=== PATIENT | male | born 1950 | race African-American/Black ===

== ENCOUNTER 2017-06-08 13:41 | Inpatient (IN) | payer OTHER ==
[~2017-06-08] VITALS: Ht 185.4 cm; Wt 80.9 kg
--- NOTE | 2017-06-08 14:35 | RAD ---
Portable chest, 06/08/2017: History: Chest pain Comparison is made to a study from 10/19/2013. The heart size and pulmonary vascularity are normal. No pulmonary infiltrates are seen. There is no evidence of pleural fluid. IMPRESSION: No acute cardiopulmonary abnormality is detected.
[2017-06-08 14:49] LABS: BASO % 1 % (0-3); EOS % 4 % (0-3); HEMOGLOBIN 15.6 g/dL (13.0-17.5); LYMPH # 0.9 x10^3/uL (1.0-4.8); LYMPH % 22 % (24-48); MEAN CORPUSCULAR HEMOGLOBIN 33 pg (25-35); MEAN CORPUSCULAR HGB CONC 34 g/dL (31-37); MEAN CORPUSCULAR VOLUME 97 fL (79-100); MONO % 12 % (0-9); NEUT % 61 % (31-73); PLATELET COUNT 254 x10^3/uL (140-400); RED BLOOD COUNT 4.77 x10^6/uL (4.30-5.70); RED CELL DISTRIBUTION WIDTH 12.9 % (11.5-14.5); WHITE BLOOD COUNT 4.3 x10^3/uL (4.0-11.0)
--- NOTE | 2017-06-08 14:49 | PHYS DOC ---
Past Medical History Past Medical History: MS Past Surgical History: Angioplasty, Other Additional Past Surgical Histo: Cardiac stent 2011 Alcohol Use: Heavy Additional Information: 40 OUNCE BEER EVERY DAY Drug Use: None Adult General Chief Complaint Chief Complaint: MULTIPLE COMPLAINTS [facility] HPI Patient is a 67 year old male with a history of hypertension and coronary artery disease, stent placed 5 years ago presents to the ED complaining of shortness of breath increasing over the last 2 months and worsening over the last 2 days. Patient states he gets shortness of breath and mild chest discomfort with exertion. Patient states he has not seen a doctor since he had a stent placed 5 years ago. States he has quit smoking after the stent placement. Denies any symptoms at this time, dizziness, weakness, syncope, bowel pain, nausea/vomiting, abdominal pain or fever. Review of Systems Review of Systems Constitutional: Denies fever or chills [] Eyes: Denies change in visual acuity, redness, or eye pain [] HENT: Denies nasal congestion or sore throat [] Respiratory: Denies cough or shortness of breath [] Cardiovascular: No additional information not addressed in HPI [] GI: Denies abdominal pain, nausea, vomiting, bloody stools or diarrhea [] : Denies dysuria or hematuria [] Musculoskeletal: Denies back pain or joint pain [] Integument: Denies rash or skin lesions [] Neurologic: Denies headache, focal weakness or sensory changes [] Endocrine: Denies polyuria or polydipsia [] Allergies Allergies Allergies Coded Allergies Type Severity Reaction Last Updated Verified No Known Drug Allergies 10/19/13 No Physical Exam Physical Exam Constitutional: Well developed, well nourished, no acute distress, non-toxic appearance. [] HENT: Normocephalic, atraumatic, bilateral external ears normal, oropharynx moist, no oral exudates, nose normal. [] Eyes: PERRLA, EOMI, conjunctiva normal, no discharge. [] Neck: Normal range of motion, no tenderness, supple, no stridor. [] Cardiovascular:Heart rate regular rhythm, no murmur [] Lungs & Thorax: Bilateral breath sounds clear to auscultation [] Abdomen: Bowel sounds normal, soft, no tenderness, no masses, no pulsatile masses. [] Skin: Warm, dry, no erythema, no rash. [] Back: No tenderness, no CVA tenderness. [] Extremities: No tenderness, no cyanosis, no clubbing, ROM intact, no edema. [] Neurologic: Alert and oriented X 3, normal motor function, normal sensory function, no focal deficits noted. [] Psychologic: Affect normal, judgement normal, mood normal. [] Current Patient Data Vital Signs Vital Signs Date Time Temp Pulse Resp B/P (MAP) Pulse Ox O2 Delivery O2 Flow Rate FiO2 06/08/17 13:46 98.5 64 18 179/85 (116) 99 Room Air 98.5 Lab Values Laboratory Tests Test 06/08/17 14:35 White Blood Count 4.3 x10^3/uL (4.0-11.0) Red Blood Count 4.77 x10^6/uL (4.30-5.70) Hemoglobin 15.6 g/dL (13.0-17.5) Hematocrit 46.0 % (39.0-53.0) Mean Corpuscular Volume 97 fL (79-100) Mean Corpuscular Hemoglobin 33 pg (25-35) Mean Corpuscular Hemoglobin Concent 34 g/dL (31-37) Red Cell Distribution Width 12.9 % (11.5-14.5) Platelet Count 254 x10^3/uL (140-400) Neutrophils (%) (Auto) 61 % (31-73) Lymphocytes (%) (Auto) 22 % (24-48) L Monocytes (%) (Auto) 12 % (0-9) H Eosinophils (%) (Auto) 4 % (0-3) H Basophils (%) (Auto) 1 % (0-3) Neutrophils # (Auto) 2.6 x10^3uL (1.8-7.7) Lymphocytes # (Auto) 0.9 x10^3/uL (1.0-4.8) L Monocytes # (Auto) 0.5 x10^3/uL (0.0-1.1) Eosinophils # (Auto) 0.2 x10^3/uL (0.0-0.7) Basophils # (Auto) 0.0 x10^3/uL (0.0-0.2) Prothrombin Time 12.7 SEC (11.7-14.0) Prothrombin Time INR 1.0 (0.8-1.1) Sodium Level 141 mmol/L (136-145) Potassium Level 3.5 mmol/L (3.5-5.1) Chloride Level 104 mmol/L (98-107) Carbon Dioxide Level 27 mmol/L (21-32) Anion Gap 10 (6-14) Blood Urea Nitrogen 9 mg/dL (8-26) Creatinine 1.0 mg/dL (0.7-1.3) Estimated GFR (Cockcroft-Gault) 90.7 Glucose Level 129 mg/dL (70-99) H Calcium Level 8.8 mg/dL (8.5-10.1) Total Bilirubin 0.8 mg/dL (0.2-1.0) Direct Bilirubin 0.2 mg/dL (0.0-0.2) Aspartate Amino Transferase (AST) 23 U/L (15-37) Alanine Aminotransferase (ALT) 35 U/L (16-63) Alkaline Phosphatase 82 U/L (46-116) Creatine Kinase 105 U/L (39-308) Creatine Kinase MB (Mass) 1.8 ng/mL (0.0-3.6) Creatine Kinase MB Relative Index 1.7 % (0-4) Troponin I Quantitative 0.040 ng/mL (0.000-0.055) VQ-Glv-C-Type Natriuretic Peptide 393 pg/mL (0-124) H Total Protein 8.4 g/dL (6.4-8.2) H Albumin 4.2 g/dL (3.4-5.0) Laboratory Tests 06/08/17 14:35 Laboratory Tests 06/08/17 14:35 EKG EKG EKG shows normal sinus rhythm at 62 bpm, left atrial abnormality, right bundle- branch block, no STEMI, no acute ischemic changes.[] Radiology/Procedures Radiology/Procedures PROCEDURE: PORTABLE CHEST 1V Portable chest, 06/08/2017: History: Chest pain Comparison is made to a study from 10/19/2013. The heart size and pulmonary vascularity are normal. No pulmonary infiltrates are seen. There is no evidence of pleural fluid. IMPRESSION: No acute cardiopulmonary abnormality is detected.[] Course & Med Decision Making Course & Med Decision Making Pertinent Labs and Imaging studies reviewed. (See chart for details) []Discussed case with hospitalist, Dr. Hahn. Agrees to admission and further management patient. Patient stable for admission. Dragon Disclaimer Dragon Disclaimer This electronic medical record was generated, in whole or in part, using a voice recognition dictation system. Departure Departure Impression: Primary Impression: Shortness of breath Additional Impression: Chest pain Disposition: 09 ADMITTED INPATIENT Admitting Physician: Chadd Hahn Condition: STABLE Referrals: NO PCP (PCP) Problem Qualifiers OG SHAH Jun 08, 2017 14:49
--- NOTE | 2017-06-08 14:58 | EKG ---
[facility] [address] [place] [address] Test Date: 2017-06-08 Test Time: 14:20:23 Pat Name: MAXIMO HINOJOSA Department: Room: Gender: M [employer] Maker: : [id number] Requested By: OG SHAH Order Number: [id number] Reading MD: Silvia Reeder Measurements Intervals [place] Rate: 62 P: 63 NH: 88 QRS: 64 QRSD: 128 T: -159 QT: 442 QTc: 451 Interpretive Statements SINUS RHYTHM LEFT ATRIAL ABNORMALITY RIGHT BUNDLE BRANCH BLOCK QRS(T) CONTOUR ABNORMALITY CONSISTENT WITH LATERAL INFARCT AGE UNDETERMINED ABNORMAL ECG Electronically Signed On 06-13-2017 21:51:41 CDT by Silvia Reeder
[2017-06-08 15:01] LABS: PROTHROMBIN TIME PATIENT 12.7 SEC (11.7-14.0)
[2017-06-08 15:05] LABS: CALCIUM 8.8 mg/dL (8.5-10.1); GFR 90.7; POTASSIUM 3.5 mmol/L (3.5-5.1)
[2017-06-08 15:11] LABS: ALBUMIN 4.2 g/dL (3.4-5.0); DIRECT BILIRUBIN 0.2 mg/dL (0.0-0.2); TOTAL BILIRUBIN 0.8 mg/dL (0.2-1.0); TOTAL PROTEIN 8.4 g/dL (6.4-8.2)
[2017-06-08 15:18] LABS: CKMB MASS 1.8 ng/mL (0.0-3.6)
[2017-06-08 15:57] LABS: BILIRUBIN,URINE SMALL (NEG); GLUCOSE,URINE NEGATIVE (NEG); NITRITE,URINE NEGATIVE (NEG); PROTEIN,URINE NEGATIVE (NEG-TRACE)
[2017-06-08 16:07] LABS: BACTERIA,URINE 0 /HPF (0-FEW); RBC,URINE 0 /HPF (0-2); WBC,URINE 0 /HPF (0-4)
[2017-06-08] MEDS ORDERED: MORPHINE SULFATE 4 MG/ML DISP.SYRIN. IV PRN ×2 (16:45→17:45)
[2017-06-08] MEDS ORDERED: ONDANSETRON PF 4 MG/2 ML VIAL. IV PRN ×2 (16:45→17:45)
[2017-06-08 17:45] VITALS: BP 136/88
[2017-06-08] MEDS ORDERED: DOCUSATE SODIUM 100 MG CAPSULE. PO PRN (17:45)
[2017-06-08] MEDS ORDERED: ALBUTEROL SULFATE 2.5 MG/3 ML NEBU. NEB PRN (17:45)
[2017-06-08] MEDS ORDERED: traMADol 50 MG TABLET PO PRN (17:45)
[2017-06-08] MEDS ORDERED: ACETAMINOPHEN 325 MG TABLET. PO PRN (17:45)
[2017-06-08] MEDS ORDERED: hydrALAZINE 20 MG/ML VIAL. IVP PRN (17:45)
--- NOTE | 2017-06-08 17:45 | PDOC1 ---
History and Physical Date of Admission Date of Admission 06/08/17 Identification/Chief Complaint Chief Complaint sob Problems: Source Source: Chart review, Patient History of Present Illness History of Present Illness HPI Patient is a 67 year old male with a history of hypertension and coronary artery disease, stent placed at obtuse marginal branch 2013 here, came to ER for sob for a few months. Pt said since the PCI 2013, he stop smoking, but also stop seeing any PCP or card for a long time and not taking meds. He said he had insurance , but not getting along well with the docs. drinks 1 beer daily. denies drugs. He said in the past few months, he started to feel exertional sob easily, for example, cannot mow yard anymore. When he felt sob, he would feel some chest discomfort too, not real chest pain. Denies cough, fever, chills. He said he can lie flat to sleep, however, he woke up easily recently after sleeping for 10-15min, but not 2/2 sob. He cannot tell if he snores a lot since lives alone. also c/o unsteady gait, feels bl ext tired if walking or standing for a long time, not weakness, sometimes numbness. was found BP 180 in ER. Denies any symptoms at this time, dizziness, weakness, syncope, bowel pain, nausea/vomiting, abdominal pain. Past Medical History Cardiovascular: CAD, HTN Past Surgical History Past Surgical History: No pertinent history Family History Family History: Hypertension Social History Smoke: Quit ALCOHOL: heavy Drugs: None Current Problem List Problem List Problems Medical Problems: (1) Chest pain Status: Acute (2) Shortness of breath Status: Acute Current Medications Current Medications Current Medications Medications (Trade) Dose Ordered Sig/Comfort Start Time Stop Time Status Last Admin Dose Admin Morphine Sulfate 2 mg PRN Q2HR PRN 06/08/17 16:45 06/09/17 16:44 Ondansetron HCl (Zofran) 4 mg PRN Q8HRS PRN 06/08/17 16:45 06/09/17 16:44 Allergies Allergies Allergies Coded Allergies Type Severity Reaction Last Updated Verified No Known Drug Allergies 10/19/13 No ROS Review of System CONSTITUTIONAL: No fever or chills EYES: No recent changes SKIN: No rash or itching CARDIOVASCULAR: No chest pain, syncope, palpitations, or edema RESPIRATORY: + SOB , no cough GASTROINTESTINAL: No nausea, vomiting or abdominal pain NEUROLOGICAL: No headaches or weakness ENDOCRINE: No cold or heat intolerance GENITOURINARY: No urgency or frequency of urination MUSCULOSKELETAL: No back pain or joint pain LYMPHATICS: No enlarged lymph nodes PSYCHIATRIC: No anxiety or depression Physical Exam Physical Exam GEN.: No apparent distress. Alert and oriented. HEENT: Head is normocephalic, atraumatic NECK: Supple. LUNGS: Clear to auscultation. HEART: RRR, S1, S2 present. Peripheral pulses intact ABDOMEN: Soft, nontender. Positive bowel sounds. EXTREMITIES: Without any cyanosis. NEUROLOGIC: Normal speech, normal tone PSYCHIATRIC: Normal affect, normal mood. SKIN: No ulcerations Vitals Vitals Vital Signs Date Time Temp Pulse Resp B/P (MAP) Pulse Ox O2 Delivery O2 Flow Rate FiO2 06/08/17 13:46 98.5 64 18 179/85 (116) 99 Room Air 98.5 Labs Labs Laboratory Tests Test 06/08/17 14:35 06/08/17 15:35 06/08/17 16:45 White Blood Count 4.3 x10^3/uL (4.0-11.0) Red Blood Count 4.77 x10^6/uL (4.30-5.70) Hemoglobin 15.6 g/dL (13.0-17.5) Hematocrit 46.0 % (39.0-53.0) Mean Corpuscular Volume 97 fL (79-100) Mean Corpuscular Hemoglobin 33 pg (25-35) Mean Corpuscular Hemoglobin Concent 34 g/dL (31-37) Red Cell Distribution Width 12.9 % (11.5-14.5) Platelet Count 254 x10^3/uL (140-400) Neutrophils (%) (Auto) 61 % (31-73) Lymphocytes (%) (Auto) 22 % (24-48) Monocytes (%) (Auto) 12 % (0-9) Eosinophils (%) (Auto) 4 % (0-3) Basophils (%) (Auto) 1 % (0-3) Neutrophils # (Auto) 2.6 x10^3uL (1.8-7.7) Lymphocytes # (Auto) 0.9 x10^3/uL (1.0-4.8) Monocytes # (Auto) 0.5 x10^3/uL (0.0-1.1) Eosinophils # (Auto) 0.2 x10^3/uL (0.0-0.7) Basophils # (Auto) 0.0 x10^3/uL (0.0-0.2) Prothrombin Time 12.7 SEC (11.7-14.0) Prothromb Time International Ratio 1.0 (0.8-1.1) Sodium Level 141 mmol/L (136-145) Potassium Level 3.5 mmol/L (3.5-5.1) Chloride Level 104 mmol/L (98-107) Carbon Dioxide Level 27 mmol/L (21-32) Anion Gap 10 (6-14) Blood Urea Nitrogen 9 mg/dL (8-26) Creatinine 1.0 mg/dL (0.7-1.3) Estimated GFR (Cockcroft-Gault) 90.7 Glucose Level 129 mg/dL (70-99) Calcium Level 8.8 mg/dL (8.5-10.1) Total Bilirubin 0.8 mg/dL (0.2-1.0) Direct Bilirubin 0.2 mg/dL (0.0-0.2) Aspartate Amino Transf (AST/SGOT) 23 U/L (15-37) Alanine Aminotransferase (ALT/SGPT) 35 U/L (16-63) Alkaline Phosphatase 82 U/L (46-116) Creatine Kinase 105 U/L (39-308) Creatine Kinase MB (Mass) 1.8 ng/mL (0.0-3.6) Creatine Kinase MB Relative Index 1.7 % (0-4) Troponin I Quantitative 0.040 ng/mL (0.000-0.055) 0.033 ng/mL (0.000-0.055) LM-Vey-Y-Type Natriuretic Peptide 393 pg/mL (0-124) Total Protein 8.4 g/dL (6.4-8.2) Albumin 4.2 g/dL (3.4-5.0) Urine Collection Type Void Urine Color Donna Urine Clarity Clear Urine pH 7.0 Urine Specific [place] 1.025 Urine Protein Negative mg/dL (NEG-TRACE) Urine Glucose (UA) Negative mg/dL (NEG) Urine Ketones (Stick) Negative mg/dL (NEG) Urine Blood Negative (NEG) Urine Nitrite Negative (NEG) Urine Bilirubin Small (NEG) Urine Urobilinogen Dipstick 1.0 mg/dL (0.2 mg/dL) Urine Leukocyte Esterase Negative (NEG) Urine RBC 0 /HPF (0-2) Urine WBC 0 /HPF (0-4) Urine Bacteria 0 /HPF (0-FEW) Urine Mucus Marked /LPF Laboratory Tests Test 06/08/17 14:35 06/08/17 15:35 06/08/17 16:45 White Blood Count 4.3 x10^3/uL (4.0-11.0) Red Blood Count 4.77 x10^6/uL (4.30-5.70) Hemoglobin 15.6 g/dL (13.0-17.5) Hematocrit 46.0 % (39.0-53.0) Mean Corpuscular Volume 97 fL (79-100) Mean Corpuscular Hemoglobin 33 pg (25-35) Mean Corpuscular Hemoglobin Concent 34 g/dL (31-37) Red Cell Distribution Width 12.9 % (11.5-14.5) Platelet Count 254 x10^3/uL (140-400) Neutrophils (%) (Auto) 61 % (31-73) Lymphocytes (%) (Auto) 22 % (24-48) Monocytes (%) (Auto) 12 % (0-9) Eosinophils (%) (Auto) 4 % (0-3) Basophils (%) (Auto) 1 % (0-3) Neutrophils # (Auto) 2.6 x10^3uL (1.8-7.7) Lymphocytes # (Auto) 0.9 x10^3/uL (1.0-4.8) Monocytes # (Auto) 0.5 x10^3/uL (0.0-1.1) Eosinophils # (Auto) 0.2 x10^3/uL (0.0-0.7) Basophils # (Auto) 0.0 x10^3/uL (0.0-0.2) Prothrombin Time 12.7 SEC (11.7-14.0) Prothromb Time International Ratio 1.0 (0.8-1.1) Sodium Level 141 mmol/L (136-145) Potassium Level 3.5 mmol/L (3.5-5.1) Chloride Level 104 mmol/L (98-107) Carbon Dioxide Level 27 mmol/L (21-32) Anion Gap 10 (6-14) Blood Urea Nitrogen 9 mg/dL (8-26) Creatinine 1.0 mg/dL (0.7-1.3) Estimated GFR (Cockcroft-Gault) 90.7 Glucose Level 129 mg/dL (70-99) Calcium Level 8.8 mg/dL (8.5-10.1) Total Bilirubin 0.8 mg/dL (0.2-1.0) Direct Bilirubin 0.2 mg/dL (0.0-0.2) Aspartate Amino Transf (AST/SGOT) 23 U/L (15-37) Alanine Aminotransferase (ALT/SGPT) 35 U/L (16-63) Alkaline Phosphatase 82 U/L (46-116) Creatine Kinase 105 U/L (39-308) Creatine Kinase MB (Mass) 1.8 ng/mL (0.0-3.6) Creatine Kinase MB Relative Index 1.7 % (0-4) Troponin I Quantitative 0.040 ng/mL (0.000-0.055) 0.033 ng/mL (0.000-0.055) MU-Eld-V-Type Natriuretic Peptide 393 pg/mL (0-124) Total Protein 8.4 g/dL (6.4-8.2) Albumin 4.2 g/dL (3.4-5.0) Urine Collection Type Void Urine Color Donna Urine Clarity Clear Urine pH 7.0 Urine Specific [place] 1.025 Urine Protein Negative mg/dL (NEG-TRACE) Urine Glucose (UA) Negative mg/dL (NEG) Urine Ketones (Stick) Negative mg/dL (NEG) Urine Blood Negative (NEG) Urine Nitrite Negative (NEG) Urine Bilirubin Small (NEG) Urine Urobilinogen Dipstick 1.0 mg/dL (0.2 mg/dL) Urine Leukocyte Esterase Negative (NEG) Urine RBC 0 /HPF (0-2) Urine WBC 0 /HPF (0-4) Urine Bacteria 0 /HPF (0-FEW) Urine Mucus Marked /LPF VTE Prophylaxis Ordered VTE Prophylaxis Devices: Yes VTE Pharmacological Prophylaxi: Yes Assessment/Plan Assessment/Plan sob, need to rule out CHF H/O CAD 2013 with 1 stent at obtuse marginal branch HTN urgency uncompliance alcoholism quit smoking unsteady gait plan: card consult cycle CE check tsh, vitb12, orthostatic bp, lipid panel Echo hydralazine prn, add lisinopril for now dvt ppx folic acid, vitb1 MADDI WIGGINS MD Jun 08, 2017 17:45
[2017-06-08] MEDS ORDERED: LISINOPRIL 40 MG TABLET. PO SCH (18:00)
[2017-06-08 19:11] VITALS: BP 150/75
[2017-06-08] MEDS: FOLIC ACID 1 MG TABLET. PO SCH (19:40)
[2017-06-08] MEDS: THIAMINE 100 MG TABLET. PO SCH (19:40)
[2017-06-08] MEDS: ENOXAPARIN 40 MG/0.4 ML SYRINGE. SQ SCH (19:41)
[2017-06-08 21:04] LABS: BARBITURATES NEG (NEG); BENZODIAZEPINES NEG (NEG); CANNABINOIDS NEG (NEG); COCAINE NEG (NEG); METHADONE NEG (NEG); OPIATES NEG (NEG); PHENCYCLIDINE NEG (NEG)
[2017-06-08] MEDS: ZOLPIDEM 5 MG TABLET. PO PRN (22:43)
[2017-06-08 23:00] VITALS: BP 167/93
[2017-06-09 03:00] VITALS: BP 148/95
[2017-06-09 06:04] LABS: ALBUMIN 3.6 g/dL (3.4-5.0); ALBUMIN/GLOBULIN RATIO 1.1 (1.0-1.7); BASO # 0.1 x10^3/uL (0.0-0.2); BASO % 1 % (0-3); CALCIUM 8.9 mg/dL (8.5-10.1); CREATININE 0.8 mg/dL (0.7-1.3); EOS % 5 % (0-3); GFR 117.4; HEMATOCRIT 41.7 % (39.0-53.0); HEMOGLOBIN 14.3 g/dL (13.0-17.5); LYMPH # 1.6 x10^3/uL (1.0-4.8); LYMPH % 33 % (24-48); MEAN CORPUSCULAR HEMOGLOBIN 33 pg (25-35); MEAN CORPUSCULAR HGB CONC 34 g/dL (31-37); MEAN CORPUSCULAR VOLUME 96 fL (79-100); MONO % 15 % (0-9); NEUT % 47 % (31-73); PLATELET COUNT 225 x10^3/uL (140-400); POTASSIUM 3.6 mmol/L (3.5-5.1); RED BLOOD COUNT 4.34 x10^6/uL (4.30-5.70); TOTAL BILIRUBIN 1.5 mg/dL (0.2-1.0); TOTAL PROTEIN 6.9 g/dL (6.4-8.2); WHITE BLOOD COUNT 4.7 x10^3/uL (4.0-11.0)
[2017-06-09 06:07] LABS: CHOLESTEROL/HDL RATIO 2.3
[2017-06-09 07:00] VITALS: BP 145/83
[2017-06-09] MEDS: LISINOPRIL 20 MG TABLET PO SCH (09:00)
--- NOTE | 2017-06-09 10:41 | PDOC ---
PROGRESS NOTES Chief Complaint Chief Complaint chronic diastolic CHF H/O CAD 2013 with 1 stent at obtuse marginal branch HTN poor control, noncompliant with emds alcohol abuse d/o, prior tobaccoism leg weakness, unsteady gait and peripheral neuropathy History of Present Illness History of Present Illness B12 shot, thiamine and folate Dr. Hardwick consult for leg weakness, may be peripheral, htn better control, Dr. Lowry to follow, no ACS Vitals Vitals Vital Signs Date Time Temp Pulse Resp B/P (MAP) Pulse Ox O2 Delivery O2 Flow Rate FiO2 06/09/17 07:00 98.1 63 18 145/83 (103) 98 Room Air 98.1 Physical Exam General: Oriented X3, Cooperative, No acute distress Heart: Regular rate, No murmurs Lungs: Clear Abdomen: Normal bowel sounds, Soft Extremities: No clubbing Skin: No rashes, No breakdown Labs LABS Laboratory Tests Test 06/08/17 14:35 06/08/17 15:35 06/08/17 16:45 06/08/17 19:40 White Blood Count 4.3 x10^3/uL (4.0-11.0) Red Blood Count 4.77 x10^6/uL (4.30-5.70) Hemoglobin 15.6 g/dL (13.0-17.5) Hematocrit 46.0 % (39.0-53.0) Mean Corpuscular Volume 97 fL (79-100) Mean Corpuscular Hemoglobin 33 pg (25-35) Mean Corpuscular Hemoglobin Concent 34 g/dL (31-37) Red Cell Distribution Width 12.9 % (11.5-14.5) Platelet Count 254 x10^3/uL (140-400) Neutrophils (%) (Auto) 61 % (31-73) Lymphocytes (%) (Auto) 22 % (24-48) Monocytes (%) (Auto) 12 % (0-9) Eosinophils (%) (Auto) 4 % (0-3) Basophils (%) (Auto) 1 % (0-3) Neutrophils # (Auto) 2.6 x10^3uL (1.8-7.7) Lymphocytes # (Auto) 0.9 x10^3/uL (1.0-4.8) Monocytes # (Auto) 0.5 x10^3/uL (0.0-1.1) Eosinophils # (Auto) 0.2 x10^3/uL (0.0-0.7) Basophils # (Auto) 0.0 x10^3/uL (0.0-0.2) Prothrombin Time 12.7 SEC (11.7-14.0) Prothromb Time International Ratio 1.0 (0.8-1.1) Sodium Level 141 mmol/L (136-145) Potassium Level 3.5 mmol/L (3.5-5.1) Chloride Level 104 mmol/L (98-107) Carbon Dioxide Level 27 mmol/L (21-32) Anion Gap 10 (6-14) Blood Urea Nitrogen 9 mg/dL (8-26) Creatinine 1.0 mg/dL (0.7-1.3) Estimated GFR (Cockcroft-Gault) 90.7 Glucose Level 129 mg/dL (70-99) Calcium Level 8.8 mg/dL (8.5-10.1) Total Bilirubin 0.8 mg/dL (0.2-1.0) Direct Bilirubin 0.2 mg/dL (0.0-0.2) Aspartate Amino Transf (AST/SGOT) 23 U/L (15-37) Alanine Aminotransferase (ALT/SGPT) 35 U/L (16-63) Alkaline Phosphatase 82 U/L (46-116) Creatine Kinase 105 U/L (39-308) Creatine Kinase MB (Mass) 1.8 ng/mL (0.0-3.6) Creatine Kinase MB Relative Index 1.7 % (0-4) Troponin I Quantitative 0.040 ng/mL (0.000-0.055) 0.033 ng/mL (0.000-0.055) 0.028 ng/mL (0.000-0.055) KE-Gtl-Q-Type Natriuretic Peptide 393 pg/mL (0-124) Total Protein 8.4 g/dL (6.4-8.2) Albumin 4.2 g/dL (3.4-5.0) Urine Collection Type Void Urine Color Donna Urine Clarity Clear Urine pH 7.0 Urine Specific [place] 1.025 Urine Protein Negative mg/dL (NEG-TRACE) Urine Glucose (UA) Negative mg/dL (NEG) Urine Ketones (Stick) Negative mg/dL (NEG) Urine Blood Negative (NEG) Urine Nitrite Negative (NEG) Urine Bilirubin Small (NEG) Urine Urobilinogen Dipstick 1.0 mg/dL (0.2 mg/dL) Urine Leukocyte Esterase Negative (NEG) Urine RBC 0 /HPF (0-2) Urine WBC 0 /HPF (0-4) Urine Bacteria 0 /HPF (0-FEW) Urine Mucus Marked /LPF Urine Opiates Screen Neg (NEG) Urine Methadone Screen Neg (NEG) Urine Barbiturates Neg (NEG) Urine Phencyclidine Screen Neg (NEG) Urine Amphetamine/Methamphetamine Neg (NEG) Urine Benzodiazepines Screen Neg (NEG) Urine Cocaine Screen Neg (NEG) Urine Cannabinoids Screen Neg (NEG) Urine Ethyl Alcohol Neg (NEG) Test 06/09/17 04:40 White Blood Count 4.7 x10^3/uL (4.0-11.0) Red Blood Count 4.34 x10^6/uL (4.30-5.70) Hemoglobin 14.3 g/dL (13.0-17.5) Hematocrit 41.7 % (39.0-53.0) Mean Corpuscular Volume 96 fL (79-100) Mean Corpuscular Hemoglobin 33 pg (25-35) Mean Corpuscular Hemoglobin Concent 34 g/dL (31-37) Red Cell Distribution Width 13.0 % (11.5-14.5) Platelet Count 225 x10^3/uL (140-400) Neutrophils (%) (Auto) 47 % (31-73) Lymphocytes (%) (Auto) 33 % (24-48) Monocytes (%) (Auto) 15 % (0-9) Eosinophils (%) (Auto) 5 % (0-3) Basophils (%) (Auto) 1 % (0-3) Neutrophils # (Auto) 2.2 x10^3uL (1.8-7.7) Lymphocytes # (Auto) 1.6 x10^3/uL (1.0-4.8) Monocytes # (Auto) 0.7 x10^3/uL (0.0-1.1) Eosinophils # (Auto) 0.2 x10^3/uL (0.0-0.7) Basophils # (Auto) 0.1 x10^3/uL (0.0-0.2) Sodium Level 138 mmol/L (136-145) Potassium Level 3.6 mmol/L (3.5-5.1) Chloride Level 103 mmol/L (98-107) Carbon Dioxide Level 25 mmol/L (21-32) Anion Gap 10 (6-14) Blood Urea Nitrogen 10 mg/dL (8-26) Creatinine 0.8 mg/dL (0.7-1.3) Estimated GFR (Cockcroft-Gault) 117.4 BUN/Creatinine Ratio 13 (6-20) Glucose Level 98 mg/dL (70-99) Calcium Level 8.9 mg/dL (8.5-10.1) Total Bilirubin 1.5 mg/dL (0.2-1.0) Aspartate Amino Transf (AST/SGOT) 18 U/L (15-37) Alanine Aminotransferase (ALT/SGPT) 28 U/L (16-63) Alkaline Phosphatase 67 U/L (46-116) Troponin I Quantitative 0.024 ng/mL (0.000-0.055) Total Protein 6.9 g/dL (6.4-8.2) Albumin 3.6 g/dL (3.4-5.0) Albumin/Globulin Ratio 1.1 (1.0-1.7) Triglycerides Level 66 mg/dL (0-150) Cholesterol Level 148 mg/dL (0-200) LDL Cholesterol, Calculated 70 mg/dL (0-100) VLDL Cholesterol, Calculated 13 mg/dL (0-40) Non-HDL Cholesterol Calculated 83 mg/dL (0-129) HDL Cholesterol 65 mg/dL (40-60) Cholesterol/HDL Ratio 2.3 Vitamin B12 Level 284 pg/mL (247-911) Thyroid Stimulating Hormone (TSH) 1.792 uIU/mL (0.358-3.74) Review of Systems Review of Systems leg weakness, dyspnea with exertion Assessment and Plan Assessmemt and Plan Problems Medical Problems: (1) Chest pain Status: Acute (2) Shortness of breath Status: Acute Problems: Comment Review of Relevant I have reviewed the following items chetan (where applicable) has been applied. Labs Laboratory Tests Test 06/08/17 14:35 06/08/17 15:35 06/08/17 16:45 06/08/17 19:40 White Blood Count 4.3 x10^3/uL (4.0-11.0) Red Blood Count 4.77 x10^6/uL (4.30-5.70) Hemoglobin 15.6 g/dL (13.0-17.5) Hematocrit 46.0 % (39.0-53.0) Mean Corpuscular Volume 97 fL (79-100) Mean Corpuscular Hemoglobin 33 pg (25-35) Mean Corpuscular Hemoglobin Concent 34 g/dL (31-37) Red Cell Distribution Width 12.9 % (11.5-14.5) Platelet Count 254 x10^3/uL (140-400) Neutrophils (%) (Auto) 61 % (31-73) Lymphocytes (%) (Auto) 22 % (24-48) Monocytes (%) (Auto) 12 % (0-9) Eosinophils (%) (Auto) 4 % (0-3) Basophils (%) (Auto) 1 % (0-3) Neutrophils # (Auto) 2.6 x10^3uL (1.8-7.7) Lymphocytes # (Auto) 0.9 x10^3/uL (1.0-4.8) Monocytes # (Auto) 0.5 x10^3/uL (0.0-1.1) Eosinophils # (Auto) 0.2 x10^3/uL (0.0-0.7) Basophils # (Auto) 0.0 x10^3/uL (0.0-0.2) Prothrombin Time 12.7 SEC (11.7-14.0) Prothromb Time International Ratio 1.0 (0.8-1.1) Sodium Level 141 mmol/L (136-145) Potassium Level 3.5 mmol/L (3.5-5.1) Chloride Level 104 mmol/L (98-107) Carbon Dioxide Level 27 mmol/L (21-32) Anion Gap 10 (6-14) Blood Urea Nitrogen 9 mg/dL (8-26) Creatinine 1.0 mg/dL (0.7-1.3) Estimated GFR (Cockcroft-Gault) 90.7 Glucose Level 129 mg/dL (70-99) Calcium Level 8.8 mg/dL (8.5-10.1) Total Bilirubin 0.8 mg/dL (0.2-1.0) Direct Bilirubin 0.2 mg/dL (0.0-0.2) Aspartate Amino Transf (AST/SGOT) 23 U/L (15-37) Alanine Aminotransferase (ALT/SGPT) 35 U/L (16-63) Alkaline Phosphatase 82 U/L (46-116) Creatine Kinase 105 U/L (39-308) Creatine Kinase MB (Mass) 1.8 ng/mL (0.0-3.6) Creatine Kinase MB Relative Index 1.7 % (0-4) Troponin I Quantitative 0.040 ng/mL (0.000-0.055) 0.033 ng/mL (0.000-0.055) 0.028 ng/mL (0.000-0.055) BA-Trz-M-Type Natriuretic Peptide 393 pg/mL (0-124) Total Protein 8.4 g/dL (6.4-8.2) Albumin 4.2 g/dL (3.4-5.0) Urine Collection Type Void Urine Color Donna Urine Clarity Clear Urine pH 7.0 Urine Specific [place] 1.025 Urine Protein Negative mg/dL (NEG-TRACE) Urine Glucose (UA) Negative mg/dL (NEG) Urine Ketones (Stick) Negative mg/dL (NEG) Urine Blood Negative (NEG) Urine Nitrite Negative (NEG) Urine Bilirubin Small (NEG) Urine Urobilinogen Dipstick 1.0 mg/dL (0.2 mg/dL) Urine Leukocyte Esterase Negative (NEG) Urine RBC 0 /HPF (0-2) Urine WBC 0 /HPF (0-4) Urine Bacteria 0 /HPF (0-FEW) Urine Mucus Marked /LPF Urine Opiates Screen Neg (NEG) Urine Methadone Screen Neg (NEG) Urine Barbiturates Neg (NEG) Urine Phencyclidine Screen Neg (NEG) Urine Amphetamine/Methamphetamine Neg (NEG) Urine Benzodiazepines Screen Neg (NEG) Urine Cocaine Screen Neg (NEG) Urine Cannabinoids Screen Neg (NEG) Urine Ethyl Alcohol Neg (NEG) Test 06/09/17 04:40 White Blood Count 4.7 x10^3/uL (4.0-11.0) Red Blood Count 4.34 x10^6/uL (4.30-5.70) Hemoglobin 14.3 g/dL (13.0-17.5) Hematocrit 41.7 % (39.0-53.0) Mean Corpuscular Volume 96 fL (79-100) Mean Corpuscular Hemoglobin 33 pg (25-35) Mean Corpuscular Hemoglobin Concent 34 g/dL (31-37) Red Cell Distribution Width 13.0 % (11.5-14.5) Platelet Count 225 x10^3/uL (140-400) Neutrophils (%) (Auto) 47 % (31-73) Lymphocytes (%) (Auto) 33 % (24-48) Monocytes (%) (Auto) 15 % (0-9) Eosinophils (%) (Auto) 5 % (0-3) Basophils (%) (Auto) 1 % (0-3) Neutrophils # (Auto) 2.2 x10^3uL (1.8-7.7) Lymphocytes # (Auto) 1.6 x10^3/uL (1.0-4.8) Monocytes # (Auto) 0.7 x10^3/uL (0.0-1.1) Eosinophils # (Auto) 0.2 x10^3/uL (0.0-0.7) Basophils # (Auto) 0.1 x10^3/uL (0.0-0.2) Sodium Level 138 mmol/L (136-145) Potassium Level 3.6 mmol/L (3.5-5.1) Chloride Level 103 mmol/L (98-107) Carbon Dioxide Level 25 mmol/L (21-32) Anion Gap 10 (6-14) Blood Urea Nitrogen 10 mg/dL (8-26) Creatinine 0.8 mg/dL (0.7-1.3) Estimated GFR (Cockcroft-Gault) 117.4 BUN/Creatinine Ratio 13 (6-20) Glucose Level 98 mg/dL (70-99) Calcium Level 8.9 mg/dL (8.5-10.1) Total Bilirubin 1.5 mg/dL (0.2-1.0) Aspartate Amino Transf (AST/SGOT) 18 U/L (15-37) Alanine Aminotransferase (ALT/SGPT) 28 U/L (16-63) Alkaline Phosphatase 67 U/L (46-116) Troponin I Quantitative 0.024 ng/mL (0.000-0.055) Total Protein 6.9 g/dL (6.4-8.2) Albumin 3.6 g/dL (3.4-5.0) Albumin/Globulin Ratio 1.1 (1.0-1.7) Triglycerides Level 66 mg/dL (0-150) Cholesterol Level 148 mg/dL (0-200) LDL Cholesterol, Calculated 70 mg/dL (0-100) VLDL Cholesterol, Calculated 13 mg/dL (0-40) Non-HDL Cholesterol Calculated 83 mg/dL (0-129) HDL Cholesterol 65 mg/dL (40-60) Cholesterol/HDL Ratio 2.3 Vitamin B12 Level 284 pg/mL (247-911) Thyroid Stimulating Hormone (TSH) 1.792 uIU/mL (0.358-3.74) Laboratory Tests Test 06/08/17 14:35 06/08/17 15:35 06/08/17 16:45 06/08/17 19:40 White Blood Count 4.3 x10^3/uL (4.0-11.0) Red Blood Count 4.77 x10^6/uL (4.30-5.70) Hemoglobin 15.6 g/dL (13.0-17.5) Hematocrit 46.0 % (39.0-53.0) Mean Corpuscular Volume 97 fL (79-100) Mean Corpuscular Hemoglobin 33 pg (25-35) Mean Corpuscular Hemoglobin Concent 34 g/dL (31-37) Red Cell Distribution Width 12.9 % (11.5-14.5) Platelet Count 254 x10^3/uL (140-400) Neutrophils (%) (Auto) 61 % (31-73) Lymphocytes (%) (Auto) 22 % (24-48) Monocytes (%) (Auto) 12 % (0-9) Eosinophils (%) (Auto) 4 % (0-3) Basophils (%) (Auto) 1 % (0-3) Neutrophils # (Auto) 2.6 x10^3uL (1.8-7.7) Lymphocytes # (Auto) 0.9 x10^3/uL (1.0-4.8) Monocytes # (Auto) 0.5 x10^3/uL (0.0-1.1) Eosinophils # (Auto) 0.2 x10^3/uL (0.0-0.7) Basophils # (Auto) 0.0 x10^3/uL (0.0-0.2) Prothrombin Time 12.7 SEC (11.7-14.0) Prothromb Time International Ratio 1.0 (0.8-1.1) Sodium Level 141 mmol/L (136-145) Potassium Level 3.5 mmol/L (3.5-5.1) Chloride Level 104 mmol/L (98-107) Carbon Dioxide Level 27 mmol/L (21-32) Anion Gap 10 (6-14) Blood Urea Nitrogen 9 mg/dL (8-26) Creatinine 1.0 mg/dL (0.7-1.3) Estimated GFR (Cockcroft-Gault) 90.7 Glucose Level 129 mg/dL (70-99) Calcium Level 8.8 mg/dL (8.5-10.1) Total Bilirubin 0.8 mg/dL (0.2-1.0) Direct Bilirubin 0.2 mg/dL (0.0-0.2) Aspartate Amino Transf (AST/SGOT) 23 U/L (15-37) Alanine Aminotransferase (ALT/SGPT) 35 U/L (16-63) Alkaline Phosphatase 82 U/L (46-116) Creatine Kinase 105 U/L (39-308) Creatine Kinase MB (Mass) 1.8 ng/mL (0.0-3.6) Creatine Kinase MB Relative Index 1.7 % (0-4) Troponin I Quantitative 0.040 ng/mL (0.000-0.055) 0.033 ng/mL (0.000-0.055) 0.028 ng/mL (0.000-0.055) GX-Ffx-D-Type Natriuretic Peptide 393 pg/mL (0-124) Total Protein 8.4 g/dL (6.4-8.2) Albumin 4.2 g/dL (3.4-5.0) Urine Collection Type Void Urine Color Donna Urine Clarity Clear Urine pH 7.0 Urine Specific [place] 1.025 Urine Protein Negative mg/dL (NEG-TRACE) Urine Glucose (UA) Negative mg/dL (NEG) Urine Ketones (Stick) Negative mg/dL (NEG) Urine Blood Negative (NEG) Urine Nitrite Negative (NEG) Urine Bilirubin Small (NEG) Urine Urobilinogen Dipstick 1.0 mg/dL (0.2 mg/dL) Urine Leukocyte Esterase Negative (NEG) Urine RBC 0 /HPF (0-2) Urine WBC 0 /HPF (0-4) Urine Bacteria 0 /HPF (0-FEW) Urine Mucus Marked /LPF Urine Opiates Screen Neg (NEG) Urine Methadone Screen Neg (NEG) Urine Barbiturates Neg (NEG) Urine Phencyclidine Screen Neg (NEG) Urine Amphetamine/Methamphetamine Neg (NEG) Urine Benzodiazepines Screen Neg (NEG) Urine Cocaine Screen Neg (NEG) Urine Cannabinoids Screen Neg (NEG) Urine Ethyl Alcohol Neg (NEG) Test 06/09/17 04:40 White Blood Count 4.7 x10^3/uL (4.0-11.0) Red Blood Count 4.34 x10^6/uL (4.30-5.70) Hemoglobin 14.3 g/dL (13.0-17.5) Hematocrit 41.7 % (39.0-53.0) Mean Corpuscular Volume 96 fL (79-100) Mean Corpuscular Hemoglobin 33 pg (25-35) Mean Corpuscular Hemoglobin Concent 34 g/dL (31-37) Red Cell Distribution Width 13.0 % (11.5-14.5) Platelet Count 225 x10^3/uL (140-400) Neutrophils (%) (Auto) 47 % (31-73) Lymphocytes (%) (Auto) 33 % (24-48) Monocytes (%) (Auto) 15 % (0-9) Eosinophils (%) (Auto) 5 % (0-3) Basophils (%) (Auto) 1 % (0-3) Neutrophils # (Auto) 2.2 x10^3uL (1.8-7.7) Lymphocytes # (Auto) 1.6 x10^3/uL (1.0-4.8) Monocytes # (Auto) 0.7 x10^3/uL (0.0-1.1) Eosinophils # (Auto) 0.2 x10^3/uL (0.0-0.7) Basophils # (Auto) 0.1 x10^3/uL (0.0-0.2) Sodium Level 138 mmol/L (136-145) Potassium Level 3.6 mmol/L (3.5-5.1) Chloride Level 103 mmol/L (98-107) Carbon Dioxide Level 25 mmol/L (21-32) Anion Gap 10 (6-14) Blood Urea Nitrogen 10 mg/dL (8-26) Creatinine 0.8 mg/dL (0.7-1.3) Estimated GFR (Cockcroft-Gault) 117.4 BUN/Creatinine Ratio 13 (6-20) Glucose Level 98 mg/dL (70-99) Calcium Level 8.9 mg/dL (8.5-10.1) Total Bilirubin 1.5 mg/dL (0.2-1.0) Aspartate Amino Transf (AST/SGOT) 18 U/L (15-37) Alanine Aminotransferase (ALT/SGPT) 28 U/L (16-63) Alkaline Phosphatase 67 U/L (46-116) Troponin I Quantitative 0.024 ng/mL (0.000-0.055) Total Protein 6.9 g/dL (6.4-8.2) Albumin 3.6 g/dL (3.4-5.0) Albumin/Globulin Ratio 1.1 (1.0-1.7) Triglycerides Level 66 mg/dL (0-150) Cholesterol Level 148 mg/dL (0-200) LDL Cholesterol, Calculated 70 mg/dL (0-100) VLDL Cholesterol, Calculated 13 mg/dL (0-40) Non-HDL Cholesterol Calculated 83 mg/dL (0-129) HDL Cholesterol 65 mg/dL (40-60) Cholesterol/HDL Ratio 2.3 Vitamin B12 Level 284 pg/mL (247-911) Thyroid Stimulating Hormone (TSH) 1.792 uIU/mL (0.358-3.74) Medications Current Medications Ondansetron HCl (Zofran) 4 mg PRN Q8HRS PRN IV NAUSEA/VOMITING; Start 06/08/17 at 16:45; Stop 06/09/17 at 16:44 Morphine Sulfate 2 mg PRN Q2HR PRN IV PAIN; Start 06/08/17 at 16:45; Stop 06/09 at 16:44 Acetaminophen (Tylenol) 650 mg PRN Q6HRS PRN PO FEVER; Start 06/08/17 at 17:45 Ondansetron HCl (Zofran) 4 mg PRN Q6HRS PRN IV NAUSEA/VOMITING; Start 06/08/17 at 17:45 Morphine Sulfate 2 mg PRN Q2HR PRN IV PAIN; Start 06/08/17 at 17:45 Tramadol HCl (Ultram) 50 mg PRN Q6HRS PRN PO PAIN MILD TO MOD; Start 06/08/17 at 17:45 Hydralazine HCl (Apresoline) 10 mg PRN Q4HRS PRN IVP ELEVATED BP, SEE COMMENTS ; Start 06/08/17 at 17:45 Docusate Sodium (Colace) 100 mg PRN DAILY PRN PO CONSTIPATION; Start 06/08/17 at 17:45 Albuterol Sulfate (Ventolin Neb Soln) 2.5 mg PRN Q4HRS PRN NEB SHORTNESS OF BREATH; Start 06/08/17 at 17:45 Enoxaparin Sodium (Lovenox 40mg Syringe) 40 mg Q24H SQ Last administered on 19:41; Start 06/08/17 at 18:00 Folic Acid (Folic Acid) 1 mg DAILY PO Last administered on 06/08/17 19:40; Start 06/08/17 at 18:00 Thiamine Mononitrate (Vitamin B-1) 100 mg DAILY PO Last administered on 19:40; Start 06/08/17 at 18:00 Lorazepam (Ativan) 2 mg PRN Q4HRS PRN IV ANXIETY / AGITATION Last administered on 06/09/17 00:49; Start 06/08/17 at 17:45 Lisinopril (Prinivil) 40 mg DAILY PO ; Start 06/08/17 at 18:00; Stop 06/08/17 at 18:45; Status DC Lisinopril (Prinivil) 20 mg DAILY PO ; Start 06/09/17 at 09:00 Zolpidem Tartrate (Ambien) 5 mg PRN QHS PRN PO INSOMNIA Last administered on 22:43; Start 06/08/17 at 20:45 Vitamin B Complex (Folbic Tablet) 1 tab DAILY PO ; Start 06/09/17 at 10:30 Active Scripts Active Reported [none] Vitals/I & O Vital Sign - Last 24 Hours 06/08/17 06/08/17 06/08/17 06/08/17 13:46 15:11 15:41 16:11 Temp 98.5 98.5 Pulse 64 68 64 64 Resp 18 15 17 18 B/P (MAP) 179/85 (116) 167/94 (118) 178/99 (125) 148/94 (112) Pulse Ox 99 97 97 98 O2 Delivery Room Air Room Air Room Air Room Air 06/08/17 06/08/17 06/08/17 06/08/17 16:41 17:45 18:06 19:11 Temp 98.2 98.2 98.2 98.2 Pulse 62 86 70 Resp 18 20 18 B/P (MAP) 153/92 (112) 136/88 (104) 150/75 (100) Pulse Ox 98 98 99 O2 Delivery Room Air Room Air Room Air Room Air 06/08/17 06/08/17 06/09/17 06/09/17 20:00 23:00 03:00 07:00 Temp 98.1 98.0 98.1 98.1 98.0 98.1 Pulse 65 74 63 Resp 18 18 18 B/P (MAP) 167/93 (117) 148/95 (112) 145/83 (103) Pulse Ox 96 99 98 O2 Delivery Room Air Room Air Room Air Room Air RAISSA VENEGAS MD Jun 09, 2017 10:41
[2017-06-09] MEDS ORDERED: CYANOCOBALAMIN (VITAMIN B-12) 1,000 MCG/ML VIAL IM ONE (10:45)
[2017-06-09 11:27] VITALS: BP 156/92
--- NOTE | 2017-06-09 11:37 | CARD ---
APPROVED REPORT EXAM: Two-dimensional and M-mode echocardiogram with Doppler and color Doppler. Other Information Quality : Average Rhythm : NSR INDICATION Congestive Heart Failure 2D DIMENSIONS RVDd3.0 (2.9-3.5cm)Left Atrium(2D)3.5 (1.6-4.0cm) IVSd1.2 (0.7-1.1cm)Aortic Root(2D)2.9 (2.0-3.7cm) LVDd4.8 (3.9-5.9cm)LVOT Diameter2.0 (1.8-2.4cm) PWd1.2 (0.7-1.1cm)LVDs3.1 (2.5-4.0cm) FS (%) 36.0 %SV71.9 ml LVEF(%)65.5 (>50%) Aortic Valve AoV Peak Andreas.103.6cm/sAoV VTI19.8cm AO Peak GR.4.3mmHgLVOT Peak Andreas.91.7cm/s LVOT VTI 21.35cmAO Mean GR.2mmHg MICHAEL (VMAX)2.69pp8SJV (VTI)3.32cm2 Mitral Valve MV E Ccwvrgup28.2cm/sMV DECEL [id number] MV A Kemcbkvr59.0cm/sMV SWO028mr E/A Ratio0.8MV A Aapynasd438kx MVA (PHT)1.98cm2 TDI E/Lateral E'11.6E/Medial E'10.1 Pulmonary Valve PV Peak Gbdncimp15.9cm/sPV Peak Grad.3mmHg RVOT VTI15.0cm Tricuspid Valve TR P. [id number]/sRAP ODIRREXK0sfTm TR Peak Gr.44tjZbESGV21thGd Pulmonary Vein S1 Wzolttwy67.9cm/sD2 Conuifwn09.5cm/s LEFT VENTRICLE The left ventricle is normal size. There is normal left ventricular wall thickness. Left ventricle sy stolic function is normal. The Ejection Fraction is 60-65%. There is normal LV segmental wall motion. Tissue Doppler imaging reveals mild left ventricular diastolic dysfunction. Transmitral Doppler flow pattern is Grade I-abnormal relaxation pattern. There is no ventricular septal defect visualized. RIGHT VENTRICLE The right ventricle is normal size. The right ventricular systolic function is normal. ATRIA The left atrium size is normal. The right atrium size is normal. The interatrial septum is intact wit h no evidence for an atrial septal defect or patent foramen ovale as noted on 2-D or Doppler imaging. AORTIC VALVE The aortic valve is normal in structure and function. The aortic valve is trileaflet. Doppler and Col or Flow revealed no significant aortic regurgitation. There is no significant aortic valvular stenosi s. MITRAL VALVE The mitral valve is normal in structure and function. There is no mitral valve stenosis. Doppler and Color Flow revealed trace to mild mitral regurgitation. TRICUSPID VALVE The tricuspid valve is normal in structure and function. Doppler and Color Flow revealed mild tricusp id regurgitation. The PA pressure was estimated at 27 mmHg. There is no tricuspid valve stenosis. PULMONIC VALVE The pulmonic valve is not well visualized. Doppler and Color Flow revealed no pulmonic valvular regur gitation. There is no pulmonic valvular stenosis. GREAT VESSELS The aortic root is normal in size. The ascending aorta is normal in size. Normal pulmonary venous wayne w (Doppler). The IVC is normal in size and collapses >50% with inspiration. PERICARDIAL EFFUSION There is no evidence of significant pericardial effusion. Critical Notification Critical Value: No <Conclusion> Left ventricle systolic function is normal. The Ejection Fraction is 60-65%. There is normal LV segmental wall motion. Transmitral Doppler flow pattern is Grade I-abnormal relaxation pattern. Trace to mild mitral regurgitation. Mild tricuspid regurgitation. The PA pressure was estimated at 27 mmHg. There is no evidence of significant pericardial effusion.
[2017-06-09] MEDS: THIAMINE 100 MG TABLET. PO SCH (13:46)
[2017-06-09] MEDS: FOLIC ACID 1 MG TABLET. PO SCH (13:46)
[2017-06-09] MEDS: VITAMIN B12,B9,B6 COMPLEX 1 TABLET. PO SCH (13:46)
[2017-06-09 15:18] VITALS: BP 128/69
[2017-06-09] MEDS: ENOXAPARIN 40 MG/0.4 ML SYRINGE. SQ SCH (18:00)
[2017-06-09 19:00] VITALS: BP 135/81
--- NOTE | 2017-06-09 20:13 | PDOC2 ---
CONSULT Date of Consult Date of Consult DATE: 06/09/17 TIME: 19:47 Reason for Consult Reason for Consult: Chest pain History of Present Illness Reason for Visit: This patient is a 67-year-old gentleman that is a smoker and has a known history of coronary artery disease. He had a stent done about 5 years ago. He has not followed up with cardiology since then. The patient started developing some problems where he felt like his feet where tingling and they were aching. This gradually worked its way up until he developed a severe headache. The patient had some chest discomfort and tightness around the neck. Discs symptoms continued to get worse and the patient started to feel lightheaded and he decided to come into the emergency room to be evaluated. He was seen in the ER and was then admitted for further care. At the time that I saw him the patient denies having any chest discomforts. He denied any loss of consciousness. After arrival an echocardiogram was done that showed: Left ventricle systolic function is normal. The Ejection Fraction is 60-65%. There is normal LV segmental wall motion. Transmitral Doppler flow pattern is Grade I-abnormal relaxation pattern. Trace to mild mitral regurgitation. Mild tricuspid regurgitation. The PA pressure was estimated at 27 mmHg. There is no evidence of significant pericardial effusion. Past Medical History Cardiovascular: CAD, HTN Past Surgical History Past Surgical History: No pertinent history Family History Family History: Hypertension Social History Quit ALCOHOL: heavy Drugs: None Current Problem List Problem List Problems Medical Problems: (1) Chest pain Status: Acute (2) Shortness of breath Status: Acute Current Medications Current Medications Current Medications Ondansetron HCl (Zofran) 4 mg PRN Q8HRS PRN IV NAUSEA/VOMITING; Start 06/08/17 at 16:45; Stop 06/09/17 at 14:42; Status DC Morphine Sulfate 2 mg PRN Q2HR PRN IV PAIN; Start 06/08/17 at 16:45; Stop 06/09 at 14:42; Status DC Acetaminophen (Tylenol) 650 mg PRN Q6HRS PRN PO FEVER; Start 06/08/17 at 17:45 Ondansetron HCl (Zofran) 4 mg PRN Q6HRS PRN IV NAUSEA/VOMITING; Start 06/08/17 at 17:45 Morphine Sulfate 2 mg PRN Q2HR PRN IV PAIN; Start 06/08/17 at 17:45 Tramadol HCl (Ultram) 50 mg PRN Q6HRS PRN PO PAIN MILD TO MOD; Start 06/08/17 at 17:45 Hydralazine HCl (Apresoline) 10 mg PRN Q4HRS PRN IVP ELEVATED BP, SEE COMMENTS ; Start 06/08/17 at 17:45 Docusate Sodium (Colace) 100 mg PRN DAILY PRN PO CONSTIPATION; Start 06/08/17 at 17:45 Albuterol Sulfate (Ventolin Neb Soln) 2.5 mg PRN Q4HRS PRN NEB SHORTNESS OF BREATH; Start 06/08/17 at 17:45 Enoxaparin Sodium (Lovenox 40mg Syringe) 40 mg Q24H SQ Last administered on 19:41; Start 06/08/17 at 18:00 Folic Acid (Folic Acid) 1 mg DAILY PO Last administered on 06/09/17 13:46; Start 06/08/17 at 18:00 Thiamine Mononitrate (Vitamin B-1) 100 mg DAILY PO Last administered on 13:46; Start 06/08/17 at 18:00 Lorazepam (Ativan) 2 mg PRN Q4HRS PRN IV ANXIETY / AGITATION Last administered on 06/09/17 00:49; Start 06/08/17 at 17:45 Lisinopril (Prinivil) 40 mg DAILY PO ; Start 06/08/17 at 18:00; Stop 06/08/17 at 18:45; Status DC Lisinopril (Prinivil) 20 mg DAILY PO ; Start 06/09/17 at 09:00 Zolpidem Tartrate (Ambien) 5 mg PRN QHS PRN PO INSOMNIA Last administered on 22:43; Start 06/08/17 at 20:45 Vitamin B Complex (Folbic Tablet) 1 tab DAILY PO Last administered on 13:46; Start 06/09/17 at 10:30 Cyanocobalamin (Vitamin B-12) 1,000 mcg 1X ONCE IM Last administered on 13:46; Start 06/09/17 at 10:45; Stop 06/09/17 at 10:46; Status DC Active Scripts Active Reported [none] Allergies Allergies: Coded Allergies: No Known Drug Allergies (Unverified , 10/19/13) Physical Exam General: Alert, Oriented X3, Cooperative HEENT: Atraumatic, PERRLA Lungs: Clear to auscultation Heart: Regular rate, Normal S1, Normal S2 Abdomen: Normal bowel sounds, Soft Extremities: No edema, Normal pulses Vitals VITALS Vital Signs Date Time Temp Pulse Resp B/P (MAP) Pulse Ox O2 Delivery O2 Flow Rate FiO2 06/09/17 15:18 97.9 71 18 128/69 (88) 97 Room Air 97.9 Labs Labs Laboratory Tests Test 06/08/17 14:35 06/08/17 15:35 06/08/17 16:45 06/08/17 19:40 White Blood Count 4.3 x10^3/uL (4.0-11.0) Red Blood Count 4.77 x10^6/uL (4.30-5.70) Hemoglobin 15.6 g/dL (13.0-17.5) Hematocrit 46.0 % (39.0-53.0) Mean Corpuscular Volume 97 fL (79-100) Mean Corpuscular Hemoglobin 33 pg (25-35) Mean Corpuscular Hemoglobin Concent 34 g/dL (31-37) Red Cell Distribution Width 12.9 % (11.5-14.5) Platelet Count 254 x10^3/uL (140-400) Neutrophils (%) (Auto) 61 % (31-73) Lymphocytes (%) (Auto) 22 % (24-48) Monocytes (%) (Auto) 12 % (0-9) Eosinophils (%) (Auto) 4 % (0-3) Basophils (%) (Auto) 1 % (0-3) Neutrophils # (Auto) 2.6 x10^3uL (1.8-7.7) Lymphocytes # (Auto) 0.9 x10^3/uL (1.0-4.8) Monocytes # (Auto) 0.5 x10^3/uL (0.0-1.1) Eosinophils # (Auto) 0.2 x10^3/uL (0.0-0.7) Basophils # (Auto) 0.0 x10^3/uL (0.0-0.2) Prothrombin Time 12.7 SEC (11.7-14.0) Prothromb Time International Ratio 1.0 (0.8-1.1) Sodium Level 141 mmol/L (136-145) Potassium Level 3.5 mmol/L (3.5-5.1) Chloride Level 104 mmol/L (98-107) Carbon Dioxide Level 27 mmol/L (21-32) Anion Gap 10 (6-14) Blood Urea Nitrogen 9 mg/dL (8-26) Creatinine 1.0 mg/dL (0.7-1.3) Estimated GFR (Cockcroft-Gault) 90.7 Glucose Level 129 mg/dL (70-99) Calcium Level 8.8 mg/dL (8.5-10.1) Total Bilirubin 0.8 mg/dL (0.2-1.0) Direct Bilirubin 0.2 mg/dL (0.0-0.2) Aspartate Amino Transf (AST/SGOT) 23 U/L (15-37) Alanine Aminotransferase (ALT/SGPT) 35 U/L (16-63) Alkaline Phosphatase 82 U/L (46-116) Creatine Kinase 105 U/L (39-308) Creatine Kinase MB (Mass) 1.8 ng/mL (0.0-3.6) Creatine Kinase MB Relative Index 1.7 % (0-4) Troponin I Quantitative 0.040 ng/mL (0.000-0.055) 0.033 ng/mL (0.000-0.055) 0.028 ng/mL (0.000-0.055) LB-Xcz-Z-Type Natriuretic Peptide 393 pg/mL (0-124) Total Protein 8.4 g/dL (6.4-8.2) Albumin 4.2 g/dL (3.4-5.0) Urine Collection Type Void Urine Color Donna Urine Clarity Clear Urine pH 7.0 Urine Specific [place] 1.025 Urine Protein Negative mg/dL (NEG-TRACE) Urine Glucose (UA) Negative mg/dL (NEG) Urine Ketones (Stick) Negative mg/dL (NEG) Urine Blood Negative (NEG) Urine Nitrite Negative (NEG) Urine Bilirubin Small (NEG) Urine Urobilinogen Dipstick 1.0 mg/dL (0.2 mg/dL) Urine Leukocyte Esterase Negative (NEG) Urine RBC 0 /HPF (0-2) Urine WBC 0 /HPF (0-4) Urine Bacteria 0 /HPF (0-FEW) Urine Mucus Marked /LPF Urine Opiates Screen Neg (NEG) Urine Methadone Screen Neg (NEG) Urine Barbiturates Neg (NEG) Urine Phencyclidine Screen Neg (NEG) Urine Amphetamine/Methamphetamine Neg (NEG) Urine Benzodiazepines Screen Neg (NEG) Urine Cocaine Screen Neg (NEG) Urine Cannabinoids Screen Neg (NEG) Urine Ethyl Alcohol Neg (NEG) Test 06/09/17 04:40 White Blood Count 4.7 x10^3/uL (4.0-11.0) Red Blood Count 4.34 x10^6/uL (4.30-5.70) Hemoglobin 14.3 g/dL (13.0-17.5) Hematocrit 41.7 % (39.0-53.0) Mean Corpuscular Volume 96 fL (79-100) Mean Corpuscular Hemoglobin 33 pg (25-35) Mean Corpuscular Hemoglobin Concent 34 g/dL (31-37) Red Cell Distribution Width 13.0 % (11.5-14.5) Platelet Count 225 x10^3/uL (140-400) Neutrophils (%) (Auto) 47 % (31-73) Lymphocytes (%) (Auto) 33 % (24-48) Monocytes (%) (Auto) 15 % (0-9) Eosinophils (%) (Auto) 5 % (0-3) Basophils (%) (Auto) 1 % (0-3) Neutrophils # (Auto) 2.2 x10^3uL (1.8-7.7) Lymphocytes # (Auto) 1.6 x10^3/uL (1.0-4.8) Monocytes # (Auto) 0.7 x10^3/uL (0.0-1.1) Eosinophils # (Auto) 0.2 x10^3/uL (0.0-0.7) Basophils # (Auto) 0.1 x10^3/uL (0.0-0.2) Sodium Level 138 mmol/L (136-145) Potassium Level 3.6 mmol/L (3.5-5.1) Chloride Level 103 mmol/L (98-107) Carbon Dioxide Level 25 mmol/L (21-32) Anion Gap 10 (6-14) Blood Urea Nitrogen 10 mg/dL (8-26) Creatinine 0.8 mg/dL (0.7-1.3) Estimated GFR (Cockcroft-Gault) 117.4 BUN/Creatinine Ratio 13 (6-20) Glucose Level 98 mg/dL (70-99) Calcium Level 8.9 mg/dL (8.5-10.1) Total Bilirubin 1.5 mg/dL (0.2-1.0) Aspartate Amino Transf (AST/SGOT) 18 U/L (15-37) Alanine Aminotransferase (ALT/SGPT) 28 U/L (16-63) Alkaline Phosphatase 67 U/L (46-116) Troponin I Quantitative 0.024 ng/mL (0.000-0.055) Total Protein 6.9 g/dL (6.4-8.2) Albumin 3.6 g/dL (3.4-5.0) Albumin/Globulin Ratio 1.1 (1.0-1.7) Triglycerides Level 66 mg/dL (0-150) Cholesterol Level 148 mg/dL (0-200) LDL Cholesterol, Calculated 70 mg/dL (0-100) VLDL Cholesterol, Calculated 13 mg/dL (0-40) Non-HDL Cholesterol Calculated 83 mg/dL (0-129) HDL Cholesterol 65 mg/dL (40-60) Cholesterol/HDL Ratio 2.3 Vitamin B12 Level 284 pg/mL (247-911) Thyroid Stimulating Hormone (TSH) 1.792 uIU/mL (0.358-3.74) Laboratory Tests Test 06/09/17 04:40 White Blood Count 4.7 x10^3/uL (4.0-11.0) Red Blood Count 4.34 x10^6/uL (4.30-5.70) Hemoglobin 14.3 g/dL (13.0-17.5) Hematocrit 41.7 % (39.0-53.0) Mean Corpuscular Volume 96 fL (79-100) Mean Corpuscular Hemoglobin 33 pg (25-35) Mean Corpuscular Hemoglobin Concent 34 g/dL (31-37) Red Cell Distribution Width 13.0 % (11.5-14.5) Platelet Count 225 x10^3/uL (140-400) Neutrophils (%) (Auto) 47 % (31-73) Lymphocytes (%) (Auto) 33 % (24-48) Monocytes (%) (Auto) 15 % (0-9) Eosinophils (%) (Auto) 5 % (0-3) Basophils (%) (Auto) 1 % (0-3) Neutrophils # (Auto) 2.2 x10^3uL (1.8-7.7) Lymphocytes # (Auto) 1.6 x10^3/uL (1.0-4.8) Monocytes # (Auto) 0.7 x10^3/uL (0.0-1.1) Eosinophils # (Auto) 0.2 x10^3/uL (0.0-0.7) Basophils # (Auto) 0.1 x10^3/uL (0.0-0.2) Sodium Level 138 mmol/L (136-145) Potassium Level 3.6 mmol/L (3.5-5.1) Chloride Level 103 mmol/L (98-107) Carbon Dioxide Level 25 mmol/L (21-32) Anion Gap 10 (6-14) Blood Urea Nitrogen 10 mg/dL (8-26) Creatinine 0.8 mg/dL (0.7-1.3) Estimated GFR (Cockcroft-Gault) 117.4 BUN/Creatinine Ratio 13 (6-20) Glucose Level 98 mg/dL (70-99) Calcium Level 8.9 mg/dL (8.5-10.1) Total Bilirubin 1.5 mg/dL (0.2-1.0) Aspartate Amino Transf (AST/SGOT) 18 U/L (15-37) Alanine Aminotransferase (ALT/SGPT) 28 U/L (16-63) Alkaline Phosphatase 67 U/L (46-116) Troponin I Quantitative 0.024 ng/mL (0.000-0.055) Total Protein 6.9 g/dL (6.4-8.2) Albumin 3.6 g/dL (3.4-5.0) Albumin/Globulin Ratio 1.1 (1.0-1.7) Triglycerides Level 66 mg/dL (0-150) Cholesterol Level 148 mg/dL (0-200) LDL Cholesterol, Calculated 70 mg/dL (0-100) VLDL Cholesterol, Calculated 13 mg/dL (0-40) Non-HDL Cholesterol Calculated 83 mg/dL (0-129) HDL Cholesterol 65 mg/dL (40-60) Cholesterol/HDL Ratio 2.3 Vitamin B12 Level 284 pg/mL (247-911) Thyroid Stimulating Hormone (TSH) 1.792 uIU/mL (0.358-3.74) Assessment/Plan Assessment/Plan This patient is a gentleman with risk factors for coronary artery disease as well as a known history of coronary artery disease and previous stenting. He is having a typical symptoms that may not be angina. In view of his known history as well as the exertional dyspnea that he has been experiencing for some time I would recommend to do a Lexiscan MPI for this patient and then depending on the results will then make further recommendations. Thank you very much for asking me to participate in the care of this patient. RICH JEREZ MD Jun 09, 2017 20:10
[2017-06-09 23:00] VITALS: BP 137/77
--- NOTE | 2017-06-10 01:01 | CONS ---
DATE OF CONSULTATION: 06/09/2017 ATTENDING PHYSICIAN: Dr. Hahn. The patient was seen at the request of Dr. Grullon for rehab evaluation. HISTORY OF PRESENT ILLNESS: This is a 67-year-old male with known hypertension, coronary artery disease status post stent in 2013, admitted through the Emergency Room on 06/08/2017 with shortness of breath. The patient since his myocardial infarction in 2013 stopped smoking. He does not have any primary care physician. He drinks a couple of beers per day. He used to be a heavy drinker in the past. The patient is having difficulty with taking care of his house like mowing the yard secondary to shortness of breath. He also had some chest discomfort. The patient also noted some weakness in his lower extremities, right side more than left side and some time his right foot after walking for a while flaps and he also admits occasional giving up sensation in his lower extremities. He denies any back pain. He denies any significant numbness, tingling sensation in the extremities. He also admits some dizziness when he moves suddenly. The patient denies any trouble with his bowel or bladder control. He is not known allergic to any medication. He lives alone, had few steps to manage. The patient since admission had a chest x-ray which failed to reveal any acute abnormalities. PHYSICAL EXAMINATION: The patient on physical examination today revealed a middle-aged male. He is alert, oriented to time, place, person and circumstance and follows commands appropriately, moves all 4 extremities voluntarily where he had 4+/5 grade muscle strength. Deep tendon reflexes are decreased overall with absent right knee and both ankle jerks. He had equal perception of touch and pinprick sensation bilaterally. No significant tenderness to palpation on cervical or thoracic or lumbar spine area and he had pain free range of motion of his neck and back. Straight leg raising test is negative bilaterally. He had mild crepitus on range of motion of both knee joints without any obvious knee joint effusion. He is independent with bed mobility and transfer and up walking, he can even walk on his tip toes. He is somewhat hesitant about trying to walk on his heels. He had some difficulty walking on a straight line, one foot in front of the other. He had dry scaly skin of his extremities. ASSESSMENT: A middle-aged male with known hypertension and coronary artery disease, admitted with shortness of breath and he presents with peripheral neuropathy, most probably from his alcohol use in the past. No clinical evidence of ongoing cervical, thoracic or lumbar radiculopathy. 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 RECOMMENDATIONS: I have advised him to use a cane if he feels like his balance is not great but he is not interested in using a cane or walker at present time. Dr. Grullon, I appreciate asking me to participate in the care of this interesting patient. I will be glad to follow him with you as needed for his rehabilitation. MAGDALENE CRUZ MD DR: SALOME/marques JOB#: [id number] / [id number]
[2017-06-10 03:00] VITALS: BP 147/87
[2017-06-10 07:00] VITALS: BP 122/73
[2017-06-10] MEDS ORDERED: REGADENOSON 0.4 MG/5 ML DISP.SYRIN. IV ONE ×3 (08:45→09:24)
[2017-06-10] MEDS: LISINOPRIL 20 MG TABLET PO SCH (09:00)
--- NOTE | 2017-06-10 09:26 | PDOC ---
PROGRESS NOTES Subjective Subjective He did not sleep well. Objective Objective Vital Signs Date Time Temp Pulse Resp B/P (MAP) Pulse Ox O2 Delivery O2 Flow Rate FiO2 06/10/17 07:00 98.0 63 20 122/73 (89) 94 Room Air 98.0 Physical Exam Physical Exam He is alert,sitting at edge of bed and comfortable and he remains independent with his mobility and self care. Assessment Assessment Problems Medical Problems: (1) Chest pain Status: Acute (2) Shortness of breath Status: Acute Plan Plan of M[facility] when medically stable. Comment Review of Relevant I have reviewed the following items chetan (where applicable) has been applied. Labs Laboratory Tests Test 06/08/17 14:35 06/08/17 15:35 06/08/17 16:45 06/08/17 19:40 White Blood Count 4.3 x10^3/uL (4.0-11.0) Red Blood Count 4.77 x10^6/uL (4.30-5.70) Hemoglobin 15.6 g/dL (13.0-17.5) Hematocrit 46.0 % (39.0-53.0) Mean Corpuscular Volume 97 fL (79-100) Mean Corpuscular Hemoglobin 33 pg (25-35) Mean Corpuscular Hemoglobin Concent 34 g/dL (31-37) Red Cell Distribution Width 12.9 % (11.5-14.5) Platelet Count 254 x10^3/uL (140-400) Neutrophils (%) (Auto) 61 % (31-73) Lymphocytes (%) (Auto) 22 % (24-48) Monocytes (%) (Auto) 12 % (0-9) Eosinophils (%) (Auto) 4 % (0-3) Basophils (%) (Auto) 1 % (0-3) Neutrophils # (Auto) 2.6 x10^3uL (1.8-7.7) Lymphocytes # (Auto) 0.9 x10^3/uL (1.0-4.8) Monocytes # (Auto) 0.5 x10^3/uL (0.0-1.1) Eosinophils # (Auto) 0.2 x10^3/uL (0.0-0.7) Basophils # (Auto) 0.0 x10^3/uL (0.0-0.2) Prothrombin Time 12.7 SEC (11.7-14.0) Prothromb Time International Ratio 1.0 (0.8-1.1) Sodium Level 141 mmol/L (136-145) Potassium Level 3.5 mmol/L (3.5-5.1) Chloride Level 104 mmol/L (98-107) Carbon Dioxide Level 27 mmol/L (21-32) Anion Gap 10 (6-14) Blood Urea Nitrogen 9 mg/dL (8-26) Creatinine 1.0 mg/dL (0.7-1.3) Estimated GFR (Cockcroft-Gault) 90.7 Glucose Level 129 mg/dL (70-99) Calcium Level 8.8 mg/dL (8.5-10.1) Total Bilirubin 0.8 mg/dL (0.2-1.0) Direct Bilirubin 0.2 mg/dL (0.0-0.2) Aspartate Amino Transf (AST/SGOT) 23 U/L (15-37) Alanine Aminotransferase (ALT/SGPT) 35 U/L (16-63) Alkaline Phosphatase 82 U/L (46-116) Creatine Kinase 105 U/L (39-308) Creatine Kinase MB (Mass) 1.8 ng/mL (0.0-3.6) Creatine Kinase MB Relative Index 1.7 % (0-4) Troponin I Quantitative 0.040 ng/mL (0.000-0.055) 0.033 ng/mL (0.000-0.055) 0.028 ng/mL (0.000-0.055) YF-Min-W-Type Natriuretic Peptide 393 pg/mL (0-124) Total Protein 8.4 g/dL (6.4-8.2) Albumin 4.2 g/dL (3.4-5.0) Urine Collection Type Void Urine Color Donna Urine Clarity Clear Urine pH 7.0 Urine Specific [place] 1.025 Urine Protein Negative mg/dL (NEG-TRACE) Urine Glucose (UA) Negative mg/dL (NEG) Urine Ketones (Stick) Negative mg/dL (NEG) Urine Blood Negative (NEG) Urine Nitrite Negative (NEG) Urine Bilirubin Small (NEG) Urine Urobilinogen Dipstick 1.0 mg/dL (0.2 mg/dL) Urine Leukocyte Esterase Negative (NEG) Urine RBC 0 /HPF (0-2) Urine WBC 0 /HPF (0-4) Urine Bacteria 0 /HPF (0-FEW) Urine Mucus Marked /LPF Urine Opiates Screen Neg (NEG) Urine Methadone Screen Neg (NEG) Urine Barbiturates Neg (NEG) Urine Phencyclidine Screen Neg (NEG) Urine Amphetamine/Methamphetamine Neg (NEG) Urine Benzodiazepines Screen Neg (NEG) Urine Cocaine Screen Neg (NEG) Urine Cannabinoids Screen Neg (NEG) Urine Ethyl Alcohol Neg (NEG) Test 06/09/17 04:40 White Blood Count 4.7 x10^3/uL (4.0-11.0) Red Blood Count 4.34 x10^6/uL (4.30-5.70) Hemoglobin 14.3 g/dL (13.0-17.5) Hematocrit 41.7 % (39.0-53.0) Mean Corpuscular Volume 96 fL (79-100) Mean Corpuscular Hemoglobin 33 pg (25-35) Mean Corpuscular Hemoglobin Concent 34 g/dL (31-37) Red Cell Distribution Width 13.0 % (11.5-14.5) Platelet Count 225 x10^3/uL (140-400) Neutrophils (%) (Auto) 47 % (31-73) Lymphocytes (%) (Auto) 33 % (24-48) Monocytes (%) (Auto) 15 % (0-9) Eosinophils (%) (Auto) 5 % (0-3) Basophils (%) (Auto) 1 % (0-3) Neutrophils # (Auto) 2.2 x10^3uL (1.8-7.7) Lymphocytes # (Auto) 1.6 x10^3/uL (1.0-4.8) Monocytes # (Auto) 0.7 x10^3/uL (0.0-1.1) Eosinophils # (Auto) 0.2 x10^3/uL (0.0-0.7) Basophils # (Auto) 0.1 x10^3/uL (0.0-0.2) Sodium Level 138 mmol/L (136-145) Potassium Level 3.6 mmol/L (3.5-5.1) Chloride Level 103 mmol/L (98-107) Carbon Dioxide Level 25 mmol/L (21-32) Anion Gap 10 (6-14) Blood Urea Nitrogen 10 mg/dL (8-26) Creatinine 0.8 mg/dL (0.7-1.3) Estimated GFR (Cockcroft-Gault) 117.4 BUN/Creatinine Ratio 13 (6-20) Glucose Level 98 mg/dL (70-99) Calcium Level 8.9 mg/dL (8.5-10.1) Total Bilirubin 1.5 mg/dL (0.2-1.0) Aspartate Amino Transf (AST/SGOT) 18 U/L (15-37) Alanine Aminotransferase (ALT/SGPT) 28 U/L (16-63) Alkaline Phosphatase 67 U/L (46-116) Troponin I Quantitative 0.024 ng/mL (0.000-0.055) Total Protein 6.9 g/dL (6.4-8.2) Albumin 3.6 g/dL (3.4-5.0) Albumin/Globulin Ratio 1.1 (1.0-1.7) Triglycerides Level 66 mg/dL (0-150) Cholesterol Level 148 mg/dL (0-200) LDL Cholesterol, Calculated 70 mg/dL (0-100) VLDL Cholesterol, Calculated 13 mg/dL (0-40) Non-HDL Cholesterol Calculated 83 mg/dL (0-129) HDL Cholesterol 65 mg/dL (40-60) Cholesterol/HDL Ratio 2.3 Vitamin B12 Level 284 pg/mL (247-911) Thyroid Stimulating Hormone (TSH) 1.792 uIU/mL (0.358-3.74) Medications Current Medications Ondansetron HCl (Zofran) 4 mg PRN Q8HRS PRN IV NAUSEA/VOMITING; Start 06/08/17 at 16:45; Stop 06/09/17 at 14:42; Status DC Morphine Sulfate 2 mg PRN Q2HR PRN IV PAIN; Start 06/08/17 at 16:45; Stop 06/09 at 14:42; Status DC Acetaminophen (Tylenol) 650 mg PRN Q6HRS PRN PO FEVER; Start 06/08/17 at 17:45 Ondansetron HCl (Zofran) 4 mg PRN Q6HRS PRN IV NAUSEA/VOMITING; Start 06/08/17 at 17:45 Morphine Sulfate 2 mg PRN Q2HR PRN IV PAIN; Start 06/08/17 at 17:45 Tramadol HCl (Ultram) 50 mg PRN Q6HRS PRN PO PAIN MILD TO MOD; Start 06/08/17 at 17:45 Hydralazine HCl (Apresoline) 10 mg PRN Q4HRS PRN IVP ELEVATED BP, SEE COMMENTS ; Start 06/08/17 at 17:45 Docusate Sodium (Colace) 100 mg PRN DAILY PRN PO CONSTIPATION; Start 06/08/17 at 17:45 Albuterol Sulfate (Ventolin Neb Soln) 2.5 mg PRN Q4HRS PRN NEB SHORTNESS OF BREATH; Start 06/08/17 at 17:45 Enoxaparin Sodium (Lovenox 40mg Syringe) 40 mg Q24H SQ Last administered on 19:41; Start 06/08/17 at 18:00 Folic Acid (Folic Acid) 1 mg DAILY PO Last administered on 06/09/17 13:46; Start 06/08/17 at 18:00 Thiamine Mononitrate (Vitamin B-1) 100 mg DAILY PO Last administered on 13:46; Start 06/08/17 at 18:00 Lorazepam (Ativan) 2 mg PRN Q4HRS PRN IV ANXIETY / AGITATION Last administered on 06/09/17 00:49; Start 06/08/17 at 17:45 Lisinopril (Prinivil) 40 mg DAILY PO ; Start 06/08/17 at 18:00; Stop 06/08/17 at 18:45; Status DC Lisinopril (Prinivil) 20 mg DAILY PO ; Start 06/09/17 at 09:00 Zolpidem Tartrate (Ambien) 5 mg PRN QHS PRN PO INSOMNIA Last administered on 22:43; Start 06/08/17 at 20:45 Vitamin B Complex (Folbic Tablet) 1 tab DAILY PO Last administered on 13:46; Start 06/09/17 at 10:30 Cyanocobalamin (Vitamin B-12) 1,000 mcg 1X ONCE IM Last administered on 13:46; Start 06/09/17 at 10:45; Stop 06/09/17 at 10:46; Status DC Regadenoson (Lexiscan) 0.4 mg 1X ONCE IV ; Start 06/10/17 at 08:45; Stop at 08:46; Status DC Active Scripts Active Reported [none] Vitals/I & O Vital Sign - Last 24 Hours 06/09/17 06/09/17 06/09/17 06/09/17 11:27 15:18 19:00 19:49 Temp 98.1 97.9 98.1 98.1 97.9 98.1 Pulse 66 71 73 Resp 18 18 20 B/P (MAP) 156/92 (113) 128/69 (88) 135/81 (99) Pulse Ox 97 97 96 O2 Delivery Room Air Room Air Room Air Room Air 06/09/17 06/10/17 06/10/17 23:00 03:00 07:00 Temp 97.8 98.4 98.0 97.8 98.4 98.0 Pulse 65 71 63 Resp 20 20 20 B/P (MAP) 137/77 (97) 147/87 (107) 122/73 (89) Pulse Ox 96 97 94 O2 Delivery Room Air Room Air Room Air MAGDALENE CRUZ MD Jun 10, 2017 09:26
[2017-06-10 11:00] VITALS: BP 129/95
[2017-06-10] MEDS: THIAMINE 100 MG TABLET. PO SCH (11:46)
[2017-06-10] MEDS: FOLIC ACID 1 MG TABLET. PO SCH (11:46)
[2017-06-10] MEDS: VITAMIN B12,B9,B6 COMPLEX 1 TABLET. PO SCH (11:46)
[2017-06-10] MEDS ORDERED: CYAN1TAB19 PO (11:54)
[2017-06-10] MEDS ORDERED: TRAZ50TA15 PO (11:54)
[2017-06-10 15:20] VITALS: BP 150/78
--- NOTE | 2017-06-10 15:36 | PDOC ---
PROGRESS NOTES Subjective Subjective This patient's MPI shows a large defect over the anterior wall and the global left ventricular ejection fraction was estimated to be at 40%. He is not having any chest pains at this time. Objective Objective Vital Signs Date Time Temp Pulse Resp B/P (MAP) Pulse Ox O2 Delivery O2 Flow Rate FiO2 06/10/17 11:00 98.7 71 18 129/95 (106) 95 Room Air 98.7 Physical Exam Physical Exam Significant changes in cardiac exam Assessment Assessment This patient appears to have an ischemic cardiomyopathy. In view of the results of the MPI with the anterior wall defect I would recommend to do a heart catheterization on the patient. This was discussed with the patient and he agrees with this approach therefore we have scheduled a heart catheterization to be done tomorrow. Problems Medical Problems: (1) Chest pain Status: Acute (2) Shortness of breath Status: Acute Comment Review of Relevant I have reviewed the following items chetan (where applicable) has been applied. Labs Laboratory Tests Test 06/08/17 15:35 06/08/17 16:45 06/08/17 19:40 06/09/17 04:40 Urine Collection Type Void Urine Color Donna Urine Clarity Clear Urine pH 7.0 Urine Specific Mott 1.025 Urine Protein Negative mg/dL (NEG-TRACE) Urine Glucose (UA) Negative mg/dL (NEG) Urine Ketones (Stick) Negative mg/dL (NEG) Urine Blood Negative (NEG) Urine Nitrite Negative (NEG) Urine Bilirubin Small (NEG) Urine Urobilinogen Dipstick 1.0 mg/dL (0.2 mg/dL) Urine Leukocyte Esterase Negative (NEG) Urine RBC 0 /HPF (0-2) Urine WBC 0 /HPF (0-4) Urine Bacteria 0 /HPF (0-FEW) Urine Mucus Marked /LPF Urine Opiates Screen Neg (NEG) Urine Methadone Screen Neg (NEG) Urine Barbiturates Neg (NEG) Urine Phencyclidine Screen Neg (NEG) Urine Amphetamine/Methamphetamine Neg (NEG) Urine Benzodiazepines Screen Neg (NEG) Urine Cocaine Screen Neg (NEG) Urine Cannabinoids Screen Neg (NEG) Urine Ethyl Alcohol Neg (NEG) Troponin I Quantitative 0.033 ng/mL (0.000-0.055) 0.028 ng/mL (0.000-0.055) 0.024 ng/mL (0.000-0.055) White Blood Count 4.7 x10^3/uL (4.0-11.0) Red Blood Count 4.34 x10^6/uL (4.30-5.70) Hemoglobin 14.3 g/dL (13.0-17.5) Hematocrit 41.7 % (39.0-53.0) Mean Corpuscular Volume 96 fL (79-100) Mean Corpuscular Hemoglobin 33 pg (25-35) Mean Corpuscular Hemoglobin Concent 34 g/dL (31-37) Red Cell Distribution Width 13.0 % (11.5-14.5) Platelet Count 225 x10^3/uL (140-400) Neutrophils (%) (Auto) 47 % (31-73) Lymphocytes (%) (Auto) 33 % (24-48) Monocytes (%) (Auto) 15 % (0-9) Eosinophils (%) (Auto) 5 % (0-3) Basophils (%) (Auto) 1 % (0-3) Neutrophils # (Auto) 2.2 x10^3uL (1.8-7.7) Lymphocytes # (Auto) 1.6 x10^3/uL (1.0-4.8) Monocytes # (Auto) 0.7 x10^3/uL (0.0-1.1) Eosinophils # (Auto) 0.2 x10^3/uL (0.0-0.7) Basophils # (Auto) 0.1 x10^3/uL (0.0-0.2) Sodium Level 138 mmol/L (136-145) Potassium Level 3.6 mmol/L (3.5-5.1) Chloride Level 103 mmol/L (98-107) Carbon Dioxide Level 25 mmol/L (21-32) Anion Gap 10 (6-14) Blood Urea Nitrogen 10 mg/dL (8-26) Creatinine 0.8 mg/dL (0.7-1.3) Estimated GFR (Cockcroft-Gault) 117.4 BUN/Creatinine Ratio 13 (6-20) Glucose Level 98 mg/dL (70-99) Calcium Level 8.9 mg/dL (8.5-10.1) Total Bilirubin 1.5 mg/dL (0.2-1.0) Aspartate Amino Transf (AST/SGOT) 18 U/L (15-37) Alanine Aminotransferase (ALT/SGPT) 28 U/L (16-63) Alkaline Phosphatase 67 U/L (46-116) Total Protein 6.9 g/dL (6.4-8.2) Albumin 3.6 g/dL (3.4-5.0) Albumin/Globulin Ratio 1.1 (1.0-1.7) Triglycerides Level 66 mg/dL (0-150) Cholesterol Level 148 mg/dL (0-200) LDL Cholesterol, Calculated 70 mg/dL (0-100) VLDL Cholesterol, Calculated 13 mg/dL (0-40) Non-HDL Cholesterol Calculated 83 mg/dL (0-129) HDL Cholesterol 65 mg/dL (40-60) Cholesterol/HDL Ratio 2.3 Vitamin B12 Level 284 pg/mL (247-911) Thyroid Stimulating Hormone (TSH) 1.792 uIU/mL (0.358-3.74) Medications Current Medications Ondansetron HCl (Zofran) 4 mg PRN Q8HRS PRN IV NAUSEA/VOMITING; Start 06/08/17 at 16:45; Stop 06/09/17 at 14:42; Status DC Morphine Sulfate 2 mg PRN Q2HR PRN IV PAIN; Start 06/08/17 at 16:45; Stop 06/09 at 14:42; Status DC Acetaminophen (Tylenol) 650 mg PRN Q6HRS PRN PO FEVER; Start 06/08/17 at 17:45 Ondansetron HCl (Zofran) 4 mg PRN Q6HRS PRN IV NAUSEA/VOMITING; Start 06/08/17 at 17:45 Morphine Sulfate 2 mg PRN Q2HR PRN IV PAIN; Start 06/08/17 at 17:45 Tramadol HCl (Ultram) 50 mg PRN Q6HRS PRN PO PAIN MILD TO MOD; Start 06/08/17 at 17:45 Hydralazine HCl (Apresoline) 10 mg PRN Q4HRS PRN IVP ELEVATED BP, SEE COMMENTS ; Start 06/08/17 at 17:45 Docusate Sodium (Colace) 100 mg PRN DAILY PRN PO CONSTIPATION; Start 06/08/17 at 17:45 Albuterol Sulfate (Ventolin Neb Soln) 2.5 mg PRN Q4HRS PRN NEB SHORTNESS OF BREATH; Start 06/08/17 at 17:45 Enoxaparin Sodium (Lovenox 40mg Syringe) 40 mg Q24H SQ Last administered on 19:41; Start 06/08/17 at 18:00 Folic Acid (Folic Acid) 1 mg DAILY PO Last administered on 06/10/17 11:46; Start 06/08/17 at 18:00 Thiamine Mononitrate (Vitamin B-1) 100 mg DAILY PO Last administered on 11:46; Start 06/08/17 at 18:00 Lorazepam (Ativan) 2 mg PRN Q4HRS PRN IV ANXIETY / AGITATION Last administered on 06/09/17 00:49; Start 06/08/17 at 17:45 Lisinopril (Prinivil) 40 mg DAILY PO ; Start 06/08/17 at 18:00; Stop 06/08/17 at 18:45; Status DC Lisinopril (Prinivil) 20 mg DAILY PO ; Start 06/09/17 at 09:00 Zolpidem Tartrate (Ambien) 5 mg PRN QHS PRN PO INSOMNIA Last administered on 22:43; Start 06/08/17 at 20:45 Vitamin B Complex (Folbic Tablet) 1 tab DAILY PO Last administered on 11:46; Start 06/09/17 at 10:30 Cyanocobalamin (Vitamin B-12) 1,000 mcg 1X ONCE IM Last administered on 13:46; Start 06/09/17 at 10:45; Stop 06/09/17 at 10:46; Status DC Regadenoson (Lexiscan) 0.4 mg 1X ONCE IV ; Start 06/10/17 at 08:45; Stop at 08:46; Status DC Regadenoson (Lexiscan) 0.4 mg STK-MED ONCE IV ; Start 06/10/17 at 09:24; Stop at 09:25; Status DC Active Scripts Active Reported [none] Vitals/I & O Vital Sign - Last 24 Hours 06/09/17 06/09/17 06/09/17 06/10/17 19:00 19:49 23:00 03:00 Temp 98.1 97.8 98.4 98.1 97.8 98.4 Pulse 73 65 71 Resp 20 20 20 B/P (MAP) 135/81 (99) 137/77 (97) 147/87 (107) Pulse Ox 96 96 97 O2 Delivery Room Air Room Air Room Air Room Air 06/10/17 06/10/17 06/10/17 06/10/17 07:00 08:05 09:00 11:00 Temp 98.0 98.7 98.0 98.7 Pulse 63 71 71 Resp 20 18 B/P (MAP) 122/73 (89) 129/95 129/95 (106) Pulse Ox 94 95 O2 Delivery Room Air Room Air Room Air RICH JEREZ MD Jun 10, 2017 15:36
--- NOTE | 2017-06-10 15:37 | PDOC ---
MODERATE SEDATION ASSESSMENT RISKS/ALTERNATIVES Risks/Alternatives Risks and alternatives of this type of sedation and procedure discussed with: RISK/ALTERNATIVES: Patient H & P ON CHART H & P H & P on chart and reviewed for co-morbid conditions and appropriate labs. H&P ON CHART: Yes STATUS PREG STATUS ASSESSED: Yes MEDS/ALLERGIES REVIEWED Meds/Allergies Reviewed Medications and Allergies including time and route of recently administered narcotics and sedatives. MEDS/ALLERGIES REVIEWED: Yes ASA RATING ASA RATING: II AIRWAY ASSESSMENT Airway Assessment Airway patency, oral function limitations, presence of caps, crowns, dentures, partials, and ability to extend neck assessed. AIRWAY ASSESSMENT: Yes MALLAMPATI SCORE MALLAMPATI SCORE: II PRE-SEDATION ASSESSMENT PRE-SEDATION ASSESSMENT: Yes RICH JEREZ MD Jun 10, 2017 15:37
[2017-06-10] MEDS: ENOXAPARIN 40 MG/0.4 ML SYRINGE. SQ SCH (17:45)
[2017-06-10 19:12] VITALS: BP 142/86
[2017-06-10 22:16] VITALS: BP 156/82
[2017-06-11] VITALS (14 sets, daily range): BP systolic 131–165; BP diastolic 68–93
[2017-06-11] MEDS: FOLIC ACID 1 MG TABLET. PO SCH (08:39)
[2017-06-11] MEDS: THIAMINE 100 MG TABLET. PO SCH (08:39)
[2017-06-11] MEDS: VITAMIN B12,B9,B6 COMPLEX 1 TABLET. PO SCH (08:39)
[2017-06-11] MEDS: LISINOPRIL 20 MG TABLET PO SCH (08:45)
--- NOTE | 2017-06-11 09:51 | PDOC ---
PROGRESS NOTES Chief Complaint Chief Complaint LATE ENTRY, pt seen 06/10, had planned to DC, but stress test pos, stay for cath angina, new chronic combined systolic and diastolic CHF,, est EF 40% on MPI H/O CAD 2013 with 1 stent at obtuse marginal branch HTN poor control, noncompliant with emds alcohol abuse d/o, prior tobaccoism leg weakness, unsteady gait and peripheral neuropathy History of Present Illness History of Present Illness Dr. Lowry to cath, MPI showed a large anterior wall defect, per Dr. Lowry note Dr. Hardwick followign for leg weakness, may be peripheral, htn better control, Vitals Vitals Vital Signs Date Time Temp Pulse Resp B/P (MAP) Pulse Ox O2 Delivery O2 Flow Rate FiO2 06/11/17 07:00 97.5 63 18 145/68 (93) 99 Room Air 97.5 Physical Exam General: Alert, Oriented X3, Cooperative Heart: Regular rate, Normal S1, Normal S2 Lungs: Clear Abdomen: Normal bowel sounds, Soft Extremities: No edema, Normal pulses Skin: No rashes, No breakdown Assessment and Plan Assessmemt and Plan Problems Medical Problems: (1) Chest pain Status: Acute (2) Shortness of breath Status: Acute Problems: Comment Review of Relevant I have reviewed the following items chetan (where applicable) has been applied. Medications Current Medications Ondansetron HCl (Zofran) 4 mg PRN Q8HRS PRN IV NAUSEA/VOMITING; Start 06/08/17 at 16:45; Stop 06/09/17 at 14:42; Status DC Morphine Sulfate 2 mg PRN Q2HR PRN IV PAIN; Start 06/08/17 at 16:45; Stop 06/09 at 14:42; Status DC Acetaminophen (Tylenol) 650 mg PRN Q6HRS PRN PO FEVER; Start 06/08/17 at 17:45 Ondansetron HCl (Zofran) 4 mg PRN Q6HRS PRN IV NAUSEA/VOMITING; Start 06/08/17 at 17:45 Morphine Sulfate 2 mg PRN Q2HR PRN IV PAIN; Start 06/08/17 at 17:45 Tramadol HCl (Ultram) 50 mg PRN Q6HRS PRN PO PAIN MILD TO MOD; Start 06/08/17 at 17:45 Hydralazine HCl (Apresoline) 10 mg PRN Q4HRS PRN IVP ELEVATED BP, SEE COMMENTS ; Start 06/08/17 at 17:45 Docusate Sodium (Colace) 100 mg PRN DAILY PRN PO CONSTIPATION; Start 06/08/17 at 17:45 Albuterol Sulfate (Ventolin Neb Soln) 2.5 mg PRN Q4HRS PRN NEB SHORTNESS OF BREATH; Start 06/08/17 at 17:45 Enoxaparin Sodium (Lovenox 40mg Syringe) 40 mg Q24H SQ Last administered on 19:41; Start 06/08/17 at 18:00 Folic Acid (Folic Acid) 1 mg DAILY PO Last administered on 06/11/17 08:39; Start 06/08/17 at 18:00 Thiamine Mononitrate (Vitamin B-1) 100 mg DAILY PO Last administered on 08:39; Start 06/08/17 at 18:00 Lorazepam (Ativan) 2 mg PRN Q4HRS PRN IV ANXIETY / AGITATION Last administered on 06/09/17 00:49; Start 06/08/17 at 17:45 Lisinopril (Prinivil) 40 mg DAILY PO ; Start 06/08/17 at 18:00; Stop 06/08/17 at 18:45; Status DC Lisinopril (Prinivil) 20 mg DAILY PO ; Start 06/09/17 at 09:00 Zolpidem Tartrate (Ambien) 5 mg PRN QHS PRN PO INSOMNIA Last administered on 22:43; Start 06/08/17 at 20:45 Vitamin B Complex (Folbic Tablet) 1 tab DAILY PO Last administered on 08:39; Start 06/09/17 at 10:30 Cyanocobalamin (Vitamin B-12) 1,000 mcg 1X ONCE IM Last administered on 13:46; Start 06/09/17 at 10:45; Stop 06/09/17 at 10:46; Status DC Regadenoson (Lexiscan) 0.4 mg 1X ONCE IV ; Start 06/10/17 at 08:45; Stop at 08:46; Status DC Regadenoson (Lexiscan) 0.4 mg STK-MED ONCE IV ; Start 06/10/17 at 09:24; Stop at 09:25; Status DC Active Scripts Active Reported [none] Vitals/I & O Vital Sign - Last 24 Hours 06/10/17 06/10/17 06/10/17 06/10/17 11:00 15:20 15:53 19:12 Temp 98.7 98.0 97.5 98.7 98.0 97.5 Pulse 71 65 69 Resp 18 16 16 B/P (MAP) 129/95 (106) 150/78 (102) 142/86 (104) Pulse Ox 95 99 98 O2 Delivery Room Air Room Air Room Air Room Air 06/10/17 06/10/17 06/11/17 06/11/17 20:00 22:16 02:54 07:00 Temp 97.9 98.3 97.5 97.9 98.3 97.5 Pulse 68 65 63 Resp 16 16 18 B/P (MAP) 156/82 (106) 131/70 (90) 145/68 (93) Pulse Ox 97 100 99 O2 Delivery Room Air Room Air Room Air Room Air RAISSA VENEGAS MD Jun 11, 2017 09:51
--- NOTE | 2017-06-11 10:51 | PDOC ---
PROGRESS NOTES Chief Complaint Chief Complaint SOB Chest pain w/ exertion PMH: HTN noncompliant CAD Cardiac stent placed 5 years ago Tobacco use History of Present Illness History of Present Illness Pt was laying in bed and conversant. His daughter was also on the phone at the time of the visit. Daughter was concerned about pt and plan of care including cath today was discussed with her along with reassurance about the procedure. Pt refused Lisinopril per RN. Discussed plan of care with RN. PT will go to cath today for stenting. Pt expressed concern over being believed that he no longer smokes since his stent was placed 5 years ago. 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 Labs: Troponins .024 CXR: negative EKG - left atrial abnormality Vitals Vitals Vital Signs Date Time Temp Pulse Resp B/P (MAP) Pulse Ox O2 Delivery O2 Flow Rate FiO2 06/11/17 07:00 97.5 63 18 145/68 (93) 99 Room Air 97.5 Physical Exam General: Alert, Oriented X3, Cooperative, No acute distress Heart: Regular rate, Normal S1, Normal S2 Lungs: Clear Abdomen: Normal bowel sounds, Soft, No masses Extremities: No cyanosis, No edema Skin: No rashes, No breakdown, No significant lesion Review of Systems Review of Systems Pt complains of fatigue Pt complains of hunger Assessment and Plan Assessmemt and Plan Problems Medical Problems: (1) Chest pain Status: Acute (2) Shortness of breath Status: Acute SOB Chest pain w/ exertion PMH: HTN noncompliant CAD Cardiac stent placed 5 years ago Tobacco use Plan: Cont. cardiac monitoring Cont. 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 Medications Current Medications Ondansetron HCl (Zofran) 4 mg PRN Q8HRS PRN IV NAUSEA/VOMITING; Start 06/08/17 at 16:45; Stop 06/09/17 at 14:42; Status DC Morphine Sulfate 2 mg PRN Q2HR PRN IV PAIN; Start 06/08/17 at 16:45; Stop 06/09 at 14:42; Status DC Acetaminophen (Tylenol) 650 mg PRN Q6HRS PRN PO FEVER; Start 06/08/17 at 17:45 Ondansetron HCl (Zofran) 4 mg PRN Q6HRS PRN IV NAUSEA/VOMITING; Start 06/08/17 at 17:45 Morphine Sulfate 2 mg PRN Q2HR PRN IV PAIN; Start 06/08/17 at 17:45 Tramadol HCl (Ultram) 50 mg PRN Q6HRS PRN PO PAIN MILD TO MOD; Start 06/08/17 at 17:45 Hydralazine HCl (Apresoline) 10 mg PRN Q4HRS PRN IVP ELEVATED BP, SEE COMMENTS ; Start 06/08/17 at 17:45 Docusate Sodium (Colace) 100 mg PRN DAILY PRN PO CONSTIPATION; Start 06/08/17 at 17:45 Albuterol Sulfate (Ventolin Neb Soln) 2.5 mg PRN Q4HRS PRN NEB SHORTNESS OF BREATH; Start 06/08/17 at 17:45 Enoxaparin Sodium (Lovenox 40mg Syringe) 40 mg Q24H SQ Last administered on 19:41; Start 06/08/17 at 18:00 Folic Acid (Folic Acid) 1 mg DAILY PO Last administered on 06/11/17 08:39; Start 06/08/17 at 18:00 Thiamine Mononitrate (Vitamin B-1) 100 mg DAILY PO Last administered on 08:39; Start 06/08/17 at 18:00 Lorazepam (Ativan) 2 mg PRN Q4HRS PRN IV ANXIETY / AGITATION Last administered on 06/09/17 00:49; Start 06/08/17 at 17:45 Lisinopril (Prinivil) 40 mg DAILY PO ; Start 06/08/17 at 18:00; Stop 06/08/17 at 18:45; Status DC Lisinopril (Prinivil) 20 mg DAILY PO ; Start 06/09/17 at 09:00 Zolpidem Tartrate (Ambien) 5 mg PRN QHS PRN PO INSOMNIA Last administered on 22:43; Start 06/08/17 at 20:45 Vitamin B Complex (Folbic Tablet) 1 tab DAILY PO Last administered on 08:39; Start 06/09/17 at 10:30 Cyanocobalamin (Vitamin B-12) 1,000 mcg 1X ONCE IM Last administered on t 13:46; Start 06/09/17 at 10:45; Stop 06/09/17 at 10:46; Status DC Regadenoson (Lexiscan) 0.4 mg 1X ONCE IV ; Start 06/10/17 at 08:45; Stop at 08:46; Status DC Regadenoson (Lexiscan) 0.4 mg STK-MED ONCE IV ; Start 06/10/17 at 09:24; Stop at 09:25; Status DC Regadenoson (Lexiscan) 0.4 mg STK-MED ONCE IV ; Start 06/10/17 at 09:24; Stop at 10:04; Status DC Active Scripts Active Reported [none] Vitals/I & O Vital Sign - Last 24 Hours 06/10/17 06/10/17 06/10/17 06/10/17 11:00 15:20 15:53 19:12 Temp 98.7 98.0 97.5 98.7 98.0 97.5 Pulse 71 65 69 Resp 18 16 16 B/P (MAP) 129/95 (106) 150/78 (102) 142/86 (104) Pulse Ox 95 99 98 O2 Delivery Room Air Room Air Room Air Room Air 06/10/17 06/10/17 06/11/17 06/11/17 20:00 22:16 02:54 07:00 Temp 97.9 98.3 97.5 97.9 98.3 97.5 Pulse 68 65 63 Resp 16 16 18 B/P (MAP) 156/82 (106) 131/70 (90) 145/68 (93) Pulse Ox 97 100 99 O2 Delivery Room Air Room Air Room Air Room Air JACQUELINE LERNER III DO Jun 11, 2017 10:51
[2017-06-11] MEDS ORDERED: IOHEXOL 300 MG/ML 100ML VIAL. ONE (12:54)
[2017-06-11] MEDS ORDERED: LIDOCAINE 2% 20 ML VIAL. ONE (12:55)
[2017-06-11] MEDS ORDERED: fentaNYL PF VIAL 100 MCG/2 ML VIAL ONE (13:23)
[2017-06-11] MEDS ORDERED: MIDAZOLAM HCL/PF 2 MG/2 ML VIAL. ONE (13:23)
[2017-06-11] MEDS ORDERED: MIDAZOLAM HCL/PF 2 MG/2 ML VIAL. IV ONE (13:45)
[2017-06-11] MEDS ORDERED: LIDOCAINE 2% 20 ML VIAL. IJ ONE (13:45)
[2017-06-11] MEDS ORDERED: IOHEXOL 300 MG/ML 100ML VIAL. IART ONE (13:45)
[2017-06-11] MEDS ORDERED: fentaNYL PF VIAL 100 MCG/2 ML VIAL IV ONE (13:45)
--- NOTE | 2017-06-11 14:46 | CARD ---
APPROVED REPORT Procedure(s) performed: Moderate Sedation : 28 min HISTORY previous [place]: coronary artery disease, tobacco history() : The patient is a former smoker, previous PC I (The PCI date was ), hypertension. INDICATION The indication(s) include : positive stress test, chest pain. CASE TECHNIQUE The patient was brought electively into the cardiac catheterization lab. A timeout was performed conf irming the patient's name, date of , procedure, and site of procedure. All necessary parties wer e wearing the appropriate personal protective equipment and radiation monitoring devices. After expla ining the risks and benefits of the procedure, informed consent was obtained.(See nursing notes for m edications administered). The right groin was sterilely prepped and draped. The right femoral groin w as infiltrated with 2% Lidocaine subcutaneous anesthesia. During this case, Fluoroscopy and low osmol ar contrast were used for imaging. A sheath was inserted into the right femoral artery without diffic ulty. Coronary angiography was performed using coronary diagnostic catheters. The left coronary syste m was accessed and visualized with a Diagnostic catheter. The right coronary system was accessed and visualized with a Diagnostic catheter. The left ventricle was accessed and visualized with a Diagnost ic catheter. Left ventricular/Aortic Valve gradient assessed on pullback. Left ventriculogram was per formed in ZHOU and BAHAMIAN projection. Pre-demployment femoral angiogram was performed . Closure device wa s deployed with a Angioseal without any complications. The patient tolerated the procedure well and t here were no complications associated with the procedure. Coronary Angiography The patient's coronary anatomy is left dominant. The left main coronary artery is a large size vessel free of disease. The left main bifurcates to the left anterior descending and circumflex. The left anterior descending artery is a large size vessel with stenosis. There is a 70% stenosis in the proximal segment. at the take off of D1 The first diagonal branch is a medium size vessel with st enosis. There is a 100% stenosis in the ostial segment. The second diagonal branch is a small size ve ssel free of disease. The third diagonal branch is a small size vessel free of disease. The circumflex artery is a large size vessel with intimal irregularities and without significant sten osis. There is a 50% stenosis in the distal segment. before the PDA The first obtuse marginal branch is a large size vessel with stenosis. There is a 95% stenosis in the proximal segment. and 99% distal to the stent The second obtuse marginal branch is a medium size vessel free of disease. The third ob tuse marginal branch is a medium size vessel free of disease. The left posterior descending artery is a medium size vessel free of disease. The right coronary artery is a small size vessel with stenosis. There is a 100% stenosis in the proxi mal segment. distal to the Conus branch Left Ventriculography The left ventricle is normal in size with decreased contractility. The left ventricular ejection frac tion is estimated to be 40%. The left ventricular end diastolic pressure is 18 mmHg. There was no gra dient across the aortic valve upon pullback. 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 Conclusion This pt has CAD with stenosis above and below the stent in the OM and also disease of the LAD and an occludded small RCA with bridging collaterals. In addition to this the pt has a wide mouth LV aneurism. The overall LV EF is decreased in part due to the aneurism. This pt may benefit from an aneurismectomy and CABGS. Will consult CV surgery.
--- NOTE | 2017-06-11 16:23 | PDOC2 ---
CONSULT Date of Consult Date of Consult DATE: 06/11/17 TIME: 16:17 Referring Physician Referring Physician: Coronary artery disease, possible LV aneurysm Identification/Chief Complaint Chief Complaint Shortness of breath Problems: Source Source: Chart review, Patient History of Present Illness Reason for Visit: The patient is a 67-year-old male with a history of ischemic heart disease status post PCI to OM1 in 2012, who presents with increasing shortness of breath. The patient does not be taking any medications since his stent placement. He denies chest pain, palpitations, orthopnea, ankle swelling. He had nonspecific EKG changes and troponin was negative. He went on to have a coronary angiogram today which demonstrated a proximal tight LAD stenosis, in- stent stenosis of the OM1, with a very small vessel distal to the stent, and a puny nondominant RCA system. The LV gram showed a possible outpouching of the LV cavity although it does appear that there is normal muscle around this outpouching. The outpouching was present on his last LV gram in 2012. No definitive LV aneurysm was identified on echo. I was consulted to consider the patient for surgical coronary revascularization and treatment of this possible LV aneurysm. Past Medical History Cardiovascular: CAD, HTN Past Surgical History Past Surgical History: No pertinent history Family History Family History: Hypertension Social History Quit ALCOHOL: heavy Drugs: None Current Problem List Problem List Problems Medical Problems: (1) Chest pain Status: Acute (2) Shortness of breath Status: Acute Current Medications Current Medications Current Medications Ondansetron HCl (Zofran) 4 mg PRN Q8HRS PRN IV NAUSEA/VOMITING; Start 06/08/17 at 16:45; Stop 06/09/17 at 14:42; Status DC Morphine Sulfate 2 mg PRN Q2HR PRN IV PAIN; Start 06/08/17 at 16:45; Stop 06/09 at 14:42; Status DC Acetaminophen (Tylenol) 650 mg PRN Q6HRS PRN PO FEVER; Start 06/08/17 at 17:45 Ondansetron HCl (Zofran) 4 mg PRN Q6HRS PRN IV NAUSEA/VOMITING; Start 06/08/17 at 17:45 Morphine Sulfate 2 mg PRN Q2HR PRN IV PAIN; Start 06/08/17 at 17:45 Tramadol HCl (Ultram) 50 mg PRN Q6HRS PRN PO PAIN MILD TO MOD; Start 06/08/17 at 17:45 Hydralazine HCl (Apresoline) 10 mg PRN Q4HRS PRN IVP ELEVATED BP, SEE COMMENTS ; Start 06/08/17 at 17:45 Docusate Sodium (Colace) 100 mg PRN DAILY PRN PO CONSTIPATION; Start 06/08/17 at 17:45 Albuterol Sulfate (Ventolin Neb Soln) 2.5 mg PRN Q4HRS PRN NEB SHORTNESS OF BREATH; Start 06/08/17 at 17:45 Enoxaparin Sodium (Lovenox 40mg Syringe) 40 mg Q24H SQ Last administered on 19:41; Start 06/08/17 at 18:00 Folic Acid (Folic Acid) 1 mg DAILY PO Last administered on 06/11/17 08:39; Start 06/08/17 at 18:00 Thiamine Mononitrate (Vitamin B-1) 100 mg DAILY PO Last administered on 08:39; Start 06/08/17 at 18:00 Lorazepam (Ativan) 2 mg PRN Q4HRS PRN IV ANXIETY / AGITATION Last administered on 06/09/17 00:49; Start 06/08/17 at 17:45 Lisinopril (Prinivil) 40 mg DAILY PO ; Start 06/08/17 at 18:00; Stop 06/08/17 at 18:45; Status DC Lisinopril (Prinivil) 20 mg DAILY PO ; Start 06/09/17 at 09:00 Zolpidem Tartrate (Ambien) 5 mg PRN QHS PRN PO INSOMNIA Last administered on 22:43; Start 06/08/17 at 20:45 Vitamin B Complex (Folbic Tablet) 1 tab DAILY PO Last administered on 08:39; Start 06/09/17 at 10:30 Cyanocobalamin (Vitamin B-12) 1,000 mcg 1X ONCE IM Last administered on 13:46; Start 06/09/17 at 10:45; Stop 06/09/17 at 10:46; Status DC Regadenoson (Lexiscan) 0.4 mg 1X ONCE IV ; Start 06/10/17 at 08:45; Stop at 08:46; Status DC Regadenoson (Lexiscan) 0.4 mg STK-MED ONCE IV ; Start 06/10/17 at 09:24; Stop at 09:25; Status DC Regadenoson (Lexiscan) 0.4 mg STK-MED ONCE IV ; Start 06/10/17 at 09:24; Stop at 10:04; Status DC Iohexol (Omnipaque 300 Mg/ml) 100 ml STK-MED ONCE .ROUTE ; Start 06/11/17 at 12: 54; Stop 06/11/17 at 12:55; Status DC Lidocaine HCl 20 ml STK-MED ONCE .ROUTE ; Start 06/11/17 at 12:55; Stop at 12:56; Status DC Heparin Sodium/ Sodium Chloride 500 ml @ As Directed STK-MED ONCE .ROUTE ; Start 06/11/17 at 12:55; Stop 06/11/17 at 12:56; Status DC Midazolam HCl (Versed) 2 mg STK-MED ONCE .ROUTE ; Start 06/11/17 at 13:23; Stop 06/11/17 at 13:24; Status DC Fentanyl Citrate (Fentanyl 2ml Vial) 100 mcg STK-MED ONCE .ROUTE ; Start at 13:23; Stop 06/11/17 at 13:24; Status DC Heparin Sodium/ Sodium Chloride 1,000 unit 1X ONCE IART Last administered on 13:52; Start 06/11/17 at 13:45; Stop 06/11/17 at 13:46; Status DC Midazolam HCl (Versed) 2 mg 1X ONCE IV Last administered on 06/11/17 13:52; Start 06/11/17 at 13:45; Stop 06/11/17 at 13:46; Status DC Fentanyl Citrate (Fentanyl 2ml Vial) 100 mcg 1X ONCE IV Last administered on 13:52; Start 06/11/17 at 13:45; Stop 06/11/17 at 13:46; Status DC Iohexol (Omnipaque 300 Mg/ml) 100 ml 1X ONCE IART Last administered on 13:51; Start 06/11/17 at 13:45; Stop 06/11/17 at 13:46; Status DC Lidocaine HCl 20 ml 1X ONCE IJ Last administered on 06/11/17t 13:51; Start at 13:45; Stop 06/11/17 at 13:46; Status DC Active Scripts Active Reported [none] Allergies Allergies: Coded Allergies: No Known Drug Allergies (Unverified , 10/19/13) ROS General: No: Chills, Night Sweats, Fatigue, Malaise, Appetite PSYCHOLOGICAL ROS: No: Anxiety, Behavioral Disorder, Concentration difficultie , Decreased libido, Depression, Disorientation, Hallucinations, Hostility, Irritablity, Memory difficulties, Mood Swings, Obsessive thoughts, Physical abuse, Sexual abuse, Sleep disturbances, Suicidal ideation Eyes: No Blurry vision, No Decreased vision, No Double vision, No Dry eyes, No Excessive tearing, No Eye Pain, No Itchy Eyes, No Loss of vision, No Photophobia , No Scotomata, No Uses contacts, No Uses glasses HEENT: No: Heacaches, Visual Changes, Hearing change, Nasal congestion, Nasal discharge, Oral lesions, Sinus pain, Sore Throat, Epistaxis, Sneezing, Snoring, Tinnitus, Vertigo, Vocal changes ALLERGY AND IMMUNOLOGY: No: Hives, Insect Bite Sensitivity, Itchy/Watery Eyes, Nasal Congestion, Post Nasal Drip, Seasonal Allergies Hematological and Lymphatic: No: Bleeding Problems, Blood Clots, Blood Transfusions, Brusing, Night Sweats, Pallor, Swollen Lymph Nodes ENDOCRINE: No: Breast Changes, Galactorrhea, Hair Pattern Changes, Hot Flashes , Malaise/lethargy, Mood Swings, Palpitations, Polydipsia/polyuria, Skin Changes , Temperature Intolerance, Unexpected Weight Changes Breast: No New/Changing Breast Lumps, No Nipple changes, No Nipple discharge Respiratory: YES: Shortness of breath, No: Cough, Hemoptysis, Orthopnea, Pleuritic Pain, SOB with excertion, Sputum Changes, Stridor, Tachypnea, Wheezing Cardiovascular: No Chest Pain, No Palpitations, No Orthopnea, No Paroxysmal Noc. Dyspnea, No Edema, No Lt Headedness Gastrointestinal: No Nausea, No Vomiting, No Abdominal Pain, No Diarrhea, No Constipation, No Melena, No Hematochezia Genitourinary: YES , No Dysuria, No Frequency, No Incontinence, No Hematuria, No Retention, No Discharge, No Urgency, No Pain, No Flank Pain Musculoskeletal: No Gait Disturbance, No Joint Pain, No Joint Stiffness, No Joint Swelling, No Muscle Pain, No Muscular Weakness, No Pain In:, No Swelling In: Neurological: No Behavorial Changes, No Bowel/Bladder ControlChng, No Confusion , No Dizziness, No Gait Disturbance, No Headaches, No Impaired Coord/balance, No Memory Loss, No Numbness/Tingling, No Seizures, No Speech Problems, No Tremors, No Visual Changes, No Weakness Skin: No Dry Skin, No Eczema, No Hair Changes, No Lumps, No Mole Changes, No Mottling, No Nail Changes, No Pruritus, No Rash, No Skin Lesion Changes, No Acne Physical Exam General: Alert, Oriented X3, No acute distress HEENT: Atraumatic, PERRLA Lungs: Clear to auscultation Heart: Regular rate, Normal S1, Normal S2 Abdomen: Soft, No tenderness Extremities: No edema Skin: No significant lesion Neuro: Normal gait, Normal speech, Strength at 5/5 X4 ext, Normal tone, Sensation intact, Cranial nerves 3-12 NL Psych/Mental Status: Mental status NL MUSCULOSKELETAL: No deformity Vitals VITALS Vital Signs Date Time Temp Pulse Resp B/P (MAP) Pulse Ox O2 Delivery O2 Flow Rate FiO2 06/11/17 14:45 56 146/81 (102) 06/11/17 13:53 14 100 Nasal Cannula 2.0 06/11/17 11:00 97.9 97.9 Images Images Coronary Angiography The patient's coronary anatomy is left dominant. The left main coronary artery is a large size vessel free of disease. The left main bifurcates to the left anterior descending and circumflex. The left anterior descending artery is a large size vessel with stenosis. There is a 70% stenosis in the proximal segment. at the take off of D1 The first diagonal branch is a medium size vessel with stenosis. There is a 100% stenosis in the ostial segment. The second diagonal branch is a small size vessel free of disease. The third diagonal branch is a small size vessel free of disease. The circumflex artery is a large size vessel with intimal irregularities and without significant stenosis. There is a 50% stenosis in the distal segment. before the PDA The first obtuse marginal branch is a large size vessel with stenosis. There is a 95% stenosis in the proximal segment. and 99% distal to the stent The second obtuse marginal branch is a medium size vessel free of disease. The third obtuse marginal branch is a medium size vessel free of disease. The left posterior descending artery is a medium size vessel free of disease. The right coronary artery is a small size vessel with stenosis. There is a 100% stenosis in the proximal segment. distal to the Conus branch Left Ventriculography The left ventricle is normal in size with decreased contractility. The left ventricular ejection fraction is estimated to be 40%. The left ventricular end diastolic pressure is 18 mmHg. There was no gradient across the aortic valve upon pullback. 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 Assessment/Plan Assessment/Plan 67-year-old male with a history of ischemic heart disease status post PCI to OM1 in 2013, who presents with increasing shortness of breath. The patient does not be taking any medications since his stent placement. He had nonspecific EKG changes and troponin was negative. He went on to have a coronary angiogram today which demonstrated a proximal tight LAD stenosis, in-stent stenosis of the OM1, with a very small vessel distal to the stent, and a puny nondominant RCA system. The LV gram showed a possible outpouching of the LV cavity although it does appear that there is normal muscle around this outpouching. The outpouching was present on his last LV gram in 2012. No definitive LV aneurysm was identified on echo. The patient is a candidate for CABG, a DOSS to the LAD. The OM1 and diagonals are not surgical targets. I don't think the patient has an LV aneurysm. It's simply severely dyskinetic or akinetic LV wall and it was present on his last LV gram in 2013. In addition , this region is not viable on MPI We can obtain a CT scan with IV contrast to delineate the LV. If not helpful we will proceed with a transesophageal echo on Wednesday to better delineate the LV anatomy, but again, there does not appear to be evidence of LV aneursym Will also obtain a carotid duplex, PFTs, lower extremity vein mapping. Plan for CABG (DOSS to LAD) on Friday June 16, 2017. Hold OLGA inhibitor. Would do beta suleiman instead CORY CALLAWAY MD Jun 11, 2017 16:23
[2017-06-11] MEDS: ENOXAPARIN 40 MG/0.4 ML SYRINGE. SQ SCH (17:20)
--- NOTE | 2017-06-11 19:24 | PDOC ---
PROGRESS NOTES Subjective Subjective He is comfortable. Objective Objective Vital Signs Date Time Temp Pulse Resp B/P (MAP) Pulse Ox O2 Delivery O2 Flow Rate FiO2 06/11/17 17:45 56 145/68 (93) 06/11/17 13:53 14 100 Nasal Cannula 2.0 06/11/17 11:00 97.9 97.9 Intake and Output 06/12/17 07:00 Intake Total 400 ml Output Total 900 ml Balance -500 ml Intake Oral 400 ml Output Urine Total 900 ml # Voids 2 Physical Exam Physical Exam He is alert and walking in his room without any assistance. Assessment Assessment Problems Medical Problems: (1) Chest pain Status: Acute (2) Shortness of breath Status: Acute Plan Plan of Fpc when medically stable. Comment Review of Relevant I have reviewed the following items chetan (where applicable) has been applied. Labs Laboratory Tests Test 06/11/17 17:20 Activated Partial Thromboplast Time 31 SEC (24-38) Laboratory Tests Test 06/11/17 17:20 Activated Partial Thromboplast Time 31 SEC (24-38) Medications Current Medications Ondansetron HCl (Zofran) 4 mg PRN Q8HRS PRN IV NAUSEA/VOMITING; Start 06/08/17 at 16:45; Stop 06/09/17 at 14:42; Status DC Morphine Sulfate 2 mg PRN Q2HR PRN IV PAIN; Start 06/08/17 at 16:45; Stop 06/09 at 14:42; Status DC Acetaminophen (Tylenol) 650 mg PRN Q6HRS PRN PO FEVER; Start 06/08/17 at 17:45 Ondansetron HCl (Zofran) 4 mg PRN Q6HRS PRN IV NAUSEA/VOMITING; Start 06/08/17 at 17:45 Morphine Sulfate 2 mg PRN Q2HR PRN IV PAIN; Start 06/08/17 at 17:45 Tramadol HCl (Ultram) 50 mg PRN Q6HRS PRN PO PAIN MILD TO MOD; Start 06/08/17 at 17:45 Hydralazine HCl (Apresoline) 10 mg PRN Q4HRS PRN IVP ELEVATED BP, SEE COMMENTS ; Start 06/08/17 at 17:45 Docusate Sodium (Colace) 100 mg PRN DAILY PRN PO CONSTIPATION; Start 06/08/17 at 17:45 Albuterol Sulfate (Ventolin Neb Soln) 2.5 mg PRN Q4HRS PRN NEB SHORTNESS OF BREATH; Start 06/08/17 at 17:45 Enoxaparin Sodium (Lovenox 40mg Syringe) 40 mg Q24H SQ Last administered on 19:41; Start 06/08/17 at 18:00 Folic Acid (Folic Acid) 1 mg DAILY PO Last administered on 06/11/17 08:39; Start 06/08/17 at 18:00 Thiamine Mononitrate (Vitamin B-1) 100 mg DAILY PO Last administered on 08:39; Start 06/08/17 at 18:00 Lorazepam (Ativan) 2 mg PRN Q4HRS PRN IV ANXIETY / AGITATION Last administered on 06/09/17 00:49; Start 06/08/17 at 17:45 Lisinopril (Prinivil) 40 mg DAILY PO ; Start 06/08/17 at 18:00; Stop 06/08/17 at 18:45; Status DC Lisinopril (Prinivil) 20 mg DAILY PO ; Start 06/09/17 at 09:00; Stop 06/11/17 at 17:13; Status DC Zolpidem Tartrate (Ambien) 5 mg PRN QHS PRN PO INSOMNIA Last administered on 22:43; Start 06/08/17 at 20:45 Vitamin B Complex (Folbic Tablet) 1 tab DAILY PO Last administered on 08:39; Start 06/09/17 at 10:30 Cyanocobalamin (Vitamin B-12) 1,000 mcg 1X ONCE IM Last administered on 13:46; Start 06/09/17 at 10:45; Stop 06/09/17 at 10:46; Status DC Regadenoson (Lexiscan) 0.4 mg 1X ONCE IV ; Start 06/10/17 at 08:45; Stop at 08:46; Status DC Regadenoson (Lexiscan) 0.4 mg STK-MED ONCE IV ; Start 06/10/17 at 09:24; Stop at 09:25; Status DC Regadenoson (Lexiscan) 0.4 mg STK-MED ONCE IV ; Start 06/10/17 at 09:24; Stop at 10:04; Status DC Iohexol (Omnipaque 300 Mg/ml) 100 ml STK-MED ONCE .ROUTE ; Start 06/11/17 at 12: 54; Stop 06/11/17 at 12:55; Status DC Lidocaine HCl 20 ml STK-MED ONCE .ROUTE ; Start 06/11/17 at 12:55; Stop at 12:56; Status DC Heparin Sodium/ Sodium Chloride 500 ml @ As Directed STK-MED ONCE .ROUTE ; Start 06/11/17 at 12:55; Stop 06/11/17 at 12:56; Status DC Midazolam HCl (Versed) 2 mg STK-MED ONCE .ROUTE ; Start 06/11/17 at 13:23; Stop 06/11/17 at 13:24; Status DC Fentanyl Citrate (Fentanyl 2ml Vial) 100 mcg STK-MED ONCE .ROUTE ; Start at 13:23; Stop 06/11/17 at 13:24; Status DC Heparin Sodium/ Sodium Chloride 1,000 unit 1X ONCE IART Last administered on 13:52; Start 06/11/17 at 13:45; Stop 06/11/17 at 13:46; Status DC Midazolam HCl (Versed) 2 mg 1X ONCE IV Last administered on 06/11/17 13:52; Start 06/11/17 at 13:45; Stop 06/11/17 at 13:46; Status DC Fentanyl Citrate (Fentanyl 2ml Vial) 100 mcg 1X ONCE IV Last administered on 13:52; Start 06/11/17 at 13:45; Stop 06/11/17 at 13:46; Status DC Iohexol (Omnipaque 300 Mg/ml) 100 ml 1X ONCE IART Last administered on 13:51; Start 06/11/17 at 13:45; Stop 06/11/17 at 13:46; Status DC Lidocaine HCl 20 ml 1X ONCE IJ Last administered on 06/11/17 13:51; Start at 13:45; Stop 06/11/17 at 13:46; Status DC Metoprolol Tartrate (Lopressor) 25 mg BID PO ; Start 06/11/17 at 21:00 Active Scripts Active Reported [none] Vitals/I & O Vital Sign - Last 24 Hours 06/10/17 06/10/17 06/11/17 06/11/17 20:00 22:16 02:54 07:00 Temp 97.9 98.3 97.5 97.9 98.3 97.5 Pulse 68 65 63 Resp 16 16 18 B/P (MAP) 156/82 (106) 131/70 (90) 145/68 (93) Pulse Ox 97 100 99 O2 Delivery Room Air Room Air Room Air Room Air 06/11/17 06/11/17 06/11/17 06/11/17 08:00 11:00 13:52 13:53 Temp 97.9 97.9 Pulse 67 71 Resp 18 14 14 B/P (MAP) 144/75 (98) Pulse Ox 100 100 100 O2 Delivery Room Air Nasal Cannula Nasal Cannula O2 Flow Rate 2.0 2.0 06/11/17 06/11/17 06/11/17 06/11/17 14:00 14:15 14:30 14:45 Pulse 57 59 56 56 B/P (MAP) 161/91 (114) 162/90 (114) 145/87 (106) 146/81 (102) 06/11/17 06/11/17 06/11/17 06/11/17 15:15 15:45 16:45 17:45 Pulse 58 58 56 56 B/P (MAP) 151/77 (101) 153/93 (113) 155/84 (107) 145/68 (93) Intake and Output 06/11/17 06/11/17 06/12/17 15:00 23:00 07:00 Intake Total 400 ml Output Total 500 ml 400 ml Balance -100 ml -400 ml MAGDALENE CRUZ MD Jun 11, 2017 19:24
--- NOTE | 2017-06-11 19:47 | RAD ---
APPROVED REPORT Test Type: Pharmacological Stress Nurse/Tech: Althea Callahan R.N. Test Indications: CAD, SOA Cardiac History: stent 5 yrs ago, smoker Medications: See Electronic Medical Record Medical History: See Electronic Medical Record Resting ECG: SB w/ inverted T waves in leads II,III,AVF,V5,V6 Resting Heart Rate: 58 bpm Resting Blood Pressure: 146/85mmHg Pretest Chest Pain: No chest pain Nurse/Tech Notes S1S2, LUNGS CTA Consent: The procedure was explained to the patient in lay terms. Informed consent was witnessed. Yoni eout was entered into [employer]. History and Stress Test performed by RT Phill (Shyam) (N) Pharm. Details Pharmacologic stress testing was performed using 0.4mg per 5ml of regadenoson given intravenously ove r 7-10 seconds. Stress Symptoms SOB, slight H/A , some of the inverted T waves became upright during the middle of recovery period POST EXERCISE Reason for Termination: Infusion complete Max HR: 94 bpm Max Blood Pressure: 151/70mmHg Blood Pressure response to exercise: Normal blood pressure response during stress. Heart Rate response to exercise: wnl Chest Pain: No. Arrhythmia: No. ST Change: No. Imaging Protocol IMAGE PROTOCOL: Rest Tc-99m/stress Tc-99m 1 day Rest: Stress: Viability: Radiopharm.Tc99m AfycrtuqsXe32v Sestamibi Fmtr87cYe 33mCi Duration 15min. 12min. Img Date 06/10/2017 06/10/2017 Rest Admin Site:IV - Left ForearmAdministrator:RT Aneudy Willoughby)(N) Stress Admin Site: IV - Left ForearmAdministrator: RT Phill (Shyam)(N) STRESS DATA End Diast. Vol.117.0mlAv. Heart Rate84.0bpm End Syst. Vol.69.0mlCO Index BSA0.0L/min Myocardial Govs808.0gEject. Oyanfzvc29.0% Stress Rates Pk. Fill Rate2.29EDV/secLVtime Pk. Fill 97.19msec Pk. Empty Rate3.25ESV/secLVtime Pk. Gumjf973.17msec 09/22 Pk. Fill1.41EDV/sec Stress Scores Regional WT2.00Summed WT30.00 Regional WM0.00Summed WM26.00 LV Perf. Quant 17 Seg. SSS27.00 17 Seg. SRS15.00 17 Seg. SDS12.00 Stress Defect Extent (% LAD)61.30Rest Defect Extent (% LAD)50.00Rev. Defect Extent (% LAD)22.50 Stress Defect Extent (% LCX) 67.50Rest Defect Extent (% LCX)27.50Rev. Defect Extent (% LCX)67.50 Stress Defect Extent (% RCA)10.00Rest Defect Extent (% RCA)0.00Rev. Defect Extent (% RCA)10.00 Stress Defect Extent (% JORDYN)48.70Rest Defect Extent (% JORDYN)29.60Rev. Defect Extent (% JORDYN)32.20 Conclusion 1. The baseline EKG showed inverted T waves over the inferolateral leads. 2. There was no ST depression with pharmacological stress. 3. There is a large perfusion defect over the anterior wall, apex, lateral wall, and a portion of the inferior wall predominantly with stress 4. This is a large area of myocardial ischemia suggesting mulivessel CAD. 5. Diffuse decrease in wall motion with an ejection fraction of 41%. 6. [facility] indiates a very high risk for future cardiac events
[2017-06-11] MEDS: METOPROLOL TART IMMED RELEASE 25 MG TABLET. PO SCH (20:27)
[2017-06-12 03:00] VITALS: BP 135/83
[2017-06-12 05:45] LABS: BASO # 0.1 x10^3/uL (0.0-0.2); BASO % 1 % (0-3); EOS % 5 % (0-3); HEMATOCRIT 42.8 % (39.0-53.0); LYMPH # 1.4 x10^3/uL (1.0-4.8); LYMPH % 25 % (24-48); MEAN CORPUSCULAR HEMOGLOBIN 34 pg (25-35); MEAN CORPUSCULAR HGB CONC 35 g/dL (31-37); MEAN CORPUSCULAR VOLUME 96 fL (79-100); MONO % 16 % (0-9); NEUT % 53 % (31-73); PLATELET COUNT 235 x10^3/uL (140-400); RED BLOOD COUNT 4.46 x10^6/uL (4.30-5.70); RED CELL DISTRIBUTION WIDTH 12.9 % (11.5-14.5); WHITE BLOOD COUNT 5.4 x10^3/uL (4.0-11.0)
[2017-06-12 06:08] LABS: CALCIUM 8.9 mg/dL (8.5-10.1); GFR 90.7; POTASSIUM 3.9 mmol/L (3.5-5.1)
[2017-06-12 07:00] VITALS: BP 121/65
[2017-06-12] MEDS ORDERED: CONTRAST GIVEN MC PRN (08:15)
[2017-06-12] MEDS: FOLIC ACID 1 MG TABLET. PO SCH (08:29)
[2017-06-12] MEDS: THIAMINE 100 MG TABLET. PO SCH (08:29)
[2017-06-12] MEDS: VITAMIN B12,B9,B6 COMPLEX 1 TABLET. PO SCH (08:29)
[2017-06-12] MEDS ORDERED: IOHEXOL 300 MG/ML 75 ML VIAL IV ONE (08:30)
[2017-06-12] MEDS: METOPROLOL TART IMMED RELEASE 25 MG TABLET. PO SCH ×2 (09:00→22:17)
--- NOTE | 2017-06-12 10:41 | RAD ---
Bilateral carotid arterial duplex study 06/11/2017 Clinical History: Preop CABG procedure. Technique: Using a combination of real-time ultrasound imaging and color-flow and pulse Doppler imaging techniques, duplex evaluation of the carotid and vertebral arterial structures within the neck was performed. Multiple images were obtained. Findings: Mild atheromatous/atherosclerotic plaque formation is seen involving both carotid bifurcations. The peak systolic velocities are not significantly elevated. No hemodynamically significant stenosis is seen. The vertebral arteries demonstrate normal antegrade flow. Impression: Mild atheromatous/atherosclerotic plaque formation is seen involving both carotid bifurcations. No hemodynamically significant stenosis is seen. Please note that stenosis calculations for carotid ultrasound studies are derived from validated velocity criteria which are known to correlate with the NASCET methodology.
--- NOTE | 2017-06-12 11:02 | RAD ---
Bilateral lower extremity venous duplex vein mapping study 06/11/2017 Clinical history: Preop CABG procedure. Technique: Using a combination of real-time ultrasound imaging and color-flow and pulse Doppler imaging techniques along with graded compression and augmentation, duplex evaluation of the greater and lesser saphenous veins within both lower extremities was performed. Multiple images were obtained. Findings: The greater and lesser saphenous veins are patent bilaterally. The diameter of the right greater saphenous vein varies from 6.8 mm proximally to 3.3 mm distally. The right lesser saphenous vein varies from 3.2 to 3.5 mm in diameter. The diameter of the left greater saphenous vein variation from 5 mm to 2.8 mm in diameter. The left lesser saphenous vein varies in diameter from 3.5 to 2.6 mm. Impression: The greater and lesser saphenous veins are patent bilaterally.
--- NOTE | 2017-06-12 11:09 | RAD ---
CT scan of the chest with contrast 06/12/2017 Clinical history: History of coronary artery disease. Pre-CABG procedure. Technique: After the intravenous administration of 75 cc of Omnipaque 300, contiguous, 5 mm axial sections were obtained through the chest and upper abdomen. One or more of the following individualized dose reduction techniques were utilized for this study: 1. Automated exposure control. 2. Adjustment of the mA and/or kV according to patient size. 3. Use of iterative reconstruction technique. Findings: Comparison study is dated 10/19/2013. Mild atheromatous/atherosclerotic plaque formation is seen involving the thoracic aorta. The thoracic aorta is mildly tortuous but tapers normally. Extensive coronary artery calcifications are seen bilaterally. The heart is mildly enlarged. No focal aneurysm of the left ventricle is definitely seen. Small calcified mediastinal lymph nodes are noted. Very mild emphysematous changes are seen involving both upper lobes. Areas of probable scarring are seen involving the apices of both lungs, right greater than left. No area of consolidation is seen. No pneumothorax or pleural effusion is noted Images through the upper abdomen are within normal limits. Minimal S shaped curvature of the thoracolumbar spine is seen. Impression: No acute abnormality is seen.
[2017-06-12 11:39] VITALS: BP 129/70
--- NOTE | 2017-06-12 13:12 | PDOC ---
PROGRESS NOTES Chief Complaint Chief Complaint exertional dyspnea with CHF likely chest pain with dyspnea chronic combined systolic and diastolic CHF,, est EF 40% on MPI H/O CAD 2013 with 1 stent at obtuse marginal branch HTN poor control, noncompliant with emds alcohol abuse d/o, prior tobaccoism leg weakness, unsteady gait and peripheral neuropathy plan; fu with card, CT MPI + with large defect cath showed multiple vessle dz CT recommend CABG ON Wednesday, but pt told me maybe cont current meds on metoprolol chest lower ext US, carotid US, chest CT as per CT History of Present Illness History of Present Illness ROS : no fever, chills, chest pain exertional sob no chest pain told ME CT told him maybe or maybe not CABG Vitals Vitals Vital Signs Date Time Temp Pulse Resp B/P (MAP) Pulse Ox O2 Delivery O2 Flow Rate FiO2 06/12/17 11:39 98.1 59 20 129/70 (89) 99 Room Air 98.1 06/11/17 13:53 2.0 Physical Exam General: Alert, Oriented X3, No acute distress Heart: Regular rate, Normal S1, Normal S2 Lungs: Clear Abdomen: Soft, No tenderness Extremities: No edema Skin: No significant lesion Labs LABS Laboratory Tests Test 06/11/17 17:20 06/12/17 05:26 Activated Partial Thromboplast Time 31 SEC (24-38) White Blood Count 5.4 x10^3/uL (4.0-11.0) Red Blood Count 4.46 x10^6/uL (4.30-5.70) Hemoglobin 15.0 g/dL (13.0-17.5) Hematocrit 42.8 % (39.0-53.0) Mean Corpuscular Volume 96 fL (79-100) Mean Corpuscular Hemoglobin 34 pg (25-35) Mean Corpuscular Hemoglobin Concent 35 g/dL (31-37) Red Cell Distribution Width 12.9 % (11.5-14.5) Platelet Count 235 x10^3/uL (140-400) Neutrophils (%) (Auto) 53 % (31-73) Lymphocytes (%) (Auto) 25 % (24-48) Monocytes (%) (Auto) 16 % (0-9) Eosinophils (%) (Auto) 5 % (0-3) Basophils (%) (Auto) 1 % (0-3) Neutrophils # (Auto) 2.9 x10^3uL (1.8-7.7) Lymphocytes # (Auto) 1.4 x10^3/uL (1.0-4.8) Monocytes # (Auto) 0.9 x10^3/uL (0.0-1.1) Eosinophils # (Auto) 0.3 x10^3/uL (0.0-0.7) Basophils # (Auto) 0.1 x10^3/uL (0.0-0.2) Sodium Level 139 mmol/L (136-145) Potassium Level 3.9 mmol/L (3.5-5.1) Chloride Level 102 mmol/L (98-107) Carbon Dioxide Level 30 mmol/L (21-32) Anion Gap 7 (6-14) Blood Urea Nitrogen 12 mg/dL (8-26) Creatinine 1.0 mg/dL (0.7-1.3) Estimated GFR (Cockcroft-Gault) 90.7 Glucose Level 101 mg/dL (70-99) Calcium Level 8.9 mg/dL (8.5-10.1) Assessment and Plan Assessmemt and Plan Problems Medical Problems: (1) Chest pain Status: Acute (2) Shortness of breath Status: Acute Problems: Comment Review of Relevant I have reviewed the following items chetan (where applicable) has been applied. Labs Laboratory Tests Test 06/11/17 17:20 06/12/17 05:26 Activated Partial Thromboplast Time 31 SEC (24-38) White Blood Count 5.4 x10^3/uL (4.0-11.0) Red Blood Count 4.46 x10^6/uL (4.30-5.70) Hemoglobin 15.0 g/dL (13.0-17.5) Hematocrit 42.8 % (39.0-53.0) Mean Corpuscular Volume 96 fL (79-100) Mean Corpuscular Hemoglobin 34 pg (25-35) Mean Corpuscular Hemoglobin Concent 35 g/dL (31-37) Red Cell Distribution Width 12.9 % (11.5-14.5) Platelet Count 235 x10^3/uL (140-400) Neutrophils (%) (Auto) 53 % (31-73) Lymphocytes (%) (Auto) 25 % (24-48) Monocytes (%) (Auto) 16 % (0-9) Eosinophils (%) (Auto) 5 % (0-3) Basophils (%) (Auto) 1 % (0-3) Neutrophils # (Auto) 2.9 x10^3uL (1.8-7.7) Lymphocytes # (Auto) 1.4 x10^3/uL (1.0-4.8) Monocytes # (Auto) 0.9 x10^3/uL (0.0-1.1) Eosinophils # (Auto) 0.3 x10^3/uL (0.0-0.7) Basophils # (Auto) 0.1 x10^3/uL (0.0-0.2) Sodium Level 139 mmol/L (136-145) Potassium Level 3.9 mmol/L (3.5-5.1) Chloride Level 102 mmol/L (98-107) Carbon Dioxide Level 30 mmol/L (21-32) Anion Gap 7 (6-14) Blood Urea Nitrogen 12 mg/dL (8-26) Creatinine 1.0 mg/dL (0.7-1.3) Estimated GFR (Cockcroft-Gault) 90.7 Glucose Level 101 mg/dL (70-99) Calcium Level 8.9 mg/dL (8.5-10.1) Laboratory Tests Test 06/11/17 17:20 06/12/17 05:26 Activated Partial Thromboplast Time 31 SEC (24-38) White Blood Count 5.4 x10^3/uL (4.0-11.0) Red Blood Count 4.46 x10^6/uL (4.30-5.70) Hemoglobin 15.0 g/dL (13.0-17.5) Hematocrit 42.8 % (39.0-53.0) Mean Corpuscular Volume 96 fL (79-100) Mean Corpuscular Hemoglobin 34 pg (25-35) Mean Corpuscular Hemoglobin Concent 35 g/dL (31-37) Red Cell Distribution Width 12.9 % (11.5-14.5) Platelet Count 235 x10^3/uL (140-400) Neutrophils (%) (Auto) 53 % (31-73) Lymphocytes (%) (Auto) 25 % (24-48) Monocytes (%) (Auto) 16 % (0-9) Eosinophils (%) (Auto) 5 % (0-3) Basophils (%) (Auto) 1 % (0-3) Neutrophils # (Auto) 2.9 x10^3uL (1.8-7.7) Lymphocytes # (Auto) 1.4 x10^3/uL (1.0-4.8) Monocytes # (Auto) 0.9 x10^3/uL (0.0-1.1) Eosinophils # (Auto) 0.3 x10^3/uL (0.0-0.7) Basophils # (Auto) 0.1 x10^3/uL (0.0-0.2) Sodium Level 139 mmol/L (136-145) Potassium Level 3.9 mmol/L (3.5-5.1) Chloride Level 102 mmol/L (98-107) Carbon Dioxide Level 30 mmol/L (21-32) Anion Gap 7 (6-14) Blood Urea Nitrogen 12 mg/dL (8-26) Creatinine 1.0 mg/dL (0.7-1.3) Estimated GFR (Cockcroft-Gault) 90.7 Glucose Level 101 mg/dL (70-99) Calcium Level 8.9 mg/dL (8.5-10.1) Medications Current Medications Ondansetron HCl (Zofran) 4 mg PRN Q8HRS PRN IV NAUSEA/VOMITING; Start 06/08/17 at 16:45; Stop 06/09/17 at 14:42; Status DC Morphine Sulfate 2 mg PRN Q2HR PRN IV PAIN; Start 06/08/17 at 16:45; Stop 06/09 at 14:42; Status DC Acetaminophen (Tylenol) 650 mg PRN Q6HRS PRN PO FEVER; Start 06/08/17 at 17:45 Ondansetron HCl (Zofran) 4 mg PRN Q6HRS PRN IV NAUSEA/VOMITING; Start 06/08/17 at 17:45 Morphine Sulfate 2 mg PRN Q2HR PRN IV PAIN; Start 06/08/17 at 17:45 Tramadol HCl (Ultram) 50 mg PRN Q6HRS PRN PO PAIN MILD TO MOD; Start 06/08/17 at 17:45 Hydralazine HCl (Apresoline) 10 mg PRN Q4HRS PRN IVP ELEVATED BP, SEE COMMENTS ; Start 06/08/17 at 17:45 Docusate Sodium (Colace) 100 mg PRN DAILY PRN PO CONSTIPATION; Start 06/08/17 at 17:45 Albuterol Sulfate (Ventolin Neb Soln) 2.5 mg PRN Q4HRS PRN NEB SHORTNESS OF BREATH; Start 06/08/17 at 17:45 Enoxaparin Sodium (Lovenox 40mg Syringe) 40 mg Q24H SQ Last administered on 19:41; Start 06/08/17 at 18:00 Folic Acid (Folic Acid) 1 mg DAILY PO Last administered on 06/12/17 08:29; Start 06/08/17 at 18:00 Thiamine Mononitrate (Vitamin B-1) 100 mg DAILY PO Last administered on 08:29; Start 06/08/17 at 18:00 Lorazepam (Ativan) 2 mg PRN Q4HRS PRN IV ANXIETY / AGITATION Last administered on 06/09/17 00:49; Start 06/08/17 at 17:45 Lisinopril (Prinivil) 40 mg DAILY PO ; Start 06/08/17 at 18:00; Stop 06/08/17 at 18:45; Status DC Lisinopril (Prinivil) 20 mg DAILY PO ; Start 06/09/17 at 09:00; Stop 06/11/17 at 17:13; Status DC Zolpidem Tartrate (Ambien) 5 mg PRN QHS PRN PO INSOMNIA Last administered on 22:43; Start 06/08/17 at 20:45 Vitamin B Complex (Folbic Tablet) 1 tab DAILY PO Last administered on 08:29; Start 06/09/17 at 10:30 Cyanocobalamin (Vitamin B-12) 1,000 mcg 1X ONCE IM Last administered on 13:46; Start 06/09/17 at 10:45; Stop 06/09/17 at 10:46; Status DC Regadenoson (Lexiscan) 0.4 mg 1X ONCE IV ; Start 06/10/17 at 08:45; Stop at 08:46; Status DC Regadenoson (Lexiscan) 0.4 mg STK-MED ONCE IV ; Start 06/10/17 at 09:24; Stop at 09:25; Status DC Regadenoson (Lexiscan) 0.4 mg STK-MED ONCE IV ; Start 06/10/17 at 09:24; Stop at 10:04; Status DC Iohexol (Omnipaque 300 Mg/ml) 100 ml STK-MED ONCE .ROUTE ; Start 06/11/17 at 12: 54; Stop 06/11/17 at 12:55; Status DC Lidocaine HCl 20 ml STK-MED ONCE .ROUTE ; Start 06/11/17 at 12:55; Stop at 12:56; Status DC Heparin Sodium/ Sodium Chloride 500 ml @ As Directed STK-MED ONCE .ROUTE ; Start 06/11/17 at 12:55; Stop 06/11/17 at 12:56; Status DC Midazolam HCl (Versed) 2 mg STK-MED ONCE .ROUTE ; Start 06/11/17 at 13:23; Stop 06/11/17 at 13:24; Status DC Fentanyl Citrate (Fentanyl 2ml Vial) 100 mcg STK-MED ONCE .ROUTE ; Start at 13:23; Stop 06/11/17 at 13:24; Status DC Heparin Sodium/ Sodium Chloride 1,000 unit 1X ONCE IART Last administered on 13:52; Start 06/11/17 at 13:45; Stop 06/11/17 at 13:46; Status DC Midazolam HCl (Versed) 2 mg 1X ONCE IV Last administered on 06/11/17 13:52; Start 06/11/17 at 13:45; Stop 06/11/17 at 13:46; Status DC Fentanyl Citrate (Fentanyl 2ml Vial) 100 mcg 1X ONCE IV Last administered on 13:52; Start 06/11/17 at 13:45; Stop 06/11/17 at 13:46; Status DC Iohexol (Omnipaque 300 Mg/ml) 100 ml 1X ONCE IART Last administered on 13:51; Start 06/11/17 at 13:45; Stop 06/11/17 at 13:46; Status DC Lidocaine HCl 20 ml 1X ONCE IJ Last administered on 06/11/17 13:51; Start at 13:45; Stop 06/11/17 at 13:46; Status DC Metoprolol Tartrate (Lopressor) 25 mg BID PO Last administered on 06/11/17 20: 27; Start 06/11/17 at 21:00 Iohexol (Omnipaque 300 Mg/ml) 75 ml 1X ONCE IV Last administered on 06/12/17 08:12; Start 06/12/17 at 08:30; Stop 06/12/17 at 08:31; Status DC Info (Do NOT chart on this entry -- for MONITORING) 1 each PRN DAILY PRN MC SEE COMMENTS; Start 06/12/17 at 08:15; Stop 06/14/17 at 08:14 Active Scripts Active Reported [none] Vitals/I & O Vital Sign - Last 24 Hours 06/11/17 06/11/17 06/11/17 06/11/17 13:52 13:53 14:00 14:15 Pulse 71 57 59 Resp 14 14 B/P (MAP) 161/91 (114) 162/90 (114) Pulse Ox 100 100 O2 Delivery Nasal Cannula Nasal Cannula O2 Flow Rate 2.0 2.0 06/11/17 06/11/17 06/11/17 06/11/17 14:30 14:45 15:15 15:45 Pulse 56 56 58 58 B/P (MAP) 145/87 (106) 146/81 (102) 151/77 (101) 153/93 (113) 06/11/17 06/11/17 06/11/17 06/11/17 16:45 17:45 19:00 20:00 Temp 97.9 97.9 Pulse 56 56 67 Resp 18 B/P (MAP) 155/84 (107) 145/68 (93) 147/68 (94) Pulse Ox 96 O2 Delivery Room Air Room Air 06/11/17 06/11/17 06/12/17 06/12/17 20:27 23:00 03:00 07:00 Temp 98.1 97.9 97.9 98.1 97.9 97.9 Pulse 67 67 65 56 Resp 16 16 20 B/P (MAP) 147/68 165/91 (115) 135/83 (100) 121/65 (83) Pulse Ox 96 99 98 O2 Delivery Room Air Room Air Room Air 06/12/17 06/12/17 06/12/17 08:00 08:15 11:39 Temp 98.1 98.1 Pulse 59 Resp 20 B/P (MAP) 129/70 (89) Pulse Ox 99 O2 Delivery Room Air Room Air Room Air MADDI WIGGINS MD Jun 12, 2017 13:12
--- NOTE | 2017-06-12 13:43 | PDOC ---
PROGRESS NOTES Subjective Subjective No new complaints. Objective Objective Vital Signs Date Time Temp Pulse Resp B/P (MAP) Pulse Ox O2 Delivery O2 Flow Rate FiO2 06/12/17 11:39 98.1 59 20 129/70 (89) 99 Room Air 98.1 06/11/17 13:53 2.0 Physical Exam Physical Exam He is comfortable,supine in bed and cardiac cath report noted. Assessment Assessment Problems Medical Problems: (1) Chest pain Status: Acute (2) Shortness of breath Status: Acute Plan Plan of Care Agree with plans. Comment Review of Relevant I have reviewed the following items chetan (where applicable) has been applied. Labs Laboratory Tests Test 06/11/17 17:20 06/12/17 05:26 Activated Partial Thromboplast Time 31 SEC (24-38) White Blood Count 5.4 x10^3/uL (4.0-11.0) Red Blood Count 4.46 x10^6/uL (4.30-5.70) Hemoglobin 15.0 g/dL (13.0-17.5) Hematocrit 42.8 % (39.0-53.0) Mean Corpuscular Volume 96 fL (79-100) Mean Corpuscular Hemoglobin 34 pg (25-35) Mean Corpuscular Hemoglobin Concent 35 g/dL (31-37) Red Cell Distribution Width 12.9 % (11.5-14.5) Platelet Count 235 x10^3/uL (140-400) Neutrophils (%) (Auto) 53 % (31-73) Lymphocytes (%) (Auto) 25 % (24-48) Monocytes (%) (Auto) 16 % (0-9) Eosinophils (%) (Auto) 5 % (0-3) Basophils (%) (Auto) 1 % (0-3) Neutrophils # (Auto) 2.9 x10^3uL (1.8-7.7) Lymphocytes # (Auto) 1.4 x10^3/uL (1.0-4.8) Monocytes # (Auto) 0.9 x10^3/uL (0.0-1.1) Eosinophils # (Auto) 0.3 x10^3/uL (0.0-0.7) Basophils # (Auto) 0.1 x10^3/uL (0.0-0.2) Sodium Level 139 mmol/L (136-145) Potassium Level 3.9 mmol/L (3.5-5.1) Chloride Level 102 mmol/L (98-107) Carbon Dioxide Level 30 mmol/L (21-32) Anion Gap 7 (6-14) Blood Urea Nitrogen 12 mg/dL (8-26) Creatinine 1.0 mg/dL (0.7-1.3) Estimated GFR (Cockcroft-Gault) 90.7 Glucose Level 101 mg/dL (70-99) Calcium Level 8.9 mg/dL (8.5-10.1) Laboratory Tests Test 06/11/17 17:20 06/12/17 05:26 Activated Partial Thromboplast Time 31 SEC (24-38) White Blood Count 5.4 x10^3/uL (4.0-11.0) Red Blood Count 4.46 x10^6/uL (4.30-5.70) Hemoglobin 15.0 g/dL (13.0-17.5) Hematocrit 42.8 % (39.0-53.0) Mean Corpuscular Volume 96 fL (79-100) Mean Corpuscular Hemoglobin 34 pg (25-35) Mean Corpuscular Hemoglobin Concent 35 g/dL (31-37) Red Cell Distribution Width 12.9 % (11.5-14.5) Platelet Count 235 x10^3/uL (140-400) Neutrophils (%) (Auto) 53 % (31-73) Lymphocytes (%) (Auto) 25 % (24-48) Monocytes (%) (Auto) 16 % (0-9) Eosinophils (%) (Auto) 5 % (0-3) Basophils (%) (Auto) 1 % (0-3) Neutrophils # (Auto) 2.9 x10^3uL (1.8-7.7) Lymphocytes # (Auto) 1.4 x10^3/uL (1.0-4.8) Monocytes # (Auto) 0.9 x10^3/uL (0.0-1.1) Eosinophils # (Auto) 0.3 x10^3/uL (0.0-0.7) Basophils # (Auto) 0.1 x10^3/uL (0.0-0.2) Sodium Level 139 mmol/L (136-145) Potassium Level 3.9 mmol/L (3.5-5.1) Chloride Level 102 mmol/L (98-107) Carbon Dioxide Level 30 mmol/L (21-32) Anion Gap 7 (6-14) Blood Urea Nitrogen 12 mg/dL (8-26) Creatinine 1.0 mg/dL (0.7-1.3) Estimated GFR (Cockcroft-Gault) 90.7 Glucose Level 101 mg/dL (70-99) Calcium Level 8.9 mg/dL (8.5-10.1) Medications Current Medications Ondansetron HCl (Zofran) 4 mg PRN Q8HRS PRN IV NAUSEA/VOMITING; Start 06/08/17 at 16:45; Stop 06/09/17 at 14:42; Status DC Morphine Sulfate 2 mg PRN Q2HR PRN IV PAIN; Start 06/08/17 at 16:45; Stop 06/09 at 14:42; Status DC Acetaminophen (Tylenol) 650 mg PRN Q6HRS PRN PO FEVER; Start 06/08/17 at 17:45 Ondansetron HCl (Zofran) 4 mg PRN Q6HRS PRN IV NAUSEA/VOMITING; Start 06/08/17 at 17:45 Morphine Sulfate 2 mg PRN Q2HR PRN IV PAIN; Start 06/08/17 at 17:45 Tramadol HCl (Ultram) 50 mg PRN Q6HRS PRN PO PAIN MILD TO MOD; Start 06/08/17 at 17:45 Hydralazine HCl (Apresoline) 10 mg PRN Q4HRS PRN IVP ELEVATED BP, SEE COMMENTS ; Start 06/08/17 at 17:45 Docusate Sodium (Colace) 100 mg PRN DAILY PRN PO CONSTIPATION; Start 06/08/17 at 17:45 Albuterol Sulfate (Ventolin Neb Soln) 2.5 mg PRN Q4HRS PRN NEB SHORTNESS OF BREATH; Start 06/08/17 at 17:45 Enoxaparin Sodium (Lovenox 40mg Syringe) 40 mg Q24H SQ Last administered on 19:41; Start 06/08/17 at 18:00 Folic Acid (Folic Acid) 1 mg DAILY PO Last administered on 06/12/17 08:29; Start 06/08/17 at 18:00 Thiamine Mononitrate (Vitamin B-1) 100 mg DAILY PO Last administered on 08:29; Start 06/08/17 at 18:00 Lorazepam (Ativan) 2 mg PRN Q4HRS PRN IV ANXIETY / AGITATION Last administered on 06/09/17 00:49; Start 06/08/17 at 17:45 Lisinopril (Prinivil) 40 mg DAILY PO ; Start 06/08/17 at 18:00; Stop 06/08/17 at 18:45; Status DC Lisinopril (Prinivil) 20 mg DAILY PO ; Start 06/09/17 at 09:00; Stop 06/11/17 at 17:13; Status DC Zolpidem Tartrate (Ambien) 5 mg PRN QHS PRN PO INSOMNIA Last administered on 22:43; Start 06/08/17 at 20:45 Vitamin B Complex (Folbic Tablet) 1 tab DAILY PO Last administered on 08:29; Start 06/09/17 at 10:30 Cyanocobalamin (Vitamin B-12) 1,000 mcg 1X ONCE IM Last administered on 13:46; Start 06/09/17 at 10:45; Stop 06/09/17 at 10:46; Status DC Regadenoson (Lexiscan) 0.4 mg 1X ONCE IV ; Start 06/10/17 at 08:45; Stop at 08:46; Status DC Regadenoson (Lexiscan) 0.4 mg STK-MED ONCE IV ; Start 06/10/17 at 09:24; Stop at 09:25; Status DC Regadenoson (Lexiscan) 0.4 mg STK-MED ONCE IV ; Start 06/10/17 at 09:24; Stop at 10:04; Status DC Iohexol (Omnipaque 300 Mg/ml) 100 ml STK-MED ONCE .ROUTE ; Start 06/11/17 at 12: 54; Stop 06/11/17 at 12:55; Status DC Lidocaine HCl 20 ml STK-MED ONCE .ROUTE ; Start 06/11/17 at 12:55; Stop at 12:56; Status DC Heparin Sodium/ Sodium Chloride 500 ml @ As Directed STK-MED ONCE .ROUTE ; Start 06/11/17 at 12:55; Stop 06/11/17 at 12:56; Status DC Midazolam HCl (Versed) 2 mg STK-MED ONCE .ROUTE ; Start 06/11/17 at 13:23; Stop 06/11/17 at 13:24; Status DC Fentanyl Citrate (Fentanyl 2ml Vial) 100 mcg STK-MED ONCE .ROUTE ; Start at 13:23; Stop 06/11/17 at 13:24; Status DC Heparin Sodium/ Sodium Chloride 1,000 unit 1X ONCE IART Last administered on 13:52; Start 06/11/17 at 13:45; Stop 06/11/17 at 13:46; Status DC Midazolam HCl (Versed) 2 mg 1X ONCE IV Last administered on 06/11/17 13:52; Start 06/11/17 at 13:45; Stop 06/11/17 at 13:46; Status DC Fentanyl Citrate (Fentanyl 2ml Vial) 100 mcg 1X ONCE IV Last administered on 13:52; Start 06/11/17 at 13:45; Stop 06/11/17 at 13:46; Status DC Iohexol (Omnipaque 300 Mg/ml) 100 ml 1X ONCE IART Last administered on 13:51; Start 06/11/17 at 13:45; Stop 06/11/17 at 13:46; Status DC Lidocaine HCl 20 ml 1X ONCE IJ Last administered on 06/11/17 13:51; Start at 13:45; Stop 06/11/17 at 13:46; Status DC Metoprolol Tartrate (Lopressor) 25 mg BID PO Last administered on 06/11/17 20: 27; Start 06/11/17 at 21:00 Iohexol (Omnipaque 300 Mg/ml) 75 ml 1X ONCE IV Last administered on 06/12/17 08:12; Start 06/12/17 at 08:30; Stop 06/12/17 at 08:31; Status DC Info (Do NOT chart on this entry -- for MONITORING) 1 each PRN DAILY PRN MC SEE COMMENTS; Start 06/12/17 at 08:15; Stop 06/14/17 at 08:14 Active Scripts Active Reported [none] Vitals/I & O Vital Sign - Last 24 Hours 06/11/17 06/11/17 06/11/17 06/11/17 13:52 13:53 14:00 14:15 Pulse 71 57 59 Resp 14 14 B/P (MAP) 161/91 (114) 162/90 (114) Pulse Ox 100 100 O2 Delivery Nasal Cannula Nasal Cannula O2 Flow Rate 2.0 2.0 06/11/17 06/11/17 06/11/17 06/11/17 14:30 14:45 15:15 15:45 Pulse 56 56 58 58 B/P (MAP) 145/87 (106) 146/81 (102) 151/77 (101) 153/93 (113) 06/11/17 06/11/17 06/11/17 06/11/17 16:45 17:45 19:00 20:00 Temp 97.9 97.9 Pulse 56 56 67 Resp 18 B/P (MAP) 155/84 (107) 145/68 (93) 147/68 (94) Pulse Ox 96 O2 Delivery Room Air Room Air 06/11/17 06/11/17 06/12/17 06/12/17 20:27 23:00 03:00 07:00 Temp 98.1 97.9 97.9 98.1 97.9 97.9 Pulse 67 67 65 56 Resp 16 16 20 B/P (MAP) 147/68 165/91 (115) 135/83 (100) 121/65 (83) Pulse Ox 96 99 98 O2 Delivery Room Air Room Air Room Air 06/12/17 06/12/17 06/12/17 08:00 08:15 11:39 Temp 98.1 98.1 Pulse 59 Resp 20 B/P (MAP) 129/70 (89) Pulse Ox 99 O2 Delivery Room Air Room Air Room Air MAGDALENE CRUZ MD Jun 12, 2017 13:43
--- NOTE | 2017-06-12 13:46 | PDOC ---
PROGRESS NOTES Subjective Subjective No chest pains. Objective Objective Vital Signs Date Time Temp Pulse Resp B/P (MAP) Pulse Ox O2 Delivery O2 Flow Rate FiO2 06/12/17 11:39 98.1 59 20 129/70 (89) 99 Room Air 98.1 06/11/17 13:53 2.0 Physical Exam Physical Exam No significant changes in cardiac exam Assessment Assessment Workup in progress. Will do a REBEKAH on Wednesday. Problems Medical Problems: (1) Chest pain Status: Acute (2) Shortness of breath Status: Acute Comment Review of Relevant I have reviewed the following items hcetan (where applicable) has been applied. Labs Laboratory Tests Test 06/11/17 17:20 06/12/17 05:26 Activated Partial Thromboplast Time 31 SEC (24-38) White Blood Count 5.4 x10^3/uL (4.0-11.0) Red Blood Count 4.46 x10^6/uL (4.30-5.70) Hemoglobin 15.0 g/dL (13.0-17.5) Hematocrit 42.8 % (39.0-53.0) Mean Corpuscular Volume 96 fL (79-100) Mean Corpuscular Hemoglobin 34 pg (25-35) Mean Corpuscular Hemoglobin Concent 35 g/dL (31-37) Red Cell Distribution Width 12.9 % (11.5-14.5) Platelet Count 235 x10^3/uL (140-400) Neutrophils (%) (Auto) 53 % (31-73) Lymphocytes (%) (Auto) 25 % (24-48) Monocytes (%) (Auto) 16 % (0-9) Eosinophils (%) (Auto) 5 % (0-3) Basophils (%) (Auto) 1 % (0-3) Neutrophils # (Auto) 2.9 x10^3uL (1.8-7.7) Lymphocytes # (Auto) 1.4 x10^3/uL (1.0-4.8) Monocytes # (Auto) 0.9 x10^3/uL (0.0-1.1) Eosinophils # (Auto) 0.3 x10^3/uL (0.0-0.7) Basophils # (Auto) 0.1 x10^3/uL (0.0-0.2) Sodium Level 139 mmol/L (136-145) Potassium Level 3.9 mmol/L (3.5-5.1) Chloride Level 102 mmol/L (98-107) Carbon Dioxide Level 30 mmol/L (21-32) Anion Gap 7 (6-14) Blood Urea Nitrogen 12 mg/dL (8-26) Creatinine 1.0 mg/dL (0.7-1.3) Estimated GFR (Cockcroft-Gault) 90.7 Glucose Level 101 mg/dL (70-99) Calcium Level 8.9 mg/dL (8.5-10.1) Laboratory Tests Test 06/11/17 17:20 06/12/17 05:26 Activated Partial Thromboplast Time 31 SEC (24-38) White Blood Count 5.4 x10^3/uL (4.0-11.0) Red Blood Count 4.46 x10^6/uL (4.30-5.70) Hemoglobin 15.0 g/dL (13.0-17.5) Hematocrit 42.8 % (39.0-53.0) Mean Corpuscular Volume 96 fL (79-100) Mean Corpuscular Hemoglobin 34 pg (25-35) Mean Corpuscular Hemoglobin Concent 35 g/dL (31-37) Red Cell Distribution Width 12.9 % (11.5-14.5) Platelet Count 235 x10^3/uL (140-400) Neutrophils (%) (Auto) 53 % (31-73) Lymphocytes (%) (Auto) 25 % (24-48) Monocytes (%) (Auto) 16 % (0-9) Eosinophils (%) (Auto) 5 % (0-3) Basophils (%) (Auto) 1 % (0-3) Neutrophils # (Auto) 2.9 x10^3uL (1.8-7.7) Lymphocytes # (Auto) 1.4 x10^3/uL (1.0-4.8) Monocytes # (Auto) 0.9 x10^3/uL (0.0-1.1) Eosinophils # (Auto) 0.3 x10^3/uL (0.0-0.7) Basophils # (Auto) 0.1 x10^3/uL (0.0-0.2) Sodium Level 139 mmol/L (136-145) Potassium Level 3.9 mmol/L (3.5-5.1) Chloride Level 102 mmol/L (98-107) Carbon Dioxide Level 30 mmol/L (21-32) Anion Gap 7 (6-14) Blood Urea Nitrogen 12 mg/dL (8-26) Creatinine 1.0 mg/dL (0.7-1.3) Estimated GFR (Cockcroft-Gault) 90.7 Glucose Level 101 mg/dL (70-99) Calcium Level 8.9 mg/dL (8.5-10.1) Medications Current Medications Ondansetron HCl (Zofran) 4 mg PRN Q8HRS PRN IV NAUSEA/VOMITING; Start 06/08/17 at 16:45; Stop 06/09/17 at 14:42; Status DC Morphine Sulfate 2 mg PRN Q2HR PRN IV PAIN; Start 06/08/17 at 16:45; Stop 06/09 at 14:42; Status DC Acetaminophen (Tylenol) 650 mg PRN Q6HRS PRN PO FEVER; Start 06/08/17 at 17:45 Ondansetron HCl (Zofran) 4 mg PRN Q6HRS PRN IV NAUSEA/VOMITING; Start 06/08/17 at 17:45 Morphine Sulfate 2 mg PRN Q2HR PRN IV PAIN; Start 06/08/17 at 17:45 Tramadol HCl (Ultram) 50 mg PRN Q6HRS PRN PO PAIN MILD TO MOD; Start 06/08/17 at 17:45 Hydralazine HCl (Apresoline) 10 mg PRN Q4HRS PRN IVP ELEVATED BP, SEE COMMENTS ; Start 06/08/17 at 17:45 Docusate Sodium (Colace) 100 mg PRN DAILY PRN PO CONSTIPATION; Start 06/08/17 at 17:45 Albuterol Sulfate (Ventolin Neb Soln) 2.5 mg PRN Q4HRS PRN NEB SHORTNESS OF BREATH; Start 06/08/17 at 17:45 Enoxaparin Sodium (Lovenox 40mg Syringe) 40 mg Q24H SQ Last administered on 19:41; Start 06/08/17 at 18:00 Folic Acid (Folic Acid) 1 mg DAILY PO Last administered on 06/12/17 08:29; Start 06/08/17 at 18:00 Thiamine Mononitrate (Vitamin B-1) 100 mg DAILY PO Last administered on 08:29; Start 06/08/17 at 18:00 Lorazepam (Ativan) 2 mg PRN Q4HRS PRN IV ANXIETY / AGITATION Last administered on 06/09/17 00:49; Start 06/08/17 at 17:45 Lisinopril (Prinivil) 40 mg DAILY PO ; Start 06/08/17 at 18:00; Stop 06/08/17 at 18:45; Status DC Lisinopril (Prinivil) 20 mg DAILY PO ; Start 06/09/17 at 09:00; Stop 06/11/17 at 17:13; Status DC Zolpidem Tartrate (Ambien) 5 mg PRN QHS PRN PO INSOMNIA Last administered on 22:43; Start 06/08/17 at 20:45 Vitamin B Complex (Folbic Tablet) 1 tab DAILY PO Last administered on 08:29; Start 06/09/17 at 10:30 Cyanocobalamin (Vitamin B-12) 1,000 mcg 1X ONCE IM Last administered on 13:46; Start 06/09/17 at 10:45; Stop 06/09/17 at 10:46; Status DC Regadenoson (Lexiscan) 0.4 mg 1X ONCE IV ; Start 06/10/17 at 08:45; Stop at 08:46; Status DC Regadenoson (Lexiscan) 0.4 mg STK-MED ONCE IV ; Start 06/10/17 at 09:24; Stop at 09:25; Status DC Regadenoson (Lexiscan) 0.4 mg STK-MED ONCE IV ; Start 06/10/17 at 09:24; Stop at 10:04; Status DC Iohexol (Omnipaque 300 Mg/ml) 100 ml STK-MED ONCE .ROUTE ; Start 06/11/17 at 12: 54; Stop 06/11/17 at 12:55; Status DC Lidocaine HCl 20 ml STK-MED ONCE .ROUTE ; Start 06/11/17 at 12:55; Stop at 12:56; Status DC Heparin Sodium/ Sodium Chloride 500 ml @ As Directed STK-MED ONCE .ROUTE ; Start 06/11/17 at 12:55; Stop 06/11/17 at 12:56; Status DC Midazolam HCl (Versed) 2 mg STK-MED ONCE .ROUTE ; Start 06/11/17 at 13:23; Stop 06/11/17 at 13:24; Status DC Fentanyl Citrate (Fentanyl 2ml Vial) 100 mcg STK-MED ONCE .ROUTE ; Start at 13:23; Stop 06/11/17 at 13:24; Status DC Heparin Sodium/ Sodium Chloride 1,000 unit 1X ONCE IART Last administered on 13:52; Start 06/11/17 at 13:45; Stop 06/11/17 at 13:46; Status DC Midazolam HCl (Versed) 2 mg 1X ONCE IV Last administered on 06/11/17 13:52; Start 06/11/17 at 13:45; Stop 06/11/17 at 13:46; Status DC Fentanyl Citrate (Fentanyl 2ml Vial) 100 mcg 1X ONCE IV Last administered on 13:52; Start 06/11/17 at 13:45; Stop 06/11/17 at 13:46; Status DC Iohexol (Omnipaque 300 Mg/ml) 100 ml 1X ONCE IART Last administered on 13:51; Start 06/11/17 at 13:45; Stop 06/11/17 at 13:46; Status DC Lidocaine HCl 20 ml 1X ONCE IJ Last administered on 06/11/17 13:51; Start at 13:45; Stop 06/11/17 at 13:46; Status DC Metoprolol Tartrate (Lopressor) 25 mg BID PO Last administered on 06/11/17 20: 27; Start 06/11/17 at 21:00 Iohexol (Omnipaque 300 Mg/ml) 75 ml 1X ONCE IV Last administered on 06/12/17 08:12; Start 06/12/17 at 08:30; Stop 06/12/17 at 08:31; Status DC Info (Do NOT chart on this entry -- for MONITORING) 1 each PRN DAILY PRN MC SEE COMMENTS; Start 06/12/17 at 08:15; Stop 06/14/17 at 08:14 Active Scripts Active Reported [none] Vitals/I & O Vital Sign - Last 24 Hours 06/11/17 06/11/17 06/11/17 06/11/17 13:52 13:53 14:00 14:15 Pulse 71 57 59 Resp 14 14 B/P (MAP) 161/91 (114) 162/90 (114) Pulse Ox 100 100 O2 Delivery Nasal Cannula Nasal Cannula O2 Flow Rate 2.0 2.0 06/11/17 06/11/17 06/11/17 06/11/17 14:30 14:45 15:15 15:45 Pulse 56 56 58 58 B/P (MAP) 145/87 (106) 146/81 (102) 151/77 (101) 153/93 (113) 06/11/17 06/11/17 06/11/17 06/11/17 16:45 17:45 19:00 20:00 Temp 97.9 97.9 Pulse 56 56 67 Resp 18 B/P (MAP) 155/84 (107) 145/68 (93) 147/68 (94) Pulse Ox 96 O2 Delivery Room Air Room Air 06/11/17 06/11/17 06/12/17 06/12/17 20:27 23:00 03:00 07:00 Temp 98.1 97.9 97.9 98.1 97.9 97.9 Pulse 67 67 65 56 Resp 16 16 20 B/P (MAP) 147/68 165/91 (115) 135/83 (100) 121/65 (83) Pulse Ox 96 99 98 O2 Delivery Room Air Room Air Room Air 06/12/17 06/12/17 06/12/17 08:00 08:15 11:39 Temp 98.1 98.1 Pulse 59 Resp 20 B/P (MAP) 129/70 (89) Pulse Ox 99 O2 Delivery Room Air Room Air Room Air RICH JEREZ MD Jun 12, 2017 13:46
[2017-06-12] MEDS ORDERED: LIDOCAINE 2% TOPICAL JELLY 5GM TUBE. TP ONE (14:00)
[2017-06-12] MEDS ORDERED: BENZOCAINE ONE 20% MUCOSAL SPRAY. MM (14:00)
[2017-06-12] MEDS ORDERED: LIDOCAINE 2% VISCOUS 15 ML SOLUTION. MM ONE (14:00)
[2017-06-12 15:12] VITALS: BP 124/61
[2017-06-12] MEDS: ENOXAPARIN 40 MG/0.4 ML SYRINGE. SQ SCH (18:00)
[2017-06-12 19:00] VITALS: BP 140/82
[2017-06-12 22:58] VITALS: BP 124/63
[2017-06-13 03:40] VITALS: BP 124/74
[2017-06-13 05:18] LABS: HEMOGLOBIN 15.3 g/dL (13.0-17.5); RED BLOOD COUNT 4.56 x10^6/uL (4.30-5.70); WHITE BLOOD COUNT 5.4 x10^3/uL (4.0-11.0)
[2017-06-13 05:19] LABS: BASO # 0.1 x10^3/uL (0.0-0.2); BASO % 1 % (0-3); EOS % 5 % (0-3); HEMATOCRIT 44.1 % (39.0-53.0); LYMPH # 1.3 x10^3/uL (1.0-4.8); LYMPH % 24 % (24-48); MEAN CORPUSCULAR HEMOGLOBIN 34 pg (25-35); MEAN CORPUSCULAR HGB CONC 35 g/dL (31-37); MEAN CORPUSCULAR VOLUME 97 fL (79-100); MONO % 17 % (0-9); NEUT % 53 % (31-73); PLATELET COUNT 233 x10^3/uL (140-400); RED CELL DISTRIBUTION WIDTH 12.7 % (11.5-14.5)
[2017-06-13 05:25] LABS: CALCIUM 9.1 mg/dL (8.5-10.1); GFR 90.7; POTASSIUM 4.3 mmol/L (3.5-5.1)
[2017-06-13 07:20] VITALS: BP 120/60
[2017-06-13] MEDS: FOLIC ACID 1 MG TABLET. PO SCH (08:49)
[2017-06-13] MEDS: VITAMIN B12,B9,B6 COMPLEX 1 TABLET. PO SCH (08:49)
[2017-06-13] MEDS: THIAMINE 100 MG TABLET. PO SCH (08:50)
[2017-06-13] MEDS: METOPROLOL TART IMMED RELEASE 25 MG TABLET. PO SCH ×2 (08:50→20:53)
[2017-06-13] MEDS: ENOXAPARIN 40 MG/0.4 ML SYRINGE. SQ SCH (08:51)
[2017-06-13 11:00] VITALS: BP 124/68
--- NOTE | 2017-06-13 13:56 | PDOC ---
PROGRESS NOTES Chief Complaint Chief Complaint exertional dyspnea with CHF likely chest pain with dyspnea chronic combined systolic and diastolic CHF,, est EF 40% on MPI H/O CAD 2013 with 1 stent at obtuse marginal branch HTN poor control, noncompliant with emds alcohol abuse d/o, prior tobaccoism leg weakness, unsteady gait and peripheral neuropathy plan; fu with card, CT MPI + with large defect cath showed multiple vessle dz CT recommend CABG ON Wednesday, but pt told me maybe cont current meds on metoprolol chest lower ext US, carotid US, chest CT as per CT History of Present Illness History of Present Illness ROS : no fever, chills, chest pain exertional sob no chest pain told ME that CT told him maybe or maybe not CABG Vitals Vitals Vital Signs Date Time Temp Pulse Resp B/P (MAP) Pulse Ox O2 Delivery O2 Flow Rate FiO2 06/13/17 11:00 98.1 68 18 124/68 (86) 99 Room Air 98.1 Physical Exam General: Alert, Oriented X3, No acute distress Heart: Regular rate, Normal S1, Normal S2 Lungs: Clear Abdomen: Soft, No tenderness Extremities: No edema Skin: No significant lesion Labs LABS Laboratory Tests Test 06/13/17 03:05 White Blood Count 5.4 x10^3/uL (4.0-11.0) Red Blood Count 4.56 x10^6/uL (4.30-5.70) Hemoglobin 15.3 g/dL (13.0-17.5) Hematocrit 44.1 % (39.0-53.0) Mean Corpuscular Volume 97 fL (79-100) Mean Corpuscular Hemoglobin 34 pg (25-35) Mean Corpuscular Hemoglobin Concent 35 g/dL (31-37) Red Cell Distribution Width 12.7 % (11.5-14.5) Platelet Count 233 x10^3/uL (140-400) Neutrophils (%) (Auto) 53 % (31-73) Lymphocytes (%) (Auto) 24 % (24-48) Monocytes (%) (Auto) 17 % (0-9) Eosinophils (%) (Auto) 5 % (0-3) Basophils (%) (Auto) 1 % (0-3) Neutrophils # (Auto) 2.9 x10^3uL (1.8-7.7) Lymphocytes # (Auto) 1.3 x10^3/uL (1.0-4.8) Monocytes # (Auto) 0.9 x10^3/uL (0.0-1.1) Eosinophils # (Auto) 0.3 x10^3/uL (0.0-0.7) Basophils # (Auto) 0.1 x10^3/uL (0.0-0.2) Sodium Level 139 mmol/L (136-145) Potassium Level 4.3 mmol/L (3.5-5.1) Chloride Level 102 mmol/L (98-107) Carbon Dioxide Level 32 mmol/L (21-32) Anion Gap 5 (6-14) Blood Urea Nitrogen 13 mg/dL (8-26) Creatinine 1.0 mg/dL (0.7-1.3) Estimated GFR (Cockcroft-Gault) 90.7 Glucose Level 99 mg/dL (70-99) Calcium Level 9.1 mg/dL (8.5-10.1) Assessment and Plan Assessmemt and Plan Problems Medical Problems: (1) Chest pain Status: Acute (2) Shortness of breath Status: Acute Problems: Comment Review of Relevant I have reviewed the following items chetan (where applicable) has been applied. Labs Laboratory Tests Test 06/11/17 17:20 06/12/17 05:26 06/13/17 03:05 Activated Partial Thromboplast Time 31 SEC (24-38) White Blood Count 5.4 x10^3/uL (4.0-11.0) 5.4 x10^3/uL (4.0-11.0) Red Blood Count 4.46 x10^6/uL (4.30-5.70) 4.56 x10^6/uL (4.30-5.70) Hemoglobin 15.0 g/dL (13.0-17.5) 15.3 g/dL (13.0-17.5) Hematocrit 42.8 % (39.0-53.0) 44.1 % (39.0-53.0) Mean Corpuscular Volume 96 fL (79-100) 97 fL (79-100) Mean Corpuscular Hemoglobin 34 pg (25-35) 34 pg (25-35) Mean Corpuscular Hemoglobin Concent 35 g/dL (31-37) 35 g/dL (31-37) Red Cell Distribution Width 12.9 % (11.5-14.5) 12.7 % (11.5-14.5) Platelet Count 235 x10^3/uL (140-400) 233 x10^3/uL (140-400) Neutrophils (%) (Auto) 53 % (31-73) 53 % (31-73) Lymphocytes (%) (Auto) 25 % (24-48) 24 % (24-48) Monocytes (%) (Auto) 16 % (0-9) 17 % (0-9) Eosinophils (%) (Auto) 5 % (0-3) 5 % (0-3) Basophils (%) (Auto) 1 % (0-3) 1 % (0-3) Neutrophils # (Auto) 2.9 x10^3uL (1.8-7.7) 2.9 x10^3uL (1.8-7.7) Lymphocytes # (Auto) 1.4 x10^3/uL (1.0-4.8) 1.3 x10^3/uL (1.0-4.8) Monocytes # (Auto) 0.9 x10^3/uL (0.0-1.1) 0.9 x10^3/uL (0.0-1.1) Eosinophils # (Auto) 0.3 x10^3/uL (0.0-0.7) 0.3 x10^3/uL (0.0-0.7) Basophils # (Auto) 0.1 x10^3/uL (0.0-0.2) 0.1 x10^3/uL (0.0-0.2) Sodium Level 139 mmol/L (136-145) 139 mmol/L (136-145) Potassium Level 3.9 mmol/L (3.5-5.1) 4.3 mmol/L (3.5-5.1) Chloride Level 102 mmol/L (98-107) 102 mmol/L (98-107) Carbon Dioxide Level 30 mmol/L (21-32) 32 mmol/L (21-32) Anion Gap 7 (6-14) 5 (6-14) Blood Urea Nitrogen 12 mg/dL (8-26) 13 mg/dL (8-26) Creatinine 1.0 mg/dL (0.7-1.3) 1.0 mg/dL (0.7-1.3) Estimated GFR (Cockcroft-Gault) 90.7 90.7 Glucose Level 101 mg/dL (70-99) 99 mg/dL (70-99) Calcium Level 8.9 mg/dL (8.5-10.1) 9.1 mg/dL (8.5-10.1) Laboratory Tests Test 06/13/17 03:05 White Blood Count 5.4 x10^3/uL (4.0-11.0) Red Blood Count 4.56 x10^6/uL (4.30-5.70) Hemoglobin 15.3 g/dL (13.0-17.5) Hematocrit 44.1 % (39.0-53.0) Mean Corpuscular Volume 97 fL (79-100) Mean Corpuscular Hemoglobin 34 pg (25-35) Mean Corpuscular Hemoglobin Concent 35 g/dL (31-37) Red Cell Distribution Width 12.7 % (11.5-14.5) Platelet Count 233 x10^3/uL (140-400) Neutrophils (%) (Auto) 53 % (31-73) Lymphocytes (%) (Auto) 24 % (24-48) Monocytes (%) (Auto) 17 % (0-9) Eosinophils (%) (Auto) 5 % (0-3) Basophils (%) (Auto) 1 % (0-3) Neutrophils # (Auto) 2.9 x10^3uL (1.8-7.7) Lymphocytes # (Auto) 1.3 x10^3/uL (1.0-4.8) Monocytes # (Auto) 0.9 x10^3/uL (0.0-1.1) Eosinophils # (Auto) 0.3 x10^3/uL (0.0-0.7) Basophils # (Auto) 0.1 x10^3/uL (0.0-0.2) Sodium Level 139 mmol/L (136-145) Potassium Level 4.3 mmol/L (3.5-5.1) Chloride Level 102 mmol/L (98-107) Carbon Dioxide Level 32 mmol/L (21-32) Anion Gap 5 (6-14) Blood Urea Nitrogen 13 mg/dL (8-26) Creatinine 1.0 mg/dL (0.7-1.3) Estimated GFR (Cockcroft-Gault) 90.7 Glucose Level 99 mg/dL (70-99) Calcium Level 9.1 mg/dL (8.5-10.1) Medications Current Medications Ondansetron HCl (Zofran) 4 mg PRN Q8HRS PRN IV NAUSEA/VOMITING; Start 06/08/17 at 16:45; Stop 06/09/17 at 14:42; Status DC Morphine Sulfate 2 mg PRN Q2HR PRN IV PAIN; Start 06/08/17 at 16:45; Stop 06/09 at 14:42; Status DC Acetaminophen (Tylenol) 650 mg PRN Q6HRS PRN PO FEVER; Start 06/08/17 at 17:45 Ondansetron HCl (Zofran) 4 mg PRN Q6HRS PRN IV NAUSEA/VOMITING; Start 06/08/17 at 17:45 Morphine Sulfate 2 mg PRN Q2HR PRN IV PAIN; Start 06/08/17 at 17:45 Tramadol HCl (Ultram) 50 mg PRN Q6HRS PRN PO PAIN MILD TO MOD; Start 06/08/17 at 17:45 Hydralazine HCl (Apresoline) 10 mg PRN Q4HRS PRN IVP ELEVATED BP, SEE COMMENTS ; Start 06/08/17 at 17:45 Docusate Sodium (Colace) 100 mg PRN DAILY PRN PO CONSTIPATION; Start 06/08/17 at 17:45 Albuterol Sulfate (Ventolin Neb Soln) 2.5 mg PRN Q4HRS PRN NEB SHORTNESS OF BREATH; Start 06/08/17 at 17:45 Enoxaparin Sodium (Lovenox 40mg Syringe) 40 mg Q24H SQ Last administered on 19:41; Start 06/08/17 at 18:00 Folic Acid (Folic Acid) 1 mg DAILY PO Last administered on 06/13/17 08:49; Start 06/08/17 at 18:00 Thiamine Mononitrate (Vitamin B-1) 100 mg DAILY PO Last administered on 08:50; Start 06/08/17 at 18:00 Lorazepam (Ativan) 2 mg PRN Q4HRS PRN IV ANXIETY / AGITATION Last administered on 06/09/17 00:49; Start 06/08/17 at 17:45 Lisinopril (Prinivil) 40 mg DAILY PO ; Start 06/08/17 at 18:00; Stop 06/08/17 at 18:45; Status DC Lisinopril (Prinivil) 20 mg DAILY PO ; Start 06/09/17 at 09:00; Stop 06/11/17 at 17:13; Status DC Zolpidem Tartrate (Ambien) 5 mg PRN QHS PRN PO INSOMNIA Last administered on 22:43; Start 06/08/17 at 20:45 Vitamin B Complex (Folbic Tablet) 1 tab DAILY PO Last administered on 08:49; Start 06/09/17 at 10:30 Cyanocobalamin (Vitamin B-12) 1,000 mcg 1X ONCE IM Last administered on 13:46; Start 06/09/17 at 10:45; Stop 06/09/17 at 10:46; Status DC Regadenoson (Lexiscan) 0.4 mg 1X ONCE IV ; Start 06/10/17 at 08:45; Stop at 08:46; Status DC Regadenoson (Lexiscan) 0.4 mg STK-MED ONCE IV ; Start 06/10/17 at 09:24; Stop at 09:25; Status DC Regadenoson (Lexiscan) 0.4 mg STK-MED ONCE IV ; Start 06/10/17 at 09:24; Stop at 10:04; Status DC Iohexol (Omnipaque 300 Mg/ml) 100 ml STK-MED ONCE .ROUTE ; Start 06/11/17 at 12: 54; Stop 06/11/17 at 12:55; Status DC Lidocaine HCl 20 ml STK-MED ONCE .ROUTE ; Start 06/11/17 at 12:55; Stop at 12:56; Status DC Heparin Sodium/ Sodium Chloride 500 ml @ As Directed STK-MED ONCE .ROUTE ; Start 06/11/17 at 12:55; Stop 06/11/17 at 12:56; Status DC Midazolam HCl (Versed) 2 mg STK-MED ONCE .ROUTE ; Start 06/11/17 at 13:23; Stop 06/11/17 at 13:24; Status DC Fentanyl Citrate (Fentanyl 2ml Vial) 100 mcg STK-MED ONCE .ROUTE ; Start at 13:23; Stop 06/11/17 at 13:24; Status DC Heparin Sodium/ Sodium Chloride 1,000 unit 1X ONCE IART Last administered on 13:52; Start 06/11/17 at 13:45; Stop 06/11/17 at 13:46; Status DC Midazolam HCl (Versed) 2 mg 1X ONCE IV Last administered on 06/11/17 13:52; Start 06/11/17 at 13:45; Stop 06/11/17 at 13:46; Status DC Fentanyl Citrate (Fentanyl 2ml Vial) 100 mcg 1X ONCE IV Last administered on 13:52; Start 06/11/17 at 13:45; Stop 06/11/17 at 13:46; Status DC Iohexol (Omnipaque 300 Mg/ml) 100 ml 1X ONCE IART Last administered on 13:51; Start 06/11/17 at 13:45; Stop 06/11/17 at 13:46; Status DC Lidocaine HCl 20 ml 1X ONCE IJ Last administered on 06/11/17 13:51; Start at 13:45; Stop 06/11/17 at 13:46; Status DC Metoprolol Tartrate (Lopressor) 25 mg BID PO Last administered on 06/13/17 08: 50; Start 06/11/17 at 21:00 Iohexol (Omnipaque 300 Mg/ml) 75 ml 1X ONCE IV Last administered on 06/12/17 08:12; Start 06/12/17 at 08:30; Stop 06/12/17 at 08:31; Status DC Info (Do NOT chart on this entry -- for MONITORING) 1 each PRN DAILY PRN MC SEE COMMENTS; Start 06/12/17 at 08:15; Stop 06/14/17 at 08:14 Lidocaine HCl (Xylocaine 2% Topical 5gm Tube) 1 grant 1X ONCE TP ; Start at 14:00; Stop 06/12/17 at 14:01; Status DC Lidocaine HCl (Viscous Lidocaine) 15 ml 1X ONCE MM ; Start 06/12/17 at 14:00; Stop 06/12/17 at 14:01; Status Cancel Benzocaine (Hurricaine One) 3 spray 1X ONCE MM ; Start 06/12/17 at 14:00; Stop 06/12/17 at 14:01; Status DC Lidocaine HCl (Viscous Lidocaine) 15 ml 1X PRN PRN MM FOR REBEKAH; Start 06/14/17 at 09:00; Stop 06/14/17 at 18:00 Benzocaine (Hurricaine One) 3 spray 1X ONCE MM ; Start 06/14/17 at 07:00; Stop 06/14/17 at 07:01 Lidocaine HCl (Xylocaine 2% Topical 5gm Tube) 1 grant 1X ONCE TP ; Start at 07:00; Stop 06/14/17 at 07:01 Active Scripts Active Reported [none] Vitals/I & O Vital Sign - Last 24 Hours 06/12/17 06/12/17 06/12/17 06/12/17 15:12 19:00 20:00 22:17 Temp 98.1 97.9 98.1 97.9 Pulse 69 57 57 Resp 18 18 B/P (MAP) 124/61 (82) 140/82 (101) 140/82 Pulse Ox 98 O2 Delivery Room Air Room Air Room Air 06/12/17 06/13/17 06/13/17 06/13/17 22:58 03:40 07:20 08:03 Temp 98.2 97.7 97.8 98.2 97.7 97.8 Pulse 58 57 62 Resp 16 18 20 B/P (MAP) 124/63 (83) 124/74 (91) 120/60 (80) Pulse Ox 100 99 99 O2 Delivery Room Air Room Air Room Air Room Air 06/13/17 06/13/17 08:50 11:00 Temp 98.1 98.1 Pulse 62 68 Resp 18 B/P (MAP) 120/60 124/68 (86) Pulse Ox 99 O2 Delivery Room Air MADDI WIGGINS MD Jun 13, 2017 13:56
[2017-06-13 15:00] VITALS: BP 123/71
--- NOTE | 2017-06-13 15:01 | PDOC ---
PROGRESS NOTES Subjective Subjective We discussed the situation and the test tomorrow Objective Objective Vital Signs Date Time Temp Pulse Resp B/P (MAP) Pulse Ox O2 Delivery O2 Flow Rate FiO2 06/13/17 11:00 98.1 68 18 124/68 (86) 99 Room Air 98.1 06/11/17 13:53 2.0 Physical Exam Physical Exam No significant changes in cardiac exam Assessment Assessment Will do the REBEKAH in the morning and then depending on the results we will decide about a treatment plan. Problems Medical Problems: (1) Chest pain Status: Acute (2) Shortness of breath Status: Acute Comment Review of Relevant I have reviewed the following items chetan (where applicable) has been applied. Labs Laboratory Tests Test 06/11/17 17:20 06/12/17 05:26 06/13/17 03:05 Activated Partial Thromboplast Time 31 SEC (24-38) White Blood Count 5.4 x10^3/uL (4.0-11.0) 5.4 x10^3/uL (4.0-11.0) Red Blood Count 4.46 x10^6/uL (4.30-5.70) 4.56 x10^6/uL (4.30-5.70) Hemoglobin 15.0 g/dL (13.0-17.5) 15.3 g/dL (13.0-17.5) Hematocrit 42.8 % (39.0-53.0) 44.1 % (39.0-53.0) Mean Corpuscular Volume 96 fL (79-100) 97 fL (79-100) Mean Corpuscular Hemoglobin 34 pg (25-35) 34 pg (25-35) Mean Corpuscular Hemoglobin Concent 35 g/dL (31-37) 35 g/dL (31-37) Red Cell Distribution Width 12.9 % (11.5-14.5) 12.7 % (11.5-14.5) Platelet Count 235 x10^3/uL (140-400) 233 x10^3/uL (140-400) Neutrophils (%) (Auto) 53 % (31-73) 53 % (31-73) Lymphocytes (%) (Auto) 25 % (24-48) 24 % (24-48) Monocytes (%) (Auto) 16 % (0-9) 17 % (0-9) Eosinophils (%) (Auto) 5 % (0-3) 5 % (0-3) Basophils (%) (Auto) 1 % (0-3) 1 % (0-3) Neutrophils # (Auto) 2.9 x10^3uL (1.8-7.7) 2.9 x10^3uL (1.8-7.7) Lymphocytes # (Auto) 1.4 x10^3/uL (1.0-4.8) 1.3 x10^3/uL (1.0-4.8) Monocytes # (Auto) 0.9 x10^3/uL (0.0-1.1) 0.9 x10^3/uL (0.0-1.1) Eosinophils # (Auto) 0.3 x10^3/uL (0.0-0.7) 0.3 x10^3/uL (0.0-0.7) Basophils # (Auto) 0.1 x10^3/uL (0.0-0.2) 0.1 x10^3/uL (0.0-0.2) Sodium Level 139 mmol/L (136-145) 139 mmol/L (136-145) Potassium Level 3.9 mmol/L (3.5-5.1) 4.3 mmol/L (3.5-5.1) Chloride Level 102 mmol/L (98-107) 102 mmol/L (98-107) Carbon Dioxide Level 30 mmol/L (21-32) 32 mmol/L (21-32) Anion Gap 7 (6-14) 5 (6-14) Blood Urea Nitrogen 12 mg/dL (8-26) 13 mg/dL (8-26) Creatinine 1.0 mg/dL (0.7-1.3) 1.0 mg/dL (0.7-1.3) Estimated GFR (Cockcroft-Gault) 90.7 90.7 Glucose Level 101 mg/dL (70-99) 99 mg/dL (70-99) Calcium Level 8.9 mg/dL (8.5-10.1) 9.1 mg/dL (8.5-10.1) Laboratory Tests Test 06/13/17 03:05 White Blood Count 5.4 x10^3/uL (4.0-11.0) Red Blood Count 4.56 x10^6/uL (4.30-5.70) Hemoglobin 15.3 g/dL (13.0-17.5) Hematocrit 44.1 % (39.0-53.0) Mean Corpuscular Volume 97 fL (79-100) Mean Corpuscular Hemoglobin 34 pg (25-35) Mean Corpuscular Hemoglobin Concent 35 g/dL (31-37) Red Cell Distribution Width 12.7 % (11.5-14.5) Platelet Count 233 x10^3/uL (140-400) Neutrophils (%) (Auto) 53 % (31-73) Lymphocytes (%) (Auto) 24 % (24-48) Monocytes (%) (Auto) 17 % (0-9) Eosinophils (%) (Auto) 5 % (0-3) Basophils (%) (Auto) 1 % (0-3) Neutrophils # (Auto) 2.9 x10^3uL (1.8-7.7) Lymphocytes # (Auto) 1.3 x10^3/uL (1.0-4.8) Monocytes # (Auto) 0.9 x10^3/uL (0.0-1.1) Eosinophils # (Auto) 0.3 x10^3/uL (0.0-0.7) Basophils # (Auto) 0.1 x10^3/uL (0.0-0.2) Sodium Level 139 mmol/L (136-145) Potassium Level 4.3 mmol/L (3.5-5.1) Chloride Level 102 mmol/L (98-107) Carbon Dioxide Level 32 mmol/L (21-32) Anion Gap 5 (6-14) Blood Urea Nitrogen 13 mg/dL (8-26) Creatinine 1.0 mg/dL (0.7-1.3) Estimated GFR (Cockcroft-Gault) 90.7 Glucose Level 99 mg/dL (70-99) Calcium Level 9.1 mg/dL (8.5-10.1) Medications Current Medications Ondansetron HCl (Zofran) 4 mg PRN Q8HRS PRN IV NAUSEA/VOMITING; Start 06/08/17 at 16:45; Stop 06/09/17 at 14:42; Status DC Morphine Sulfate 2 mg PRN Q2HR PRN IV PAIN; Start 06/08/17 at 16:45; Stop 06/09 at 14:42; Status DC Acetaminophen (Tylenol) 650 mg PRN Q6HRS PRN PO FEVER; Start 06/08/17 at 17:45 Ondansetron HCl (Zofran) 4 mg PRN Q6HRS PRN IV NAUSEA/VOMITING; Start 06/08/17 at 17:45 Morphine Sulfate 2 mg PRN Q2HR PRN IV PAIN; Start 06/08/17 at 17:45 Tramadol HCl (Ultram) 50 mg PRN Q6HRS PRN PO PAIN MILD TO MOD; Start 06/08/17 at 17:45 Hydralazine HCl (Apresoline) 10 mg PRN Q4HRS PRN IVP ELEVATED BP, SEE COMMENTS ; Start 06/08/17 at 17:45 Docusate Sodium (Colace) 100 mg PRN DAILY PRN PO CONSTIPATION; Start 06/08/17 at 17:45 Albuterol Sulfate (Ventolin Neb Soln) 2.5 mg PRN Q4HRS PRN NEB SHORTNESS OF BREATH; Start 06/08/17 at 17:45 Enoxaparin Sodium (Lovenox 40mg Syringe) 40 mg Q24H SQ Last administered on 19:41; Start 06/08/17 at 18:00 Folic Acid (Folic Acid) 1 mg DAILY PO Last administered on 06/13/17 08:49; Start 06/08/17 at 18:00 Thiamine Mononitrate (Vitamin B-1) 100 mg DAILY PO Last administered on 08:50; Start 06/08/17 at 18:00 Lorazepam (Ativan) 2 mg PRN Q4HRS PRN IV ANXIETY / AGITATION Last administered on 06/09/17 00:49; Start 06/08/17 at 17:45 Lisinopril (Prinivil) 40 mg DAILY PO ; Start 06/08/17 at 18:00; Stop 06/08/17 at 18:45; Status DC Lisinopril (Prinivil) 20 mg DAILY PO ; Start 06/09/17 at 09:00; Stop 06/11/17 at 17:13; Status DC Zolpidem Tartrate (Ambien) 5 mg PRN QHS PRN PO INSOMNIA Last administered on 22:43; Start 06/08/17 at 20:45 Vitamin B Complex (Folbic Tablet) 1 tab DAILY PO Last administered on 08:49; Start 06/09/17 at 10:30 Cyanocobalamin (Vitamin B-12) 1,000 mcg 1X ONCE IM Last administered on 13:46; Start 06/09/17 at 10:45; Stop 06/09/17 at 10:46; Status DC Regadenoson (Lexiscan) 0.4 mg 1X ONCE IV ; Start 06/10/17 at 08:45; Stop at 08:46; Status DC Regadenoson (Lexiscan) 0.4 mg STK-MED ONCE IV ; Start 06/10/17 at 09:24; Stop at 09:25; Status DC Regadenoson (Lexiscan) 0.4 mg STK-MED ONCE IV ; Start 06/10/17 at 09:24; Stop at 10:04; Status DC Iohexol (Omnipaque 300 Mg/ml) 100 ml STK-MED ONCE .ROUTE ; Start 06/11/17 at 12: 54; Stop 06/11/17 at 12:55; Status DC Lidocaine HCl 20 ml STK-MED ONCE .ROUTE ; Start 06/11/17 at 12:55; Stop at 12:56; Status DC Heparin Sodium/ Sodium Chloride 500 ml @ As Directed STK-MED ONCE .ROUTE ; Start 06/11/17 at 12:55; Stop 06/11/17 at 12:56; Status DC Midazolam HCl (Versed) 2 mg STK-MED ONCE .ROUTE ; Start 06/11/17 at 13:23; Stop 06/11/17 at 13:24; Status DC Fentanyl Citrate (Fentanyl 2ml Vial) 100 mcg STK-MED ONCE .ROUTE ; Start at 13:23; Stop 06/11/17 at 13:24; Status DC Heparin Sodium/ Sodium Chloride 1,000 unit 1X ONCE IART Last administered on 13:52; Start 06/11/17 at 13:45; Stop 06/11/17 at 13:46; Status DC Midazolam HCl (Versed) 2 mg 1X ONCE IV Last administered on 06/11/17 13:52; Start 06/11/17 at 13:45; Stop 06/11/17 at 13:46; Status DC Fentanyl Citrate (Fentanyl 2ml Vial) 100 mcg 1X ONCE IV Last administered on 13:52; Start 06/11/17 at 13:45; Stop 06/11/17 at 13:46; Status DC Iohexol (Omnipaque 300 Mg/ml) 100 ml 1X ONCE IART Last administered on 13:51; Start 06/11/17 at 13:45; Stop 06/11/17 at 13:46; Status DC Lidocaine HCl 20 ml 1X ONCE IJ Last administered on 06/11/17 13:51; Start at 13:45; Stop 06/11/17 at 13:46; Status DC Metoprolol Tartrate (Lopressor) 25 mg BID PO Last administered on 06/13/17 08: 50; Start 06/11/17 at 21:00 Iohexol (Omnipaque 300 Mg/ml) 75 ml 1X ONCE IV Last administered on 06/12/17 08:12; Start 06/12/17 at 08:30; Stop 06/12/17 at 08:31; Status DC Info (Do NOT chart on this entry -- for MONITORING) 1 each PRN DAILY PRN MC SEE COMMENTS; Start 06/12/17 at 08:15; Stop 06/14/17 at 08:14 Lidocaine HCl (Xylocaine 2% Topical 5gm Tube) 1 grant 1X ONCE TP ; Start at 14:00; Stop 06/12/17 at 14:01; Status DC Lidocaine HCl (Viscous Lidocaine) 15 ml 1X ONCE MM ; Start 06/12/17 at 14:00; Stop 06/12/17 at 14:01; Status Cancel Benzocaine (Hurricaine One) 3 spray 1X ONCE MM ; Start 06/12/17 at 14:00; Stop 06/12/17 at 14:01; Status DC Lidocaine HCl (Viscous Lidocaine) 15 ml 1X PRN PRN MM FOR REBEKAH; Start 06/14/17 at 09:00; Stop 06/14/17 at 18:00 Benzocaine (Hurricaine One) 3 spray 1X ONCE MM ; Start 06/14/17 at 07:00; Stop 06/14/17 at 07:01 Lidocaine HCl (Xylocaine 2% Topical 5gm Tube) 1 grant 1X ONCE TP ; Start at 07:00; Stop 06/14/17 at 07:01 Active Scripts Active Reported [none] Vitals/I & O Vital Sign - Last 24 Hours 06/12/17 06/12/17 06/12/17 06/12/17 15:12 19:00 20:00 22:17 Temp 98.1 97.9 98.1 97.9 Pulse 69 57 57 Resp 18 18 B/P (MAP) 124/61 (82) 140/82 (101) 140/82 Pulse Ox 98 O2 Delivery Room Air Room Air Room Air 06/12/17 06/13/17 06/13/17 06/13/17 22:58 03:40 07:20 08:03 Temp 98.2 97.7 97.8 98.2 97.7 97.8 Pulse 58 57 62 Resp 16 18 20 B/P (MAP) 124/63 (83) 124/74 (91) 120/60 (80) Pulse Ox 100 99 99 O2 Delivery Room Air Room Air Room Air Room Air 06/13/17 06/13/17 08:50 11:00 Temp 98.1 98.1 Pulse 62 68 Resp 18 B/P (MAP) 120/60 124/68 (86) Pulse Ox 99 O2 Delivery Room Air RICH JEREZ MD Jun 13, 2017 15:00
--- NOTE | 2017-06-13 19:18 | PDOC ---
Provider Note Provider Note CT reviewed. No obvious LV aneurysm. Plan for REBEKAH tomorrow. Will proceed with CABG on Wednesday (06/15/17), pending Dr Brooks's final assessment and plan CORY CALLAWAY MD Jun 13, 2017 19:18
[2017-06-13 19:50] VITALS: BP 111/57
[2017-06-13 23:20] VITALS: BP 131/81
[2017-06-13] MEDS: ZOLPIDEM 5 MG TABLET. PO PRN (23:34)
[2017-06-14] VITALS (8 sets, daily range): BP systolic 107–140; BP diastolic 62–79
[2017-06-14 04:46] LABS: BASO # 0.1 x10^3/uL (0.0-0.2); BASO % 1 % (0-3); EOS % 5 % (0-3); HEMATOCRIT 43.3 % (39.0-53.0); HEMOGLOBIN 14.6 g/dL (13.0-17.5); LYMPH # 1.7 x10^3/uL (1.0-4.8); LYMPH % 31 % (24-48); MEAN CORPUSCULAR HEMOGLOBIN 33 pg (25-35); MEAN CORPUSCULAR HGB CONC 34 g/dL (31-37); MEAN CORPUSCULAR VOLUME 98 fL (79-100); MONO % 15 % (0-9); NEUT % 48 % (31-73); PLATELET COUNT 221 x10^3/uL (140-400); RED BLOOD COUNT 4.41 x10^6/uL (4.30-5.70); RED CELL DISTRIBUTION WIDTH 12.6 % (11.5-14.5); WHITE BLOOD COUNT 5.6 x10^3/uL (4.0-11.0)
[2017-06-14 05:06] LABS: CALCIUM 9.1 mg/dL (8.5-10.1); GFR 90.7; POTASSIUM 4.1 mmol/L (3.5-5.1)
[2017-06-14] MEDS ORDERED: BENZOCAINE ONE 20% MUCOSAL SPRAY. MM (07:00)
[2017-06-14] MEDS ORDERED: LIDOCAINE 2% TOPICAL JELLY 5GM TUBE. TP ONE (07:00)
[2017-06-14] MEDS: METOPROLOL TART IMMED RELEASE 25 MG TABLET. PO SCH ×2 (09:00→20:23)
[2017-06-14] MEDS ORDERED: LIDOCAINE 2% VISCOUS 15 ML SOLUTION. MM PRN (09:00)
[2017-06-14] MEDS ORDERED: LIDOCAINE 2% TOPICAL JELLY 30GM TUBE. TP ONE (10:57)
--- NOTE | 2017-06-14 11:04 | PDOC ---
PROGRESS NOTES Chief Complaint Chief Complaint exertional dyspnea with CHF likely chest pain with dyspnea chronic combined systolic and diastolic CHF,, est EF 40% on MPI H/O CAD 2013 with 1 stent at obtuse marginal branch HTN poor control, noncompliant with emds alcohol abuse d/o, prior tobaccoism leg weakness, unsteady gait and peripheral neuropathy plan; fu with card, CT MPI + with large defect cath showed multiple vessle dz CT recommend CABG ON Wednesday cont current meds on metoprolol chest lower ext US, carotid US, chest CT as per CT REBEKAH today pt worries about his ? heart aneurysm, wait for REBEKAH and card, CT discussion. History of Present Illness History of Present Illness ROS : no fever, chills, chest pain exertional sob no chest pain Vitals Vitals Vital Signs Date Time Temp Pulse Resp B/P (MAP) Pulse Ox O2 Delivery O2 Flow Rate FiO2 06/14/17 08:25 Room Air 06/14/17 07:00 98.1 54 18 107/67 (80) 100 98.1 Physical Exam General: Alert, Oriented X3, No acute distress Heart: Regular rate, Normal S1, Normal S2 Lungs: Clear Abdomen: Soft, No tenderness Extremities: No edema Skin: No significant lesion Labs LABS Laboratory Tests Test 06/14/17 03:55 White Blood Count 5.6 x10^3/uL (4.0-11.0) Red Blood Count 4.41 x10^6/uL (4.30-5.70) Hemoglobin 14.6 g/dL (13.0-17.5) Hematocrit 43.3 % (39.0-53.0) Mean Corpuscular Volume 98 fL (79-100) Mean Corpuscular Hemoglobin 33 pg (25-35) Mean Corpuscular Hemoglobin Concent 34 g/dL (31-37) Red Cell Distribution Width 12.6 % (11.5-14.5) Platelet Count 221 x10^3/uL (140-400) Neutrophils (%) (Auto) 48 % (31-73) Lymphocytes (%) (Auto) 31 % (24-48) Monocytes (%) (Auto) 15 % (0-9) Eosinophils (%) (Auto) 5 % (0-3) Basophils (%) (Auto) 1 % (0-3) Neutrophils # (Auto) 2.7 x10^3uL (1.8-7.7) Lymphocytes # (Auto) 1.7 x10^3/uL (1.0-4.8) Monocytes # (Auto) 0.8 x10^3/uL (0.0-1.1) Eosinophils # (Auto) 0.3 x10^3/uL (0.0-0.7) Basophils # (Auto) 0.1 x10^3/uL (0.0-0.2) Sodium Level 139 mmol/L (136-145) Potassium Level 4.1 mmol/L (3.5-5.1) Chloride Level 104 mmol/L (98-107) Carbon Dioxide Level 27 mmol/L (21-32) Anion Gap 8 (6-14) Blood Urea Nitrogen 14 mg/dL (8-26) Creatinine 1.0 mg/dL (0.7-1.3) Estimated GFR (Cockcroft-Gault) 90.7 Glucose Level 100 mg/dL (70-99) Calcium Level 9.1 mg/dL (8.5-10.1) Assessment and Plan Assessmemt and Plan Problems Medical Problems: (1) Chest pain Status: Acute (2) Shortness of breath Status: Acute Problems: Comment Review of Relevant I have reviewed the following items chetan (where applicable) has been applied. Labs Laboratory Tests Test 06/13/17 03:05 06/14/17 03:55 White Blood Count 5.4 x10^3/uL (4.0-11.0) 5.6 x10^3/uL (4.0-11.0) Red Blood Count 4.56 x10^6/uL (4.30-5.70) 4.41 x10^6/uL (4.30-5.70) Hemoglobin 15.3 g/dL (13.0-17.5) 14.6 g/dL (13.0-17.5) Hematocrit 44.1 % (39.0-53.0) 43.3 % (39.0-53.0) Mean Corpuscular Volume 97 fL (79-100) 98 fL (79-100) Mean Corpuscular Hemoglobin 34 pg (25-35) 33 pg (25-35) Mean Corpuscular Hemoglobin Concent 35 g/dL (31-37) 34 g/dL (31-37) Red Cell Distribution Width 12.7 % (11.5-14.5) 12.6 % (11.5-14.5) Platelet Count 233 x10^3/uL (140-400) 221 x10^3/uL (140-400) Neutrophils (%) (Auto) 53 % (31-73) 48 % (31-73) Lymphocytes (%) (Auto) 24 % (24-48) 31 % (24-48) Monocytes (%) (Auto) 17 % (0-9) 15 % (0-9) Eosinophils (%) (Auto) 5 % (0-3) 5 % (0-3) Basophils (%) (Auto) 1 % (0-3) 1 % (0-3) Neutrophils # (Auto) 2.9 x10^3uL (1.8-7.7) 2.7 x10^3uL (1.8-7.7) Lymphocytes # (Auto) 1.3 x10^3/uL (1.0-4.8) 1.7 x10^3/uL (1.0-4.8) Monocytes # (Auto) 0.9 x10^3/uL (0.0-1.1) 0.8 x10^3/uL (0.0-1.1) Eosinophils # (Auto) 0.3 x10^3/uL (0.0-0.7) 0.3 x10^3/uL (0.0-0.7) Basophils # (Auto) 0.1 x10^3/uL (0.0-0.2) 0.1 x10^3/uL (0.0-0.2) Sodium Level 139 mmol/L (136-145) 139 mmol/L (136-145) Potassium Level 4.3 mmol/L (3.5-5.1) 4.1 mmol/L (3.5-5.1) Chloride Level 102 mmol/L (98-107) 104 mmol/L (98-107) Carbon Dioxide Level 32 mmol/L (21-32) 27 mmol/L (21-32) Anion Gap 5 (6-14) 8 (6-14) Blood Urea Nitrogen 13 mg/dL (8-26) 14 mg/dL (8-26) Creatinine 1.0 mg/dL (0.7-1.3) 1.0 mg/dL (0.7-1.3) Estimated GFR (Cockcroft-Gault) 90.7 90.7 Glucose Level 99 mg/dL (70-99) 100 mg/dL (70-99) Calcium Level 9.1 mg/dL (8.5-10.1) 9.1 mg/dL (8.5-10.1) Laboratory Tests Test 06/14/17 03:55 White Blood Count 5.6 x10^3/uL (4.0-11.0) Red Blood Count 4.41 x10^6/uL (4.30-5.70) Hemoglobin 14.6 g/dL (13.0-17.5) Hematocrit 43.3 % (39.0-53.0) Mean Corpuscular Volume 98 fL (79-100) Mean Corpuscular Hemoglobin 33 pg (25-35) Mean Corpuscular Hemoglobin Concent 34 g/dL (31-37) Red Cell Distribution Width 12.6 % (11.5-14.5) Platelet Count 221 x10^3/uL (140-400) Neutrophils (%) (Auto) 48 % (31-73) Lymphocytes (%) (Auto) 31 % (24-48) Monocytes (%) (Auto) 15 % (0-9) Eosinophils (%) (Auto) 5 % (0-3) Basophils (%) (Auto) 1 % (0-3) Neutrophils # (Auto) 2.7 x10^3uL (1.8-7.7) Lymphocytes # (Auto) 1.7 x10^3/uL (1.0-4.8) Monocytes # (Auto) 0.8 x10^3/uL (0.0-1.1) Eosinophils # (Auto) 0.3 x10^3/uL (0.0-0.7) Basophils # (Auto) 0.1 x10^3/uL (0.0-0.2) Sodium Level 139 mmol/L (136-145) Potassium Level 4.1 mmol/L (3.5-5.1) Chloride Level 104 mmol/L (98-107) Carbon Dioxide Level 27 mmol/L (21-32) Anion Gap 8 (6-14) Blood Urea Nitrogen 14 mg/dL (8-26) Creatinine 1.0 mg/dL (0.7-1.3) Estimated GFR (Cockcroft-Gault) 90.7 Glucose Level 100 mg/dL (70-99) Calcium Level 9.1 mg/dL (8.5-10.1) Medications Current Medications Ondansetron HCl (Zofran) 4 mg PRN Q8HRS PRN IV NAUSEA/VOMITING; Start 06/08/17 at 16:45; Stop 06/09/17 at 14:42; Status DC Morphine Sulfate 2 mg PRN Q2HR PRN IV PAIN; Start 06/08/17 at 16:45; Stop 06/09 at 14:42; Status DC Acetaminophen (Tylenol) 650 mg PRN Q6HRS PRN PO FEVER; Start 06/08/17 at 17:45 Ondansetron HCl (Zofran) 4 mg PRN Q6HRS PRN IV NAUSEA/VOMITING; Start 06/08/17 at 17:45 Morphine Sulfate 2 mg PRN Q2HR PRN IV PAIN; Start 06/08/17 at 17:45 Tramadol HCl (Ultram) 50 mg PRN Q6HRS PRN PO PAIN MILD TO MOD; Start 06/08/17 at 17:45 Hydralazine HCl (Apresoline) 10 mg PRN Q4HRS PRN IVP ELEVATED BP, SEE COMMENTS ; Start 06/08/17 at 17:45 Docusate Sodium (Colace) 100 mg PRN DAILY PRN PO CONSTIPATION; Start 06/08/17 at 17:45 Albuterol Sulfate (Ventolin Neb Soln) 2.5 mg PRN Q4HRS PRN NEB SHORTNESS OF BREATH; Start 06/08/17 at 17:45 Enoxaparin Sodium (Lovenox 40mg Syringe) 40 mg Q24H SQ Last administered on 19:41; Start 06/08/17 at 18:00 Folic Acid (Folic Acid) 1 mg DAILY PO Last administered on 06/13/17 08:49; Start 06/08/17 at 18:00 Thiamine Mononitrate (Vitamin B-1) 100 mg DAILY PO Last administered on 08:50; Start 06/08/17 at 18:00 Lorazepam (Ativan) 2 mg PRN Q4HRS PRN IV ANXIETY / AGITATION Last administered on 06/09/17 00:49; Start 06/08/17 at 17:45 Lisinopril (Prinivil) 40 mg DAILY PO ; Start 06/08/17 at 18:00; Stop 06/08/17 at 18:45; Status DC Lisinopril (Prinivil) 20 mg DAILY PO ; Start 06/09/17 at 09:00; Stop 06/11/17 at 17:13; Status DC Zolpidem Tartrate (Ambien) 5 mg PRN QHS PRN PO INSOMNIA Last administered on 23:34; Start 06/08/17 at 20:45 Vitamin B Complex (Folbic Tablet) 1 tab DAILY PO Last administered on 08:49; Start 06/09/17 at 10:30 Cyanocobalamin (Vitamin B-12) 1,000 mcg 1X ONCE IM Last administered on 13:46; Start 06/09/17 at 10:45; Stop 06/09/17 at 10:46; Status DC Regadenoson (Lexiscan) 0.4 mg 1X ONCE IV ; Start 06/10/17 at 08:45; Stop at 08:46; Status DC Regadenoson (Lexiscan) 0.4 mg STK-MED ONCE IV ; Start 06/10/17 at 09:24; Stop at 09:25; Status DC Regadenoson (Lexiscan) 0.4 mg STK-MED ONCE IV ; Start 06/10/17 at 09:24; Stop at 10:04; Status DC Iohexol (Omnipaque 300 Mg/ml) 100 ml STK-MED ONCE .ROUTE ; Start 06/11/17 at 12: 54; Stop 06/11/17 at 12:55; Status DC Lidocaine HCl 20 ml STK-MED ONCE .ROUTE ; Start 06/11/17 at 12:55; Stop at 12:56; Status DC Heparin Sodium/ Sodium Chloride 500 ml @ As Directed STK-MED ONCE .ROUTE ; Start 06/11/17 at 12:55; Stop 06/11/17 at 12:56; Status DC Midazolam HCl (Versed) 2 mg STK-MED ONCE .ROUTE ; Start 06/11/17 at 13:23; Stop 06/11/17 at 13:24; Status DC Fentanyl Citrate (Fentanyl 2ml Vial) 100 mcg STK-MED ONCE .ROUTE ; Start at 13:23; Stop 06/11/17 at 13:24; Status DC Heparin Sodium/ Sodium Chloride 1,000 unit 1X ONCE IART Last administered on 13:52; Start 06/11/17 at 13:45; Stop 06/11/17 at 13:46; Status DC Midazolam HCl (Versed) 2 mg 1X ONCE IV Last administered on 06/11/17 13:52; Start 06/11/17 at 13:45; Stop 06/11/17 at 13:46; Status DC Fentanyl Citrate (Fentanyl 2ml Vial) 100 mcg 1X ONCE IV Last administered on 13:52; Start 06/11/17 at 13:45; Stop 06/11/17 at 13:46; Status DC Iohexol (Omnipaque 300 Mg/ml) 100 ml 1X ONCE IART Last administered on 13:51; Start 06/11/17 at 13:45; Stop 06/11/17 at 13:46; Status DC Lidocaine HCl 20 ml 1X ONCE IJ Last administered on 06/11/17 13:51; Start at 13:45; Stop 06/11/17 at 13:46; Status DC Metoprolol Tartrate (Lopressor) 25 mg BID PO Last administered on 06/13/17 20: 53; Start 06/11/17 at 21:00 Iohexol (Omnipaque 300 Mg/ml) 75 ml 1X ONCE IV Last administered on 06/12/17 08:12; Start 06/12/17 at 08:30; Stop 06/12/17 at 08:31; Status DC Info (Do NOT chart on this entry -- for MONITORING) 1 each PRN DAILY PRN MC SEE COMMENTS; Start 06/12/17 at 08:15; Stop 06/14/17 at 08:14; Status DC Lidocaine HCl (Xylocaine 2% Topical 5gm Tube) 1 grant 1X ONCE TP ; Start at 14:00; Stop 06/12/17 at 14:01; Status DC Lidocaine HCl (Viscous Lidocaine) 15 ml 1X ONCE MM ; Start 06/12/17 at 14:00; Stop 06/12/17 at 14:01; Status Cancel Benzocaine (Hurricaine One) 3 spray 1X ONCE MM ; Start 06/12/17 at 14:00; Stop 06/12/17 at 14:01; Status DC Lidocaine HCl (Viscous Lidocaine) 15 ml 1X PRN PRN MM FOR REBEKAH; Start 06/14/17 at 09:00; Stop 06/14/17 at 18:00 Benzocaine (Hurricaine One) 3 spray 1X ONCE MM ; Start 06/14/17 at 07:00; Stop 06/14/17 at 07:01; Status DC Lidocaine HCl (Xylocaine 2% Topical 5gm Tube) 1 grant 1X ONCE TP ; Start at 07:00; Stop 06/14/17 at 07:01; Status DC Lidocaine HCl (Xylocaine 2% Topical 30gm Tube) 30 grant STK-MED ONCE TP ; Start at 10:57; Stop 06/14/17 at 10:58; Status DC Active Scripts Active Reported [none] Vitals/I & O Vital Sign - Last 24 Hours 06/13/17 06/13/17 06/13/17 06/13/17 15:00 19:50 20:00 20:53 Temp 99.2 97.9 99.2 97.9 Pulse 59 64 64 Resp 20 18 B/P (MAP) 123/71 (88) 111/57 (75) 111/57 Pulse Ox 98 99 O2 Delivery Room Air Room Air Room Air 06/13/17 06/14/17 06/14/17 06/14/17 23:20 03:30 07:00 08:25 Temp 97.8 98.0 98.1 97.8 98.0 98.1 Pulse 52 58 54 Resp 18 18 18 B/P (MAP) 131/81 (98) 124/62 (82) 107/67 (80) Pulse Ox 100 98 100 O2 Delivery Room Air Room Air Room Air MADDI WIGGINS MD Jun 14, 2017 11:04
[2017-06-14] MEDS ORDERED: IV RINGERS,LACTATED 1000ML 1,000 ML IV SCH (11:31)
[2017-06-14] MEDS ORDERED: LIDOCAINE 1% PF 2 ML VIAL. ID PRN (11:45)
[2017-06-14] MEDS ORDERED: HYDROmorphone 2 MG/ML VIAL IV PRN (11:45)
[2017-06-14] MEDS ORDERED: ONDANSETRON PF 4 MG/2 ML VIAL. IV PRN (11:45)
[2017-06-14] MEDS ORDERED: PROCHLORPERAZINE 10 MG/2 ML VIAL. IV PRN (11:45)
[2017-06-14] MEDS ORDERED: MORPHINE SULFATE 2 MG/ML DISP.SYRIN. IV PRN (11:45)
[2017-06-14] MEDS ORDERED: fentaNYL PF VIAL 100 MCG/2 ML VIAL IV PRN ×2 (11:45)
--- NOTE | 2017-06-14 11:51 | PDOC ---
PROGRESS NOTES Subjective Subjective No new complaints. Objective Objective Vital Signs Date Time Temp Pulse Resp B/P (MAP) Pulse Ox O2 Delivery O2 Flow Rate FiO2 06/14/17 11:21 98.6 52 15 100/64 99 Room Air 98.6 06/11/17 13:53 2.0 Physical Exam Physical Exam He is supine in bed and he remains independent with his mobility and most of his ADLs. Assessment Assessment Problems Medical Problems: (1) Chest pain Status: Acute (2) Shortness of breath Status: Acute Plan Plan of Care Agree with present care plans. Comment Review of Relevant I have reviewed the following items cheatn (where applicable) has been applied. Labs Laboratory Tests Test 06/13/17 03:05 06/14/17 03:55 White Blood Count 5.4 x10^3/uL (4.0-11.0) 5.6 x10^3/uL (4.0-11.0) Red Blood Count 4.56 x10^6/uL (4.30-5.70) 4.41 x10^6/uL (4.30-5.70) Hemoglobin 15.3 g/dL (13.0-17.5) 14.6 g/dL (13.0-17.5) Hematocrit 44.1 % (39.0-53.0) 43.3 % (39.0-53.0) Mean Corpuscular Volume 97 fL (79-100) 98 fL (79-100) Mean Corpuscular Hemoglobin 34 pg (25-35) 33 pg (25-35) Mean Corpuscular Hemoglobin Concent 35 g/dL (31-37) 34 g/dL (31-37) Red Cell Distribution Width 12.7 % (11.5-14.5) 12.6 % (11.5-14.5) Platelet Count 233 x10^3/uL (140-400) 221 x10^3/uL (140-400) Neutrophils (%) (Auto) 53 % (31-73) 48 % (31-73) Lymphocytes (%) (Auto) 24 % (24-48) 31 % (24-48) Monocytes (%) (Auto) 17 % (0-9) 15 % (0-9) Eosinophils (%) (Auto) 5 % (0-3) 5 % (0-3) Basophils (%) (Auto) 1 % (0-3) 1 % (0-3) Neutrophils # (Auto) 2.9 x10^3uL (1.8-7.7) 2.7 x10^3uL (1.8-7.7) Lymphocytes # (Auto) 1.3 x10^3/uL (1.0-4.8) 1.7 x10^3/uL (1.0-4.8) Monocytes # (Auto) 0.9 x10^3/uL (0.0-1.1) 0.8 x10^3/uL (0.0-1.1) Eosinophils # (Auto) 0.3 x10^3/uL (0.0-0.7) 0.3 x10^3/uL (0.0-0.7) Basophils # (Auto) 0.1 x10^3/uL (0.0-0.2) 0.1 x10^3/uL (0.0-0.2) Sodium Level 139 mmol/L (136-145) 139 mmol/L (136-145) Potassium Level 4.3 mmol/L (3.5-5.1) 4.1 mmol/L (3.5-5.1) Chloride Level 102 mmol/L (98-107) 104 mmol/L (98-107) Carbon Dioxide Level 32 mmol/L (21-32) 27 mmol/L (21-32) Anion Gap 5 (6-14) 8 (6-14) Blood Urea Nitrogen 13 mg/dL (8-26) 14 mg/dL (8-26) Creatinine 1.0 mg/dL (0.7-1.3) 1.0 mg/dL (0.7-1.3) Estimated GFR (Cockcroft-Gault) 90.7 90.7 Glucose Level 99 mg/dL (70-99) 100 mg/dL (70-99) Calcium Level 9.1 mg/dL (8.5-10.1) 9.1 mg/dL (8.5-10.1) Laboratory Tests Test 06/14/17 03:55 White Blood Count 5.6 x10^3/uL (4.0-11.0) Red Blood Count 4.41 x10^6/uL (4.30-5.70) Hemoglobin 14.6 g/dL (13.0-17.5) Hematocrit 43.3 % (39.0-53.0) Mean Corpuscular Volume 98 fL (79-100) Mean Corpuscular Hemoglobin 33 pg (25-35) Mean Corpuscular Hemoglobin Concent 34 g/dL (31-37) Red Cell Distribution Width 12.6 % (11.5-14.5) Platelet Count 221 x10^3/uL (140-400) Neutrophils (%) (Auto) 48 % (31-73) Lymphocytes (%) (Auto) 31 % (24-48) Monocytes (%) (Auto) 15 % (0-9) Eosinophils (%) (Auto) 5 % (0-3) Basophils (%) (Auto) 1 % (0-3) Neutrophils # (Auto) 2.7 x10^3uL (1.8-7.7) Lymphocytes # (Auto) 1.7 x10^3/uL (1.0-4.8) Monocytes # (Auto) 0.8 x10^3/uL (0.0-1.1) Eosinophils # (Auto) 0.3 x10^3/uL (0.0-0.7) Basophils # (Auto) 0.1 x10^3/uL (0.0-0.2) Sodium Level 139 mmol/L (136-145) Potassium Level 4.1 mmol/L (3.5-5.1) Chloride Level 104 mmol/L (98-107) Carbon Dioxide Level 27 mmol/L (21-32) Anion Gap 8 (6-14) Blood Urea Nitrogen 14 mg/dL (8-26) Creatinine 1.0 mg/dL (0.7-1.3) Estimated GFR (Cockcroft-Gault) 90.7 Glucose Level 100 mg/dL (70-99) Calcium Level 9.1 mg/dL (8.5-10.1) Medications Current Medications Ondansetron HCl (Zofran) 4 mg PRN Q8HRS PRN IV NAUSEA/VOMITING; Start 06/08/17 at 16:45; Stop 06/09/17 at 14:42; Status DC Morphine Sulfate 2 mg PRN Q2HR PRN IV PAIN; Start 06/08/17 at 16:45; Stop 06/09 at 14:42; Status DC Acetaminophen (Tylenol) 650 mg PRN Q6HRS PRN PO FEVER; Start 06/08/17 at 17:45 Ondansetron HCl (Zofran) 4 mg PRN Q6HRS PRN IV NAUSEA/VOMITING; Start 06/08/17 at 17:45 Morphine Sulfate 2 mg PRN Q2HR PRN IV PAIN; Start 06/08/17 at 17:45 Tramadol HCl (Ultram) 50 mg PRN Q6HRS PRN PO PAIN MILD TO MOD; Start 06/08/17 at 17:45 Hydralazine HCl (Apresoline) 10 mg PRN Q4HRS PRN IVP ELEVATED BP, SEE COMMENTS ; Start 06/08/17 at 17:45 Docusate Sodium (Colace) 100 mg PRN DAILY PRN PO CONSTIPATION; Start 06/08/17 at 17:45 Albuterol Sulfate (Ventolin Neb Soln) 2.5 mg PRN Q4HRS PRN NEB SHORTNESS OF BREATH; Start 06/08/17 at 17:45 Enoxaparin Sodium (Lovenox 40mg Syringe) 40 mg Q24H SQ Last administered on 19:41; Start 06/08/17 at 18:00 Folic Acid (Folic Acid) 1 mg DAILY PO Last administered on 06/13/17 08:49; Start 06/08/17 at 18:00 Thiamine Mononitrate (Vitamin B-1) 100 mg DAILY PO Last administered on 08:50; Start 06/08/17 at 18:00 Lorazepam (Ativan) 2 mg PRN Q4HRS PRN IV ANXIETY / AGITATION Last administered on 06/09/17 00:49; Start 06/08/17 at 17:45 Lisinopril (Prinivil) 40 mg DAILY PO ; Start 06/08/17 at 18:00; Stop 06/08/17 at 18:45; Status DC Lisinopril (Prinivil) 20 mg DAILY PO ; Start 06/09/17 at 09:00; Stop 06/11/17 at 17:13; Status DC Zolpidem Tartrate (Ambien) 5 mg PRN QHS PRN PO INSOMNIA Last administered on 23:34; Start 06/08/17 at 20:45 Vitamin B Complex (Folbic Tablet) 1 tab DAILY PO Last administered on 08:49; Start 06/09/17 at 10:30 Cyanocobalamin (Vitamin B-12) 1,000 mcg 1X ONCE IM Last administered on 13:46; Start 06/09/17 at 10:45; Stop 06/09/17 at 10:46; Status DC Regadenoson (Lexiscan) 0.4 mg 1X ONCE IV ; Start 06/10/17 at 08:45; Stop at 08:46; Status DC Regadenoson (Lexiscan) 0.4 mg STK-MED ONCE IV ; Start 06/10/17 at 09:24; Stop at 09:25; Status DC Regadenoson (Lexiscan) 0.4 mg STK-MED ONCE IV ; Start 06/10/17 at 09:24; Stop at 10:04; Status DC Iohexol (Omnipaque 300 Mg/ml) 100 ml STK-MED ONCE .ROUTE ; Start 06/11/17 at 12: 54; Stop 06/11/17 at 12:55; Status DC Lidocaine HCl 20 ml STK-MED ONCE .ROUTE ; Start 06/11/17 at 12:55; Stop at 12:56; Status DC Heparin Sodium/ Sodium Chloride 500 ml @ As Directed STK-MED ONCE .ROUTE ; Start 06/11/17 at 12:55; Stop 06/11/17 at 12:56; Status DC Midazolam HCl (Versed) 2 mg STK-MED ONCE .ROUTE ; Start 06/11/17 at 13:23; Stop 06/11/17 at 13:24; Status DC Fentanyl Citrate (Fentanyl 2ml Vial) 100 mcg STK-MED ONCE .ROUTE ; Start at 13:23; Stop 06/11/17 at 13:24; Status DC Heparin Sodium/ Sodium Chloride 1,000 unit 1X ONCE IART Last administered on 13:52; Start 06/11/17 at 13:45; Stop 06/11/17 at 13:46; Status DC Midazolam HCl (Versed) 2 mg 1X ONCE IV Last administered on 06/11/17 13:52; Start 06/11/17 at 13:45; Stop 06/11/17 at 13:46; Status DC Fentanyl Citrate (Fentanyl 2ml Vial) 100 mcg 1X ONCE IV Last administered on 13:52; Start 06/11/17 at 13:45; Stop 06/11/17 at 13:46; Status DC Iohexol (Omnipaque 300 Mg/ml) 100 ml 1X ONCE IART Last administered on 13:51; Start 06/11/17 at 13:45; Stop 06/11/17 at 13:46; Status DC Lidocaine HCl 20 ml 1X ONCE IJ Last administered on 06/11/17 13:51; Start at 13:45; Stop 06/11/17 at 13:46; Status DC Metoprolol Tartrate (Lopressor) 25 mg BID PO Last administered on 06/13/17 20: 53; Start 06/11/17 at 21:00 Iohexol (Omnipaque 300 Mg/ml) 75 ml 1X ONCE IV Last administered on 06/12/17 08:12; Start 06/12/17 at 08:30; Stop 06/12/17 at 08:31; Status DC Info (Do NOT chart on this entry -- for MONITORING) 1 each PRN DAILY PRN MC SEE COMMENTS; Start 06/12/17 at 08:15; Stop 06/14/17 at 08:14; Status DC Lidocaine HCl (Xylocaine 2% Topical 5gm Tube) 1 grant 1X ONCE TP ; Start at 14:00; Stop 06/12/17 at 14:01; Status DC Lidocaine HCl (Viscous Lidocaine) 15 ml 1X ONCE MM ; Start 06/12/17 at 14:00; Stop 06/12/17 at 14:01; Status Cancel Benzocaine (Hurricaine One) 3 spray 1X ONCE MM ; Start 06/12/17 at 14:00; Stop 06/12/17 at 14:01; Status DC Lidocaine HCl (Viscous Lidocaine) 15 ml 1X PRN PRN MM FOR REBEKAH; Start 06/14/17 at 09:00; Stop 06/14/17 at 18:00 Benzocaine (Hurricaine One) 3 spray 1X ONCE MM ; Start 06/14/17 at 07:00; Stop 06/14/17 at 07:01; Status DC Lidocaine HCl (Xylocaine 2% Topical 5gm Tube) 1 grant 1X ONCE TP ; Start at 07:00; Stop 06/14/17 at 07:01; Status DC Lidocaine HCl (Xylocaine 2% Topical 30gm Tube) 30 grant STK-MED ONCE TP ; Start at 10:57; Stop 06/14/17 at 10:58; Status DC Ondansetron HCl (Zofran) 4 mg PRN Q6HRS PRN IV NAUSEA/VOMITING; Start 06/14/17 at 11:45; Stop 06/15/17 at 11:44 Fentanyl Citrate (Fentanyl 2ml Vial) 25 mcg PRN Q5MIN PRN IV MILD PAIN; Start 06/14/17 at 11:45; Stop 06/15/17 at 11:44 Fentanyl Citrate (Fentanyl 2ml Vial) 50 mcg PRN Q5MIN PRN IV MODERATE PAIN; Start 06/14/17 at 11:45; Stop 06/15/17 at 11:44 Morphine Sulfate 1 mg PRN Q10MIN PRN IV SEVERE PAIN; Start 06/14/17 at 11:45; Stop 06/15/17 at 11:44 Ringer's Solution 1,000 ml @ 30 mls/hr Q24H IV Last administered on 06/14/17t 11:31; Start 06/14/17 at 11:31; Stop 06/14/17 at 23:30 Lidocaine HCl (Xylocaine-Mpf 1% Vial) 2 ml 1X PRN PRN ID IV START; Start at 11:45; Stop 06/15/17 at 11:44 Hydromorphone HCl (Dilaudid) 0.5 mg PRN Q10MIN PRN IV SEV PAIN, Second choice; Start 06/14/17 at 11:45; Stop 06/15/17 at 11:44 Prochlorperazine Edisylate (Compazine) 5 mg PACU PRN PRN IV NAUSEA, MRX1; Start 06/14/17 at 11:45; Stop 06/15/17 at 11:44 Active Scripts Active Reported [none] Vitals/I & O Vital Sign - Last 24 Hours 06/13/17 06/13/17 06/13/17 06/13/17 15:00 19:50 20:00 20:53 Temp 99.2 97.9 99.2 97.9 Pulse 59 64 64 Resp 20 18 B/P (MAP) 123/71 (88) 111/57 (75) 111/57 Pulse Ox 98 99 O2 Delivery Room Air Room Air Room Air 06/13/17 06/14/17 06/14/17 06/14/17 23:20 03:30 07:00 08:25 Temp 97.8 98.0 98.1 97.8 98.0 98.1 Pulse 52 58 54 Resp 18 18 18 B/P (MAP) 131/81 (98) 124/62 (82) 107/67 (80) Pulse Ox 100 98 100 O2 Delivery Room Air Room Air Room Air 06/14/17 06/14/17 11:00 11:21 Temp 97.9 98.6 97.9 98.6 Pulse 50 52 Resp 18 15 B/P (MAP) 118/65 (82) 100/64 Pulse Ox 99 99 O2 Delivery Room Air MAGDALENE CRUZ MD Jun 14, 2017 11:51
[2017-06-14] MEDS ORDERED: PROPOFOL 20 ML IV ONE (13:32)
--- NOTE | 2017-06-14 14:20 | CARD ---
APPROVED REPORT EXAM: Transesophageal echocardiogram with color flow Doppler. INDICATION Evaluate LV Aneurysm Reason For Test : Evaluate LV Aneurysm PROCEDURE After obtaining informed consent, patient underwent transesophageal echo in the PACU. Type of Sedation : Conscious Sedation Sedation was achieved with Propofol 180mg intravenously. Transesophageal probe was inserted and advanced into esophagus by Kwasi Brooks MD. The REBEKAH was performed without complications. Throughout the procedure, the blood pressure, pulse oximetry, cardiac rhythm, and rate were monitored . The patient tolerated the procedure without adverse effects. Recovery from conscious sedation was une ventful and vital signs were stable. 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 RIGHT VENTRICLE Normal RV size ATRIA The left atrium size is normal. The right atrium size is normal. AORTIC VALVE The aortic valve is normal in structure and function. MITRAL VALVE The mitral valve is normal in structure and function. There is no evidence of mitral valve prolapse. There is no mitral valve stenosis. Doppler and Color-flow revealed trace mitral regurgitation. PULMONIC VALVE The pulmonary valve is normal in structure and function. Doppler and Color Flow revealed no pulmonic valvular regurgitation. There is no pulmonic valvular stenosis. GREAT VESSELS The aortic root is normal in size. 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 Normal RV size The left atrium size is normal. The right atrium size is normal. The aortic valve is normal in structure and function. The mitral valve is normal in structure and function. The pulmonary valve is normal in structure and function. The aortic root is normal in size.
[2017-06-14] MEDS: VITAMIN B12,B9,B6 COMPLEX 1 TABLET. PO SCH (14:48)
[2017-06-14] MEDS: FOLIC ACID 1 MG TABLET. PO SCH (14:48)
[2017-06-14] MEDS: THIAMINE 100 MG TABLET. PO SCH (14:48)
--- NOTE | 2017-06-14 18:30 | PDOC ---
PROGRESS NOTES Subjective Subjective Patient had the REBEKAH done this morning Objective Objective Vital Signs Date Time Temp Pulse Resp B/P (MAP) Pulse Ox O2 Delivery O2 Flow Rate FiO2 06/14/17 15:00 55 16 118/65 (82) 100 Room Air 06/14/17 14:15 97.8 97.8 06/14/17 13:29 2 Intake and Output 06/15/17 07:00 Intake Total 300 ml Balance 300 ml IV Total 300 ml # Voids 1 Physical Exam Physical Exam No significant changes in cardiac exam Assessment Assessment Patient had a REBEKAH done today. 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 This needs to be discussed with the CV surgeon with regards to the possibility of doing an aneurysmectomy. In addition to that I think the patient needs to have bypass surgery to the LAD and consider doing a graft to the PDA and the obtuse marginal if they are big enough to warrant a graft. Problems Medical Problems: (1) Chest pain Status: Acute (2) Shortness of breath Status: Acute Comment Review of Relevant I have reviewed the following items chetan (where applicable) has been applied. Labs Laboratory Tests Test 06/13/17 03:05 06/14/17 03:55 White Blood Count 5.4 x10^3/uL (4.0-11.0) 5.6 x10^3/uL (4.0-11.0) Red Blood Count 4.56 x10^6/uL (4.30-5.70) 4.41 x10^6/uL (4.30-5.70) Hemoglobin 15.3 g/dL (13.0-17.5) 14.6 g/dL (13.0-17.5) Hematocrit 44.1 % (39.0-53.0) 43.3 % (39.0-53.0) Mean Corpuscular Volume 97 fL (79-100) 98 fL (79-100) Mean Corpuscular Hemoglobin 34 pg (25-35) 33 pg (25-35) Mean Corpuscular Hemoglobin Concent 35 g/dL (31-37) 34 g/dL (31-37) Red Cell Distribution Width 12.7 % (11.5-14.5) 12.6 % (11.5-14.5) Platelet Count 233 x10^3/uL (140-400) 221 x10^3/uL (140-400) Neutrophils (%) (Auto) 53 % (31-73) 48 % (31-73) Lymphocytes (%) (Auto) 24 % (24-48) 31 % (24-48) Monocytes (%) (Auto) 17 % (0-9) 15 % (0-9) Eosinophils (%) (Auto) 5 % (0-3) 5 % (0-3) Basophils (%) (Auto) 1 % (0-3) 1 % (0-3) Neutrophils # (Auto) 2.9 x10^3uL (1.8-7.7) 2.7 x10^3uL (1.8-7.7) Lymphocytes # (Auto) 1.3 x10^3/uL (1.0-4.8) 1.7 x10^3/uL (1.0-4.8) Monocytes # (Auto) 0.9 x10^3/uL (0.0-1.1) 0.8 x10^3/uL (0.0-1.1) Eosinophils # (Auto) 0.3 x10^3/uL (0.0-0.7) 0.3 x10^3/uL (0.0-0.7) Basophils # (Auto) 0.1 x10^3/uL (0.0-0.2) 0.1 x10^3/uL (0.0-0.2) Sodium Level 139 mmol/L (136-145) 139 mmol/L (136-145) Potassium Level 4.3 mmol/L (3.5-5.1) 4.1 mmol/L (3.5-5.1) Chloride Level 102 mmol/L (98-107) 104 mmol/L (98-107) Carbon Dioxide Level 32 mmol/L (21-32) 27 mmol/L (21-32) Anion Gap 5 (6-14) 8 (6-14) Blood Urea Nitrogen 13 mg/dL (8-26) 14 mg/dL (8-26) Creatinine 1.0 mg/dL (0.7-1.3) 1.0 mg/dL (0.7-1.3) Estimated GFR (Cockcroft-Gault) 90.7 90.7 Glucose Level 99 mg/dL (70-99) 100 mg/dL (70-99) Calcium Level 9.1 mg/dL (8.5-10.1) 9.1 mg/dL (8.5-10.1) Laboratory Tests Test 06/14/17 03:55 White Blood Count 5.6 x10^3/uL (4.0-11.0) Red Blood Count 4.41 x10^6/uL (4.30-5.70) Hemoglobin 14.6 g/dL (13.0-17.5) Hematocrit 43.3 % (39.0-53.0) Mean Corpuscular Volume 98 fL (79-100) Mean Corpuscular Hemoglobin 33 pg (25-35) Mean Corpuscular Hemoglobin Concent 34 g/dL (31-37) Red Cell Distribution Width 12.6 % (11.5-14.5) Platelet Count 221 x10^3/uL (140-400) Neutrophils (%) (Auto) 48 % (31-73) Lymphocytes (%) (Auto) 31 % (24-48) Monocytes (%) (Auto) 15 % (0-9) Eosinophils (%) (Auto) 5 % (0-3) Basophils (%) (Auto) 1 % (0-3) Neutrophils # (Auto) 2.7 x10^3uL (1.8-7.7) Lymphocytes # (Auto) 1.7 x10^3/uL (1.0-4.8) Monocytes # (Auto) 0.8 x10^3/uL (0.0-1.1) Eosinophils # (Auto) 0.3 x10^3/uL (0.0-0.7) Basophils # (Auto) 0.1 x10^3/uL (0.0-0.2) Sodium Level 139 mmol/L (136-145) Potassium Level 4.1 mmol/L (3.5-5.1) Chloride Level 104 mmol/L (98-107) Carbon Dioxide Level 27 mmol/L (21-32) Anion Gap 8 (6-14) Blood Urea Nitrogen 14 mg/dL (8-26) Creatinine 1.0 mg/dL (0.7-1.3) Estimated GFR (Cockcroft-Gault) 90.7 Glucose Level 100 mg/dL (70-99) Calcium Level 9.1 mg/dL (8.5-10.1) Medications Current Medications Ondansetron HCl (Zofran) 4 mg PRN Q8HRS PRN IV NAUSEA/VOMITING; Start 06/08/17 at 16:45; Stop 06/09/17 at 14:42; Status DC Morphine Sulfate 2 mg PRN Q2HR PRN IV PAIN; Start 06/08/17 at 16:45; Stop 06/09 at 14:42; Status DC Acetaminophen (Tylenol) 650 mg PRN Q6HRS PRN PO FEVER; Start 06/08/17 at 17:45 Ondansetron HCl (Zofran) 4 mg PRN Q6HRS PRN IV NAUSEA/VOMITING; Start 06/08/17 at 17:45 Morphine Sulfate 2 mg PRN Q2HR PRN IV PAIN; Start 06/08/17 at 17:45 Tramadol HCl (Ultram) 50 mg PRN Q6HRS PRN PO PAIN MILD TO MOD; Start 06/08/17 at 17:45 Hydralazine HCl (Apresoline) 10 mg PRN Q4HRS PRN IVP ELEVATED BP, SEE COMMENTS ; Start 06/08/17 at 17:45 Docusate Sodium (Colace) 100 mg PRN DAILY PRN PO CONSTIPATION; Start 06/08/17 at 17:45 Albuterol Sulfate (Ventolin Neb Soln) 2.5 mg PRN Q4HRS PRN NEB SHORTNESS OF BREATH; Start 06/08/17 at 17:45 Enoxaparin Sodium (Lovenox 40mg Syringe) 40 mg Q24H SQ Last administered on 19:41; Start 06/08/17 at 18:00; Stop 06/14/17 at 14:20; Status DC Folic Acid (Folic Acid) 1 mg DAILY PO Last administered on 06/14/17 14:48; Start 06/08/17 at 18:00 Thiamine Mononitrate (Vitamin B-1) 100 mg DAILY PO Last administered on 14:48; Start 06/08/17 at 18:00 Lorazepam (Ativan) 2 mg PRN Q4HRS PRN IV ANXIETY / AGITATION Last administered on 06/09/17 00:49; Start 06/08/17 at 17:45 Lisinopril (Prinivil) 40 mg DAILY PO ; Start 06/08/17 at 18:00; Stop 06/08/17 at 18:45; Status DC Lisinopril (Prinivil) 20 mg DAILY PO ; Start 06/09/17 at 09:00; Stop 06/11/17 at 17:13; Status DC Zolpidem Tartrate (Ambien) 5 mg PRN QHS PRN PO INSOMNIA Last administered on 23:34; Start 06/08/17 at 20:45 Vitamin B Complex (Folbic Tablet) 1 tab DAILY PO Last administered on 14:48; Start 06/09/17 at 10:30 Cyanocobalamin (Vitamin B-12) 1,000 mcg 1X ONCE IM Last administered on 13:46; Start 06/09/17 at 10:45; Stop 06/09/17 at 10:46; Status DC Regadenoson (Lexiscan) 0.4 mg 1X ONCE IV ; Start 06/10/17 at 08:45; Stop at 08:46; Status DC Regadenoson (Lexiscan) 0.4 mg STK-MED ONCE IV ; Start 06/10/17 at 09:24; Stop at 09:25; Status DC Regadenoson (Lexiscan) 0.4 mg STK-MED ONCE IV ; Start 06/10/17 at 09:24; Stop at 10:04; Status DC Iohexol (Omnipaque 300 Mg/ml) 100 ml STK-MED ONCE .ROUTE ; Start 06/11/17 at 12: 54; Stop 06/11/17 at 12:55; Status DC Lidocaine HCl 20 ml STK-MED ONCE .ROUTE ; Start 06/11/17 at 12:55; Stop at 12:56; Status DC Heparin Sodium/ Sodium Chloride 500 ml @ As Directed STK-MED ONCE .ROUTE ; Start 06/11/17 at 12:55; Stop 06/11/17 at 12:56; Status DC Midazolam HCl (Versed) 2 mg STK-MED ONCE .ROUTE ; Start 06/11/17 at 13:23; Stop 06/11/17 at 13:24; Status DC Fentanyl Citrate (Fentanyl 2ml Vial) 100 mcg STK-MED ONCE .ROUTE ; Start at 13:23; Stop 06/11/17 at 13:24; Status DC Heparin Sodium/ Sodium Chloride 1,000 unit 1X ONCE IART Last administered on 13:52; Start 06/11/17 at 13:45; Stop 06/11/17 at 13:46; Status DC Midazolam HCl (Versed) 2 mg 1X ONCE IV Last administered on 06/11/17 13:52; Start 06/11/17 at 13:45; Stop 06/11/17 at 13:46; Status DC Fentanyl Citrate (Fentanyl 2ml Vial) 100 mcg 1X ONCE IV Last administered on 13:52; Start 06/11/17 at 13:45; Stop 06/11/17 at 13:46; Status DC Iohexol (Omnipaque 300 Mg/ml) 100 ml 1X ONCE IART Last administered on 13:51; Start 06/11/17 at 13:45; Stop 06/11/17 at 13:46; Status DC Lidocaine HCl 20 ml 1X ONCE IJ Last administered on 06/11/17 13:51; Start at 13:45; Stop 06/11/17 at 13:46; Status DC Metoprolol Tartrate (Lopressor) 25 mg BID PO Last administered on 06/13/17 20: 53; Start 06/11/17 at 21:00 Iohexol (Omnipaque 300 Mg/ml) 75 ml 1X ONCE IV Last administered on 06/12/17 08:12; Start 06/12/17 at 08:30; Stop 06/12/17 at 08:31; Status DC Info (Do NOT chart on this entry -- for MONITORING) 1 each PRN DAILY PRN MC SEE COMMENTS; Start 06/12/17 at 08:15; Stop 06/14/17 at 08:14; Status DC Lidocaine HCl (Xylocaine 2% Topical 5gm Tube) 1 grant 1X ONCE TP ; Start at 14:00; Stop 06/12/17 at 14:01; Status DC Lidocaine HCl (Viscous Lidocaine) 15 ml 1X ONCE MM ; Start 06/12/17 at 14:00; Stop 06/12/17 at 14:01; Status Cancel Benzocaine (Hurricaine One) 3 spray 1X ONCE MM ; Start 06/12/17 at 14:00; Stop 06/12/17 at 14:01; Status DC Lidocaine HCl (Viscous Lidocaine) 15 ml 1X PRN PRN MM FOR REBEKAH Last administered on 06/14/17 13:14; Start 06/14/17 at 09:00; Stop 06/14/17 at 18:00 ; Status DC Benzocaine (Hurricaine One) 3 spray 1X ONCE MM Last administered on 06/14/17 13:14; Start 06/14/17 at 07:00; Stop 06/14/17 at 07:01; Status DC Lidocaine HCl (Xylocaine 2% Topical 5gm Tube) 1 grant 1X ONCE TP Last administered on 06/14/17 13:17; Start 06/14/17 at 07:00; Stop 06/14/17 at 07:01 ; Status DC Lidocaine HCl (Xylocaine 2% Topical 30gm Tube) 30 grant STK-MED ONCE TP ; Start at 10:57; Stop 06/14/17 at 10:58; Status DC Ondansetron HCl (Zofran) 4 mg PRN Q6HRS PRN IV NAUSEA/VOMITING; Start 06/14/17 at 11:45; Stop 06/15/17 at 11:44 Fentanyl Citrate (Fentanyl 2ml Vial) 25 mcg PRN Q5MIN PRN IV MILD PAIN; Start 06/14/17 at 11:45; Stop 06/15/17 at 11:44 Fentanyl Citrate (Fentanyl 2ml Vial) 50 mcg PRN Q5MIN PRN IV MODERATE PAIN; Start 06/14/17 at 11:45; Stop 06/15/17 at 11:44 Morphine Sulfate 1 mg PRN Q10MIN PRN IV SEVERE PAIN; Start 06/14/17 at 11:45; Stop 06/15/17 at 11:44 Ringer's Solution 1,000 ml @ 30 mls/hr Q24H IV Last administered on 06/14/17 11:31; Start 06/14/17 at 11:31; Stop 06/14/17 at 23:30 Lidocaine HCl (Xylocaine-Mpf 1% Vial) 2 ml 1X PRN PRN ID IV START; Start at 11:45; Stop 06/15/17 at 11:44 Hydromorphone HCl (Dilaudid) 0.5 mg PRN Q10MIN PRN IV SEV PAIN, Second choice; Start 06/14/17 at 11:45; Stop 06/15/17 at 11:44 Prochlorperazine Edisylate (Compazine) 5 mg PACU PRN PRN IV NAUSEA, MRX1; Start 06/14/17 at 11:45; Stop 06/15/17 at 11:44 Propofol 20 ml @ As Directed STK-MED ONCE IV ; Start 06/14/17 at 13:32; Stop at 13:33; Status DC Ondansetron HCl (Zofran) 4 mg PRN Q6HRS PRN IV NAUSEA/VOMITING; Start 06/15/17 at 07:00; Stop 06/16/17 at 06:59 Fentanyl Citrate (Fentanyl 2ml Vial) 25 mcg PRN Q5MIN PRN IV MILD PAIN; Start 06/15/17 at 07:00; Stop 06/16/17 at 06:59 Fentanyl Citrate (Fentanyl 2ml Vial) 50 mcg PRN Q5MIN PRN IV MODERATE PAIN; Start 06/15/17 at 07:00; Stop 06/16/17 at 06:59 Morphine Sulfate 1 mg PRN Q10MIN PRN IV SEVERE PAIN; Start 06/15/17 at 07:00; Stop 06/16/17 at 06:59 Ringer's Solution 1,000 ml @ 30 mls/hr Q24H IV ; Start 06/15/17 at 07:00; Stop 06/15/17 at 18:59 Lidocaine HCl (Xylocaine-Mpf 1% Vial) 2 ml PRN 1X PRN ID IV START; Start at 07:00; Stop 06/16/17 at 06:59 Hydromorphone HCl (Dilaudid) 0.5 mg PRN Q10MIN PRN IV SEV PAIN, Second choice; Start 06/15/17 at 07:00; Stop 06/16/17 at 06:59 Prochlorperazine Edisylate (Compazine) 5 mg PACU PRN PRN IV NAUSEA, MRX1; Start 06/15/17 at 07:00; Stop 06/16/17 at 06:59 Potassium Chloride 70 meq/ Sodium Bicarbonate 12.5 meq/Lidocaine HCl 24 ml/ Parenteral Electrolytes 571.5 ml @ 571.5 mls/ hr 1X PERIOP ONCE IRR ; Start at 06:00; Stop 06/15/17 at 06:59 Potassium Chloride 15 meq/ Sodium Bicarbonate 12.5 meq/Parenteral Electrolytes 520 ml @ 520 mls/hr 1X PERIOP ONCE IRR ; Start 06/15/17 at 06:00; Stop at 06:59 Heparin Sodium (Porcine) 25170 unit/Ringer's Solution 1,020 ml @ 1,020 mls/hr 1X PERIOP ONCE IRR ; Start 06/15/17 at 06:00; Stop 06/15/17 at 06:59 Active Scripts Active Reported [none] Vitals/I & O Vital Sign - Last 24 Hours 06/13/17 06/13/17 06/13/17 06/13/17 19:50 20:00 20:53 23:20 Temp 97.9 97.8 97.9 97.8 Pulse 64 64 52 Resp 18 18 B/P (MAP) 111/57 (75) 111/57 131/81 (98) Pulse Ox 99 100 O2 Delivery Room Air Room Air Room Air 06/14/17 06/14/17 06/14/17 06/14/17 03:30 07:00 08:25 09:00 Temp 98.0 98.1 98.0 98.1 Pulse 58 54 68 Resp 18 18 B/P (MAP) 124/62 (82) 107/67 (80) 111/72 Pulse Ox 98 100 O2 Delivery Room Air Room Air 06/14/17 06/14/17 06/14/17 06/14/17 11:00 11:21 13:29 13:44 Temp 97.9 98.6 97.8 98.6 97.9 98.6 97.8 98.6 Pulse 50 52 62 60 Resp 18 15 16 15 B/P (MAP) 118/65 (82) 100/64 96/59 110/70 Pulse Ox 99 99 99 97 O2 Delivery Room Air Nasal Cannula Room Air O2 Flow Rate 2 06/14/17 06/14/17 06/14/17 06/14/17 13:59 14:15 14:30 15:00 Temp 97.8 97.8 Pulse 68 55 53 55 Resp 12 16 16 16 B/P (MAP) 111/72 121/70 (87) 118/70 (86) 118/65 (82) Pulse Ox 98 100 100 100 O2 Delivery Room Air Room Air Room Air Room Air Intake and Output 06/14/17 06/14/17 06/15/17 15:00 23:00 07:00 Intake Total 300 ml Balance 300 ml RICH JEREZ MD Jun 14, 2017 18:30
[2017-06-14] MEDS: ZOLPIDEM 5 MG TABLET. PO PRN (23:33)
[2017-06-15 03:05] VITALS: BP 133/65
[2017-06-15 05:01] LABS: BASO # 0.1 x10^3/uL (0.0-0.2); BASO % 1 % (0-3); EOS % 5 % (0-3); HEMATOCRIT 43.6 % (39.0-53.0); HEMOGLOBIN 14.5 g/dL (13.0-17.5); LYMPH # 1.7 x10^3/uL (1.0-4.8); LYMPH % 30 % (24-48); MEAN CORPUSCULAR HEMOGLOBIN 33 pg (25-35); MEAN CORPUSCULAR HGB CONC 33 g/dL (31-37); MEAN CORPUSCULAR VOLUME 99 fL (79-100); MONO % 15 % (0-9); NEUT % 48 % (31-73); PLATELET COUNT 217 x10^3/uL (140-400); RED BLOOD COUNT 4.42 x10^6/uL (4.30-5.70); RED CELL DISTRIBUTION WIDTH 12.8 % (11.5-14.5); WHITE BLOOD COUNT 5.6 x10^3/uL (4.0-11.0)
[2017-06-15 05:04] LABS: CALCIUM 8.9 mg/dL (8.5-10.1); GFR 90.7; POTASSIUM 4.1 mmol/L (3.5-5.1)
[2017-06-15] MEDS ORDERED: POTASSIUM CHLORIDE 70 MEQ, SODIUM BICARBONATE VIAL 12.5 MEQ, LIDOCAINE 2% 24 ML in IV E... IRR ONE (06:00)
[2017-06-15] MEDS ORDERED: HEPARIN 20,000 UNIT in IV RINGERS,LACTATED 1000ML 1,000 ML IRR ONE (06:00)
[2017-06-15] MEDS ORDERED: POTASSIUM CHLORIDE 15 MEQ, SODIUM BICARBONATE VIAL 12.5 MEQ in IV ELECTROLYTE-S (PH 7.4... IRR ONE (06:00)
[2017-06-15] MEDS ORDERED: ETOMIDATE 20 MG/10 ML VIAL. IV ONE (06:14)
[2017-06-15] MEDS ORDERED: LIDOCAINE 2% PF Vial for OR 5 ML VIAL. ONE (06:14)
[2017-06-15] MEDS ORDERED: ePHEDrine PF IN SALINE 50 MG/5 ML DISP.SYRIN IV ONE (06:14)
[2017-06-15] MEDS ORDERED: PHENYLEPHRINE 10 MG/ML VIAL. ONE (06:15)
[2017-06-15] MEDS ORDERED: AMINOCAPROIC ACID 5,000 MG/20 ML VIAL. IV ONE (06:15)
[2017-06-15] MEDS ORDERED: ROCURONIUM 100 MG/10 ML VIAL. ONE (06:15)
[2017-06-15] MEDS ORDERED: NITROGLYCERIN PREMIX 250 ML IV ONE (06:15)
[2017-06-15] MEDS ORDERED: HEPARIN 30,000 UNIT/30 ML VIAL. ONE (06:15)
[2017-06-15] MEDS ORDERED: SUFentanil 100 MCG/2 ML AMPUL. ONE (06:17)
[2017-06-15] MEDS ORDERED: MIDAZOLAM HCL/PF 2 MG/2 ML VIAL. ONE (06:20)
[2017-06-15 07:00] VITALS: BP 139/82
[2017-06-15] MEDS ORDERED: MORPHINE SULFATE 2 MG/ML DISP.SYRIN. IV PRN (07:00)
[2017-06-15] MEDS ORDERED: IV RINGERS,LACTATED 1000ML 1,000 ML IV SCH (07:00)
[2017-06-15] MEDS ORDERED: PROCHLORPERAZINE 10 MG/2 ML VIAL. IV PRN (07:00)
[2017-06-15] MEDS ORDERED: ONDANSETRON PF 4 MG/2 ML VIAL. IV PRN (07:00)
[2017-06-15] MEDS ORDERED: fentaNYL PF VIAL 100 MCG/2 ML VIAL IV PRN ×2 (07:00)
[2017-06-15] MEDS ORDERED: HYDROmorphone 2 MG/ML VIAL IV PRN (07:00)
[2017-06-15] MEDS ORDERED: LIDOCAINE 1% PF 2 ML VIAL. ID PRN (07:00)
[2017-06-15] MEDS: THIAMINE 100 MG TABLET. PO SCH (09:17)
[2017-06-15] MEDS: FOLIC ACID 1 MG TABLET. PO SCH (09:17)
[2017-06-15] MEDS: VITAMIN B12,B9,B6 COMPLEX 1 TABLET. PO SCH (09:17)
[2017-06-15] MEDS: METOPROLOL TART IMMED RELEASE 25 MG TABLET. PO SCH ×2 (09:18→21:04)
[2017-06-15 11:06] VITALS: BP 132/67
--- NOTE | 2017-06-15 13:13 | PDOC ---
PROGRESS NOTES Chief Complaint Chief Complaint Aneurysm, Cardiac by REBEKAH exertional dyspnea with CHF likely chest pain with dyspnea chronic combined systolic and diastolic CHF,, est EF 40% on MPI H/O CAD 2013 with 1 stent at obtuse marginal branch HTN poor control, noncompliant with emds alcohol abuse d/o, prior tobaccoism leg weakness, unsteady gait and peripheral neuropathy History of Present Illness History of Present Illness REBEKAH done yesterday shows aneurysm Now scheduled for viability testing richi and pending that will decide if CABG or PCI Eating lunch now with multiple fam members, no SOA or CP PLAN: CPM Viability testing richi NO new IM orders Dw RN Moe Vitals Vitals Vital Signs Date Time Temp Pulse Resp B/P (MAP) Pulse Ox O2 Delivery O2 Flow Rate FiO2 06/15/17 11:06 98.2 59 20 132/67 (88) 97 Room Air 98.2 06/14/17 13:29 2 Physical Exam General: Alert, Oriented X3, No acute distress Heart: Regular rate, Normal S1, Normal S2 Lungs: Clear Abdomen: Soft, No tenderness Extremities: No edema Skin: No significant lesion Labs LABS Laboratory Tests Test 06/15/17 04:20 White Blood Count 5.6 x10^3/uL (4.0-11.0) Red Blood Count 4.42 x10^6/uL (4.30-5.70) Hemoglobin 14.5 g/dL (13.0-17.5) Hematocrit 43.6 % (39.0-53.0) Mean Corpuscular Volume 99 fL (79-100) Mean Corpuscular Hemoglobin 33 pg (25-35) Mean Corpuscular Hemoglobin Concent 33 g/dL (31-37) Red Cell Distribution Width 12.8 % (11.5-14.5) Platelet Count 217 x10^3/uL (140-400) Neutrophils (%) (Auto) 48 % (31-73) Lymphocytes (%) (Auto) 30 % (24-48) Monocytes (%) (Auto) 15 % (0-9) Eosinophils (%) (Auto) 5 % (0-3) Basophils (%) (Auto) 1 % (0-3) Neutrophils # (Auto) 2.7 x10^3uL (1.8-7.7) Lymphocytes # (Auto) 1.7 x10^3/uL (1.0-4.8) Monocytes # (Auto) 0.8 x10^3/uL (0.0-1.1) Eosinophils # (Auto) 0.3 x10^3/uL (0.0-0.7) Basophils # (Auto) 0.1 x10^3/uL (0.0-0.2) Sodium Level 139 mmol/L (136-145) Potassium Level 4.1 mmol/L (3.5-5.1) Chloride Level 104 mmol/L (98-107) Carbon Dioxide Level 28 mmol/L (21-32) Anion Gap 7 (6-14) Blood Urea Nitrogen 15 mg/dL (8-26) Creatinine 1.0 mg/dL (0.7-1.3) Estimated GFR (Cockcroft-Gault) 90.7 Glucose Level 104 mg/dL (70-99) Calcium Level 8.9 mg/dL (8.5-10.1) Review of Systems Review of Systems denies 14 pt Assessment and Plan Assessmemt and Plan Problems Medical Problems: (1) Chest pain Status: Acute (2) Shortness of breath Status: Acute Problems: Comment Review of Relevant I have reviewed the following items chetan (where applicable) has been applied. Labs Laboratory Tests Test 06/14/17 03:55 06/15/17 04:20 White Blood Count 5.6 x10^3/uL (4.0-11.0) 5.6 x10^3/uL (4.0-11.0) Red Blood Count 4.41 x10^6/uL (4.30-5.70) 4.42 x10^6/uL (4.30-5.70) Hemoglobin 14.6 g/dL (13.0-17.5) 14.5 g/dL (13.0-17.5) Hematocrit 43.3 % (39.0-53.0) 43.6 % (39.0-53.0) Mean Corpuscular Volume 98 fL (79-100) 99 fL (79-100) Mean Corpuscular Hemoglobin 33 pg (25-35) 33 pg (25-35) Mean Corpuscular Hemoglobin Concent 34 g/dL (31-37) 33 g/dL (31-37) Red Cell Distribution Width 12.6 % (11.5-14.5) 12.8 % (11.5-14.5) Platelet Count 221 x10^3/uL (140-400) 217 x10^3/uL (140-400) Neutrophils (%) (Auto) 48 % (31-73) 48 % (31-73) Lymphocytes (%) (Auto) 31 % (24-48) 30 % (24-48) Monocytes (%) (Auto) 15 % (0-9) 15 % (0-9) Eosinophils (%) (Auto) 5 % (0-3) 5 % (0-3) Basophils (%) (Auto) 1 % (0-3) 1 % (0-3) Neutrophils # (Auto) 2.7 x10^3uL (1.8-7.7) 2.7 x10^3uL (1.8-7.7) Lymphocytes # (Auto) 1.7 x10^3/uL (1.0-4.8) 1.7 x10^3/uL (1.0-4.8) Monocytes # (Auto) 0.8 x10^3/uL (0.0-1.1) 0.8 x10^3/uL (0.0-1.1) Eosinophils # (Auto) 0.3 x10^3/uL (0.0-0.7) 0.3 x10^3/uL (0.0-0.7) Basophils # (Auto) 0.1 x10^3/uL (0.0-0.2) 0.1 x10^3/uL (0.0-0.2) Sodium Level 139 mmol/L (136-145) 139 mmol/L (136-145) Potassium Level 4.1 mmol/L (3.5-5.1) 4.1 mmol/L (3.5-5.1) Chloride Level 104 mmol/L (98-107) 104 mmol/L (98-107) Carbon Dioxide Level 27 mmol/L (21-32) 28 mmol/L (21-32) Anion Gap 8 (6-14) 7 (6-14) Blood Urea Nitrogen 14 mg/dL (8-26) 15 mg/dL (8-26) Creatinine 1.0 mg/dL (0.7-1.3) 1.0 mg/dL (0.7-1.3) Estimated GFR (Cockcroft-Gault) 90.7 90.7 Glucose Level 100 mg/dL (70-99) 104 mg/dL (70-99) Calcium Level 9.1 mg/dL (8.5-10.1) 8.9 mg/dL (8.5-10.1) Laboratory Tests Test 06/15/17 04:20 White Blood Count 5.6 x10^3/uL (4.0-11.0) Red Blood Count 4.42 x10^6/uL (4.30-5.70) Hemoglobin 14.5 g/dL (13.0-17.5) Hematocrit 43.6 % (39.0-53.0) Mean Corpuscular Volume 99 fL (79-100) Mean Corpuscular Hemoglobin 33 pg (25-35) Mean Corpuscular Hemoglobin Concent 33 g/dL (31-37) Red Cell Distribution Width 12.8 % (11.5-14.5) Platelet Count 217 x10^3/uL (140-400) Neutrophils (%) (Auto) 48 % (31-73) Lymphocytes (%) (Auto) 30 % (24-48) Monocytes (%) (Auto) 15 % (0-9) Eosinophils (%) (Auto) 5 % (0-3) Basophils (%) (Auto) 1 % (0-3) Neutrophils # (Auto) 2.7 x10^3uL (1.8-7.7) Lymphocytes # (Auto) 1.7 x10^3/uL (1.0-4.8) Monocytes # (Auto) 0.8 x10^3/uL (0.0-1.1) Eosinophils # (Auto) 0.3 x10^3/uL (0.0-0.7) Basophils # (Auto) 0.1 x10^3/uL (0.0-0.2) Sodium Level 139 mmol/L (136-145) Potassium Level 4.1 mmol/L (3.5-5.1) Chloride Level 104 mmol/L (98-107) Carbon Dioxide Level 28 mmol/L (21-32) Anion Gap 7 (6-14) Blood Urea Nitrogen 15 mg/dL (8-26) Creatinine 1.0 mg/dL (0.7-1.3) Estimated GFR (Cockcroft-Gault) 90.7 Glucose Level 104 mg/dL (70-99) Calcium Level 8.9 mg/dL (8.5-10.1) Medications Current Medications Ondansetron HCl (Zofran) 4 mg PRN Q8HRS PRN IV NAUSEA/VOMITING; Start 06/08/17 at 16:45; Stop 06/09/17 at 14:42; Status DC Morphine Sulfate 2 mg PRN Q2HR PRN IV PAIN; Start 06/08/17 at 16:45; Stop 06/09 at 14:42; Status DC Acetaminophen (Tylenol) 650 mg PRN Q6HRS PRN PO FEVER; Start 06/08/17 at 17:45 Ondansetron HCl (Zofran) 4 mg PRN Q6HRS PRN IV NAUSEA/VOMITING; Start 06/08/17 at 17:45 Morphine Sulfate 2 mg PRN Q2HR PRN IV PAIN; Start 06/08/17 at 17:45 Tramadol HCl (Ultram) 50 mg PRN Q6HRS PRN PO PAIN MILD TO MOD; Start 06/08/17 at 17:45 Hydralazine HCl (Apresoline) 10 mg PRN Q4HRS PRN IVP ELEVATED BP, SEE COMMENTS ; Start 06/08/17 at 17:45 Docusate Sodium (Colace) 100 mg PRN DAILY PRN PO CONSTIPATION; Start 06/08/17 at 17:45 Albuterol Sulfate (Ventolin Neb Soln) 2.5 mg PRN Q4HRS PRN NEB SHORTNESS OF BREATH; Start 06/08/17 at 17:45 Enoxaparin Sodium (Lovenox 40mg Syringe) 40 mg Q24H SQ Last administered on 19:41; Start 06/08/17 at 18:00; Stop 06/14/17 at 14:20; Status DC Folic Acid (Folic Acid) 1 mg DAILY PO Last administered on 06/15/17 09:17; Start 06/08/17 at 18:00 Thiamine Mononitrate (Vitamin B-1) 100 mg DAILY PO Last administered on 09:17; Start 06/08/17 at 18:00 Lorazepam (Ativan) 2 mg PRN Q4HRS PRN IV ANXIETY / AGITATION Last administered on 06/09/17 00:49; Start 06/08/17 at 17:45 Lisinopril (Prinivil) 40 mg DAILY PO ; Start 06/08/17 at 18:00; Stop 06/08/17 at 18:45; Status DC Lisinopril (Prinivil) 20 mg DAILY PO ; Start 06/09/17 at 09:00; Stop 06/11/17 at 17:13; Status DC Zolpidem Tartrate (Ambien) 5 mg PRN QHS PRN PO INSOMNIA Last administered on 23:33; Start 06/08/17 at 20:45 Vitamin B Complex (Folbic Tablet) 1 tab DAILY PO Last administered on 09:17; Start 06/09/17 at 10:30 Cyanocobalamin (Vitamin B-12) 1,000 mcg 1X ONCE IM Last administered on 13:46; Start 06/09/17 at 10:45; Stop 06/09/17 at 10:46; Status DC Regadenoson (Lexiscan) 0.4 mg 1X ONCE IV ; Start 06/10/17 at 08:45; Stop at 08:46; Status DC Regadenoson (Lexiscan) 0.4 mg STK-MED ONCE IV ; Start 06/10/17 at 09:24; Stop at 09:25; Status DC Regadenoson (Lexiscan) 0.4 mg STK-MED ONCE IV ; Start 06/10/17 at 09:24; Stop at 10:04; Status DC Iohexol (Omnipaque 300 Mg/ml) 100 ml STK-MED ONCE .ROUTE ; Start 06/11/17 at 12: 54; Stop 06/11/17 at 12:55; Status DC Lidocaine HCl 20 ml STK-MED ONCE .ROUTE ; Start 06/11/17 at 12:55; Stop at 12:56; Status DC Heparin Sodium/ Sodium Chloride 500 ml @ As Directed STK-MED ONCE .ROUTE ; Start 06/11/17 at 12:55; Stop 06/11/17 at 12:56; Status DC Midazolam HCl (Versed) 2 mg STK-MED ONCE .ROUTE ; Start 06/11/17 at 13:23; Stop 06/11/17 at 13:24; Status DC Fentanyl Citrate (Fentanyl 2ml Vial) 100 mcg STK-MED ONCE .ROUTE ; Start at 13:23; Stop 06/11/17 at 13:24; Status DC Heparin Sodium/ Sodium Chloride 1,000 unit 1X ONCE IART Last administered on 13:52; Start 06/11/17 at 13:45; Stop 06/11/17 at 13:46; Status DC Midazolam HCl (Versed) 2 mg 1X ONCE IV Last administered on 06/11/17 13:52; Start 06/11/17 at 13:45; Stop 06/11/17 at 13:46; Status DC Fentanyl Citrate (Fentanyl 2ml Vial) 100 mcg 1X ONCE IV Last administered on 13:52; Start 06/11/17 at 13:45; Stop 06/11/17 at 13:46; Status DC Iohexol (Omnipaque 300 Mg/ml) 100 ml 1X ONCE IART Last administered on 13:51; Start 06/11/17 at 13:45; Stop 06/11/17 at 13:46; Status DC Lidocaine HCl 20 ml 1X ONCE IJ Last administered on 06/11/17 13:51; Start at 13:45; Stop 06/11/17 at 13:46; Status DC Metoprolol Tartrate (Lopressor) 25 mg BID PO Last administered on 06/15/17 09: 18; Start 06/11/17 at 21:00 Iohexol (Omnipaque 300 Mg/ml) 75 ml 1X ONCE IV Last administered on 06/12/17 08:12; Start 06/12/17 at 08:30; Stop 06/12/17 at 08:31; Status DC Info (Do NOT chart on this entry -- for MONITORING) 1 each PRN DAILY PRN MC SEE COMMENTS; Start 06/12/17 at 08:15; Stop 06/14/17 at 08:14; Status DC Lidocaine HCl (Xylocaine 2% Topical 5gm Tube) 1 grant 1X ONCE TP ; Start at 14:00; Stop 06/12/17 at 14:01; Status DC Lidocaine HCl (Viscous Lidocaine) 15 ml 1X ONCE MM ; Start 06/12/17 at 14:00; Stop 06/12/17 at 14:01; Status Cancel Benzocaine (Hurricaine One) 3 spray 1X ONCE MM ; Start 06/12/17 at 14:00; Stop 06/12/17 at 14:01; Status DC Lidocaine HCl (Viscous Lidocaine) 15 ml 1X PRN PRN MM FOR REBEKAH Last administered on 06/14/17 13:14; Start 06/14/17 at 09:00; Stop 06/14/17 at 18:00 ; Status DC Benzocaine (Hurricaine One) 3 spray 1X ONCE MM Last administered on 06/14/17 13:14; Start 06/14/17 at 07:00; Stop 06/14/17 at 07:01; Status DC Lidocaine HCl (Xylocaine 2% Topical 5gm Tube) 1 grant 1X ONCE TP Last administered on 06/14/17 13:17; Start 06/14/17 at 07:00; Stop 06/14/17 at 07:01 ; Status DC Lidocaine HCl (Xylocaine 2% Topical 30gm Tube) 30 grant STK-MED ONCE TP ; Start at 10:57; Stop 06/14/17 at 10:58; Status DC Ondansetron HCl (Zofran) 4 mg PRN Q6HRS PRN IV NAUSEA/VOMITING; Start 06/14/17 at 11:45; Stop 06/15/17 at 11:44; Status DC Fentanyl Citrate (Fentanyl 2ml Vial) 25 mcg PRN Q5MIN PRN IV MILD PAIN; Start 06/14/17 at 11:45; Stop 06/15/17 at 11:44; Status DC Fentanyl Citrate (Fentanyl 2ml Vial) 50 mcg PRN Q5MIN PRN IV MODERATE PAIN; Start 06/14/17 at 11:45; Stop 06/15/17 at 11:44; Status DC Morphine Sulfate 1 mg PRN Q10MIN PRN IV SEVERE PAIN; Start 06/14/17 at 11:45; Stop 06/15/17 at 11:44; Status DC Ringer's Solution 1,000 ml @ 30 mls/hr Q24H IV Last administered on 06/14/17 11:31; Start 06/14/17 at 11:31; Stop 06/14/17 at 23:30; Status DC Lidocaine HCl (Xylocaine-Mpf 1% Vial) 2 ml 1X PRN PRN ID IV START; Start at 11:45; Stop 06/15/17 at 11:44; Status DC Hydromorphone HCl (Dilaudid) 0.5 mg PRN Q10MIN PRN IV SEV PAIN, Second choice; Start 06/14/17 at 11:45; Stop 06/15/17 at 11:44; Status DC Prochlorperazine Edisylate (Compazine) 5 mg PACU PRN PRN IV NAUSEA, MRX1; Start 06/14/17 at 11:45; Stop 06/15/17 at 11:44; Status DC Propofol 20 ml @ As Directed STK-MED ONCE IV ; Start 06/14/17 at 13:32; Stop at 13:33; Status DC Ondansetron HCl (Zofran) 4 mg PRN Q6HRS PRN IV NAUSEA/VOMITING; Start 06/15/17 at 07:00; Stop 06/16/17 at 06:59 Fentanyl Citrate (Fentanyl 2ml Vial) 25 mcg PRN Q5MIN PRN IV MILD PAIN; Start 06/15/17 at 07:00; Stop 06/16/17 at 06:59 Fentanyl Citrate (Fentanyl 2ml Vial) 50 mcg PRN Q5MIN PRN IV MODERATE PAIN; Start 06/15/17 at 07:00; Stop 06/16/17 at 06:59 Morphine Sulfate 1 mg PRN Q10MIN PRN IV SEVERE PAIN; Start 06/15/17 at 07:00; Stop 06/16/17 at 06:59 Ringer's Solution 1,000 ml @ 30 mls/hr Q24H IV ; Start 06/15/17 at 07:00; Stop 06/15/17 at 18:59 Lidocaine HCl (Xylocaine-Mpf 1% Vial) 2 ml PRN 1X PRN ID IV START; Start at 07:00; Stop 06/16/17 at 06:59 Hydromorphone HCl (Dilaudid) 0.5 mg PRN Q10MIN PRN IV SEV PAIN, Second choice; Start 06/15/17 at 07:00; Stop 06/16/17 at 06:59 Prochlorperazine Edisylate (Compazine) 5 mg PACU PRN PRN IV NAUSEA, MRX1; Start 06/15/17 at 07:00; Stop 06/16/17 at 06:59 Potassium Chloride 70 meq/ Sodium Bicarbonate 12.5 meq/Lidocaine HCl 24 ml/ Parenteral Electrolytes 571.5 ml @ 571.5 mls/ hr 1X PERIOP ONCE IRR ; Start at 06:00; Stop 06/15/17 at 06:59; Status DC Potassium Chloride 15 meq/ Sodium Bicarbonate 12.5 meq/Parenteral Electrolytes 520 ml @ 520 mls/hr 1X PERIOP ONCE IRR ; Start 06/15/17 at 06:00; Stop at 06:59; Status DC Heparin Sodium (Porcine) 62102 unit/Ringer's Solution 1,020 ml @ 1,020 mls/hr 1X PERIOP ONCE IRR ; Start 06/15/17 at 06:00; Stop 06/15/17 at 06:59; Status DC Etomidate (Amidate) 20 mg STK-MED ONCE IV ; Start 06/15/17 at 06:14; Stop at 06:15; Status DC Lidocaine HCl (Lidocaine Pf 2% Vial) 5 ml STK-MED ONCE .ROUTE ; Start 06/15/17 at 06:14; Stop 06/15/17 at 06:15; Status DC Ephedrine Sulfate 50 mg STK-MED ONCE IV ; Start 06/15/17 at 06:14; Stop at 06:15; Status DC Phenylephrine HCl (Arthur-Synephrine Inj) 10 mg STK-MED ONCE .ROUTE ; Start at 06:15; Stop 06/15/17 at 06:16; Status DC Rocuronium Sidney (Zemuron) 100 mg STK-MED ONCE .ROUTE ; Start 06/15/17 at 06: 15; Stop 06/15/17 at 06:16; Status DC Heparin Sodium (Porcine) 30,000 unit STK-MED ONCE .ROUTE ; Start 06/15/17 at 06: 15; Stop 06/15/17 at 06:16; Status DC Aminocaproic Acid (Amicar) 5,000 mg STK-MED ONCE IV ; Start 06/15/17 at 06:15; Stop 06/15/17 at 06:16; Status DC Nitroglycerin/ Dextrose 250 ml @ As Directed STK-MED ONCE IV ; Start 06/15/17 at 06:15; Stop 06/15/17 at 06:16; Status DC Sufentanil Citrate (Sufenta) 100 mcg STK-MED ONCE .ROUTE ; Start 06/15/17 at 06: 17; Stop 06/15/17 at 06:18; Status DC Midazolam HCl (Versed) 2 mg STK-MED ONCE .ROUTE ; Start 06/15/17 at 06:20; Stop 06/15/17 at 06:21; Status DC Cefazolin Sodium/ Dextrose 50 ml @ 100 mls/hr 1X PREOP ONCE IV ; Start at 07:45; Stop 06/15/17 at 08:14; Status DC Active Scripts Active Reported [none] Vitals/I & O Vital Sign - Last 24 Hours 06/14/17 06/14/17 06/14/17 06/14/17 13:29 13:44 13:59 14:15 Temp 97.8 98.6 97.8 97.8 98.6 97.8 Pulse 62 60 68 55 Resp 16 15 12 16 B/P (MAP) 96/59 110/70 111/72 121/70 (87) Pulse Ox 99 97 98 100 O2 Delivery Nasal Cannula Room Air Room Air Room Air O2 Flow Rate 2 06/14/17 06/14/17 06/14/17 06/14/17 14:30 15:00 19:55 20:23 Temp 97.6 97.6 Pulse 53 55 62 62 Resp 16 16 18 B/P (MAP) 118/70 (86) 118/65 (82) 138/71 (93) 138/71 Pulse Ox 100 100 98 O2 Delivery Room Air Room Air Room Air 06/14/17 06/14/17 06/15/17 06/15/17 20:30 22:55 03:05 07:00 Temp 98.4 98.3 98.1 98.4 98.3 98.1 Pulse 54 53 54 Resp 18 18 18 B/P (MAP) 140/79 (99) 133/65 (87) 139/82 (101) Pulse Ox 99 100 96 O2 Delivery Room Air Room Air Room Air Room Air 06/15/17 06/15/1706/15/17 08:10 09:18 11:06 Temp 98.2 98.2 Pulse 72 59 Resp 20 B/P (MAP) 139/82 132/67 (88) Pulse Ox 97 O2 Delivery Room Air Room Air ONIEL COUGHLIN MD Jun 15, 2017 13:13
--- NOTE | 2017-06-15 13:34 | PDOC ---
PROGRESS NOTES Subjective Subjective No new complaints. Objective Objective Vital Signs Date Time Temp Pulse Resp B/P (MAP) Pulse Ox O2 Delivery O2 Flow Rate FiO2 06/15/17 11:06 98.2 59 20 132/67 (88) 97 Room Air 98.2 06/14/17 13:29 2 Physical Exam Physical Exam He is comfortable sitting in bed and his family at bedside.He remains independent with his mobility and self care. Assessment Assessment Problems Medical Problems: (1) Chest pain Status: Acute (2) Shortness of breath Status: Acute Plan Plan of Care Agree with plans. Comment Review of Relevant I have reviewed the following items chetan (where applicable) has been applied. Labs Laboratory Tests Test 06/14/17 03:55 06/15/17 04:20 White Blood Count 5.6 x10^3/uL (4.0-11.0) 5.6 x10^3/uL (4.0-11.0) Red Blood Count 4.41 x10^6/uL (4.30-5.70) 4.42 x10^6/uL (4.30-5.70) Hemoglobin 14.6 g/dL (13.0-17.5) 14.5 g/dL (13.0-17.5) Hematocrit 43.3 % (39.0-53.0) 43.6 % (39.0-53.0) Mean Corpuscular Volume 98 fL (79-100) 99 fL (79-100) Mean Corpuscular Hemoglobin 33 pg (25-35) 33 pg (25-35) Mean Corpuscular Hemoglobin Concent 34 g/dL (31-37) 33 g/dL (31-37) Red Cell Distribution Width 12.6 % (11.5-14.5) 12.8 % (11.5-14.5) Platelet Count 221 x10^3/uL (140-400) 217 x10^3/uL (140-400) Neutrophils (%) (Auto) 48 % (31-73) 48 % (31-73) Lymphocytes (%) (Auto) 31 % (24-48) 30 % (24-48) Monocytes (%) (Auto) 15 % (0-9) 15 % (0-9) Eosinophils (%) (Auto) 5 % (0-3) 5 % (0-3) Basophils (%) (Auto) 1 % (0-3) 1 % (0-3) Neutrophils # (Auto) 2.7 x10^3uL (1.8-7.7) 2.7 x10^3uL (1.8-7.7) Lymphocytes # (Auto) 1.7 x10^3/uL (1.0-4.8) 1.7 x10^3/uL (1.0-4.8) Monocytes # (Auto) 0.8 x10^3/uL (0.0-1.1) 0.8 x10^3/uL (0.0-1.1) Eosinophils # (Auto) 0.3 x10^3/uL (0.0-0.7) 0.3 x10^3/uL (0.0-0.7) Basophils # (Auto) 0.1 x10^3/uL (0.0-0.2) 0.1 x10^3/uL (0.0-0.2) Sodium Level 139 mmol/L (136-145) 139 mmol/L (136-145) Potassium Level 4.1 mmol/L (3.5-5.1) 4.1 mmol/L (3.5-5.1) Chloride Level 104 mmol/L (98-107) 104 mmol/L (98-107) Carbon Dioxide Level 27 mmol/L (21-32) 28 mmol/L (21-32) Anion Gap 8 (6-14) 7 (6-14) Blood Urea Nitrogen 14 mg/dL (8-26) 15 mg/dL (8-26) Creatinine 1.0 mg/dL (0.7-1.3) 1.0 mg/dL (0.7-1.3) Estimated GFR (Cockcroft-Gault) 90.7 90.7 Glucose Level 100 mg/dL (70-99) 104 mg/dL (70-99) Calcium Level 9.1 mg/dL (8.5-10.1) 8.9 mg/dL (8.5-10.1) Laboratory Tests Test 06/15/17 04:20 White Blood Count 5.6 x10^3/uL (4.0-11.0) Red Blood Count 4.42 x10^6/uL (4.30-5.70) Hemoglobin 14.5 g/dL (13.0-17.5) Hematocrit 43.6 % (39.0-53.0) Mean Corpuscular Volume 99 fL (79-100) Mean Corpuscular Hemoglobin 33 pg (25-35) Mean Corpuscular Hemoglobin Concent 33 g/dL (31-37) Red Cell Distribution Width 12.8 % (11.5-14.5) Platelet Count 217 x10^3/uL (140-400) Neutrophils (%) (Auto) 48 % (31-73) Lymphocytes (%) (Auto) 30 % (24-48) Monocytes (%) (Auto) 15 % (0-9) Eosinophils (%) (Auto) 5 % (0-3) Basophils (%) (Auto) 1 % (0-3) Neutrophils # (Auto) 2.7 x10^3uL (1.8-7.7) Lymphocytes # (Auto) 1.7 x10^3/uL (1.0-4.8) Monocytes # (Auto) 0.8 x10^3/uL (0.0-1.1) Eosinophils # (Auto) 0.3 x10^3/uL (0.0-0.7) Basophils # (Auto) 0.1 x10^3/uL (0.0-0.2) Sodium Level 139 mmol/L (136-145) Potassium Level 4.1 mmol/L (3.5-5.1) Chloride Level 104 mmol/L (98-107) Carbon Dioxide Level 28 mmol/L (21-32) Anion Gap 7 (6-14) Blood Urea Nitrogen 15 mg/dL (8-26) Creatinine 1.0 mg/dL (0.7-1.3) Estimated GFR (Cockcroft-Gault) 90.7 Glucose Level 104 mg/dL (70-99) Calcium Level 8.9 mg/dL (8.5-10.1) Medications Current Medications Ondansetron HCl (Zofran) 4 mg PRN Q8HRS PRN IV NAUSEA/VOMITING; Start 06/08/17 at 16:45; Stop 06/09/17 at 14:42; Status DC Morphine Sulfate 2 mg PRN Q2HR PRN IV PAIN; Start 06/08/17 at 16:45; Stop 06/09 at 14:42; Status DC Acetaminophen (Tylenol) 650 mg PRN Q6HRS PRN PO FEVER; Start 06/08/17 at 17:45 Ondansetron HCl (Zofran) 4 mg PRN Q6HRS PRN IV NAUSEA/VOMITING; Start 06/08/17 at 17:45 Morphine Sulfate 2 mg PRN Q2HR PRN IV PAIN; Start 06/08/17 at 17:45 Tramadol HCl (Ultram) 50 mg PRN Q6HRS PRN PO PAIN MILD TO MOD; Start 06/08/17 at 17:45 Hydralazine HCl (Apresoline) 10 mg PRN Q4HRS PRN IVP ELEVATED BP, SEE COMMENTS ; Start 06/08/17 at 17:45 Docusate Sodium (Colace) 100 mg PRN DAILY PRN PO CONSTIPATION; Start 06/08/17 at 17:45 Albuterol Sulfate (Ventolin Neb Soln) 2.5 mg PRN Q4HRS PRN NEB SHORTNESS OF BREATH; Start 06/08/17 at 17:45 Enoxaparin Sodium (Lovenox 40mg Syringe) 40 mg Q24H SQ Last administered on 19:41; Start 06/08/17 at 18:00; Stop 06/14/17 at 14:20; Status DC Folic Acid (Folic Acid) 1 mg DAILY PO Last administered on 06/15/17 09:17; Start 06/08/17 at 18:00 Thiamine Mononitrate (Vitamin B-1) 100 mg DAILY PO Last administered on 09:17; Start 06/08/17 at 18:00 Lorazepam (Ativan) 2 mg PRN Q4HRS PRN IV ANXIETY / AGITATION Last administered on 06/09/17 00:49; Start 06/08/17 at 17:45 Lisinopril (Prinivil) 40 mg DAILY PO ; Start 06/08/17 at 18:00; Stop 06/08/17 at 18:45; Status DC Lisinopril (Prinivil) 20 mg DAILY PO ; Start 06/09/17 at 09:00; Stop 06/11/17 at 17:13; Status DC Zolpidem Tartrate (Ambien) 5 mg PRN QHS PRN PO INSOMNIA Last administered on 23:33; Start 06/08/17 at 20:45 Vitamin B Complex (Folbic Tablet) 1 tab DAILY PO Last administered on 09:17; Start 06/09/17 at 10:30 Cyanocobalamin (Vitamin B-12) 1,000 mcg 1X ONCE IM Last administered on 13:46; Start 06/09/17 at 10:45; Stop 06/09/17 at 10:46; Status DC Regadenoson (Lexiscan) 0.4 mg 1X ONCE IV ; Start 06/10/17 at 08:45; Stop at 08:46; Status DC Regadenoson (Lexiscan) 0.4 mg STK-MED ONCE IV ; Start 06/10/17 at 09:24; Stop at 09:25; Status DC Regadenoson (Lexiscan) 0.4 mg STK-MED ONCE IV ; Start 06/10/17 at 09:24; Stop at 10:04; Status DC Iohexol (Omnipaque 300 Mg/ml) 100 ml STK-MED ONCE .ROUTE ; Start 06/11/17 at 12: 54; Stop 06/11/17 at 12:55; Status DC Lidocaine HCl 20 ml STK-MED ONCE .ROUTE ; Start 06/11/17 at 12:55; Stop at 12:56; Status DC Heparin Sodium/ Sodium Chloride 500 ml @ As Directed STK-MED ONCE .ROUTE ; Start 06/11/17 at 12:55; Stop 06/11/17 at 12:56; Status DC Midazolam HCl (Versed) 2 mg STK-MED ONCE .ROUTE ; Start 06/11/17 at 13:23; Stop 06/11/17 at 13:24; Status DC Fentanyl Citrate (Fentanyl 2ml Vial) 100 mcg STK-MED ONCE .ROUTE ; Start at 13:23; Stop 06/11/17 at 13:24; Status DC Heparin Sodium/ Sodium Chloride 1,000 unit 1X ONCE IART Last administered on 13:52; Start 06/11/17 at 13:45; Stop 06/11/17 at 13:46; Status DC Midazolam HCl (Versed) 2 mg 1X ONCE IV Last administered on 06/11/17 13:52; Start 06/11/17 at 13:45; Stop 06/11/17 at 13:46; Status DC Fentanyl Citrate (Fentanyl 2ml Vial) 100 mcg 1X ONCE IV Last administered on 13:52; Start 06/11/17 at 13:45; Stop 06/11/17 at 13:46; Status DC Iohexol (Omnipaque 300 Mg/ml) 100 ml 1X ONCE IART Last administered on 13:51; Start 06/11/17 at 13:45; Stop 06/11/17 at 13:46; Status DC Lidocaine HCl 20 ml 1X ONCE IJ Last administered on 06/11/17 13:51; Start at 13:45; Stop 06/11/17 at 13:46; Status DC Metoprolol Tartrate (Lopressor) 25 mg BID PO Last administered on 06/15/17 09: 18; Start 06/11/17 at 21:00 Iohexol (Omnipaque 300 Mg/ml) 75 ml 1X ONCE IV Last administered on 06/12/17 08:12; Start 06/12/17 at 08:30; Stop 06/12/17 at 08:31; Status DC Info (Do NOT chart on this entry -- for MONITORING) 1 each PRN DAILY PRN MC SEE COMMENTS; Start 06/12/17 at 08:15; Stop 06/14/17 at 08:14; Status DC Lidocaine HCl (Xylocaine 2% Topical 5gm Tube) 1 grant 1X ONCE TP ; Start at 14:00; Stop 06/12/17 at 14:01; Status DC Lidocaine HCl (Viscous Lidocaine) 15 ml 1X ONCE MM ; Start 06/12/17 at 14:00; Stop 06/12/17 at 14:01; Status Cancel Benzocaine (Hurricaine One) 3 spray 1X ONCE MM ; Start 06/12/17 at 14:00; Stop 06/12/17 at 14:01; Status DC Lidocaine HCl (Viscous Lidocaine) 15 ml 1X PRN PRN MM FOR REBEKAH Last administered on 06/14/17 13:14; Start 06/14/17 at 09:00; Stop 06/14/17 at 18:00 ; Status DC Benzocaine (Hurricaine One) 3 spray 1X ONCE MM Last administered on 06/14/17 13:14; Start 06/14/17 at 07:00; Stop 06/14/17 at 07:01; Status DC Lidocaine HCl (Xylocaine 2% Topical 5gm Tube) 1 grant 1X ONCE TP Last administered on 06/14/17 13:17; Start 06/14/17 at 07:00; Stop 06/14/17 at 07:01 ; Status DC Lidocaine HCl (Xylocaine 2% Topical 30gm Tube) 30 grant STK-MED ONCE TP ; Start at 10:57; Stop 06/14/17 at 10:58; Status DC Ondansetron HCl (Zofran) 4 mg PRN Q6HRS PRN IV NAUSEA/VOMITING; Start 06/14/17 at 11:45; Stop 06/15/17 at 11:44; Status DC Fentanyl Citrate (Fentanyl 2ml Vial) 25 mcg PRN Q5MIN PRN IV MILD PAIN; Start 06/14/17 at 11:45; Stop 06/15/17 at 11:44; Status DC Fentanyl Citrate (Fentanyl 2ml Vial) 50 mcg PRN Q5MIN PRN IV MODERATE PAIN; Start 06/14/17 at 11:45; Stop 06/15/17 at 11:44; Status DC Morphine Sulfate 1 mg PRN Q10MIN PRN IV SEVERE PAIN; Start 06/14/17 at 11:45; Stop 06/15/17 at 11:44; Status DC Ringer's Solution 1,000 ml @ 30 mls/hr Q24H IV Last administered on 06/14/17 11:31; Start 06/14/17 at 11:31; Stop 06/14/17 at 23:30; Status DC Lidocaine HCl (Xylocaine-Mpf 1% Vial) 2 ml 1X PRN PRN ID IV START; Start at 11:45; Stop 06/15/17 at 11:44; Status DC Hydromorphone HCl (Dilaudid) 0.5 mg PRN Q10MIN PRN IV SEV PAIN, Second choice; Start 06/14/17 at 11:45; Stop 06/15/17 at 11:44; Status DC Prochlorperazine Edisylate (Compazine) 5 mg PACU PRN PRN IV NAUSEA, MRX1; Start 06/14/17 at 11:45; Stop 06/15/17 at 11:44; Status DC Propofol 20 ml @ As Directed STK-MED ONCE IV ; Start 06/14/17 at 13:32; Stop at 13:33; Status DC Ondansetron HCl (Zofran) 4 mg PRN Q6HRS PRN IV NAUSEA/VOMITING; Start 06/15/17 at 07:00; Stop 06/16/17 at 06:59 Fentanyl Citrate (Fentanyl 2ml Vial) 25 mcg PRN Q5MIN PRN IV MILD PAIN; Start 06/15/17 at 07:00; Stop 06/16/17 at 06:59 Fentanyl Citrate (Fentanyl 2ml Vial) 50 mcg PRN Q5MIN PRN IV MODERATE PAIN; Start 06/15/17 at 07:00; Stop 06/16/17 at 06:59 Morphine Sulfate 1 mg PRN Q10MIN PRN IV SEVERE PAIN; Start 06/15/17 at 07:00; Stop 06/16/17 at 06:59 Ringer's Solution 1,000 ml @ 30 mls/hr Q24H IV ; Start 06/15/17 at 07:00; Stop 06/15/17 at 18:59 Lidocaine HCl (Xylocaine-Mpf 1% Vial) 2 ml PRN 1X PRN ID IV START; Start at 07:00; Stop 06/16/17 at 06:59 Hydromorphone HCl (Dilaudid) 0.5 mg PRN Q10MIN PRN IV SEV PAIN, Second choice; Start 06/15/17 at 07:00; Stop 06/16/17 at 06:59 Prochlorperazine Edisylate (Compazine) 5 mg PACU PRN PRN IV NAUSEA, MRX1; Start 06/15/17 at 07:00; Stop 06/16/17 at 06:59 Potassium Chloride 70 meq/ Sodium Bicarbonate 12.5 meq/Lidocaine HCl 24 ml/ Parenteral Electrolytes 571.5 ml @ 571.5 mls/ hr 1X PERIOP ONCE IRR ; Start at 06:00; Stop 06/15/17 at 06:59; Status DC Potassium Chloride 15 meq/ Sodium Bicarbonate 12.5 meq/Parenteral Electrolytes 520 ml @ 520 mls/hr 1X PERIOP ONCE IRR ; Start 06/15/17 at 06:00; Stop at 06:59; Status DC Heparin Sodium (Porcine) 06725 unit/Ringer's Solution 1,020 ml @ 1,020 mls/hr 1X PERIOP ONCE IRR ; Start 06/15/17 at 06:00; Stop 06/15/17 at 06:59; Status DC Etomidate (Amidate) 20 mg STK-MED ONCE IV ; Start 06/15/17 at 06:14; Stop at 06:15; Status DC Lidocaine HCl (Lidocaine Pf 2% Vial) 5 ml STK-MED ONCE .ROUTE ; Start 06/15/17 at 06:14; Stop 06/15/17 at 06:15; Status DC Ephedrine Sulfate 50 mg STK-MED ONCE IV ; Start 06/15/17 at 06:14; Stop at 06:15; Status DC Phenylephrine HCl (Arthur-Synephrine Inj) 10 mg STK-MED ONCE .ROUTE ; Start at 06:15; Stop 06/15/17 at 06:16; Status DC Rocuronium [place] (Zemuron) 100 mg STK-MED ONCE .ROUTE ; Start 06/15/17 at 06: 15; Stop 06/15/17 at 06:16; Status DC Heparin Sodium (Porcine) 30,000 unit STK-MED ONCE .ROUTE ; Start 06/15/17 at 06: 15; Stop 06/15/17 at 06:16; Status DC Aminocaproic Acid (Amicar) 5,000 mg STK-MED ONCE IV ; Start 06/15/17 at 06:15; Stop 06/15/17 at 06:16; Status DC Nitroglycerin/ Dextrose 250 ml @ As Directed STK-MED ONCE IV ; Start 06/15/17 at 06:15; Stop 06/15/17 at 06:16; Status DC Sufentanil Citrate (Sufenta) 100 mcg STK-MED ONCE .ROUTE ; Start 06/15/17 at 06: 17; Stop 06/15/17 at 06:18; Status DC Midazolam HCl (Versed) 2 mg STK-MED ONCE .ROUTE ; Start 06/15/17 at 06:20; Stop 06/15/17 at 06:21; Status DC Cefazolin Sodium/ Dextrose 50 ml @ 100 mls/hr 1X PREOP ONCE IV ; Start at 07:45; Stop 06/15/17 at 08:14; Status DC Active Scripts Active Reported [none] Vitals/I & O Vital Sign - Last 24 Hours 06/14/17 06/14/17 06/14/17 06/14/17 13:44 13:59 14:15 14:30 Temp 98.6 97.8 98.6 97.8 Pulse 60 68 55 53 Resp 15 12 16 16 B/P (MAP) 110/70 111/72 121/70 (87) 118/70 (86) Pulse Ox 97 98 100 100 O2 Delivery Room Air Room Air Room Air Room Air 06/14/17 06/14/17 06/14/17 06/14/17 15:00 19:55 20:23 20:30 Temp 97.6 97.6 Pulse 55 62 62 Resp 16 18 B/P (MAP) 118/65 (82) 138/71 (93) 138/71 Pulse Ox 100 98 O2 Delivery Room Air Room Air Room Air 06/14/17 06/15/17 06/15/17 06/15/17 22:55 03:05 07:00 08:10 Temp 98.4 98.3 98.1 98.4 98.3 98.1 Pulse 54 53 54 Resp 18 18 18 B/P (MAP) 140/79 (99) 133/65 (87) 139/82 (101) Pulse Ox 99 100 96 O2 Delivery Room Air Room Air Room Air Room Air 06/15/17 06/15/17 09:18 11:06 Temp 98.2 98.2 Pulse 72 59 Resp 20 B/P (MAP) 139/82 132/67 (88) Pulse Ox 97 O2 Delivery Room Air MAGDALENE CRUZ MD Jun 15, 2017 13:34
[2017-06-15 15:14] VITALS: BP 129/76
--- NOTE | 2017-06-15 18:32 | PDOC ---
PROGRESS NOTES Subjective Subjective No chest pains. Objective Objective Vital Signs Date Time Temp Pulse Resp B/P (MAP) Pulse Ox O2 Delivery O2 Flow Rate FiO2 06/15/17 15:14 98.4 53 18 129/76 (93) 97 Room Air 98.4 06/14/17 13:29 2 Intake and Output 06/16/17 07:00 Intake Total 700 ml Balance 700 ml Intake Oral 700 ml # Voids 3 Physical Exam Physical Exam No significant changes in cardiac exam Assessment Assessment The case was discussed with the surgeon. Awaiting for the viability study. Agree with present plan. Problems Medical Problems: (1) Chest pain Status: Acute (2) Shortness of breath Status: Acute Comment Review of Relevant I have reviewed the following items chetan (where applicable) has been applied. Labs Laboratory Tests Test 06/14/17 03:55 06/15/17 04:20 White Blood Count 5.6 x10^3/uL (4.0-11.0) 5.6 x10^3/uL (4.0-11.0) Red Blood Count 4.41 x10^6/uL (4.30-5.70) 4.42 x10^6/uL (4.30-5.70) Hemoglobin 14.6 g/dL (13.0-17.5) 14.5 g/dL (13.0-17.5) Hematocrit 43.3 % (39.0-53.0) 43.6 % (39.0-53.0) Mean Corpuscular Volume 98 fL (79-100) 99 fL (79-100) Mean Corpuscular Hemoglobin 33 pg (25-35) 33 pg (25-35) Mean Corpuscular Hemoglobin Concent 34 g/dL (31-37) 33 g/dL (31-37) Red Cell Distribution Width 12.6 % (11.5-14.5) 12.8 % (11.5-14.5) Platelet Count 221 x10^3/uL (140-400) 217 x10^3/uL (140-400) Neutrophils (%) (Auto) 48 % (31-73) 48 % (31-73) Lymphocytes (%) (Auto) 31 % (24-48) 30 % (24-48) Monocytes (%) (Auto) 15 % (0-9) 15 % (0-9) Eosinophils (%) (Auto) 5 % (0-3) 5 % (0-3) Basophils (%) (Auto) 1 % (0-3) 1 % (0-3) Neutrophils # (Auto) 2.7 x10^3uL (1.8-7.7) 2.7 x10^3uL (1.8-7.7) Lymphocytes # (Auto) 1.7 x10^3/uL (1.0-4.8) 1.7 x10^3/uL (1.0-4.8) Monocytes # (Auto) 0.8 x10^3/uL (0.0-1.1) 0.8 x10^3/uL (0.0-1.1) Eosinophils # (Auto) 0.3 x10^3/uL (0.0-0.7) 0.3 x10^3/uL (0.0-0.7) Basophils # (Auto) 0.1 x10^3/uL (0.0-0.2) 0.1 x10^3/uL (0.0-0.2) Sodium Level 139 mmol/L (136-145) 139 mmol/L (136-145) Potassium Level 4.1 mmol/L (3.5-5.1) 4.1 mmol/L (3.5-5.1) Chloride Level 104 mmol/L (98-107) 104 mmol/L (98-107) Carbon Dioxide Level 27 mmol/L (21-32) 28 mmol/L (21-32) Anion Gap 8 (6-14) 7 (6-14) Blood Urea Nitrogen 14 mg/dL (8-26) 15 mg/dL (8-26) Creatinine 1.0 mg/dL (0.7-1.3) 1.0 mg/dL (0.7-1.3) Estimated GFR (Cockcroft-Gault) 90.7 90.7 Glucose Level 100 mg/dL (70-99) 104 mg/dL (70-99) Calcium Level 9.1 mg/dL (8.5-10.1) 8.9 mg/dL (8.5-10.1) Laboratory Tests Test 06/15/17 04:20 White Blood Count 5.6 x10^3/uL (4.0-11.0) Red Blood Count 4.42 x10^6/uL (4.30-5.70) Hemoglobin 14.5 g/dL (13.0-17.5) Hematocrit 43.6 % (39.0-53.0) Mean Corpuscular Volume 99 fL (79-100) Mean Corpuscular Hemoglobin 33 pg (25-35) Mean Corpuscular Hemoglobin Concent 33 g/dL (31-37) Red Cell Distribution Width 12.8 % (11.5-14.5) Platelet Count 217 x10^3/uL (140-400) Neutrophils (%) (Auto) 48 % (31-73) Lymphocytes (%) (Auto) 30 % (24-48) Monocytes (%) (Auto) 15 % (0-9) Eosinophils (%) (Auto) 5 % (0-3) Basophils (%) (Auto) 1 % (0-3) Neutrophils # (Auto) 2.7 x10^3uL (1.8-7.7) Lymphocytes # (Auto) 1.7 x10^3/uL (1.0-4.8) Monocytes # (Auto) 0.8 x10^3/uL (0.0-1.1) Eosinophils # (Auto) 0.3 x10^3/uL (0.0-0.7) Basophils # (Auto) 0.1 x10^3/uL (0.0-0.2) Sodium Level 139 mmol/L (136-145) Potassium Level 4.1 mmol/L (3.5-5.1) Chloride Level 104 mmol/L (98-107) Carbon Dioxide Level 28 mmol/L (21-32) Anion Gap 7 (6-14) Blood Urea Nitrogen 15 mg/dL (8-26) Creatinine 1.0 mg/dL (0.7-1.3) Estimated GFR (Cockcroft-Gault) 90.7 Glucose Level 104 mg/dL (70-99) Calcium Level 8.9 mg/dL (8.5-10.1) Medications Current Medications Ondansetron HCl (Zofran) 4 mg PRN Q8HRS PRN IV NAUSEA/VOMITING; Start 06/08/17 at 16:45; Stop 06/09/17 at 14:42; Status DC Morphine Sulfate 2 mg PRN Q2HR PRN IV PAIN; Start 06/08/17 at 16:45; Stop 06/09 at 14:42; Status DC Acetaminophen (Tylenol) 650 mg PRN Q6HRS PRN PO FEVER; Start 06/08/17 at 17:45 Ondansetron HCl (Zofran) 4 mg PRN Q6HRS PRN IV NAUSEA/VOMITING; Start 06/08/17 at 17:45 Morphine Sulfate 2 mg PRN Q2HR PRN IV PAIN; Start 06/08/17 at 17:45 Tramadol HCl (Ultram) 50 mg PRN Q6HRS PRN PO PAIN MILD TO MOD; Start 06/08/17 at 17:45 Hydralazine HCl (Apresoline) 10 mg PRN Q4HRS PRN IVP ELEVATED BP, SEE COMMENTS ; Start 06/08/17 at 17:45 Docusate Sodium (Colace) 100 mg PRN DAILY PRN PO CONSTIPATION; Start 06/08/17 at 17:45 Albuterol Sulfate (Ventolin Neb Soln) 2.5 mg PRN Q4HRS PRN NEB SHORTNESS OF BREATH; Start 06/08/17 at 17:45 Enoxaparin Sodium (Lovenox 40mg Syringe) 40 mg Q24H SQ Last administered on 19:41; Start 06/08/17 at 18:00; Stop 06/14/17 at 14:20; Status DC Folic Acid (Folic Acid) 1 mg DAILY PO Last administered on 06/15/17 09:17; Start 06/08/17 at 18:00 Thiamine Mononitrate (Vitamin B-1) 100 mg DAILY PO Last administered on 09:17; Start 06/08/17 at 18:00 Lorazepam (Ativan) 2 mg PRN Q4HRS PRN IV ANXIETY / AGITATION Last administered on 06/09/17 00:49; Start 06/08/17 at 17:45 Lisinopril (Prinivil) 40 mg DAILY PO ; Start 06/08/17 at 18:00; Stop 06/08/17 at 18:45; Status DC Lisinopril (Prinivil) 20 mg DAILY PO ; Start 06/09/17 at 09:00; Stop 06/11/17 at 17:13; Status DC Zolpidem Tartrate (Ambien) 5 mg PRN QHS PRN PO INSOMNIA Last administered on 23:33; Start 06/08/17 at 20:45 Vitamin B Complex (Folbic Tablet) 1 tab DAILY PO Last administered on 09:17; Start 06/09/17 at 10:30 Cyanocobalamin (Vitamin B-12) 1,000 mcg 1X ONCE IM Last administered on 13:46; Start 06/09/17 at 10:45; Stop 06/09/17 at 10:46; Status DC Regadenoson (Lexiscan) 0.4 mg 1X ONCE IV ; Start 06/10/17 at 08:45; Stop at 08:46; Status DC Regadenoson (Lexiscan) 0.4 mg STK-MED ONCE IV ; Start 06/10/17 at 09:24; Stop at 09:25; Status DC Regadenoson (Lexiscan) 0.4 mg STK-MED ONCE IV ; Start 06/10/17 at 09:24; Stop at 10:04; Status DC Iohexol (Omnipaque 300 Mg/ml) 100 ml STK-MED ONCE .ROUTE ; Start 06/11/17 at 12: 54; Stop 06/11/17 at 12:55; Status DC Lidocaine HCl 20 ml STK-MED ONCE .ROUTE ; Start 06/11/17 at 12:55; Stop at 12:56; Status DC Heparin Sodium/ Sodium Chloride 500 ml @ As Directed STK-MED ONCE .ROUTE ; Start 06/11/17 at 12:55; Stop 06/11/17 at 12:56; Status DC Midazolam HCl (Versed) 2 mg STK-MED ONCE .ROUTE ; Start 06/11/17 at 13:23; Stop 06/11/17 at 13:24; Status DC Fentanyl Citrate (Fentanyl 2ml Vial) 100 mcg STK-MED ONCE .ROUTE ; Start at 13:23; Stop 06/11/17 at 13:24; Status DC Heparin Sodium/ Sodium Chloride 1,000 unit 1X ONCE IART Last administered on 13:52; Start 06/11/17 at 13:45; Stop 06/11/17 at 13:46; Status DC Midazolam HCl (Versed) 2 mg 1X ONCE IV Last administered on 06/11/17 13:52; Start 06/11/17 at 13:45; Stop 06/11/17 at 13:46; Status DC Fentanyl Citrate (Fentanyl 2ml Vial) 100 mcg 1X ONCE IV Last administered on 13:52; Start 06/11/17 at 13:45; Stop 06/11/17 at 13:46; Status DC Iohexol (Omnipaque 300 Mg/ml) 100 ml 1X ONCE IART Last administered on 13:51; Start 06/11/17 at 13:45; Stop 06/11/17 at 13:46; Status DC Lidocaine HCl 20 ml 1X ONCE IJ Last administered on 06/11/17 13:51; Start at 13:45; Stop 06/11/17 at 13:46; Status DC Metoprolol Tartrate (Lopressor) 25 mg BID PO Last administered on 06/15/17 09: 18; Start 06/11/17 at 21:00 Iohexol (Omnipaque 300 Mg/ml) 75 ml 1X ONCE IV Last administered on 06/12/17 08:12; Start 06/12/17 at 08:30; Stop 06/12/17 at 08:31; Status DC Info (Do NOT chart on this entry -- for MONITORING) 1 each PRN DAILY PRN MC SEE COMMENTS; Start 06/12/17 at 08:15; Stop 06/14/17 at 08:14; Status DC Lidocaine HCl (Xylocaine 2% Topical 5gm Tube) 1 grant 1X ONCE TP ; Start at 14:00; Stop 06/12/17 at 14:01; Status DC Lidocaine HCl (Viscous Lidocaine) 15 ml 1X ONCE MM ; Start 06/12/17 at 14:00; Stop 06/12/17 at 14:01; Status Cancel Benzocaine (Hurricaine One) 3 spray 1X ONCE MM ; Start 06/12/17 at 14:00; Stop 06/12/17 at 14:01; Status DC Lidocaine HCl (Viscous Lidocaine) 15 ml 1X PRN PRN MM FOR REBEKAH Last administered on 06/14/17 13:14; Start 06/14/17 at 09:00; Stop 06/14/17 at 18:00 ; Status DC Benzocaine (Hurricaine One) 3 spray 1X ONCE MM Last administered on 06/14/17 13:14; Start 06/14/17 at 07:00; Stop 06/14/17 at 07:01; Status DC Lidocaine HCl (Xylocaine 2% Topical 5gm Tube) 1 grant 1X ONCE TP Last administered on 06/14/17 13:17; Start 06/14/17 at 07:00; Stop 06/14/17 at 07:01 ; Status DC Lidocaine HCl (Xylocaine 2% Topical 30gm Tube) 30 grant STK-MED ONCE TP ; Start at 10:57; Stop 06/14/17 at 10:58; Status DC Ondansetron HCl (Zofran) 4 mg PRN Q6HRS PRN IV NAUSEA/VOMITING; Start 06/14/17 at 11:45; Stop 06/15/17 at 11:44; Status DC Fentanyl Citrate (Fentanyl 2ml Vial) 25 mcg PRN Q5MIN PRN IV MILD PAIN; Start 06/14/17 at 11:45; Stop 06/15/17 at 11:44; Status DC Fentanyl Citrate (Fentanyl 2ml Vial) 50 mcg PRN Q5MIN PRN IV MODERATE PAIN; Start 06/14/17 at 11:45; Stop 06/15/17 at 11:44; Status DC Morphine Sulfate 1 mg PRN Q10MIN PRN IV SEVERE PAIN; Start 06/14/17 at 11:45; Stop 06/15/17 at 11:44; Status DC Ringer's Solution 1,000 ml @ 30 mls/hr Q24H IV Last administered on 06/14/17 11:31; Start 06/14/17 at 11:31; Stop 06/14/17 at 23:30; Status DC Lidocaine HCl (Xylocaine-Mpf 1% Vial) 2 ml 1X PRN PRN ID IV START; Start at 11:45; Stop 06/15/17 at 11:44; Status DC Hydromorphone HCl (Dilaudid) 0.5 mg PRN Q10MIN PRN IV SEV PAIN, Second choice; Start 06/14/17 at 11:45; Stop 06/15/17 at 11:44; Status DC Prochlorperazine Edisylate (Compazine) 5 mg PACU PRN PRN IV NAUSEA, MRX1; Start 06/14/17 at 11:45; Stop 06/15/17 at 11:44; Status DC Propofol 20 ml @ As Directed STK-MED ONCE IV ; Start 06/14/17 at 13:32; Stop at 13:33; Status DC Ondansetron HCl (Zofran) 4 mg PRN Q6HRS PRN IV NAUSEA/VOMITING; Start 06/15/17 at 07:00; Stop 06/16/17 at 06:59 Fentanyl Citrate (Fentanyl 2ml Vial) 25 mcg PRN Q5MIN PRN IV MILD PAIN; Start 06/15/17 at 07:00; Stop 06/16/17 at 06:59 Fentanyl Citrate (Fentanyl 2ml Vial) 50 mcg PRN Q5MIN PRN IV MODERATE PAIN; Start 06/15/17 at 07:00; Stop 06/16/17 at 06:59 Morphine Sulfate 1 mg PRN Q10MIN PRN IV SEVERE PAIN; Start 06/15/17 at 07:00; Stop 06/16/17 at 06:59 Ringer's Solution 1,000 ml @ 30 mls/hr Q24H IV ; Start 06/15/17 at 07:00; Stop 06/15/17 at 18:59 Lidocaine HCl (Xylocaine-Mpf 1% Vial) 2 ml PRN 1X PRN ID IV START; Start at 07:00; Stop 06/16/17 at 06:59 Hydromorphone HCl (Dilaudid) 0.5 mg PRN Q10MIN PRN IV SEV PAIN, Second choice; Start 06/15/17 at 07:00; Stop 06/16/17 at 06:59 Prochlorperazine Edisylate (Compazine) 5 mg PACU PRN PRN IV NAUSEA, MRX1; Start 06/15/17 at 07:00; Stop 06/16/17 at 06:59 Potassium Chloride 70 meq/ Sodium Bicarbonate 12.5 meq/Lidocaine HCl 24 ml/ Parenteral Electrolytes 571.5 ml @ 571.5 mls/ hr 1X PERIOP ONCE IRR ; Start at 06:00; Stop 06/15/17 at 06:59; Status DC Potassium Chloride 15 meq/ Sodium Bicarbonate 12.5 meq/Parenteral Electrolytes 520 ml @ 520 mls/hr 1X PERIOP ONCE IRR ; Start 06/15/17 at 06:00; Stop at 06:59; Status DC Heparin Sodium (Porcine) 61400 unit/Ringer's Solution 1,020 ml @ 1,020 mls/hr 1X PERIOP ONCE IRR ; Start 06/15/17 at 06:00; Stop 06/15/17 at 06:59; Status DC Etomidate (Amidate) 20 mg STK-MED ONCE IV ; Start 06/15/17 at 06:14; Stop at 06:15; Status DC Lidocaine HCl (Lidocaine Pf 2% Vial) 5 ml STK-MED ONCE .ROUTE ; Start 06/15/17 at 06:14; Stop 06/15/17 at 06:15; Status DC Ephedrine Sulfate 50 mg STK-MED ONCE IV ; Start 06/15/17 at 06:14; Stop at 06:15; Status DC Phenylephrine HCl (Arthur-Synephrine Inj) 10 mg STK-MED ONCE .ROUTE ; Start at 06:15; Stop 06/15/17 at 06:16; Status DC Rocuronium [place] (Zemuron) 100 mg STK-MED ONCE .ROUTE ; Start 06/15/17 at 06: 15; Stop 06/15/17 at 06:16; Status DC Heparin Sodium (Porcine) 30,000 unit STK-MED ONCE .ROUTE ; Start 06/15/17 at 06: 15; Stop 06/15/17 at 06:16; Status DC Aminocaproic Acid (Amicar) 5,000 mg STK-MED ONCE IV ; Start 06/15/17 at 06:15; Stop 06/15/17 at 06:16; Status DC Nitroglycerin/ Dextrose 250 ml @ As Directed STK-MED ONCE IV ; Start 06/15/17 at 06:15; Stop 06/15/17 at 06:16; Status DC Sufentanil Citrate (Sufenta) 100 mcg STK-MED ONCE .ROUTE ; Start 06/15/17 at 06: 17; Stop 06/15/17 at 06:18; Status DC Midazolam HCl (Versed) 2 mg STK-MED ONCE .ROUTE ; Start 06/15/17 at 06:20; Stop 06/15/17 at 06:21; Status DC Cefazolin Sodium/ Dextrose 50 ml @ 100 mls/hr 1X PREOP ONCE IV ; Start at 07:45; Stop 06/15/17 at 08:14; Status DC Active Scripts Active Reported [none] Vitals/I & O Vital Sign - Last 24 Hours 06/14/17 06/14/17 06/14/17 06/14/17 19:55 20:23 20:30 22:55 Temp 97.6 98.4 97.6 98.4 Pulse 62 62 54 Resp 18 18 B/P (MAP) 138/71 (93) 138/71 140/79 (99) Pulse Ox 98 99 O2 Delivery Room Air Room Air Room Air 06/15/17 06/15/17 06/15/17 06/15/17 03:05 07:00 08:10 09:18 Temp 98.3 98.1 98.3 98.1 Pulse 53 54 72 Resp 18 18 B/P (MAP) 133/65 (87) 139/82 (101) 139/82 Pulse Ox 100 96 O2 Delivery Room Air Room Air Room Air 06/15/17 06/15/17 11:06 15:14 Temp 98.2 98.4 98.2 98.4 Pulse 59 53 Resp 20 18 B/P (MAP) 132/67 (88) 129/76 (93) Pulse Ox 97 97 O2 Delivery Room Air Room Air Intake and Output 06/15/17 06/15/17 06/16/17 15:00 23:00 07:00 Intake Total 700 ml Balance 700 ml RICH JEREZ MD Jun 15, 2017 18:32
[2017-06-15 19:30] VITALS: BP 140/72
[2017-06-15 23:00] VITALS: BP 119/66
[2017-06-16 03:00] VITALS: BP 118/63
[2017-06-16 04:39] LABS: BASO # 0.1 x10^3/uL (0.0-0.2); BASO % 1 % (0-3); EOS % 6 % (0-3); HEMATOCRIT 42.8 % (39.0-53.0); HEMOGLOBIN 14.6 g/dL (13.0-17.5); LYMPH # 1.7 x10^3/uL (1.0-4.8); LYMPH % 35 % (24-48); MEAN CORPUSCULAR HEMOGLOBIN 33 pg (25-35); MEAN CORPUSCULAR HGB CONC 34 g/dL (31-37); MEAN CORPUSCULAR VOLUME 98 fL (79-100); MONO % 15 % (0-9); NEUT % 42 % (31-73); PLATELET COUNT 209 x10^3/uL (140-400); RED BLOOD COUNT 4.37 x10^6/uL (4.30-5.70); RED CELL DISTRIBUTION WIDTH 12.6 % (11.5-14.5); WHITE BLOOD COUNT 4.9 x10^3/uL (4.0-11.0)
[2017-06-16 05:05] LABS: CALCIUM 9.4 mg/dL (8.5-10.1); CREATININE 1.1 mg/dL (0.7-1.3); GFR 81.3; POTASSIUM 4.6 mmol/L (3.5-5.1)
[2017-06-16 07:00] VITALS: BP 120/68
[2017-06-16] MEDS: FOLIC ACID 1 MG TABLET. PO SCH (09:00)
[2017-06-16] MEDS: VITAMIN B12,B9,B6 COMPLEX 1 TABLET. PO SCH (09:00)
[2017-06-16] MEDS: THIAMINE 100 MG TABLET. PO SCH (09:00)
[2017-06-16] MEDS: METOPROLOL TART IMMED RELEASE 25 MG TABLET. PO SCH ×2 (09:00→21:47)
--- NOTE | 2017-06-16 10:55 | PDOC ---
PROGRESS NOTES Chief Complaint Chief Complaint Aneurysm, Cardiac by REBEKAH exertional dyspnea with CHF likely chest pain with dyspnea chronic combined systolic and diastolic CHF,, est EF 40% on MPI H/O CAD 2013 with 1 stent at obtuse marginal branch HTN poor control, noncompliant with emds alcohol abuse d/o, prior tobaccoism leg weakness, unsteady gait and peripheral neuropathy History of Present Illness History of Present Illness REBEKAH done wednesday shows aneurysm Now scheduled for viability testing and pending that will decide if CABG or PCI Eating lunch now with multiple fam members, no SOA or CP PLAN: CPM Viability testing today NO new IM orders Dw RN Moe Vitals Vitals Vital Signs Date Time Temp Pulse Resp B/P (MAP) Pulse Ox O2 Delivery O2 Flow Rate FiO2 06/16/17 08:20 Room Air 06/16/17 07:00 98.1 48 18 120/68 (85) 96 98.1 Physical Exam General: Alert, Oriented X3, No acute distress Heart: Regular rate, Normal S1, Normal S2 Lungs: Clear Abdomen: Soft, No tenderness Extremities: No edema Skin: No rashes, No significant lesion Labs LABS Laboratory Tests Test 06/16/17 04:18 White Blood Count 4.9 x10^3/uL (4.0-11.0) Red Blood Count 4.37 x10^6/uL (4.30-5.70) Hemoglobin 14.6 g/dL (13.0-17.5) Hematocrit 42.8 % (39.0-53.0) Mean Corpuscular Volume 98 fL (79-100) Mean Corpuscular Hemoglobin 33 pg (25-35) Mean Corpuscular Hemoglobin Concent 34 g/dL (31-37) Red Cell Distribution Width 12.6 % (11.5-14.5) Platelet Count 209 x10^3/uL (140-400) Neutrophils (%) (Auto) 42 % (31-73) Lymphocytes (%) (Auto) 35 % (24-48) Monocytes (%) (Auto) 15 % (0-9) Eosinophils (%) (Auto) 6 % (0-3) Basophils (%) (Auto) 1 % (0-3) Neutrophils # (Auto) 2.1 x10^3uL (1.8-7.7) Lymphocytes # (Auto) 1.7 x10^3/uL (1.0-4.8) Monocytes # (Auto) 0.8 x10^3/uL (0.0-1.1) Eosinophils # (Auto) 0.3 x10^3/uL (0.0-0.7) Basophils # (Auto) 0.1 x10^3/uL (0.0-0.2) Sodium Level 140 mmol/L (136-145) Potassium Level 4.6 mmol/L (3.5-5.1) Chloride Level 104 mmol/L (98-107) Carbon Dioxide Level 29 mmol/L (21-32) Anion Gap 7 (6-14) Blood Urea Nitrogen 16 mg/dL (8-26) Creatinine 1.1 mg/dL (0.7-1.3) Estimated GFR (Cockcroft-Gault) 81.3 Glucose Level 97 mg/dL (70-99) Calcium Level 9.4 mg/dL (8.5-10.1) Review of Systems Review of Systems denies 14 pt reviewed Assessment and Plan Assessmemt and Plan Problems Medical Problems: (1) Chest pain Status: Acute (2) Shortness of breath Status: Acute Problems: Comment Review of Relevant I have reviewed the following items chetan (where applicable) has been applied. Labs Laboratory Tests Test 06/15/17 04:20 06/16/17 04:18 White Blood Count 5.6 x10^3/uL (4.0-11.0) 4.9 x10^3/uL (4.0-11.0) Red Blood Count 4.42 x10^6/uL (4.30-5.70) 4.37 x10^6/uL (4.30-5.70) Hemoglobin 14.5 g/dL (13.0-17.5) 14.6 g/dL (13.0-17.5) Hematocrit 43.6 % (39.0-53.0) 42.8 % (39.0-53.0) Mean Corpuscular Volume 99 fL (79-100) 98 fL (79-100) Mean Corpuscular Hemoglobin 33 pg (25-35) 33 pg (25-35) Mean Corpuscular Hemoglobin Concent 33 g/dL (31-37) 34 g/dL (31-37) Red Cell Distribution Width 12.8 % (11.5-14.5) 12.6 % (11.5-14.5) Platelet Count 217 x10^3/uL (140-400) 209 x10^3/uL (140-400) Neutrophils (%) (Auto) 48 % (31-73) 42 % (31-73) Lymphocytes (%) (Auto) 30 % (24-48) 35 % (24-48) Monocytes (%) (Auto) 15 % (0-9) 15 % (0-9) Eosinophils (%) (Auto) 5 % (0-3) 6 % (0-3) Basophils (%) (Auto) 1 % (0-3) 1 % (0-3) Neutrophils # (Auto) 2.7 x10^3uL (1.8-7.7) 2.1 x10^3uL (1.8-7.7) Lymphocytes # (Auto) 1.7 x10^3/uL (1.0-4.8) 1.7 x10^3/uL (1.0-4.8) Monocytes # (Auto) 0.8 x10^3/uL (0.0-1.1) 0.8 x10^3/uL (0.0-1.1) Eosinophils # (Auto) 0.3 x10^3/uL (0.0-0.7) 0.3 x10^3/uL (0.0-0.7) Basophils # (Auto) 0.1 x10^3/uL (0.0-0.2) 0.1 x10^3/uL (0.0-0.2) Sodium Level 139 mmol/L (136-145) 140 mmol/L (136-145) Potassium Level 4.1 mmol/L (3.5-5.1) 4.6 mmol/L (3.5-5.1) Chloride Level 104 mmol/L (98-107) 104 mmol/L (98-107) Carbon Dioxide Level 28 mmol/L (21-32) 29 mmol/L (21-32) Anion Gap 7 (6-14) 7 (6-14) Blood Urea Nitrogen 15 mg/dL (8-26) 16 mg/dL (8-26) Creatinine 1.0 mg/dL (0.7-1.3) 1.1 mg/dL (0.7-1.3) Estimated GFR (Cockcroft-Gault) 90.7 81.3 Glucose Level 104 mg/dL (70-99) 97 mg/dL (70-99) Calcium Level 8.9 mg/dL (8.5-10.1) 9.4 mg/dL (8.5-10.1) Laboratory Tests Test 06/16/17 04:18 White Blood Count 4.9 x10^3/uL (4.0-11.0) Red Blood Count 4.37 x10^6/uL (4.30-5.70) Hemoglobin 14.6 g/dL (13.0-17.5) Hematocrit 42.8 % (39.0-53.0) Mean Corpuscular Volume 98 fL (79-100) Mean Corpuscular Hemoglobin 33 pg (25-35) Mean Corpuscular Hemoglobin Concent 34 g/dL (31-37) Red Cell Distribution Width 12.6 % (11.5-14.5) Platelet Count 209 x10^3/uL (140-400) Neutrophils (%) (Auto) 42 % (31-73) Lymphocytes (%) (Auto) 35 % (24-48) Monocytes (%) (Auto) 15 % (0-9) Eosinophils (%) (Auto) 6 % (0-3) Basophils (%) (Auto) 1 % (0-3) Neutrophils # (Auto) 2.1 x10^3uL (1.8-7.7) Lymphocytes # (Auto) 1.7 x10^3/uL (1.0-4.8) Monocytes # (Auto) 0.8 x10^3/uL (0.0-1.1) Eosinophils # (Auto) 0.3 x10^3/uL (0.0-0.7) Basophils # (Auto) 0.1 x10^3/uL (0.0-0.2) Sodium Level 140 mmol/L (136-145) Potassium Level 4.6 mmol/L (3.5-5.1) Chloride Level 104 mmol/L (98-107) Carbon Dioxide Level 29 mmol/L (21-32) Anion Gap 7 (6-14) Blood Urea Nitrogen 16 mg/dL (8-26) Creatinine 1.1 mg/dL (0.7-1.3) Estimated GFR (Cockcroft-Gault) 81.3 Glucose Level 97 mg/dL (70-99) Calcium Level 9.4 mg/dL (8.5-10.1) Medications Current Medications Ondansetron HCl (Zofran) 4 mg PRN Q8HRS PRN IV NAUSEA/VOMITING; Start 06/08/17 at 16:45; Stop 06/09/17 at 14:42; Status DC Morphine Sulfate 2 mg PRN Q2HR PRN IV PAIN; Start 06/08/17 at 16:45; Stop 06/09 at 14:42; Status DC Acetaminophen (Tylenol) 650 mg PRN Q6HRS PRN PO FEVER; Start 06/08/17 at 17:45 Ondansetron HCl (Zofran) 4 mg PRN Q6HRS PRN IV NAUSEA/VOMITING; Start 06/08/17 at 17:45 Morphine Sulfate 2 mg PRN Q2HR PRN IV PAIN; Start 06/08/17 at 17:45 Tramadol HCl (Ultram) 50 mg PRN Q6HRS PRN PO PAIN MILD TO MOD; Start 06/08/17 at 17:45 Hydralazine HCl (Apresoline) 10 mg PRN Q4HRS PRN IVP ELEVATED BP, SEE COMMENTS ; Start 06/08/17 at 17:45 Docusate Sodium (Colace) 100 mg PRN DAILY PRN PO CONSTIPATION; Start 06/08/17 at 17:45 Albuterol Sulfate (Ventolin Neb Soln) 2.5 mg PRN Q4HRS PRN NEB SHORTNESS OF BREATH; Start 06/08/17 at 17:45 Enoxaparin Sodium (Lovenox 40mg Syringe) 40 mg Q24H SQ Last administered on 19:41; Start 06/08/17 at 18:00; Stop 06/14/17 at 14:20; Status DC Folic Acid (Folic Acid) 1 mg DAILY PO Last administered on 06/15/17 09:17; Start 06/08/17 at 18:00 Thiamine Mononitrate (Vitamin B-1) 100 mg DAILY PO Last administered on 09:17; Start 06/08/17 at 18:00 Lorazepam (Ativan) 2 mg PRN Q4HRS PRN IV ANXIETY / AGITATION Last administered on 06/09/17 00:49; Start 06/08/17 at 17:45 Lisinopril (Prinivil) 40 mg DAILY PO ; Start 06/08/17 at 18:00; Stop 06/08/17 at 18:45; Status DC Lisinopril (Prinivil) 20 mg DAILY PO ; Start 06/09/17 at 09:00; Stop 06/11/17 at 17:13; Status DC Zolpidem Tartrate (Ambien) 5 mg PRN QHS PRN PO INSOMNIA Last administered on 23:33; Start 06/08/17 at 20:45 Vitamin B Complex (Folbic Tablet) 1 tab DAILY PO Last administered on 09:17; Start 06/09/17 at 10:30 Cyanocobalamin (Vitamin B-12) 1,000 mcg 1X ONCE IM Last administered on 13:46; Start 06/09/17 at 10:45; Stop 06/09/17 at 10:46; Status DC Regadenoson (Lexiscan) 0.4 mg 1X ONCE IV ; Start 06/10/17 at 08:45; Stop at 08:46; Status DC Regadenoson (Lexiscan) 0.4 mg STK-MED ONCE IV ; Start 06/10/17 at 09:24; Stop at 09:25; Status DC Regadenoson (Lexiscan) 0.4 mg STK-MED ONCE IV ; Start 06/10/17 at 09:24; Stop at 10:04; Status DC Iohexol (Omnipaque 300 Mg/ml) 100 ml STK-MED ONCE .ROUTE ; Start 06/11/17 at 12: 54; Stop 06/11/17 at 12:55; Status DC Lidocaine HCl 20 ml STK-MED ONCE .ROUTE ; Start 06/11/17 at 12:55; Stop at 12:56; Status DC Heparin Sodium/ Sodium Chloride 500 ml @ As Directed STK-MED ONCE .ROUTE ; Start 06/11/17 at 12:55; Stop 06/11/17 at 12:56; Status DC Midazolam HCl (Versed) 2 mg STK-MED ONCE .ROUTE ; Start 06/11/17 at 13:23; Stop 06/11/17 at 13:24; Status DC Fentanyl Citrate (Fentanyl 2ml Vial) 100 mcg STK-MED ONCE .ROUTE ; Start at 13:23; Stop 06/11/17 at 13:24; Status DC Heparin Sodium/ Sodium Chloride 1,000 unit 1X ONCE IART Last administered on 13:52; Start 06/11/17 at 13:45; Stop 06/11/17 at 13:46; Status DC Midazolam HCl (Versed) 2 mg 1X ONCE IV Last administered on 06/11/17 13:52; Start 06/11/17 at 13:45; Stop 06/11/17 at 13:46; Status DC Fentanyl Citrate (Fentanyl 2ml Vial) 100 mcg 1X ONCE IV Last administered on 13:52; Start 06/11/17 at 13:45; Stop 06/11/17 at 13:46; Status DC Iohexol (Omnipaque 300 Mg/ml) 100 ml 1X ONCE IART Last administered on 13:51; Start 06/11/17 at 13:45; Stop 06/11/17 at 13:46; Status DC Lidocaine HCl 20 ml 1X ONCE IJ Last administered on 06/11/17 13:51; Start at 13:45; Stop 06/11/17 at 13:46; Status DC Metoprolol Tartrate (Lopressor) 25 mg BID PO Last administered on 06/15/17 21: 04; Start 06/11/17 at 21:00 Iohexol (Omnipaque 300 Mg/ml) 75 ml 1X ONCE IV Last administered on 06/12/17 08:12; Start 06/12/17 at 08:30; Stop 06/12/17 at 08:31; Status DC Info (Do NOT chart on this entry -- for MONITORING) 1 each PRN DAILY PRN MC SEE COMMENTS; Start 06/12/17 at 08:15; Stop 06/14/17 at 08:14; Status DC Lidocaine HCl (Xylocaine 2% Topical 5gm Tube) 1 grant 1X ONCE TP ; Start at 14:00; Stop 06/12/17 at 14:01; Status DC Lidocaine HCl (Viscous Lidocaine) 15 ml 1X ONCE MM ; Start 06/12/17 at 14:00; Stop 06/12/17 at 14:01; Status Cancel Benzocaine (Hurricaine One) 3 spray 1X ONCE MM ; Start 06/12/17 at 14:00; Stop 06/12/17 at 14:01; Status DC Lidocaine HCl (Viscous Lidocaine) 15 ml 1X PRN PRN MM FOR REBEKAH Last administered on 06/14/17 13:14; Start 06/14/17 at 09:00; Stop 06/14/17 at 18:00 ; Status DC Benzocaine (Hurricaine One) 3 spray 1X ONCE MM Last administered on 06/14/17 13:14; Start 06/14/17 at 07:00; Stop 06/14/17 at 07:01; Status DC Lidocaine HCl (Xylocaine 2% Topical 5gm Tube) 1 grant 1X ONCE TP Last administered on 06/14/17 13:17; Start 06/14/17 at 07:00; Stop 06/14/17 at 07:01 ; Status DC Lidocaine HCl (Xylocaine 2% Topical 30gm Tube) 30 grant STK-MED ONCE TP ; Start at 10:57; Stop 06/14/17 at 10:58; Status DC Ondansetron HCl (Zofran) 4 mg PRN Q6HRS PRN IV NAUSEA/VOMITING; Start 06/14/17 at 11:45; Stop 06/15/17 at 11:44; Status DC Fentanyl Citrate (Fentanyl 2ml Vial) 25 mcg PRN Q5MIN PRN IV MILD PAIN; Start 06/14/17 at 11:45; Stop 06/15/17 at 11:44; Status DC Fentanyl Citrate (Fentanyl 2ml Vial) 50 mcg PRN Q5MIN PRN IV MODERATE PAIN; Start 06/14/17 at 11:45; Stop 06/15/17 at 11:44; Status DC Morphine Sulfate 1 mg PRN Q10MIN PRN IV SEVERE PAIN; Start 06/14/17 at 11:45; Stop 06/15/17 at 11:44; Status DC Ringer's Solution 1,000 ml @ 30 mls/hr Q24H IV Last administered on 06/14/17 11:31; Start 06/14/17 at 11:31; Stop 06/14/17 at 23:30; Status DC Lidocaine HCl (Xylocaine-Mpf 1% Vial) 2 ml 1X PRN PRN ID IV START; Start at 11:45; Stop 06/15/17 at 11:44; Status DC Hydromorphone HCl (Dilaudid) 0.5 mg PRN Q10MIN PRN IV SEV PAIN, Second choice; Start 06/14/17 at 11:45; Stop 06/15/17 at 11:44; Status DC Prochlorperazine Edisylate (Compazine) 5 mg PACU PRN PRN IV NAUSEA, MRX1; Start 06/14/17 at 11:45; Stop 06/15/17 at 11:44; Status DC Propofol 20 ml @ As Directed STK-MED ONCE IV ; Start 06/14/17 at 13:32; Stop at 13:33; Status DC Ondansetron HCl (Zofran) 4 mg PRN Q6HRS PRN IV NAUSEA/VOMITING; Start 06/15/17 at 07:00; Stop 06/16/17 at 06:59; Status DC Fentanyl Citrate (Fentanyl 2ml Vial) 25 mcg PRN Q5MIN PRN IV MILD PAIN; Start 06/15/17 at 07:00; Stop 06/16/17 at 06:59; Status DC Fentanyl Citrate (Fentanyl 2ml Vial) 50 mcg PRN Q5MIN PRN IV MODERATE PAIN; Start 06/15/17 at 07:00; Stop 06/16/17 at 06:59; Status DC Morphine Sulfate 1 mg PRN Q10MIN PRN IV SEVERE PAIN; Start 06/15/17 at 07:00; Stop 06/16/17 at 06:59; Status DC Ringer's Solution 1,000 ml @ 30 mls/hr Q24H IV ; Start 06/15/17 at 07:00; Stop 06/15/17 at 18:59; Status DC Lidocaine HCl (Xylocaine-Mpf 1% Vial) 2 ml PRN 1X PRN ID IV START; Start at 07:00; Stop 06/16/17 at 06:59; Status DC Hydromorphone HCl (Dilaudid) 0.5 mg PRN Q10MIN PRN IV SEV PAIN, Second choice; Start 06/15/17 at 07:00; Stop 06/16/17 at 06:59; Status DC Prochlorperazine Edisylate (Compazine) 5 mg PACU PRN PRN IV NAUSEA, MRX1; Start 06/15/17 at 07:00; Stop 06/16/17 at 06:59; Status DC Potassium Chloride 70 meq/ Sodium Bicarbonate 12.5 meq/Lidocaine HCl 24 ml/ Parenteral Electrolytes 571.5 ml @ 571.5 mls/ hr 1X PERIOP ONCE IRR ; Start at 06:00; Stop 06/15/17 at 06:59; Status DC Potassium Chloride 15 meq/ Sodium Bicarbonate 12.5 meq/Parenteral Electrolytes 520 ml @ 520 mls/hr 1X PERIOP ONCE IRR ; Start 06/15/17 at 06:00; Stop at 06:59; Status DC Heparin Sodium (Porcine) 69817 unit/Ringer's Solution 1,020 ml @ 1,020 mls/hr 1X PERIOP ONCE IRR ; Start 06/15/17 at 06:00; Stop 06/15/17 at 06:59; Status DC Etomidate (Amidate) 20 mg STK-MED ONCE IV ; Start 06/15/17 at 06:14; Stop at 06:15; Status DC Lidocaine HCl (Lidocaine Pf 2% Vial) 5 ml STK-MED ONCE .ROUTE ; Start 06/15/17 at 06:14; Stop 06/15/17 at 06:15; Status DC Ephedrine Sulfate 50 mg STK-MED ONCE IV ; Start 06/15/17 at 06:14; Stop at 06:15; Status DC Phenylephrine HCl (Arthur-Synephrine Inj) 10 mg STK-MED ONCE .ROUTE ; Start at 06:15; Stop 06/15/17 at 06:16; Status DC Rocuronium Gaines (Zemuron) 100 mg STK-MED ONCE .ROUTE ; Start 06/15/17 at 06: 15; Stop 06/15/17 at 06:16; Status DC Heparin Sodium (Porcine) 30,000 unit STK-MED ONCE .ROUTE ; Start 06/15/17 at 06: 15; Stop 06/15/17 at 06:16; Status DC Aminocaproic Acid (Amicar) 5,000 mg STK-MED ONCE IV ; Start 06/15/17 at 06:15; Stop 06/15/17 at 06:16; Status DC Nitroglycerin/ Dextrose 250 ml @ As Directed STK-MED ONCE IV ; Start 06/15/17 at 06:15; Stop 06/15/17 at 06:16; Status DC Sufentanil Citrate (Sufenta) 100 mcg STK-MED ONCE .ROUTE ; Start 06/15/17 at 06: 17; Stop 06/15/17 at 06:18; Status DC Midazolam HCl (Versed) 2 mg STK-MED ONCE .ROUTE ; Start 06/15/17 at 06:20; Stop 06/15/17 at 06:21; Status DC Cefazolin Sodium/ Dextrose 50 ml @ 100 mls/hr 1X PREOP ONCE IV ; Start at 07:45; Stop 06/15/17 at 08:14; Status DC Active Scripts Active Reported [none] Vitals/I & O Vital Sign - Last 24 Hours 06/15/17 06/15/17 06/15/17 06/15/17 11:06 15:14 19:30 20:00 Temp 98.2 98.4 98.0 98.2 98.4 98.0 Pulse 59 53 65 Resp 20 18 20 B/P (MAP) 132/67 (88) 129/76 (93) 140/72 (94) Pulse Ox 97 97 100 O2 Delivery Room Air Room Air Room Air Room Air 06/15/17 06/15/17 06/16/17 06/16/17 21:04 23:00 03:00 07:00 Temp 98.1 97.8 98.1 98.1 97.8 98.1 Pulse 65 51 56 48 Resp 16 18 18 B/P (MAP) 140/72 119/66 (83) 118/63 (81) 120/68 (85) Pulse Ox 99 95 96 O2 Delivery Room Air 06/16/17 08:20 O2 Delivery Room Air ONIEL COUGHLIN MD Jun 16, 2017 10:55
[2017-06-16 11:13] VITALS: BP 137/72
[2017-06-16 15:33] VITALS: BP 123/75
[2017-06-16 19:15] VITALS: BP 137/67
--- NOTE | 2017-06-16 20:32 | PDOC ---
PROGRESS NOTES Subjective Subjective Chest pains. The first views of the viability scan were done today. The last set of pictures will be done in the morning. Objective Objective Vital Signs Date Time Temp Pulse Resp B/P (MAP) Pulse Ox O2 Delivery O2 Flow Rate FiO2 06/16/17 19:15 98.1 67 18 137/67 (90) 98 Room Air 98.1 06/14/17 13:29 2 Intake and Output 06/17/17 07:00 Intake Total 1250 ml Balance 1250 ml Intake Oral 1250 ml # Voids 2 Physical Exam Physical Exam No significant changes in cardiac exam Assessment Assessment This patient with severe triple-vessel coronary artery disease and a possible left ventricular aneurysm is undergoing the viability scan to then decide on the final surgery. I have discussed this with the patient and he agrees with this approach. The last set of pictures will be done in the morning and then possible surgery on Wednesday. Problems Medical Problems: (1) Chest pain Status: Acute (2) Shortness of breath Status: Acute Comment Review of Relevant I have reviewed the following items chetan (where applicable) has been applied. Labs Laboratory Tests Test 06/15/17 04:20 06/16/17 04:18 White Blood Count 5.6 x10^3/uL (4.0-11.0) 4.9 x10^3/uL (4.0-11.0) Red Blood Count 4.42 x10^6/uL (4.30-5.70) 4.37 x10^6/uL (4.30-5.70) Hemoglobin 14.5 g/dL (13.0-17.5) 14.6 g/dL (13.0-17.5) Hematocrit 43.6 % (39.0-53.0) 42.8 % (39.0-53.0) Mean Corpuscular Volume 99 fL (79-100) 98 fL (79-100) Mean Corpuscular Hemoglobin 33 pg (25-35) 33 pg (25-35) Mean Corpuscular Hemoglobin Concent 33 g/dL (31-37) 34 g/dL (31-37) Red Cell Distribution Width 12.8 % (11.5-14.5) 12.6 % (11.5-14.5) Platelet Count 217 x10^3/uL (140-400) 209 x10^3/uL (140-400) Neutrophils (%) (Auto) 48 % (31-73) 42 % (31-73) Lymphocytes (%) (Auto) 30 % (24-48) 35 % (24-48) Monocytes (%) (Auto) 15 % (0-9) 15 % (0-9) Eosinophils (%) (Auto) 5 % (0-3) 6 % (0-3) Basophils (%) (Auto) 1 % (0-3) 1 % (0-3) Neutrophils # (Auto) 2.7 x10^3uL (1.8-7.7) 2.1 x10^3uL (1.8-7.7) Lymphocytes # (Auto) 1.7 x10^3/uL (1.0-4.8) 1.7 x10^3/uL (1.0-4.8) Monocytes # (Auto) 0.8 x10^3/uL (0.0-1.1) 0.8 x10^3/uL (0.0-1.1) Eosinophils # (Auto) 0.3 x10^3/uL (0.0-0.7) 0.3 x10^3/uL (0.0-0.7) Basophils # (Auto) 0.1 x10^3/uL (0.0-0.2) 0.1 x10^3/uL (0.0-0.2) Sodium Level 139 mmol/L (136-145) 140 mmol/L (136-145) Potassium Level 4.1 mmol/L (3.5-5.1) 4.6 mmol/L (3.5-5.1) Chloride Level 104 mmol/L (98-107) 104 mmol/L (98-107) Carbon Dioxide Level 28 mmol/L (21-32) 29 mmol/L (21-32) Anion Gap 7 (6-14) 7 (6-14) Blood Urea Nitrogen 15 mg/dL (8-26) 16 mg/dL (8-26) Creatinine 1.0 mg/dL (0.7-1.3) 1.1 mg/dL (0.7-1.3) Estimated GFR (Cockcroft-Gault) 90.7 81.3 Glucose Level 104 mg/dL (70-99) 97 mg/dL (70-99) Calcium Level 8.9 mg/dL (8.5-10.1) 9.4 mg/dL (8.5-10.1) Laboratory Tests Test 06/16/17 04:18 White Blood Count 4.9 x10^3/uL (4.0-11.0) Red Blood Count 4.37 x10^6/uL (4.30-5.70) Hemoglobin 14.6 g/dL (13.0-17.5) Hematocrit 42.8 % (39.0-53.0) Mean Corpuscular Volume 98 fL (79-100) Mean Corpuscular Hemoglobin 33 pg (25-35) Mean Corpuscular Hemoglobin Concent 34 g/dL (31-37) Red Cell Distribution Width 12.6 % (11.5-14.5) Platelet Count 209 x10^3/uL (140-400) Neutrophils (%) (Auto) 42 % (31-73) Lymphocytes (%) (Auto) 35 % (24-48) Monocytes (%) (Auto) 15 % (0-9) Eosinophils (%) (Auto) 6 % (0-3) Basophils (%) (Auto) 1 % (0-3) Neutrophils # (Auto) 2.1 x10^3uL (1.8-7.7) Lymphocytes # (Auto) 1.7 x10^3/uL (1.0-4.8) Monocytes # (Auto) 0.8 x10^3/uL (0.0-1.1) Eosinophils # (Auto) 0.3 x10^3/uL (0.0-0.7) Basophils # (Auto) 0.1 x10^3/uL (0.0-0.2) Sodium Level 140 mmol/L (136-145) Potassium Level 4.6 mmol/L (3.5-5.1) Chloride Level 104 mmol/L (98-107) Carbon Dioxide Level 29 mmol/L (21-32) Anion Gap 7 (6-14) Blood Urea Nitrogen 16 mg/dL (8-26) Creatinine 1.1 mg/dL (0.7-1.3) Estimated GFR (Cockcroft-Gault) 81.3 Glucose Level 97 mg/dL (70-99) Calcium Level 9.4 mg/dL (8.5-10.1) Medications Current Medications Ondansetron HCl (Zofran) 4 mg PRN Q8HRS PRN IV NAUSEA/VOMITING; Start 06/08/17 at 16:45; Stop 06/09/17 at 14:42; Status DC Morphine Sulfate 2 mg PRN Q2HR PRN IV PAIN; Start 06/08/17 at 16:45; Stop 06/09 at 14:42; Status DC Acetaminophen (Tylenol) 650 mg PRN Q6HRS PRN PO FEVER; Start 06/08/17 at 17:45 Ondansetron HCl (Zofran) 4 mg PRN Q6HRS PRN IV NAUSEA/VOMITING; Start 06/08/17 at 17:45 Morphine Sulfate 2 mg PRN Q2HR PRN IV PAIN; Start 06/08/17 at 17:45 Tramadol HCl (Ultram) 50 mg PRN Q6HRS PRN PO PAIN MILD TO MOD; Start 06/08/17 at 17:45 Hydralazine HCl (Apresoline) 10 mg PRN Q4HRS PRN IVP ELEVATED BP, SEE COMMENTS ; Start 06/08/17 at 17:45 Docusate Sodium (Colace) 100 mg PRN DAILY PRN PO CONSTIPATION; Start 06/08/17 at 17:45 Albuterol Sulfate (Ventolin Neb Soln) 2.5 mg PRN Q4HRS PRN NEB SHORTNESS OF BREATH; Start 06/08/17 at 17:45 Enoxaparin Sodium (Lovenox 40mg Syringe) 40 mg Q24H SQ Last administered on 19:41; Start 06/08/17 at 18:00; Stop 06/14/17 at 14:20; Status DC Folic Acid (Folic Acid) 1 mg DAILY PO Last administered on 06/15/17 09:17; Start 06/08/17 at 18:00 Thiamine Mononitrate (Vitamin B-1) 100 mg DAILY PO Last administered on 09:17; Start 06/08/17 at 18:00 Lorazepam (Ativan) 2 mg PRN Q4HRS PRN IV ANXIETY / AGITATION Last administered on 06/09/17 00:49; Start 06/08/17 at 17:45 Lisinopril (Prinivil) 40 mg DAILY PO ; Start 06/08/17 at 18:00; Stop 06/08/17 at 18:45; Status DC Lisinopril (Prinivil) 20 mg DAILY PO ; Start 06/09/17 at 09:00; Stop 06/11/17 at 17:13; Status DC Zolpidem Tartrate (Ambien) 5 mg PRN QHS PRN PO INSOMNIA Last administered on 23:33; Start 06/08/17 at 20:45 Vitamin B Complex (Folbic Tablet) 1 tab DAILY PO Last administered on 09:17; Start 06/09/17 at 10:30 Cyanocobalamin (Vitamin B-12) 1,000 mcg 1X ONCE IM Last administered on 13:46; Start 06/09/17 at 10:45; Stop 06/09/17 at 10:46; Status DC Regadenoson (Lexiscan) 0.4 mg 1X ONCE IV ; Start 06/10/17 at 08:45; Stop at 08:46; Status DC Regadenoson (Lexiscan) 0.4 mg STK-MED ONCE IV ; Start 06/10/17 at 09:24; Stop at 09:25; Status DC Regadenoson (Lexiscan) 0.4 mg STK-MED ONCE IV ; Start 06/10/17 at 09:24; Stop at 10:04; Status DC Iohexol (Omnipaque 300 Mg/ml) 100 ml STK-MED ONCE .ROUTE ; Start 06/11/17 at 12: 54; Stop 06/11/17 at 12:55; Status DC Lidocaine HCl 20 ml STK-MED ONCE .ROUTE ; Start 06/11/17 at 12:55; Stop at 12:56; Status DC Heparin Sodium/ Sodium Chloride 500 ml @ As Directed STK-MED ONCE .ROUTE ; Start 06/11/17 at 12:55; Stop 06/11/17 at 12:56; Status DC Midazolam HCl (Versed) 2 mg STK-MED ONCE .ROUTE ; Start 06/11/17 at 13:23; Stop 06/11/17 at 13:24; Status DC Fentanyl Citrate (Fentanyl 2ml Vial) 100 mcg STK-MED ONCE .ROUTE ; Start at 13:23; Stop 06/11/17 at 13:24; Status DC Heparin Sodium/ Sodium Chloride 1,000 unit 1X ONCE IART Last administered on 13:52; Start 06/11/17 at 13:45; Stop 06/11/17 at 13:46; Status DC Midazolam HCl (Versed) 2 mg 1X ONCE IV Last administered on 06/11/17 13:52; Start 06/11/17 at 13:45; Stop 06/11/17 at 13:46; Status DC Fentanyl Citrate (Fentanyl 2ml Vial) 100 mcg 1X ONCE IV Last administered on 13:52; Start 06/11/17 at 13:45; Stop 06/11/17 at 13:46; Status DC Iohexol (Omnipaque 300 Mg/ml) 100 ml 1X ONCE IART Last administered on 13:51; Start 06/11/17 at 13:45; Stop 06/11/17 at 13:46; Status DC Lidocaine HCl 20 ml 1X ONCE IJ Last administered on 06/11/17 13:51; Start at 13:45; Stop 06/11/17 at 13:46; Status DC Metoprolol Tartrate (Lopressor) 25 mg BID PO Last administered on 06/15/17 21: 04; Start 06/11/17 at 21:00 Iohexol (Omnipaque 300 Mg/ml) 75 ml 1X ONCE IV Last administered on 06/12/17 08:12; Start 06/12/17 at 08:30; Stop 06/12/17 at 08:31; Status DC Info (Do NOT chart on this entry -- for MONITORING) 1 each PRN DAILY PRN MC SEE COMMENTS; Start 06/12/17 at 08:15; Stop 06/14/17 at 08:14; Status DC Lidocaine HCl (Xylocaine 2% Topical 5gm Tube) 1 grant 1X ONCE TP ; Start at 14:00; Stop 06/12/17 at 14:01; Status DC Lidocaine HCl (Viscous Lidocaine) 15 ml 1X ONCE MM ; Start 06/12/17 at 14:00; Stop 06/12/17 at 14:01; Status Cancel Benzocaine (Hurricaine One) 3 spray 1X ONCE MM ; Start 06/12/17 at 14:00; Stop 06/12/17 at 14:01; Status DC Lidocaine HCl (Viscous Lidocaine) 15 ml 1X PRN PRN MM FOR REBEKAH Last administered on 06/14/17 13:14; Start 06/14/17 at 09:00; Stop 06/14/17 at 18:00 ; Status DC Benzocaine (Hurricaine One) 3 spray 1X ONCE MM Last administered on 06/14/17 13:14; Start 06/14/17 at 07:00; Stop 06/14/17 at 07:01; Status DC Lidocaine HCl (Xylocaine 2% Topical 5gm Tube) 1 grant 1X ONCE TP Last administered on 06/14/17 13:17; Start 06/14/17 at 07:00; Stop 06/14/17 at 07:01 ; Status DC Lidocaine HCl (Xylocaine 2% Topical 30gm Tube) 30 grant STK-MED ONCE TP ; Start at 10:57; Stop 06/14/17 at 10:58; Status DC Ondansetron HCl (Zofran) 4 mg PRN Q6HRS PRN IV NAUSEA/VOMITING; Start 06/14/17 at 11:45; Stop 06/15/17 at 11:44; Status DC Fentanyl Citrate (Fentanyl 2ml Vial) 25 mcg PRN Q5MIN PRN IV MILD PAIN; Start 06/14/17 at 11:45; Stop 06/15/17 at 11:44; Status DC Fentanyl Citrate (Fentanyl 2ml Vial) 50 mcg PRN Q5MIN PRN IV MODERATE PAIN; Start 06/14/17 at 11:45; Stop 06/15/17 at 11:44; Status DC Morphine Sulfate 1 mg PRN Q10MIN PRN IV SEVERE PAIN; Start 06/14/17 at 11:45; Stop 06/15/17 at 11:44; Status DC Ringer's Solution 1,000 ml @ 30 mls/hr Q24H IV Last administered on 06/14/17 11:31; Start 06/14/17 at 11:31; Stop 06/14/17 at 23:30; Status DC Lidocaine HCl (Xylocaine-Mpf 1% Vial) 2 ml 1X PRN PRN ID IV START; Start at 11:45; Stop 06/15/17 at 11:44; Status DC Hydromorphone HCl (Dilaudid) 0.5 mg PRN Q10MIN PRN IV SEV PAIN, Second choice; Start 06/14/17 at 11:45; Stop 06/15/17 at 11:44; Status DC Prochlorperazine Edisylate (Compazine) 5 mg PACU PRN PRN IV NAUSEA, MRX1; Start 06/14/17 at 11:45; Stop 06/15/17 at 11:44; Status DC Propofol 20 ml @ As Directed STK-MED ONCE IV ; Start 06/14/17 at 13:32; Stop at 13:33; Status DC Ondansetron HCl (Zofran) 4 mg PRN Q6HRS PRN IV NAUSEA/VOMITING; Start 06/15/17 at 07:00; Stop 06/16/17 at 06:59; Status DC Fentanyl Citrate (Fentanyl 2ml Vial) 25 mcg PRN Q5MIN PRN IV MILD PAIN; Start 06/15/17 at 07:00; Stop 06/16/17 at 06:59; Status DC Fentanyl Citrate (Fentanyl 2ml Vial) 50 mcg PRN Q5MIN PRN IV MODERATE PAIN; Start 06/15/17 at 07:00; Stop 06/16/17 at 06:59; Status DC Morphine Sulfate 1 mg PRN Q10MIN PRN IV SEVERE PAIN; Start 06/15/17 at 07:00; Stop 06/16/17 at 06:59; Status DC Ringer's Solution 1,000 ml @ 30 mls/hr Q24H IV ; Start 06/15/17 at 07:00; Stop 06/15/17 at 18:59; Status DC Lidocaine HCl (Xylocaine-Mpf 1% Vial) 2 ml PRN 1X PRN ID IV START; Start at 07:00; Stop 06/16/17 at 06:59; Status DC Hydromorphone HCl (Dilaudid) 0.5 mg PRN Q10MIN PRN IV SEV PAIN, Second choice; Start 06/15/17 at 07:00; Stop 06/16/17 at 06:59; Status DC Prochlorperazine Edisylate (Compazine) 5 mg PACU PRN PRN IV NAUSEA, MRX1; Start 06/15/17 at 07:00; Stop 06/16/17 at 06:59; Status DC Potassium Chloride 70 meq/ Sodium Bicarbonate 12.5 meq/Lidocaine HCl 24 ml/ Parenteral Electrolytes 571.5 ml @ 571.5 mls/ hr 1X PERIOP ONCE IRR ; Start at 06:00; Stop 06/15/17 at 06:59; Status DC Potassium Chloride 15 meq/ Sodium Bicarbonate 12.5 meq/Parenteral Electrolytes 520 ml @ 520 mls/hr 1X PERIOP ONCE IRR ; Start 06/15/17 at 06:00; Stop at 06:59; Status DC Heparin Sodium (Porcine) 96498 unit/Ringer's Solution 1,020 ml @ 1,020 mls/hr 1X PERIOP ONCE IRR ; Start 06/15/17 at 06:00; Stop 06/15/17 at 06:59; Status DC Etomidate (Amidate) 20 mg STK-MED ONCE IV ; Start 06/15/17 at 06:14; Stop at 06:15; Status DC Lidocaine HCl (Lidocaine Pf 2% Vial) 5 ml STK-MED ONCE .ROUTE ; Start 06/15/17 at 06:14; Stop 06/15/17 at 06:15; Status DC Ephedrine Sulfate 50 mg STK-MED ONCE IV ; Start 06/15/17 at 06:14; Stop at 06:15; Status DC Phenylephrine HCl (Arthur-Synephrine Inj) 10 mg STK-MED ONCE .ROUTE ; Start at 06:15; Stop 06/15/17 at 06:16; Status DC Rocuronium [place] (Zemuron) 100 mg STK-MED ONCE .ROUTE ; Start 06/15/17 at 06: 15; Stop 06/15/17 at 06:16; Status DC Heparin Sodium (Porcine) 30,000 unit STK-MED ONCE .ROUTE ; Start 06/15/17 at 06: 15; Stop 06/15/17 at 06:16; Status DC Aminocaproic Acid (Amicar) 5,000 mg STK-MED ONCE IV ; Start 06/15/17 at 06:15; Stop 9/26/17 at 06:16; Status DC Nitroglycerin/ Dextrose 250 ml @ As Directed STK-MED ONCE IV ; Start 06/15/17 at 06:15; Stop 06/15/17 at 06:16; Status DC Sufentanil Citrate (Sufenta) 100 mcg STK-MED ONCE .ROUTE ; Start 06/15/17 at 06: 17; Stop 06/15/17 at 06:18; Status DC Midazolam HCl (Versed) 2 mg STK-MED ONCE .ROUTE ; Start 06/15/17 at 06:20; Stop 06/15/17 at 06:21; Status DC Cefazolin Sodium/ Dextrose 50 ml @ 100 mls/hr 1X PREOP ONCE IV ; Start at 07:45; Stop 06/15/17 at 08:14; Status DC Active Scripts Active Reported [none] Vitals/I & O Vital Sign - Last 24 Hours 06/15/17 06/15/17 06/16/17 06/16/17 21:04 23:00 03:00 07:00 Temp 98.1 97.8 98.1 98.1 97.8 98.1 Pulse 65 51 56 48 Resp 16 18 18 B/P (MAP) 140/72 119/66 (83) 118/63 (81) 120/68 (85) Pulse Ox 99 95 96 O2 Delivery Room Air 06/16/17 06/16/17 06/16/17 06/16/17 08:20 11:13 15:33 19:15 Temp 98.1 98.0 98.1 98.1 98.0 98.1 Pulse 65 60 67 Resp 18 18 B/P (MAP) 137/72 (93) 123/75 (91) 137/67 (90) Pulse Ox 97 92 98 O2 Delivery Room Air Room Air Room Air Room Air Intake and Output 06/16/17 06/16/17 06/17/17 15:00 23:00 07:00 Intake Total 1250 ml Balance 1250 ml RICH JEREZ MD Jun 16, 2017 20:32
[2017-06-16 22:40] VITALS: BP 142/70
[2017-06-17 03:00] VITALS: BP 104/62
[2017-06-17 07:00] VITALS: BP 115/61
[2017-06-17] MEDS: METOPROLOL TART IMMED RELEASE 25 MG TABLET. PO SCH ×2 (09:46→22:09)
[2017-06-17] MEDS: FOLIC ACID 1 MG TABLET. PO SCH (09:46)
[2017-06-17] MEDS: THIAMINE 100 MG TABLET. PO SCH (09:46)
[2017-06-17] MEDS: VITAMIN B12,B9,B6 COMPLEX 1 TABLET. PO SCH (09:46)
--- NOTE | 2017-06-17 10:08 | PDOC ---
PROGRESS NOTES Chief Complaint Chief Complaint Aneurysm, Cardiac by REBEKAH exertional dyspnea with CHF likely chest pain with dyspnea chronic combined systolic and diastolic CHF,, est EF 40% on MPI H/O CAD 2013 with 1 stent at obtuse marginal branch HTN poor control, noncompliant with emds alcohol abuse d/o, prior tobaccoism leg weakness, unsteady gait and peripheral neuropathy History of Present Illness History of Present Illness NO issues Walking in the room, no sxs HAd the last images of viability testing taken this AM Planned tentatively for OR wednesday - and he seems ok with it PLAN: CPM Viability testing results today PLans of open heart sx wednesday NPO post mN Dw RN and pt Vitals Vitals Vital Signs Date Time Temp Pulse Resp B/P (MAP) Pulse Ox O2 Delivery O2 Flow Rate FiO2 06/17/17 09:46 53 115/61 06/17/17 07:00 97.9 16 98 Room Air 97.9 Physical Exam General: Alert, Oriented X3, No acute distress Heart: Regular rate, Normal S1, Normal S2 Lungs: Clear Abdomen: Soft, No tenderness Extremities: No edema Skin: No rashes, No significant lesion Review of Systems Review of Systems denies 14 pt Assessment and Plan Assessmemt and Plan Problems Medical Problems: (1) Chest pain Status: Acute (2) Shortness of breath Status: Acute Problems: Comment Review of Relevant I have reviewed the following items chetan (where applicable) has been applied. Labs Laboratory Tests Test 06/16/17 04:18 White Blood Count 4.9 x10^3/uL (4.0-11.0) Red Blood Count 4.37 x10^6/uL (4.30-5.70) Hemoglobin 14.6 g/dL (13.0-17.5) Hematocrit 42.8 % (39.0-53.0) Mean Corpuscular Volume 98 fL (79-100) Mean Corpuscular Hemoglobin 33 pg (25-35) Mean Corpuscular Hemoglobin Concent 34 g/dL (31-37) Red Cell Distribution Width 12.6 % (11.5-14.5) Platelet Count 209 x10^3/uL (140-400) Neutrophils (%) (Auto) 42 % (31-73) Lymphocytes (%) (Auto) 35 % (24-48) Monocytes (%) (Auto) 15 % (0-9) Eosinophils (%) (Auto) 6 % (0-3) Basophils (%) (Auto) 1 % (0-3) Neutrophils # (Auto) 2.1 x10^3uL (1.8-7.7) Lymphocytes # (Auto) 1.7 x10^3/uL (1.0-4.8) Monocytes # (Auto) 0.8 x10^3/uL (0.0-1.1) Eosinophils # (Auto) 0.3 x10^3/uL (0.0-0.7) Basophils # (Auto) 0.1 x10^3/uL (0.0-0.2) Sodium Level 140 mmol/L (136-145) Potassium Level 4.6 mmol/L (3.5-5.1) Chloride Level 104 mmol/L (98-107) Carbon Dioxide Level 29 mmol/L (21-32) Anion Gap 7 (6-14) Blood Urea Nitrogen 16 mg/dL (8-26) Creatinine 1.1 mg/dL (0.7-1.3) Estimated GFR (Cockcroft-Gault) 81.3 Glucose Level 97 mg/dL (70-99) Calcium Level 9.4 mg/dL (8.5-10.1) Medications Current Medications Ondansetron HCl (Zofran) 4 mg PRN Q8HRS PRN IV NAUSEA/VOMITING; Start 06/08/17 at 16:45; Stop 06/09/17 at 14:42; Status DC Morphine Sulfate 2 mg PRN Q2HR PRN IV PAIN; Start 06/08/17 at 16:45; Stop 06/09 at 14:42; Status DC Acetaminophen (Tylenol) 650 mg PRN Q6HRS PRN PO FEVER; Start 06/08/17 at 17:45 Ondansetron HCl (Zofran) 4 mg PRN Q6HRS PRN IV NAUSEA/VOMITING; Start 06/08/17 at 17:45 Morphine Sulfate 2 mg PRN Q2HR PRN IV PAIN; Start 06/08/17 at 17:45 Tramadol HCl (Ultram) 50 mg PRN Q6HRS PRN PO PAIN MILD TO MOD; Start 06/08/17 at 17:45 Hydralazine HCl (Apresoline) 10 mg PRN Q4HRS PRN IVP ELEVATED BP, SEE COMMENTS ; Start 06/08/17 at 17:45 Docusate Sodium (Colace) 100 mg PRN DAILY PRN PO CONSTIPATION; Start 06/08/17 at 17:45 Albuterol Sulfate (Ventolin Neb Soln) 2.5 mg PRN Q4HRS PRN NEB SHORTNESS OF BREATH; Start 06/08/17 at 17:45 Enoxaparin Sodium (Lovenox 40mg Syringe) 40 mg Q24H SQ Last administered on 19:41; Start 06/08/17 at 18:00; Stop 06/14/17 at 14:20; Status DC Folic Acid (Folic Acid) 1 mg DAILY PO Last administered on 06/17/17 09:46; Start 06/08/17 at 18:00 Thiamine Mononitrate (Vitamin B-1) 100 mg DAILY PO Last administered on 09:46; Start 06/08/17 at 18:00 Lorazepam (Ativan) 2 mg PRN Q4HRS PRN IV ANXIETY / AGITATION Last administered on 06/09/17 00:49; Start 06/08/17 at 17:45 Lisinopril (Prinivil) 40 mg DAILY PO ; Start 06/08/17 at 18:00; Stop 06/08/17 at 18:45; Status DC Lisinopril (Prinivil) 20 mg DAILY PO ; Start 06/09/17 at 09:00; Stop 06/11/17 at 17:13; Status DC Zolpidem Tartrate (Ambien) 5 mg PRN QHS PRN PO INSOMNIA Last administered on 23:33; Start 06/08/17 at 20:45 Vitamin B Complex (Folbic Tablet) 1 tab DAILY PO Last administered on 09:46; Start 06/09/17 at 10:30 Cyanocobalamin (Vitamin B-12) 1,000 mcg 1X ONCE IM Last administered on 13:46; Start 06/09/17 at 10:45; Stop 06/09/17 at 10:46; Status DC Regadenoson (Lexiscan) 0.4 mg 1X ONCE IV ; Start 06/10/17 at 08:45; Stop at 08:46; Status DC Regadenoson (Lexiscan) 0.4 mg STK-MED ONCE IV ; Start 06/10/17 at 09:24; Stop at 09:25; Status DC Regadenoson (Lexiscan) 0.4 mg STK-MED ONCE IV ; Start 06/10/17 at 09:24; Stop at 10:04; Status DC Iohexol (Omnipaque 300 Mg/ml) 100 ml STK-MED ONCE .ROUTE ; Start 06/11/17 at 12: 54; Stop 06/11/17 at 12:55; Status DC Lidocaine HCl 20 ml STK-MED ONCE .ROUTE ; Start 06/11/17 at 12:55; Stop at 12:56; Status DC Heparin Sodium/ Sodium Chloride 500 ml @ As Directed STK-MED ONCE .ROUTE ; Start 06/11/17 at 12:55; Stop 06/11/17 at 12:56; Status DC Midazolam HCl (Versed) 2 mg STK-MED ONCE .ROUTE ; Start 06/11/17 at 13:23; Stop 06/11/17 at 13:24; Status DC Fentanyl Citrate (Fentanyl 2ml Vial) 100 mcg STK-MED ONCE .ROUTE ; Start at 13:23; Stop 06/11/17 at 13:24; Status DC Heparin Sodium/ Sodium Chloride 1,000 unit 1X ONCE IART Last administered on 13:52; Start 06/11/17 at 13:45; Stop 06/11/17 at 13:46; Status DC Midazolam HCl (Versed) 2 mg 1X ONCE IV Last administered on 06/11/17 13:52; Start 06/11/17 at 13:45; Stop 06/11/17 at 13:46; Status DC Fentanyl Citrate (Fentanyl 2ml Vial) 100 mcg 1X ONCE IV Last administered on 13:52; Start 06/11/17 at 13:45; Stop 06/11/17 at 13:46; Status DC Iohexol (Omnipaque 300 Mg/ml) 100 ml 1X ONCE IART Last administered on 13:51; Start 06/11/17 at 13:45; Stop 06/11/17 at 13:46; Status DC Lidocaine HCl 20 ml 1X ONCE IJ Last administered on 06/11/17 13:51; Start at 13:45; Stop 06/11/17 at 13:46; Status DC Metoprolol Tartrate (Lopressor) 25 mg BID PO Last administered on 06/17/17 09: 46; Start 06/11/17 at 21:00 Iohexol (Omnipaque 300 Mg/ml) 75 ml 1X ONCE IV Last administered on 06/12/17 08:12; Start 06/12/17 at 08:30; Stop 06/12/17 at 08:31; Status DC Info (Do NOT chart on this entry -- for MONITORING) 1 each PRN DAILY PRN MC SEE COMMENTS; Start 06/12/17 at 08:15; Stop 06/14/17 at 08:14; Status DC Lidocaine HCl (Xylocaine 2% Topical 5gm Tube) 1 grant 1X ONCE TP ; Start at 14:00; Stop 06/12/17 at 14:01; Status DC Lidocaine HCl (Viscous Lidocaine) 15 ml 1X ONCE MM ; Start 06/12/17 at 14:00; Stop 06/12/17 at 14:01; Status Cancel Benzocaine (Hurricaine One) 3 spray 1X ONCE MM ; Start 06/12/17 at 14:00; Stop 06/12/17 at 14:01; Status DC Lidocaine HCl (Viscous Lidocaine) 15 ml 1X PRN PRN MM FOR REBEKAH Last administered on 06/14/17 13:14; Start 06/14/17 at 09:00; Stop 06/14/17 at 18:00 ; Status DC Benzocaine (Hurricaine One) 3 spray 1X ONCE MM Last administered on 06/14/17 13:14; Start 06/14/17 at 07:00; Stop 06/14/17 at 07:01; Status DC Lidocaine HCl (Xylocaine 2% Topical 5gm Tube) 1 grant 1X ONCE TP Last administered on 06/14/17 13:17; Start 06/14/17 at 07:00; Stop 06/14/17 at 07:01 ; Status DC Lidocaine HCl (Xylocaine 2% Topical 30gm Tube) 30 grant STK-MED ONCE TP ; Start at 10:57; Stop 06/14/17 at 10:58; Status DC Ondansetron HCl (Zofran) 4 mg PRN Q6HRS PRN IV NAUSEA/VOMITING; Start 06/14/17 at 11:45; Stop 06/15/17 at 11:44; Status DC Fentanyl Citrate (Fentanyl 2ml Vial) 25 mcg PRN Q5MIN PRN IV MILD PAIN; Start 06/14/17 at 11:45; Stop 06/15/17 at 11:44; Status DC Fentanyl Citrate (Fentanyl 2ml Vial) 50 mcg PRN Q5MIN PRN IV MODERATE PAIN; Start 06/14/17 at 11:45; Stop 06/15/17 at 11:44; Status DC Morphine Sulfate 1 mg PRN Q10MIN PRN IV SEVERE PAIN; Start 06/14/17 at 11:45; Stop 06/15/17 at 11:44; Status DC Ringer's Solution 1,000 ml @ 30 mls/hr Q24H IV Last administered on 06/14/17t 11:31; Start 06/14/17 at 11:31; Stop 06/14/17 at 23:30; Status DC Lidocaine HCl (Xylocaine-Mpf 1% Vial) 2 ml 1X PRN PRN ID IV START; Start at 11:45; Stop 06/15/17 at 11:44; Status DC Hydromorphone HCl (Dilaudid) 0.5 mg PRN Q10MIN PRN IV SEV PAIN, Second choice; Start 06/14/17 at 11:45; Stop 06/15/17 at 11:44; Status DC Prochlorperazine Edisylate (Compazine) 5 mg PACU PRN PRN IV NAUSEA, MRX1; Start 06/14/17 at 11:45; Stop 06/15/17 at 11:44; Status DC Propofol 20 ml @ As Directed STK-MED ONCE IV ; Start 06/14/17 at 13:32; Stop at 13:33; Status DC Ondansetron HCl (Zofran) 4 mg PRN Q6HRS PRN IV NAUSEA/VOMITING; Start 06/15/17 at 07:00; Stop 06/16/17 at 06:59; Status DC Fentanyl Citrate (Fentanyl 2ml Vial) 25 mcg PRN Q5MIN PRN IV MILD PAIN; Start 06/15/17 at 07:00; Stop 06/16/17 at 06:59; Status DC Fentanyl Citrate (Fentanyl 2ml Vial) 50 mcg PRN Q5MIN PRN IV MODERATE PAIN; Start 06/15/17 at 07:00; Stop 06/16/17 at 06:59; Status DC Morphine Sulfate 1 mg PRN Q10MIN PRN IV SEVERE PAIN; Start 06/15/17 at 07:00; Stop 06/16/17 at 06:59; Status DC Ringer's Solution 1,000 ml @ 30 mls/hr Q24H IV ; Start 06/15/17 at 07:00; Stop 06/15/17 at 18:59; Status DC Lidocaine HCl (Xylocaine-Mpf 1% Vial) 2 ml PRN 1X PRN ID IV START; Start at 07:00; Stop 06/16/17 at 06:59; Status DC Hydromorphone HCl (Dilaudid) 0.5 mg PRN Q10MIN PRN IV SEV PAIN, Second choice; Start 06/15/17 at 07:00; Stop 06/16/17 at 06:59; Status DC Prochlorperazine Edisylate (Compazine) 5 mg PACU PRN PRN IV NAUSEA, MRX1; Start 06/15/17 at 07:00; Stop 06/16/17 at 06:59; Status DC Potassium Chloride 70 meq/ Sodium Bicarbonate 12.5 meq/Lidocaine HCl 24 ml/ Parenteral Electrolytes 571.5 ml @ 571.5 mls/ hr 1X PERIOP ONCE IRR ; Start at 06:00; Stop 06/15/17 at 06:59; Status DC Potassium Chloride 15 meq/ Sodium Bicarbonate 12.5 meq/Parenteral Electrolytes 520 ml @ 520 mls/hr 1X PERIOP ONCE IRR ; Start 06/15/17 at 06:00; Stop at 06:59; Status DC Heparin Sodium (Porcine) 62697 unit/Ringer's Solution 1,020 ml @ 1,020 mls/hr 1X PERIOP ONCE IRR ; Start 06/15/17 at 06:00; Stop 06/15/17 at 06:59; Status DC Etomidate (Amidate) 20 mg STK-MED ONCE IV ; Start 06/15/17 at 06:14; Stop at 06:15; Status DC Lidocaine HCl (Lidocaine Pf 2% Vial) 5 ml STK-MED ONCE .ROUTE ; Start 06/15/17 at 06:14; Stop 06/15/17 at 06:15; Status DC Ephedrine Sulfate 50 mg STK-MED ONCE IV ; Start 06/15/17 at 06:14; Stop at 06:15; Status DC Phenylephrine HCl (Arthur-Synephrine Inj) 10 mg STK-MED ONCE .ROUTE ; Start at 06:15; Stop 06/15/17 at 06:16; Status DC Rocuronium [place] (Zemuron) 100 mg STK-MED ONCE .ROUTE ; Start 06/15/17 at 06: 15; Stop 06/15/17 at 06:16; Status DC Heparin Sodium (Porcine) 30,000 unit STK-MED ONCE .ROUTE ; Start 06/15/17 at 06: 15; Stop 06/15/17 at 06:16; Status DC Aminocaproic Acid (Amicar) 5,000 mg STK-MED ONCE IV ; Start 06/15/17 at 06:15; Stop 06/15/17 at 06:16; Status DC Nitroglycerin/ Dextrose 250 ml @ As Directed STK-MED ONCE IV ; Start 06/15/17 at 06:15; Stop 06/15/17 at 06:16; Status DC Sufentanil Citrate (Sufenta) 100 mcg STK-MED ONCE .ROUTE ; Start 06/15/17 at 06: 17; Stop 06/15/17 at 06:18; Status DC Midazolam HCl (Versed) 2 mg STK-MED ONCE .ROUTE ; Start 06/15/17 at 06:20; Stop 06/15/17 at 06:21; Status DC Cefazolin Sodium/ Dextrose 50 ml @ 100 mls/hr 1X PREOP ONCE IV ; Start at 07:45; Stop 06/15/17 at 08:14; Status DC Cefazolin Sodium 1 gm/Sodium Chloride 500 ml @ 500 mls/hr 1X PERIOP ONCE IRR ; Start 06/18/17 at 06:00; Stop 06/18/17 at 06:59 Potassium Chloride 70 meq/ Sodium Bicarbonate 12.5 meq/Lidocaine HCl 24 ml/ Parenteral Electrolytes 571.5 ml @ 571.5 mls/ hr 1X PERIOP ONCE IRR ; Start at 06:00; Stop 06/18/17 at 06:59 Potassium Chloride 15 meq/ Sodium Bicarbonate 12.5 meq/Parenteral Electrolytes 520 ml @ 520 mls/hr 1X PERIOP ONCE IRR ; Start 06/18/17 at 06:00; Stop at 06:59 Heparin Sodium (Porcine) 47369 unit/Ringer's Solution 1,020 ml @ 1,020 mls/hr 1X PERIOP ONCE IRR ; Start 06/18/17 at 06:00; Stop 06/18/17 at 06:59 Active Scripts Active Reported [none] Vitals/I & O Vital Sign - Last 24 Hours 06/16/17 06/16/17 06/16/17 06/16/17 11:13 15:33 19:15 20:00 Temp 98.1 98.0 98.1 98.1 98.0 98.1 Pulse 65 60 67 Resp 18 18 B/P (MAP) 137/72 (93) 123/75 (91) 137/67 (90) Pulse Ox 97 92 98 O2 Delivery Room Air Room Air Room Air Room Air 06/16/17 06/16/17 06/17/17 06/17/17 21:47 22:40 03:00 07:00 Temp 97.8 97.6 97.9 97.8 97.6 97.9 Pulse 71 60 48 53 Resp 18 18 16 B/P (MAP) 137/67 142/70 (94) 104/62 (76) 115/61 (79) Pulse Ox 100 98 98 O2 Delivery Room Air Room Air Room Air 06/17/17 09:46 Pulse 53 B/P (MAP) 115/61 ONIEL COUGHLIN MD Jun 17, 2017 10:08
[2017-06-17 11:00] VITALS: BP 114/56
--- NOTE | 2017-06-17 11:12 | RAD ---
APPROVED REPORT Imaging Protocol IMAGE PROTOCOL: Viability only Rest: Stress: Viability: Radiopharm.Thallium Dose5.0mCi Img Date 06/16/2017 Viability without Stress The patient was injected with 4mCi of Thallium 201 in the IV - Right Forearm by BELGICA Willoughby at 06/16/2017, 1000 Date/Time. Initial Imaging was performed by BELGICA Willoughby at 06/16/2017, 1115 Date/Time. The patient was injected with 1mCi of Thallium 201 in the IV - Right Forearm by BELGICA Willoughby at 06/16/2017, 1200 Date/Time. Delayed Images were acquired by BELGICA Willoughby at 06/16/2017, 1430 Date/Time. 24 Hour Delayed Images were acquired by BELGICA Christensen at 06/17/2017, 0830 Date/Time. Motion Correction: No LV Perf. Quant 17 Seg. SSS7.50 17 Seg. SRS10.00 17 Seg. SDS1.50 Stress Defect Extent (% LAD)37.50Rest Defect Extent (% LAD)42.20Rev. Defect Extent (% LAD)5.00 Stress Defect Extent (% LCX) 5.65Rest Defect Extent (% LCX)7.55Rev. Defect Extent (% LCX)1.90 Stress Defect Extent (% RCA)0.00Rest Defect Extent (% RCA)0.00Rev. Defect Extent (% RCA)0.00 Stress Defect Extent (% JORDYN)18.60Rest Defect Extent (% JORDYN)21.30Rev. Defect Extent (% JORDYN)3.35 Delay and Viability Reg. Stress Perf. Score/SegExt. Delay Perf Defect (LAD)40.60 Reg. Rest Perf. Score/SegExt. Delay Perf Defect (LCX)7.50 Reg. Delay Perf. Score/SegExt. Delay Perf Defect (RCA)0.00 Summed Delay Score12.00Ext. Delay Perf Defect (JORDYN)20.70 Ext. Viability (LAD)20.00 # Seg/Reg. in Scoring OverlayExt. Viability (LCX)6.00 # Seg/Reg. in Scoring OverlayExt. Viability (RCA)0.00 Ext. Viability (JORDYN)13.00 Conclusion 1. Viability study was performed utilizing thallium-201. 2. 4 millicuries of thallium was injected IV. Images were obtained. 3. An additional 1 mCi of thallium was injected and 4 hourn delayed images were obtained. 4. 24-hour delayed images were obtained the next day. 5. Nonviable myocardium is seen over about 30% of the apex. The rest of the apex shows at least 60% viability. 6. Nonviable myocardium is seen over about to 35% of the anterior wall. The rest of the anterior wall is viable 7. This is over the distribution of the left anterior descending coronary artery. 8. The myocardium in the distribution of the right coronary artery and the circumflex coronary artery is totally viable.
[2017-06-17 15:00] VITALS: BP 120/59
--- NOTE | 2017-06-17 16:16 | PDOC ---
PROGRESS NOTES Subjective Subjective No chest pains. The viability studies shows reversibility of ischemia in the anterior wall with some viable muscle and the lateral wall is all viable. Objective Objective Vital Signs Date Time Temp Pulse Resp B/P (MAP) Pulse Ox O2 Delivery O2 Flow Rate FiO2 06/17/17 11:00 98.2 55 16 114/56 (75) 98 Room Air 98.2 06/14/17 13:29 2 Physical Exam Physical Exam No significant changes in cardiac exam Assessment Assessment compensated. Severe coronary artery disease. The patient has viable myocardium on the anterior wall as well as the lateral wall therefore he is going for bypass surgery tomorrow and then depending on the findings during this surgery this surgeons will determine if they want to do an aneurysm resection. Problems Medical Problems: (1) Chest pain Status: Acute (2) Shortness of breath Status: Acute Comment Review of Relevant I have reviewed the following items chetan (where applicable) has been applied. Labs Laboratory Tests Test 06/16/17 04:18 White Blood Count 4.9 x10^3/uL (4.0-11.0) Red Blood Count 4.37 x10^6/uL (4.30-5.70) Hemoglobin 14.6 g/dL (13.0-17.5) Hematocrit 42.8 % (39.0-53.0) Mean Corpuscular Volume 98 fL (79-100) Mean Corpuscular Hemoglobin 33 pg (25-35) Mean Corpuscular Hemoglobin Concent 34 g/dL (31-37) Red Cell Distribution Width 12.6 % (11.5-14.5) Platelet Count 209 x10^3/uL (140-400) Neutrophils (%) (Auto) 42 % (31-73) Lymphocytes (%) (Auto) 35 % (24-48) Monocytes (%) (Auto) 15 % (0-9) Eosinophils (%) (Auto) 6 % (0-3) Basophils (%) (Auto) 1 % (0-3) Neutrophils # (Auto) 2.1 x10^3uL (1.8-7.7) Lymphocytes # (Auto) 1.7 x10^3/uL (1.0-4.8) Monocytes # (Auto) 0.8 x10^3/uL (0.0-1.1) Eosinophils # (Auto) 0.3 x10^3/uL (0.0-0.7) Basophils # (Auto) 0.1 x10^3/uL (0.0-0.2) Sodium Level 140 mmol/L (136-145) Potassium Level 4.6 mmol/L (3.5-5.1) Chloride Level 104 mmol/L (98-107) Carbon Dioxide Level 29 mmol/L (21-32) Anion Gap 7 (6-14) Blood Urea Nitrogen 16 mg/dL (8-26) Creatinine 1.1 mg/dL (0.7-1.3) Estimated GFR (Cockcroft-Gault) 81.3 Glucose Level 97 mg/dL (70-99) Calcium Level 9.4 mg/dL (8.5-10.1) Medications Current Medications Ondansetron HCl (Zofran) 4 mg PRN Q8HRS PRN IV NAUSEA/VOMITING; Start 06/08/17 at 16:45; Stop 06/09/17 at 14:42; Status DC Morphine Sulfate 2 mg PRN Q2HR PRN IV PAIN; Start 06/08/17 at 16:45; Stop 06/09 at 14:42; Status DC Acetaminophen (Tylenol) 650 mg PRN Q6HRS PRN PO FEVER; Start 06/08/17 at 17:45 Ondansetron HCl (Zofran) 4 mg PRN Q6HRS PRN IV NAUSEA/VOMITING; Start 06/08/17 at 17:45 Morphine Sulfate 2 mg PRN Q2HR PRN IV PAIN; Start 06/08/17 at 17:45 Tramadol HCl (Ultram) 50 mg PRN Q6HRS PRN PO PAIN MILD TO MOD; Start 06/08/17 at 17:45 Hydralazine HCl (Apresoline) 10 mg PRN Q4HRS PRN IVP ELEVATED BP, SEE COMMENTS ; Start 06/08/17 at 17:45 Docusate Sodium (Colace) 100 mg PRN DAILY PRN PO CONSTIPATION; Start 06/08/17 at 17:45 Albuterol Sulfate (Ventolin Neb Soln) 2.5 mg PRN Q4HRS PRN NEB SHORTNESS OF BREATH; Start 06/08/17 at 17:45 Enoxaparin Sodium (Lovenox 40mg Syringe) 40 mg Q24H SQ Last administered on 19:41; Start 06/08/17 at 18:00; Stop 06/14/17 at 14:20; Status DC Folic Acid (Folic Acid) 1 mg DAILY PO Last administered on 06/17/17 09:46; Start 06/08/17 at 18:00 Thiamine Mononitrate (Vitamin B-1) 100 mg DAILY PO Last administered on 09:46; Start 06/08/17 at 18:00 Lorazepam (Ativan) 2 mg PRN Q4HRS PRN IV ANXIETY / AGITATION Last administered on 06/09/17 00:49; Start 06/08/17 at 17:45 Lisinopril (Prinivil) 40 mg DAILY PO ; Start 06/08/17 at 18:00; Stop 06/08/17 at 18:45; Status DC Lisinopril (Prinivil) 20 mg DAILY PO ; Start 06/09/17 at 09:00; Stop 06/11/17 at 17:13; Status DC Zolpidem Tartrate (Ambien) 5 mg PRN QHS PRN PO INSOMNIA Last administered on 23:33; Start 06/08/17 at 20:45 Vitamin B Complex (Folbic Tablet) 1 tab DAILY PO Last administered on 09:46; Start 06/09/17 at 10:30 Cyanocobalamin (Vitamin B-12) 1,000 mcg 1X ONCE IM Last administered on 13:46; Start 06/09/17 at 10:45; Stop 06/09/17 at 10:46; Status DC Regadenoson (Lexiscan) 0.4 mg 1X ONCE IV ; Start 06/10/17 at 08:45; Stop at 08:46; Status DC Regadenoson (Lexiscan) 0.4 mg STK-MED ONCE IV ; Start 06/10/17 at 09:24; Stop at 09:25; Status DC Regadenoson (Lexiscan) 0.4 mg STK-MED ONCE IV ; Start 06/10/17 at 09:24; Stop at 10:04; Status DC Iohexol (Omnipaque 300 Mg/ml) 100 ml STK-MED ONCE .ROUTE ; Start 06/11/17 at 12: 54; Stop 06/11/17 at 12:55; Status DC Lidocaine HCl 20 ml STK-MED ONCE .ROUTE ; Start 06/11/17 at 12:55; Stop at 12:56; Status DC Heparin Sodium/ Sodium Chloride 500 ml @ As Directed STK-MED ONCE .ROUTE ; Start 06/11/17 at 12:55; Stop 06/11/17 at 12:56; Status DC Midazolam HCl (Versed) 2 mg STK-MED ONCE .ROUTE ; Start 06/11/17 at 13:23; Stop 06/11/17 at 13:24; Status DC Fentanyl Citrate (Fentanyl 2ml Vial) 100 mcg STK-MED ONCE .ROUTE ; Start at 13:23; Stop 06/11/17 at 13:24; Status DC Heparin Sodium/ Sodium Chloride 1,000 unit 1X ONCE IART Last administered on 13:52; Start 06/11/17 at 13:45; Stop 06/11/17 at 13:46; Status DC Midazolam HCl (Versed) 2 mg 1X ONCE IV Last administered on 06/11/17 13:52; Start 06/11/17 at 13:45; Stop 06/11/17 at 13:46; Status DC Fentanyl Citrate (Fentanyl 2ml Vial) 100 mcg 1X ONCE IV Last administered on 13:52; Start 06/11/17 at 13:45; Stop 06/11/17 at 13:46; Status DC Iohexol (Omnipaque 300 Mg/ml) 100 ml 1X ONCE IART Last administered on 13:51; Start 06/11/17 at 13:45; Stop 06/11/17 at 13:46; Status DC Lidocaine HCl 20 ml 1X ONCE IJ Last administered on 06/11/17 13:51; Start at 13:45; Stop 06/11/17 at 13:46; Status DC Metoprolol Tartrate (Lopressor) 25 mg BID PO Last administered on 06/17/17 09: 46; Start 06/11/17 at 21:00 Iohexol (Omnipaque 300 Mg/ml) 75 ml 1X ONCE IV Last administered on 06/12/17 08:12; Start 06/12/17 at 08:30; Stop 06/12/17 at 08:31; Status DC Info (Do NOT chart on this entry -- for MONITORING) 1 each PRN DAILY PRN MC SEE COMMENTS; Start 06/12/17 at 08:15; Stop 06/14/17 at 08:14; Status DC Lidocaine HCl (Xylocaine 2% Topical 5gm Tube) 1 grant 1X ONCE TP ; Start at 14:00; Stop 06/12/17 at 14:01; Status DC Lidocaine HCl (Viscous Lidocaine) 15 ml 1X ONCE MM ; Start 06/12/17 at 14:00; Stop 06/12/17 at 14:01; Status Cancel Benzocaine (Hurricaine One) 3 spray 1X ONCE MM ; Start 06/12/17 at 14:00; Stop 06/12/17 at 14:01; Status DC Lidocaine HCl (Viscous Lidocaine) 15 ml 1X PRN PRN MM FOR REBEKAH Last administered on 06/14/17 13:14; Start 06/14/17 at 09:00; Stop 06/14/17 at 18:00 ; Status DC Benzocaine (Hurricaine One) 3 spray 1X ONCE MM Last administered on 06/14/17 13:14; Start 06/14/17 at 07:00; Stop 06/14/17 at 07:01; Status DC Lidocaine HCl (Xylocaine 2% Topical 5gm Tube) 1 grant 1X ONCE TP Last administered on 06/14/17 13:17; Start 06/14/17 at 07:00; Stop 06/14/17 at 07:01 ; Status DC Lidocaine HCl (Xylocaine 2% Topical 30gm Tube) 30 grant STK-MED ONCE TP ; Start at 10:57; Stop 06/14/17 at 10:58; Status DC Ondansetron HCl (Zofran) 4 mg PRN Q6HRS PRN IV NAUSEA/VOMITING; Start 06/14/17 at 11:45; Stop 06/15/17 at 11:44; Status DC Fentanyl Citrate (Fentanyl 2ml Vial) 25 mcg PRN Q5MIN PRN IV MILD PAIN; Start 06/14/17 at 11:45; Stop 06/15/17 at 11:44; Status DC Fentanyl Citrate (Fentanyl 2ml Vial) 50 mcg PRN Q5MIN PRN IV MODERATE PAIN; Start 06/14/17 at 11:45; Stop 06/15/17 at 11:44; Status DC Morphine Sulfate 1 mg PRN Q10MIN PRN IV SEVERE PAIN; Start 06/14/17 at 11:45; Stop 06/15/17 at 11:44; Status DC Ringer's Solution 1,000 ml @ 30 mls/hr Q24H IV Last administered on 06/14/17t 11:31; Start 06/14/17 at 11:31; Stop 06/14/17 at 23:30; Status DC Lidocaine HCl (Xylocaine-Mpf 1% Vial) 2 ml 1X PRN PRN ID IV START; Start at 11:45; Stop 06/15/17 at 11:44; Status DC Hydromorphone HCl (Dilaudid) 0.5 mg PRN Q10MIN PRN IV SEV PAIN, Second choice; Start 06/14/17 at 11:45; Stop 06/15/17 at 11:44; Status DC Prochlorperazine Edisylate (Compazine) 5 mg PACU PRN PRN IV NAUSEA, MRX1; Start 06/14/17 at 11:45; Stop 06/15/17 at 11:44; Status DC Propofol 20 ml @ As Directed STK-MED ONCE IV ; Start 06/14/17 at 13:32; Stop at 13:33; Status DC Ondansetron HCl (Zofran) 4 mg PRN Q6HRS PRN IV NAUSEA/VOMITING; Start 06/15/17 at 07:00; Stop 06/16/17 at 06:59; Status DC Fentanyl Citrate (Fentanyl 2ml Vial) 25 mcg PRN Q5MIN PRN IV MILD PAIN; Start 06/15/17 at 07:00; Stop 06/16/17 at 06:59; Status DC Fentanyl Citrate (Fentanyl 2ml Vial) 50 mcg PRN Q5MIN PRN IV MODERATE PAIN; Start 06/15/17 at 07:00; Stop 06/16/17 at 06:59; Status DC Morphine Sulfate 1 mg PRN Q10MIN PRN IV SEVERE PAIN; Start 06/15/17 at 07:00; Stop 06/16/17 at 06:59; Status DC Ringer's Solution 1,000 ml @ 30 mls/hr Q24H IV ; Start 06/15/17 at 07:00; Stop 06/15/17 at 18:59; Status DC Lidocaine HCl (Xylocaine-Mpf 1% Vial) 2 ml PRN 1X PRN ID IV START; Start at 07:00; Stop 06/16/17 at 06:59; Status DC Hydromorphone HCl (Dilaudid) 0.5 mg PRN Q10MIN PRN IV SEV PAIN, Second choice; Start 06/15/17 at 07:00; Stop 06/16/17 at 06:59; Status DC Prochlorperazine Edisylate (Compazine) 5 mg PACU PRN PRN IV NAUSEA, MRX1; Start 06/15/17 at 07:00; Stop 06/16/17 at 06:59; Status DC Potassium Chloride 70 meq/ Sodium Bicarbonate 12.5 meq/Lidocaine HCl 24 ml/ Parenteral Electrolytes 571.5 ml @ 571.5 mls/ hr 1X PERIOP ONCE IRR ; Start at 06:00; Stop 06/15/17 at 06:59; Status DC Potassium Chloride 15 meq/ Sodium Bicarbonate 12.5 meq/Parenteral Electrolytes 520 ml @ 520 mls/hr 1X PERIOP ONCE IRR ; Start 06/15/17 at 06:00; Stop at 06:59; Status DC Heparin Sodium (Porcine) 88146 unit/Ringer's Solution 1,020 ml @ 1,020 mls/hr 1X PERIOP ONCE IRR ; Start 06/15/17 at 06:00; Stop 06/15/17 at 06:59; Status DC Etomidate (Amidate) 20 mg STK-MED ONCE IV ; Start 06/15/17 at 06:14; Stop at 06:15; Status DC Lidocaine HCl (Lidocaine Pf 2% Vial) 5 ml STK-MED ONCE .ROUTE ; Start 06/15/17 at 06:14; Stop 06/15/17 at 06:15; Status DC Ephedrine Sulfate 50 mg STK-MED ONCE IV ; Start 06/15/17 at 06:14; Stop at 06:15; Status DC Phenylephrine HCl (Arthur-Synephrine Inj) 10 mg STK-MED ONCE .ROUTE ; Start at 06:15; Stop 06/15/17 at 06:16; Status DC Rocuronium Hyder (Zemuron) 100 mg STK-MED ONCE .ROUTE ; Start 06/15/17 at 06: 15; Stop 06/15/17 at 06:16; Status DC Heparin Sodium (Porcine) 30,000 unit STK-MED ONCE .ROUTE ; Start 06/15/17 at 06: 15; Stop 06/15/17 at 06:16; Status DC Aminocaproic Acid (Amicar) 5,000 mg STK-MED ONCE IV ; Start 06/15/17 at 06:15; Stop 06/15/17 at 06:16; Status DC Nitroglycerin/ Dextrose 250 ml @ As Directed STK-MED ONCE IV ; Start 06/15/17 at 06:15; Stop 06/15/17 at 06:16; Status DC Sufentanil Citrate (Sufenta) 100 mcg STK-MED ONCE .ROUTE ; Start 06/15/17 at 06: 17; Stop 06/15/17 at 06:18; Status DC Midazolam HCl (Versed) 2 mg STK-MED ONCE .ROUTE ; Start 06/15/17 at 06:20; Stop 06/15/17 at 06:21; Status DC Cefazolin Sodium/ Dextrose 50 ml @ 100 mls/hr 1X PREOP ONCE IV ; Start at 07:45; Stop 06/15/17 at 08:14; Status DC Cefazolin Sodium 1 gm/Sodium Chloride 500 ml @ 500 mls/hr 1X PERIOP ONCE IRR ; Start 06/18/17 at 06:00; Stop 06/18/17 at 06:59 Potassium Chloride 70 meq/ Sodium Bicarbonate 12.5 meq/Lidocaine HCl 24 ml/ Parenteral Electrolytes 571.5 ml @ 571.5 mls/ hr 1X PERIOP ONCE IRR ; Start at 06:00; Stop 06/18/17 at 06:59 Potassium Chloride 15 meq/ Sodium Bicarbonate 12.5 meq/Parenteral Electrolytes 520 ml @ 520 mls/hr 1X PERIOP ONCE IRR ; Start 06/18/17 at 06:00; Stop at 06:59 Heparin Sodium (Porcine) 91263 unit/Ringer's Solution 1,020 ml @ 1,020 mls/hr 1X PERIOP ONCE IRR ; Start 06/18/17 at 06:00; Stop 06/18/17 at 06:59 Active Scripts Active Reported [none] Vitals/I & O Vital Sign - Last 24 Hours 06/16/17 06/16/17 06/16/17 06/16/17 19:15 20:00 21:47 22:40 Temp 98.1 97.8 98.1 97.8 Pulse 67 71 60 Resp 18 18 B/P (MAP) 137/67 (90) 137/67 142/70 (94) Pulse Ox 98 100 O2 Delivery Room Air Room Air Room Air 06/17/17 06/17/17 06/17/17 06/17/17 03:00 07:00 08:00 09:46 Temp 97.6 97.9 97.6 97.9 Pulse 48 53 53 Resp 18 16 B/P (MAP) 104/62 (76) 115/61 (79) 115/61 Pulse Ox 98 98 O2 Delivery Room Air Room Air Room Air 06/17/17 11:00 Temp 98.2 98.2 Pulse 55 Resp 16 B/P (MAP) 114/56 (75) Pulse Ox 98 O2 Delivery Room Air RICH JEREZ MD Jun 17, 2017 16:15
[2017-06-17 19:25] VITALS: BP 135/63
[2017-06-17 23:08] VITALS: BP 133/75
[2017-06-18] VITALS (18 sets, daily range): BP systolic 100–190; BP diastolic 52–85
[2017-06-18] MEDS ORDERED: HEPARIN 20,000 UNIT in IV RINGERS,LACTATED 1000ML 1,000 ML IRR ONE (06:00)
[2017-06-18] MEDS ORDERED: POTASSIUM CHLORIDE 15 MEQ, SODIUM BICARBONATE VIAL 12.5 MEQ in IV ELECTROLYTE-S (PH 7.4... IRR ONE (06:00)
[2017-06-18] MEDS ORDERED: POTASSIUM CHLORIDE 70 MEQ, SODIUM BICARBONATE VIAL 12.5 MEQ, LIDOCAINE 2% 24 ML in IV E... IRR ONE (06:00)
[2017-06-18] MEDS ORDERED: 0.9 % SODIUM CHLORIDE 50 ML VIAL. IJ ONE (06:24)
[2017-06-18] MEDS ORDERED: PAPAVERINE 60 MG/2 ML VIAL FOR OR ONLY. ONE (06:24)
[2017-06-18] MEDS ORDERED: ASPIRIN 300 MG SUPP.RECT ONE (06:24)
[2017-06-18] MEDS ORDERED: VANCOMYCIN 10GM VIAL for OR. ONE (06:24)
[2017-06-18] MEDS ORDERED: SURGICEL HEMOSTAT 4X8 EACH. ONE (06:24)
[2017-06-18] MEDS ORDERED: PROCHLORPERAZINE 10 MG/2 ML VIAL. IV PRN (07:00)
[2017-06-18] MEDS ORDERED: MORPHINE SULFATE 4 MG/ML DISP.SYRIN. IV PRN (07:00)
[2017-06-18] MEDS ORDERED: fentaNYL PF VIAL 100 MCG/2 ML VIAL IV PRN ×2 (07:00)
[2017-06-18] MEDS ORDERED: ONDANSETRON PF 4 MG/2 ML VIAL. IV PRN ×2 (07:00→13:30)
[2017-06-18] MEDS ORDERED: HYDROmorphone 2 MG/ML VIAL IV PRN (07:00)
[2017-06-18] MEDS ORDERED: IV RINGERS,LACTATED 1000ML 1,000 ML IV SCH ×2 (07:00→13:22)
[2017-06-18] MEDS ORDERED: LIDOCAINE 1% PF 2 ML VIAL. ID PRN (07:00)
[2017-06-18] MEDS ORDERED: HEPARIN 30,000 UNIT/30 ML VIAL. ONE ×3 (08:24→09:40)
[2017-06-18] MEDS: FOLIC ACID 1 MG TABLET. PO SCH (09:00)
[2017-06-18] MEDS: VITAMIN B12,B9,B6 COMPLEX 1 TABLET. PO SCH (09:00)
[2017-06-18] MEDS: THIAMINE 100 MG TABLET. PO SCH (09:00)
[2017-06-18] MEDS ORDERED: MIDAZOLAM HCL/PF 5 MG/5 ML VIAL. ONE (09:04)
[2017-06-18] MEDS ORDERED: LIDOCAINE 2% PF Vial for OR 5 ML VIAL. ONE ×2 (09:41→12:19)
[2017-06-18] MEDS ORDERED: AMINOCAPROIC ACID 5,000 MG/20 ML VIAL. IV ONE (09:41)
[2017-06-18] MEDS ORDERED: ETOMIDATE 20 MG/10 ML VIAL. IV ONE (09:41)
[2017-06-18] MEDS ORDERED: PHENYLEPHRINE 10 MG/ML VIAL. ONE (09:41)
[2017-06-18] MEDS ORDERED: SUFentanil 100 MCG/2 ML AMPUL. ONE (09:42)
[2017-06-18] MEDS ORDERED: ROCURONIUM 100 MG/10 ML VIAL. ONE (09:42)
[2017-06-18] MEDS ORDERED: MIDAZOLAM HCL/PF 2 MG/2 ML VIAL. ONE (09:42)
--- NOTE | 2017-06-18 11:20 | PDOC ---
PROGRESS NOTES Chief Complaint Chief Complaint Aneurysm, Cardiac by REBEKAH exertional dyspnea with CHF likely chest pain with dyspnea chronic combined systolic and diastolic CHF,, est EF 40% on MPI H/O CAD 2013 with 1 stent at obtuse marginal branch HTN poor control, noncompliant with emds alcohol abuse d/o, prior tobaccoism leg weakness, unsteady gait and peripheral neuropathy History of Present Illness History of Present Illness Out having CABG WIll go to ICU 10 post op PLAN: Check labs post op will see later post sx Vitals Vitals Vital Signs Date Time Temp Pulse Resp B/P (MAP) Pulse Ox O2 Delivery O2 Flow Rate FiO2 06/18/17 03:30 98.0 54 18 150/85 (106) 100 Room Air 98.0 Physical Exam General: Alert, Oriented X3, No acute distress Heart: Regular rate, Normal S1, Normal S2 Lungs: Clear Abdomen: Soft, No tenderness Extremities: No edema Skin: No rashes, No significant lesion Assessment and Plan Assessmemt and Plan Problems Medical Problems: (1) Chest pain Status: Acute (2) Shortness of breath Status: Acute Problems: Comment Review of Relevant I have reviewed the following items chetan (where applicable) has been applied. Medications Current Medications Ondansetron HCl (Zofran) 4 mg PRN Q8HRS PRN IV NAUSEA/VOMITING; Start 06/08/17 at 16:45; Stop 06/09/17 at 14:42; Status DC Morphine Sulfate 2 mg PRN Q2HR PRN IV PAIN; Start 06/08/17 at 16:45; Stop 06/09 at 14:42; Status DC Acetaminophen (Tylenol) 650 mg PRN Q6HRS PRN PO FEVER; Start 06/08/17 at 17:45 Ondansetron HCl (Zofran) 4 mg PRN Q6HRS PRN IV NAUSEA/VOMITING; Start 06/08/17 at 17:45 Morphine Sulfate 2 mg PRN Q2HR PRN IV PAIN; Start 06/08/17 at 17:45 Tramadol HCl (Ultram) 50 mg PRN Q6HRS PRN PO PAIN MILD TO MOD; Start 06/08/17 at 17:45 Hydralazine HCl (Apresoline) 10 mg PRN Q4HRS PRN IVP ELEVATED BP, SEE COMMENTS ; Start 06/08/17 at 17:45 Docusate Sodium (Colace) 100 mg PRN DAILY PRN PO CONSTIPATION; Start 06/08/17 at 17:45 Albuterol Sulfate (Ventolin Neb Soln) 2.5 mg PRN Q4HRS PRN NEB SHORTNESS OF BREATH; Start 06/08/17 at 17:45 Enoxaparin Sodium (Lovenox 40mg Syringe) 40 mg Q24H SQ Last administered on 19:41; Start 06/08/17 at 18:00; Stop 06/14/17 at 14:20; Status DC Folic Acid (Folic Acid) 1 mg DAILY PO Last administered on 06/17/17 09:46; Start 06/08/17 at 18:00 Thiamine Mononitrate (Vitamin B-1) 100 mg DAILY PO Last administered on 09:46; Start 06/08/17 at 18:00 Lorazepam (Ativan) 2 mg PRN Q4HRS PRN IV ANXIETY / AGITATION Last administered on 06/09/17 00:49; Start 06/08/17 at 17:45 Lisinopril (Prinivil) 40 mg DAILY PO ; Start 06/08/17 at 18:00; Stop 06/08/17 at 18:45; Status DC Lisinopril (Prinivil) 20 mg DAILY PO ; Start 06/09/17 at 09:00; Stop 06/11/17 at 17:13; Status DC Zolpidem Tartrate (Ambien) 5 mg PRN QHS PRN PO INSOMNIA Last administered on 23:33; Start 06/08/17 at 20:45 Vitamin B Complex (Folbic Tablet) 1 tab DAILY PO Last administered on 09:46; Start 06/09/17 at 10:30 Cyanocobalamin (Vitamin B-12) 1,000 mcg 1X ONCE IM Last administered on 13:46; Start 06/09/17 at 10:45; Stop 06/09/17 at 10:46; Status DC Regadenoson (Lexiscan) 0.4 mg 1X ONCE IV ; Start 06/10/17 at 08:45; Stop at 08:46; Status DC Regadenoson (Lexiscan) 0.4 mg STK-MED ONCE IV ; Start 06/10/17 at 09:24; Stop at 09:25; Status DC Regadenoson (Lexiscan) 0.4 mg STK-MED ONCE IV ; Start 06/10/17 at 09:24; Stop at 10:04; Status DC Iohexol (Omnipaque 300 Mg/ml) 100 ml STK-MED ONCE .ROUTE ; Start 06/11/17 at 12: 54; Stop 06/11/17 at 12:55; Status DC Lidocaine HCl 20 ml STK-MED ONCE .ROUTE ; Start 06/11/17 at 12:55; Stop at 12:56; Status DC Heparin Sodium/ Sodium Chloride 500 ml @ As Directed STK-MED ONCE .ROUTE ; Start 06/11/17 at 12:55; Stop 06/11/17 at 12:56; Status DC Midazolam HCl (Versed) 2 mg STK-MED ONCE .ROUTE ; Start 06/11/17 at 13:23; Stop 06/11/17 at 13:24; Status DC Fentanyl Citrate (Fentanyl 2ml Vial) 100 mcg STK-MED ONCE .ROUTE ; Start at 13:23; Stop 06/11/17 at 13:24; Status DC Heparin Sodium/ Sodium Chloride 1,000 unit 1X ONCE IART Last administered on 13:52; Start 06/11/17 at 13:45; Stop 06/11/17 at 13:46; Status DC Midazolam HCl (Versed) 2 mg 1X ONCE IV Last administered on 06/11/17 13:52; Start 06/11/17 at 13:45; Stop 06/11/17 at 13:46; Status DC Fentanyl Citrate (Fentanyl 2ml Vial) 100 mcg 1X ONCE IV Last administered on 13:52; Start 06/11/17 at 13:45; Stop 06/11/17 at 13:46; Status DC Iohexol (Omnipaque 300 Mg/ml) 100 ml 1X ONCE IART Last administered on 13:51; Start 06/11/17 at 13:45; Stop 06/11/17 at 13:46; Status DC Lidocaine HCl 20 ml 1X ONCE IJ Last administered on 06/11/17 13:51; Start at 13:45; Stop 06/11/17 at 13:46; Status DC Metoprolol Tartrate (Lopressor) 25 mg BID PO Last administered on 06/17/17 22: 09; Start 06/11/17 at 21:00 Iohexol (Omnipaque 300 Mg/ml) 75 ml 1X ONCE IV Last administered on 06/12/17 08:12; Start 06/12/17 at 08:30; Stop 06/12/17 at 08:31; Status DC Info (Do NOT chart on this entry -- for MONITORING) 1 each PRN DAILY PRN MC SEE COMMENTS; Start 06/12/17 at 08:15; Stop 06/14/17 at 08:14; Status DC Lidocaine HCl (Xylocaine 2% Topical 5gm Tube) 1 grant 1X ONCE TP ; Start at 14:00; Stop 06/12/17 at 14:01; Status DC Lidocaine HCl (Viscous Lidocaine) 15 ml 1X ONCE MM ; Start 06/12/17 at 14:00; Stop 06/12/17 at 14:01; Status Cancel Benzocaine (Hurricaine One) 3 spray 1X ONCE MM ; Start 06/12/17 at 14:00; Stop 06/12/17 at 14:01; Status DC Lidocaine HCl (Viscous Lidocaine) 15 ml 1X PRN PRN MM FOR REBEKAH Last administered on 06/14/17 13:14; Start 06/14/17 at 09:00; Stop 06/14/17 at 18:00 ; Status DC Benzocaine (Hurricaine One) 3 spray 1X ONCE MM Last administered on 06/14/17 13:14; Start 06/14/17 at 07:00; Stop 06/14/17 at 07:01; Status DC Lidocaine HCl (Xylocaine 2% Topical 5gm Tube) 1 grant 1X ONCE TP Last administered on 06/14/17 13:17; Start 06/14/17 at 07:00; Stop 06/14/17 at 07:01 ; Status DC Lidocaine HCl (Xylocaine 2% Topical 30gm Tube) 30 grant STK-MED ONCE TP ; Start at 10:57; Stop 06/14/17 at 10:58; Status DC Ondansetron HCl (Zofran) 4 mg PRN Q6HRS PRN IV NAUSEA/VOMITING; Start 06/14/17 at 11:45; Stop 06/15/17 at 11:44; Status DC Fentanyl Citrate (Fentanyl 2ml Vial) 25 mcg PRN Q5MIN PRN IV MILD PAIN; Start 06/14/17 at 11:45; Stop 06/15/17 at 11:44; Status DC Fentanyl Citrate (Fentanyl 2ml Vial) 50 mcg PRN Q5MIN PRN IV MODERATE PAIN; Start 06/14/17 at 11:45; Stop 06/15/17 at 11:44; Status DC Morphine Sulfate 1 mg PRN Q10MIN PRN IV SEVERE PAIN; Start 06/14/17 at 11:45; Stop 06/15/17 at 11:44; Status DC Ringer's Solution 1,000 ml @ 30 mls/hr Q24H IV Last administered on 06/14/17t 11:31; Start 06/14/17 at 11:31; Stop 06/14/17 at 23:30; Status DC Lidocaine HCl (Xylocaine-Mpf 1% Vial) 2 ml 1X PRN PRN ID IV START; Start at 11:45; Stop 06/15/17 at 11:44; Status DC Hydromorphone HCl (Dilaudid) 0.5 mg PRN Q10MIN PRN IV SEV PAIN, Second choice; Start 06/14/17 at 11:45; Stop 06/15/17 at 11:44; Status DC Prochlorperazine Edisylate (Compazine) 5 mg PACU PRN PRN IV NAUSEA, MRX1; Start 06/14/17 at 11:45; Stop 06/15/17 at 11:44; Status DC Propofol 20 ml @ As Directed STK-MED ONCE IV ; Start 06/14/17 at 13:32; Stop at 13:33; Status DC Ondansetron HCl (Zofran) 4 mg PRN Q6HRS PRN IV NAUSEA/VOMITING; Start 06/15/17 at 07:00; Stop 06/16/17 at 06:59; Status DC Fentanyl Citrate (Fentanyl 2ml Vial) 25 mcg PRN Q5MIN PRN IV MILD PAIN; Start 06/15/17 at 07:00; Stop 06/16/17 at 06:59; Status DC Fentanyl Citrate (Fentanyl 2ml Vial) 50 mcg PRN Q5MIN PRN IV MODERATE PAIN; Start 06/15/17 at 07:00; Stop 06/16/17 at 06:59; Status DC Morphine Sulfate 1 mg PRN Q10MIN PRN IV SEVERE PAIN; Start 06/15/17 at 07:00; Stop 06/16/17 at 06:59; Status DC Ringer's Solution 1,000 ml @ 30 mls/hr Q24H IV ; Start 06/15/17 at 07:00; Stop 06/15/17 at 18:59; Status DC Lidocaine HCl (Xylocaine-Mpf 1% Vial) 2 ml PRN 1X PRN ID IV START; Start at 07:00; Stop 06/16/17 at 06:59; Status DC Hydromorphone HCl (Dilaudid) 0.5 mg PRN Q10MIN PRN IV SEV PAIN, Second choice; Start 06/15/17 at 07:00; Stop 06/16/17 at 06:59; Status DC Prochlorperazine Edisylate (Compazine) 5 mg PACU PRN PRN IV NAUSEA, MRX1; Start 06/15/17 at 07:00; Stop 06/16/17 at 06:59; Status DC Potassium Chloride 70 meq/ Sodium Bicarbonate 12.5 meq/Lidocaine HCl 24 ml/ Parenteral Electrolytes 571.5 ml @ 571.5 mls/ hr 1X PERIOP ONCE IRR ; Start at 06:00; Stop 06/15/17 at 06:59; Status DC Potassium Chloride 15 meq/ Sodium Bicarbonate 12.5 meq/Parenteral Electrolytes 520 ml @ 520 mls/hr 1X PERIOP ONCE IRR ; Start 06/15/17 at 06:00; Stop at 06:59; Status DC Heparin Sodium (Porcine) 19247 unit/Ringer's Solution 1,020 ml @ 1,020 mls/hr 1X PERIOP ONCE IRR ; Start 06/15/17 at 06:00; Stop 06/15/17 at 06:59; Status DC Etomidate (Amidate) 20 mg STK-MED ONCE IV ; Start 06/15/17 at 06:14; Stop at 06:15; Status DC Lidocaine HCl (Lidocaine Pf 2% Vial) 5 ml STK-MED ONCE .ROUTE ; Start 06/15/17 at 06:14; Stop 06/15/17 at 06:15; Status DC Ephedrine Sulfate 50 mg STK-MED ONCE IV ; Start 06/15/17 at 06:14; Stop at 06:15; Status DC Phenylephrine HCl (Arthur-Synephrine Inj) 10 mg STK-MED ONCE .ROUTE ; Start at 06:15; Stop 06/15/17 at 06:16; Status DC Rocuronium [place] (Zemuron) 100 mg STK-MED ONCE .ROUTE ; Start 06/15/17 at 06: 15; Stop 06/15/17 at 06:16; Status DC Heparin Sodium (Porcine) 30,000 unit STK-MED ONCE .ROUTE ; Start 06/15/17 at 06: 15; Stop 06/15/17 at 06:16; Status DC Aminocaproic Acid (Amicar) 5,000 mg STK-MED ONCE IV ; Start 06/15/17 at 06:15; Stop 06/15/17 at 06:16; Status DC Nitroglycerin/ Dextrose 250 ml @ As Directed STK-MED ONCE IV ; Start 06/15/17 at 06:15; Stop 06/15/17 at 06:16; Status DC Sufentanil Citrate (Sufenta) 100 mcg STK-MED ONCE .ROUTE ; Start 06/15/17 at 06: 17; Stop 06/15/17 at 06:18; Status DC Midazolam HCl (Versed) 2 mg STK-MED ONCE .ROUTE ; Start 06/15/17 at 06:20; Stop 06/15/17 at 06:21; Status DC Cefazolin Sodium/ Dextrose 50 ml @ 100 mls/hr 1X PREOP ONCE IV ; Start at 07:45; Stop 06/15/17 at 08:14; Status DC Cefazolin Sodium 1 gm/Sodium Chloride 500 ml @ 500 mls/hr 1X PERIOP ONCE IRR Last administered on 06/18/17t 08:59; Start 06/18/17 at 06:00; Stop 06/18/17 at 06:59; Status DC Potassium Chloride 70 meq/ Sodium Bicarbonate 12.5 meq/Lidocaine HCl 24 ml/ Parenteral Electrolytes 571.5 ml @ 571.5 mls/ hr 1X PERIOP ONCE IRR Last administered on 06/18/17 10:45; Start 06/18/17 at 06:00; Stop 06/18/17 at 06:59 ; Status DC Potassium Chloride 15 meq/ Sodium Bicarbonate 12.5 meq/Parenteral Electrolytes 520 ml @ 520 mls/hr 1X PERIOP ONCE IRR Last administered on 06/18/17 10:45; Start 06/18/17 at 06:00; Stop 06/18/17 at 06:59; Status DC Heparin Sodium (Porcine) 89417 unit/Ringer's Solution 1,020 ml @ 1,020 mls/hr 1X PERIOP ONCE IRR Last administered on 06/18/17 08:59; Start 06/18/17 at 06: 00; Stop 06/18/17 at 06:59; Status DC Ondansetron HCl (Zofran) 4 mg PRN Q6HRS PRN IV NAUSEA/VOMITING; Start 06/18/17 at 07:00; Stop 06/19/17 at 06:59 Fentanyl Citrate (Fentanyl 2ml Vial) 25 mcg PRN Q5MIN PRN IV MILD PAIN; Start 06/18/17 at 07:00; Stop 06/19/17 at 06:59 Fentanyl Citrate (Fentanyl 2ml Vial) 50 mcg PRN Q5MIN PRN IV MODERATE PAIN; Start 06/18/17 at 07:00; Stop 06/19/17 at 06:59 Morphine Sulfate 1 mg PRN Q10MIN PRN IV SEVERE PAIN; Start 06/18/17 at 07:00; Stop 06/19/17 at 06:59 Ringer's Solution 1,000 ml @ 30 mls/hr Q24H IV ; Start 06/18/17 at 07:00; Stop 06/18/17 at 18:59 Lidocaine HCl (Xylocaine-Mpf 1% Vial) 2 ml PRN 1X PRN ID IV START; Start at 07:00; Stop 06/19/17 at 06:59 Hydromorphone HCl (Dilaudid) 0.5 mg PRN Q10MIN PRN IV SEV PAIN, Second choice; Start 06/18/17 at 07:00; Stop 06/19/17 at 06:59 Prochlorperazine Edisylate (Compazine) 5 mg PACU PRN PRN IV NAUSEA, MRX1; Start 06/18/17 at 07:00; Stop 06/19/17 at 06:59 Cefazolin Sodium/ Dextrose 50 ml @ As Directed STK-MED ONCE IV ; Start 06/18/17 at 06:27; Stop 06/18/17 at 06:28; Status DC Vancomycin HCl (Vanco) 10 gm STK-MED ONCE .ROUTE Last administered on 08:59; Start 06/18/17 at 06:24; Stop 06/18/17 at 07:24; Status DC Cellulose 1 each STK-MED ONCE .ROUTE Last administered on 06/18/17 08:59; Start 06/18/17 at 06:24; Stop 06/18/17 at 07:24; Status DC Papaverine HCl 60 mg STK-MED ONCE .ROUTE Last administered on 06/18/17 08:59; Start 06/18/17 at 06:24; Stop 06/18/17 at 07:24; Status DC Aspirin (Aspirin) 300 mg STK-MED ONCE .ROUTE Last administered on 06/18/17 09: 44; Start 06/18/17 at 06:24; Stop 06/18/17 at 07:24; Status DC Sodium Chloride (Sodium Chloride) 50 ml STK-MED ONCE IJ Last administered on 08:59; Start 06/18/17 at 06:24; Stop 06/18/17 at 07:24; Status DC Active Scripts Active Reported [none] Vitals/I & O Vital Sign - Last 24 Hours 06/17/17 06/17/17 06/17/17 06/17/17 15:00 19:25 20:00 22:09 Temp 98.0 97.8 98.0 97.8 Pulse 60 79 79 Resp 16 17 B/P (MAP) 120/59 (79) 135/63 (87) 135/63 Pulse Ox 99 98 O2 Delivery Room Air Room Air Room Air 06/17/17 06/18/17 23:08 03:30 Temp 98.1 98.0 98.1 98.0 Pulse 53 54 Resp 16 18 B/P (MAP) 133/75 (94) 150/85 (106) Pulse Ox 98 100 O2 Delivery Room Air Room Air ONIEL COUGHLIN MD Jun 18, 2017 11:19
[2017-06-18] MEDS ORDERED: PROTAMINE 250 MG/25 ML VIAL IV ONE (11:58)
[2017-06-18] MEDS ORDERED: PROTAMINE 50 MG/5 ML VIAL. IV ONE (11:58)
[2017-06-18] MEDS ORDERED: MAGNESIUM SULFATE 5 GM/10 ML VIAL. ONE (12:19)
[2017-06-18] MEDS ORDERED: ALBUMIN HUMAN 25% 200 ML IV ONE (12:19)
[2017-06-18] MEDS ORDERED: MANNITOL 25% 12.5 G/50 ML VIAL FOR OR. ONE (12:19)
[2017-06-18] MEDS ORDERED: CALCIUM CHLORIDE 1,000 MG/10 ML DISP.SYRIN IV ONE (12:19)
[2017-06-18] MEDS ORDERED: SODIUM BICARB ADULT 8.4% 50 MEQ/50 ML DISP.SYRIN. ONE (12:20)
[2017-06-18] MEDS ORDERED: fentaNYL PF VIAL 100 MCG/2 ML VIAL ONE (13:01)
[2017-06-18 13:20] LABS: HEMATOCRIT 33.6 % (39.0-53.0); HEMOGLOBIN 11.3 g/dL (13.0-17.5); WHITE BLOOD COUNT 11.7 x10^3/uL (4.0-11.0)
[2017-06-18 13:28] LABS: ART BE ISTAT -2 mmol/L (0-3); ART GLUC ISTAT 121 mg/dL (70-99); ART HCO3 ISTAT 24 mmol/L (21-28); ART HCT ISTAT 28 % (37-52); ART HGB ISTAT 9.5 g/dL (14-18); ART ION CA ISTAT 1.58 mmol/L (1.13-1.32); ART K ISTAT 3.8 mmol/L (3.5-5.0); ART NA ISTAT 138 mmol/L (135-145); ART PCO2 ISTAT 39 mmHg (35-45); ART PH ISTAT 7.38 (7.35-7.45); ART PO2 ISTAT 413 mmHg (75-100); ART SAT O2 SAT 100 % (95-99); ART TCO2 ISTAT 25 mmol/L (21-32); TOSPEC ART
[2017-06-18 13:28] LABS: ART BE ISTAT -2 mmol/L (0-3); ART GLUC ISTAT 122 mg/dL (70-99); ART HCO3 ISTAT 23 mmol/L (21-28); ART HCT ISTAT 33 % (37-52); ART HGB ISTAT 11.2 g/dL (14-18); ART ION CA ISTAT 1.42 mmol/L (1.13-1.32); ART K ISTAT 3.4 mmol/L (3.5-5.0); ART NA ISTAT 140 mmol/L (135-145); ART PCO2 ISTAT 40 mmHg (35-45); ART PH ISTAT 7.37 (7.35-7.45); ART PO2 ISTAT 420 mmHg (75-100); ART SAT O2 SAT 100 % (95-99); ART TCO2 ISTAT 24 mmol/L (21-32); TOSPEC ART
[2017-06-18 13:28] LABS: ART BE ISTAT -3 mmol/L (0-3); ART GLUC ISTAT 113 mg/dL (70-99); ART HCO3 ISTAT 22 mmol/L (21-28); ART HCT ISTAT 31 % (37-52); ART HGB ISTAT 10.5 g/dL (14-18); ART ION CA ISTAT 1.07 mmol/L (1.13-1.32); ART K ISTAT 4.7 mmol/L (3.5-5.0); ART NA ISTAT 137 mmol/L (135-145); ART PCO2 ISTAT 35 mmHg (35-45); ART PO2 ISTAT 267 mmHg (75-100); ART SAT O2 SAT 100 % (95-99); ART TCO2 ISTAT 23 mmol/L (21-32); TOSPEC ART
[2017-06-18 13:28] LABS: ART BE ISTAT -2 mmol/L (0-3); ART GLUC ISTAT 113 mg/dL (70-99); ART HCO3 ISTAT 23 mmol/L (21-28); ART HCT ISTAT 37 % (37-52); ART HGB ISTAT 12.6 g/dL (14-18); ART ION CA ISTAT 1.22 mmol/L (1.13-1.32); ART K ISTAT 4.1 mmol/L (3.5-5.0); ART NA ISTAT 139 mmol/L (135-145); ART PCO2 ISTAT 39 mmHg (35-45); ART PH ISTAT 7.38 (7.35-7.45); ART PO2 ISTAT 209 mmHg (75-100); ART SAT O2 SAT 100 % (95-99); ART TCO2 ISTAT 24 mmol/L (21-32); TOSPEC ART
[2017-06-18 13:28] LABS: ART BE ISTAT 1 mmol/L (0-3); ART GLUC ISTAT 127 mg/dL (70-99); ART HCO3 ISTAT 26 mmol/L (21-28); ART HCT ISTAT 28 % (37-52); ART HGB ISTAT 9.5 g/dL (14-18); ART ION CA ISTAT 1.59 mmol/L (1.13-1.32); ART K ISTAT 4.2 mmol/L (3.5-5.0); ART NA ISTAT 137 mmol/L (135-145); ART PCO2 ISTAT 42 mmHg (35-45); ART PH ISTAT 7.39 (7.35-7.45); ART PO2 ISTAT 299 mmHg (75-100); ART SAT O2 SAT 100 % (95-99); ART TCO2 ISTAT 27 mmol/L (21-32); TOSPEC ART
[2017-06-18 13:28] LABS: FIO2 ISTAT 70; TOSPEC VEN; VEN BASE EXCESS ISTAT -3 mmol/L (0-3); VEN GLUC ISTAT 114 mg/dL (70-99); VEN HCO3 ISTAT 22 mmol/L (24-28); VEN HCT ISTAT 32 % (37-52); VEN HGB ISTAT 10.9 g/dL (14-18); VEN ION CA ISTAT 1.09 mmol/L (1.13-1.32); VEN K ISTAT 4.7 mmol/L (3.5-5.0); VEN NA ISTAT 137 mmol/L (135-145); VEN O2 ISTAT 44 mmHg (20-40); VEN PCO2 ISTAT 36 mmHg (41-51); VEN SO2 ISTAT 81 %; VEN TCO2 ISTAT 23 mmol/L (21-32)
[2017-06-18 13:28] LABS: ART BE ISTAT -2 mmol/L (0-3); ART GLUC ISTAT 108 mg/dL (70-99); ART HCO3 ISTAT 23 mmol/L (21-28); ART HCT ISTAT 33 % (37-52); ART HGB ISTAT 11.2 g/dL (14-18); ART ION CA ISTAT 1.07 mmol/L (1.13-1.32); ART K ISTAT 5.5 mmol/L (3.5-5.0); ART NA ISTAT 138 mmol/L (135-145); ART PCO2 ISTAT 37 mmHg (35-45); ART PH ISTAT 7.41 (7.35-7.45); ART PO2 ISTAT 368 mmHg (75-100); ART SAT O2 SAT 100 % (95-99); ART TCO2 ISTAT 24 mmol/L (21-32); TOSPEC ART
[2017-06-18 13:29] LABS: INR 1.6 (0.8-1.1); PROTHROMBIN TIME PATIENT 17.8 SEC (11.7-14.0)
[2017-06-18] MEDS ORDERED: ALBUTEROL SULFATE 2.5 MG/3 ML NEBU. NEB PRN (13:30)
[2017-06-18] MEDS ORDERED: KCL PER PROTOCOL MC PRN (13:30)
[2017-06-18] MEDS ORDERED: ACETAMINOPHEN 325 MG TABLET. PO PRN (13:30)
[2017-06-18] MEDS ORDERED: BISACODYL 10 MG SUPP.RECT. PR PRN (13:30)
[2017-06-18] MEDS ORDERED: MAGNESIUM SULFATE 1GM 100 ML IV PRN (13:30)
[2017-06-18] MEDS ORDERED: MEPERIDINE PF 25 MG/ML VIAL. IV PRN (13:30)
[2017-06-18] MEDS ORDERED: AMIODARONE 900 MG in IV DEXTROSE 5% 500 ML IV SCH (13:30)
[2017-06-18] MEDS ORDERED: DEXTROSE 50% 25 GM / 50ML DISP.SYRIN. IV PRN (13:30)
[2017-06-18] MEDS ORDERED: 0.9 % SODIUM CHLORIDE 10 ML DISP.SYRIN. IV PRN (13:30)
[2017-06-18] MEDS ORDERED: ELECTROLYTE (ICU) PROTOCOL. MC PRN (13:30)
[2017-06-18] MEDS ORDERED: ASPIRIN 300 MG SUPP.RECT PR PRN (13:30)
[2017-06-18] MEDS ORDERED: INSULIN REGULAR VIAL 150 UNIT in 0.9 % SODIUM CHLORIDE 150ML 150 ML IV PRN (13:30)
[2017-06-18] MEDS ORDERED: AMIODARONE 150 MG in IV DEXTROSE 5% 100 ML IV SCH (13:30)
--- NOTE | 2017-06-18 13:38 | PDOC ---
BRIEF OPERATIVE NOTE Date: Jun 18, 2017 Pre-Op Diagnosis Coronary artery disease Hypertension S/p PCI to OM1 Post-Op Diagnosis Coronary artery disease Hypertension S/p PCI to OM1 Procedure Performed CABG x 2 (DOSS to LAD, SVG to OM1) Left endoscopic greater saphenous vein harvest Surgeon Cory Callaway MD Dragline Mechanic Rylie Melara, VIRGILIO Jo Anesthesiologist Dr Shabazz Anesthesia Type: General Blood Loss Cellsaver IV Fluid Crystalloid: 2500 mls Cellsaver: 500 mls Urine Output 800 mls Specimens Obtained None Findings 2mm LAD target 1.5mm very calcified OM1 target Boderline LV function EF 40% No LV aneurysm Complications None OPerative Note Additional info: CPB time: 82 min x clamp time: 50 min CORY CALLAWAY MD Jun 18, 2017 13:38
--- NOTE | 2017-06-18 13:41 | RAD ---
EXAM: Chest one view. HISTORY: Coronary artery bypass grafting. COMPARISON: 06/08/2017. FINDINGS: A frontal view of the chest is obtained. An endotracheal tube has its tip 4 cm above the adán. A right internal jugular [place]-Kulwinder catheter has its tip in the right interlobar pulmonary artery. 2 left chest tubes and mediastinal drains are in place. A nasogastric tube has its tip just below the gastroesophageal junction. There are changes of coronary artery bypass grafting. There is focal atelectasis in the left upper lobe. There is no pneumothorax or pleural effusion. The heart is not enlarged. There are atherosclerotic calcifications of the aorta. IMPRESSION: 1. The nasogastric tube has its tip just below the gastroesophageal junction. Recommend advancement. 2. Left upper lobe atelectasis.
--- NOTE | 2017-06-18 13:45 | PDOC4 ---
Operative Note Operative Note Date Jun 18, 2017 Preoperative diagnosis Coronary artery disease Hypertension S/p PCI to OM1 Postoperative diagnosis Coronary artery disease Hypertension S/p PCI to OM1 Procedure CABG x 2 (DOSS to LAD, SVG to OM1) Left endoscopic greater saphenous vein harvest Surgeon René Callaway MD Wood Drill Operator Rylie Melara, VIRGILIO Ceballos WOUND CARE PHYSICIAN Anesthesiologist Dr Shabazz Anesthesia General Blood loss Cellsaver IV fluids Crystalloid: 2500 mls Cellsaver: 500 mls Urine Output 800 mls Specimens obtained None Findings 2mm LAD target 1.5mm very calcified OM1 target Boderline LV function EF 40% No LV aneurysm Complications None Additional info: CPB time: 82 min x clamp time: 50 min Indication The patient is a 67-year-old male with a history of ischemic heart disease, status post PCI to OM1 in 2013, who presented with increasing shortness of breath. The patient was not be taking any medications since his stent placement. He denies chest pain, palpitations, orthopnea, ankle swelling. He had nonspecific EKG changes and troponin was negative. He went on to have a coronary angiogram which demonstrated a proximal tight LAD stenosis, in-stent stenosis of the OM1, with a very small vessel distal to the stent, and a puny nondominant RCA system. The LV gram showed a possible outpouching of the LV cavity although it does appear that there is normal muscle around this outpouching. The outpouching was present on his last LV gram in 2012. No definitive LV aneurysm was identified on echo. A CABG was indicated. The risks, benefits and limitations of the procedure were explained to the patient who agreed to proceed. Informed consent was obtained. Operation After appropriate identification, the patient was brought to the operating room and placed supine on the operating table. Anesthesia was induced and the airway was secured with an endotracheal tube. A right IJ Cordis and [place]-Kulwinder catheter were placed. A left radial arterial line was also inserted. Antibiotics were delivered and the patient was preped in the usual standard surgical sterile fashion. A timeout was then performed. A median sternotomy was performed and the internal mammary artery was harvested, which was of good size with good flow. Simultaneously the left greater saphenous vein was harvested endoscopically, which was of moderate quality and caliber. The pericardium was incised. The patient was heparinized. Cardiopulmonary bypass was established through the ascending aorta and the right atrium. The patient was cooled to 34. Myocardial protection was achieved with antegrade blood cardioplegia. The cross-clamp was applied and diastolic arrest was achieved. Intermittent dosages of cardioplegia were given. Grafts: Saphenous vein graft to obtuse marginal 1 coronary artery, end to side anastomosis with 7-0 Prolene. 1,5 mm very calcified vessel. Left internal mammary artery to distal left anterior descending, end to side anastomosis with 7-0 Prolene. 2 mm vessel The cross-clamp was removed. The heart was allowed to rewarm and reperfuse. A sidebitting clamp was then applied. One proximal anastomosis was performed using a 6-0 Prolene running suture. The graft was de-aired. The patient resumed normal sinus rhythm and was from cardiopulmonary bypass without pharmacologic support. Heparin was reversed with protamine. Atrial and ventricular pacing wires were placed. An angled 32 [place] chest tube was placed in the left pleural space, a 32Fr angled in the posterior pericardium and a 32 straight in the anterior pericardium. Hemostasis was achieved and confirmed. The sternotomy was closed with seven #7 steel wires. The incision was closed with a layer of 0 Vicryl followed by 2-0 Vicryl and then 4-0 Monocryl for the epidermis. Sterile dressings were applied. The total cardiopulmonary bypass time was 82 minutes and the cross-clamp time was 50 minutes. The instrument, sponge and needle counts were correct. The patient was then transferred to the ICU in critical. RENÉ CALLAWAY MD Jun 18, 2017 13:45
[2017-06-18] MEDS ORDERED: GLYCOPYRROLATE 1 MG/5 ML VIAL. ONE (13:58)
[2017-06-18] MEDS ORDERED: NEOSTIGMINE 10 MG/10 ML VIAL. ONE (13:58)
[2017-06-18] MEDS ORDERED: CLEVIDIPINE BUTYRATE 100 ML IV PRN (14:15)
--- NOTE | 2017-06-18 14:15 | EKG ---
[facility] [address] [place] [address] Test Date: 2017-06-18 Test Time: 14:12:19 Pat Name: MAXIMO GILES Department: Room: 110 1 Gender: M Beveler: AT : 1950 Requested By: CATHERINE SINGLETARY Order Number: [id number] Reading MD: Louie Parker Measurements Intervals [place] Rate: 82 P: 58 DE: 152 QRS: 53 QRSD: 92 T: 97 QT: 384 QTc: 452 Interpretive Statements SINUS RHYTHM LEFT ATRIAL ABNORMALITY INCOMPLETE RIGHT BUNDLE BRANCH BLOCK T ABNORMALITY IN ANTEROLATERAL LEADS ABNORMAL ECG RI6.01 Compared to ECG 10/19/2013 02:52:42 Incomplete right bundle-branch block now present T-wave abnormality still present Electronically Signed On 07-07-2017 10:35:05 CDT by Louie Parker
[2017-06-18] MEDS: MORPHINE SULFATE 4 MG/ML DISP.SYRIN. IV PRN ×3 (14:27→16:44)
[2017-06-18] MEDS ORDERED: PROPOFOL 100 ML IV PRN (14:30)
[2017-06-18 14:50] LABS: BASE EXCESS COOX -4 mmol/L (-3-3); CARBON MONOXIDE 0.3 % (0.0-1.9); HCO3 COOX 20 mmol/L (21-28); METHEMOGLOBIN 0.4 % (0.0-1.9); OXYHEMOGLOBIN 98.8 %; PCO2 COOX 33 mmHg (35-46); PO2 COOX 394 mmHg (65-108); SAT O2 COOX 100 % (92-99); TOTAL HEMOGLOBIN 13.4 g/dL
[2017-06-18 14:51] LABS: FIO2 COOX 100
[2017-06-18 14:51] LABS: HEMATOCRIT 37.3 % (39.0-53.0); HEMOGLOBIN 12.7 g/dL (13.0-17.5); RED BLOOD COUNT 3.83 x10^6/uL (4.30-5.70); RED CELL DISTRIBUTION WIDTH 12.6 % (11.5-14.5); WHITE BLOOD COUNT 9.6 x10^3/uL (4.0-11.0)
[2017-06-18 15:02] LABS: INR 1.4 (0.8-1.1); PROTHROMBIN TIME PATIENT 16.5 SEC (11.7-14.0)
[2017-06-18 15:04] LABS: CALCIUM 9.3 mg/dL (8.5-10.1); CREATININE 0.9 mg/dL (0.7-1.3); GFR 102.5; POTASSIUM 3.8 mmol/L (3.5-5.1)
[2017-06-18 15:05] LABS: MAGNESIUM 2.2 mg/dL (1.8-2.4)
[2017-06-18] MEDS: ALBUMIN HUMAN 5% 250 ML IV PRN ×2 (15:27→18:07)
[2017-06-18] MEDS: POTASSIUM CHLORIDE 20MEQ 50 ML IV SCH ×2 (16:30→17:42)
--- NOTE | 2017-06-18 17:04 | PDOC ---
PROGRESS NOTES Subjective Subjective Intubated in the ICU. He tolerated this surgery well. Objective Objective Vital Signs Date Time Temp Pulse Resp B/P (MAP) Pulse Ox O2 Delivery O2 Flow Rate FiO2 06/18/17 16:44 32 100 Ventilator 06/18/17 14:47 70 128/58 06/18/17 14:20 97.7 97.7 06/14/17 13:29 2 Physical Exam Physical Exam Lungs moving air well. Heart regular rate and rhythm loud rub. Extremities no edema Assessment Assessment Patient tolerated surgery well. I agree with present plan. Problems Medical Problems: (1) Chest pain Status: Acute (2) Shortness of breath Status: Acute Comment Review of Relevant I have reviewed the following items chetan (where applicable) has been applied. Labs Laboratory Tests Test 06/17/17 20:10 06/18/17 08:41 06/18/17 10:50 06/18/17 11:26 Nasal Screen MRSA (PCR) Negative (Negative) Bedside Hemoglobin (Calculated) 12.6 g/dL (14-18) 11.2 g/dL (14-18) 10.5 g/dL (14-18) Bedside Hematocrit 37 % (37-52) 33 % (37-52) 31 % (37-52) Bedside Arterial pH 7.38 (7.35-7.45) 7.41 (7.35-7.45) 7.40 (7.35-7.45) Bedside Arterial pCO2 39 mmHg (35-45) 37 mmHg (35-45) 35 mmHg (35-45) Bedside Arterial pO2 209 mmHg (75-100) 368 mmHg (75-100) 267 mmHg (75-100) Bedside Arterial HCO3 23 mmol/L (21-28) 23 mmol/L (21-28) 22 mmol/L (21-28) Bedside Arterial Total CO2 24 mmol/L (21-32) 24 mmol/L (21-32) 23 mmol/L (21-32) Arterial Bld O2 Saturation (Measur) 100 % (95-99) 100 % (95-99) 100 % (95-99) Bedside Arterial Blood Base Excess -2 mmol/L (0-3) -2 mmol/L (0-3) -3 mmol/L (0-3) Bedside FiO2 100.0 70.0 65.0 Bedside Sodium 139 mmol/L (135-145) 138 mmol/L (135-145) 137 mmol/L (135-145) Bedside Potassium 4.1 mmol/L (3.5-5.0) 5.5 mmol/L (3.5-5.0) 4.7 mmol/L (3.5-5.0) Glucose Level 113 mg/dL (70-99) 108 mg/dL (70-99) 113 mg/dL (70-99) Bedside Ionized Calcium (Steff) 1.22 mmol/L (1.13-1.32) 1.07 mmol/L (1.13-1.32) 1.07 mmol/L (1.13-1.32) Test 06/18/17 11:31 06/18/17 11:57 06/18/17 12:20 06/18/17 13:06 Bedside Hematocrit 32 % (37-52) 28 % (37-52) 28 % (37-52) 33 % (37-52) Bedside Venous pH 7.40 (7.32-7.42) Bedside Venous pCO2 36 mmHg (41-51) Bedside Venous pO2 44 mmHg (20-40) Bedside Venous HCO3 22 mmol/L (24-28) Bedside Venous Blood Total CO2 23 mmol/L (21-32) Bedside Venous Blood O2 Saturation 81 % Bedside Venous Blood Base Excess -3 mmol/L (0-3) POC Venous Hemoglobin (Calc) 10.9 g/dL (14-18) Bedside FiO2 70 75.0 100.0 100.0 Bedside Sodium 137 mmol/L (135-145) 137 mmol/L (135-145) 138 mmol/L (135-145) 140 mmol/L (135-145) Bedside Potassium 4.7 mmol/L (3.5-5.0) 4.2 mmol/L (3.5-5.0) 3.8 mmol/L (3.5-5.0) 3.4 mmol/L (3.5-5.0) Glucose Level 114 mg/dL (70-99) 127 mg/dL (70-99) 121 mg/dL (70-99) 122 mg/dL (70-99) Bedside Ionized Calcium (Steff) 1.09 mmol/L (1.13-1.32) 1.59 mmol/L (1.13-1.32) 1.58 mmol/L (1.13-1.32) 1.42 mmol/L (1.13-1.32) Bedside Hemoglobin (Calculated) 9.5 g/dL (14-18) 9.5 g/dL (14-18) 11.2 g/dL (14-18) Bedside Arterial pH 7.39 (7.35-7.45) 7.38 (7.35-7.45) 7.37 (7.35-7.45) Bedside Arterial pCO2 42 mmHg (35-45) 39 mmHg (35-45) 40 mmHg (35-45) Bedside Arterial pO2 299 mmHg (75-100) 413 mmHg (75-100) 420 mmHg (75-100) Bedside Arterial HCO3 26 mmol/L (21-28) 24 mmol/L (21-28) 23 mmol/L (21-28) Bedside Arterial Total CO2 27 mmol/L (21-32) 25 mmol/L (21-32) 24 mmol/L (21-32) Arterial Bld O2 Saturation (Measur) 100 % (95-99) 100 % (95-99) 100 % (95-99) Bedside Arterial Blood Base Excess 1 mmol/L (0-3) -2 mmol/L (0-3) -2 mmol/L (0-3) Test 06/18/17 13:15 06/18/17 13:53 06/18/17 14:35 06/18/17 14:45 White Blood Count 11.7 x10^3/uL (4.0-11.0) 9.6 x10^3/uL (4.0-11.0) Hemoglobin 11.3 g/dL (13.0-17.5) 12.7 g/dL (13.0-17.5) Hematocrit 33.6 % (39.0-53.0) 37.3 % (39.0-53.0) Platelet Count 137 x10^3/uL (140-400) 160 x10^3/uL (140-400) Prothrombin Time 17.8 SEC (11.7-14.0) 16.5 SEC (11.7-14.0) Prothromb Time International Ratio 1.6 (0.8-1.1) 1.4 (0.8-1.1) Activated Partial Thromboplast Time 36 SEC (24-38) 35 SEC (24-38) Fibrinogen 201 mg/dL (200-440) Glucose (Fingerstick) 119 mg/dL (70-99) O2 Saturation 100 % (92-99) Arterial Blood pH 7.40 (7.35-7.45) Arterial Blood pCO2 at Patient Temp 33 mmHg (35-46) Arterial Blood pO2 at Patient Temp 394 mmHg (65-108) Arterial Blood HCO3 20 mmol/L (21-28) Arterial Blood Base Excess -4 mmol/L (-3-3) Oxyhemoglobin 98.8 % Methemoglobin 0.4 % (0.0-1.9) Carbon Monoxide, Quantitative 0.3 % (0.0-1.9) FiO2 100 Red Blood Count 3.83 x10^6/uL (4.30-5.70) Mean Corpuscular Volume 97 fL (79-100) Mean Corpuscular Hemoglobin 33 pg (25-35) Mean Corpuscular Hemoglobin Concent 34 g/dL (31-37) Red Cell Distribution Width 12.6 % (11.5-14.5) Sodium Level 140 mmol/L (136-145) Potassium Level 3.8 mmol/L (3.5-5.1) Chloride Level 107 mmol/L (98-107) Carbon Dioxide Level 24 mmol/L (21-32) Anion Gap 9 (6-14) Blood Urea Nitrogen 13 mg/dL (8-26) Creatinine 0.9 mg/dL (0.7-1.3) Estimated GFR (Cockcroft-Gault) 102.5 Glucose Level 130 mg/dL (70-99) Calcium Level 9.3 mg/dL (8.5-10.1) Magnesium Level 2.2 mg/dL (1.8-2.4) Laboratory Tests Test 06/17/17 20:10 06/18/17 08:41 06/18/17 10:50 06/18/17 11:26 Nasal Screen MRSA (PCR) Negative (Negative) Bedside Hemoglobin (Calculated) 12.6 g/dL (14-18) 11.2 g/dL (14-18) 10.5 g/dL (14-18) Bedside Hematocrit 37 % (37-52) 33 % (37-52) 31 % (37-52) Bedside Arterial pH 7.38 (7.35-7.45) 7.41 (7.35-7.45) 7.40 (7.35-7.45) Bedside Arterial pCO2 39 mmHg (35-45) 37 mmHg (35-45) 35 mmHg (35-45) Bedside Arterial pO2 209 mmHg (75-100) 368 mmHg (75-100) 267 mmHg (75-100) Bedside Arterial HCO3 23 mmol/L (21-28) 23 mmol/L (21-28) 22 mmol/L (21-28) Bedside Arterial Total CO2 24 mmol/L (21-32) 24 mmol/L (21-32) 23 mmol/L (21-32) Arterial Bld O2 Saturation (Measur) 100 % (95-99) 100 % (95-99) 100 % (95-99) Bedside Arterial Blood Base Excess -2 mmol/L (0-3) -2 mmol/L (0-3) -3 mmol/L (0-3) Bedside FiO2 100.0 70.0 65.0 Bedside Sodium 139 mmol/L (135-145) 138 mmol/L (135-145) 137 mmol/L (135-145) Bedside Potassium 4.1 mmol/L (3.5-5.0) 5.5 mmol/L (3.5-5.0) 4.7 mmol/L (3.5-5.0) Glucose Level 113 mg/dL (70-99) 108 mg/dL (70-99) 113 mg/dL (70-99) Bedside Ionized Calcium (Steff) 1.22 mmol/L (1.13-1.32) 1.07 mmol/L (1.13-1.32) 1.07 mmol/L (1.13-1.32) Test 06/18/17 11:31 06/18/17 11:57 06/18/17 12:20 06/18/17 13:06 Bedside Hematocrit 32 % (37-52) 28 % (37-52) 28 % (37-52) 33 % (37-52) Bedside Venous pH 7.40 (7.32-7.42) Bedside Venous pCO2 36 mmHg (41-51) Bedside Venous pO2 44 mmHg (20-40) Bedside Venous HCO3 22 mmol/L (24-28) Bedside Venous Blood Total CO2 23 mmol/L (21-32) Bedside Venous Blood O2 Saturation 81 % Bedside Venous Blood Base Excess -3 mmol/L (0-3) POC Venous Hemoglobin (Calc) 10.9 g/dL (14-18) Bedside FiO2 70 75.0 100.0 100.0 Bedside Sodium 137 mmol/L (135-145) 137 mmol/L (135-145) 138 mmol/L (135-145) 140 mmol/L (135-145) Bedside Potassium 4.7 mmol/L (3.5-5.0) 4.2 mmol/L (3.5-5.0) 3.8 mmol/L (3.5-5.0) 3.4 mmol/L (3.5-5.0) Glucose Level 114 mg/dL (70-99) 127 mg/dL (70-99) 121 mg/dL (70-99) 122 mg/dL (70-99) Bedside Ionized Calcium (Steff) 1.09 mmol/L (1.13-1.32) 1.59 mmol/L (1.13-1.32) 1.58 mmol/L (1.13-1.32) 1.42 mmol/L (1.13-1.32) Bedside Hemoglobin (Calculated) 9.5 g/dL (14-18) 9.5 g/dL (14-18) 11.2 g/dL (14-18) Bedside Arterial pH 7.39 (7.35-7.45) 7.38 (7.35-7.45) 7.37 (7.35-7.45) Bedside Arterial pCO2 42 mmHg (35-45) 39 mmHg (35-45) 40 mmHg (35-45) Bedside Arterial pO2 299 mmHg (75-100) 413 mmHg (75-100) 420 mmHg (75-100) Bedside Arterial HCO3 26 mmol/L (21-28) 24 mmol/L (21-28) 23 mmol/L (21-28) Bedside Arterial Total CO2 27 mmol/L (21-32) 25 mmol/L (21-32) 24 mmol/L (21-32) Arterial Bld O2 Saturation (Measur) 100 % (95-99) 100 % (95-99) 100 % (95-99) Bedside Arterial Blood Base Excess 1 mmol/L (0-3) -2 mmol/L (0-3) -2 mmol/L (0-3) Test 06/18/17 13:15 06/18/17 13:53 06/18/17 14:35 06/18/17 14:45 White Blood Count 11.7 x10^3/uL (4.0-11.0) 9.6 x10^3/uL (4.0-11.0) Hemoglobin 11.3 g/dL (13.0-17.5) 12.7 g/dL (13.0-17.5) Hematocrit 33.6 % (39.0-53.0) 37.3 % (39.0-53.0) Platelet Count 137 x10^3/uL (140-400) 160 x10^3/uL (140-400) Prothrombin Time 17.8 SEC (11.7-14.0) 16.5 SEC (11.7-14.0) Prothromb Time International Ratio 1.6 (0.8-1.1) 1.4 (0.8-1.1) Activated Partial Thromboplast Time 36 SEC (24-38) 35 SEC (24-38) Fibrinogen 201 mg/dL (200-440) Glucose (Fingerstick) 119 mg/dL (70-99) O2 Saturation 100 % (92-99) Arterial Blood pH 7.40 (7.35-7.45) Arterial Blood pCO2 at Patient Temp 33 mmHg (35-46) Arterial Blood pO2 at Patient Temp 394 mmHg (65-108) Arterial Blood HCO3 20 mmol/L (21-28) Arterial Blood Base Excess -4 mmol/L (-3-3) Oxyhemoglobin 98.8 % Methemoglobin 0.4 % (0.0-1.9) Carbon Monoxide, Quantitative 0.3 % (0.0-1.9) FiO2 100 Red Blood Count 3.83 x10^6/uL (4.30-5.70) Mean Corpuscular Volume 97 fL (79-100) Mean Corpuscular Hemoglobin 33 pg (25-35) Mean Corpuscular Hemoglobin Concent 34 g/dL (31-37) Red Cell Distribution Width 12.6 % (11.5-14.5) Sodium Level 140 mmol/L (136-145) Potassium Level 3.8 mmol/L (3.5-5.1) Chloride Level 107 mmol/L (98-107) Carbon Dioxide Level 24 mmol/L (21-32) Anion Gap 9 (6-14) Blood Urea Nitrogen 13 mg/dL (8-26) Creatinine 0.9 mg/dL (0.7-1.3) Estimated GFR (Cockcroft-Gault) 102.5 Glucose Level 130 mg/dL (70-99) Calcium Level 9.3 mg/dL (8.5-10.1) Magnesium Level 2.2 mg/dL (1.8-2.4) Medications Current Medications Ondansetron HCl (Zofran) 4 mg PRN Q8HRS PRN IV NAUSEA/VOMITING; Start 06/08/17 at 16:45; Stop 06/09/17 at 14:42; Status DC Morphine Sulfate 2 mg PRN Q2HR PRN IV PAIN; Start 06/08/17 at 16:45; Stop 06/09 at 14:42; Status DC Acetaminophen (Tylenol) 650 mg PRN Q6HRS PRN PO FEVER; Start 06/08/17 at 17:45 ; Stop 06/18/17 at 14:09; Status DC Ondansetron HCl (Zofran) 4 mg PRN Q6HRS PRN IV NAUSEA/VOMITING; Start 06/08/17 at 17:45; Stop 06/18/17 at 14:11; Status DC Morphine Sulfate 2 mg PRN Q2HR PRN IV PAIN; Start 06/08/17 at 17:45; Stop 06/18 at 14:11; Status DC Tramadol HCl (Ultram) 50 mg PRN Q6HRS PRN PO PAIN MILD TO MOD; Start 06/08/17 at 17:45 Hydralazine HCl (Apresoline) 10 mg PRN Q4HRS PRN IVP ELEVATED BP, SEE COMMENTS ; Start 06/08/17 at 17:45 Docusate Sodium (Colace) 100 mg PRN DAILY PRN PO CONSTIPATION; Start 06/08/17 at 17:45 Albuterol Sulfate (Ventolin Neb Soln) 2.5 mg PRN Q4HRS PRN NEB SHORTNESS OF BREATH; Start 06/08/17 at 17:45; Stop 06/18/17 at 14:10; Status DC Enoxaparin Sodium (Lovenox 40mg Syringe) 40 mg Q24H SQ Last administered on t 19:41; Start 06/08/17 at 18:00; Stop 06/14/17 at 14:20; Status DC Folic Acid (Folic Acid) 1 mg DAILY PO Last administered on 06/17/17 09:46; Start 06/08/17 at 18:00 Thiamine Mononitrate (Vitamin B-1) 100 mg DAILY PO Last administered on 09:46; Start 06/08/17 at 18:00 Lorazepam (Ativan) 2 mg PRN Q4HRS PRN IV ANXIETY / AGITATION Last administered on 06/09/17 00:49; Start 06/08/17 at 17:45 Lisinopril (Prinivil) 40 mg DAILY PO ; Start 06/08/17 at 18:00; Stop 06/08/17 at 18:45; Status DC Lisinopril (Prinivil) 20 mg DAILY PO ; Start 06/09/17 at 09:00; Stop 06/11/17 at 17:13; Status DC Zolpidem Tartrate (Ambien) 5 mg PRN QHS PRN PO INSOMNIA Last administered on 23:33; Start 06/08/17 at 20:45 Vitamin B Complex (Folbic Tablet) 1 tab DAILY PO Last administered on 09:46; Start 06/09/17 at 10:30 Cyanocobalamin (Vitamin B-12) 1,000 mcg 1X ONCE IM Last administered on 13:46; Start 06/09/17 at 10:45; Stop 06/09/17 at 10:46; Status DC Regadenoson (Lexiscan) 0.4 mg 1X ONCE IV ; Start 06/10/17 at 08:45; Stop at 08:46; Status DC Regadenoson (Lexiscan) 0.4 mg STK-MED ONCE IV ; Start 06/10/17 at 09:24; Stop at 09:25; Status DC Regadenoson (Lexiscan) 0.4 mg STK-MED ONCE IV ; Start 06/10/17 at 09:24; Stop at 10:04; Status DC Iohexol (Omnipaque 300 Mg/ml) 100 ml STK-MED ONCE .ROUTE ; Start 06/11/17 at 12: 54; Stop 06/11/17 at 12:55; Status DC Lidocaine HCl 20 ml STK-MED ONCE .ROUTE ; Start 06/11/17 at 12:55; Stop at 12:56; Status DC Heparin Sodium/ Sodium Chloride 500 ml @ As Directed STK-MED ONCE .ROUTE ; Start 06/11/17 at 12:55; Stop 06/11/17 at 12:56; Status DC Midazolam HCl (Versed) 2 mg STK-MED ONCE .ROUTE ; Start 06/11/17 at 13:23; Stop 06/11/17 at 13:24; Status DC Fentanyl Citrate (Fentanyl 2ml Vial) 100 mcg STK-MED ONCE .ROUTE ; Start at 13:23; Stop 06/11/17 at 13:24; Status DC Heparin Sodium/ Sodium Chloride 1,000 unit 1X ONCE IART Last administered on 13:52; Start 06/11/17 at 13:45; Stop 06/11/17 at 13:46; Status DC Midazolam HCl (Versed) 2 mg 1X ONCE IV Last administered on 06/11/17 13:52; Start 06/11/17 at 13:45; Stop 06/11/17 at 13:46; Status DC Fentanyl Citrate (Fentanyl 2ml Vial) 100 mcg 1X ONCE IV Last administered on 13:52; Start 06/11/17 at 13:45; Stop 06/11/17 at 13:46; Status DC Iohexol (Omnipaque 300 Mg/ml) 100 ml 1X ONCE IART Last administered on 13:51; Start 06/11/17 at 13:45; Stop 06/11/17 at 13:46; Status DC Lidocaine HCl 20 ml 1X ONCE IJ Last administered on 06/11/17 13:51; Start at 13:45; Stop 06/11/17 at 13:46; Status DC Metoprolol Tartrate (Lopressor) 25 mg BID PO Last administered on 06/17/17 22: 09; Start 06/11/17 at 21:00; Stop 06/18/17 at 14:10; Status DC Iohexol (Omnipaque 300 Mg/ml) 75 ml 1X ONCE IV Last administered on 06/12/17 08:12; Start 06/12/17 at 08:30; Stop 06/12/17 at 08:31; Status DC Info (Do NOT chart on this entry -- for MONITORING) 1 each PRN DAILY PRN MC SEE COMMENTS; Start 06/12/17 at 08:15; Stop 06/14/17 at 08:14; Status DC Lidocaine HCl (Xylocaine 2% Topical 5gm Tube) 1 grant 1X ONCE TP ; Start at 14:00; Stop 06/12/17 at 14:01; Status DC Lidocaine HCl (Viscous Lidocaine) 15 ml 1X ONCE MM ; Start 06/12/17 at 14:00; Stop 06/12/17 at 14:01; Status Cancel Benzocaine (Hurricaine One) 3 spray 1X ONCE MM ; Start 06/12/17 at 14:00; Stop 06/12/17 at 14:01; Status DC Lidocaine HCl (Viscous Lidocaine) 15 ml 1X PRN PRN MM FOR REBEKAH Last administered on 06/14/17 13:14; Start 06/14/17 at 09:00; Stop 06/14/17 at 18:00 ; Status DC Benzocaine (Hurricaine One) 3 spray 1X ONCE MM Last administered on 06/14/17 13:14; Start 06/14/17 at 07:00; Stop 06/14/17 at 07:01; Status DC Lidocaine HCl (Xylocaine 2% Topical 5gm Tube) 1 grant 1X ONCE TP Last administered on 06/14/17 13:17; Start 06/14/17 at 07:00; Stop 06/14/17 at 07:01 ; Status DC Lidocaine HCl (Xylocaine 2% Topical 30gm Tube) 30 grant STK-MED ONCE TP ; Start at 10:57; Stop 06/14/17 at 10:58; Status DC Ondansetron HCl (Zofran) 4 mg PRN Q6HRS PRN IV NAUSEA/VOMITING; Start 06/14/17 at 11:45; Stop 06/15/17 at 11:44; Status DC Fentanyl Citrate (Fentanyl 2ml Vial) 25 mcg PRN Q5MIN PRN IV MILD PAIN; Start 06/14/17 at 11:45; Stop 06/15/17 at 11:44; Status DC Fentanyl Citrate (Fentanyl 2ml Vial) 50 mcg PRN Q5MIN PRN IV MODERATE PAIN; Start 06/14/17 at 11:45; Stop 06/15/17 at 11:44; Status DC Morphine Sulfate 1 mg PRN Q10MIN PRN IV SEVERE PAIN; Start 06/14/17 at 11:45; Stop 06/15/17 at 11:44; Status DC Ringer's Solution 1,000 ml @ 30 mls/hr Q24H IV Last administered on 06/14/17t 11:31; Start 06/14/17 at 11:31; Stop 06/14/17 at 23:30; Status DC Lidocaine HCl (Xylocaine-Mpf 1% Vial) 2 ml 1X PRN PRN ID IV START; Start at 11:45; Stop 06/15/17 at 11:44; Status DC Hydromorphone HCl (Dilaudid) 0.5 mg PRN Q10MIN PRN IV SEV PAIN, Second choice; Start 06/14/17 at 11:45; Stop 06/15/17 at 11:44; Status DC Prochlorperazine Edisylate (Compazine) 5 mg PACU PRN PRN IV NAUSEA, MRX1; Start 06/14/17 at 11:45; Stop 06/15/17 at 11:44; Status DC Propofol 20 ml @ As Directed STK-MED ONCE IV ; Start 06/14/17 at 13:32; Stop at 13:33; Status DC Ondansetron HCl (Zofran) 4 mg PRN Q6HRS PRN IV NAUSEA/VOMITING; Start 06/15/17 at 07:00; Stop 06/16/17 at 06:59; Status DC Fentanyl Citrate (Fentanyl 2ml Vial) 25 mcg PRN Q5MIN PRN IV MILD PAIN; Start 06/15/17 at 07:00; Stop 06/16/17 at 06:59; Status DC Fentanyl Citrate (Fentanyl 2ml Vial) 50 mcg PRN Q5MIN PRN IV MODERATE PAIN; Start 06/15/17 at 07:00; Stop 06/16/17 at 06:59; Status DC Morphine Sulfate 1 mg PRN Q10MIN PRN IV SEVERE PAIN; Start 06/15/17 at 07:00; Stop 06/16/17 at 06:59; Status DC Ringer's Solution 1,000 ml @ 30 mls/hr Q24H IV ; Start 06/15/17 at 07:00; Stop 06/15/17 at 18:59; Status DC Lidocaine HCl (Xylocaine-Mpf 1% Vial) 2 ml PRN 1X PRN ID IV START; Start at 07:00; Stop 06/16/17 at 06:59; Status DC Hydromorphone HCl (Dilaudid) 0.5 mg PRN Q10MIN PRN IV SEV PAIN, Second choice; Start 06/15/17 at 07:00; Stop 06/16/17 at 06:59; Status DC Prochlorperazine Edisylate (Compazine) 5 mg PACU PRN PRN IV NAUSEA, MRX1; Start 06/15/17 at 07:00; Stop 06/16/17 at 06:59; Status DC Potassium Chloride 70 meq/ Sodium Bicarbonate 12.5 meq/Lidocaine HCl 24 ml/ Parenteral Electrolytes 571.5 ml @ 571.5 mls/ hr 1X PERIOP ONCE IRR ; Start at 06:00; Stop 06/15/17 at 06:59; Status DC Potassium Chloride 15 meq/ Sodium Bicarbonate 12.5 meq/Parenteral Electrolytes 520 ml @ 520 mls/hr 1X PERIOP ONCE IRR ; Start 06/15/17 at 06:00; Stop at 06:59; Status DC Heparin Sodium (Porcine) 67431 unit/Ringer's Solution 1,020 ml @ 1,020 mls/hr 1X PERIOP ONCE IRR ; Start 06/15/17 at 06:00; Stop 06/15/17 at 06:59; Status DC Etomidate (Amidate) 20 mg STK-MED ONCE IV ; Start 06/15/17 at 06:14; Stop at 06:15; Status DC Lidocaine HCl (Lidocaine Pf 2% Vial) 5 ml STK-MED ONCE .ROUTE ; Start 06/15/17 at 06:14; Stop 06/15/17 at 06:15; Status DC Ephedrine Sulfate 50 mg STK-MED ONCE IV ; Start 06/15/17 at 06:14; Stop at 06:15; Status DC Phenylephrine HCl (Arthur-Synephrine Inj) 10 mg STK-MED ONCE .ROUTE ; Start at 06:15; Stop 06/15/17 at 06:16; Status DC Rocuronium Pratts (Zemuron) 100 mg STK-MED ONCE .ROUTE ; Start 06/15/17 at 06: 15; Stop 06/15/17 at 06:16; Status DC Heparin Sodium (Porcine) 30,000 unit STK-MED ONCE .ROUTE ; Start 06/15/17 at 06: 15; Stop 06/15/17 at 06:16; Status DC Aminocaproic Acid (Amicar) 5,000 mg STK-MED ONCE IV ; Start 06/15/17 at 06:15; Stop 06/15/17 at 06:16; Status DC Nitroglycerin/ Dextrose 250 ml @ As Directed STK-MED ONCE IV ; Start 06/15/17 at 06:15; Stop 06/15/17 at 06:16; Status DC Sufentanil Citrate (Sufenta) 100 mcg STK-MED ONCE .ROUTE ; Start 06/15/17 at 06: 17; Stop 06/15/17 at 06:18; Status DC Midazolam HCl (Versed) 2 mg STK-MED ONCE .ROUTE ; Start 06/15/17 at 06:20; Stop 06/15/17 at 06:21; Status DC Cefazolin Sodium/ Dextrose 50 ml @ 100 mls/hr 1X PREOP ONCE IV ; Start at 07:45; Stop 06/15/17 at 08:14; Status DC Cefazolin Sodium 1 gm/Sodium Chloride 500 ml @ 500 mls/hr 1X PERIOP ONCE IRR Last administered on 06/18/17 08:59; Start 06/18/17 at 06:00; Stop 06/18/17 at 06:59; Status DC Potassium Chloride 70 meq/ Sodium Bicarbonate 12.5 meq/Lidocaine HCl 24 ml/ Parenteral Electrolytes 571.5 ml @ 571.5 mls/ hr 1X PERIOP ONCE IRR Last administered on 06/18/17 10:45; Start 06/18/17 at 06:00; Stop 06/18/17 at 06:59 ; Status DC Potassium Chloride 15 meq/ Sodium Bicarbonate 12.5 meq/Parenteral Electrolytes 520 ml @ 520 mls/hr 1X PERIOP ONCE IRR Last administered on 9/29/17at 10:45; Start 06/18/17 at 06:00; Stop 06/18/17 at 06:59; Status DC Heparin Sodium (Porcine) 93553 unit/Ringer's Solution 1,020 ml @ 1,020 mls/hr 1X PERIOP ONCE IRR Last administered on 06/18/17t 08:59; Start 06/18/17 at 06: 00; Stop 06/18/17 at 06:59; Status DC Ondansetron HCl (Zofran) 4 mg PRN Q6HRS PRN IV NAUSEA/VOMITING; Start 06/18/17 at 07:00; Stop 06/18/17 at 14:11; Status DC Fentanyl Citrate (Fentanyl 2ml Vial) 25 mcg PRN Q5MIN PRN IV MILD PAIN; Start 06/18/17 at 07:00; Stop 06/18/17 at 14:12; Status DC Fentanyl Citrate (Fentanyl 2ml Vial) 50 mcg PRN Q5MIN PRN IV MODERATE PAIN; Start 06/18/17 at 07:00; Stop 06/18/17 at 14:12; Status DC Morphine Sulfate 1 mg PRN Q10MIN PRN IV SEVERE PAIN; Start 06/18/17 at 07:00; Stop 06/18/17 at 14:11; Status DC Ringer's Solution 1,000 ml @ 30 mls/hr Q24H IV ; Start 06/18/17 at 07:00; Stop 06/18/17 at 14:12; Status DC Lidocaine HCl (Xylocaine-Mpf 1% Vial) 2 ml PRN 1X PRN ID IV START; Start at 07:00; Stop 06/18/17 at 14:12; Status DC Hydromorphone HCl (Dilaudid) 0.5 mg PRN Q10MIN PRN IV SEV PAIN, Second choice; Start 06/18/17 at 07:00; Stop 06/18/17 at 14:13; Status DC Prochlorperazine Edisylate (Compazine) 5 mg PACU PRN PRN IV NAUSEA, MRX1; Start 06/18/17 at 07:00; Stop 06/18/17 at 14:13; Status DC Cefazolin Sodium/ Dextrose 50 ml @ As Directed STK-MED ONCE IV ; Start 06/18/17 at 06:27; Stop 06/18/17 at 06:28; Status DC Vancomycin HCl (Vanco) 10 gm STK-MED ONCE .ROUTE Last administered on 08:59; Start 06/18/17 at 06:24; Stop 06/18/17 at 07:24; Status DC Cellulose 1 each STK-MED ONCE .ROUTE Last administered on 06/18/17 08:59; Start 06/18/17 at 06:24; Stop 06/18/17 at 07:24; Status DC Papaverine HCl 60 mg STK-MED ONCE .ROUTE Last administered on 06/18/17 08:59; Start 06/18/17 at 06:24; Stop 06/18/17 at 07:24; Status DC Aspirin (Aspirin) 300 mg STK-MED ONCE .ROUTE Last administered on 06/18/17 13: 21; Start 06/18/17 at 06:24; Stop 06/18/17 at 07:24; Status DC Sodium Chloride (Sodium Chloride) 50 ml STK-MED ONCE IJ Last administered on 08:59; Start 06/18/17 at 06:24; Stop 06/18/17 at 07:24; Status DC Cefazolin Sodium/ Dextrose 50 ml @ 100 mls/hr 1X ONCE IV Last administered on 06/18/17 12:33; Start 06/18/17 at 11:30; Stop 06/18/17 at 11:59; Status DC Sodium Chloride (Normal Saline Flush) 3 ml PRN Q12HR PRN IV AFTER MEDS AND BLOOD DRAWS; Start 06/18/17 at 13:30 Ringer's Solution 1,000 ml @ 30 mls/hr Q24H IV Last administered on 06/18/17 14:29; Start 06/18/17 at 13:22 Albumin Human 250 ml @ 60 mls/hr PRN Q4HRS PRN IV SEE I/O RECORD Last administered on 06/18/17 15:27; Start 06/18/17 at 13:30 Insulin Human Regular 150 unit/ Sodium Chloride 151.5 ml @ 0 mls/hr CONT PRN PRN IV SEE I/O RECORD Last administered on 06/18/17 16:34; Start 06/18/17 at 13 :30 Dextrose (Dextrose 50%-Water Syringe) 25 gm PRN Q15MIN PRN IV LOW BLOOD SUGAR; Start 06/18/17 at 13:30 Amiodarone HCl 150 mg/Dextrose 103 ml @ 200 mls/hr STAT IV Last administered on 06/18/17 14:47; Start 06/18/17 at 13:30 Amiodarone HCl 900 mg/Dextrose 518 ml @ 33.33 mls/ hr STAT IV Last administered on 06/18/17 14:47; Start 06/18/17 at 13:30 Amiodarone HCl (Cordarone) 400 mg BID PO ; Start 06/19/17 at 21:00 Info 1 ea CONT PRN PRN MC SEE COMMENTS; Start 06/18/17 at 13:30 Info 1 ea CONT PRN PRN MC SEE COMMENTS; Start 06/18/17 at 13:30 Magnesium Sulfate/ Dextrose 100 ml @ 100 mls/hr PRN DAILY PRN IV FOR MAG < 2.2 ; Start 06/18/17 at 13:30 Famotidine (Pepcid) 20 mg BID IVP ; Start 06/18/17 at 21:00 Ondansetron HCl (Zofran) 4 mg PRN Q4HRS PRN IV NAUSEA/VOMITING; Start 06/18/17 at 13:30 Morphine Sulfate 2 mg PRN Q1HR PRN IV PAIN Last administered on 06/18/17 16:44 ; Start 06/18/17 at 13:30 Acetaminophen (Tylenol) 650 mg PRN Q4HRS PRN PO MILD PAIN / TEMP; Start at 13:30 Meperidine HCl (Demerol) 12.5 mg PRN Q15MIN PRN IV SHIVERING Last administered on 06/18/17 14:28; Start 06/18/17 at 13:30; Stop 06/19/17 at 13:22 Senna/Docusate Sodium (Senna Plus) 1 tab BID PO ; Start 06/18/17 at 21:00 Bisacodyl (Dulcolax Supp) 10 mg PRN DAILY PRN ME NO BOWEL MOVEMENT; Start 06/18 at 13:30 Aspirin (Ecotrin) 325 mg DAILYWBKFT PO ; Start 06/19/17 at 08:00 Aspirin (Aspirin) 300 mg PRN DAILY PRN ME IF UNABLE TO TAKE PO; Start 06/18/17 at 13:30 Albuterol Sulfate (Ventolin Neb Soln) 2.5 mg PRN Q4HRS PRN NEB SHORTNESS OF BREATH; Start 06/18/17 at 13:30 Metoprolol Tartrate (Lopressor) 25 mg BID PO ; Start 06/19/17 at 09:00 Nicardipine HCl 50 mg/Sodium Chloride 270 ml @ 0 mls/hr CONT PRN PRN IV PER PROTOCOL; Start 06/18/17 at 13:30 Oxycodone/ Acetaminophen (Percocet 5/325) 1 tab PRN Q4HRS PRN PO MILD PAIN; Start 06/18/17 at 13:30 Oxycodone/ Acetaminophen (Percocet 5/325) 2 tab PRN Q4HRS PRN PO MODERATE PAIN , SEVERE PAIN; Start 06/18/17 at 13:30 Cefazolin Sodium 1 gm/Sodium Chloride 50 ml @ 100 mls/hr Q8H IV ; Start at 20:00; Stop 06/20/17 at 04:29 Clevidipine 100 ml @ 0 mls/hr CONT PRN IV PER PROTOCOL Last administered on 14:28; Start 06/18/17 at 14:15 Propofol 100 ml @ 0 mls/hr CONT PRN IV SEE I/O RECORD Last administered on 06/18 14:47; Start 06/18/17 at 14:30 Potassium Chloride 50 ml @ 50 mls/hr Q1H IV Last administered on 06/18/17 16: 30; Start 06/18/17 at 16:15; Stop 06/18/17 at 18:14 Active Scripts Active Reported [none] Vitals/I & O Vital Sign - Last 24 Hours 06/17/17 06/17/17 06/17/17 06/17/17 19:25 20:00 22:09 23:08 Temp 97.8 98.1 97.8 98.1 Pulse 79 79 53 Resp 17 16 B/P (MAP) 135/63 (87) 135/63 133/75 (94) Pulse Ox 98 98 O2 Delivery Room Air Room Air Room Air 06/18/17 06/18/17 06/18/17 06/18/17 03:30 13:45 13:51 13:55 Temp 98.0 97.6 97.5 98.0 97.6 97.5 Pulse 54 75 75 Resp 18 14 14 B/P (MAP) 150/85 (106) 143/70 (94) 165/77 (106) Pulse Ox 100 100 100 O2 Delivery Room Air Ventilator Ventilator Ventilator 06/18/17 06/18/17 06/18/17 06/18/17 14:10 14:10 14:20 14:27 Temp 97.6 97.7 97.6 97.7 Pulse 74 70 Resp 14 14 14 B/P (MAP) 131/67 (88) 133/83 (100) 190/81 (117) Pulse Ox 100 100 100 O2 Delivery Ventilator Ventilator Ventilator 06/18/17 06/18/17 06/18/17 06/18/17 14:28 14:28 14:47 15:18 Pulse 70 Resp 14 19 B/P (MAP) 180/79 128/58 Pulse Ox 100 100 O2 Delivery Ventilator Ventilator 06/18/17 06/18/17 16:00 16:44 Resp 32 Pulse Ox 100 100 O2 Delivery Ventilator Ventilator RICH JEREZ MD Jun 18, 2017 17:04
[2017-06-18 19:07] LABS: HEMATOCRIT 34.5 % (39.0-53.0); HEMOGLOBIN 11.8 g/dL (13.0-17.5)
[2017-06-18 19:20] LABS: CALCIUM 9.1 mg/dL (8.5-10.1); CREATININE 1.1 mg/dL (0.7-1.3); GFR 81.3; MAGNESIUM 2.1 mg/dL (1.8-2.4); POTASSIUM 4.7 mmol/L (3.5-5.1)
[2017-06-18 19:35] LABS: FIO2 ABG 40; HCO3 ABG 22 mmol/L (21-28); PCO2 ABG 40 mmHg (35-46); PH ABG 7.35 (7.35-7.45); PO2 ABG 145 mmHg (65-108); SAT O2 ABG 98 % (92-99)
[2017-06-18] MEDS: FAMOTIDINE 20 MG/2 ML VIAL IVP SCH (20:41)
[2017-06-18] MEDS: SENNOSIDES/DOCUSATE 8.6/50MG TABLET. PO SCH (20:47)
[2017-06-19] VITALS (18 sets, daily range): BP systolic 105–138; BP diastolic 60–75
[2017-06-19] MEDS: MORPHINE SULFATE 4 MG/ML DISP.SYRIN. IV PRN (02:09)
[2017-06-19] MEDS: oxyCODONE/APAP 5/325 1 TAB TABLET PO PRN ×3 (02:47→08:00)
--- NOTE | 2017-06-19 03:30 | EKG ---
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
[2017-06-19 06:34] LABS: BASO % 0 % (0-3); EOS % 0 % (0-3); LYMPH # 0.6 x10^3/uL (1.0-4.8); LYMPH % 5 % (24-48); MEAN CORPUSCULAR HEMOGLOBIN 33 pg (25-35); MEAN CORPUSCULAR HGB CONC 34 g/dL (31-37); MEAN CORPUSCULAR VOLUME 96 fL (79-100); MONO % 18 % (0-9); NEUT % 77 % (31-73); PLATELET COUNT 184 x10^3/uL (140-400); RED BLOOD COUNT 3.96 x10^6/uL (4.30-5.70); RED CELL DISTRIBUTION WIDTH 12.3 % (11.5-14.5); WHITE BLOOD COUNT 11.8 x10^3/uL (4.0-11.0)
[2017-06-19 06:55] LABS: CALCIUM 9.4 mg/dL (8.5-10.1); CREATININE 0.9 mg/dL (0.7-1.3); GFR 102.5; POTASSIUM 4.6 mmol/L (3.5-5.1)
[2017-06-19] MEDS: FAMOTIDINE 20 MG/2 ML VIAL IVP SCH (09:00)
--- NOTE | 2017-06-19 09:36 | RAD ---
AP chest. History: Post bypass AP view was taken of the chest. [place]-Kulwinder catheter is in the right pulmonary artery having been pulled back in the interval since the prior study. Mediastinal drain tubes are unchanged. Endotracheal tube has been removed. NG tube has been removed. There is increased atelectasis in the left lower lobe. A left effusion is possible. There is atelectasis in the left upper lobe. Impression: 1. Worsening retrocardiac density on the left from left lower lobe and atelectasis and/or pleural effusion. 2. Endotracheal tube has been removed. 3. [place]-Kulwinder catheter in the pulmonary outflow tract or in the pulmonary artery.
--- NOTE | 2017-06-19 09:57 | PDOC ---
PROGRESS NOTES Chief Complaint Chief Complaint s.p CABG POD # 1 (06/18/17) Aneurysm, Cardiac by REBEKAH exertional dyspnea with CHF likely chest pain with dyspnea chronic combined systolic and diastolic CHF,, est EF 40% on MPI H/O CAD 2013 with 1 stent at obtuse marginal branch HTN poor control, noncompliant with emds alcohol abuse d/o, prior tobaccoism leg weakness, unsteady gait and peripheral neuropathy History of Present Illness History of Present Illness Seen in ICU POD # 1 POst op soreness On 0.7 low dose insulin gtt PAin regimen ok Up in chair was not interestd in breakfast today PLAN: CPM LAbs richi PT/OT Follow TCVS recs Vitals Vitals Vital Signs Date Time Temp Pulse Resp B/P (MAP) Pulse Ox O2 Delivery O2 Flow Rate FiO2 06/19/17 08:13 100.2 81 26 120/73 (89) 100 Nasal Cannula 2.0 100.2 Physical Exam General: Alert, Oriented X3, No acute distress Heart: Regular rate, Normal S1, Normal S2 Lungs: Clear Abdomen: Soft, No tenderness Extremities: No edema Skin: No rashes, No significant lesion Labs LABS Laboratory Tests Test 06/18/17 09:58 06/18/17 10:50 06/18/17 10:54 06/18/17 11:26 Activated Clotting Time 560 SEC (90-125) 550 SEC (90-125) Bedside Hemoglobin (Calculated) 11.2 g/dL (14-18) 10.5 g/dL (14-18) Bedside Hematocrit 33 % (37-52) 31 % (37-52) Bedside Arterial pH 7.41 (7.35-7.45) 7.40 (7.35-7.45) Bedside Arterial pCO2 37 mmHg (35-45) 35 mmHg (35-45) Bedside Arterial pO2 368 mmHg (75-100) 267 mmHg (75-100) Bedside Arterial HCO3 23 mmol/L (21-28) 22 mmol/L (21-28) Bedside Arterial Total CO2 24 mmol/L (21-32) 23 mmol/L (21-32) Arterial Bld O2 Saturation (Measur) 100 % (95-99) 100 % (95-99) Bedside Arterial Blood Base Excess -2 mmol/L (0-3) -3 mmol/L (0-3) Bedside FiO2 70.0 65.0 Bedside Sodium 138 mmol/L (135-145) 137 mmol/L (135-145) Bedside Potassium 5.5 mmol/L (3.5-5.0) 4.7 mmol/L (3.5-5.0) Glucose Level 108 mg/dL (70-99) 113 mg/dL (70-99) Bedside Ionized Calcium (Steff) 1.07 mmol/L (1.13-1.32) 1.07 mmol/L (1.13-1.32) Test 06/18/17 11:29 06/18/17 11:31 06/18/17 11:57 06/18/17 12:00 Activated Clotting Time 471 SEC (90-125) 421 SEC (90-125) Bedside Hematocrit 32 % (37-52) 28 % (37-52) Bedside Venous pH 7.40 (7.32-7.42) Bedside Venous pCO2 36 mmHg (41-51) Bedside Venous pO2 44 mmHg (20-40) Bedside Venous HCO3 22 mmol/L (24-28) Bedside Venous Blood Total CO2 23 mmol/L (21-32) Bedside Venous Blood O2 Saturation 81 % Bedside Venous Blood Base Excess -3 mmol/L (0-3) POC Venous Hemoglobin (Calc) 10.9 g/dL (14-18) Bedside FiO2 70 75.0 Bedside Sodium 137 mmol/L (135-145) 137 mmol/L (135-145) Bedside Potassium 4.7 mmol/L (3.5-5.0) 4.2 mmol/L (3.5-5.0) Glucose Level 114 mg/dL (70-99) 127 mg/dL (70-99) Bedside Ionized Calcium (Steff) 1.09 mmol/L (1.13-1.32) 1.59 mmol/L (1.13-1.32) Bedside Hemoglobin (Calculated) 9.5 g/dL (14-18) Bedside Arterial pH 7.39 (7.35-7.45) Bedside Arterial pCO2 42 mmHg (35-45) Bedside Arterial pO2 299 mmHg (75-100) Bedside Arterial HCO3 26 mmol/L (21-28) Bedside Arterial Total CO2 27 mmol/L (21-32) Arterial Bld O2 Saturation (Measur) 100 % (95-99) Bedside Arterial Blood Base Excess 1 mmol/L (0-3) Test 06/18/17 12:20 06/18/17 12:23 06/18/17 13:06 06/18/17 13:15 Bedside Hemoglobin (Calculated) 9.5 g/dL (14-18) 11.2 g/dL (14-18) Bedside Hematocrit 28 % (37-52) 33 % (37-52) Bedside Arterial pH 7.38 (7.35-7.45) 7.37 (7.35-7.45) Bedside Arterial pCO2 39 mmHg (35-45) 40 mmHg (35-45) Bedside Arterial pO2 413 mmHg (75-100) 420 mmHg (75-100) Bedside Arterial HCO3 24 mmol/L (21-28) 23 mmol/L (21-28) Bedside Arterial Total CO2 25 mmol/L (21-32) 24 mmol/L (21-32) Arterial Bld O2 Saturation (Measur) 100 % (95-99) 100 % (95-99) Bedside Arterial Blood Base Excess -2 mmol/L (0-3) -2 mmol/L (0-3) Bedside FiO2 100.0 100.0 Bedside Sodium 138 mmol/L (135-145) 140 mmol/L (135-145) Bedside Potassium 3.8 mmol/L (3.5-5.0) 3.4 mmol/L (3.5-5.0) Glucose Level 121 mg/dL (70-99) 122 mg/dL (70-99) Bedside Ionized Calcium (Steff) 1.58 mmol/L (1.13-1.32) 1.42 mmol/L (1.13-1.32) Activated Clotting Time 145 SEC (90-125) White Blood Count 11.7 x10^3/uL (4.0-11.0) Hemoglobin 11.3 g/dL (13.0-17.5) Hematocrit 33.6 % (39.0-53.0) Platelet Count 137 x10^3/uL (140-400) Prothrombin Time 17.8 SEC (11.7-14.0) Prothromb Time International Ratio 1.6 (0.8-1.1) Activated Partial Thromboplast Time 36 SEC (24-38) Fibrinogen 201 mg/dL (200-440) Test 06/18/17 13:53 06/18/17 14:35 06/18/17 14:45 06/18/17 16:05 Glucose (Fingerstick) 119 mg/dL (70-99) 141 mg/dL (70-99) O2 Saturation 100 % (92-99) Arterial Blood pH 7.40 (7.35-7.45) Arterial Blood pCO2 at Patient Temp 33 mmHg (35-46) Arterial Blood pO2 at Patient Temp 394 mmHg (65-108) Arterial Blood HCO3 20 mmol/L (21-28) Arterial Blood Base Excess -4 mmol/L (-3-3) Oxyhemoglobin 98.8 % Methemoglobin 0.4 % (0.0-1.9) Carbon Monoxide, Quantitative 0.3 % (0.0-1.9) FiO2 100 White Blood Count 9.6 x10^3/uL (4.0-11.0) Red Blood Count 3.83 x10^6/uL (4.30-5.70) Hemoglobin 12.7 g/dL (13.0-17.5) Hematocrit 37.3 % (39.0-53.0) Mean Corpuscular Volume 97 fL (79-100) Mean Corpuscular Hemoglobin 33 pg (25-35) Mean Corpuscular Hemoglobin Concent 34 g/dL (31-37) Red Cell Distribution Width 12.6 % (11.5-14.5) Platelet Count 160 x10^3/uL (140-400) Prothrombin Time 16.5 SEC (11.7-14.0) Prothromb Time International Ratio 1.4 (0.8-1.1) Activated Partial Thromboplast Time 35 SEC (24-38) Sodium Level 140 mmol/L (136-145) Potassium Level 3.8 mmol/L (3.5-5.1) Chloride Level 107 mmol/L (98-107) Carbon Dioxide Level 24 mmol/L (21-32) Anion Gap 9 (6-14) Blood Urea Nitrogen 13 mg/dL (8-26) Creatinine 0.9 mg/dL (0.7-1.3) Estimated GFR (Cockcroft-Gault) 102.5 Glucose Level 130 mg/dL (70-99) Calcium Level 9.3 mg/dL (8.5-10.1) Magnesium Level 2.2 mg/dL (1.8-2.4) Test 06/18/17 17:35 06/18/17 18:44 06/18/17 18:45 06/18/17 19:29 Glucose (Fingerstick) 136 mg/dL (70-99) 132 mg/dL (70-99) Hemoglobin 11.8 g/dL (13.0-17.5) Hematocrit 34.5 % (39.0-53.0) Mean Corpuscular Hemoglobin Concent 34 g/dL (31-37) Sodium Level 140 mmol/L (136-145) Potassium Level 4.7 mmol/L (3.5-5.1) Chloride Level 108 mmol/L (98-107) Carbon Dioxide Level 25 mmol/L (21-32) Anion Gap 7 (6-14) Blood Urea Nitrogen 11 mg/dL (8-26) Creatinine 1.1 mg/dL (0.7-1.3) Estimated GFR (Cockcroft-Gault) 81.3 Glucose Level 133 mg/dL (70-99) Calcium Level 9.1 mg/dL (8.5-10.1) Magnesium Level 2.1 mg/dL (1.8-2.4) O2 Saturation 98 % (92-99) Arterial Blood pH 7.35 (7.35-7.45) Arterial Blood pCO2 at Patient Temp 40 mmHg (35-46) Arterial Blood pO2 at Patient Temp 145 mmHg (65-108) Arterial Blood HCO3 22 mmol/L (21-28) Arterial Blood Base Excess -4 mmol/L (-3-3) FiO2 40 Test 06/18/17 19:48 06/18/17 20:51 06/18/17 22:02 06/18/17 23:05 Glucose (Fingerstick) 137 mg/dL (70-99) 126 mg/dL (70-99) 141 mg/dL (70-99) 136 mg/dL (70-99) Test 06/19/17 00:40 06/19/17 04:16 06/19/17 06:00 06/19/17 06:19 Glucose (Fingerstick) 135 mg/dL (70-99) 127 mg/dL (70-99) 126 mg/dL (70-99) White Blood Count 11.8 x10^3/uL (4.0-11.0) Red Blood Count 3.96 x10^6/uL (4.30-5.70) Hemoglobin 13.0 g/dL (13.0-17.5) Hematocrit 38.0 % (39.0-53.0) Mean Corpuscular Volume 96 fL (79-100) Mean Corpuscular Hemoglobin 33 pg (25-35) Mean Corpuscular Hemoglobin Concent 34 g/dL (31-37) Red Cell Distribution Width 12.3 % (11.5-14.5) Platelet Count 184 x10^3/uL (140-400) Neutrophils (%) (Auto) 77 % (31-73) Lymphocytes (%) (Auto) 5 % (24-48) Monocytes (%) (Auto) 18 % (0-9) Eosinophils (%) (Auto) 0 % (0-3) Basophils (%) (Auto) 0 % (0-3) Neutrophils # (Auto) 9.0 x10^3uL (1.8-7.7) Lymphocytes # (Auto) 0.6 x10^3/uL (1.0-4.8) Monocytes # (Auto) 2.1 x10^3/uL (0.0-1.1) Eosinophils # (Auto) 0.0 x10^3/uL (0.0-0.7) Basophils # (Auto) 0.0 x10^3/uL (0.0-0.2) Sodium Level 138 mmol/L (136-145) Potassium Level 4.6 mmol/L (3.5-5.1) Chloride Level 105 mmol/L (98-107) Carbon Dioxide Level 24 mmol/L (21-32) Anion Gap 9 (6-14) Blood Urea Nitrogen 10 mg/dL (8-26) Creatinine 0.9 mg/dL (0.7-1.3) Estimated GFR (Cockcroft-Gault) 102.5 Glucose Level 133 mg/dL (70-99) Calcium Level 9.4 mg/dL (8.5-10.1) Magnesium Level 2.0 mg/dL (1.8-2.4) Test 06/19/17 07:50 Glucose (Fingerstick) 131 mg/dL (70-99) Review of Systems Review of Systems post op soreness, all else is neg Assessment and Plan Assessmemt and Plan Problems Medical Problems: (1) Chest pain Status: Acute (2) Shortness of breath Status: Acute Problems: Comment Review of Relevant I have reviewed the following items chetan (where applicable) has been applied. Labs Laboratory Tests Test 06/17/17 20:10 06/18/17 08:41 06/18/17 08:44 06/18/17 09:58 Nasal Screen MRSA (PCR) Negative (Negative) Bedside Hemoglobin (Calculated) 12.6 g/dL (14-18) Bedside Hematocrit 37 % (37-52) Bedside Arterial pH 7.38 (7.35-7.45) Bedside Arterial pCO2 39 mmHg (35-45) Bedside Arterial pO2 209 mmHg (75-100) Bedside Arterial HCO3 23 mmol/L (21-28) Bedside Arterial Total CO2 24 mmol/L (21-32) Arterial Bld O2 Saturation (Measur) 100 % (95-99) Bedside Arterial Blood Base Excess -2 mmol/L (0-3) Bedside FiO2 100.0 Bedside Sodium 139 mmol/L (135-145) Bedside Potassium 4.1 mmol/L (3.5-5.0) Glucose Level 113 mg/dL (70-99) Bedside Ionized Calcium (Steff) 1.22 mmol/L (1.13-1.32) Activated Clotting Time 133 SEC (90-125) 560 SEC (90-125) Test 06/18/17 10:50 06/18/17 10:54 06/18/17 11:26 06/18/17 11:29 Bedside Hemoglobin (Calculated) 11.2 g/dL (14-18) 10.5 g/dL (14-18) Bedside Hematocrit 33 % (37-52) 31 % (37-52) Bedside Arterial pH 7.41 (7.35-7.45) 7.40 (7.35-7.45) Bedside Arterial pCO2 37 mmHg (35-45) 35 mmHg (35-45) Bedside Arterial pO2 368 mmHg (75-100) 267 mmHg (75-100) Bedside Arterial HCO3 23 mmol/L (21-28) 22 mmol/L (21-28) Bedside Arterial Total CO2 24 mmol/L (21-32) 23 mmol/L (21-32) Arterial Bld O2 Saturation (Measur) 100 % (95-99) 100 % (95-99) Bedside Arterial Blood Base Excess -2 mmol/L (0-3) -3 mmol/L (0-3) Bedside FiO2 70.0 65.0 Bedside Sodium 138 mmol/L (135-145) 137 mmol/L (135-145) Bedside Potassium 5.5 mmol/L (3.5-5.0) 4.7 mmol/L (3.5-5.0) Glucose Level 108 mg/dL (70-99) 113 mg/dL (70-99) Bedside Ionized Calcium (Steff) 1.07 mmol/L (1.13-1.32) 1.07 mmol/L (1.13-1.32) Activated Clotting Time 550 SEC (90-125) 471 SEC (90-125) Test 06/18/17 11:31 06/18/17 11:57 06/18/17 12:00 06/18/17 12:20 Bedside Hematocrit 32 % (37-52) 28 % (37-52) 28 % (37-52) Bedside Venous pH 7.40 (7.32-7.42) Bedside Venous pCO2 36 mmHg (41-51) Bedside Venous pO2 44 mmHg (20-40) Bedside Venous HCO3 22 mmol/L (24-28) Bedside Venous Blood Total CO2 23 mmol/L (21-32) Bedside Venous Blood O2 Saturation 81 % Bedside Venous Blood Base Excess -3 mmol/L (0-3) POC Venous Hemoglobin (Calc) 10.9 g/dL (14-18) Bedside FiO2 70 75.0 100.0 Bedside Sodium 137 mmol/L (135-145) 137 mmol/L (135-145) 138 mmol/L (135-145) Bedside Potassium 4.7 mmol/L (3.5-5.0) 4.2 mmol/L (3.5-5.0) 3.8 mmol/L (3.5-5.0) Glucose Level 114 mg/dL (70-99) 127 mg/dL (70-99) 121 mg/dL (70-99) Bedside Ionized Calcium (Steff) 1.09 mmol/L (1.13-1.32) 1.59 mmol/L (1.13-1.32) 1.58 mmol/L (1.13-1.32) Bedside Hemoglobin (Calculated) 9.5 g/dL (14-18) 9.5 g/dL (14-18) Bedside Arterial pH 7.39 (7.35-7.45) 7.38 (7.35-7.45) Bedside Arterial pCO2 42 mmHg (35-45) 39 mmHg (35-45) Bedside Arterial pO2 299 mmHg (75-100) 413 mmHg (75-100) Bedside Arterial HCO3 26 mmol/L (21-28) 24 mmol/L (21-28) Bedside Arterial Total CO2 27 mmol/L (21-32) 25 mmol/L (21-32) Arterial Bld O2 Saturation (Measur) 100 % (95-99) 100 % (95-99) Bedside Arterial Blood Base Excess 1 mmol/L (0-3) -2 mmol/L (0-3) Activated Clotting Time 421 SEC (90-125) Test 06/18/17 12:23 06/18/17 13:06 06/18/17 13:15 06/18/17 13:53 Activated Clotting Time 145 SEC (90-125) Bedside Hemoglobin (Calculated) 11.2 g/dL (14-18) Bedside Hematocrit 33 % (37-52) Bedside Arterial pH 7.37 (7.35-7.45) Bedside Arterial pCO2 40 mmHg (35-45) Bedside Arterial pO2 420 mmHg (75-100) Bedside Arterial HCO3 23 mmol/L (21-28) Bedside Arterial Total CO2 24 mmol/L (21-32) Arterial Bld O2 Saturation (Measur) 100 % (95-99) Bedside Arterial Blood Base Excess -2 mmol/L (0-3) Bedside FiO2 100.0 Bedside Sodium 140 mmol/L (135-145) Bedside Potassium 3.4 mmol/L (3.5-5.0) Glucose Level 122 mg/dL (70-99) Bedside Ionized Calcium (Steff) 1.42 mmol/L (1.13-1.32) White Blood Count 11.7 x10^3/uL (4.0-11.0) Hemoglobin 11.3 g/dL (13.0-17.5) Hematocrit 33.6 % (39.0-53.0) Platelet Count 137 x10^3/uL (140-400) Prothrombin Time 17.8 SEC (11.7-14.0) Prothromb Time International Ratio 1.6 (0.8-1.1) Activated Partial Thromboplast Time 36 SEC (24-38) Fibrinogen 201 mg/dL (200-440) Glucose (Fingerstick) 119 mg/dL (70-99) Test 06/18/17 14:35 06/18/17 14:45 06/18/17 16:05 06/18/17 17:35 O2 Saturation 100 % (92-99) Arterial Blood pH 7.40 (7.35-7.45) Arterial Blood pCO2 at Patient Temp 33 mmHg (35-46) Arterial Blood pO2 at Patient Temp 394 mmHg (65-108) Arterial Blood HCO3 20 mmol/L (21-28) Arterial Blood Base Excess -4 mmol/L (-3-3) Oxyhemoglobin 98.8 % Methemoglobin 0.4 % (0.0-1.9) Carbon Monoxide, Quantitative 0.3 % (0.0-1.9) FiO2 100 White Blood Count 9.6 x10^3/uL (4.0-11.0) Red Blood Count 3.83 x10^6/uL (4.30-5.70) Hemoglobin 12.7 g/dL (13.0-17.5) Hematocrit 37.3 % (39.0-53.0) Mean Corpuscular Volume 97 fL (79-100) Mean Corpuscular Hemoglobin 33 pg (25-35) Mean Corpuscular Hemoglobin Concent 34 g/dL (31-37) Red Cell Distribution Width 12.6 % (11.5-14.5) Platelet Count 160 x10^3/uL (140-400) Prothrombin Time 16.5 SEC (11.7-14.0) Prothromb Time International Ratio 1.4 (0.8-1.1) Activated Partial Thromboplast Time 35 SEC (24-38) Sodium Level 140 mmol/L (136-145) Potassium Level 3.8 mmol/L (3.5-5.1) Chloride Level 107 mmol/L (98-107) Carbon Dioxide Level 24 mmol/L (21-32) Anion Gap 9 (6-14) Blood Urea Nitrogen 13 mg/dL (8-26) Creatinine 0.9 mg/dL (0.7-1.3) Estimated GFR (Cockcroft-Gault) 102.5 Glucose Level 130 mg/dL (70-99) Calcium Level 9.3 mg/dL (8.5-10.1) Magnesium Level 2.2 mg/dL (1.8-2.4) Glucose (Fingerstick) 141 mg/dL (70-99) 136 mg/dL (70-99) Test 06/18/17 18:44 06/18/17 18:45 06/18/17 19:29 06/18/17 19:48 Glucose (Fingerstick) 132 mg/dL (70-99) 137 mg/dL (70-99) Hemoglobin 11.8 g/dL (13.0-17.5) Hematocrit 34.5 % (39.0-53.0) Mean Corpuscular Hemoglobin Concent 34 g/dL (31-37) Sodium Level 140 mmol/L (136-145) Potassium Level 4.7 mmol/L (3.5-5.1) Chloride Level 108 mmol/L (98-107) Carbon Dioxide Level 25 mmol/L (21-32) Anion Gap 7 (6-14) Blood Urea Nitrogen 11 mg/dL (8-26) Creatinine 1.1 mg/dL (0.7-1.3) Estimated GFR (Cockcroft-Gault) 81.3 Glucose Level 133 mg/dL (70-99) Calcium Level 9.1 mg/dL (8.5-10.1) Magnesium Level 2.1 mg/dL (1.8-2.4) O2 Saturation 98 % (92-99) Arterial Blood pH 7.35 (7.35-7.45) Arterial Blood pCO2 at Patient Temp 40 mmHg (35-46) Arterial Blood pO2 at Patient Temp 145 mmHg (65-108) Arterial Blood HCO3 22 mmol/L (21-28) Arterial Blood Base Excess -4 mmol/L (-3-3) FiO2 40 Test 06/18/17 20:51 06/18/17 22:02 06/18/17 23:05 06/19/17 00:40 Glucose (Fingerstick) 126 mg/dL (70-99) 141 mg/dL (70-99) 136 mg/dL (70-99) 135 mg/dL (70-99) Test 06/19/17 04:16 06/19/17 06:00 06/19/17 06:19 06/19/17 07:50 Glucose (Fingerstick) 127 mg/dL (70-99) 126 mg/dL (70-99) 131 mg/dL (70-99) White Blood Count 11.8 x10^3/uL (4.0-11.0) Red Blood Count 3.96 x10^6/uL (4.30-5.70) Hemoglobin 13.0 g/dL (13.0-17.5) Hematocrit 38.0 % (39.0-53.0) Mean Corpuscular Volume 96 fL (79-100) Mean Corpuscular Hemoglobin 33 pg (25-35) Mean Corpuscular Hemoglobin Concent 34 g/dL (31-37) Red Cell Distribution Width 12.3 % (11.5-14.5) Platelet Count 184 x10^3/uL (140-400) Neutrophils (%) (Auto) 77 % (31-73) Lymphocytes (%) (Auto) 5 % (24-48) Monocytes (%) (Auto) 18 % (0-9) Eosinophils (%) (Auto) 0 % (0-3) Basophils (%) (Auto) 0 % (0-3) Neutrophils # (Auto) 9.0 x10^3uL (1.8-7.7) Lymphocytes # (Auto) 0.6 x10^3/uL (1.0-4.8) Monocytes # (Auto) 2.1 x10^3/uL (0.0-1.1) Eosinophils # (Auto) 0.0 x10^3/uL (0.0-0.7) Basophils # (Auto) 0.0 x10^3/uL (0.0-0.2) Sodium Level 138 mmol/L (136-145) Potassium Level 4.6 mmol/L (3.5-5.1) Chloride Level 105 mmol/L (98-107) Carbon Dioxide Level 24 mmol/L (21-32) Anion Gap 9 (6-14) Blood Urea Nitrogen 10 mg/dL (8-26) Creatinine 0.9 mg/dL (0.7-1.3) Estimated GFR (Cockcroft-Gault) 102.5 Glucose Level 133 mg/dL (70-99) Calcium Level 9.4 mg/dL (8.5-10.1) Magnesium Level 2.0 mg/dL (1.8-2.4) Laboratory Tests Test 06/18/17 09:58 06/18/17 10:50 06/18/17 10:54 06/18/17 11:26 Activated Clotting Time 560 SEC (90-125) 550 SEC (90-125) Bedside Hemoglobin (Calculated) 11.2 g/dL (14-18) 10.5 g/dL (14-18) Bedside Hematocrit 33 % (37-52) 31 % (37-52) Bedside Arterial pH 7.41 (7.35-7.45) 7.40 (7.35-7.45) Bedside Arterial pCO2 37 mmHg (35-45) 35 mmHg (35-45) Bedside Arterial pO2 368 mmHg (75-100) 267 mmHg (75-100) Bedside Arterial HCO3 23 mmol/L (21-28) 22 mmol/L (21-28) Bedside Arterial Total CO2 24 mmol/L (21-32) 23 mmol/L (21-32) Arterial Bld O2 Saturation (Measur) 100 % (95-99) 100 % (95-99) Bedside Arterial Blood Base Excess -2 mmol/L (0-3) -3 mmol/L (0-3) Bedside FiO2 70.0 65.0 Bedside Sodium 138 mmol/L (135-145) 137 mmol/L (135-145) Bedside Potassium 5.5 mmol/L (3.5-5.0) 4.7 mmol/L (3.5-5.0) Glucose Level 108 mg/dL (70-99) 113 mg/dL (70-99) Bedside Ionized Calcium (Steff) 1.07 mmol/L (1.13-1.32) 1.07 mmol/L (1.13-1.32) Test 06/18/17 11:29 06/18/17 11:31 06/18/17 11:57 06/18/17 12:00 Activated Clotting Time 471 SEC (90-125) 421 SEC (90-125) Bedside Hematocrit 32 % (37-52) 28 % (37-52) Bedside Venous pH 7.40 (7.32-7.42) Bedside Venous pCO2 36 mmHg (41-51) Bedside Venous pO2 44 mmHg (20-40) Bedside Venous HCO3 22 mmol/L (24-28) Bedside Venous Blood Total CO2 23 mmol/L (21-32) Bedside Venous Blood O2 Saturation 81 % Bedside Venous Blood Base Excess -3 mmol/L (0-3) POC Venous Hemoglobin (Calc) 10.9 g/dL (14-18) Bedside FiO2 70 75.0 Bedside Sodium 137 mmol/L (135-145) 137 mmol/L (135-145) Bedside Potassium 4.7 mmol/L (3.5-5.0) 4.2 mmol/L (3.5-5.0) Glucose Level 114 mg/dL (70-99) 127 mg/dL (70-99) Bedside Ionized Calcium (Steff) 1.09 mmol/L (1.13-1.32) 1.59 mmol/L (1.13-1.32) Bedside Hemoglobin (Calculated) 9.5 g/dL (14-18) Bedside Arterial pH 7.39 (7.35-7.45) Bedside Arterial pCO2 42 mmHg (35-45) Bedside Arterial pO2 299 mmHg (75-100) Bedside Arterial HCO3 26 mmol/L (21-28) Bedside Arterial Total CO2 27 mmol/L (21-32) Arterial Bld O2 Saturation (Measur) 100 % (95-99) Bedside Arterial Blood Base Excess 1 mmol/L (0-3) Test 06/18/17 12:20 06/18/17 12:23 06/18/17 13:06 06/18/17 13:15 Bedside Hemoglobin (Calculated) 9.5 g/dL (14-18) 11.2 g/dL (14-18) Bedside Hematocrit 28 % (37-52) 33 % (37-52) Bedside Arterial pH 7.38 (7.35-7.45) 7.37 (7.35-7.45) Bedside Arterial pCO2 39 mmHg (35-45) 40 mmHg (35-45) Bedside Arterial pO2 413 mmHg (75-100) 420 mmHg (75-100) Bedside Arterial HCO3 24 mmol/L (21-28) 23 mmol/L (21-28) Bedside Arterial Total CO2 25 mmol/L (21-32) 24 mmol/L (21-32) Arterial Bld O2 Saturation (Measur) 100 % (95-99) 100 % (95-99) Bedside Arterial Blood Base Excess -2 mmol/L (0-3) -2 mmol/L (0-3) Bedside FiO2 100.0 100.0 Bedside Sodium 138 mmol/L (135-145) 140 mmol/L (135-145) Bedside Potassium 3.8 mmol/L (3.5-5.0) 3.4 mmol/L (3.5-5.0) Glucose Level 121 mg/dL (70-99) 122 mg/dL (70-99) Bedside Ionized Calcium (Steff) 1.58 mmol/L (1.13-1.32) 1.42 mmol/L (1.13-1.32) Activated Clotting Time 145 SEC (90-125) White Blood Count 11.7 x10^3/uL (4.0-11.0) Hemoglobin 11.3 g/dL (13.0-17.5) Hematocrit 33.6 % (39.0-53.0) Platelet Count 137 x10^3/uL (140-400) Prothrombin Time 17.8 SEC (11.7-14.0) Prothromb Time International Ratio 1.6 (0.8-1.1) Activated Partial Thromboplast Time 36 SEC (24-38) Fibrinogen 201 mg/dL (200-440) Test 06/18/17 13:53 06/18/17 14:35 06/18/17 14:45 06/18/17 16:05 Glucose (Fingerstick) 119 mg/dL (70-99) 141 mg/dL (70-99) O2 Saturation 100 % (92-99) Arterial Blood pH 7.40 (7.35-7.45) Arterial Blood pCO2 at Patient Temp 33 mmHg (35-46) Arterial Blood pO2 at Patient Temp 394 mmHg (65-108) Arterial Blood HCO3 20 mmol/L (21-28) Arterial Blood Base Excess -4 mmol/L (-3-3) Oxyhemoglobin 98.8 % Methemoglobin 0.4 % (0.0-1.9) Carbon Monoxide, Quantitative 0.3 % (0.0-1.9) FiO2 100 White Blood Count 9.6 x10^3/uL (4.0-11.0) Red Blood Count 3.83 x10^6/uL (4.30-5.70) Hemoglobin 12.7 g/dL (13.0-17.5) Hematocrit 37.3 % (39.0-53.0) Mean Corpuscular Volume 97 fL (79-100) Mean Corpuscular Hemoglobin 33 pg (25-35) Mean Corpuscular Hemoglobin Concent 34 g/dL (31-37) Red Cell Distribution Width 12.6 % (11.5-14.5) Platelet Count 160 x10^3/uL (140-400) Prothrombin Time 16.5 SEC (11.7-14.0) Prothromb Time International Ratio 1.4 (0.8-1.1) Activated Partial Thromboplast Time 35 SEC (24-38) Sodium Level 140 mmol/L (136-145) Potassium Level 3.8 mmol/L (3.5-5.1) Chloride Level 107 mmol/L (98-107) Carbon Dioxide Level 24 mmol/L (21-32) Anion Gap 9 (6-14) Blood Urea Nitrogen 13 mg/dL (8-26) Creatinine 0.9 mg/dL (0.7-1.3) Estimated GFR (Cockcroft-Gault) 102.5 Glucose Level 130 mg/dL (70-99) Calcium Level 9.3 mg/dL (8.5-10.1) Magnesium Level 2.2 mg/dL (1.8-2.4) Test 06/18/17 17:35 06/18/17 18:44 06/18/17 18:45 06/18/17 19:29 Glucose (Fingerstick) 136 mg/dL (70-99) 132 mg/dL (70-99) Hemoglobin 11.8 g/dL (13.0-17.5) Hematocrit 34.5 % (39.0-53.0) Mean Corpuscular Hemoglobin Concent 34 g/dL (31-37) Sodium Level 140 mmol/L (136-145) Potassium Level 4.7 mmol/L (3.5-5.1) Chloride Level 108 mmol/L (98-107) Carbon Dioxide Level 25 mmol/L (21-32) Anion Gap 7 (6-14) Blood Urea Nitrogen 11 mg/dL (8-26) Creatinine 1.1 mg/dL (0.7-1.3) Estimated GFR (Cockcroft-Gault) 81.3 Glucose Level 133 mg/dL (70-99) Calcium Level 9.1 mg/dL (8.5-10.1) Magnesium Level 2.1 mg/dL (1.8-2.4) O2 Saturation 98 % (92-99) Arterial Blood pH 7.35 (7.35-7.45) Arterial Blood pCO2 at Patient Temp 40 mmHg (35-46) Arterial Blood pO2 at Patient Temp 145 mmHg (65-108) Arterial Blood HCO3 22 mmol/L (21-28) Arterial Blood Base Excess -4 mmol/L (-3-3) FiO2 40 Test 06/18/17 19:48 06/18/17 20:51 06/18/17 22:02 06/18/17 23:05 Glucose (Fingerstick) 137 mg/dL (70-99) 126 mg/dL (70-99) 141 mg/dL (70-99) 136 mg/dL (70-99) Test 06/19/17 00:40 06/19/17 04:16 06/19/17 06:00 06/19/17 06:19 Glucose (Fingerstick) 135 mg/dL (70-99) 127 mg/dL (70-99) 126 mg/dL (70-99) White Blood Count 11.8 x10^3/uL (4.0-11.0) Red Blood Count 3.96 x10^6/uL (4.30-5.70) Hemoglobin 13.0 g/dL (13.0-17.5) Hematocrit 38.0 % (39.0-53.0) Mean Corpuscular Volume 96 fL (79-100) Mean Corpuscular Hemoglobin 33 pg (25-35) Mean Corpuscular Hemoglobin Concent 34 g/dL (31-37) Red Cell Distribution Width 12.3 % (11.5-14.5) Platelet Count 184 x10^3/uL (140-400) Neutrophils (%) (Auto) 77 % (31-73) Lymphocytes (%) (Auto) 5 % (24-48) Monocytes (%) (Auto) 18 % (0-9) Eosinophils (%) (Auto) 0 % (0-3) Basophils (%) (Auto) 0 % (0-3) Neutrophils # (Auto) 9.0 x10^3uL (1.8-7.7) Lymphocytes # (Auto) 0.6 x10^3/uL (1.0-4.8) Monocytes # (Auto) 2.1 x10^3/uL (0.0-1.1) Eosinophils # (Auto) 0.0 x10^3/uL (0.0-0.7) Basophils # (Auto) 0.0 x10^3/uL (0.0-0.2) Sodium Level 138 mmol/L (136-145) Potassium Level 4.6 mmol/L (3.5-5.1) Chloride Level 105 mmol/L (98-107) Carbon Dioxide Level 24 mmol/L (21-32) Anion Gap 9 (6-14) Blood Urea Nitrogen 10 mg/dL (8-26) Creatinine 0.9 mg/dL (0.7-1.3) Estimated GFR (Cockcroft-Gault) 102.5 Glucose Level 133 mg/dL (70-99) Calcium Level 9.4 mg/dL (8.5-10.1) Magnesium Level 2.0 mg/dL (1.8-2.4) Test 06/19/17 07:50 Glucose (Fingerstick) 131 mg/dL (70-99) Medications Current Medications Ondansetron HCl (Zofran) 4 mg PRN Q8HRS PRN IV NAUSEA/VOMITING; Start 06/08/17 at 16:45; Stop 06/09/17 at 14:42; Status DC Morphine Sulfate 2 mg PRN Q2HR PRN IV PAIN; Start 06/08/17 at 16:45; Stop 06/09 at 14:42; Status DC Acetaminophen (Tylenol) 650 mg PRN Q6HRS PRN PO FEVER; Start 06/08/17 at 17:45 ; Stop 06/18/17 at 14:09; Status DC Ondansetron HCl (Zofran) 4 mg PRN Q6HRS PRN IV NAUSEA/VOMITING; Start 06/08/17 at 17:45; Stop 06/18/17 at 14:11; Status DC Morphine Sulfate 2 mg PRN Q2HR PRN IV PAIN; Start 06/08/17 at 17:45; Stop 06/18 at 14:11; Status DC Tramadol HCl (Ultram) 50 mg PRN Q6HRS PRN PO PAIN MILD TO MOD; Start 06/08/17 at 17:45 Hydralazine HCl (Apresoline) 10 mg PRN Q4HRS PRN IVP ELEVATED BP, SEE COMMENTS ; Start 06/08/17 at 17:45 Docusate Sodium (Colace) 100 mg PRN DAILY PRN PO CONSTIPATION; Start 06/08/17 at 17:45 Albuterol Sulfate (Ventolin Neb Soln) 2.5 mg PRN Q4HRS PRN NEB SHORTNESS OF BREATH; Start 06/08/17 at 17:45; Stop 06/18/17 at 14:10; Status DC Enoxaparin Sodium (Lovenox 40mg Syringe) 40 mg Q24H SQ Last administered on 19:41; Start 06/08/17 at 18:00; Stop 06/14/17 at 14:20; Status DC Folic Acid (Folic Acid) 1 mg DAILY PO Last administered on 06/17/17 09:46; Start 06/08/17 at 18:00 Thiamine Mononitrate (Vitamin B-1) 100 mg DAILY PO Last administered on 09:46; Start 06/08/17 at 18:00 Lorazepam (Ativan) 2 mg PRN Q4HRS PRN IV ANXIETY / AGITATION Last administered on 06/09/17 00:49; Start 06/08/17 at 17:45 Lisinopril (Prinivil) 40 mg DAILY PO ; Start 06/08/17 at 18:00; Stop 06/08/17 at 18:45; Status DC Lisinopril (Prinivil) 20 mg DAILY PO ; Start 06/09/17 at 09:00; Stop 06/11/17 at 17:13; Status DC Zolpidem Tartrate (Ambien) 5 mg PRN QHS PRN PO INSOMNIA Last administered on 23:33; Start 06/08/17 at 20:45 Vitamin B Complex (Folbic Tablet) 1 tab DAILY PO Last administered on 09:46; Start 06/09/17 at 10:30 Cyanocobalamin (Vitamin B-12) 1,000 mcg 1X ONCE IM Last administered on 13:46; Start 06/09/17 at 10:45; Stop 06/09/17 at 10:46; Status DC Regadenoson (Lexiscan) 0.4 mg 1X ONCE IV ; Start 06/10/17 at 08:45; Stop at 08:46; Status DC Regadenoson (Lexiscan) 0.4 mg STK-MED ONCE IV ; Start 06/10/17 at 09:24; Stop at 09:25; Status DC Regadenoson (Lexiscan) 0.4 mg STK-MED ONCE IV ; Start 06/10/17 at 09:24; Stop at 10:04; Status DC Iohexol (Omnipaque 300 Mg/ml) 100 ml STK-MED ONCE .ROUTE ; Start 06/11/17 at 12: 54; Stop 06/11/17 at 12:55; Status DC Lidocaine HCl 20 ml STK-MED ONCE .ROUTE ; Start 06/11/17 at 12:55; Stop at 12:56; Status DC Heparin Sodium/ Sodium Chloride 500 ml @ As Directed STK-MED ONCE .ROUTE ; Start 06/11/17 at 12:55; Stop 06/11/17 at 12:56; Status DC Midazolam HCl (Versed) 2 mg STK-MED ONCE .ROUTE ; Start 06/11/17 at 13:23; Stop 06/11/17 at 13:24; Status DC Fentanyl Citrate (Fentanyl 2ml Vial) 100 mcg STK-MED ONCE .ROUTE ; Start at 13:23; Stop 06/11/17 at 13:24; Status DC Heparin Sodium/ Sodium Chloride 1,000 unit 1X ONCE IART Last administered on 13:52; Start 06/11/17 at 13:45; Stop 06/11/17 at 13:46; Status DC Midazolam HCl (Versed) 2 mg 1X ONCE IV Last administered on 06/11/17 13:52; Start 06/11/17 at 13:45; Stop 06/11/17 at 13:46; Status DC Fentanyl Citrate (Fentanyl 2ml Vial) 100 mcg 1X ONCE IV Last administered on 13:52; Start 06/11/17 at 13:45; Stop 06/11/17 at 13:46; Status DC Iohexol (Omnipaque 300 Mg/ml) 100 ml 1X ONCE IART Last administered on 13:51; Start 06/11/17 at 13:45; Stop 06/11/17 at 13:46; Status DC Lidocaine HCl 20 ml 1X ONCE IJ Last administered on 06/11/17 13:51; Start at 13:45; Stop 06/11/17 at 13:46; Status DC Metoprolol Tartrate (Lopressor) 25 mg BID PO Last administered on 06/17/17 22: 09; Start 06/11/17 at 21:00; Stop 06/18/17 at 14:10; Status DC Iohexol (Omnipaque 300 Mg/ml) 75 ml 1X ONCE IV Last administered on 06/12/17 08:12; Start 06/12/17 at 08:30; Stop 06/12/17 at 08:31; Status DC Info (Do NOT chart on this entry -- for MONITORING) 1 each PRN DAILY PRN MC SEE COMMENTS; Start 06/12/17 at 08:15; Stop 06/14/17 at 08:14; Status DC Lidocaine HCl (Xylocaine 2% Topical 5gm Tube) 1 garnt 1X ONCE TP ; Start at 14:00; Stop 06/12/17 at 14:01; Status DC Lidocaine HCl (Viscous Lidocaine) 15 ml 1X ONCE MM ; Start 06/12/17 at 14:00; Stop 06/12/17 at 14:01; Status Cancel Benzocaine (Hurricaine One) 3 spray 1X ONCE MM ; Start 06/12/17 at 14:00; Stop 06/12/17 at 14:01; Status DC Lidocaine HCl (Viscous Lidocaine) 15 ml 1X PRN PRN MM FOR REBEKAH Last administered on 06/14/17 13:14; Start 06/14/17 at 09:00; Stop 06/14/17 at 18:00 ; Status DC Benzocaine (Hurricaine One) 3 spray 1X ONCE MM Last administered on 06/14/17 13:14; Start 06/14/17 at 07:00; Stop 06/14/17 at 07:01; Status DC Lidocaine HCl (Xylocaine 2% Topical 5gm Tube) 1 grant 1X ONCE TP Last administered on 06/14/17 13:17; Start 06/14/17 at 07:00; Stop 06/14/17 at 07:01 ; Status DC Lidocaine HCl (Xylocaine 2% Topical 30gm Tube) 30 grant STK-MED ONCE TP ; Start at 10:57; Stop 06/14/17 at 10:58; Status DC Ondansetron HCl (Zofran) 4 mg PRN Q6HRS PRN IV NAUSEA/VOMITING; Start 06/14/17 at 11:45; Stop 06/15/17 at 11:44; Status DC Fentanyl Citrate (Fentanyl 2ml Vial) 25 mcg PRN Q5MIN PRN IV MILD PAIN; Start 06/14/17 at 11:45; Stop 06/15/17 at 11:44; Status DC Fentanyl Citrate (Fentanyl 2ml Vial) 50 mcg PRN Q5MIN PRN IV MODERATE PAIN; Start 06/14/17 at 11:45; Stop 06/15/17 at 11:44; Status DC Morphine Sulfate 1 mg PRN Q10MIN PRN IV SEVERE PAIN; Start 06/14/17 at 11:45; Stop 06/15/17 at 11:44; Status DC Ringer's Solution 1,000 ml @ 30 mls/hr Q24H IV Last administered on 06/14/17t 11:31; Start 06/14/17 at 11:31; Stop 06/14/17 at 23:30; Status DC Lidocaine HCl (Xylocaine-Mpf 1% Vial) 2 ml 1X PRN PRN ID IV START; Start at 11:45; Stop 06/15/17 at 11:44; Status DC Hydromorphone HCl (Dilaudid) 0.5 mg PRN Q10MIN PRN IV SEV PAIN, Second choice; Start 06/14/17 at 11:45; Stop 06/15/17 at 11:44; Status DC Prochlorperazine Edisylate (Compazine) 5 mg PACU PRN PRN IV NAUSEA, MRX1; Start 06/14/17 at 11:45; Stop 06/15/17 at 11:44; Status DC Propofol 20 ml @ As Directed STK-MED ONCE IV ; Start 06/14/17 at 13:32; Stop at 13:33; Status DC Ondansetron HCl (Zofran) 4 mg PRN Q6HRS PRN IV NAUSEA/VOMITING; Start 06/15/17 at 07:00; Stop 06/16/17 at 06:59; Status DC Fentanyl Citrate (Fentanyl 2ml Vial) 25 mcg PRN Q5MIN PRN IV MILD PAIN; Start 06/15/17 at 07:00; Stop 06/16/17 at 06:59; Status DC Fentanyl Citrate (Fentanyl 2ml Vial) 50 mcg PRN Q5MIN PRN IV MODERATE PAIN; Start 06/15/17 at 07:00; Stop 06/16/17 at 06:59; Status DC Morphine Sulfate 1 mg PRN Q10MIN PRN IV SEVERE PAIN; Start 06/15/17 at 07:00; Stop 06/16/17 at 06:59; Status DC Ringer's Solution 1,000 ml @ 30 mls/hr Q24H IV ; Start 06/15/17 at 07:00; Stop 06/15/17 at 18:59; Status DC Lidocaine HCl (Xylocaine-Mpf 1% Vial) 2 ml PRN 1X PRN ID IV START; Start at 07:00; Stop 06/16/17 at 06:59; Status DC Hydromorphone HCl (Dilaudid) 0.5 mg PRN Q10MIN PRN IV SEV PAIN, Second choice; Start 06/15/17 at 07:00; Stop 06/16/17 at 06:59; Status DC Prochlorperazine Edisylate (Compazine) 5 mg PACU PRN PRN IV NAUSEA, MRX1; Start 06/15/17 at 07:00; Stop 06/16/17 at 06:59; Status DC Potassium Chloride 70 meq/ Sodium Bicarbonate 12.5 meq/Lidocaine HCl 24 ml/ Parenteral Electrolytes 571.5 ml @ 571.5 mls/ hr 1X PERIOP ONCE IRR ; Start at 06:00; Stop 06/15/17 at 06:59; Status DC Potassium Chloride 15 meq/ Sodium Bicarbonate 12.5 meq/Parenteral Electrolytes 520 ml @ 520 mls/hr 1X PERIOP ONCE IRR ; Start 06/15/17 at 06:00; Stop at 06:59; Status DC Heparin Sodium (Porcine) 10736 unit/Ringer's Solution 1,020 ml @ 1,020 mls/hr 1X PERIOP ONCE IRR ; Start 06/15/17 at 06:00; Stop 06/15/17 at 06:59; Status DC Etomidate (Amidate) 20 mg STK-MED ONCE IV ; Start 06/15/17 at 06:14; Stop at 06:15; Status DC Lidocaine HCl (Lidocaine Pf 2% Vial) 5 ml STK-MED ONCE .ROUTE ; Start 06/15/17 at 06:14; Stop 06/15/17 at 06:15; Status DC Ephedrine Sulfate 50 mg STK-MED ONCE IV ; Start 06/15/17 at 06:14; Stop at 06:15; Status DC Phenylephrine HCl (Arthur-Synephrine Inj) 10 mg STK-MED ONCE .ROUTE ; Start at 06:15; Stop 06/15/17 at 06:16; Status DC Rocuronium [place] (Zemuron) 100 mg STK-MED ONCE .ROUTE ; Start 06/15/17 at 06: 15; Stop 06/15/17 at 06:16; Status DC Heparin Sodium (Porcine) 30,000 unit STK-MED ONCE .ROUTE ; Start 06/15/17 at 06: 15; Stop 06/15/17 at 06:16; Status DC Aminocaproic Acid (Amicar) 5,000 mg STK-MED ONCE IV ; Start 06/15/17 at 06:15; Stop 06/15/17 at 06:16; Status DC Nitroglycerin/ Dextrose 250 ml @ As Directed STK-MED ONCE IV ; Start 06/15/17 at 06:15; Stop 06/15/17 at 06:16; Status DC Sufentanil Citrate (Sufenta) 100 mcg STK-MED ONCE .ROUTE ; Start 06/15/17 at 06: 17; Stop 06/15/17 at 06:18; Status DC Midazolam HCl (Versed) 2 mg STK-MED ONCE .ROUTE ; Start 06/15/17 at 06:20; Stop 06/15/17 at 06:21; Status DC Cefazolin Sodium/ Dextrose 50 ml @ 100 mls/hr 1X PREOP ONCE IV ; Start at 07:45; Stop 06/15/17 at 08:14; Status DC Cefazolin Sodium 1 gm/Sodium Chloride 500 ml @ 500 mls/hr 1X PERIOP ONCE IRR Last administered on 06/18/17 08:59; Start 06/18/17 at 06:00; Stop 06/18/17 at 06:59; Status DC Potassium Chloride 70 meq/ Sodium Bicarbonate 12.5 meq/Lidocaine HCl 24 ml/ Parenteral Electrolytes 571.5 ml @ 571.5 mls/ hr 1X PERIOP ONCE IRR Last administered on 06/18/17 10:45; Start 06/18/17 at 06:00; Stop 06/18/17 at 06:59 ; Status DC Potassium Chloride 15 meq/ Sodium Bicarbonate 12.5 meq/Parenteral Electrolytes 520 ml @ 520 mls/hr 1X PERIOP ONCE IRR Last administered on 06/18/17 10:45; Start 06/18/17 at 06:00; Stop 06/18/17 at 06:59; Status DC Heparin Sodium (Porcine) 43497 unit/Ringer's Solution 1,020 ml @ 1,020 mls/hr 1X PERIOP ONCE IRR Last administered on 06/18/17 08:59; Start 06/18/17 at 06: 00; Stop 06/18/17 at 06:59; Status DC Ondansetron HCl (Zofran) 4 mg PRN Q6HRS PRN IV NAUSEA/VOMITING; Start 06/18/17 at 07:00; Stop 06/18/17 at 14:11; Status DC Fentanyl Citrate (Fentanyl 2ml Vial) 25 mcg PRN Q5MIN PRN IV MILD PAIN; Start 06/18/17 at 07:00; Stop 06/18/17 at 14:12; Status DC Fentanyl Citrate (Fentanyl 2ml Vial) 50 mcg PRN Q5MIN PRN IV MODERATE PAIN; Start 06/18/17 at 07:00; Stop 06/18/17 at 14:12; Status DC Morphine Sulfate 1 mg PRN Q10MIN PRN IV SEVERE PAIN; Start 06/18/17 at 07:00; Stop 06/18/17 at 14:11; Status DC Ringer's Solution 1,000 ml @ 30 mls/hr Q24H IV ; Start 06/18/17 at 07:00; Stop 06/18/17 at 14:12; Status DC Lidocaine HCl (Xylocaine-Mpf 1% Vial) 2 ml PRN 1X PRN ID IV START; Start at 07:00; Stop 06/18/17 at 14:12; Status DC Hydromorphone HCl (Dilaudid) 0.5 mg PRN Q10MIN PRN IV SEV PAIN, Second choice; Start 06/18/17 at 07:00; Stop 06/18/17 at 14:13; Status DC Prochlorperazine Edisylate (Compazine) 5 mg PACU PRN PRN IV NAUSEA, MRX1; Start 06/18/17 at 07:00; Stop 06/18/17 at 14:13; Status DC Cefazolin Sodium/ Dextrose 50 ml @ As Directed STK-MED ONCE IV ; Start 06/18/17 at 06:27; Stop 06/18/17 at 06:28; Status DC Vancomycin HCl (Vanco) 10 gm STK-MED ONCE .ROUTE Last administered on 08:59; Start 06/18/17 at 06:24; Stop 06/18/17 at 07:24; Status DC Cellulose 1 each STK-MED ONCE .ROUTE Last administered on 06/18/17 08:59; Start 06/18/17 at 06:24; Stop 06/18/17 at 07:24; Status DC Papaverine HCl 60 mg STK-MED ONCE .ROUTE Last administered on 06/18/17 08:59; Start 06/18/17 at 06:24; Stop 06/18/17 at 07:24; Status DC Aspirin (Aspirin) 300 mg STK-MED ONCE .ROUTE Last administered on 06/18/17 13: 21; Start 06/18/17 at 06:24; Stop 06/18/17 at 07:24; Status DC Sodium Chloride (Sodium Chloride) 50 ml STK-MED ONCE IJ Last administered on 08:59; Start 06/18/17 at 06:24; Stop 06/18/17 at 07:24; Status DC Cefazolin Sodium/ Dextrose 50 ml @ 100 mls/hr 1X ONCE IV Last administered on 06/18/17 12:33; Start 06/18/17 at 11:30; Stop 06/18/17 at 11:59; Status DC Sodium Chloride (Normal Saline Flush) 3 ml PRN Q12HR PRN IV AFTER MEDS AND BLOOD DRAWS; Start 06/18/17 at 13:30 Ringer's Solution 1,000 ml @ 30 mls/hr Q24H IV Last administered on 06/18/17 14:29; Start 06/18/17 at 13:22 Albumin Human 250 ml @ 60 mls/hr PRN Q4HRS PRN IV SEE I/O RECORD Last administered on 06/18/17 18:07; Start 06/18/17 at 13:30 Insulin Human Regular 150 unit/ Sodium Chloride 151.5 ml @ 0 mls/hr CONT PRN PRN IV SEE I/O RECORD Last administered on 06/18/17 16:34; Start 06/18/17 at 13 :30 Dextrose (Dextrose 50%-Water Syringe) 25 gm PRN Q15MIN PRN IV LOW BLOOD SUGAR; Start 06/18/17 at 13:30 Amiodarone HCl 150 mg/Dextrose 103 ml @ 200 mls/hr STAT IV Last administered on 06/18/17 14:47; Start 06/18/17 at 13:30 Amiodarone HCl 900 mg/Dextrose 518 ml @ 33.33 mls/ hr STAT IV Last administered on 06/18/17 14:47; Start 06/18/17 at 13:30 Amiodarone HCl (Cordarone) 400 mg BID PO ; Start 06/19/17 at 21:00 Info 1 ea CONT PRN PRN MC SEE COMMENTS; Start 06/18/17 at 13:30 Info 1 ea CONT PRN PRN MC SEE COMMENTS; Start 06/18/17 at 13:30 Magnesium Sulfate/ Dextrose 100 ml @ 100 mls/hr PRN DAILY PRN IV FOR MAG < 2.2 ; Start 06/18/17 at 13:30 Famotidine (Pepcid) 20 mg BID IVP Last administered on 06/18/17 20:41; Start 06/18/17 at 21:00 Ondansetron HCl (Zofran) 4 mg PRN Q4HRS PRN IV NAUSEA/VOMITING; Start 06/18/17 at 13:30 Morphine Sulfate 2 mg PRN Q1HR PRN IV PAIN Last administered on 06/19/17 02:09 ; Start 06/18/17 at 13:30 Acetaminophen (Tylenol) 650 mg PRN Q4HRS PRN PO MILD PAIN / TEMP; Start at 13:30 Meperidine HCl (Demerol) 12.5 mg PRN Q15MIN PRN IV SHIVERING Last administered on 06/18/17 14:28; Start 06/18/17 at 13:30; Stop 06/19/17 at 13:22 Senna/Docusate Sodium (Senna Plus) 1 tab BID PO ; Start 06/18/17 at 21:00 Bisacodyl (Dulcolax Supp) 10 mg PRN DAILY PRN ME NO BOWEL MOVEMENT; Start 06/18 at 13:30 Aspirin (Ecotrin) 325 mg DAILYWBKFT PO ; Start 06/19/17 at 08:00 Aspirin (Aspirin) 300 mg PRN DAILY PRN ME IF UNABLE TO TAKE PO; Start 06/18/17 at 13:30 Albuterol Sulfate (Ventolin Neb Soln) 2.5 mg PRN Q4HRS PRN NEB SHORTNESS OF BREATH; Start 06/18/17 at 13:30 Metoprolol Tartrate (Lopressor) 25 mg BID PO ; Start 06/19/17 at 09:00 Nicardipine HCl 50 mg/Sodium Chloride 270 ml @ 0 mls/hr CONT PRN PRN IV PER PROTOCOL; Start 06/18/17 at 13:30 Oxycodone/ Acetaminophen (Percocet 5/325) 1 tab PRN Q4HRS PRN PO MILD PAIN Last administered on 06/19/17 05:28; Start 06/18/17 at 13:30 Oxycodone/ Acetaminophen (Percocet 5/325) 2 tab PRN Q4HRS PRN PO MODERATE PAIN , SEVERE PAIN Last administered on 06/19/17 08:00; Start 06/18/17 at 13:30 Cefazolin Sodium 1 gm/Sodium Chloride 50 ml @ 100 mls/hr Q8H IV Last administered on 06/19/17 04:24; Start 06/18/17 at 20:00; Stop 06/20/17 at 04:29 Clevidipine 100 ml @ 0 mls/hr CONT PRN IV PER PROTOCOL Last administered on 14:28; Start 06/18/17 at 14:15 Propofol 100 ml @ 0 mls/hr CONT PRN IV SEE I/O RECORD Last administered on 06/18 14:47; Start 06/18/17 at 14:30 Potassium Chloride 50 ml @ 50 mls/hr Q1H IV Last administered on 06/18/17 17: 42; Start 06/18/17 at 16:15; Stop 06/18/17 at 18:14; Status DC Active Scripts Active Reported [none] Vitals/I & O Vital Sign - Last 24 Hours 06/18/17 06/18/17 06/18/17 06/18/17 13:45 13:45 13:51 13:55 Temp 97.6 97.5 97.6 97.5 Pulse 75 75 Resp 14 14 B/P (MAP) 143/70 (94) 165/77 (106) Pulse Ox 100 100 O2 Delivery Mechanical Ventilator Ventilator Ventilator Ventilator 06/18/17 06/18/17 06/18/17 06/18/17 14:10 14:10 14:20 14:27 Temp 97.6 97.7 97.6 97.7 Pulse 74 70 Resp 14 14 14 B/P (MAP) 131/67 (88) 133/83 (100) 190/81 (117) Pulse Ox 100 100 100 O2 Delivery Ventilator Ventilator Ventilator 06/18/17 06/18/17 06/18/17 06/18/17 14:28 14:28 14:35 14:47 Temp 97.8 97.8 Pulse 73 70 Resp 14 14 B/P (MAP) 180/79 146/71 (96) 128/58 Pulse Ox 100 100 O2 Delivery Ventilator Ventilator 06/18/17 06/18/17 06/18/17 06/18/17 14:50 15:00 15:00 15:18 Temp 97.8 98.0 97.8 98.0 Pulse 70 69 Resp 14 14 14 19 B/P (MAP) 139/61 (87) 130/64 (86) Pulse Ox 100 100 100 100 O2 Delivery Ventilator Ventilator Ventilator Ventilator 06/18/17 06/18/17 06/18/17 06/18/17 15:27 16:00 16:00 16:00 Temp 98.0 99.2 98.0 99.2 Pulse 69 84 Resp 14 22 B/P (MAP) 100/52 (68) 155/74 (101) Pulse Ox 100 100 100 O2 Delivery Ventilator Ventilator Mechanical Ventilator Ventilator 06/18/17 06/18/17 06/18/17 06/18/17 16:30 16:44 17:30 18:12 Temp 99.6 100.4 99.6 100.4 Pulse 78 77 Resp 14 32 14 B/P (MAP) 145/73 (97) 112/59 (76) Pulse Ox 100 100 100 100 O2 Delivery Ventilator Ventilator Ventilator Ventilator 06/18/17 06/18/17 06/18/1717 18:34 19:00 19:46 20:00 Temp 100.5 100.7 100.5 100.7 Pulse 77 86 Resp 18 B/P (MAP) 110/59 (76) 125/64 (84) Pulse Ox 100 100 98 O2 Delivery cpap trial Ventilator Ventilator Nasal Cannula O2 Flow Rate 4.0 06/18/17 06/18/17 06/18/17 06/18/17 20:00 21:00 22:00 23:00 Temp 101.0 100.9 100.8 100.5 101.0 100.9 100.8 100.5 Pulse 92 87 87 86 Resp 23 20 24 24 B/P (MAP) 140/67 (91) 117/55 (75) 102/75 (84) 129/66 (87) Pulse Ox 100 100 100 100 O2 Delivery Nasal Cannula Nasal Cannula Nasal Cannula Nasal Cannula O2 Flow Rate 2.0 2.0 4.0 4.0 06/19/17 06/19/17 06/19/17 06/19/17 00:00 00:00 01:00 02:00 Temp 100.3 100.4 100.6 100.3 100.4 100.6 Pulse 88 86 87 Resp 33 B/P (MAP) 138/68 (91) 130/62 (84) 128/64 (85) Pulse Ox 100 100 100 O2 Delivery Nasal Cannula Nasal Cannula Nasal Cannula Nasal Cannula O2 Flow Rate 4.0 4.0 4.0 4.0 06/19/17 06/19/17 06/19/17 06/19/17 02:09 02:46 02:47 03:00 Temp 100.3 100.3 Pulse 87 Resp 30 B/P (MAP) 127/61 (83) Pulse Ox 100 100 100 100 O2 Delivery Nasal Cannula Nasal Cannula Nasal Cannula Nasal Cannula O2 Flow Rate 4.0 4.0 4.0 4.0 06/19/17 06/19/17 06/19/17 06/19/17 03:47 04:00 04:00 05:00 Temp 100.1 100.3 100.1 100.3 Pulse 84 85 Resp 30 B/P (MAP) 122/60 (80) 135/67 (89) Pulse Ox 100 100 100 O2 Delivery Nasal Cannula Nasal Cannula Nasal Cannula Nasal Cannula O2 Flow Rate 4.0 4.0 4.0 4.0 06/19/17 06/19/17 06/19/17 06/19/17 05:28 06:00 08:00 08:13 Temp 100.2 100.2 100.2 100.2 Pulse 86 81 Resp 20 22 26 26 B/P (MAP) 131/62 (85) 120/73 (89) Pulse Ox 100 100 100 100 O2 Delivery Nasal Cannula Nasal Cannula Nasal Cannula Nasal Cannula O2 Flow Rate 4.0 4.0 2.0 2.0 ONIEL COUGHLIN MD Jun 19, 2017 09:57
[2017-06-19] MEDS: SENNOSIDES/DOCUSATE 8.6/50MG TABLET. PO SCH ×2 (10:08→21:09)
[2017-06-19] MEDS: VITAMIN B12,B9,B6 COMPLEX 1 TABLET. PO SCH (10:09)
[2017-06-19] MEDS: ASPIRIN ENTERIC COATED 325 MG TABLET.DR. PO SCH (10:11)
[2017-06-19] MEDS: THIAMINE 100 MG TABLET. PO SCH (10:11)
[2017-06-19] MEDS: FOLIC ACID 1 MG TABLET. PO SCH (10:11)
[2017-06-19] MEDS: METOPROLOL TART IMMED RELEASE 25 MG TABLET. PO SCH ×2 (10:11→21:09)
[2017-06-19] MEDS: FAMOTIDINE 20 MG TABLET. PO SCH ×2 (10:37→21:10)
--- NOTE | 2017-06-19 12:46 | PDOC ---
Progress Note Subjective Subjective Doing very well. On 2 lit NC. Normotensive and in SR. Minimal tube output. Hb 13 , creatinine 0.9, good UO. CXR shows LLL atelectasis ROS ROS No nausea No vomiting No SOB No pain No rash Vital Sign Vital Signs Vital Signs Date Time Temp Pulse Resp B/P (MAP) Pulse Ox O2 Delivery O2 Flow Rate FiO2 06/19/17 11:53 97.9 72 23 109/73 (85) 100 2.0 97.9 06/19/17 10:00 Nasal Cannula Physical Exam PHYSICAL EXAM GENERAL: NAD, Alert HEENT: PERRL, OC/OP NECK: Supple, no JVD, no LN LUNGS: Clear HEART: S1S2, no gallop, no murmur ABD: Soft, NT, no organomegaly, no rebound EXT: No edema, no cyanosis PREFABRICATOR: Alert, oriented x 3, no focal neurologic deficit SKIN: No rash IV: ok Labs Lab Laboratory Tests Test 06/18/17 13:06 06/18/17 13:15 06/18/17 13:53 06/18/17 14:35 Bedside Hemoglobin (Calculated) 11.2 g/dL (14-18) Bedside Hematocrit 33 % (37-52) Bedside Arterial pH 7.37 (7.35-7.45) Bedside Arterial pCO2 40 mmHg (35-45) Bedside Arterial pO2 420 mmHg (75-100) Bedside Arterial HCO3 23 mmol/L (21-28) Bedside Arterial Total CO2 24 mmol/L (21-32) Arterial Bld O2 Saturation (Measur) 100 % (95-99) Bedside Arterial Blood Base Excess -2 mmol/L (0-3) Bedside FiO2 100.0 Bedside Sodium 140 mmol/L (135-145) Bedside Potassium 3.4 mmol/L (3.5-5.0) Glucose Level 122 mg/dL (70-99) Bedside Ionized Calcium (Steff) 1.42 mmol/L (1.13-1.32) White Blood Count 11.7 x10^3/uL (4.0-11.0) Hemoglobin 11.3 g/dL (13.0-17.5) Hematocrit 33.6 % (39.0-53.0) Platelet Count 137 x10^3/uL (140-400) Prothrombin Time 17.8 SEC (11.7-14.0) Prothromb Time International Ratio 1.6 (0.8-1.1) Activated Partial Thromboplast Time 36 SEC (24-38) Fibrinogen 201 mg/dL (200-440) Glucose (Fingerstick) 119 mg/dL (70-99) O2 Saturation 100 % (92-99) Arterial Blood pH 7.40 (7.35-7.45) Arterial Blood pCO2 at Patient Temp 33 mmHg (35-46) Arterial Blood pO2 at Patient Temp 394 mmHg (65-108) Arterial Blood HCO3 20 mmol/L (21-28) Arterial Blood Base Excess -4 mmol/L (-3-3) Oxyhemoglobin 98.8 % Methemoglobin 0.4 % (0.0-1.9) Carbon Monoxide, Quantitative 0.3 % (0.0-1.9) FiO2 100 Test 06/18/17 14:45 06/18/17 16:05 06/18/17 17:35 06/18/17 18:44 White Blood Count 9.6 x10^3/uL (4.0-11.0) Red Blood Count 3.83 x10^6/uL (4.30-5.70) Hemoglobin 12.7 g/dL (13.0-17.5) Hematocrit 37.3 % (39.0-53.0) Mean Corpuscular Volume 97 fL (79-100) Mean Corpuscular Hemoglobin 33 pg (25-35) Mean Corpuscular Hemoglobin Concent 34 g/dL (31-37) Red Cell Distribution Width 12.6 % (11.5-14.5) Platelet Count 160 x10^3/uL (140-400) Prothrombin Time 16.5 SEC (11.7-14.0) Prothromb Time International Ratio 1.4 (0.8-1.1) Activated Partial Thromboplast Time 35 SEC (24-38) Sodium Level 140 mmol/L (136-145) Potassium Level 3.8 mmol/L (3.5-5.1) Chloride Level 107 mmol/L (98-107) Carbon Dioxide Level 24 mmol/L (21-32) Anion Gap 9 (6-14) Blood Urea Nitrogen 13 mg/dL (8-26) Creatinine 0.9 mg/dL (0.7-1.3) Estimated GFR (Cockcroft-Gault) 102.5 Glucose Level 130 mg/dL (70-99) Calcium Level 9.3 mg/dL (8.5-10.1) Magnesium Level 2.2 mg/dL (1.8-2.4) Glucose (Fingerstick) 141 mg/dL (70-99) 136 mg/dL (70-99) 132 mg/dL (70-99) Test 06/18/17 18:45 06/18/17 19:29 06/18/17 19:48 06/18/17 20:51 Hemoglobin 11.8 g/dL (13.0-17.5) Hematocrit 34.5 % (39.0-53.0) Mean Corpuscular Hemoglobin Concent 34 g/dL (31-37) Sodium Level 140 mmol/L (136-145) Potassium Level 4.7 mmol/L (3.5-5.1) Chloride Level 108 mmol/L (98-107) Carbon Dioxide Level 25 mmol/L (21-32) Anion Gap 7 (6-14) Blood Urea Nitrogen 11 mg/dL (8-26) Creatinine 1.1 mg/dL (0.7-1.3) Estimated GFR (Cockcroft-Gault) 81.3 Glucose Level 133 mg/dL (70-99) Calcium Level 9.1 mg/dL (8.5-10.1) Magnesium Level 2.1 mg/dL (1.8-2.4) O2 Saturation 98 % (92-99) Arterial Blood pH 7.35 (7.35-7.45) Arterial Blood pCO2 at Patient Temp 40 mmHg (35-46) Arterial Blood pO2 at Patient Temp 145 mmHg (65-108) Arterial Blood HCO3 22 mmol/L (21-28) Arterial Blood Base Excess -4 mmol/L (-3-3) FiO2 40 Glucose (Fingerstick) 137 mg/dL (70-99) 126 mg/dL (70-99) Test 06/18/17 22:02 06/18/17 23:05 06/19/17 00:40 06/19/17 04:16 Glucose (Fingerstick) 141 mg/dL (70-99) 136 mg/dL (70-99) 135 mg/dL (70-99) 127 mg/dL (70-99) Test 06/19/17 06:00 06/19/17 06:19 06/19/17 07:50 06/19/17 09:59 White Blood Count 11.8 x10^3/uL (4.0-11.0) Red Blood Count 3.96 x10^6/uL (4.30-5.70) Hemoglobin 13.0 g/dL (13.0-17.5) Hematocrit 38.0 % (39.0-53.0) Mean Corpuscular Volume 96 fL (79-100) Mean Corpuscular Hemoglobin 33 pg (25-35) Mean Corpuscular Hemoglobin Concent 34 g/dL (31-37) Red Cell Distribution Width 12.3 % (11.5-14.5) Platelet Count 184 x10^3/uL (140-400) Neutrophils (%) (Auto) 77 % (31-73) Lymphocytes (%) (Auto) 5 % (24-48) Monocytes (%) (Auto) 18 % (0-9) Eosinophils (%) (Auto) 0 % (0-3) Basophils (%) (Auto) 0 % (0-3) Neutrophils # (Auto) 9.0 x10^3uL (1.8-7.7) Lymphocytes # (Auto) 0.6 x10^3/uL (1.0-4.8) Monocytes # (Auto) 2.1 x10^3/uL (0.0-1.1) Eosinophils # (Auto) 0.0 x10^3/uL (0.0-0.7) Basophils # (Auto) 0.0 x10^3/uL (0.0-0.2) Sodium Level 138 mmol/L (136-145) Potassium Level 4.6 mmol/L (3.5-5.1) Chloride Level 105 mmol/L (98-107) Carbon Dioxide Level 24 mmol/L (21-32) Anion Gap 9 (6-14) Blood Urea Nitrogen 10 mg/dL (8-26) Creatinine 0.9 mg/dL (0.7-1.3) Estimated GFR (Cockcroft-Gault) 102.5 Glucose Level 133 mg/dL (70-99) Calcium Level 9.4 mg/dL (8.5-10.1) Magnesium Level 2.0 mg/dL (1.8-2.4) Glucose (Fingerstick) 126 mg/dL (70-99) 131 mg/dL (70-99) 132 mg/dL (70-99) Test 06/19/17 12:03 Glucose (Fingerstick) 127 mg/dL (70-99) Objective Assessment POD#1, s/p CABG x 2 (DOSS to LAD, 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 On 2 lit NC. Normotensive and in SR. Minimal tube output. Hb 13 , creatinine 0.9, good UO. CXR shows LLL atelectasis A-line and [place] removed Plan Plan of Care D/c cordis D/c hemphill D/c mediastinal drains ASA, b suleiman, statin Oral amiodarone for Afib prophylaxis Ambulate and I/S Transfer to stepdown CORY CALLAWAY MD Jun 19, 2017 12:46
[2017-06-19] MEDS: AMIODARONE HCL 200 MG TABLET. PO SCH ×2 (13:00→21:10)
--- NOTE | 2017-06-19 14:30 | PDOC ---
PROGRESS NOTES Subjective Subjective Patient is up in chair. He ambulated around the unit earlier. 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 I agree with present plan. Change to by mouth amiodarone. Problems Medical Problems: (1) Chest pain Status: Acute (2) Shortness of breath Status: Acute Comment Review of Relevant I have reviewed the following items chetan (where applicable) has been applied. Labs Laboratory Tests Test 06/17/17 20:10 06/18/17 08:41 06/18/17 08:44 06/18/17 09:58 Nasal Screen MRSA (PCR) Negative (Negative) Bedside Hemoglobin (Calculated) 12.6 g/dL (14-18) Bedside Hematocrit 37 % (37-52) Bedside Arterial pH 7.38 (7.35-7.45) Bedside Arterial pCO2 39 mmHg (35-45) Bedside Arterial pO2 209 mmHg (75-100) Bedside Arterial HCO3 23 mmol/L (21-28) Bedside Arterial Total CO2 24 mmol/L (21-32) Arterial Bld O2 Saturation (Measur) 100 % (95-99) Bedside Arterial Blood Base Excess -2 mmol/L (0-3) Bedside FiO2 100.0 Bedside Sodium 139 mmol/L (135-145) Bedside Potassium 4.1 mmol/L (3.5-5.0) Glucose Level 113 mg/dL (70-99) Bedside Ionized Calcium (Steff) 1.22 mmol/L (1.13-1.32) Activated Clotting Time 133 SEC (90-125) 560 SEC (90-125) Test 06/18/17 10:50 06/18/17 10:54 06/18/17 11:26 06/18/17 11:29 Bedside Hemoglobin (Calculated) 11.2 g/dL (14-18) 10.5 g/dL (14-18) Bedside Hematocrit 33 % (37-52) 31 % (37-52) Bedside Arterial pH 7.41 (7.35-7.45) 7.40 (7.35-7.45) Bedside Arterial pCO2 37 mmHg (35-45) 35 mmHg (35-45) Bedside Arterial pO2 368 mmHg (75-100) 267 mmHg (75-100) Bedside Arterial HCO3 23 mmol/L (21-28) 22 mmol/L (21-28) Bedside Arterial Total CO2 24 mmol/L (21-32) 23 mmol/L (21-32) Arterial Bld O2 Saturation (Measur) 100 % (95-99) 100 % (95-99) Bedside Arterial Blood Base Excess -2 mmol/L (0-3) -3 mmol/L (0-3) Bedside FiO2 70.0 65.0 Bedside Sodium 138 mmol/L (135-145) 137 mmol/L (135-145) Bedside Potassium 5.5 mmol/L (3.5-5.0) 4.7 mmol/L (3.5-5.0) Glucose Level 108 mg/dL (70-99) 113 mg/dL (70-99) Bedside Ionized Calcium (Steff) 1.07 mmol/L (1.13-1.32) 1.07 mmol/L (1.13-1.32) Activated Clotting Time 550 SEC (90-125) 471 SEC (90-125) Test 06/18/17 11:31 06/18/17 11:57 06/18/17 12:00 06/18/17 12:20 Bedside Hematocrit 32 % (37-52) 28 % (37-52) 28 % (37-52) Bedside Venous pH 7.40 (7.32-7.42) Bedside Venous pCO2 36 mmHg (41-51) Bedside Venous pO2 44 mmHg (20-40) Bedside Venous HCO3 22 mmol/L (24-28) Bedside Venous Blood Total CO2 23 mmol/L (21-32) Bedside Venous Blood O2 Saturation 81 % Bedside Venous Blood Base Excess -3 mmol/L (0-3) POC Venous Hemoglobin (Calc) 10.9 g/dL (14-18) Bedside FiO2 70 75.0 100.0 Bedside Sodium 137 mmol/L (135-145) 137 mmol/L (135-145) 138 mmol/L (135-145) Bedside Potassium 4.7 mmol/L (3.5-5.0) 4.2 mmol/L (3.5-5.0) 3.8 mmol/L (3.5-5.0) Glucose Level 114 mg/dL (70-99) 127 mg/dL (70-99) 121 mg/dL (70-99) Bedside Ionized Calcium (Steff) 1.09 mmol/L (1.13-1.32) 1.59 mmol/L (1.13-1.32) 1.58 mmol/L (1.13-1.32) Bedside Hemoglobin (Calculated) 9.5 g/dL (14-18) 9.5 g/dL (14-18) Bedside Arterial pH 7.39 (7.35-7.45) 7.38 (7.35-7.45) Bedside Arterial pCO2 42 mmHg (35-45) 39 mmHg (35-45) Bedside Arterial pO2 299 mmHg (75-100) 413 mmHg (75-100) Bedside Arterial HCO3 26 mmol/L (21-28) 24 mmol/L (21-28) Bedside Arterial Total CO2 27 mmol/L (21-32) 25 mmol/L (21-32) Arterial Bld O2 Saturation (Measur) 100 % (95-99) 100 % (95-99) Bedside Arterial Blood Base Excess 1 mmol/L (0-3) -2 mmol/L (0-3) Activated Clotting Time 421 SEC (90-125) Test 06/18/17 12:23 06/18/17 13:06 06/18/17 13:15 06/18/17 13:53 Activated Clotting Time 145 SEC (90-125) Bedside Hemoglobin (Calculated) 11.2 g/dL (14-18) Bedside Hematocrit 33 % (37-52) Bedside Arterial pH 7.37 (7.35-7.45) Bedside Arterial pCO2 40 mmHg (35-45) Bedside Arterial pO2 420 mmHg (75-100) Bedside Arterial HCO3 23 mmol/L (21-28) Bedside Arterial Total CO2 24 mmol/L (21-32) Arterial Bld O2 Saturation (Measur) 100 % (95-99) Bedside Arterial Blood Base Excess -2 mmol/L (0-3) Bedside FiO2 100.0 Bedside Sodium 140 mmol/L (135-145) Bedside Potassium 3.4 mmol/L (3.5-5.0) Glucose Level 122 mg/dL (70-99) Bedside Ionized Calcium (Steff) 1.42 mmol/L (1.13-1.32) White Blood Count 11.7 x10^3/uL (4.0-11.0) Hemoglobin 11.3 g/dL (13.0-17.5) Hematocrit 33.6 % (39.0-53.0) Platelet Count 137 x10^3/uL (140-400) Prothrombin Time 17.8 SEC (11.7-14.0) Prothromb Time International Ratio 1.6 (0.8-1.1) Activated Partial Thromboplast Time 36 SEC (24-38) Fibrinogen 201 mg/dL (200-440) Glucose (Fingerstick) 119 mg/dL (70-99) Test 06/18/17 14:35 06/18/17 14:45 06/18/17 16:05 06/18/17 17:35 O2 Saturation 100 % (92-99) Arterial Blood pH 7.40 (7.35-7.45) Arterial Blood pCO2 at Patient Temp 33 mmHg (35-46) Arterial Blood pO2 at Patient Temp 394 mmHg (65-108) Arterial Blood HCO3 20 mmol/L (21-28) Arterial Blood Base Excess -4 mmol/L (-3-3) Oxyhemoglobin 98.8 % Methemoglobin 0.4 % (0.0-1.9) Carbon Monoxide, Quantitative 0.3 % (0.0-1.9) FiO2 100 White Blood Count 9.6 x10^3/uL (4.0-11.0) Red Blood Count 3.83 x10^6/uL (4.30-5.70) Hemoglobin 12.7 g/dL (13.0-17.5) Hematocrit 37.3 % (39.0-53.0) Mean Corpuscular Volume 97 fL (79-100) Mean Corpuscular Hemoglobin 33 pg (25-35) Mean Corpuscular Hemoglobin Concent 34 g/dL (31-37) Red Cell Distribution Width 12.6 % (11.5-14.5) Platelet Count 160 x10^3/uL (140-400) Prothrombin Time 16.5 SEC (11.7-14.0) Prothromb Time International Ratio 1.4 (0.8-1.1) Activated Partial Thromboplast Time 35 SEC (24-38) Sodium Level 140 mmol/L (136-145) Potassium Level 3.8 mmol/L (3.5-5.1) Chloride Level 107 mmol/L (98-107) Carbon Dioxide Level 24 mmol/L (21-32) Anion Gap 9 (6-14) Blood Urea Nitrogen 13 mg/dL (8-26) Creatinine 0.9 mg/dL (0.7-1.3) Estimated GFR (Cockcroft-Gault) 102.5 Glucose Level 130 mg/dL (70-99) Calcium Level 9.3 mg/dL (8.5-10.1) Magnesium Level 2.2 mg/dL (1.8-2.4) Glucose (Fingerstick) 141 mg/dL (70-99) 136 mg/dL (70-99) Test 06/18/17 18:44 06/18/17 18:45 06/18/17 19:29 06/18/17 19:48 Glucose (Fingerstick) 132 mg/dL (70-99) 137 mg/dL (70-99) Hemoglobin 11.8 g/dL (13.0-17.5) Hematocrit 34.5 % (39.0-53.0) Mean Corpuscular Hemoglobin Concent 34 g/dL (31-37) Sodium Level 140 mmol/L (136-145) Potassium Level 4.7 mmol/L (3.5-5.1) Chloride Level 108 mmol/L (98-107) Carbon Dioxide Level 25 mmol/L (21-32) Anion Gap 7 (6-14) Blood Urea Nitrogen 11 mg/dL (8-26) Creatinine 1.1 mg/dL (0.7-1.3) Estimated GFR (Cockcroft-Gault) 81.3 Glucose Level 133 mg/dL (70-99) Calcium Level 9.1 mg/dL (8.5-10.1) Magnesium Level 2.1 mg/dL (1.8-2.4) O2 Saturation 98 % (92-99) Arterial Blood pH 7.35 (7.35-7.45) Arterial Blood pCO2 at Patient Temp 40 mmHg (35-46) Arterial Blood pO2 at Patient Temp 145 mmHg (65-108) Arterial Blood HCO3 22 mmol/L (21-28) Arterial Blood Base Excess -4 mmol/L (-3-3) FiO2 40 Test 06/18/17 20:51 06/18/17 22:02 06/18/17 23:05 06/19/17 00:40 Glucose (Fingerstick) 126 mg/dL (70-99) 141 mg/dL (70-99) 136 mg/dL (70-99) 135 mg/dL (70-99) Test 06/19/17 04:16 06/19/17 06:00 06/19/17 06:19 06/19/17 07:50 Glucose (Fingerstick) 127 mg/dL (70-99) 126 mg/dL (70-99) 131 mg/dL (70-99) White Blood Count 11.8 x10^3/uL (4.0-11.0) Red Blood Count 3.96 x10^6/uL (4.30-5.70) Hemoglobin 13.0 g/dL (13.0-17.5) Hematocrit 38.0 % (39.0-53.0) Mean Corpuscular Volume 96 fL (79-100) Mean Corpuscular Hemoglobin 33 pg (25-35) Mean Corpuscular Hemoglobin Concent 34 g/dL (31-37) Red Cell Distribution Width 12.3 % (11.5-14.5) Platelet Count 184 x10^3/uL (140-400) Neutrophils (%) (Auto) 77 % (31-73) Lymphocytes (%) (Auto) 5 % (24-48) Monocytes (%) (Auto) 18 % (0-9) Eosinophils (%) (Auto) 0 % (0-3) Basophils (%) (Auto) 0 % (0-3) Neutrophils # (Auto) 9.0 x10^3uL (1.8-7.7) Lymphocytes # (Auto) 0.6 x10^3/uL (1.0-4.8) Monocytes # (Auto) 2.1 x10^3/uL (0.0-1.1) Eosinophils # (Auto) 0.0 x10^3/uL (0.0-0.7) Basophils # (Auto) 0.0 x10^3/uL (0.0-0.2) Sodium Level 138 mmol/L (136-145) Potassium Level 4.6 mmol/L (3.5-5.1) Chloride Level 105 mmol/L (98-107) Carbon Dioxide Level 24 mmol/L (21-32) Anion Gap 9 (6-14) Blood Urea Nitrogen 10 mg/dL (8-26) Creatinine 0.9 mg/dL (0.7-1.3) Estimated GFR (Cockcroft-Gault) 102.5 Glucose Level 133 mg/dL (70-99) Calcium Level 9.4 mg/dL (8.5-10.1) Magnesium Level 2.0 mg/dL (1.8-2.4) Test 06/19/17 09:59 06/19/17 12:03 Glucose (Fingerstick) 132 mg/dL (70-99) 127 mg/dL (70-99) Laboratory Tests Test 06/18/17 14:35 06/18/17 14:45 06/18/17 16:05 06/18/17 17:35 O2 Saturation 100 % (92-99) Arterial Blood pH 7.40 (7.35-7.45) Arterial Blood pCO2 at Patient Temp 33 mmHg (35-46) Arterial Blood pO2 at Patient Temp 394 mmHg (65-108) Arterial Blood HCO3 20 mmol/L (21-28) Arterial Blood Base Excess -4 mmol/L (-3-3) Oxyhemoglobin 98.8 % Methemoglobin 0.4 % (0.0-1.9) Carbon Monoxide, Quantitative 0.3 % (0.0-1.9) FiO2 100 White Blood Count 9.6 x10^3/uL (4.0-11.0) Red Blood Count 3.83 x10^6/uL (4.30-5.70) Hemoglobin 12.7 g/dL (13.0-17.5) Hematocrit 37.3 % (39.0-53.0) Mean Corpuscular Volume 97 fL (79-100) Mean Corpuscular Hemoglobin 33 pg (25-35) Mean Corpuscular Hemoglobin Concent 34 g/dL (31-37) Red Cell Distribution Width 12.6 % (11.5-14.5) Platelet Count 160 x10^3/uL (140-400) Prothrombin Time 16.5 SEC (11.7-14.0) Prothromb Time International Ratio 1.4 (0.8-1.1) Activated Partial Thromboplast Time 35 SEC (24-38) Sodium Level 140 mmol/L (136-145) Potassium Level 3.8 mmol/L (3.5-5.1) Chloride Level 107 mmol/L (98-107) Carbon Dioxide Level 24 mmol/L (21-32) Anion Gap 9 (6-14) Blood Urea Nitrogen 13 mg/dL (8-26) Creatinine 0.9 mg/dL (0.7-1.3) Estimated GFR (Cockcroft-Gault) 102.5 Glucose Level 130 mg/dL (70-99) Calcium Level 9.3 mg/dL (8.5-10.1) Magnesium Level 2.2 mg/dL (1.8-2.4) Glucose (Fingerstick) 141 mg/dL (70-99) 136 mg/dL (70-99) Test 06/18/17 18:44 06/18/17 18:45 06/18/17 19:29 06/18/17 19:48 Glucose (Fingerstick) 132 mg/dL (70-99) 137 mg/dL (70-99) Hemoglobin 11.8 g/dL (13.0-17.5) Hematocrit 34.5 % (39.0-53.0) Mean Corpuscular Hemoglobin Concent 34 g/dL (31-37) Sodium Level 140 mmol/L (136-145) Potassium Level 4.7 mmol/L (3.5-5.1) Chloride Level 108 mmol/L (98-107) Carbon Dioxide Level 25 mmol/L (21-32) Anion Gap 7 (6-14) Blood Urea Nitrogen 11 mg/dL (8-26) Creatinine 1.1 mg/dL (0.7-1.3) Estimated GFR (Cockcroft-Gault) 81.3 Glucose Level 133 mg/dL (70-99) Calcium Level 9.1 mg/dL (8.5-10.1) Magnesium Level 2.1 mg/dL (1.8-2.4) O2 Saturation 98 % (92-99) Arterial Blood pH 7.35 (7.35-7.45) Arterial Blood pCO2 at Patient Temp 40 mmHg (35-46) Arterial Blood pO2 at Patient Temp 145 mmHg (65-108) Arterial Blood HCO3 22 mmol/L (21-28) Arterial Blood Base Excess -4 mmol/L (-3-3) FiO2 40 Test 06/18/17 20:51 06/18/17 22:02 06/18/17 23:05 06/19/17 00:40 Glucose (Fingerstick) 126 mg/dL (70-99) 141 mg/dL (70-99) 136 mg/dL (70-99) 135 mg/dL (70-99) Test 06/19/17 04:16 06/19/17 06:00 06/19/17 06:19 06/19/17 07:50 Glucose (Fingerstick) 127 mg/dL (70-99) 126 mg/dL (70-99) 131 mg/dL (70-99) White Blood Count 11.8 x10^3/uL (4.0-11.0) Red Blood Count 3.96 x10^6/uL (4.30-5.70) Hemoglobin 13.0 g/dL (13.0-17.5) Hematocrit 38.0 % (39.0-53.0) Mean Corpuscular Volume 96 fL (79-100) Mean Corpuscular Hemoglobin 33 pg (25-35) Mean Corpuscular Hemoglobin Concent 34 g/dL (31-37) Red Cell Distribution Width 12.3 % (11.5-14.5) Platelet Count 184 x10^3/uL (140-400) Neutrophils (%) (Auto) 77 % (31-73) Lymphocytes (%) (Auto) 5 % (24-48) Monocytes (%) (Auto) 18 % (0-9) Eosinophils (%) (Auto) 0 % (0-3) Basophils (%) (Auto) 0 % (0-3) Neutrophils # (Auto) 9.0 x10^3uL (1.8-7.7) Lymphocytes # (Auto) 0.6 x10^3/uL (1.0-4.8) Monocytes # (Auto) 2.1 x10^3/uL (0.0-1.1) Eosinophils # (Auto) 0.0 x10^3/uL (0.0-0.7) Basophils # (Auto) 0.0 x10^3/uL (0.0-0.2) Sodium Level 138 mmol/L (136-145) Potassium Level 4.6 mmol/L (3.5-5.1) Chloride Level 105 mmol/L (98-107) Carbon Dioxide Level 24 mmol/L (21-32) Anion Gap 9 (6-14) Blood Urea Nitrogen 10 mg/dL (8-26) Creatinine 0.9 mg/dL (0.7-1.3) Estimated GFR (Cockcroft-Gault) 102.5 Glucose Level 133 mg/dL (70-99) Calcium Level 9.4 mg/dL (8.5-10.1) Magnesium Level 2.0 mg/dL (1.8-2.4) Test 06/19/17 09:59 06/19/17 12:03 Glucose (Fingerstick) 132 mg/dL (70-99) 127 mg/dL (70-99) Medications Current Medications Ondansetron HCl (Zofran) 4 mg PRN Q8HRS PRN IV NAUSEA/VOMITING; Start 06/08/17 at 16:45; Stop 06/09/17 at 14:42; Status DC Morphine Sulfate 2 mg PRN Q2HR PRN IV PAIN; Start 06/08/17 at 16:45; Stop 06/09 at 14:42; Status DC Acetaminophen (Tylenol) 650 mg PRN Q6HRS PRN PO FEVER; Start 06/08/17 at 17:45 ; Stop 06/18/17 at 14:09; Status DC Ondansetron HCl (Zofran) 4 mg PRN Q6HRS PRN IV NAUSEA/VOMITING; Start 06/08/17 at 17:45; Stop 06/18/17 at 14:11; Status DC Morphine Sulfate 2 mg PRN Q2HR PRN IV PAIN; Start 06/08/17 at 17:45; Stop 06/18 at 14:11; Status DC Tramadol HCl (Ultram) 50 mg PRN Q6HRS PRN PO PAIN MILD TO MOD; Start 06/08/17 at 17:45 Hydralazine HCl (Apresoline) 10 mg PRN Q4HRS PRN IVP ELEVATED BP, SEE COMMENTS ; Start 06/08/17 at 17:45 Docusate Sodium (Colace) 100 mg PRN DAILY PRN PO CONSTIPATION; Start 06/08/17 at 17:45 Albuterol Sulfate (Ventolin Neb Soln) 2.5 mg PRN Q4HRS PRN NEB SHORTNESS OF BREATH; Start 06/08/17 at 17:45; Stop 06/18/17 at 14:10; Status DC Enoxaparin Sodium (Lovenox 40mg Syringe) 40 mg Q24H SQ Last administered on 19:41; Start 06/08/17 at 18:00; Stop 06/14/17 at 14:20; Status DC Folic Acid (Folic Acid) 1 mg DAILY PO Last administered on 06/19/17 10:11; Start 06/08/17 at 18:00 Thiamine Mononitrate (Vitamin B-1) 100 mg DAILY PO Last administered on 10:11; Start 06/08/17 at 18:00 Lorazepam (Ativan) 2 mg PRN Q4HRS PRN IV ANXIETY / AGITATION Last administered on 06/09/17 00:49; Start 06/08/17 at 17:45 Lisinopril (Prinivil) 40 mg DAILY PO ; Start 06/08/17 at 18:00; Stop 06/08/17 at 18:45; Status DC Lisinopril (Prinivil) 20 mg DAILY PO ; Start 06/09/17 at 09:00; Stop 06/11/17 at 17:13; Status DC Zolpidem Tartrate (Ambien) 5 mg PRN QHS PRN PO INSOMNIA Last administered on 23:33; Start 06/08/17 at 20:45 Vitamin B Complex (Folbic Tablet) 1 tab DAILY PO Last administered on 10:09; Start 06/09/17 at 10:30 Cyanocobalamin (Vitamin B-12) 1,000 mcg 1X ONCE IM Last administered on 13:46; Start 06/09/17 at 10:45; Stop 06/09/17 at 10:46; Status DC Regadenoson (Lexiscan) 0.4 mg 1X ONCE IV ; Start 06/10/17 at 08:45; Stop at 08:46; Status DC Regadenoson (Lexiscan) 0.4 mg STK-MED ONCE IV ; Start 06/10/17 at 09:24; Stop at 09:25; Status DC Regadenoson (Lexiscan) 0.4 mg STK-MED ONCE IV ; Start 06/10/17 at 09:24; Stop at 10:04; Status DC Iohexol (Omnipaque 300 Mg/ml) 100 ml STK-MED ONCE .ROUTE ; Start 06/11/17 at 12: 54; Stop 06/11/17 at 12:55; Status DC Lidocaine HCl 20 ml STK-MED ONCE .ROUTE ; Start 06/11/17 at 12:55; Stop at 12:56; Status DC Heparin Sodium/ Sodium Chloride 500 ml @ As Directed STK-MED ONCE .ROUTE ; Start 06/11/17 at 12:55; Stop 06/11/17 at 12:56; Status DC Midazolam HCl (Versed) 2 mg STK-MED ONCE .ROUTE ; Start 06/11/17 at 13:23; Stop 06/11/17 at 13:24; Status DC Fentanyl Citrate (Fentanyl 2ml Vial) 100 mcg STK-MED ONCE .ROUTE ; Start at 13:23; Stop 06/11/17 at 13:24; Status DC Heparin Sodium/ Sodium Chloride 1,000 unit 1X ONCE IART Last administered on 13:52; Start 06/11/17 at 13:45; Stop 06/11/17 at 13:46; Status DC Midazolam HCl (Versed) 2 mg 1X ONCE IV Last administered on 06/11/17 13:52; Start 06/11/17 at 13:45; Stop 06/11/17 at 13:46; Status DC Fentanyl Citrate (Fentanyl 2ml Vial) 100 mcg 1X ONCE IV Last administered on 13:52; Start 06/11/17 at 13:45; Stop 06/11/17 at 13:46; Status DC Iohexol (Omnipaque 300 Mg/ml) 100 ml 1X ONCE IART Last administered on 13:51; Start 06/11/17 at 13:45; Stop 06/11/17 at 13:46; Status DC Lidocaine HCl 20 ml 1X ONCE IJ Last administered on 06/11/17 13:51; Start at 13:45; Stop 06/11/17 at 13:46; Status DC Metoprolol Tartrate (Lopressor) 25 mg BID PO Last administered on 06/17/17 22: 09; Start 06/11/17 at 21:00; Stop 06/18/17 at 14:10; Status DC Iohexol (Omnipaque 300 Mg/ml) 75 ml 1X ONCE IV Last administered on 06/12/17 08:12; Start 06/12/17 at 08:30; Stop 06/12/17 at 08:31; Status DC Info (Do NOT chart on this entry -- for MONITORING) 1 each PRN DAILY PRN MC SEE COMMENTS; Start 06/12/17 at 08:15; Stop 06/14/17 at 08:14; Status DC Lidocaine HCl (Xylocaine 2% Topical 5gm Tube) 1 grant 1X ONCE TP ; Start at 14:00; Stop 06/12/17 at 14:01; Status DC Lidocaine HCl (Viscous Lidocaine) 15 ml 1X ONCE MM ; Start 06/12/17 at 14:00; Stop 06/12/17 at 14:01; Status Cancel Benzocaine (Hurricaine One) 3 spray 1X ONCE MM ; Start 06/12/17 at 14:00; Stop 06/12/17 at 14:01; Status DC Lidocaine HCl (Viscous Lidocaine) 15 ml 1X PRN PRN MM FOR REBEKAH Last administered on 06/14/17 13:14; Start 06/14/17 at 09:00; Stop 06/14/17 at 18:00 ; Status DC Benzocaine (Hurricaine One) 3 spray 1X ONCE MM Last administered on 06/14/17 13:14; Start 06/14/17 at 07:00; Stop 06/14/17 at 07:01; Status DC Lidocaine HCl (Xylocaine 2% Topical 5gm Tube) 1 grant 1X ONCE TP Last administered on 06/14/17 13:17; Start 06/14/17 at 07:00; Stop 06/14/17 at 07:01 ; Status DC Lidocaine HCl (Xylocaine 2% Topical 30gm Tube) 30 grant STK-MED ONCE TP ; Start at 10:57; Stop 06/14/17 at 10:58; Status DC Ondansetron HCl (Zofran) 4 mg PRN Q6HRS PRN IV NAUSEA/VOMITING; Start 06/14/17 at 11:45; Stop 06/15/17 at 11:44; Status DC Fentanyl Citrate (Fentanyl 2ml Vial) 25 mcg PRN Q5MIN PRN IV MILD PAIN; Start 06/14/17 at 11:45; Stop 06/15/17 at 11:44; Status DC Fentanyl Citrate (Fentanyl 2ml Vial) 50 mcg PRN Q5MIN PRN IV MODERATE PAIN; Start 06/14/17 at 11:45; Stop 06/15/17 at 11:44; Status DC Morphine Sulfate 1 mg PRN Q10MIN PRN IV SEVERE PAIN; Start 06/14/17 at 11:45; Stop 06/15/17 at 11:44; Status DC Ringer's Solution 1,000 ml @ 30 mls/hr Q24H IV Last administered on 06/14/17t 11:31; Start 06/14/17 at 11:31; Stop 06/14/17 at 23:30; Status DC Lidocaine HCl (Xylocaine-Mpf 1% Vial) 2 ml 1X PRN PRN ID IV START; Start at 11:45; Stop 06/15/17 at 11:44; Status DC Hydromorphone HCl (Dilaudid) 0.5 mg PRN Q10MIN PRN IV SEV PAIN, Second choice; Start 06/14/17 at 11:45; Stop 06/15/17 at 11:44; Status DC Prochlorperazine Edisylate (Compazine) 5 mg PACU PRN PRN IV NAUSEA, MRX1; Start 06/14/17 at 11:45; Stop 06/15/17 at 11:44; Status DC Propofol 20 ml @ As Directed STK-MED ONCE IV ; Start 06/14/17 at 13:32; Stop at 13:33; Status DC Ondansetron HCl (Zofran) 4 mg PRN Q6HRS PRN IV NAUSEA/VOMITING; Start 06/15/17 at 07:00; Stop 06/16/17 at 06:59; Status DC Fentanyl Citrate (Fentanyl 2ml Vial) 25 mcg PRN Q5MIN PRN IV MILD PAIN; Start 06/15/17 at 07:00; Stop 06/16/17 at 06:59; Status DC Fentanyl Citrate (Fentanyl 2ml Vial) 50 mcg PRN Q5MIN PRN IV MODERATE PAIN; Start 06/15/17 at 07:00; Stop 06/16/17 at 06:59; Status DC Morphine Sulfate 1 mg PRN Q10MIN PRN IV SEVERE PAIN; Start 06/15/17 at 07:00; Stop 06/16/17 at 06:59; Status DC Ringer's Solution 1,000 ml @ 30 mls/hr Q24H IV ; Start 06/15/17 at 07:00; Stop 06/15/17 at 18:59; Status DC Lidocaine HCl (Xylocaine-Mpf 1% Vial) 2 ml PRN 1X PRN ID IV START; Start at 07:00; Stop 06/16/17 at 06:59; Status DC Hydromorphone HCl (Dilaudid) 0.5 mg PRN Q10MIN PRN IV SEV PAIN, Second choice; Start 06/15/17 at 07:00; Stop 06/16/17 at 06:59; Status DC Prochlorperazine Edisylate (Compazine) 5 mg PACU PRN PRN IV NAUSEA, MRX1; Start 06/15/17 at 07:00; Stop 06/16/17 at 06:59; Status DC Potassium Chloride 70 meq/ Sodium Bicarbonate 12.5 meq/Lidocaine HCl 24 ml/ Parenteral Electrolytes 571.5 ml @ 571.5 mls/ hr 1X PERIOP ONCE IRR ; Start at 06:00; Stop 06/15/17 at 06:59; Status DC Potassium Chloride 15 meq/ Sodium Bicarbonate 12.5 meq/Parenteral Electrolytes 520 ml @ 520 mls/hr 1X PERIOP ONCE IRR ; Start 06/15/17 at 06:00; Stop at 06:59; Status DC Heparin Sodium (Porcine) 91169 unit/Ringer's Solution 1,020 ml @ 1,020 mls/hr 1X PERIOP ONCE IRR ; Start 06/15/17 at 06:00; Stop 06/15/17 at 06:59; Status DC Etomidate (Amidate) 20 mg STK-MED ONCE IV ; Start 06/15/17 at 06:14; Stop at 06:15; Status DC Lidocaine HCl (Lidocaine Pf 2% Vial) 5 ml STK-MED ONCE .ROUTE ; Start 06/15/17 at 06:14; Stop 06/15/17 at 06:15; Status DC Ephedrine Sulfate 50 mg STK-MED ONCE IV ; Start 06/15/17 at 06:14; Stop at 06:15; Status DC Phenylephrine HCl (Arthur-Synephrine Inj) 10 mg STK-MED ONCE .ROUTE ; Start at 06:15; Stop 06/15/17 at 06:16; Status DC Rocuronium [place] (Zemuron) 100 mg STK-MED ONCE .ROUTE ; Start 06/15/17 at 06: 15; Stop 06/15/17 at 06:16; Status DC Heparin Sodium (Porcine) 30,000 unit STK-MED ONCE .ROUTE ; Start 06/15/17 at 06: 15; Stop 06/15/17 at 06:16; Status DC Aminocaproic Acid (Amicar) 5,000 mg STK-MED ONCE IV ; Start 06/15/17 at 06:15; Stop 06/15/17 at 06:16; Status DC Nitroglycerin/ Dextrose 250 ml @ As Directed STK-MED ONCE IV ; Start 06/15/17 at 06:15; Stop 06/15/17 at 06:16; Status DC Sufentanil Citrate (Sufenta) 100 mcg STK-MED ONCE .ROUTE ; Start 06/15/17 at 06: 17; Stop 06/15/17 at 06:18; Status DC Midazolam HCl (Versed) 2 mg STK-MED ONCE .ROUTE ; Start 06/15/17 at 06:20; Stop 06/15/17 at 06:21; Status DC Cefazolin Sodium/ Dextrose 50 ml @ 100 mls/hr 1X PREOP ONCE IV ; Start at 07:45; Stop 06/15/17 at 08:14; Status DC Cefazolin Sodium 1 gm/Sodium Chloride 500 ml @ 500 mls/hr 1X PERIOP ONCE IRR Last administered on 06/18/17 08:59; Start 06/18/17 at 06:00; Stop 06/18/17 at 06:59; Status DC Potassium Chloride 70 meq/ Sodium Bicarbonate 12.5 meq/Lidocaine HCl 24 ml/ Parenteral Electrolytes 571.5 ml @ 571.5 mls/ hr 1X PERIOP ONCE IRR Last administered on 06/18/17 10:45; Start 06/18/17 at 06:00; Stop 06/18/17 at 06:59 ; Status DC Potassium Chloride 15 meq/ Sodium Bicarbonate 12.5 meq/Parenteral Electrolytes 520 ml @ 520 mls/hr 1X PERIOP ONCE IRR Last administered on 06/18/17 10:45; Start 06/18/17 at 06:00; Stop 06/18/17 at 06:59; Status DC Heparin Sodium (Porcine) 45175 unit/Ringer's Solution 1,020 ml @ 1,020 mls/hr 1X PERIOP ONCE IRR Last administered on 06/18/17 08:59; Start 06/18/17 at 06: 00; Stop 06/18/17 at 06:59; Status DC Ondansetron HCl (Zofran) 4 mg PRN Q6HRS PRN IV NAUSEA/VOMITING; Start 06/18/17 at 07:00; Stop 06/18/17 at 14:11; Status DC Fentanyl Citrate (Fentanyl 2ml Vial) 25 mcg PRN Q5MIN PRN IV MILD PAIN; Start 06/18/17 at 07:00; Stop 06/18/17 at 14:12; Status DC Fentanyl Citrate (Fentanyl 2ml Vial) 50 mcg PRN Q5MIN PRN IV MODERATE PAIN; Start 06/18/17 at 07:00; Stop 06/18/17 at 14:12; Status DC Morphine Sulfate 1 mg PRN Q10MIN PRN IV SEVERE PAIN; Start 06/18/17 at 07:00; Stop 06/18/17 at 14:11; Status DC Ringer's Solution 1,000 ml @ 30 mls/hr Q24H IV ; Start 06/18/17 at 07:00; Stop 06/18/17 at 14:12; Status DC Lidocaine HCl (Xylocaine-Mpf 1% Vial) 2 ml PRN 1X PRN ID IV START; Start at 07:00; Stop 06/18/17 at 14:12; Status DC Hydromorphone HCl (Dilaudid) 0.5 mg PRN Q10MIN PRN IV SEV PAIN, Second choice; Start 06/18/17 at 07:00; Stop 06/18/17 at 14:13; Status DC Prochlorperazine Edisylate (Compazine) 5 mg PACU PRN PRN IV NAUSEA, MRX1; Start 06/18/17 at 07:00; Stop 06/18/17 at 14:13; Status DC Cefazolin Sodium/ Dextrose 50 ml @ As Directed STK-MED ONCE IV ; Start 06/18/17 at 06:27; Stop 06/18/17 at 06:28; Status DC Vancomycin HCl (Vanco) 10 gm STK-MED ONCE .ROUTE Last administered on 08:59; Start 06/18/17 at 06:24; Stop 06/18/17 at 07:24; Status DC Cellulose 1 each STK-MED ONCE .ROUTE Last administered on 06/18/17 08:59; Start 06/18/17 at 06:24; Stop 06/18/17 at 07:24; Status DC Papaverine HCl 60 mg STK-MED ONCE .ROUTE Last administered on 06/18/17 08:59; Start 06/18/17 at 06:24; Stop 06/18/17 at 07:24; Status DC Aspirin (Aspirin) 300 mg STK-MED ONCE .ROUTE Last administered on 06/18/17 13: 21; Start 06/18/17 at 06:24; Stop 06/18/17 at 07:24; Status DC Sodium Chloride (Sodium Chloride) 50 ml STK-MED ONCE IJ Last administered on 08:59; Start 06/18/17 at 06:24; Stop 06/18/17 at 07:24; Status DC Cefazolin Sodium/ Dextrose 50 ml @ 100 mls/hr 1X ONCE IV Last administered on 06/18/17 12:33; Start 06/18/17 at 11:30; Stop 06/18/17 at 11:59; Status DC Sodium Chloride (Normal Saline Flush) 3 ml PRN Q12HR PRN IV AFTER MEDS AND BLOOD DRAWS; Start 06/18/17 at 13:30 Ringer's Solution 1,000 ml @ 30 mls/hr Q24H IV Last administered on 06/18/17 14:29; Start 06/18/17 at 13:22; Stop 06/19/17 at 12:48; Status DC Albumin Human 250 ml @ 60 mls/hr PRN Q4HRS PRN IV SEE I/O RECORD Last administered on 06/18/17 18:07; Start 06/18/17 at 13:30; Stop 06/19/17 at 12:48 ; Status DC Insulin Human Regular 150 unit/ Sodium Chloride 151.5 ml @ 0 mls/hr CONT PRN PRN IV SEE I/O RECORD Last administered on 06/18/17 16:34; Start 06/18/17 at 13 :30; Stop 06/19/17 at 12:48; Status DC Dextrose (Dextrose 50%-Water Syringe) 25 gm PRN Q15MIN PRN IV LOW BLOOD SUGAR; Start 06/18/17 at 13:30 Amiodarone HCl 150 mg/Dextrose 103 ml @ 200 mls/hr STAT IV Last administered on 06/18/17 14:47; Start 06/18/17 at 13:30; Stop 06/19/17 at 12:48; Status DC Amiodarone HCl 900 mg/Dextrose 518 ml @ 33.33 mls/ hr STAT IV Last administered on 06/18/17 14:47; Start 06/18/17 at 13:30; Stop 06/19/17 at 12:45 ; Status DC Amiodarone HCl (Cordarone) 400 mg BID PO ; Start 06/19/17 at 21:00; Stop at 21:00; Status DC Info 1 ea CONT PRN PRN MC SEE COMMENTS; Start 06/18/17 at 13:30 Info 1 ea CONT PRN PRN MC SEE COMMENTS; Start 06/18/17 at 13:30; Stop 06/19/17 at 12:48; Status DC Magnesium Sulfate/ Dextrose 100 ml @ 100 mls/hr PRN DAILY PRN IV FOR MAG < 2.2 Last administered on 06/19/17 10:36; Start 06/18/17 at 13:30 Famotidine (Pepcid) 20 mg BID IVP Last administered on 06/18/17 20:41; Start 06/18/17 at 21:00; Stop 06/19/17 at 10:02; Status DC Ondansetron HCl (Zofran) 4 mg PRN Q4HRS PRN IV NAUSEA/VOMITING; Start 06/18/17 at 13:30 Morphine Sulfate 2 mg PRN Q1HR PRN IV PAIN Last administered on 06/19/17 02:09 ; Start 06/18/17 at 13:30 Acetaminophen (Tylenol) 650 mg PRN Q4HRS PRN PO MILD PAIN / TEMP; Start at 13:30 Meperidine HCl (Demerol) 12.5 mg PRN Q15MIN PRN IV SHIVERING Last administered on 06/18/17 14:28; Start 06/18/17 at 13:30; Stop 06/19/17 at 13:22; Status DC Senna/Docusate Sodium (Senna Plus) 1 tab BID PO Last administered on 06/19/17 10:08; Start 06/18/17 at 21:00 Bisacodyl (Dulcolax Supp) 10 mg PRN DAILY PRN MT NO BOWEL MOVEMENT; Start 06/18 at 13:30 Aspirin (Ecotrin) 325 mg DAILYWBKFT PO Last administered on 06/19/17 10:11; Start 06/19/17 at 08:00 Aspirin (Aspirin) 300 mg PRN DAILY PRN MT IF UNABLE TO TAKE PO; Start 06/18/17 at 13:30 Albuterol Sulfate (Ventolin Neb Soln) 2.5 mg PRN Q4HRS PRN NEB SHORTNESS OF BREATH; Start 06/18/17 at 13:30 Metoprolol Tartrate (Lopressor) 25 mg BID PO Last administered on 06/19/17 10: 11; Start 06/19/17 at 09:00 Nicardipine HCl 50 mg/Sodium Chloride 270 ml @ 0 mls/hr CONT PRN PRN IV PER PROTOCOL; Start 06/18/17 at 13:30; Stop 06/19/17 at 12:48; Status DC Oxycodone/ Acetaminophen (Percocet 5/325) 1 tab PRN Q4HRS PRN PO MILD PAIN Last administered on 06/19/17 05:28; Start 06/18/17 at 13:30 Oxycodone/ Acetaminophen (Percocet 5/325) 2 tab PRN Q4HRS PRN PO MODERATE PAIN , SEVERE PAIN Last administered on 06/19/17 08:00; Start 06/18/17 at 13:30 Cefazolin Sodium 1 gm/Sodium Chloride 50 ml @ 100 mls/hr Q8H IV Last administered on 06/19/17 12:06; Start 06/18/17 at 20:00; Stop 06/20/17 at 04:29 Clevidipine 100 ml @ 0 mls/hr CONT PRN IV PER PROTOCOL Last administered on 14:28; Start 06/18/17 at 14:15; Stop 06/19/17 at 12:48; Status DC Propofol 100 ml @ 0 mls/hr CONT PRN IV SEE I/O RECORD Last administered on 06/18 14:47; Start 06/18/17 at 14:30; Stop 06/19/17 at 12:48; Status DC Potassium Chloride 50 ml @ 50 mls/hr Q1H IV Last administered on 06/18/17 17: 42; Start 06/18/17 at 16:15; Stop 06/18/17 at 18:14; Status DC Famotidine (Pepcid) 20 mg BID PO Last administered on 06/19/17 10:37; Start at 10:30 Amiodarone HCl (Cordarone) 200 mg BID PO ; Start 06/19/17 at 13:00 Active Scripts Active Reported [none] Vitals/I & O Vital Sign - Last 24 Hours 06/18/17 06/18/17 06/18/17 06/18/17 14:35 14:47 14:50 15:00 Temp 97.8 97.8 97.8 97.8 Pulse 73 70 70 Resp 14 14 14 B/P (MAP) 146/71 (96) 128/58 139/61 (87) Pulse Ox 100 100 100 O2 Delivery Ventilator Ventilator Ventilator 06/18/17 06/18/17 06/18/17 06/18/17 15:00 15:18 15:27 16:00 Temp 98.0 98.0 99.2 98.0 98.0 99.2 Pulse 69 69 84 Resp 14 19 14 22 B/P (MAP) 130/64 (86) 100/52 (68) 155/74 (101) Pulse Ox 100 100 100 100 O2 Delivery Ventilator Ventilator Ventilator Ventilator 06/18/17 06/18/17 06/18/17 06/18/17 16:00 16:00 16:30 16:44 Temp 99.6 99.6 Pulse 78 Resp 14 32 B/P (MAP) 145/73 (97) Pulse Ox 100 100 100 O2 Delivery Mechanical Ventilator Ventilator Ventilator Ventilator 06/18/17 06/18/17 06/18/17 06/18/17 17:30 18:12 18:34 19:00 Temp 100.4 100.5 100.7 100.4 100.5 100.7 Pulse 77 77 86 Resp 14 25 18 B/P (MAP) 112/59 (76) 110/59 (76) 125/64 (84) Pulse Ox 100 100 100 100 O2 Delivery Ventilator Ventilator cpap trial Ventilator 06/18/17 06/18/17 06/18/17 06/18/17 19:46 20:00 20:00 21:00 Temp 101.0 100.9 101.0 100.9 Pulse 92 87 Resp 23 20 B/P (MAP) 140/67 (91) 117/55 (75) Pulse Ox 98 100 100 O2 Delivery Ventilator Nasal Cannula Nasal Cannula Nasal Cannula O2 Flow Rate 4.0 2.0 2.0 06/18/17 06/18/17 06/19/17 06/19/17 22:00 23:00 00:00 00:00 Temp 100.8 100.5 100.3 100.8 100.5 100.3 Pulse 87 86 88 Resp 24 24 22 B/P (MAP) 102/75 (84) 129/66 (87) 138/68 (91) Pulse Ox 100 100 100 O2 Delivery Nasal Cannula Nasal Cannula Nasal Cannula Nasal Cannula O2 Flow Rate 4.0 4.0 4.0 4.0 06/19/17 06/19/17 06/19/17 06/19/17 01:00 02:00 02:09 02:46 Temp 100.4 100.6 100.4 100.6 Pulse 86 87 Resp 33 25 26 B/P (MAP) 130/62 (84) 128/64 (85) Pulse Ox 100 100 100 100 O2 Delivery Nasal Cannula Nasal Cannula Nasal Cannula Nasal Cannula O2 Flow Rate 4.0 4.0 4.0 4.0 06/19/17 06/19/17 06/19/17 06/19/17 02:47 03:00 03:47 04:00 Temp 100.3 100.1 100.3 100.1 Pulse 87 84 Resp 30 B/P (MAP) 127/61 (83) 122/60 (80) Pulse Ox 100 100 100 100 O2 Delivery Nasal Cannula Nasal Cannula Nasal Cannula Nasal Cannula O2 Flow Rate 4.0 4.0 4.0 4.0 06/19/17 06/19/17 06/19/17 06/19/17 04:00 05:00 05:28 06:00 Temp 100.3 100.2 100.3 100.2 Pulse 85 86 Resp 30 20 22 B/P (MAP) 135/67 (89) 131/62 (85) Pulse Ox 100 100 100 O2 Delivery Nasal Cannula Nasal Cannula Nasal Cannula Nasal Cannula O2 Flow Rate 4.0 4.0 4.0 4.0 06/19/17 06/19/17 06/19/17 06/19/17 07:00 08:00 08:13 08:30 Temp 100.2 100.2 Pulse 83 81 Resp 26 26 B/P (MAP) 138/64 (88) 120/73 (89) Pulse Ox 100 100 O2 Delivery Nasal Cannula Nasal Cannula Nasal Cannula O2 Flow Rate 2.0 2.0 06/19/17 06/19/17 06/19/17 06/19/17 09:00 10:00 10:11 11:53 Temp 97.9 97.9 Pulse 84 82 122 72 Resp 23 21 23 B/P (MAP) 119/70 (86) 122/75 (91) 75/84 109/73 (85) Pulse Ox 99 99 100 O2 Delivery Nasal Cannula Nasal Cannula O2 Flow Rate 2.0 2.0 2.0 Intake and Output 06/19/17 06/19/17 06/20/17 15:00 23:00 07:00 Intake Total 414 ml Output Total 79 ml Balance 335 ml RICH JEREZ MD Jun 19, 2017 14:30
[2017-06-19] MEDS ORDERED: AMIODARONE HCL 200 MG TABLET. PO SCH (21:00)
[2017-06-19] MEDS: ZOLPIDEM 5 MG TABLET. PO PRN (22:22)
[2017-06-20] MEDS: oxyCODONE/APAP 5/325 1 TAB TABLET PO PRN ×2 (01:11→02:15)
[2017-06-20 03:55] VITALS: BP 133/76
[2017-06-20 06:31] LABS: BASO % 0 % (0-3); EOS % 0 % (0-3); HEMATOCRIT 37.5 % (39.0-53.0); LYMPH # 0.8 x10^3/uL (1.0-4.8); LYMPH % 6 % (24-48); MEAN CORPUSCULAR HEMOGLOBIN 33 pg (25-35); MEAN CORPUSCULAR HGB CONC 35 g/dL (31-37); MEAN CORPUSCULAR VOLUME 96 fL (79-100); MONO % 14 % (0-9); NEUT % 80 % (31-73); PLATELET COUNT 162 x10^3/uL (140-400); RED BLOOD COUNT 3.91 x10^6/uL (4.30-5.70); RED CELL DISTRIBUTION WIDTH 12.6 % (11.5-14.5); WHITE BLOOD COUNT 13.9 x10^3/uL (4.0-11.0)
[2017-06-20 06:52] LABS: ALBUMIN 3.5 g/dL (3.4-5.0); CALCIUM 9.3 mg/dL (8.5-10.1); CREATININE 0.9 mg/dL (0.7-1.3); GFR 102.5; PHOSPHORUS 2.9 mg/dL (2.6-4.7); POTASSIUM 4.2 mmol/L (3.5-5.1)
[2017-06-20 07:00] VITALS: BP 109/63
[2017-06-20 07:32] LABS: PLT ESTIMATE ADEQUATE (ADEQUATE)
[2017-06-20] MEDS: VITAMIN B12,B9,B6 COMPLEX 1 TABLET. PO SCH (09:33)
[2017-06-20] MEDS: THIAMINE 100 MG TABLET. PO SCH (09:33)
[2017-06-20] MEDS: FAMOTIDINE 20 MG TABLET. PO SCH ×2 (09:34→20:21)
[2017-06-20] MEDS: ASPIRIN ENTERIC COATED 325 MG TABLET.DR. PO SCH (09:34)
[2017-06-20] MEDS: SENNOSIDES/DOCUSATE 8.6/50MG TABLET. PO SCH ×2 (09:34→20:21)
[2017-06-20] MEDS: AMIODARONE HCL 200 MG TABLET. PO SCH ×2 (09:37→20:20)
[2017-06-20] MEDS: FOLIC ACID 1 MG TABLET. PO SCH (09:39)
[2017-06-20] MEDS: METOPROLOL TART IMMED RELEASE 25 MG TABLET. PO SCH ×2 (09:39→20:21)
--- NOTE | 2017-06-20 09:43 | RAD ---
Portable AP chest. History: Post coronary bypass AP view was taken of the chest. [place] catheter is been removed. There is still a mediastinal tube or left chest tube. There is linear atelectasis in the left upper lobe. There is a left pleural effusion with left basilar atelectasis with little change. There is no pneumothorax. Impression: 1. [place] catheter and one of the mediastinal tubes have been removed. 2. Little other change. 3. Persistent left base atelectasis with probable left effusion.
[2017-06-20 11:00] VITALS: BP 102/63
--- NOTE | 2017-06-20 11:50 | PDOC ---
PROGRESS NOTES Chief Complaint Chief Complaint s.p CABG POD # 2 (06/18/17) Aneurysm, Cardiac by REBEKAH exertional dyspnea with CHF likely chest pain with dyspnea chronic combined systolic and diastolic CHF,, est EF 40% on MPI H/O CAD 2013 with 1 stent at obtuse marginal branch HTN poor control, noncompliant with emds alcohol abuse d/o, prior tobaccoism leg weakness, unsteady gait and peripheral neuropathy History of Present Illness History of Present Illness Seen post CABG # 2 Looks good [place], cordis and mediastinal tubes out PLaying with his phone LAbs look good Off low dose insulin gtt PLAN: CPM LAbs richi PT/OT Follow TCVS recs LOoks good Target dc Wednesday Vitals Vitals Vital Signs Date Time Temp Pulse Resp B/P (MAP) Pulse Ox O2 Delivery O2 Flow Rate FiO2 06/20/17 11:00 97.8 82 20 102/63 (76) 99 Nasal Cannula 2.0 97.8 Physical Exam Physical Exam GENERAL: NAD, Alert HEENT: PERRL, OC/OP NECK: Supple, no JVD, no LN LUNGS: Clear HEART: S1S2, no gallop, no murmur ABD: Soft, NT, no organomegaly, no rebound EXT: No edema, no cyanosis [employer]: Alert, oriented x 3, no focal neurologic deficit SKIN: No rash IV: ok General: Alert, Oriented X3, No acute distress Heart: Regular rate, Normal S1, Normal S2 Lungs: Clear Abdomen: Soft, No tenderness Extremities: No edema Skin: No rashes, No significant lesion Labs LABS Laboratory Tests Test 06/19/17 12:03 06/20/17 05:55 Glucose (Fingerstick) 127 mg/dL (70-99) White Blood Count 13.9 x10^3/uL (4.0-11.0) Red Blood Count 3.91 x10^6/uL (4.30-5.70) Hemoglobin 13.0 g/dL (13.0-17.5) Hematocrit 37.5 % (39.0-53.0) Mean Corpuscular Volume 96 fL (79-100) Mean Corpuscular Hemoglobin 33 pg (25-35) Mean Corpuscular Hemoglobin Concent 35 g/dL (31-37) Red Cell Distribution Width 12.6 % (11.5-14.5) Platelet Count 162 x10^3/uL (140-400) Neutrophils (%) (Auto) 80 % (31-73) Lymphocytes (%) (Auto) 6 % (24-48) Monocytes (%) (Auto) 14 % (0-9) Eosinophils (%) (Auto) 0 % (0-3) Basophils (%) (Auto) 0 % (0-3) Neutrophils # (Auto) 11.1 x10^3uL (1.8-7.7) Lymphocytes # (Auto) 0.8 x10^3/uL (1.0-4.8) Monocytes # (Auto) 2.0 x10^3/uL (0.0-1.1) Eosinophils # (Auto) 0.0 x10^3/uL (0.0-0.7) Basophils # (Auto) 0.0 x10^3/uL (0.0-0.2) Segmented Neutrophils % 66 % (35-66) Band Neutrophils % 16 % (0-9) Lymphocytes % 11 % (24-48) Monocytes % 7 % (0-10) Platelet Estimate Adequate (ADEQUATE) Sodium Level 135 mmol/L (136-145) Potassium Level 4.2 mmol/L (3.5-5.1) Chloride Level 101 mmol/L (98-107) Carbon Dioxide Level 26 mmol/L (21-32) Anion Gap 8 (6-14) Blood Urea Nitrogen 9 mg/dL (8-26) Creatinine 0.9 mg/dL (0.7-1.3) Estimated GFR (Cockcroft-Gault) 102.5 Glucose Level 107 mg/dL (70-99) Calcium Level 9.3 mg/dL (8.5-10.1) Phosphorus Level 2.9 mg/dL (2.6-4.7) Albumin 3.5 g/dL (3.4-5.0) Review of Systems Review of Systems denies 14 pt reveiwed Assessment and Plan Assessmemt and Plan Problems Medical Problems: (1) Chest pain Status: Acute (2) Shortness of breath Status: Acute Problems: Comment Review of Relevant I have reviewed the following items chetan (where applicable) has been applied. Labs Laboratory Tests Test 06/18/17 11:57 06/18/17 12:00 06/18/17 12:20 06/18/17 12:23 Bedside Hemoglobin (Calculated) 9.5 g/dL (14-18) 9.5 g/dL (14-18) Bedside Hematocrit 28 % (37-52) 28 % (37-52) Bedside Arterial pH 7.39 (7.35-7.45) 7.38 (7.35-7.45) Bedside Arterial pCO2 42 mmHg (35-45) 39 mmHg (35-45) Bedside Arterial pO2 299 mmHg (75-100) 413 mmHg (75-100) Bedside Arterial HCO3 26 mmol/L (21-28) 24 mmol/L (21-28) Bedside Arterial Total CO2 27 mmol/L (21-32) 25 mmol/L (21-32) Arterial Bld O2 Saturation (Measur) 100 % (95-99) 100 % (95-99) Bedside Arterial Blood Base Excess 1 mmol/L (0-3) -2 mmol/L (0-3) Bedside FiO2 75.0 100.0 Bedside Sodium 137 mmol/L (135-145) 138 mmol/L (135-145) Bedside Potassium 4.2 mmol/L (3.5-5.0) 3.8 mmol/L (3.5-5.0) Glucose Level 127 mg/dL (70-99) 121 mg/dL (70-99) Bedside Ionized Calcium (Steff) 1.59 mmol/L (1.13-1.32) 1.58 mmol/L (1.13-1.32) Activated Clotting Time 421 SEC (90-125) 145 SEC (90-125) Test 06/18/17 13:06 06/18/17 13:15 06/18/17 13:53 06/18/17 14:35 Bedside Hemoglobin (Calculated) 11.2 g/dL (14-18) Bedside Hematocrit 33 % (37-52) Bedside Arterial pH 7.37 (7.35-7.45) Bedside Arterial pCO2 40 mmHg (35-45) Bedside Arterial pO2 420 mmHg (75-100) Bedside Arterial HCO3 23 mmol/L (21-28) Bedside Arterial Total CO2 24 mmol/L (21-32) Arterial Bld O2 Saturation (Measur) 100 % (95-99) Bedside Arterial Blood Base Excess -2 mmol/L (0-3) Bedside FiO2 100.0 Bedside Sodium 140 mmol/L (135-145) Bedside Potassium 3.4 mmol/L (3.5-5.0) Glucose Level 122 mg/dL (70-99) Bedside Ionized Calcium (Steff) 1.42 mmol/L (1.13-1.32) White Blood Count 11.7 x10^3/uL (4.0-11.0) Hemoglobin 11.3 g/dL (13.0-17.5) Hematocrit 33.6 % (39.0-53.0) Platelet Count 137 x10^3/uL (140-400) Prothrombin Time 17.8 SEC (11.7-14.0) Prothromb Time International Ratio 1.6 (0.8-1.1) Activated Partial Thromboplast Time 36 SEC (24-38) Fibrinogen 201 mg/dL (200-440) Glucose (Fingerstick) 119 mg/dL (70-99) O2 Saturation 100 % (92-99) Arterial Blood pH 7.40 (7.35-7.45) Arterial Blood pCO2 at Patient Temp 33 mmHg (35-46) Arterial Blood pO2 at Patient Temp 394 mmHg (65-108) Arterial Blood HCO3 20 mmol/L (21-28) Arterial Blood Base Excess -4 mmol/L (-3-3) Oxyhemoglobin 98.8 % Methemoglobin 0.4 % (0.0-1.9) Carbon Monoxide, Quantitative 0.3 % (0.0-1.9) FiO2 100 Test 06/18/17 14:45 06/18/17 16:05 06/18/17 17:35 06/18/17 18:44 White Blood Count 9.6 x10^3/uL (4.0-11.0) Red Blood Count 3.83 x10^6/uL (4.30-5.70) Hemoglobin 12.7 g/dL (13.0-17.5) Hematocrit 37.3 % (39.0-53.0) Mean Corpuscular Volume 97 fL (79-100) Mean Corpuscular Hemoglobin 33 pg (25-35) Mean Corpuscular Hemoglobin Concent 34 g/dL (31-37) Red Cell Distribution Width 12.6 % (11.5-14.5) Platelet Count 160 x10^3/uL (140-400) Prothrombin Time 16.5 SEC (11.7-14.0) Prothromb Time International Ratio 1.4 (0.8-1.1) Activated Partial Thromboplast Time 35 SEC (24-38) Sodium Level 140 mmol/L (136-145) Potassium Level 3.8 mmol/L (3.5-5.1) Chloride Level 107 mmol/L (98-107) Carbon Dioxide Level 24 mmol/L (21-32) Anion Gap 9 (6-14) Blood Urea Nitrogen 13 mg/dL (8-26) Creatinine 0.9 mg/dL (0.7-1.3) Estimated GFR (Cockcroft-Gault) 102.5 Glucose Level 130 mg/dL (70-99) Calcium Level 9.3 mg/dL (8.5-10.1) Magnesium Level 2.2 mg/dL (1.8-2.4) Glucose (Fingerstick) 141 mg/dL (70-99) 136 mg/dL (70-99) 132 mg/dL (70-99) Test 06/18/17 18:45 06/18/17 19:29 06/18/17 19:48 06/18/17 20:51 Hemoglobin 11.8 g/dL (13.0-17.5) Hematocrit 34.5 % (39.0-53.0) Mean Corpuscular Hemoglobin Concent 34 g/dL (31-37) Sodium Level 140 mmol/L (136-145) Potassium Level 4.7 mmol/L (3.5-5.1) Chloride Level 108 mmol/L (98-107) Carbon Dioxide Level 25 mmol/L (21-32) Anion Gap 7 (6-14) Blood Urea Nitrogen 11 mg/dL (8-26) Creatinine 1.1 mg/dL (0.7-1.3) Estimated GFR (Cockcroft-Gault) 81.3 Glucose Level 133 mg/dL (70-99) Calcium Level 9.1 mg/dL (8.5-10.1) Magnesium Level 2.1 mg/dL (1.8-2.4) O2 Saturation 98 % (92-99) Arterial Blood pH 7.35 (7.35-7.45) Arterial Blood pCO2 at Patient Temp 40 mmHg (35-46) Arterial Blood pO2 at Patient Temp 145 mmHg (65-108) Arterial Blood HCO3 22 mmol/L (21-28) Arterial Blood Base Excess -4 mmol/L (-3-3) FiO2 40 Glucose (Fingerstick) 137 mg/dL (70-99) 126 mg/dL (70-99) Test 06/18/17 22:02 06/18/17 23:05 06/19/17 00:40 06/19/17 04:16 Glucose (Fingerstick) 141 mg/dL (70-99) 136 mg/dL (70-99) 135 mg/dL (70-99) 127 mg/dL (70-99) Test 06/19/17 06:00 06/19/17 06:19 06/19/17 07:50 06/19/17 09:59 White Blood Count 11.8 x10^3/uL (4.0-11.0) Red Blood Count 3.96 x10^6/uL (4.30-5.70) Hemoglobin 13.0 g/dL (13.0-17.5) Hematocrit 38.0 % (39.0-53.0) Mean Corpuscular Volume 96 fL (79-100) Mean Corpuscular Hemoglobin 33 pg (25-35) Mean Corpuscular Hemoglobin Concent 34 g/dL (31-37) Red Cell Distribution Width 12.3 % (11.5-14.5) Platelet Count 184 x10^3/uL (140-400) Neutrophils (%) (Auto) 77 % (31-73) Lymphocytes (%) (Auto) 5 % (24-48) Monocytes (%) (Auto) 18 % (0-9) Eosinophils (%) (Auto) 0 % (0-3) Basophils (%) (Auto) 0 % (0-3) Neutrophils # (Auto) 9.0 x10^3uL (1.8-7.7) Lymphocytes # (Auto) 0.6 x10^3/uL (1.0-4.8) Monocytes # (Auto) 2.1 x10^3/uL (0.0-1.1) Eosinophils # (Auto) 0.0 x10^3/uL (0.0-0.7) Basophils # (Auto) 0.0 x10^3/uL (0.0-0.2) Sodium Level 138 mmol/L (136-145) Potassium Level 4.6 mmol/L (3.5-5.1) Chloride Level 105 mmol/L (98-107) Carbon Dioxide Level 24 mmol/L (21-32) Anion Gap 9 (6-14) Blood Urea Nitrogen 10 mg/dL (8-26) Creatinine 0.9 mg/dL (0.7-1.3) Estimated GFR (Cockcroft-Gault) 102.5 Glucose Level 133 mg/dL (70-99) Calcium Level 9.4 mg/dL (8.5-10.1) Magnesium Level 2.0 mg/dL (1.8-2.4) Glucose (Fingerstick) 126 mg/dL (70-99) 131 mg/dL (70-99) 132 mg/dL (70-99) Test 06/19/17 12:03 06/20/17 05:55 Glucose (Fingerstick) 127 mg/dL (70-99) White Blood Count 13.9 x10^3/uL (4.0-11.0) Red Blood Count 3.91 x10^6/uL (4.30-5.70) Hemoglobin 13.0 g/dL (13.0-17.5) Hematocrit 37.5 % (39.0-53.0) Mean Corpuscular Volume 96 fL (79-100) Mean Corpuscular Hemoglobin 33 pg (25-35) Mean Corpuscular Hemoglobin Concent 35 g/dL (31-37) Red Cell Distribution Width 12.6 % (11.5-14.5) Platelet Count 162 x10^3/uL (140-400) Neutrophils (%) (Auto) 80 % (31-73) Lymphocytes (%) (Auto) 6 % (24-48) Monocytes (%) (Auto) 14 % (0-9) Eosinophils (%) (Auto) 0 % (0-3) Basophils (%) (Auto) 0 % (0-3) Neutrophils # (Auto) 11.1 x10^3uL (1.8-7.7) Lymphocytes # (Auto) 0.8 x10^3/uL (1.0-4.8) Monocytes # (Auto) 2.0 x10^3/uL (0.0-1.1) Eosinophils # (Auto) 0.0 x10^3/uL (0.0-0.7) Basophils # (Auto) 0.0 x10^3/uL (0.0-0.2) Segmented Neutrophils % 66 % (35-66) Band Neutrophils % 16 % (0-9) Lymphocytes % 11 % (24-48) Monocytes % 7 % (0-10) Platelet Estimate Adequate (ADEQUATE) Sodium Level 135 mmol/L (136-145) Potassium Level 4.2 mmol/L (3.5-5.1) Chloride Level 101 mmol/L (98-107) Carbon Dioxide Level 26 mmol/L (21-32) Anion Gap 8 (6-14) Blood Urea Nitrogen 9 mg/dL (8-26) Creatinine 0.9 mg/dL (0.7-1.3) Estimated GFR (Cockcroft-Gault) 102.5 Glucose Level 107 mg/dL (70-99) Calcium Level 9.3 mg/dL (8.5-10.1) Phosphorus Level 2.9 mg/dL (2.6-4.7) Albumin 3.5 g/dL (3.4-5.0) Laboratory Tests Test 06/19/17 12:03 06/20/17 05:55 Glucose (Fingerstick) 127 mg/dL (70-99) White Blood Count 13.9 x10^3/uL (4.0-11.0) Red Blood Count 3.91 x10^6/uL (4.30-5.70) Hemoglobin 13.0 g/dL (13.0-17.5) Hematocrit 37.5 % (39.0-53.0) Mean Corpuscular Volume 96 fL (79-100) Mean Corpuscular Hemoglobin 33 pg (25-35) Mean Corpuscular Hemoglobin Concent 35 g/dL (31-37) Red Cell Distribution Width 12.6 % (11.5-14.5) Platelet Count 162 x10^3/uL (140-400) Neutrophils (%) (Auto) 80 % (31-73) Lymphocytes (%) (Auto) 6 % (24-48) Monocytes (%) (Auto) 14 % (0-9) Eosinophils (%) (Auto) 0 % (0-3) Basophils (%) (Auto) 0 % (0-3) Neutrophils # (Auto) 11.1 x10^3uL (1.8-7.7) Lymphocytes # (Auto) 0.8 x10^3/uL (1.0-4.8) Monocytes # (Auto) 2.0 x10^3/uL (0.0-1.1) Eosinophils # (Auto) 0.0 x10^3/uL (0.0-0.7) Basophils # (Auto) 0.0 x10^3/uL (0.0-0.2) Segmented Neutrophils % 66 % (35-66) Band Neutrophils % 16 % (0-9) Lymphocytes % 11 % (24-48) Monocytes % 7 % (0-10) Platelet Estimate Adequate (ADEQUATE) Sodium Level 135 mmol/L (136-145) Potassium Level 4.2 mmol/L (3.5-5.1) Chloride Level 101 mmol/L (98-107) Carbon Dioxide Level 26 mmol/L (21-32) Anion Gap 8 (6-14) Blood Urea Nitrogen 9 mg/dL (8-26) Creatinine 0.9 mg/dL (0.7-1.3) Estimated GFR (Cockcroft-Gault) 102.5 Glucose Level 107 mg/dL (70-99) Calcium Level 9.3 mg/dL (8.5-10.1) Phosphorus Level 2.9 mg/dL (2.6-4.7) Albumin 3.5 g/dL (3.4-5.0) Medications Current Medications Ondansetron HCl (Zofran) 4 mg PRN Q8HRS PRN IV NAUSEA/VOMITING; Start 06/08/17 at 16:45; Stop 06/09/17 at 14:42; Status DC Morphine Sulfate 2 mg PRN Q2HR PRN IV PAIN; Start 06/08/17 at 16:45; Stop 06/09 at 14:42; Status DC Acetaminophen (Tylenol) 650 mg PRN Q6HRS PRN PO FEVER; Start 06/08/17 at 17:45 ; Stop 06/18/17 at 14:09; Status DC Ondansetron HCl (Zofran) 4 mg PRN Q6HRS PRN IV NAUSEA/VOMITING; Start 06/08/17 at 17:45; Stop 06/18/17 at 14:11; Status DC Morphine Sulfate 2 mg PRN Q2HR PRN IV PAIN; Start 06/08/17 at 17:45; Stop 06/18 at 14:11; Status DC Tramadol HCl (Ultram) 50 mg PRN Q6HRS PRN PO PAIN MILD TO MOD; Start 06/08/17 at 17:45 Hydralazine HCl (Apresoline) 10 mg PRN Q4HRS PRN IVP ELEVATED BP, SEE COMMENTS ; Start 06/08/17 at 17:45 Docusate Sodium (Colace) 100 mg PRN DAILY PRN PO CONSTIPATION; Start 06/08/17 at 17:45 Albuterol Sulfate (Ventolin Neb Soln) 2.5 mg PRN Q4HRS PRN NEB SHORTNESS OF BREATH; Start 06/08/17 at 17:45; Stop 06/18/17 at 14:10; Status DC Enoxaparin Sodium (Lovenox 40mg Syringe) 40 mg Q24H SQ Last administered on 19:41; Start 06/08/17 at 18:00; Stop 06/14/17 at 14:20; Status DC Folic Acid (Folic Acid) 1 mg DAILY PO Last administered on 06/20/17 09:39; Start 06/08/17 at 18:00 Thiamine Mononitrate (Vitamin B-1) 100 mg DAILY PO Last administered on 09:33; Start 06/08/17 at 18:00 Lorazepam (Ativan) 2 mg PRN Q4HRS PRN IV ANXIETY / AGITATION Last administered on 06/09/17 00:49; Start 06/08/17 at 17:45 Lisinopril (Prinivil) 40 mg DAILY PO ; Start 06/08/17 at 18:00; Stop 06/08/17 at 18:45; Status DC Lisinopril (Prinivil) 20 mg DAILY PO ; Start 06/09/17 at 09:00; Stop 06/11/17 at 17:13; Status DC Zolpidem Tartrate (Ambien) 5 mg PRN QHS PRN PO INSOMNIA Last administered on 22:22; Start 06/08/17 at 20:45 Vitamin B Complex (Folbic Tablet) 1 tab DAILY PO Last administered on 09:33; Start 06/09/17 at 10:30 Cyanocobalamin (Vitamin B-12) 1,000 mcg 1X ONCE IM Last administered on 13:46; Start 06/09/17 at 10:45; Stop 06/09/17 at 10:46; Status DC Regadenoson (Lexiscan) 0.4 mg 1X ONCE IV ; Start 06/10/17 at 08:45; Stop at 08:46; Status DC Regadenoson (Lexiscan) 0.4 mg STK-MED ONCE IV ; Start 06/10/17 at 09:24; Stop at 09:25; Status DC Regadenoson (Lexiscan) 0.4 mg STK-MED ONCE IV ; Start 06/10/17 at 09:24; Stop at 10:04; Status DC Iohexol (Omnipaque 300 Mg/ml) 100 ml STK-MED ONCE .ROUTE ; Start 06/11/17 at 12: 54; Stop 06/11/17 at 12:55; Status DC Lidocaine HCl 20 ml STK-MED ONCE .ROUTE ; Start 06/11/17 at 12:55; Stop at 12:56; Status DC Heparin Sodium/ Sodium Chloride 500 ml @ As Directed STK-MED ONCE .ROUTE ; Start 06/11/17 at 12:55; Stop 06/11/17 at 12:56; Status DC Midazolam HCl (Versed) 2 mg STK-MED ONCE .ROUTE ; Start 06/11/17 at 13:23; Stop 06/11/17 at 13:24; Status DC Fentanyl Citrate (Fentanyl 2ml Vial) 100 mcg STK-MED ONCE .ROUTE ; Start at 13:23; Stop 06/11/17 at 13:24; Status DC Heparin Sodium/ Sodium Chloride 1,000 unit 1X ONCE IART Last administered on 13:52; Start 06/11/17 at 13:45; Stop 06/11/17 at 13:46; Status DC Midazolam HCl (Versed) 2 mg 1X ONCE IV Last administered on 06/11/17 13:52; Start 06/11/17 at 13:45; Stop 06/11/17 at 13:46; Status DC Fentanyl Citrate (Fentanyl 2ml Vial) 100 mcg 1X ONCE IV Last administered on 13:52; Start 06/11/17 at 13:45; Stop 06/11/17 at 13:46; Status DC Iohexol (Omnipaque 300 Mg/ml) 100 ml 1X ONCE IART Last administered on 13:51; Start 06/11/17 at 13:45; Stop 06/11/17 at 13:46; Status DC Lidocaine HCl 20 ml 1X ONCE IJ Last administered on 06/11/17 13:51; Start at 13:45; Stop 06/11/17 at 13:46; Status DC Metoprolol Tartrate (Lopressor) 25 mg BID PO Last administered on 06/17/17 22: 09; Start 06/11/17 at 21:00; Stop 06/18/17 at 14:10; Status DC Iohexol (Omnipaque 300 Mg/ml) 75 ml 1X ONCE IV Last administered on 06/12/17 08:12; Start 06/12/17 at 08:30; Stop 06/12/17 at 08:31; Status DC Info (Do NOT chart on this entry -- for MONITORING) 1 each PRN DAILY PRN MC SEE COMMENTS; Start 06/12/17 at 08:15; Stop 06/14/17 at 08:14; Status DC Lidocaine HCl (Xylocaine 2% Topical 5gm Tube) 1 grant 1X ONCE TP ; Start at 14:00; Stop 06/12/17 at 14:01; Status DC Lidocaine HCl (Viscous Lidocaine) 15 ml 1X ONCE MM ; Start 06/12/17 at 14:00; Stop 06/12/17 at 14:01; Status Cancel Benzocaine (Hurricaine One) 3 spray 1X ONCE MM ; Start 06/12/17 at 14:00; Stop 06/12/17 at 14:01; Status DC Lidocaine HCl (Viscous Lidocaine) 15 ml 1X PRN PRN MM FOR REBEKAH Last administered on 06/14/17 13:14; Start 06/14/17 at 09:00; Stop 06/14/17 at 18:00 ; Status DC Benzocaine (Hurricaine One) 3 spray 1X ONCE MM Last administered on 06/14/17 13:14; Start 06/14/17 at 07:00; Stop 06/14/17 at 07:01; Status DC Lidocaine HCl (Xylocaine 2% Topical 5gm Tube) 1 grant 1X ONCE TP Last administered on 06/14/17 13:17; Start 06/14/17 at 07:00; Stop 06/14/17 at 07:01 ; Status DC Lidocaine HCl (Xylocaine 2% Topical 30gm Tube) 30 grant STK-MED ONCE TP ; Start at 10:57; Stop 06/14/17 at 10:58; Status DC Ondansetron HCl (Zofran) 4 mg PRN Q6HRS PRN IV NAUSEA/VOMITING; Start 06/14/17 at 11:45; Stop 06/15/17 at 11:44; Status DC Fentanyl Citrate (Fentanyl 2ml Vial) 25 mcg PRN Q5MIN PRN IV MILD PAIN; Start 06/14/17 at 11:45; Stop 06/15/17 at 11:44; Status DC Fentanyl Citrate (Fentanyl 2ml Vial) 50 mcg PRN Q5MIN PRN IV MODERATE PAIN; Start 06/14/17 at 11:45; Stop 06/15/17 at 11:44; Status DC Morphine Sulfate 1 mg PRN Q10MIN PRN IV SEVERE PAIN; Start 06/14/17 at 11:45; Stop 06/15/17 at 11:44; Status DC Ringer's Solution 1,000 ml @ 30 mls/hr Q24H IV Last administered on 06/14/17t 11:31; Start 06/14/17 at 11:31; Stop 06/14/17 at 23:30; Status DC Lidocaine HCl (Xylocaine-Mpf 1% Vial) 2 ml 1X PRN PRN ID IV START; Start at 11:45; Stop 06/15/17 at 11:44; Status DC Hydromorphone HCl (Dilaudid) 0.5 mg PRN Q10MIN PRN IV SEV PAIN, Second choice; Start 06/14/17 at 11:45; Stop 06/15/17 at 11:44; Status DC Prochlorperazine Edisylate (Compazine) 5 mg PACU PRN PRN IV NAUSEA, MRX1; Start 06/14/17 at 11:45; Stop 06/15/17 at 11:44; Status DC Propofol 20 ml @ As Directed STK-MED ONCE IV ; Start 06/14/17 at 13:32; Stop at 13:33; Status DC Ondansetron HCl (Zofran) 4 mg PRN Q6HRS PRN IV NAUSEA/VOMITING; Start 06/15/17 at 07:00; Stop 06/16/17 at 06:59; Status DC Fentanyl Citrate (Fentanyl 2ml Vial) 25 mcg PRN Q5MIN PRN IV MILD PAIN; Start 06/15/17 at 07:00; Stop 06/16/17 at 06:59; Status DC Fentanyl Citrate (Fentanyl 2ml Vial) 50 mcg PRN Q5MIN PRN IV MODERATE PAIN; Start 06/15/17 at 07:00; Stop 06/16/17 at 06:59; Status DC Morphine Sulfate 1 mg PRN Q10MIN PRN IV SEVERE PAIN; Start 06/15/17 at 07:00; Stop 06/16/17 at 06:59; Status DC Ringer's Solution 1,000 ml @ 30 mls/hr Q24H IV ; Start 06/15/17 at 07:00; Stop 06/15/17 at 18:59; Status DC Lidocaine HCl (Xylocaine-Mpf 1% Vial) 2 ml PRN 1X PRN ID IV START; Start at 07:00; Stop 06/16/17 at 06:59; Status DC Hydromorphone HCl (Dilaudid) 0.5 mg PRN Q10MIN PRN IV SEV PAIN, Second choice; Start 06/15/17 at 07:00; Stop 06/16/17 at 06:59; Status DC Prochlorperazine Edisylate (Compazine) 5 mg PACU PRN PRN IV NAUSEA, MRX1; Start 06/15/17 at 07:00; Stop 06/16/17 at 06:59; Status DC Potassium Chloride 70 meq/ Sodium Bicarbonate 12.5 meq/Lidocaine HCl 24 ml/ Parenteral Electrolytes 571.5 ml @ 571.5 mls/ hr 1X PERIOP ONCE IRR ; Start at 06:00; Stop 06/15/17 at 06:59; Status DC Potassium Chloride 15 meq/ Sodium Bicarbonate 12.5 meq/Parenteral Electrolytes 520 ml @ 520 mls/hr 1X PERIOP ONCE IRR ; Start 06/15/17 at 06:00; Stop at 06:59; Status DC Heparin Sodium (Porcine) 91879 unit/Ringer's Solution 1,020 ml @ 1,020 mls/hr 1X PERIOP ONCE IRR ; Start 06/15/17 at 06:00; Stop 06/15/17 at 06:59; Status DC Etomidate (Amidate) 20 mg STK-MED ONCE IV ; Start 06/15/17 at 06:14; Stop at 06:15; Status DC Lidocaine HCl (Lidocaine Pf 2% Vial) 5 ml STK-MED ONCE .ROUTE ; Start 06/15/17 at 06:14; Stop 06/15/17 at 06:15; Status DC Ephedrine Sulfate 50 mg STK-MED ONCE IV ; Start 06/15/17 at 06:14; Stop at 06:15; Status DC Phenylephrine HCl (Arthur-Synephrine Inj) 10 mg STK-MED ONCE .ROUTE ; Start at 06:15; Stop 06/15/17 at 06:16; Status DC Rocuronium [place] (Zemuron) 100 mg STK-MED ONCE .ROUTE ; Start 06/15/17 at 06: 15; Stop 06/15/17 at 06:16; Status DC Heparin Sodium (Porcine) 30,000 unit STK-MED ONCE .ROUTE ; Start 06/15/17 at 06: 15; Stop 06/15/17 at 06:16; Status DC Aminocaproic Acid (Amicar) 5,000 mg STK-MED ONCE IV ; Start 06/15/17 at 06:15; Stop 06/15/17 at 06:16; Status DC Nitroglycerin/ Dextrose 250 ml @ As Directed STK-MED ONCE IV ; Start 06/15/17 at 06:15; Stop 06/15/17 at 06:16; Status DC Sufentanil Citrate (Sufenta) 100 mcg STK-MED ONCE .ROUTE ; Start 06/15/17 at 06: 17; Stop 06/15/17 at 06:18; Status DC Midazolam HCl (Versed) 2 mg STK-MED ONCE .ROUTE ; Start 06/15/17 at 06:20; Stop 06/15/17 at 06:21; Status DC Cefazolin Sodium/ Dextrose 50 ml @ 100 mls/hr 1X PREOP ONCE IV ; Start at 07:45; Stop 06/15/17 at 08:14; Status DC Cefazolin Sodium 1 gm/Sodium Chloride 500 ml @ 500 mls/hr 1X PERIOP ONCE IRR Last administered on 06/18/17 08:59; Start 06/18/17 at 06:00; Stop 06/18/17 at 06:59; Status DC Potassium Chloride 70 meq/ Sodium Bicarbonate 12.5 meq/Lidocaine HCl 24 ml/ Parenteral Electrolytes 571.5 ml @ 571.5 mls/ hr 1X PERIOP ONCE IRR Last administered on 06/18/17 10:45; Start 06/18/17 at 06:00; Stop 06/18/17 at 06:59 ; Status DC Potassium Chloride 15 meq/ Sodium Bicarbonate 12.5 meq/Parenteral Electrolytes 520 ml @ 520 mls/hr 1X PERIOP ONCE IRR Last administered on 06/18/17 10:45; Start 06/18/17 at 06:00; Stop 06/18/17 at 06:59; Status DC Heparin Sodium (Porcine) 55753 unit/Ringer's Solution 1,020 ml @ 1,020 mls/hr 1X PERIOP ONCE IRR Last administered on 06/18/17 08:59; Start 06/18/17 at 06: 00; Stop 06/18/17 at 06:59; Status DC Ondansetron HCl (Zofran) 4 mg PRN Q6HRS PRN IV NAUSEA/VOMITING; Start 06/18/17 at 07:00; Stop 06/18/17 at 14:11; Status DC Fentanyl Citrate (Fentanyl 2ml Vial) 25 mcg PRN Q5MIN PRN IV MILD PAIN; Start 06/18/17 at 07:00; Stop 06/18/17 at 14:12; Status DC Fentanyl Citrate (Fentanyl 2ml Vial) 50 mcg PRN Q5MIN PRN IV MODERATE PAIN; Start 06/18/17 at 07:00; Stop 06/18/17 at 14:12; Status DC Morphine Sulfate 1 mg PRN Q10MIN PRN IV SEVERE PAIN; Start 06/18/17 at 07:00; Stop 06/18/17 at 14:11; Status DC Ringer's Solution 1,000 ml @ 30 mls/hr Q24H IV ; Start 06/18/17 at 07:00; Stop 06/18/17 at 14:12; Status DC Lidocaine HCl (Xylocaine-Mpf 1% Vial) 2 ml PRN 1X PRN ID IV START; Start at 07:00; Stop 06/18/17 at 14:12; Status DC Hydromorphone HCl (Dilaudid) 0.5 mg PRN Q10MIN PRN IV SEV PAIN, Second choice; Start 06/18/17 at 07:00; Stop 06/18/17 at 14:13; Status DC Prochlorperazine Edisylate (Compazine) 5 mg PACU PRN PRN IV NAUSEA, MRX1; Start 06/18/17 at 07:00; Stop 06/18/17 at 14:13; Status DC Cefazolin Sodium/ Dextrose 50 ml @ As Directed STK-MED ONCE IV ; Start 06/18/17 at 06:27; Stop 06/18/17 at 06:28; Status DC Vancomycin HCl (Vanco) 10 gm STK-MED ONCE .ROUTE Last administered on 08:59; Start 06/18/17 at 06:24; Stop 06/18/17 at 07:24; Status DC Cellulose 1 each STK-MED ONCE .ROUTE Last administered on 06/18/17 08:59; Start 06/18/17 at 06:24; Stop 06/18/17 at 07:24; Status DC Papaverine HCl 60 mg STK-MED ONCE .ROUTE Last administered on 06/18/17 08:59; Start 06/18/17 at 06:24; Stop 06/18/17 at 07:24; Status DC Aspirin (Aspirin) 300 mg STK-MED ONCE .ROUTE Last administered on 06/18/17 13: 21; Start 06/18/17 at 06:24; Stop 06/18/17 at 07:24; Status DC Sodium Chloride (Sodium Chloride) 50 ml STK-MED ONCE IJ Last administered on 08:59; Start 06/18/17 at 06:24; Stop 06/18/17 at 07:24; Status DC Cefazolin Sodium/ Dextrose 50 ml @ 100 mls/hr 1X ONCE IV Last administered on 06/18/17 12:33; Start 06/18/17 at 11:30; Stop 06/18/17 at 11:59; Status DC Sodium Chloride (Normal Saline Flush) 3 ml PRN Q12HR PRN IV AFTER MEDS AND BLOOD DRAWS; Start 06/18/17 at 13:30 Ringer's Solution 1,000 ml @ 30 mls/hr Q24H IV Last administered on 06/18/17 14:29; Start 06/18/17 at 13:22; Stop 06/19/17 at 12:48; Status DC Albumin Human 250 ml @ 60 mls/hr PRN Q4HRS PRN IV SEE I/O RECORD Last administered on 06/18/17 18:07; Start 06/18/17 at 13:30; Stop 06/19/17 at 12:48 ; Status DC Insulin Human Regular 150 unit/ Sodium Chloride 151.5 ml @ 0 mls/hr CONT PRN PRN IV SEE I/O RECORD Last administered on 06/18/17 16:34; Start 06/18/17 at 13 :30; Stop 06/19/17 at 12:48; Status DC Dextrose (Dextrose 50%-Water Syringe) 25 gm PRN Q15MIN PRN IV LOW BLOOD SUGAR; Start 06/18/17 at 13:30 Amiodarone HCl 150 mg/Dextrose 103 ml @ 200 mls/hr STAT IV Last administered on 06/18/17 14:47; Start 06/18/17 at 13:30; Stop 06/19/17 at 12:48; Status DC Amiodarone HCl 900 mg/Dextrose 518 ml @ 33.33 mls/ hr STAT IV Last administered on 06/18/17 14:47; Start 06/18/17 at 13:30; Stop 06/19/17 at 12:45 ; Status DC Amiodarone HCl (Cordarone) 400 mg BID PO ; Start 06/19/17 at 21:00; Stop at 21:00; Status DC Info 1 ea CONT PRN PRN MC SEE COMMENTS; Start 06/18/17 at 13:30 Info 1 ea CONT PRN PRN MC SEE COMMENTS; Start 06/18/17 at 13:30; Stop 06/19/17 at 12:48; Status DC Magnesium Sulfate/ Dextrose 100 ml @ 100 mls/hr PRN DAILY PRN IV FOR MAG < 2.2 Last administered on 06/19/17 10:36; Start 06/18/17 at 13:30 Famotidine (Pepcid) 20 mg BID IVP Last administered on 06/18/17 20:41; Start 06/18/17 at 21:00; Stop 06/19/17 at 10:02; Status DC Ondansetron HCl (Zofran) 4 mg PRN Q4HRS PRN IV NAUSEA/VOMITING; Start 06/18/17 at 13:30 Morphine Sulfate 2 mg PRN Q1HR PRN IV PAIN Last administered on 06/19/17 02:09 ; Start 06/18/17 at 13:30 Acetaminophen (Tylenol) 650 mg PRN Q4HRS PRN PO MILD PAIN / TEMP; Start at 13:30 Meperidine HCl (Demerol) 12.5 mg PRN Q15MIN PRN IV SHIVERING Last administered on 06/18/17 14:28; Start 06/18/17 at 13:30; Stop 06/19/17 at 13:22; Status DC Senna/Docusate Sodium (Senna Plus) 1 tab BID PO Last administered on 06/20/17 09:34; Start 06/18/17 at 21:00 Bisacodyl (Dulcolax Supp) 10 mg PRN DAILY PRN RI NO BOWEL MOVEMENT; Start 06/18 at 13:30 Aspirin (Ecotrin) 325 mg DAILYWBKFT PO Last administered on 06/20/17 09:34; Start 06/19/17 at 08:00 Aspirin (Aspirin) 300 mg PRN DAILY PRN RI IF UNABLE TO TAKE PO; Start 06/18/17 at 13:30 Albuterol Sulfate (Ventolin Neb Soln) 2.5 mg PRN Q4HRS PRN NEB SHORTNESS OF BREATH; Start 06/18/17 at 13:30 Metoprolol Tartrate (Lopressor) 25 mg BID PO Last administered on 06/20/17 09: 39; Start 06/19/17 at 09:00 Nicardipine HCl 50 mg/Sodium Chloride 270 ml @ 0 mls/hr CONT PRN PRN IV PER PROTOCOL; Start 06/18/17 at 13:30; Stop 06/19/17 at 12:48; Status DC Oxycodone/ Acetaminophen (Percocet 5/325) 1 tab PRN Q4HRS PRN PO MILD PAIN Last administered on 06/20/17 01:11; Start 06/18/17 at 13:30 Oxycodone/ Acetaminophen (Percocet 5/325) 2 tab PRN Q4HRS PRN PO MODERATE PAIN , SEVERE PAIN Last administered on 06/20/17 02:15; Start 06/18/17 at 13:30 Cefazolin Sodium 1 gm/Sodium Chloride 50 ml @ 100 mls/hr Q8H IV Last administered on 06/20/17 04:01; Start 06/18/17 at 20:00; Stop 06/20/17 at 04:29 ; Status DC Clevidipine 100 ml @ 0 mls/hr CONT PRN IV PER PROTOCOL Last administered on 14:28; Start 06/18/17 at 14:15; Stop 06/19/17 at 12:48; Status DC Propofol 100 ml @ 0 mls/hr CONT PRN IV SEE I/O RECORD Last administered on 06/18 14:47; Start 06/18/17 at 14:30; Stop 06/19/17 at 12:48; Status DC Potassium Chloride 50 ml @ 50 mls/hr Q1H IV Last administered on 06/18/17 17: 42; Start 06/18/17 at 16:15; Stop 06/18/17 at 18:14; Status DC Famotidine (Pepcid) 20 mg BID PO Last administered on 06/20/17 09:34; Start at 10:30 Amiodarone HCl (Cordarone) 200 mg BID PO Last administered on 06/20/17 09:37; Start 06/19/17 at 13:00 Active Scripts Active Reported [none] Vitals/I & O Vital Sign - Last 24 Hours 06/19/17 06/19/17 06/19/17 06/19/17 11:53 12:00 13:00 14:00 Temp 97.9 97.9 Pulse 72 70 72 78 Resp 23 25 26 30 B/P (MAP) 109/73 (85) 113/69 (84) 115/71 (86) 105/69 (81) Pulse Ox 100 100 99 95 O2 Delivery Nasal Cannula Nasal Cannula O2 Flow Rate 2.0 2.0 2.0 2.0 06/19/17 06/19/17 06/19/17 06/19/17 15:00 15:59 19:56 20:00 Temp 99.0 98.1 99.0 98.1 Pulse 70 80 Resp 30 20 20 B/P (MAP) 113/75 (88) 106/64 (78) 122/71 (88) Pulse Ox 98 97 O2 Delivery Nasal Cannula Nasal Cannula Nasal Cannula O2 Flow Rate 2.0 2.0 2.0 06/19/17 06/19/17 06/20/17 06/20/17 21:09 21:10 01:11 02:15 Pulse 80 80 Resp 17 18 B/P (MAP) 122/71 122/71 Pulse Ox 97 97 O2 Delivery Nasal Cannula Nasal Cannula O2 Flow Rate 2.0 2.0 06/20/17 06/20/17 06/20/17 06/20/17 02:17 03:30 03:55 07:00 Temp 98.2 99.1 98.2 99.1 Pulse 81 85 Resp 17 18 20 18 B/P (MAP) 133/76 (95) 109/63 (78) Pulse Ox 97 97 98 98 O2 Delivery Nasal Cannula Nasal Cannula Nasal Cannula Nasal Cannula O2 Flow Rate 2.0 2.0 2.0 2.0 06/20/17 06/20/17 06/20/17 09:37 09:39 11:00 Temp 97.8 97.8 Pulse 85 85 82 Resp 20 B/P (MAP) 108/66 108/66 102/63 (76) Pulse Ox 99 O2 Delivery Nasal Cannula O2 Flow Rate 2.0 Intake and Output 06/20/17 06/20/17 06/21/17 15:00 23:00 07:00 Intake Total 250 ml Balance 250 ml ONIEL COUGHLIN MD Jun 20, 2017 11:50
--- NOTE | 2017-06-20 12:28 | PDOC ---
Provider Note Provider Note Covering for Dr. Brooks. He has no complaints. Heart regular. Lungs are clear. He has been ambulating the hallways. CLARY CRONIN MD Jun 20, 2017 12:28
[2017-06-20 15:00] VITALS: BP 127/82
[2017-06-20 19:11] VITALS: BP 122/72
[2017-06-20 22:53] VITALS: BP 104/66
[2017-06-21] VITALS (7 sets, daily range): BP systolic 103–116; BP diastolic 56–69
--- NOTE | 2017-06-21 07:39 | RAD ---
Portable chest, 06/21/2017: History: Postop CABG Comparison is made to yesterday's study. The left chest tube has been removed. The heart size is unchanged. The pulmonary vascularity is within normal limits. There is ongoing discoid atelectasis in the left upper lobe. There is persistent moderate atelectasis/infiltrate in the left base. A small amount of left-sided pleural fluid cannot be excluded. The right chest remains clear. There is no evidence of pneumothorax. IMPRESSION: 1. Unchanged atelectasis/infiltrate on the left. 2. No new abnormality is detected.
--- NOTE | 2017-06-21 08:27 | EKG ---
[facility] [address] [place] [id number] Test Date: 2017-06-21 Test Time: 08:06:39 Pat Name: MAXIMO GILES Department: Room: 207 Gender: M [employer]r: : [id number] Requested By: ONIEL COUGHLIN Order Number: [id number] Reading MD: Jeff Kessler Measurements Intervals [place] Rate: 86 P: 76 [place]: 110 QRS: 73 QRSD: 90 T: 111 QT: 366 QTc: 441 Interpretive Statements SINUS RHYTHM LATERAL ST SEGMENT ELEVATION - Electronically Signed On 07-13-2017 14:15:40 CDT by Jeff Kessler
--- NOTE | 2017-06-21 08:38 | PDOC ---
Progress Note Subjective Subjective Doing very well. On room air. Normotensive and in SR. CXR OK. 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 On room air. Normotensive and in SR. CXR OK. Poor appetite, no BM Plan Plan of Care Amiodarone for AFib prophylaxis-stop before discharge ASA, statin, b suleiman Bowel regimen D/c home tomorrow CORY CALLAWAY MD Jun 21, 2017 08:38
[2017-06-21] MEDS ORDERED: SENNOSIDES 8.6 MG TABLET PO PRN (08:45)
[2017-06-21] MEDS: AMIODARONE HCL 200 MG TABLET. PO SCH ×2 (10:05→20:54)
[2017-06-21] MEDS: THIAMINE 100 MG TABLET. PO SCH (10:05)
[2017-06-21] MEDS: VITAMIN B12,B9,B6 COMPLEX 1 TABLET. PO SCH (10:05)
[2017-06-21] MEDS: ASPIRIN ENTERIC COATED 325 MG TABLET.DR. PO SCH (10:06)
[2017-06-21] MEDS: FOLIC ACID 1 MG TABLET. PO SCH (10:06)
[2017-06-21] MEDS: FAMOTIDINE 20 MG TABLET. PO SCH ×2 (10:07→20:54)
[2017-06-21] MEDS: METOPROLOL TART IMMED RELEASE 25 MG TABLET. PO SCH (10:08)
[2017-06-21] MEDS: SENNOSIDES/DOCUSATE 8.6/50MG TABLET. PO SCH (10:12)
[2017-06-21] MEDS: POLYETHYLENE GLYCOL 3350 17 GM PACKET. PO SCH (10:45)
[2017-06-21] MEDS ORDERED: MAGNESIUM HYDROXIDE 2,400 MG/30 ML ORAL.SUSP. PO ONE (10:45)
[2017-06-21] MEDS ORDERED: MAGNESIUM HYDROXIDE 2,400 MG/30 ML ORAL.SUSP. PO PRN (10:45)
--- NOTE | 2017-06-21 10:55 | PDOC ---
PROGRESS NOTES Chief Complaint Chief Complaint s.p CABG POD # 3 (06/18/17) Aneurysm, Cardiac by REBEKAH exertional dyspnea with CHF likely chest pain with dyspnea chronic combined systolic and diastolic CHF,, est EF 40% on MPI H/O CAD 2013 with 1 stent at obtuse marginal branch HTN poor control, noncompliant with emds alcohol abuse d/o, prior tobaccoism leg weakness, unsteady gait and peripheral neuropathy History of Present Illness History of Present Illness Seen post CABG # 3 COnt to do good LAbs good [place], cordis and mediastinal tubes out Planned for dc richi COnstipated PLAN: Bowel regimen ordered for today No pT needs HOme with family tmr Vitals Vitals Vital Signs Date Time Temp Pulse Resp B/P (MAP) Pulse Ox O2 Delivery O2 Flow Rate FiO2 06/21/17 10:08 86 116/68 06/21/17 07:00 98.9 93 Room Air 98.9 06/21/17 07:00 22 06/21/17 03:37 2.0 Physical Exam Physical Exam GENERAL: NAD, Alert HEENT: PERRL, OC/OP NECK: Supple, no JVD, no LN LUNGS: Clear HEART: S1S2, no gallop, no murmur ABD: Soft, NT, no organomegaly, no rebound EXT: No edema, no cyanosis 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 Labs Laboratory Tests Test 06/19/17 12:03 06/20/17 05:55 Glucose (Fingerstick) 127 mg/dL (70-99) White Blood Count 13.9 x10^3/uL (4.0-11.0) Red Blood Count 3.91 x10^6/uL (4.30-5.70) Hemoglobin 13.0 g/dL (13.0-17.5) Hematocrit 37.5 % (39.0-53.0) Mean Corpuscular Volume 96 fL (79-100) Mean Corpuscular Hemoglobin 33 pg (25-35) Mean Corpuscular Hemoglobin Concent 35 g/dL (31-37) Red Cell Distribution Width 12.6 % (11.5-14.5) Platelet Count 162 x10^3/uL (140-400) Neutrophils (%) (Auto) 80 % (31-73) Lymphocytes (%) (Auto) 6 % (24-48) Monocytes (%) (Auto) 14 % (0-9) Eosinophils (%) (Auto) 0 % (0-3) Basophils (%) (Auto) 0 % (0-3) Neutrophils # (Auto) 11.1 x10^3uL (1.8-7.7) Lymphocytes # (Auto) 0.8 x10^3/uL (1.0-4.8) Monocytes # (Auto) 2.0 x10^3/uL (0.0-1.1) Eosinophils # (Auto) 0.0 x10^3/uL (0.0-0.7) Basophils # (Auto) 0.0 x10^3/uL (0.0-0.2) Segmented Neutrophils % 66 % (35-66) Band Neutrophils % 16 % (0-9) Lymphocytes % 11 % (24-48) Monocytes % 7 % (0-10) Platelet Estimate Adequate (ADEQUATE) Sodium Level 135 mmol/L (136-145) Potassium Level 4.2 mmol/L (3.5-5.1) Chloride Level 101 mmol/L (98-107) Carbon Dioxide Level 26 mmol/L (21-32) Anion Gap 8 (6-14) Blood Urea Nitrogen 9 mg/dL (8-26) Creatinine 0.9 mg/dL (0.7-1.3) Estimated GFR (Cockcroft-Gault) 102.5 Glucose Level 107 mg/dL (70-99) Calcium Level 9.3 mg/dL (8.5-10.1) Phosphorus Level 2.9 mg/dL (2.6-4.7) Albumin 3.5 g/dL (3.4-5.0) Medications Current Medications Ondansetron HCl (Zofran) 4 mg PRN Q8HRS PRN IV NAUSEA/VOMITING; Start 06/08/17 at 16:45; Stop 06/09/17 at 14:42; Status DC Morphine Sulfate 2 mg PRN Q2HR PRN IV PAIN; Start 06/08/17 at 16:45; Stop 06/09 at 14:42; Status DC Acetaminophen (Tylenol) 650 mg PRN Q6HRS PRN PO FEVER; Start 06/08/17 at 17:45 ; Stop 06/18/17 at 14:09; Status DC Ondansetron HCl (Zofran) 4 mg PRN Q6HRS PRN IV NAUSEA/VOMITING; Start 06/08/17 at 17:45; Stop 06/18/17 at 14:11; Status DC Morphine Sulfate 2 mg PRN Q2HR PRN IV PAIN; Start 06/08/17 at 17:45; Stop 06/18 at 14:11; Status DC Tramadol HCl (Ultram) 50 mg PRN Q6HRS PRN PO PAIN MILD TO MOD; Start 06/08/17 at 17:45 Hydralazine HCl (Apresoline) 10 mg PRN Q4HRS PRN IVP ELEVATED BP, SEE COMMENTS ; Start 06/08/17 at 17:45 Docusate Sodium (Colace) 100 mg PRN DAILY PRN PO CONSTIPATION; Start 06/08/17 at 17:45 Albuterol Sulfate (Ventolin Neb Soln) 2.5 mg PRN Q4HRS PRN NEB SHORTNESS OF BREATH; Start 06/08/17 at 17:45; Stop 06/18/17 at 14:10; Status DC Enoxaparin Sodium (Lovenox 40mg Syringe) 40 mg Q24H SQ Last administered on 19:41; Start 06/08/17 at 18:00; Stop 06/14/17 at 14:20; Status DC Folic Acid (Folic Acid) 1 mg DAILY PO Last administered on 06/21/17 10:06; Start 06/08/17 at 18:00 Thiamine Mononitrate (Vitamin B-1) 100 mg DAILY PO Last administered on 10:05; Start 06/08/17 at 18:00 Lorazepam (Ativan) 2 mg PRN Q4HRS PRN IV ANXIETY / AGITATION Last administered on 06/09/17 00:49; Start 06/08/17 at 17:45 Lisinopril (Prinivil) 40 mg DAILY PO ; Start 06/08/17 at 18:00; Stop 06/08/17 at 18:45; Status DC Lisinopril (Prinivil) 20 mg DAILY PO ; Start 06/09/17 at 09:00; Stop 06/11/17 at 17:13; Status DC Zolpidem Tartrate (Ambien) 5 mg PRN QHS PRN PO INSOMNIA Last administered on 22:22; Start 06/08/17 at 20:45 Vitamin B Complex (Folbic Tablet) 1 tab DAILY PO Last administered on 10:05; Start 06/09/17 at 10:30 Cyanocobalamin (Vitamin B-12) 1,000 mcg 1X ONCE IM Last administered on 13:46; Start 06/09/17 at 10:45; Stop 06/09/17 at 10:46; Status DC Regadenoson (Lexiscan) 0.4 mg 1X ONCE IV ; Start 06/10/17 at 08:45; Stop at 08:46; Status DC Regadenoson (Lexiscan) 0.4 mg STK-MED ONCE IV ; Start 06/10/17 at 09:24; Stop at 09:25; Status DC Regadenoson (Lexiscan) 0.4 mg STK-MED ONCE IV ; Start 06/10/17 at 09:24; Stop at 10:04; Status DC Iohexol (Omnipaque 300 Mg/ml) 100 ml STK-MED ONCE .ROUTE ; Start 06/11/17 at 12: 54; Stop 06/11/17 at 12:55; Status DC Lidocaine HCl 20 ml STK-MED ONCE .ROUTE ; Start 06/11/17 at 12:55; Stop at 12:56; Status DC Heparin Sodium/ Sodium Chloride 500 ml @ As Directed STK-MED ONCE .ROUTE ; Start 06/11/17 at 12:55; Stop 06/11/17 at 12:56; Status DC Midazolam HCl (Versed) 2 mg STK-MED ONCE .ROUTE ; Start 06/11/17 at 13:23; Stop 06/11/17 at 13:24; Status DC Fentanyl Citrate (Fentanyl 2ml Vial) 100 mcg STK-MED ONCE .ROUTE ; Start at 13:23; Stop 06/11/17 at 13:24; Status DC Heparin Sodium/ Sodium Chloride 1,000 unit 1X ONCE IART Last administered on 13:52; Start 06/11/17 at 13:45; Stop 06/11/17 at 13:46; Status DC Midazolam HCl (Versed) 2 mg 1X ONCE IV Last administered on 06/11/17 13:52; Start 06/11/17 at 13:45; Stop 06/11/17 at 13:46; Status DC Fentanyl Citrate (Fentanyl 2ml Vial) 100 mcg 1X ONCE IV Last administered on 13:52; Start 06/11/17 at 13:45; Stop 06/11/17 at 13:46; Status DC Iohexol (Omnipaque 300 Mg/ml) 100 ml 1X ONCE IART Last administered on 13:51; Start 06/11/17 at 13:45; Stop 06/11/17 at 13:46; Status DC Lidocaine HCl 20 ml 1X ONCE IJ Last administered on 06/11/17 13:51; Start at 13:45; Stop 06/11/17 at 13:46; Status DC Metoprolol Tartrate (Lopressor) 25 mg BID PO Last administered on 06/17/17 22: 09; Start 06/11/17 at 21:00; Stop 06/18/17 at 14:10; Status DC Iohexol (Omnipaque 300 Mg/ml) 75 ml 1X ONCE IV Last administered on 06/12/17 08:12; Start 06/12/17 at 08:30; Stop 06/12/17 at 08:31; Status DC Info (Do NOT chart on this entry -- for MONITORING) 1 each PRN DAILY PRN MC SEE COMMENTS; Start 06/12/17 at 08:15; Stop 06/14/17 at 08:14; Status DC Lidocaine HCl (Xylocaine 2% Topical 5gm Tube) 1 grant 1X ONCE TP ; Start at 14:00; Stop 06/12/17 at 14:01; Status DC Lidocaine HCl (Viscous Lidocaine) 15 ml 1X ONCE MM ; Start 06/12/17 at 14:00; Stop 06/12/17 at 14:01; Status Cancel Benzocaine (Hurricaine One) 3 spray 1X ONCE MM ; Start 06/12/17 at 14:00; Stop 06/12/17 at 14:01; Status DC Lidocaine HCl (Viscous Lidocaine) 15 ml 1X PRN PRN MM FOR REBEKAH Last administered on 06/14/17 13:14; Start 06/14/17 at 09:00; Stop 06/14/17 at 18:00 ; Status DC Benzocaine (Hurricaine One) 3 spray 1X ONCE MM Last administered on 06/14/17 13:14; Start 06/14/17 at 07:00; Stop 06/14/17 at 07:01; Status DC Lidocaine HCl (Xylocaine 2% Topical 5gm Tube) 1 grant 1X ONCE TP Last administered on 06/14/17 13:17; Start 06/14/17 at 07:00; Stop 06/14/17 at 07:01 ; Status DC Lidocaine HCl (Xylocaine 2% Topical 30gm Tube) 30 grant STK-MED ONCE TP ; Start at 10:57; Stop 06/14/17 at 10:58; Status DC Ondansetron HCl (Zofran) 4 mg PRN Q6HRS PRN IV NAUSEA/VOMITING; Start 06/14/17 at 11:45; Stop 06/15/17 at 11:44; Status DC Fentanyl Citrate (Fentanyl 2ml Vial) 25 mcg PRN Q5MIN PRN IV MILD PAIN; Start 06/14/17 at 11:45; Stop 06/15/17 at 11:44; Status DC Fentanyl Citrate (Fentanyl 2ml Vial) 50 mcg PRN Q5MIN PRN IV MODERATE PAIN; Start 06/14/17 at 11:45; Stop 06/15/17 at 11:44; Status DC Morphine Sulfate 1 mg PRN Q10MIN PRN IV SEVERE PAIN; Start 06/14/17 at 11:45; Stop 06/15/17 at 11:44; Status DC Ringer's Solution 1,000 ml @ 30 mls/hr Q24H IV Last administered on 06/14/17 11:31; Start 06/14/17 at 11:31; Stop 06/14/17 at 23:30; Status DC Lidocaine HCl (Xylocaine-Mpf 1% Vial) 2 ml 1X PRN PRN ID IV START; Start at 11:45; Stop 06/15/17 at 11:44; Status DC Hydromorphone HCl (Dilaudid) 0.5 mg PRN Q10MIN PRN IV SEV PAIN, Second choice; Start 06/14/17 at 11:45; Stop 06/15/17 at 11:44; Status DC Prochlorperazine Edisylate (Compazine) 5 mg PACU PRN PRN IV NAUSEA, MRX1; Start 06/14/17 at 11:45; Stop 06/15/17 at 11:44; Status DC Propofol 20 ml @ As Directed STK-MED ONCE IV ; Start 06/14/17 at 13:32; Stop at 13:33; Status DC Ondansetron HCl (Zofran) 4 mg PRN Q6HRS PRN IV NAUSEA/VOMITING; Start 06/15/17 at 07:00; Stop 06/16/17 at 06:59; Status DC Fentanyl Citrate (Fentanyl 2ml Vial) 25 mcg PRN Q5MIN PRN IV MILD PAIN; Start 06/15/17 at 07:00; Stop 06/16/17 at 06:59; Status DC Fentanyl Citrate (Fentanyl 2ml Vial) 50 mcg PRN Q5MIN PRN IV MODERATE PAIN; Start 06/15/17 at 07:00; Stop 06/16/17 at 06:59; Status DC Morphine Sulfate 1 mg PRN Q10MIN PRN IV SEVERE PAIN; Start 06/15/17 at 07:00; Stop 06/16/17 at 06:59; Status DC Ringer's Solution 1,000 ml @ 30 mls/hr Q24H IV ; Start 06/15/17 at 07:00; Stop 06/15/17 at 18:59; Status DC Lidocaine HCl (Xylocaine-Mpf 1% Vial) 2 ml PRN 1X PRN ID IV START; Start at 07:00; Stop 06/16/17 at 06:59; Status DC Hydromorphone HCl (Dilaudid) 0.5 mg PRN Q10MIN PRN IV SEV PAIN, Second choice; Start 06/15/17 at 07:00; Stop 06/16/17 at 06:59; Status DC Prochlorperazine Edisylate (Compazine) 5 mg PACU PRN PRN IV NAUSEA, MRX1; Start 06/15/17 at 07:00; Stop 06/16/17 at 06:59; Status DC Potassium Chloride 70 meq/ Sodium Bicarbonate 12.5 meq/Lidocaine HCl 24 ml/ Parenteral Electrolytes 571.5 ml @ 571.5 mls/ hr 1X PERIOP ONCE IRR ; Start at 06:00; Stop 06/15/17 at 06:59; Status DC Potassium Chloride 15 meq/ Sodium Bicarbonate 12.5 meq/Parenteral Electrolytes 520 ml @ 520 mls/hr 1X PERIOP ONCE IRR ; Start 06/15/17 at 06:00; Stop at 06:59; Status DC Heparin Sodium (Porcine) 35693 unit/Ringer's Solution 1,020 ml @ 1,020 mls/hr 1X PERIOP ONCE IRR ; Start 06/15/17 at 06:00; Stop 06/15/17 at 06:59; Status DC Etomidate (Amidate) 20 mg STK-MED ONCE IV ; Start 06/15/17 at 06:14; Stop at 06:15; Status DC Lidocaine HCl (Lidocaine Pf 2% Vial) 5 ml STK-MED ONCE .ROUTE ; Start 06/15/17 at 06:14; Stop 06/15/17 at 06:15; Status DC Ephedrine Sulfate 50 mg STK-MED ONCE IV ; Start 06/15/17 at 06:14; Stop at 06:15; Status DC Phenylephrine HCl (Arthur-Synephrine Inj) 10 mg STK-MED ONCE .ROUTE ; Start at 06:15; Stop 06/15/17 at 06:16; Status DC Rocuronium [place] (Zemuron) 100 mg STK-MED ONCE .ROUTE ; Start 06/15/17 at 06: 15; Stop 06/15/17 at 06:16; Status DC Heparin Sodium (Porcine) 30,000 unit STK-MED ONCE .ROUTE ; Start 06/15/17 at 06: 15; Stop 06/15/17 at 06:16; Status DC Aminocaproic Acid (Amicar) 5,000 mg STK-MED ONCE IV ; Start 06/15/17 at 06:15; Stop 06/15/17 at 06:16; Status DC Nitroglycerin/ Dextrose 250 ml @ As Directed STK-MED ONCE IV ; Start 06/15/17 at 06:15; Stop 06/15/17 at 06:16; Status DC Sufentanil Citrate (Sufenta) 100 mcg STK-MED ONCE .ROUTE ; Start 06/15/17 at 06: 17; Stop 06/15/17 at 06:18; Status DC Midazolam HCl (Versed) 2 mg STK-MED ONCE .ROUTE ; Start 06/15/17 at 06:20; Stop 06/15/17 at 06:21; Status DC Cefazolin Sodium/ Dextrose 50 ml @ 100 mls/hr 1X PREOP ONCE IV ; Start at 07:45; Stop 06/15/17 at 08:14; Status DC Cefazolin Sodium 1 gm/Sodium Chloride 500 ml @ 500 mls/hr 1X PERIOP ONCE IRR Last administered on 06/18/17 08:59; Start 06/18/17 at 06:00; Stop 06/18/17 at 06:59; Status DC Potassium Chloride 70 meq/ Sodium Bicarbonate 12.5 meq/Lidocaine HCl 24 ml/ Parenteral Electrolytes 571.5 ml @ 571.5 mls/ hr 1X PERIOP ONCE IRR Last administered on 06/18/17 10:45; Start 06/18/17 at 06:00; Stop 06/18/17 at 06:59 ; Status DC Potassium Chloride 15 meq/ Sodium Bicarbonate 12.5 meq/Parenteral Electrolytes 520 ml @ 520 mls/hr 1X PERIOP ONCE IRR Last administered on 06/18/17 10:45; Start 06/18/17 at 06:00; Stop 06/18/17 at 06:59; Status DC Heparin Sodium (Porcine) 41667 unit/Ringer's Solution 1,020 ml @ 1,020 mls/hr 1X PERIOP ONCE IRR Last administered on 06/18/17 08:59; Start 06/18/17 at 06: 00; Stop 06/18/17 at 06:59; Status DC Ondansetron HCl (Zofran) 4 mg PRN Q6HRS PRN IV NAUSEA/VOMITING; Start 06/18/17 at 07:00; Stop 06/18/17 at 14:11; Status DC Fentanyl Citrate (Fentanyl 2ml Vial) 25 mcg PRN Q5MIN PRN IV MILD PAIN; Start 06/18/17 at 07:00; Stop 06/18/17 at 14:12; Status DC Fentanyl Citrate (Fentanyl 2ml Vial) 50 mcg PRN Q5MIN PRN IV MODERATE PAIN; Start 06/18/17 at 07:00; Stop 06/18/17 at 14:12; Status DC Morphine Sulfate 1 mg PRN Q10MIN PRN IV SEVERE PAIN; Start 06/18/17 at 07:00; Stop 06/18/17 at 14:11; Status DC Ringer's Solution 1,000 ml @ 30 mls/hr Q24H IV ; Start 06/18/17 at 07:00; Stop 06/18/17 at 14:12; Status DC Lidocaine HCl (Xylocaine-Mpf 1% Vial) 2 ml PRN 1X PRN ID IV START; Start at 07:00; Stop 06/18/17 at 14:12; Status DC Hydromorphone HCl (Dilaudid) 0.5 mg PRN Q10MIN PRN IV SEV PAIN, Second choice; Start 06/18/17 at 07:00; Stop 06/18/17 at 14:13; Status DC Prochlorperazine Edisylate (Compazine) 5 mg PACU PRN PRN IV NAUSEA, MRX1; Start 06/18/17 at 07:00; Stop 06/18/17 at 14:13; Status DC Cefazolin Sodium/ Dextrose 50 ml @ As Directed STK-MED ONCE IV ; Start 06/18/17 at 06:27; Stop 06/18/17 at 06:28; Status DC Vancomycin HCl (Vanco) 10 gm STK-MED ONCE .ROUTE Last administered on 08:59; Start 06/18/17 at 06:24; Stop 06/18/17 at 07:24; Status DC Cellulose 1 each STK-MED ONCE .ROUTE Last administered on 06/18/17 08:59; Start 06/18/17 at 06:24; Stop 06/18/17 at 07:24; Status DC Papaverine HCl 60 mg STK-MED ONCE .ROUTE Last administered on 06/18/17 08:59; Start 06/18/17 at 06:24; Stop 06/18/17 at 07:24; Status DC Aspirin (Aspirin) 300 mg STK-MED ONCE .ROUTE Last administered on 06/18/17 13: 21; Start 06/18/17 at 06:24; Stop 06/18/17 at 07:24; Status DC Sodium Chloride (Sodium Chloride) 50 ml STK-MED ONCE IJ Last administered on 08:59; Start 06/18/17 at 06:24; Stop 06/18/17 at 07:24; Status DC Cefazolin Sodium/ Dextrose 50 ml @ 100 mls/hr 1X ONCE IV Last administered on 06/18/17 12:33; Start 06/18/17 at 11:30; Stop 06/18/17 at 11:59; Status DC Sodium Chloride (Normal Saline Flush) 3 ml PRN Q12HR PRN IV AFTER MEDS AND BLOOD DRAWS; Start 06/18/17 at 13:30 Ringer's Solution 1,000 ml @ 30 mls/hr Q24H IV Last administered on 06/18/17 14:29; Start 06/18/17 at 13:22; Stop 06/19/17 at 12:48; Status DC Albumin Human 250 ml @ 60 mls/hr PRN Q4HRS PRN IV SEE I/O RECORD Last administered on 06/18/17 18:07; Start 06/18/17 at 13:30; Stop 06/19/17 at 12:48 ; Status DC Insulin Human Regular 150 unit/ Sodium Chloride 151.5 ml @ 0 mls/hr CONT PRN PRN IV SEE I/O RECORD Last administered on 06/18/17 16:34; Start 06/18/17 at 13 :30; Stop 06/19/17 at 12:48; Status DC Dextrose (Dextrose 50%-Water Syringe) 25 gm PRN Q15MIN PRN IV LOW BLOOD SUGAR; Start 06/18/17 at 13:30 Amiodarone HCl 150 mg/Dextrose 103 ml @ 200 mls/hr STAT IV Last administered on 06/18/17 14:47; Start 06/18/17 at 13:30; Stop 06/19/17 at 12:48; Status DC Amiodarone HCl 900 mg/Dextrose 518 ml @ 33.33 mls/ hr STAT IV Last administered on 06/18/17 14:47; Start 06/18/17 at 13:30; Stop 06/19/17 at 12:45 ; Status DC Amiodarone HCl (Cordarone) 400 mg BID PO ; Start 06/19/17 at 21:00; Stop at 21:00; Status DC Info 1 ea CONT PRN PRN MC SEE COMMENTS; Start 06/18/17 at 13:30 Info 1 ea CONT PRN PRN MC SEE COMMENTS; Start 06/18/17 at 13:30; Stop 06/19/17 at 12:48; Status DC Magnesium Sulfate/ Dextrose 100 ml @ 100 mls/hr PRN DAILY PRN IV FOR MAG < 2.2 Last administered on 06/19/17 10:36; Start 06/18/17 at 13:30 Famotidine (Pepcid) 20 mg BID IVP Last administered on 06/18/17 20:41; Start 06/18/17 at 21:00; Stop 06/19/17 at 10:02; Status DC Ondansetron HCl (Zofran) 4 mg PRN Q4HRS PRN IV NAUSEA/VOMITING; Start 06/18/17 at 13:30 Morphine Sulfate 2 mg PRN Q1HR PRN IV PAIN Last administered on 06/19/17 02:09 ; Start 06/18/17 at 13:30 Acetaminophen (Tylenol) 650 mg PRN Q4HRS PRN PO MILD PAIN / TEMP; Start at 13:30 Meperidine HCl (Demerol) 12.5 mg PRN Q15MIN PRN IV SHIVERING Last administered on 06/18/17 14:28; Start 06/18/17 at 13:30; Stop 06/19/17 at 13:22; Status DC Senna/Docusate Sodium (Senna Plus) 1 tab BID PO Last administered on 06/21/17 10:12; Start 06/18/17 at 21:00 Bisacodyl (Dulcolax Supp) 10 mg PRN DAILY PRN VT NO BOWEL MOVEMENT; Start 06/18 at 13:30 Aspirin (Ecotrin) 325 mg DAILYWBKFT PO Last administered on 06/21/17 10:06; Start 06/19/17 at 08:00 Aspirin (Aspirin) 300 mg PRN DAILY PRN VT IF UNABLE TO TAKE PO; Start 06/18/17 at 13:30 Albuterol Sulfate (Ventolin Neb Soln) 2.5 mg PRN Q4HRS PRN NEB SHORTNESS OF BREATH; Start 06/18/17 at 13:30 Metoprolol Tartrate (Lopressor) 25 mg BID PO Last administered on 06/21/17 10: 08; Start 06/19/17 at 09:00 Nicardipine HCl 50 mg/Sodium Chloride 270 ml @ 0 mls/hr CONT PRN PRN IV PER PROTOCOL; Start 06/18/17 at 13:30; Stop 06/19/17 at 12:48; Status DC Oxycodone/ Acetaminophen (Percocet 5/325) 1 tab PRN Q4HRS PRN PO MILD PAIN Last administered on 06/20/17 01:11; Start 06/18/17 at 13:30 Oxycodone/ Acetaminophen (Percocet 5/325) 2 tab PRN Q4HRS PRN PO MODERATE PAIN , SEVERE PAIN Last administered on 06/20/17 02:15; Start 06/18/17 at 13:30 Cefazolin Sodium 1 gm/Sodium Chloride 50 ml @ 100 mls/hr Q8H IV Last administered on 06/20/17 04:01; Start 06/18/17 at 20:00; Stop 06/20/17 at 04:29 ; Status DC Clevidipine 100 ml @ 0 mls/hr CONT PRN IV PER PROTOCOL Last administered on 14:28; Start 06/18/17 at 14:15; Stop 06/19/17 at 12:48; Status DC Propofol 100 ml @ 0 mls/hr CONT PRN IV SEE I/O RECORD Last administered on 06/18 14:47; Start 06/18/17 at 14:30; Stop 06/19/17 at 12:48; Status DC Potassium Chloride 50 ml @ 50 mls/hr Q1H IV Last administered on 06/18/17 17: 42; Start 06/18/17 at 16:15; Stop 06/18/17 at 18:14; Status DC Famotidine (Pepcid) 20 mg BID PO Last administered on 06/21/17 10:07; Start at 10:30 Amiodarone HCl (Cordarone) 200 mg BID PO Last administered on 06/21/17t 10:05; Start 06/19/17 at 13:00 Sennosides (Senna) 8.6 mg PRN BID PRN PO CONSTIPATION; Start 06/21/17 at 08:45 Heparin Sodium (Porcine) 30,000 unit STK-MED ONCE .ROUTE ; Start 06/18/17 at 08: 24; Stop 06/21/17 at 09:45; Status DC Midazolam HCl (Versed) 5 mg STK-MED ONCE .ROUTE ; Start 06/18/17 at 09:04; Stop 06/21/17 at 09:45; Status DC Heparin Sodium (Porcine) 30,000 unit STK-MED ONCE .ROUTE ; Start 06/18/17 at 09: 39; Stop 06/21/17 at 09:45; Status DC Heparin Sodium (Porcine) 30,000 unit STK-MED ONCE .ROUTE ; Start 06/18/17 at 09: 40; Stop 06/21/17 at 09:45; Status DC Lidocaine HCl (Lidocaine Pf 2% Vial) 5 ml STK-MED ONCE .ROUTE ; Start 06/18/17 at 09:41; Stop 06/21/17 at 09:45; Status DC Phenylephrine HCl (Arthur-Synephrine Inj) 10 mg STK-MED ONCE .ROUTE ; Start at 09:41; Stop 06/21/17 at 09:45; Status DC Etomidate (Amidate) 20 mg STK-MED ONCE IV ; Start 06/18/17 at 09:41; Stop at 09:45; Status DC Ephedrine Sulfate (Akovaz) 50 mg STK-MED ONCE .ROUTE ; Start 06/18/17 at 09:41; Stop 06/21/17 at 09:45; Status DC Aminocaproic Acid (Amicar) 5,000 mg STK-MED ONCE IV ; Start 06/18/17 at 09:41; Stop 06/21/17 at 09:45; Status DC Rocuronium [place] (Zemuron) 100 mg STK-MED ONCE .ROUTE ; Start 06/18/17 at 09: 42; Stop 06/21/17 at 09:45; Status DC Sufentanil Citrate (Sufenta) 100 mcg STK-MED ONCE .ROUTE ; Start 06/18/17 at 09: 42; Stop 06/21/17 at 09:45; Status DC Midazolam HCl (Versed) 2 mg STK-MED ONCE .ROUTE ; Start 06/18/17 at 09:42; Stop 06/21/17 at 09:45; Status DC Protamine Sulfate 50 mg STK-MED ONCE IV ; Start 06/18/17 at 11:58; Stop at 09:45; Status DC Protamine Sulfate 250 mg STK-MED ONCE IV ; Start 06/18/17 at 11:58; Stop at 09:45; Status DC Lidocaine HCl (Lidocaine Pf 2% Vial) 5 ml STK-MED ONCE .ROUTE ; Start 06/18/17 at 12:19; Stop 06/21/17 at 09:45; Status DC Magnesium Sulfate 5 gm STK-MED ONCE .ROUTE ; Start 06/18/17 at 12:19; Stop 06/21 at 09:45; Status DC Mannitol (Mannitol) 12.5 g STK-MED ONCE .ROUTE ; Start 06/18/17 at 12:19; Stop 06/21/17 at 09:45; Status DC Albumin Human 200 ml @ As Directed STK-MED ONCE IV ; Start 06/18/17 at 12:19; Stop 06/21/17 at 09:45; Status DC Calcium Chloride 1,000 mg STK-MED ONCE IV ; Start 06/18/17 at 12:19; Stop at 09:45; Status DC Sodium Bicarbonate 50 meq STK-MED ONCE .ROUTE ; Start 06/18/17 at 12:20; Stop 06/21/17 at 09:45; Status DC Fentanyl Citrate (Fentanyl 2ml Vial) 100 mcg STK-MED ONCE .ROUTE ; Start at 13:01; Stop 06/21/17 at 09:46; Status DC Neostigmine Methylsulfate (Bloxiverz) 10 mg STK-MED ONCE .ROUTE ; Start at 13:58; Stop 06/21/17 at 09:46; Status DC Glycopyrrolate (Robinul) 1 mg STK-MED ONCE .ROUTE ; Start 06/18/17 at 13:58; Stop 06/21/17 at 09:46; Status DC Docusate Sodium (Colace) 100 mg BID PO ; Start 06/21/17 at 10:45 Polyethylene Glycol (miraLAX PACKET) 17 gm DAILY PO ; Start 06/21/17 at 10:45 Magnesium Hydroxide (Milk Of Magnesia) 2,400 mg PRN DAILY PRN PO CONSTIPATION; Start 06/21/17 at 10:45 Magnesium Hydroxide (Milk Of Magnesia) 2,400 mg 1X ONCE PO ; Start 06/21/17 at 10:45; Stop 06/21/17 at 10:46; Status DC Active Scripts Active Reported [none] Vitals/I & O Vital Sign - Last 24 Hours 06/20/17 06/20/17 06/20/17 06/20/17 11:00 15:00 19:11 20:15 Temp 97.8 97.8 99.8 97.8 97.8 99.8 Pulse 82 82 83 Resp 20 20 16 B/P (MAP) 102/63 (76) 127/82 (97) 122/72 (89) Pulse Ox 99 91 96 O2 Delivery Nasal Cannula Nasal Cannula Nasal Cannula Nasal Cannula O2 Flow Rate 2.0 2.0 2.0 2.0 06/20/17 06/20/17 06/20/17 06/21/17 20:20 20:21 22:53 03:37 Temp 100.4 99.9 100.4 99.9 Pulse 83 83 84 86 Resp 16 16 B/P (MAP) 122/72 122/72 104/66 (79) 113/69 (84) Pulse Ox 92 95 O2 Delivery Nasal Cannula Nasal Cannula O2 Flow Rate 2.0 2.0 06/21/17 06/21/17 06/21/17 06/21/17 07:00 07:00 10:05 10:08 Temp 98.9 98.9 Pulse 86 86 86 Resp 22 B/P (MAP) 116/68 (84) 116/68 116/68 Pulse Ox 93 O2 Delivery Room Air ONIEL COUGHLIN MD Jun 21, 2017 10:54
[2017-06-21] MEDS: DOCUSATE SODIUM 100 MG CAPSULE. PO SCH ×2 (14:02→20:54)
[2017-06-21] MEDS ORDERED: METO25TA4 PO (14:08)
[2017-06-21] MEDS ORDERED: ASPI325T11 PO (14:08)
[2017-06-21] MEDS ORDERED: OXYC1TAB7 PO (14:40)
--- NOTE | 2017-06-21 16:57 | PDOC ---
PROGRESS NOTES Subjective Subjective The patient has been ambulating and feels fine. No new complaints. Objective Objective Vital Signs Date Time Temp Pulse Resp B/P (MAP) Pulse Ox O2 Delivery O2 Flow Rate FiO2 06/21/17 16:13 98.0 86 19 113/66 (82) 90 Room Air 98.0 06/21/17 15:00 2.0 Intake and Output 06/22/17 07:00 Output Total 100 ml Balance -100 ml Output Urine Total 100 ml Physical Exam Physical Exam No significant changes in cardiac exam Assessment Assessment Patient stable. Home soon. Problems Medical Problems: (1) Chest pain Status: Acute (2) Shortness of breath Status: Acute Comment Review of Relevant I have reviewed the following items cheatn (where applicable) has been applied. Labs Laboratory Tests Test 06/20/17 05:55 White Blood Count 13.9 x10^3/uL (4.0-11.0) Red Blood Count 3.91 x10^6/uL (4.30-5.70) Hemoglobin 13.0 g/dL (13.0-17.5) Hematocrit 37.5 % (39.0-53.0) Mean Corpuscular Volume 96 fL (79-100) Mean Corpuscular Hemoglobin 33 pg (25-35) Mean Corpuscular Hemoglobin Concent 35 g/dL (31-37) Red Cell Distribution Width 12.6 % (11.5-14.5) Platelet Count 162 x10^3/uL (140-400) Neutrophils (%) (Auto) 80 % (31-73) Lymphocytes (%) (Auto) 6 % (24-48) Monocytes (%) (Auto) 14 % (0-9) Eosinophils (%) (Auto) 0 % (0-3) Basophils (%) (Auto) 0 % (0-3) Neutrophils # (Auto) 11.1 x10^3uL (1.8-7.7) Lymphocytes # (Auto) 0.8 x10^3/uL (1.0-4.8) Monocytes # (Auto) 2.0 x10^3/uL (0.0-1.1) Eosinophils # (Auto) 0.0 x10^3/uL (0.0-0.7) Basophils # (Auto) 0.0 x10^3/uL (0.0-0.2) Segmented Neutrophils % 66 % (35-66) Band Neutrophils % 16 % (0-9) Lymphocytes % 11 % (24-48) Monocytes % 7 % (0-10) Platelet Estimate Adequate (ADEQUATE) Sodium Level 135 mmol/L (136-145) Potassium Level 4.2 mmol/L (3.5-5.1) Chloride Level 101 mmol/L (98-107) Carbon Dioxide Level 26 mmol/L (21-32) Anion Gap 8 (6-14) Blood Urea Nitrogen 9 mg/dL (8-26) Creatinine 0.9 mg/dL (0.7-1.3) Estimated GFR (Cockcroft-Gault) 102.5 Glucose Level 107 mg/dL (70-99) Calcium Level 9.3 mg/dL (8.5-10.1) Phosphorus Level 2.9 mg/dL (2.6-4.7) Albumin 3.5 g/dL (3.4-5.0) Medications Current Medications Ondansetron HCl (Zofran) 4 mg PRN Q8HRS PRN IV NAUSEA/VOMITING; Start 06/08/17 at 16:45; Stop 06/09/17 at 14:42; Status DC Morphine Sulfate 2 mg PRN Q2HR PRN IV PAIN; Start 06/08/17 at 16:45; Stop 06/09 at 14:42; Status DC Acetaminophen (Tylenol) 650 mg PRN Q6HRS PRN PO FEVER; Start 06/08/17 at 17:45 ; Stop 06/18/17 at 14:09; Status DC Ondansetron HCl (Zofran) 4 mg PRN Q6HRS PRN IV NAUSEA/VOMITING; Start 06/08/17 at 17:45; Stop 06/18/17 at 14:11; Status DC Morphine Sulfate 2 mg PRN Q2HR PRN IV PAIN; Start 06/08/17 at 17:45; Stop 06/18 at 14:11; Status DC Tramadol HCl (Ultram) 50 mg PRN Q6HRS PRN PO PAIN MILD TO MOD; Start 06/08/17 at 17:45 Hydralazine HCl (Apresoline) 10 mg PRN Q4HRS PRN IVP ELEVATED BP, SEE COMMENTS ; Start 06/08/17 at 17:45 Docusate Sodium (Colace) 100 mg PRN DAILY PRN PO CONSTIPATION; Start 06/08/17 at 17:45; Stop 06/21/17 at 14:11; Status DC Albuterol Sulfate (Ventolin Neb Soln) 2.5 mg PRN Q4HRS PRN NEB SHORTNESS OF BREATH; Start 06/08/17 at 17:45; Stop 06/18/17 at 14:10; Status DC Enoxaparin Sodium (Lovenox 40mg Syringe) 40 mg Q24H SQ Last administered on 19:41; Start 06/08/17 at 18:00; Stop 06/14/17 at 14:20; Status DC Folic Acid (Folic Acid) 1 mg DAILY PO Last administered on 06/21/17 10:06; Start 06/08/17 at 18:00 Thiamine Mononitrate (Vitamin B-1) 100 mg DAILY PO Last administered on 10:05; Start 06/08/17 at 18:00 Lorazepam (Ativan) 2 mg PRN Q4HRS PRN IV ANXIETY / AGITATION Last administered on 06/09/17 00:49; Start 06/08/17 at 17:45 Lisinopril (Prinivil) 40 mg DAILY PO ; Start 06/08/17 at 18:00; Stop 06/08/17 at 18:45; Status DC Lisinopril (Prinivil) 20 mg DAILY PO ; Start 06/09/17 at 09:00; Stop 06/11/17 at 17:13; Status DC Zolpidem Tartrate (Ambien) 5 mg PRN QHS PRN PO INSOMNIA Last administered on 22:22; Start 06/08/17 at 20:45 Vitamin B Complex (Folbic Tablet) 1 tab DAILY PO Last administered on 10:05; Start 06/09/17 at 10:30 Cyanocobalamin (Vitamin B-12) 1,000 mcg 1X ONCE IM Last administered on 13:46; Start 06/09/17 at 10:45; Stop 06/09/17 at 10:46; Status DC Regadenoson (Lexiscan) 0.4 mg 1X ONCE IV ; Start 06/10/17 at 08:45; Stop at 08:46; Status DC Regadenoson (Lexiscan) 0.4 mg STK-MED ONCE IV ; Start 06/10/17 at 09:24; Stop at 09:25; Status DC Regadenoson (Lexiscan) 0.4 mg STK-MED ONCE IV ; Start 06/10/17 at 09:24; Stop at 10:04; Status DC Iohexol (Omnipaque 300 Mg/ml) 100 ml STK-MED ONCE .ROUTE ; Start 06/11/17 at 12: 54; Stop 06/11/17 at 12:55; Status DC Lidocaine HCl 20 ml STK-MED ONCE .ROUTE ; Start 06/11/17 at 12:55; Stop at 12:56; Status DC Heparin Sodium/ Sodium Chloride 500 ml @ As Directed STK-MED ONCE .ROUTE ; Start 06/11/17 at 12:55; Stop 06/11/17 at 12:56; Status DC Midazolam HCl (Versed) 2 mg STK-MED ONCE .ROUTE ; Start 06/11/17 at 13:23; Stop 06/11/17 at 13:24; Status DC Fentanyl Citrate (Fentanyl 2ml Vial) 100 mcg STK-MED ONCE .ROUTE ; Start at 13:23; Stop 06/11/17 at 13:24; Status DC Heparin Sodium/ Sodium Chloride 1,000 unit 1X ONCE IART Last administered on 13:52; Start 06/11/17 at 13:45; Stop 06/11/17 at 13:46; Status DC Midazolam HCl (Versed) 2 mg 1X ONCE IV Last administered on 06/11/17 13:52; Start 06/11/17 at 13:45; Stop 06/11/17 at 13:46; Status DC Fentanyl Citrate (Fentanyl 2ml Vial) 100 mcg 1X ONCE IV Last administered on 13:52; Start 06/11/17 at 13:45; Stop 06/11/17 at 13:46; Status DC Iohexol (Omnipaque 300 Mg/ml) 100 ml 1X ONCE IART Last administered on 13:51; Start 06/11/17 at 13:45; Stop 06/11/17 at 13:46; Status DC Lidocaine HCl 20 ml 1X ONCE IJ Last administered on 06/11/17 13:51; Start at 13:45; Stop 06/11/17 at 13:46; Status DC Metoprolol Tartrate (Lopressor) 25 mg BID PO Last administered on 06/17/17 22: 09; Start 06/11/17 at 21:00; Stop 06/18/17 at 14:10; Status DC Iohexol (Omnipaque 300 Mg/ml) 75 ml 1X ONCE IV Last administered on 06/12/17 08:12; Start 06/12/17 at 08:30; Stop 06/12/17 at 08:31; Status DC Info (Do NOT chart on this entry -- for MONITORING) 1 each PRN DAILY PRN MC SEE COMMENTS; Start 06/12/17 at 08:15; Stop 06/14/17 at 08:14; Status DC Lidocaine HCl (Xylocaine 2% Topical 5gm Tube) 1 grant 1X ONCE TP ; Start at 14:00; Stop 06/12/17 at 14:01; Status DC Lidocaine HCl (Viscous Lidocaine) 15 ml 1X ONCE MM ; Start 06/12/17 at 14:00; Stop 06/12/17 at 14:01; Status Cancel Benzocaine (Hurricaine One) 3 spray 1X ONCE MM ; Start 06/12/17 at 14:00; Stop 06/12/17 at 14:01; Status DC Lidocaine HCl (Viscous Lidocaine) 15 ml 1X PRN PRN MM FOR REBEKAH Last administered on 06/14/17 13:14; Start 06/14/17 at 09:00; Stop 06/14/17 at 18:00 ; Status DC Benzocaine (Hurricaine One) 3 spray 1X ONCE MM Last administered on 06/14/17 13:14; Start 06/14/17 at 07:00; Stop 06/14/17 at 07:01; Status DC Lidocaine HCl (Xylocaine 2% Topical 5gm Tube) 1 grant 1X ONCE TP Last administered on 06/14/17 13:17; Start 06/14/17 at 07:00; Stop 06/14/17 at 07:01 ; Status DC Lidocaine HCl (Xylocaine 2% Topical 30gm Tube) 30 grant STK-MED ONCE TP ; Start at 10:57; Stop 06/14/17 at 10:58; Status DC Ondansetron HCl (Zofran) 4 mg PRN Q6HRS PRN IV NAUSEA/VOMITING; Start 06/14/17 at 11:45; Stop 06/15/17 at 11:44; Status DC Fentanyl Citrate (Fentanyl 2ml Vial) 25 mcg PRN Q5MIN PRN IV MILD PAIN; Start 06/14/17 at 11:45; Stop 06/15/17 at 11:44; Status DC Fentanyl Citrate (Fentanyl 2ml Vial) 50 mcg PRN Q5MIN PRN IV MODERATE PAIN; Start 06/14/17 at 11:45; Stop 06/15/17 at 11:44; Status DC Morphine Sulfate 1 mg PRN Q10MIN PRN IV SEVERE PAIN; Start 06/14/17 at 11:45; Stop 06/15/17 at 11:44; Status DC Ringer's Solution 1,000 ml @ 30 mls/hr Q24H IV Last administered on 06/14/17t 11:31; Start 06/14/17 at 11:31; Stop 06/14/17 at 23:30; Status DC Lidocaine HCl (Xylocaine-Mpf 1% Vial) 2 ml 1X PRN PRN ID IV START; Start at 11:45; Stop 06/15/17 at 11:44; Status DC Hydromorphone HCl (Dilaudid) 0.5 mg PRN Q10MIN PRN IV SEV PAIN, Second choice; Start 06/14/17 at 11:45; Stop 06/15/17 at 11:44; Status DC Prochlorperazine Edisylate (Compazine) 5 mg PACU PRN PRN IV NAUSEA, MRX1; Start 06/14/17 at 11:45; Stop 06/15/17 at 11:44; Status DC Propofol 20 ml @ As Directed STK-MED ONCE IV ; Start 06/14/17 at 13:32; Stop at 13:33; Status DC Ondansetron HCl (Zofran) 4 mg PRN Q6HRS PRN IV NAUSEA/VOMITING; Start 06/15/17 at 07:00; Stop 06/16/17 at 06:59; Status DC Fentanyl Citrate (Fentanyl 2ml Vial) 25 mcg PRN Q5MIN PRN IV MILD PAIN; Start 06/15/17 at 07:00; Stop 06/16/17 at 06:59; Status DC Fentanyl Citrate (Fentanyl 2ml Vial) 50 mcg PRN Q5MIN PRN IV MODERATE PAIN; Start 06/15/17 at 07:00; Stop 06/16/17 at 06:59; Status DC Morphine Sulfate 1 mg PRN Q10MIN PRN IV SEVERE PAIN; Start 06/15/17 at 07:00; Stop 06/16/17 at 06:59; Status DC Ringer's Solution 1,000 ml @ 30 mls/hr Q24H IV ; Start 06/15/17 at 07:00; Stop 06/15/17 at 18:59; Status DC Lidocaine HCl (Xylocaine-Mpf 1% Vial) 2 ml PRN 1X PRN ID IV START; Start at 07:00; Stop 06/16/17 at 06:59; Status DC Hydromorphone HCl (Dilaudid) 0.5 mg PRN Q10MIN PRN IV SEV PAIN, Second choice; Start 06/15/17 at 07:00; Stop 06/16/17 at 06:59; Status DC Prochlorperazine Edisylate (Compazine) 5 mg PACU PRN PRN IV NAUSEA, MRX1; Start 06/15/17 at 07:00; Stop 06/16/17 at 06:59; Status DC Potassium Chloride 70 meq/ Sodium Bicarbonate 12.5 meq/Lidocaine HCl 24 ml/ Parenteral Electrolytes 571.5 ml @ 571.5 mls/ hr 1X PERIOP ONCE IRR ; Start at 06:00; Stop 06/15/17 at 06:59; Status DC Potassium Chloride 15 meq/ Sodium Bicarbonate 12.5 meq/Parenteral Electrolytes 520 ml @ 520 mls/hr 1X PERIOP ONCE IRR ; Start 06/15/17 at 06:00; Stop at 06:59; Status DC Heparin Sodium (Porcine) 05751 unit/Ringer's Solution 1,020 ml @ 1,020 mls/hr 1X PERIOP ONCE IRR ; Start 06/15/17 at 06:00; Stop 06/15/17 at 06:59; Status DC Etomidate (Amidate) 20 mg STK-MED ONCE IV ; Start 06/15/17 at 06:14; Stop at 06:15; Status DC Lidocaine HCl (Lidocaine Pf 2% Vial) 5 ml STK-MED ONCE .ROUTE ; Start 06/15/17 at 06:14; Stop 06/15/17 at 06:15; Status DC Ephedrine Sulfate 50 mg STK-MED ONCE IV ; Start 06/15/17 at 06:14; Stop at 06:15; Status DC Phenylephrine HCl (Arthur-Synephrine Inj) 10 mg STK-MED ONCE .ROUTE ; Start at 06:15; Stop 06/15/17 at 06:16; Status DC Rocuronium Council (Zemuron) 100 mg STK-MED ONCE .ROUTE ; Start 06/15/17 at 06: 15; Stop 06/15/17 at 06:16; Status DC Heparin Sodium (Porcine) 30,000 unit STK-MED ONCE .ROUTE ; Start 06/15/17 at 06: 15; Stop 06/15/17 at 06:16; Status DC Aminocaproic Acid (Amicar) 5,000 mg STK-MED ONCE IV ; Start 06/15/17 at 06:15; Stop 06/15/17 at 06:16; Status DC Nitroglycerin/ Dextrose 250 ml @ As Directed STK-MED ONCE IV ; Start 06/15/17 at 06:15; Stop 06/15/17 at 06:16; Status DC Sufentanil Citrate (Sufenta) 100 mcg STK-MED ONCE .ROUTE ; Start 06/15/17 at 06: 17; Stop 06/15/17 at 06:18; Status DC Midazolam HCl (Versed) 2 mg STK-MED ONCE .ROUTE ; Start 06/15/17 at 06:20; Stop 06/15/17 at 06:21; Status DC Cefazolin Sodium/ Dextrose 50 ml @ 100 mls/hr 1X PREOP ONCE IV ; Start at 07:45; Stop 06/15/17 at 08:14; Status DC Cefazolin Sodium 1 gm/Sodium Chloride 500 ml @ 500 mls/hr 1X PERIOP ONCE IRR Last administered on 06/18/17t 08:59; Start 06/18/17 at 06:00; Stop 06/18/17 at 06:59; Status DC Potassium Chloride 70 meq/ Sodium Bicarbonate 12.5 meq/Lidocaine HCl 24 ml/ Parenteral Electrolytes 571.5 ml @ 571.5 mls/ hr 1X PERIOP ONCE IRR Last administered on 06/18/17 10:45; Start 06/18/17 at 06:00; Stop 06/18/17 at 06:59 ; Status DC Potassium Chloride 15 meq/ Sodium Bicarbonate 12.5 meq/Parenteral Electrolytes 520 ml @ 520 mls/hr 1X PERIOP ONCE IRR Last administered on 06/18/17 10:45; Start 06/18/17 at 06:00; Stop 06/18/17 at 06:59; Status DC Heparin Sodium (Porcine) 56345 unit/Ringer's Solution 1,020 ml @ 1,020 mls/hr 1X PERIOP ONCE IRR Last administered on 06/18/17 08:59; Start 06/18/17 at 06: 00; Stop 06/18/17 at 06:59; Status DC Ondansetron HCl (Zofran) 4 mg PRN Q6HRS PRN IV NAUSEA/VOMITING; Start 06/18/17 at 07:00; Stop 06/18/17 at 14:11; Status DC Fentanyl Citrate (Fentanyl 2ml Vial) 25 mcg PRN Q5MIN PRN IV MILD PAIN; Start 06/18/17 at 07:00; Stop 06/18/17 at 14:12; Status DC Fentanyl Citrate (Fentanyl 2ml Vial) 50 mcg PRN Q5MIN PRN IV MODERATE PAIN; Start 06/18/17 at 07:00; Stop 06/18/17 at 14:12; Status DC Morphine Sulfate 1 mg PRN Q10MIN PRN IV SEVERE PAIN; Start 06/18/17 at 07:00; Stop 06/18/17 at 14:11; Status DC Ringer's Solution 1,000 ml @ 30 mls/hr Q24H IV ; Start 06/18/17 at 07:00; Stop 06/18/17 at 14:12; Status DC Lidocaine HCl (Xylocaine-Mpf 1% Vial) 2 ml PRN 1X PRN ID IV START; Start at 07:00; Stop 06/18/17 at 14:12; Status DC Hydromorphone HCl (Dilaudid) 0.5 mg PRN Q10MIN PRN IV SEV PAIN, Second choice; Start 06/18/17 at 07:00; Stop 06/18/17 at 14:13; Status DC Prochlorperazine Edisylate (Compazine) 5 mg PACU PRN PRN IV NAUSEA, MRX1; Start 06/18/17 at 07:00; Stop 06/18/17 at 14:13; Status DC Cefazolin Sodium/ Dextrose 50 ml @ As Directed STK-MED ONCE IV ; Start 06/18/17 at 06:27; Stop 06/18/17 at 06:28; Status DC Vancomycin HCl (Vanco) 10 gm STK-MED ONCE .ROUTE Last administered on 08:59; Start 06/18/17 at 06:24; Stop 06/18/17 at 07:24; Status DC Cellulose 1 each STK-MED ONCE .ROUTE Last administered on 06/18/17 08:59; Start 06/18/17 at 06:24; Stop 06/18/17 at 07:24; Status DC Papaverine HCl 60 mg STK-MED ONCE .ROUTE Last administered on 06/18/17 08:59; Start 06/18/17 at 06:24; Stop 06/18/17 at 07:24; Status DC Aspirin (Aspirin) 300 mg STK-MED ONCE .ROUTE Last administered on 06/18/17 13: 21; Start 06/18/17 at 06:24; Stop 06/18/17 at 07:24; Status DC Sodium Chloride (Sodium Chloride) 50 ml STK-MED ONCE IJ Last administered on 08:59; Start 06/18/17 at 06:24; Stop 06/18/17 at 07:24; Status DC Cefazolin Sodium/ Dextrose 50 ml @ 100 mls/hr 1X ONCE IV Last administered on 06/18/17 12:33; Start 06/18/17 at 11:30; Stop 06/18/17 at 11:59; Status DC Sodium Chloride (Normal Saline Flush) 3 ml PRN Q12HR PRN IV AFTER MEDS AND BLOOD DRAWS; Start 06/18/17 at 13:30; Stop 06/21/17 at 14:11; Status DC Ringer's Solution 1,000 ml @ 30 mls/hr Q24H IV Last administered on 06/18/17 14:29; Start 06/18/17 at 13:22; Stop 06/19/17 at 12:48; Status DC Albumin Human 250 ml @ 60 mls/hr PRN Q4HRS PRN IV SEE I/O RECORD Last administered on 06/18/17 18:07; Start 06/18/17 at 13:30; Stop 06/19/17 at 12:48 ; Status DC Insulin Human Regular 150 unit/ Sodium Chloride 151.5 ml @ 0 mls/hr CONT PRN PRN IV SEE I/O RECORD Last administered on 06/18/17 16:34; Start 06/18/17 at 13 :30; Stop 06/19/17 at 12:48; Status DC Dextrose (Dextrose 50%-Water Syringe) 25 gm PRN Q15MIN PRN IV LOW BLOOD SUGAR; Start 06/18/17 at 13:30; Stop 06/21/17 at 14:11; Status DC Amiodarone HCl 150 mg/Dextrose 103 ml @ 200 mls/hr STAT IV Last administered on 06/18/17 14:47; Start 06/18/17 at 13:30; Stop 06/19/17 at 12:48; Status DC Amiodarone HCl 900 mg/Dextrose 518 ml @ 33.33 mls/ hr STAT IV Last administered on 06/18/17 14:47; Start 06/18/17 at 13:30; Stop 06/19/17 at 12:45 ; Status DC Amiodarone HCl (Cordarone) 400 mg BID PO ; Start 06/19/17 at 21:00; Stop at 21:00; Status DC Info 1 ea CONT PRN PRN MC SEE COMMENTS; Start 06/18/17 at 13:30; Stop 06/21/17 at 14:11; Status DC Info 1 ea CONT PRN PRN MC SEE COMMENTS; Start 06/18/17 at 13:30; Stop 06/19/17 at 12:48; Status DC Magnesium Sulfate/ Dextrose 100 ml @ 100 mls/hr PRN DAILY PRN IV FOR MAG < 2.2 Last administered on 06/19/17 10:36; Start 06/18/17 at 13:30; Stop at 14:11; Status DC Famotidine (Pepcid) 20 mg BID IVP Last administered on 06/18/17 20:41; Start 06/18/17 at 21:00; Stop 06/19/17 at 10:02; Status DC Ondansetron HCl (Zofran) 4 mg PRN Q4HRS PRN IV NAUSEA/VOMITING; Start 06/18/17 at 13:30; Stop 06/21/17 at 14:11; Status DC Morphine Sulfate 2 mg PRN Q1HR PRN IV PAIN Last administered on 06/19/17 02:09 ; Start 06/18/17 at 13:30; Stop 06/21/17 at 14:11; Status DC Acetaminophen (Tylenol) 650 mg PRN Q4HRS PRN PO MILD PAIN / TEMP; Start at 13:30; Stop 06/21/17 at 14:11; Status DC Meperidine HCl (Demerol) 12.5 mg PRN Q15MIN PRN IV SHIVERING Last administered on 06/18/17 14:28; Start 06/18/17 at 13:30; Stop 06/19/17 at 13:22; Status DC Senna/Docusate Sodium (Senna Plus) 1 tab BID PO Last administered on 06/21/17 10:12; Start 06/18/17 at 21:00; Stop 06/21/17 at 14:11; Status DC Bisacodyl (Dulcolax Supp) 10 mg PRN DAILY PRN RI NO BOWEL MOVEMENT; Start 06/18 at 13:30; Stop 06/21/17 at 14:11; Status DC Aspirin (Ecotrin) 325 mg DAILYWBKFT PO Last administered on 06/21/17 10:06; Start 06/19/17 at 08:00; Stop 06/21/17 at 14:11; Status DC Aspirin (Aspirin) 300 mg PRN DAILY PRN RI IF UNABLE TO TAKE PO; Start 06/18/17 at 13:30; Stop 06/21/17 at 14:11; Status DC Albuterol Sulfate (Ventolin Neb Soln) 2.5 mg PRN Q4HRS PRN NEB SHORTNESS OF BREATH; Start 06/18/17 at 13:30; Stop 06/21/17 at 14:11; Status DC Metoprolol Tartrate (Lopressor) 25 mg BID PO Last administered on 06/21/17 10: 08; Start 06/19/17 at 09:00; Stop 06/21/17 at 14:11; Status DC Nicardipine HCl 50 mg/Sodium Chloride 270 ml @ 0 mls/hr CONT PRN PRN IV PER PROTOCOL; Start 06/18/17 at 13:30; Stop 06/19/17 at 12:48; Status DC Oxycodone/ Acetaminophen (Percocet 5/325) 1 tab PRN Q4HRS PRN PO MILD PAIN Last administered on 06/20/17 01:11; Start 06/18/17 at 13:30 Oxycodone/ Acetaminophen (Percocet 5/325) 2 tab PRN Q4HRS PRN PO MODERATE PAIN , SEVERE PAIN Last administered on 06/20/17 02:15; Start 06/18/17 at 13:30 Cefazolin Sodium 1 gm/Sodium Chloride 50 ml @ 100 mls/hr Q8H IV Last administered on 06/20/17 04:01; Start 06/18/17 at 20:00; Stop 06/20/17 at 04:29 ; Status DC Clevidipine 100 ml @ 0 mls/hr CONT PRN IV PER PROTOCOL Last administered on 14:28; Start 06/18/17 at 14:15; Stop 06/19/17 at 12:48; Status DC Propofol 100 ml @ 0 mls/hr CONT PRN IV SEE I/O RECORD Last administered on 06/18 14:47; Start 06/18/17 at 14:30; Stop 06/19/17 at 12:48; Status DC Potassium Chloride 50 ml @ 50 mls/hr Q1H IV Last administered on 06/18/17 17: 42; Start 06/18/17 at 16:15; Stop 06/18/17 at 18:14; Status DC Famotidine (Pepcid) 20 mg BID PO Last administered on 06/21/17 10:07; Start at 10:30 Amiodarone HCl (Cordarone) 200 mg BID PO Last administered on 06/21/17 10:05; Start 06/19/17 at 13:00 Sennosides (Senna) 8.6 mg PRN BID PRN PO CONSTIPATION; Start 06/21/17 at 08:45 ; Stop 06/21/17 at 14:11; Status DC Heparin Sodium (Porcine) 30,000 unit STK-MED ONCE .ROUTE ; Start 06/18/17 at 08: 24; Stop 06/21/17 at 09:45; Status DC Midazolam HCl (Versed) 5 mg STK-MED ONCE .ROUTE ; Start 06/18/17 at 09:04; Stop 06/21/17 at 09:45; Status DC Heparin Sodium (Porcine) 30,000 unit STK-MED ONCE .ROUTE ; Start 06/18/17 at 09: 39; Stop 06/21/17 at 09:45; Status DC Heparin Sodium (Porcine) 30,000 unit STK-MED ONCE .ROUTE ; Start 06/18/17 at 09: 40; Stop 06/21/17 at 09:45; Status DC Lidocaine HCl (Lidocaine Pf 2% Vial) 5 ml STK-MED ONCE .ROUTE ; Start 06/18/17 at 09:41; Stop 06/21/17 at 09:45; Status DC Phenylephrine HCl (Arthur-Synephrine Inj) 10 mg STK-MED ONCE .ROUTE ; Start at 09:41; Stop 06/21/17 at 09:45; Status DC Etomidate (Amidate) 20 mg STK-MED ONCE IV ; Start 06/18/17 at 09:41; Stop at 09:45; Status DC Ephedrine Sulfate (Akovaz) 50 mg STK-MED ONCE .ROUTE ; Start 06/18/17 at 09:41; Stop 06/21/17 at 09:45; Status DC Aminocaproic Acid (Amicar) 5,000 mg STK-MED ONCE IV ; Start 06/18/17 at 09:41; Stop 06/21/17 at 09:45; Status DC Rocuronium Council (Zemuron) 100 mg STK-MED ONCE .ROUTE ; Start 06/18/17 at 09: 42; Stop 06/21/17 at 09:45; Status DC Sufentanil Citrate (Sufenta) 100 mcg STK-MED ONCE .ROUTE ; Start 06/18/17 at 09: 42; Stop 06/21/17 at 09:45; Status DC Midazolam HCl (Versed) 2 mg STK-MED ONCE .ROUTE ; Start 06/18/17 at 09:42; Stop 06/21/17 at 09:45; Status DC Protamine Sulfate 50 mg STK-MED ONCE IV ; Start 06/18/17 at 11:58; Stop at 09:45; Status DC Protamine Sulfate 250 mg STK-MED ONCE IV ; Start 06/18/17 at 11:58; Stop at 09:45; Status DC Lidocaine HCl (Lidocaine Pf 2% Vial) 5 ml STK-MED ONCE .ROUTE ; Start 06/18/17 at 12:19; Stop 06/21/17 at 09:45; Status DC Magnesium Sulfate 5 gm STK-MED ONCE .ROUTE ; Start 06/18/17 at 12:19; Stop 06/21 at 09:45; Status DC Mannitol (Mannitol) 12.5 g STK-MED ONCE .ROUTE ; Start 06/18/17 at 12:19; Stop 06/21/17 at 09:45; Status DC Albumin Human 200 ml @ As Directed STK-MED ONCE IV ; Start 06/18/17 at 12:19; Stop 06/21/17 at 09:45; Status DC Calcium Chloride 1,000 mg STK-MED ONCE IV ; Start 06/18/17 at 12:19; Stop at 09:45; Status DC Sodium Bicarbonate 50 meq STK-MED ONCE .ROUTE ; Start 06/18/17 at 12:20; Stop 06/21/17 at 09:45; Status DC Fentanyl Citrate (Fentanyl 2ml Vial) 100 mcg STK-MED ONCE .ROUTE ; Start at 13:01; Stop 06/21/17 at 09:46; Status DC Neostigmine Methylsulfate (Bloxiverz) 10 mg STK-MED ONCE .ROUTE ; Start at 13:58; Stop 06/21/17 at 09:46; Status DC Glycopyrrolate (Robinul) 1 mg STK-MED ONCE .ROUTE ; Start 06/18/17 at 13:58; Stop 06/21/17 at 09:46; Status DC Docusate Sodium (Colace) 100 mg BID PO Last administered on 06/21/17t 14:02; Start 06/21/17 at 10:45 Polyethylene Glycol (miraLAX PACKET) 17 gm DAILY PO ; Start 06/21/17 at 10:45 Magnesium Hydroxide (Milk Of Magnesia) 2,400 mg PRN DAILY PRN PO CONSTIPATION; Start 06/21/17 at 10:45 Magnesium Hydroxide (Milk Of Magnesia) 2,400 mg 1X ONCE PO Last administered on 06/21/17t 14:02; Start 06/21/17 at 10:45; Stop 06/21/17 at 10:46; Status DC Active Scripts Active Oxycodone-Acetaminophen 5-325 (Oxycodone Hcl/Acetaminophen) 1 Each Tablet 1-2 Tab PO PRN Q4-6HRS PRN Metoprolol Tartrate 25 Mg Tablet 25 Mg PO BID Aspirin Ec (Aspirin) 325 Mg Tablet.dr 325 Mg PO DAILYWBKFT 30 Days Reported [none] Vitals/I & O Vital Sign - Last 24 Hours 06/20/17 06/20/17 06/20/17 06/20/17 19:11 20:15 20:20 20:21 Temp 99.8 99.8 Pulse 83 83 83 Resp 16 B/P (MAP) 122/72 (89) 122/72 122/72 Pulse Ox 96 O2 Delivery Nasal Cannula Nasal Cannula O2 Flow Rate 2.0 2.0 06/20/17 06/21/17 06/21/17 06/21/17 22:53 03:37 07:00 07:00 Temp 100.4 99.9 98.9 100.4 99.9 98.9 Pulse 84 86 86 Resp 16 16 22 B/P (MAP) 104/66 (79) 113/69 (84) 116/68 (84) Pulse Ox 92 95 93 O2 Delivery Nasal Cannula Nasal Cannula Room Air O2 Flow Rate 2.0 2.0 06/21/17 06/21/17 06/21/17 06/21/17 10:05 10:08 11:00 14:09 Temp 99.6 99.6 Pulse 86 86 82 Resp 18 B/P (MAP) 116/68 116/68 104/56 (72) Pulse Ox 92 94 O2 Delivery Nasal Cannula Room Air O2 Flow Rate 2.0 06/21/17 06/21/17 15:00 16:13 Temp 98.0 98.0 98.0 98.0 Pulse 86 86 Resp 19 19 B/P (MAP) 113/66 (82) 113/66 (82) Pulse Ox 90 90 O2 Delivery Nasal Cannula Room Air O2 Flow Rate 2.0 Intake and Output 06/21/17 06/21/17 06/22/17 15:00 23:00 07:00 Output Total 100 ml Balance -100 ml RICH JEREZ MD Jun 21, 2017 16:57
[2017-06-22 03:03] VITALS: BP 103/60
[2017-06-22 07:00] VITALS: BP 105/63
[2017-06-22] MEDS: POLYETHYLENE GLYCOL 3350 17 GM PACKET. PO SCH (09:00)
[2017-06-22] MEDS: VITAMIN B12,B9,B6 COMPLEX 1 TABLET. PO SCH (10:11)
[2017-06-22] MEDS: FOLIC ACID 1 MG TABLET. PO SCH (10:11)
[2017-06-22] MEDS: FAMOTIDINE 20 MG TABLET. PO SCH (10:11)
[2017-06-22] MEDS: DOCUSATE SODIUM 100 MG CAPSULE. PO SCH (10:11)
[2017-06-22] MEDS: AMIODARONE HCL 200 MG TABLET. PO SCH (10:11)
[2017-06-22] MEDS: THIAMINE 100 MG TABLET. PO SCH (10:13)
[2017-06-22 11:00] VITALS: BP 109/62
--- NOTE | 2017-06-22 11:52 | PDOC3 ---
Discharge Summary Visit Information Date of Admission: Jun 08, 2017 Date of Discharge: Jun 22, 2017 Admitting Diagnosis Comment: s.p CABG POD # 4 (06/18/17) Aneurysm, Cardiac by REBEKAH exertional dyspnea with CHF likely chest pain with dyspnea chronic combined systolic and diastolic CHF,, est EF 40% on MPI H/O CAD 2013 with 1 stent at obtuse marginal branch HTN poor control, noncompliant with emds alcohol abuse d/o, prior tobaccoism leg weakness, unsteady gait and peripheral neuropathy Final Diagnosis Problems Medical Problems: (1) Chest pain Status: Acute (2) Shortness of breath Status: Acute Brief Hospital Course Allergies Allergies Coded Allergies Type Severity Reaction Last Updated Verified No Known Drug Allergies 06/18/17 No Vital Signs Vital Signs Date Time Temp Pulse Resp B/P (MAP) Pulse Ox O2 Delivery O2 Flow Rate FiO2 06/22/17 10:11 93 105/63 06/22/17 07:00 100.0 19 92 Nasal Cannula 2.0 100.0 Brief Hospital Course Mr. Sullivan is a 67 old AA male who sdtayed over 2 weeks with us bec of some findings of possible cradiac aneurysm on top of needing CABG. HE had to undergo viability studies and that took days bec of some technical issues, In any case, he came in for either CP or SOA , needed CABG, underwent the proc with no post op complications, No PT needs, Ready for home with new meds goven namely, ASA, 325 amio 200PO qD, L:ipitor 10, percocet, trazadone and some FMLA paperwork c.o [employer]CV[employer] Pt seen and examined Dw whole family at bedside and ORQUIDEA Bain Time 31 mins Discharge Information Condition at Discharge: Improved, Stable Disposition/Orders: D/C to Home Scheduled Aspirin (Aspirin Ec), 325 MG PO [id number] Metoprolol Tartrate (Metoprolol Tartrate), 25 MG PO BID Scheduled PRN Oxycodone Hcl/Acetaminophen (Oxycodone-Acetaminophen 5-325), 1-2 TAB PO PRN Q4- 6HRS PRN for MODERATE PAIN, SEVERE PAIN Miscellaneous Medications [none], (Reported) ONIEL COUGHLIN MD Jun 22, 2017 11:52
[2017-06-22] MEDS ORDERED: AMIO200T2 PO (13:05)
[2017-06-22] MEDS ORDERED: ATOR10TA60 PO (13:06)
--- NOTE | 2017-06-22 14:17 | PDOC ---
Progress Note Subjective Subjective Doing very well. On room air. Normotensive and in SR. 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 On room air. Normotensive and in SR. Had BM Plan Plan of Care Stop Amiodarone ASA, statin, b suleiman D/c home today F/u in clinic in 3 weeks CORY CALLAWAY MD Jun 22, 2017 14:17
== END 2017-06-22 14:00 | disposition home or self-care (01) | DRG 234 ==
LOC: ER 13:41 → 5 SOUTH 15:32 → 2 NORTH 06-10 15:28 → 1 WEST ICU 06-18 12:25 → 2 NORTH 06-19 18:58
PROVIDERS: ADMIT Internal Medicine; ATTEND Internal Medicine
PROC: B2111ZZ Fluoroscopy of Multiple Coronary Arteries using Low Osmolar Contrast (ICD-10-PCS; principal; 2017-06-11)
PROC: B2151ZZ Fluoroscopy of Left Heart using Low Osmolar Contrast (ICD-10-PCS; 2017-06-11)
PROC: 4A023N7 Measurement of Cardiac Sampling and Pressure, Left Heart, Percutaneous Approach (ICD-10-PCS; 2017-06-11)
PROC: B24BZZ4 Ultrasonography of Heart with Aorta, Transesophageal (ICD-10-PCS; 2017-06-14)
PROC: 021009W Bypass Coronary Artery, One Artery from Aorta with Autologous Venous Tissue, Open Approach (ICD-10-PCS; 2017-06-18)
PROC: 06BQ4ZZ Excision of Left Saphenous Vein, Percutaneous Endoscopic Approach (ICD-10-PCS; 2017-06-18)
PROC: 02100Z9 Bypass Coronary Artery, One Artery from Left Internal Mammary, Open Approach (ICD-10-PCS; 2017-06-18)
PROC: 03B10ZZ Excision of Left Internal Mammary Artery, Open Approach (ICD-10-PCS; 2017-06-18)
PROC: 0W9B30Z Drainage of Left Pleural Cavity with Drainage Device, Percutaneous Approach (ICD-10-PCS; 2017-06-18)
PROC: 5A1221Z Performance of Cardiac Output, Continuous (ICD-10-PCS; 2017-06-18)
PROC: 3E083GC Introduction of Other Therapeutic Substance into Heart, Percutaneous Approach (ICD-10-PCS; 2017-06-18)
DX: T82.855A Stenosis of coronary artery stent, initial encounter (principal); I11.0 Hypertensive heart disease with heart failure; I50.42 Chronic combined systolic (congestive) and diastolic (congestive) heart failure; I16.0 Hypertensive urgency; E78.5 Hyperlipidemia, unspecified; F10.20 Alcohol dependence, uncomplicated; F17.200 Nicotine dependence, unspecified, uncomplicated; G62.9 Polyneuropathy, unspecified; I25.2 Old myocardial infarction; I25.5 Ischemic cardiomyopathy; K59.00 Constipation, unspecified; M19.90 Unspecified osteoarthritis, unspecified site; Y83.1 Surgical operation with implant of artificial internal device as the cause of abnormal reaction of the patient, or of later complication, without mention of misadventure at the time of the procedure; Z82.49 Family history of ischemic heart disease and other diseases of the circulatory system; Z91.19 Patient's noncompliance with other medical treatment and regimen; I25.119 Atherosclerotic heart disease of native coronary artery with unspecified angina pectoris
CPT/HCPCS: 36415; 36600; 71010; 71260; 78452; 80048; 80053; 80061; 80069; 80076; 80307; 81001; 82550; 82553; 82607; 82803; 82805; 82962; 83735; 83880; 84443; 84484; 85007; 85014; 85018; 85025; 85027; 85347; 85384; 85610; 85730; 86850; 86900; 86901; 86920; 87641; 93005; 93017; 93306; 93312; 93325; 93458; 93880; 93970; 94002; 94250; 94760; 96372; 96374; 96375; 96376; 99152; 99153; A9500; A9505; C1769; C1771; C1781; C1892; G0269; J0282; J0690; J1644; J1650; J1815; J2060; J2150; J2175; J2250; J2270; J2440; J2704; J2710; J2785; J3010; J3370; J3420; J3475; J3480; J3490; J7040; J7120; P9041; P9046; Q9967; S0028; 99285-25; C9248; G0479; J2001

== ENCOUNTER 2017-06-26 15:30 | Emergency (ER) | payer OTHER ==
[~2017-06-26] VITALS: Ht 185.4 cm; Wt 83.5 kg
[~2017-06-26 15:30] MED LIST: AMIO200T2 PO; ASPI325T11 PO; ATOR10TA60 PO; CYAN1TAB19 PO; METO25TA4 PO; OXYC1TAB7 PO; TRAZ50TA15 PO
[2017-06-26] MEDS ORDERED: LIDOCAINE 1% / SOD BICARB 8.4% 20 ML VIAL. IJ ONE ×2 (16:23→16:30)
[2017-06-26 16:46] VITALS: BP 109/62
[2017-06-26] MEDS ORDERED: SULF1TAB24 PO (16:50)
--- NOTE | 2017-06-26 16:50 | PHYS DOC ---
Past Medical History Past Medical History: Hypertension, HI Past Surgical History: Angioplasty, Coronary Bypass Surgery, Other Additional Past Surgical Histo: Cardiac stent 2011 Alcohol Use: Heavy Drug Use: None Adult General Chief Complaint Chief Complaint: POST-OP PROBLEM HPI HPI 67-year-old male presenting to the emergency department today with left arm swelling. He reports having a CABG approximately 8 days ago by our cardiothoracic surgeon here. He has been having drainage from his swelling in his left arm where they placed his IV. He has pain in his left arm that is mild nonradiating intermittent and associated with a drainage from the wound that is yellow in color. He denies having any fevers or any associated rash. Review of systems is negative for headache fevers chills cough. All other review of systems is negative unless otherwise noted in history of present illness. ED course: 67-year-old male presenting to the emergency department today with left arm abscess/thrombophlebitis complicated by an abscess. Vital signs afebrile with a normal heart rate. Patient is well-appearing. His sternal scar is healing up well clean dry and intact with minimal drainage. The patient's left arm abscess/fluctuance was evaluated under ultrasound which showed a mild amount of complex fluid collection. Patient gives consent for incision and drainage. Incision and drainage performed which did produce a mild amount of purulent drainage. Patient prescribed oral Bactrim to follow up with his primary care physician over the next 4-5 days. Review of Systems Review of Systems SEE ABOVE. Current Medications Current Medications Current Medications Medications (Trade) Dose Ordered Sig/[facility] Start Time Stop Time Status Last Admin Dose Admin Lidocaine/Sodium Bicarbonate (Buffered Lidocaine 1%) 20 ml 1X ONCE 06/26/17 16:30 06/26/17 16:34 DC 06/26/17 16:30 20 ML Allergies Allergies Allergies Coded Allergies Type Severity Reaction Last Updated Verified No Known Drug Allergies 06/18/17 No Physical Exam Physical Exam SEE ABOVE Constitutional: Well developed, well nourished, no acute distress, non-toxic appearance. HENT: Normocephalic, atraumatic, bilateral external ears normal, oropharynx moist, no oral exudates, nose normal. [] Eyes: PERRLA, EOMI, conjunctiva normal, no discharge. Neck: Normal range of motion, no tenderness, supple, no stridor. [] Cardiovascular:Heart rate regular rhythm, no murmur . Chest wall sternotomy scar is clean dry and intact with minimal drainage. Lungs & Thorax: Bilateral breath sounds clear to auscultation [] Abdomen: Bowel sounds normal, soft, no tenderness, no masses, no pulsatile masses. [] Skin: Warm, dry, no erythema, no rash. Back: No tenderness, no CVA tenderness. [] Extremities: Patient's left upper extremity has approximately 3 or 4 cm fluctuant mass. Minimal associated cellulitis. It is mildly warm to touch. Otherwise remainder of the extremity is not swollen. Palpable pulse. 2 second cap refill. No edema of the arm otherwise. The remainder the extremities are unremarkable. Neurologic: Alert and oriented X 3, normal motor function, normal sensory function, no focal deficits noted. [] Psychologic: Affect normal, judgement normal, mood normal. Current Patient Data Vital Signs Vital Signs Date Time Temp Pulse Resp B/P (MAP) Pulse Ox O2 Delivery O2 Flow Rate FiO2 06/26/17 15:55 97.8 78 18 120/71 (87) 100 Room Air 97.8 EKG EKG [] Radiology/Procedures Radiology/Procedures [] Course & Med Decision Making Course & Med Decision Making Pertinent Labs and Imaging studies reviewed. (See chart for details) [] Dragon Disclaimer Dragon Disclaimer This electronic medical record was generated, in whole or in part, using a voice recognition dictation system. Departure Departure Impression: Primary Impression: Abscess of left arm Disposition: 01 HOME, SELF-CARE Condition: STABLE Referrals: NO PCP (PCP) Patient Instructions: Abscess, Care After Additional Instructions: Thank you for allowing us to participate in your care today. Followup with your primary care physician in 4 days for wound reevaluation. Call your Primary Doctor tomorrow and inform them of your visit today. If you do not have a primary care provider you can ask for a list of our primary care providers. Return to the emergency department you have any new or concerning findings. This should be evaluated by the primary care physician and any necessary consulting services for continued management within a few days after discharge. Return to emergency room if you have any new or concerning symptoms including but not limited to fever, chills, nausea, vomiting, intractable pain, any new rashes, chest pain, shortness of air, uncontrolled bleeding, difficulty breathing, and/or vision loss. Scripts Sulfamethoxazole/Trimethoprim (BACTRIM DS TABLET) 1 Each Tablet 1 TAB PO BID, #14 TAB Prov: MARANDA TURK MD 06/26/17 MARANDA TURK MD Jun 26, 2017 16:50
== END 2017-06-26 17:06 | disposition home or self-care (01) ==
LOC: ER 15:30
DX: L02.414 Cutaneous abscess of left upper limb (principal); I10 Essential (primary) hypertension; I25.2 Old myocardial infarction; Z95.5 Presence of coronary angioplasty implant and graft; Z95.1 Presence of aortocoronary bypass graft
CPT/HCPCS: 10060; 99283

== ENCOUNTER → 2017-07-09 | Outpatient (CLI) | payer OTHER ==
[2017-06-26 16:46] VITALS: BP 109/62
[~2017-07-09] MED LIST changes: +SULF1TAB24 PO
--- NOTE | 2017-07-09 12:32 | RAD ---
Indication postop. Protocol study. Frontal and lateral views of the chest were obtained and are compared to an examination 18 days earlier. Postoperative changes are noted. There is some scarring in the left upper lobe. Aeration of the left mid and lower lung field has improved substantially compared to the previous study. Acute parenchymal infiltrate in either lung is not seen. Significant pleural fluid is not present and there is no pneumothorax. IMPRESSION: No acute finding in the chest. Chronic scarring in the left upper lobe
== END | disposition home or self-care (01) ==
LOC: RAD 11:55
PROVIDERS: ATTEND Thoracic Surgery (Cardiothoracic Vascular Surgery)
DX: I25.10 Atherosclerotic heart disease of native coronary artery without angina pectoris (principal); J98.4 Other disorders of lung
CPT/HCPCS: 71020

== ENCOUNTER → 2017-12-01 | Outpatient (CLI) | payer OTHER ==
[2017-12-01] MEDS: ALBUTEROL SULFATE 2.5 MG/3 ML NEBU. NEB (10:06)
== END | disposition home or self-care (01) ==
LOC: PF 09:32
DX: J43.9 Emphysema, unspecified (principal)
CPT/HCPCS: 94060; 94640; J7613

== ENCOUNTER 2018-07-22 11:44 | Emergency (ER) | payer MEDICARE, OTHER ==
[~2018-07-22] VITALS: Ht 185.4 cm; Wt 84.8 kg
[~2018-07-22 11:44] MED LIST changes: -AMIO200T2 PO; +AMIO200T4 PO; +TRAZ-85 PO; -TRAZ50TA15 PO
[2018-07-22 11:59] VITALS: BP 196/98
[2018-07-22] MEDS ORDERED: CEPH500T PO (12:14)
[2018-07-22] MEDS ORDERED: MUPI22OI2 TP (12:14)
--- NOTE | 2018-07-22 12:20 | PHYS DOC ---
Past Medical History Past Medical History: Other Additional Past Medical Histor: heart stents, bypass Past Surgical History: No Surgical History Additional Past Surgical Histo: Cardiac stent 2011 Alcohol Use: None Drug Use: None Adult General Chief Complaint Chief Complaint: FACE PROBLEM HPI HPI Patient is a 68 year old m with rash to face. itchy and painful, now has it around the eyes as well. Review of Systems Review of Systems Constitutional: Denies fever or chills [] Allergies Allergies Allergies Coded Allergies Type Severity Reaction Last Updated Verified No Known Allergies Allergy Unknown 12/01/17 Yes Physical Exam Physical Exam Constitutional: Well developed, well nourished, no acute distress, non-toxic appearance. [] HENT: Normocephalic, atraumatic, bilateral external ears normal, Eyes: PERRLA, EOMI, conjunctiva normal, no discharge. [] Pulmonary: Normal respiratory effort no increased work of breathing no obvious chest wall trauma Abdomen: Bowel sounds normal, soft, no tenderness, no masses, no pulsatile masses. [] Skin: Impetigo noted on the lip area that does not involve the posterior oral pharynx. In addition there are scattered impetigo lesions in the lateral canthus area bilaterally no conjunctival injection Extremities: No tenderness, no cyanosis, no clubbing, ROM intact, no edema. [] Neurologic: Alert and oriented X 3, normal motor function, normal sensory function, no focal deficits noted. [] Psychologic: Affect normal, judgement normal, mood normal. [] Current Patient Data Vital Signs Vital Signs Date Time Temp Pulse Resp B/P (MAP) Pulse Ox O2 Delivery O2 Flow Rate FiO2 07/22/18 11:59 98.3 69 18 196/98 (130) Room Air 99.0 98.3 EKG EKG [] Radiology/Procedures Radiology/Procedures [] Course & Med Decision Making Course & Med Decision Making Pertinent Labs and Imaging studies reviewed. (See chart for details) []Impetigo moderately severe no progressing Keflex were given patient had elevated blood pressure he says he's had that before but that his doctor said he was okay stop the medication he was advised to follow-up within 1 week for recheck Dragon Disclaimer Alejandra Disclaimer This electronic medical record was generated, in whole or in part, using a voice recognition dictation system. Departure Departure Impression: Primary Impression: Elevated blood pressure reading Additional Impression: Impetigo Disposition: HOME, SELF-CARE Condition: STABLE Patient Instructions: Impetigo Scripts Cephalexin (CEPHALEXIN) 500 Mg Tablet 1 TAB PO TID, #21 TAB Prov: CHUNG MATTHEWS MD 07/22/18 Mupirocin (MUPIROCIN OINTMENT) 22 Gm Oint...g. 1 MELCHOR TP TID for WOUND CARE, #1 TUBE Prov: CHUNG MATTHEWS MD 07/22/18 Problem Qualifiers CHUNG MATTHEWS MD Jul 22, 2018 12:20
== END 2018-07-22 12:24 | disposition home or self-care (01) ==
LOC: ER 11:44
DX: L01.00 Impetigo, unspecified (principal); R03.0 Elevated blood-pressure reading, without diagnosis of hypertension; Z95.5 Presence of coronary angioplasty implant and graft; Z95.1 Presence of aortocoronary bypass graft
CPT/HCPCS: 99283

== ENCOUNTER 2021-06-04 09:51 | Observation (INO) | payer OTHER, MEDICAID ==
[~2021-06-04] VITALS: Ht 185.4 cm; Wt 90.3 kg
[~2021-06-04 09:51] MED LIST changes: -AMIO200T4 PO; +AMIO200T6 PO; +CEPH500T PO; +MUPI22OI2 TP; +TRAZ-118 PO; -TRAZ-85 PO
[2021-06-04 10:33] LABS: BASO # 0.1 x10^3/uL (0.0-0.2); BASO % 1 % (0-3); EOS # 0.3 x10^3/uL (0.0-0.7); EOS % 4 % (0-3); HEMATOCRIT 41.8 % (39.0-53.0); HEMOGLOBIN 14.2 g/dL (13.0-17.5); LYMPH # 1.4 x10^3/uL (1.0-4.8); LYMPH % 21 % (24-48); MEAN CORPUSCULAR HEMOGLOBIN 33 pg (25-35); MEAN CORPUSCULAR HGB CONC 34 g/dL (31-37); MEAN CORPUSCULAR VOLUME 97 fL (79-100); MONO % 16 % (0-9); NEUT # 3.7 x10^3/uL (1.8-7.7); NEUT % 58 % (31-73); PLATELET COUNT 242 x10^3/uL (140-400); RED CELL DISTRIBUTION WIDTH 12.7 % (11.5-14.5); WHITE BLOOD COUNT 6.4 x10^3/uL (4.0-11.0)
[2021-06-04 10:45] LABS: CALCIUM 9.1 mg/dL (8.5-10.1); GFR 89.6; POTASSIUM 4.7 mmol/L (3.5-5.1)
[2021-06-04 10:52] LABS: ALBUMIN/GLOBULIN RATIO 0.9 (1.0-1.7); TOTAL BILIRUBIN 0.4 mg/dL (0.2-1.0); TOTAL PROTEIN 8.3 g/dL (6.4-8.2)
--- NOTE | 2021-06-04 10:56 | RAD ---
XR CHEST 1V CLINICAL INDICATIONS: Reason: chest pain. COMPARISON: July 09, 2017. Findings: No acute lung infiltrate or pleural effusion or pulmonary edema or lung mass or pneumothora x is seen. A sternotomy is evident The heart size, pulmonary vasculature, mediastinum and both tej a re otherwise unremarkable. IMPRESSION: No acute radiographic abnormality is seen. Electronically signed by: Mikey Villarreal MD (06/04/2021 10:53 AM) [id number]
--- NOTE | 2021-06-04 11:54 | EKG ---
[facility] [address] [place] [address] Test Date: 2021-06-04 Test Time: 10:00:20 Pat Name: MAXIMO GILES Department: Room: Gender: M [employer]: : 1950 Requested By: RADHA BALBUENA Order Number: [id number] Reading MD: Measurements Intervals [place] Rate: 60 P: 71 LA: 134 QRS: 69 QRSD: 94 T: 127 QT: 412 QTc: 412 Interpretive Statements SINUS RHYTHM LEFT ATRIAL ABNORMALITY T ABNORMALITY IN ANTEROLATERAL LEADS ABNORMAL ECG RI6.02 No previous ECG available for comparison
--- NOTE | 2021-06-04 11:56 | EKG ---
[facility] [address] [place] [address] Test Date: 2021-06-04 Test Time: 11:30:25 Pat Name: MAXIMO GILES Department: Room: Gender: M Coordinator Of Evaluation: : 1950 Requested By: RADHA BALBUENA Order Number: [id number] Reading MD: Measurements Intervals [place] Rate: 58 P: 64 WI: 126 QRS: 61 QRSD: 94 T: 102 QT: 436 QTc: 432 Interpretive Statements SINUS RHYTHM LEFT ATRIAL ABNORMALITY QRS(T) CONTOUR ABNORMALITY CONSIDER ANTEROLATERAL MYOCARDIAL DAMAGE ABNORMAL ECG RI6.01 Compared to ECG 06/04/2021 10:00:20 T-wave abnormality no longer present
--- NOTE | 2021-06-04 13:40 | PHYS DOC ---
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 Patient has history of coronary artery disease, had history of bypass 5 years ago. Patient denies any cough or fever, no abdominal pain, no nausea vomiting. Patient also said he had a skin lesion on the upper back for a long time then about couple days ago it started having pain and became more swollen. Review of Systems: Review of Systems: Constitutional: Denies fever or chills. [] Eyes: Denies change in visual acuity. [] HENT: Denies nasal congestion or sore throat. [] Respiratory: Denies cough or shortness of breath. [] Cardiovascular: positive for chest pain GI: Denies abdominal pain, nausea, vomiting, bloody stools or diarrhea. [] : Denies dysuria. [] Musculoskeletal: Denies back pain or joint pain. [] Integument: positive for painful skin lesion on upper back. Neurologic: Denies headache, focal weakness or sensory changes. [] Endocrine: Denies polyuria or polydipsia. [] Lymphatic: Denies swollen glands. [] Psychiatric: Denies depression or anxiety. [] Heart Score: C/O Chest Pain: Yes HEART Score for Chest Pain: HEART Score for Chest Pain Response (Comments) Value History Moderately Suspicious 1 ECG Nonspecific Repolarizatio 1 Age > 65 2 Risk Factors >3 Risk Factors or Hx CAD 2 Troponin < Normal Limit 0 Total 6 Risk Factors: Risk Factors: DM, Current or recent (<one month) smoker, HTN, HLP, family history of CAD, obesity. Risk Scores: Score 0 - 3: 2.5% MACE over next 6 weeks - Discharge Home Score 4 - 6: 20.3% MACE over next 6 weeks - Admit for Clinical Observation Score 7 - 10: 72.7% MACE over next 6 weeks - Early Invasive Strategies Allergies: Allergies: Allergies Coded Allergies Type Severity Reaction Last Updated Verified No Known Allergies Allergy Unknown 12/01/17 Yes Physical Exam: PE: Constitutional: Well developed, well nourished, no acute distress, non-toxic appearance. [] HENT: Normocephalic, atraumatic, bilateral external ears normal, oropharynx moist, no oral exudates, nose normal. [] Eyes: PERRLA, EOMI, conjunctiva normal, no discharge. [] Neck: Normal range of motion, no tenderness, supple, no stridor. [] Cardiovascular:Heart rate regular rhythm, no murmur [] Lungs & Thorax: Bilateral breath sounds clear to auscultation [] Abdomen: Bowel sounds normal, soft, no tenderness, no masses, no pulsatile masses. [] Skin: Warm, dry, there is is tender raise skin lesion appearing like a lipoma about the size of a golf ball. [] Back: No tenderness, no CVA tenderness. [] Extremities: No tenderness, no cyanosis, no clubbing, ROM intact, no edema. [] Neurologic: Alert and oriented X 3, normal motor function, normal sensory function, no focal deficits noted. [] Psychologic: Affect normal, judgement normal, mood normal. [] Current Patient Data: Labs: Laboratory Tests Test 06/04/21 10:20 White Blood Count 6.4 x10^3/uL (4.0-11.0) Red Blood Count 4.30 x10^6/uL (4.30-5.70) Hemoglobin 14.2 g/dL (13.0-17.5) Hematocrit 41.8 % (39.0-53.0) Mean Corpuscular Volume 97 fL (79-100) Mean Corpuscular Hemoglobin 33 pg (25-35) Mean Corpuscular Hemoglobin Concent 34 g/dL (31-37) Red Cell Distribution Width 12.7 % (11.5-14.5) Platelet Count 242 x10^3/uL (140-400) Neutrophils (%) (Auto) 58 % (31-73) Lymphocytes (%) (Auto) 21 % (24-48) L Monocytes (%) (Auto) 16 % (0-9) H Eosinophils (%) (Auto) 4 % (0-3) H Basophils (%) (Auto) 1 % (0-3) Neutrophils # (Auto) 3.7 x10^3/uL (1.8-7.7) Lymphocytes # (Auto) 1.4 x10^3/uL (1.0-4.8) Monocytes # (Auto) 1.0 x10^3/uL (0.0-1.1) Eosinophils # (Auto) 0.3 x10^3/uL (0.0-0.7) Basophils # (Auto) 0.1 x10^3/uL (0.0-0.2) Sodium Level 140 mmol/L (136-145) Potassium Level 4.7 mmol/L (3.5-5.1) Chloride Level 100 mmol/L (98-107) Carbon Dioxide Level 29 mmol/L (21-32) Anion Gap 11 (6-14) Blood Urea Nitrogen 12 mg/dL (8-26) Creatinine 1.0 mg/dL (0.7-1.3) Estimated GFR (Cockcroft-Gault) 89.6 BUN/Creatinine Ratio 12 (6-20) Glucose Level 93 mg/dL (70-99) Calcium Level 9.1 mg/dL (8.5-10.1) Magnesium Level 2.0 mg/dL (1.8-2.4) Total Bilirubin 0.4 mg/dL (0.2-1.0) Aspartate Amino Transferase (AST) 22 U/L (15-37) Alanine Aminotransferase (ALT) 32 U/L (16-63) Alkaline Phosphatase 89 U/L (46-116) Troponin I Quantitative < 0.017 ng/mL (0.000-0.055) WX-Gjr-J-Type Natriuretic Peptide 203 pg/mL (0-124) H Total Protein 8.3 g/dL (6.4-8.2) H Albumin 4.0 g/dL (3.4-5.0) Albumin/Globulin Ratio 0.9 (1.0-1.7) L Lipase 88 U/L (73-393) Laboratory Tests 06/04/21 10:20 Laboratory Tests 06/04/21 10:20 Vital Signs: Vital Signs Date Time Temp Pulse Resp B/P (MAP) Pulse Ox O2 Delivery O2 Flow Rate FiO2 06/04/21 12:29 58 136/66 (89) 99 Room Air 06/04/21 10:06 98.5 18 98.5 EKG: EKG: EKG was done at 1003, heart rate of 60 bpm, sinus rhythm, no ST segment elevation. Radiology/Procedures: Radiology/Procedures: [][facility] [address] [place], [place] [id number] IMAGING REPORT Signed PATIENT: MAXIMO GILES ACCOUNT: [id number] : 1950 LOCATION: ER AGE: 71 SEX: M EXAM STATUS: REG ER ORD. PHYSICIAN: RADHA BALBUENA DO REASON: chest pain-IV,EKG @0958 PROCEDURE: PORTABLE CHEST 1V XR CHEST 1V CLINICAL INDICATIONS: Reason: chest pain. COMPARISON: July 09, 2017. Findings: No acute lung infiltrate or pleural effusion or pulmonary edema or lung mass or pneumothorax is seen. A sternotomy is evident The heart size, pulmonary vasculature, mediastinum and both tej are otherwise unremarkable. IMPRESSION: No acute radiographic abnormality is seen. Electronically signed by: Alexandria Villarreal MD (06/04/2021 10:53 AM) [id number] DICTATED and SIGNED BY: ALEXANDRIA VILLARREAL MD DATE: 06/04/21 [id number] Indication: abscess Procedure: The patient was positioned appropriately. Local anesthesia was 20 ml 1% lidocaine around the wound. An incision was then made over the apex of the lesion and large amount of foul purulent material was expressed. The drainage cavity was irrigated The patient tolerated the procedure well. Complications: none. Course & Med Decision Making: Course & Med Decision Making Pertinent Labs and Imaging studies reviewed. (See chart for details) [] Dragon Disclaimer: Draggeorge Disclaimer: This electronic medical record was generated, in whole or in part, using a voice recognition dictation system. Departure Departure Impression: Primary Impression: Chest pain Additional Impression: Skin abscess Disposition: ADMITTED INPATIENT Admitting Physician: WILBER (DR. FREEMAN) Condition: STABLE Referrals: UNKNOWN PCP NAME (PCP) RADHA BALBUENA DO Jun 04, 2021 13:40
[2021-06-04] MEDS ORDERED: LIDOCAINE 1% Multi-Dose 20 ML VIAL. INJ ONE (13:45)
--- NOTE | 2021-06-04 13:53 | PDOC1 ---
History and Physical Date of Admission Date of Admission DATE: 06/04/21 TIME: 13:34 Identification/Chief Complaint Chief Complaint Chest pain Source Source: Chart review, Patient History of Present Illness History of Present Illness Patient 71-year-old male with past medical history CAD, CABG, HTN, who presents to the ED with complaints of right-sided chest pain. He reports intermittent, aching chest pain over the past 3 days. Associated shortness of breath. Labs on admission were largely unremarkable; troponin <0.017, BNP 203. Chest x-ray showed no acute abnormality. He has history of cardiac cath performed in this hospital 06/11/2017 that showed CAD with stenosis above and below stent in OM, occluded small RCA with bridging collaterals, widemouth LV aneurysm, and decreased left ventricular EF in part due to this aneurysm; he was recommended aneurysmectomy and CABG. 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 He does note a history of "abscess "right back for years has recently started become painful. Dr. Balbuena in ER is aware and will perform I&D. Will admit patient for further medical management. Past Medical History Cardiovascular: CAD, HTN Past Surgical History Past Surgical History Cardiac stent Past Surgical History: CABG Family History Family History: Hypertension Social History Smoke: Quit ALCOHOL: heavy Drugs: None Current Medications Current Medications Active Scripts Active Cephalexin 500 Mg Tablet 1 Tab PO TID Mupirocin Ointment (Mupirocin) 22 Gm Oint...g. 1 Hitesh TP TID Bactrim Ds Tablet (Sulfamethoxazole/Trimethoprim) 1 Each Tablet 1 Tab PO BID Oxycodone-Acetaminophen 5-325 (Oxycodone Hcl/Acetaminophen) 1 Each Tablet 1-2 Tab PO PRN Q4-6HRS PRN Metoprolol Tartrate 25 Mg Tablet 25 Mg PO BID Aspirin Ec (Aspirin) 325 Mg Tablet. 325 Mg PO DAILYWBKFT 30 Days Trazodone Hcl 50 Mg Tablet 1 Tab PO QHS Folbic Tablet (Cyanocobalamin/Fa/Pyridoxine) 1 Each Tablet 1 Tab PO DAILY Reported Atorvastatin Calcium 10 Mg Tablet 1 Tab PO QHS Amiodarone Hcl 200 Mg Tablet 1 Tab PO BID Take 200mg TWICE DAILY for 7 days, then take 200mg ONCE DAILY. [none] Allergies Allergies: Coded Allergies: No Known Allergies (Verified Allergy, Unknown, 12/01/17) ROS Review of System GENERAL: No history of weight change, weakness or fevers. SKIN: No bruising, hair changes or rashes. EYES: No blurred, double or loss of vision. NOSE AND THROAT: No history of nosebleeds, hoarseness or sore throat. HEART: Chest pain. Denies palpitations. LUNGS: Shortness of breath. Denies cough, hemoptysis, or wheezing. GASTROINTESTINAL: Denies nausea, vomiting, abdominal pain. GENITOURINARY: Denies dysuria, frequency, urgency, hematuria. NEUROLOGIC: Denies history of numbness, tingling, tremor or weakness. PSYCHIATRIC: Denies anxiety, denies depression. ENDOCRINE: No history of heat or cold intolerance, polyuria or polydipsia. EXTREMITIES: Denies muscle weakness, joint pain, pain on walking or stiffness. Physical Exam Physical Exam General: Alert, Oriented X3, Cooperative, No acute distress HEENT: PERRLA, EOMI Lungs: Clear to auscultation, Normal air movement Heart: RRR, no murmurs. Midline sternotomy scar. Cardiovascular: S1, S2 Abdomen: Normal bowel sounds, Soft, No tenderness Extremities: No clubbing, No cyanosis Skin: Lipoma to right upper back. No rashes, No significant lesion Neuro: Normal speech, Normal tone, Sensation intact Psych/Mental Status: Mental status NL, Mood NL Vitals Vitals Vital Signs Date Time Temp Pulse Resp B/P (MAP) Pulse Ox O2 Delivery O2 Flow Rate FiO2 06/04/21 12:29 58 136/66 (89) 99 Room Air 06/04/21 10:06 98.5 18 98.5 Labs Labs Laboratory Tests Test 06/04/21 10:20 White Blood Count 6.4 x10^3/uL (4.0-11.0) Red Blood Count 4.30 x10^6/uL (4.30-5.70) Hemoglobin 14.2 g/dL (13.0-17.5) Hematocrit 41.8 % (39.0-53.0) Mean Corpuscular Volume 97 fL (79-100) Mean Corpuscular Hemoglobin 33 pg (25-35) Mean Corpuscular Hemoglobin Concent 34 g/dL (31-37) Red Cell Distribution Width 12.7 % (11.5-14.5) Platelet Count 242 x10^3/uL (140-400) Neutrophils (%) (Auto) 58 % (31-73) Lymphocytes (%) (Auto) 21 % (24-48) Monocytes (%) (Auto) 16 % (0-9) Eosinophils (%) (Auto) 4 % (0-3) Basophils (%) (Auto) 1 % (0-3) Neutrophils # (Auto) 3.7 x10^3/uL (1.8-7.7) Lymphocytes # (Auto) 1.4 x10^3/uL (1.0-4.8) Monocytes # (Auto) 1.0 x10^3/uL (0.0-1.1) Eosinophils # (Auto) 0.3 x10^3/uL (0.0-0.7) Basophils # (Auto) 0.1 x10^3/uL (0.0-0.2) Sodium Level 140 mmol/L (136-145) Potassium Level 4.7 mmol/L (3.5-5.1) Chloride Level 100 mmol/L (98-107) Carbon Dioxide Level 29 mmol/L (21-32) Anion Gap 11 (6-14) Blood Urea Nitrogen 12 mg/dL (8-26) Creatinine 1.0 mg/dL (0.7-1.3) Estimated GFR (Cockcroft-Gault) 89.6 BUN/Creatinine Ratio 12 (6-20) Glucose Level 93 mg/dL (70-99) Calcium Level 9.1 mg/dL (8.5-10.1) Magnesium Level 2.0 mg/dL (1.8-2.4) Total Bilirubin 0.4 mg/dL (0.2-1.0) Aspartate Amino Transf (AST/SGOT) 22 U/L (15-37) Alanine Aminotransferase (ALT/SGPT) 32 U/L (16-63) Alkaline Phosphatase 89 U/L (46-116) Troponin I Quantitative < 0.017 ng/mL (0.000-0.055) EZ-Rkx-L-Type Natriuretic Peptide 203 pg/mL (0-124) Total Protein 8.3 g/dL (6.4-8.2) Albumin 4.0 g/dL (3.4-5.0) Albumin/Globulin Ratio 0.9 (1.0-1.7) Lipase 88 U/L (73-393) Laboratory Tests Test 06/04/21 10:20 White Blood Count 6.4 x10^3/uL (4.0-11.0) Red Blood Count 4.30 x10^6/uL (4.30-5.70) Hemoglobin 14.2 g/dL (13.0-17.5) Hematocrit 41.8 % (39.0-53.0) Mean Corpuscular Volume 97 fL (79-100) Mean Corpuscular Hemoglobin 33 pg (25-35) Mean Corpuscular Hemoglobin Concent 34 g/dL (31-37) Red Cell Distribution Width 12.7 % (11.5-14.5) Platelet Count 242 x10^3/uL (140-400) Neutrophils (%) (Auto) 58 % (31-73) Lymphocytes (%) (Auto) 21 % (24-48) Monocytes (%) (Auto) 16 % (0-9) Eosinophils (%) (Auto) 4 % (0-3) Basophils (%) (Auto) 1 % (0-3) Neutrophils # (Auto) 3.7 x10^3/uL (1.8-7.7) Lymphocytes # (Auto) 1.4 x10^3/uL (1.0-4.8) Monocytes # (Auto) 1.0 x10^3/uL (0.0-1.1) Eosinophils # (Auto) 0.3 x10^3/uL (0.0-0.7) Basophils # (Auto) 0.1 x10^3/uL (0.0-0.2) Sodium Level 140 mmol/L (136-145) Potassium Level 4.7 mmol/L (3.5-5.1) Chloride Level 100 mmol/L (98-107) Carbon Dioxide Level 29 mmol/L (21-32) Anion Gap 11 (6-14) Blood Urea Nitrogen 12 mg/dL (8-26) Creatinine 1.0 mg/dL (0.7-1.3) Estimated GFR (Cockcroft-Gault) 89.6 BUN/Creatinine Ratio 12 (6-20) Glucose Level 93 mg/dL (70-99) Calcium Level 9.1 mg/dL (8.5-10.1) Magnesium Level 2.0 mg/dL (1.8-2.4) Total Bilirubin 0.4 mg/dL (0.2-1.0) Aspartate Amino Transf (AST/SGOT) 22 U/L (15-37) Alanine Aminotransferase (ALT/SGPT) 32 U/L (16-63) Alkaline Phosphatase 89 U/L (46-116) Troponin I Quantitative < 0.017 ng/mL (0.000-0.055) LG-Bqb-J-Type Natriuretic Peptide 203 pg/mL (0-124) Total Protein 8.3 g/dL (6.4-8.2) Albumin 4.0 g/dL (3.4-5.0) Albumin/Globulin Ratio 0.9 (1.0-1.7) Lipase 88 U/L (73-393) Images Images PATIENT: MAXIMO GILES ACCOUNT: [id number] : 1950 LOCATION: ER AGE: 71 SEX: M EXAM STATUS: REG ER ORD. PHYSICIAN: RADHA BALBUENA DO REASON: chest pain-IV,EKG @0958 PROCEDURE: PORTABLE CHEST 1V XR CHEST 1V CLINICAL INDICATIONS: Reason: chest pain. COMPARISON: July 09, 2017. Findings: No acute lung infiltrate or pleural effusion or pulmonary edema or lung mass or pneumothorax is seen. A sternotomy is evident The heart size, pulmonary vasculature, mediastinum and both tej are otherwise unremarkable. IMPRESSION: No acute radiographic abnormality is seen. VTE Prophylaxis Ordered VTE Prophylaxis Devices: No VTE Pharmacological Prophylaxi: Yes Assessment/Plan Assessment/Plan Chest pain CAD History CABG HTN Plan: Consultation placed to cardiology Will provide full dose aspirin Initial troponin 0.017; continue to trend troponins. Morphine, nitroglycerin as needed Will obtain limited echocardiogram Echocardiogram from 06/09/2027 showed EF 60-65%, grade 1 diastolic dysfunction. Cardiac cath from 06/11/2017 showed CAD with stenosis above and below stent in OM, occluded small RCA with bridging collaterals, widemouth LV aneurysm, and decreased left ventricular EF in part due to this aneurysm Lipid panel pending Resume home medications FEN - Cardiac diet PPX - Heparin DNR Dispo - inpatient for above Patient names his brother (Juarez Westfall) as surrogate decision-maker Justifications for Admission Other Justification LUTHER FREEMAN MD Jun 04, 2021 13:53
[2021-06-04] MEDS ORDERED: NITROGLYCERIN SUBLINGUAL 0.4 MG BOTTLE OF 25. SL PRN (14:00)
[2021-06-04] MEDS ORDERED: MORPHINE SULFATE 4 MG/ML INJ. IVP PRN (14:00)
[2021-06-04 14:26] LABS: CHOLESTEROL/HDL RATIO 2.2
[2021-06-04] MEDS ORDERED: HYDROcodone/APAP 5/325MG 1 TAB TABLET PO PRN (15:45)
[2021-06-04] MEDS ORDERED: MAG HYDROX/ALUMINUM HYD/SIMETH 30 ML ORAL.SUSP PO PRN (15:45)
[2021-06-04] MEDS ORDERED: ZOLPIDEM 5 MG TABLET. PO PRN (15:45)
[2021-06-04] MEDS ORDERED: CALCIUM CARBONATE 500 MG TAB.CHEW PO PRN (15:45)
[2021-06-04] MEDS ORDERED: MAGNESIUM HYDROXIDE 2,400 MG/30 ML ORAL.SUSP. PO PRN (15:45)
[2021-06-04] MEDS ORDERED: ONDANSETRON PF 4 MG/2 ML VIAL. IVP PRN (15:45)
[2021-06-04] MEDS ORDERED: ACETAMINOPHEN 325 MG TABLET. PO PRN (15:45)
[2021-06-04] MEDS: HEPARIN for SUB-Q USE 5,000 UNIT/ML VIAL. SQ SCH ×2 (16:29→21:37)
[2021-06-04 20:24] VITALS: BP 149/89
[2021-06-04] MEDS ORDERED: ATORVASTATIN CALCIUM 10 MG TABLET. PO SCH (21:00)
[2021-06-04] MEDS ORDERED: traZODone 50 MG TABLET. PO SCH (21:00)
[2021-06-04] MEDS: METOPROLOL TART IMMED RELEASE 25 MG TABLET. PO SCH (21:36)
[2021-06-04] MEDS: AMIODARONE HCL 200 MG TABLET. PO SCH (21:36)
[2021-06-04 23:10] VITALS: BP 118/69
[2021-06-05 02:43] VITALS: BP 120/78
[2021-06-05] MEDS: HEPARIN for SUB-Q USE 5,000 UNIT/ML VIAL. SQ SCH (06:00)
[2021-06-05 07:00] VITALS: BP 116/68
[2021-06-05] MEDS ORDERED: ASPIRIN ENTERIC COATED 325 MG TABLET.DR. PO SCH (08:00)
[2021-06-05] MEDS: AMIODARONE HCL 200 MG TABLET. PO SCH (08:34)
[2021-06-05] MEDS: METOPROLOL TART IMMED RELEASE 25 MG TABLET. PO SCH (08:35)
--- NOTE | 2021-06-05 08:40 | PDOC ---
PROGRESS NOTES Date of Service: DATE: 06/05/21 TIME: 08:39 Chief Complaint Chief Complaint VTE Prophylaxis Ordered VTE Prophylaxis Devices: No VTE Pharmacological Prophylaxi: Yes IMPRESSION Chest pain CAD History CABG HTN SKIN ABSCESS [id number] 06/04 , LIPOMA DRAINED IN ER Plan: Consultation cardiology REVIEWED full dose aspirin Initial troponin 0.017; trend troponins. NEG Morphine, nitroglycerin as needed Will obtain limited echocardiogram Echocardiogram from 06/09/2027 showed EF 60-65%, grade 1 diastolic dysfunction. Cardiac cath from 06/11/2017 showed CAD with stenosis above and below stent in OM, occluded small RCA with bridging collaterals, widemouth LV aneurysm, and decreased left ventricular EF in part due to this aneurysm Lipid panel pending Resume home medications FEN - Cardiac diet PPX - Heparin DNR Dispo - inpatient for above Patient names his brother (Juarez Westfall) as surrogate decision-maker ASA, statin and metoprolol outpt TTE and MPI establish f/u with Dr. Henderson D/C PLANNING 27 MIN Justifications for Admission Justifications for Admission Other Justification History of Present Illness History of Present Illness Identification/Chief Complaint Chief Complaint Chest pain Source Source: Chart review, Patient History of Present Illness History of Present Illness Patient 71-year-old male with past medical history CAD, CABG, HTN, who presents to the ED with complaints of right-sided chest pain. He reports intermittent, aching chest pain over the past 3 days. Associated shortness of breath. Labs on admission were largely unremarkable; troponin <0.017, BNP 203. Chest x-ray showed no acute abnormality. He has history of cardiac cath performed in this hospital 06/11/2017 that showed CAD with stenosis above and below stent in OM, occluded small RCA with bridging collaterals, widemouth LV aneurysm, and decreased left ventricular EF in part due to this aneurysm; he was recommended aneurysmectomy and CABG. He is not followed by [employer]. He does note a history of "abscess "right back for years has recently started become painful. Dr. Pérez in ER is aware and will perform I&D. Will admit patient for further medical management. Past Medical History Cardiovascular: CAD, HTN Past Surgical History Past Surgical History Cardiac stent Past Surgical History: CABG Family History Family History: Hypertension Social History Smoke: Quit ALCOHOL: heavy Drugs: None Current Medications Current Medications Active Scripts Active Cephalexin 500 Mg Tablet 1 Tab PO TID Mupirocin Ointment (Mupirocin) 22 Gm Oint...g. 1 Hitesh TP TID Bactrim Ds Tablet (Sulfamethoxazole/Trimethoprim) 1 Each Tablet 1 Tab PO BID Oxycodone-Acetaminophen 5-325 (Oxycodone Hcl/Acetaminophen) 1 Each Tablet 1-2 Tab PO PRN Q4-6HRS PRN Metoprolol Tartrate 25 Mg Tablet 25 Mg PO BID Aspirin Ec (Aspirin) 325 Mg Tablet.dr 325 Mg PO DAILYWBKFT 30 Days Trazodone Hcl 50 Mg Tablet 1 Tab PO QHS Folbic Tablet (Cyanocobalamin/Fa/Pyridoxine) 1 Each Tablet 1 Tab PO DAILY Reported Atorvastatin Calcium 10 Mg Tablet 1 Tab PO QHS Amiodarone Hcl 200 Mg Tablet 1 Tab PO BID Take 200mg TWICE DAILY for 7 days, then take 200mg ONCE DAILY. [none] Allergies Allergies: Coded Allergies: No Known Allergies (Verified Allergy, Unknown, 12/01/17) ROS Review of System GENERAL: No history of weight change, weakness or fevers. SKIN: No bruising, hair changes or rashes. EYES: No blurred, double or loss of vision. NOSE AND THROAT: No history of nosebleeds, hoarseness or sore throat. HEART: Chest pain. Denies palpitations. LUNGS: Shortness of breath. Denies cough, hemoptysis, or wheezing. GASTROINTESTINAL: Denies nausea, vomiting, abdominal pain. GENITOURINARY: Denies dysuria, frequency, urgency, hematuria. NEUROLOGIC: Denies history of numbness, tingling, tremor or weakness. PSYCHIATRIC: Denies anxiety, denies depression. ENDOCRINE: No history of heat or cold intolerance, polyuria or polydipsia. EXTREMITIES: Denies muscle weakness, joint pain, pain on walking or stiffness. Vitals Vitals Vital Signs Date Time Temp Pulse Resp B/P (MAP) Pulse Ox O2 Delivery O2 Flow Rate FiO2 06/05/21 08:35 78 116/68 06/05/21 07:00 97.8 16 95 Room Air 97.8 Physical Exam Physical Exam Physical Exam General: Alert, Oriented X3, Cooperative, No acute distress HEENT: PERRLA, EOMI Lungs: Clear to auscultation, Normal air movement Heart: RRR, no murmurs. Midline sternotomy scar. Cardiovascular: S1, S2 Abdomen: Normal bowel sounds, Soft, No tenderness Extremities: No clubbing, No cyanosis Skin: Lipoma to right upper back. Neuro: Normal speech, Normal tone, Sensation intact Psych/Mental Status: Mental status NL, Mood NL General: Alert, Oriented X3, Cooperative Heart: Normal S1, Normal S2 Lungs: Clear Abdomen: Soft, No tenderness Extremities: No cyanosis, Other (COVERED SKIN INCISED LIPOMA NO DRAINAGE) Labs LABS Laboratory Tests Test 06/04/21 10:20 06/04/21 13:20 06/04/21 13:30 06/04/21 15:50 White Blood Count 6.4 x10^3/uL (4.0-11.0) Red Blood Count 4.30 x10^6/uL (4.30-5.70) Hemoglobin 14.2 g/dL (13.0-17.5) Hematocrit 41.8 % (39.0-53.0) Mean Corpuscular Volume 97 fL (79-100) Mean Corpuscular Hemoglobin 33 pg (25-35) Mean Corpuscular Hemoglobin Concent 34 g/dL (31-37) Red Cell Distribution Width 12.7 % (11.5-14.5) Platelet Count 242 x10^3/uL (140-400) Neutrophils (%) (Auto) 58 % (31-73) Lymphocytes (%) (Auto) 21 % (24-48) Monocytes (%) (Auto) 16 % (0-9) Eosinophils (%) (Auto) 4 % (0-3) Basophils (%) (Auto) 1 % (0-3) Neutrophils # (Auto) 3.7 x10^3/uL (1.8-7.7) Lymphocytes # (Auto) 1.4 x10^3/uL (1.0-4.8) Monocytes # (Auto) 1.0 x10^3/uL (0.0-1.1) Eosinophils # (Auto) 0.3 x10^3/uL (0.0-0.7) Basophils # (Auto) 0.1 x10^3/uL (0.0-0.2) Sodium Level 140 mmol/L (136-145) Potassium Level 4.7 mmol/L (3.5-5.1) Chloride Level 100 mmol/L (98-107) Carbon Dioxide Level 29 mmol/L (21-32) Anion Gap 11 (6-14) Blood Urea Nitrogen 12 mg/dL (8-26) Creatinine 1.0 mg/dL (0.7-1.3) Estimated GFR (Cockcroft-Gault) 89.6 BUN/Creatinine Ratio 12 (6-20) Glucose Level 93 mg/dL (70-99) Calcium Level 9.1 mg/dL (8.5-10.1) Magnesium Level 2.0 mg/dL (1.8-2.4) Total Bilirubin 0.4 mg/dL (0.2-1.0) Aspartate Amino Transf (AST/SGOT) 22 U/L (15-37) Alanine Aminotransferase (ALT/SGPT) 32 U/L (16-63) Alkaline Phosphatase 89 U/L (46-116) Troponin I Quantitative < 0.017 ng/mL (0.000-0.055) < 0.017 ng/mL (0.000-0.055) < 0.017 ng/mL (0.000-0.055) ZO-Zmi-J-Type Natriuretic Peptide 203 pg/mL (0-124) Total Protein 8.3 g/dL (6.4-8.2) Albumin 4.0 g/dL (3.4-5.0) Albumin/Globulin Ratio 0.9 (1.0-1.7) Triglycerides Level 59 mg/dL (0-150) Cholesterol Level 115 mg/dL (0-200) LDL Cholesterol, Calculated 51 mg/dL (0-100) VLDL Cholesterol, Calculated 12 mg/dL (0-40) Non-HDL Cholesterol Calculated 63 mg/dL (0-129) HDL Cholesterol 52 mg/dL (40-60) Cholesterol/HDL Ratio 2.2 Lipase 88 U/L (73-393) SARS-CoV-2 Antigen (Rapid) Negative (NEGATIVE) Assessment and Plan Assessmemt and Plan Problems Medical Problems: (1) Chest pain Status: Acute (2) Skin abscess Status: Acute Comment Review of Relevant I have reviewed the following items chetan (where applicable) has been applied. Labs Laboratory Tests Test 06/04/21 10:20 06/04/21 13:20 06/04/21 13:30 06/04/21 15:50 White Blood Count 6.4 x10^3/uL (4.0-11.0) Red Blood Count 4.30 x10^6/uL (4.30-5.70) Hemoglobin 14.2 g/dL (13.0-17.5) Hematocrit 41.8 % (39.0-53.0) Mean Corpuscular Volume 97 fL (79-100) Mean Corpuscular Hemoglobin 33 pg (25-35) Mean Corpuscular Hemoglobin Concent 34 g/dL (31-37) Red Cell Distribution Width 12.7 % (11.5-14.5) Platelet Count 242 x10^3/uL (140-400) Neutrophils (%) (Auto) 58 % (31-73) Lymphocytes (%) (Auto) 21 % (24-48) Monocytes (%) (Auto) 16 % (0-9) Eosinophils (%) (Auto) 4 % (0-3) Basophils (%) (Auto) 1 % (0-3) Neutrophils # (Auto) 3.7 x10^3/uL (1.8-7.7) Lymphocytes # (Auto) 1.4 x10^3/uL (1.0-4.8) Monocytes # (Auto) 1.0 x10^3/uL (0.0-1.1) Eosinophils # (Auto) 0.3 x10^3/uL (0.0-0.7) Basophils # (Auto) 0.1 x10^3/uL (0.0-0.2) Sodium Level 140 mmol/L (136-145) Potassium Level 4.7 mmol/L (3.5-5.1) Chloride Level 100 mmol/L (98-107) Carbon Dioxide Level 29 mmol/L (21-32) Anion Gap 11 (6-14) Blood Urea Nitrogen 12 mg/dL (8-26) Creatinine 1.0 mg/dL (0.7-1.3) Estimated GFR (Cockcroft-Gault) 89.6 BUN/Creatinine Ratio 12 (6-20) Glucose Level 93 mg/dL (70-99) Calcium Level 9.1 mg/dL (8.5-10.1) Magnesium Level 2.0 mg/dL (1.8-2.4) Total Bilirubin 0.4 mg/dL (0.2-1.0) Aspartate Amino Transf (AST/SGOT) 22 U/L (15-37) Alanine Aminotransferase (ALT/SGPT) 32 U/L (16-63) Alkaline Phosphatase 89 U/L (46-116) Troponin I Quantitative < 0.017 ng/mL (0.000-0.055) < 0.017 ng/mL (0.000-0.055) < 0.017 ng/mL (0.000-0.055) VL-Gbt-K-Type Natriuretic Peptide 203 pg/mL (0-124) Total Protein 8.3 g/dL (6.4-8.2) Albumin 4.0 g/dL (3.4-5.0) Albumin/Globulin Ratio 0.9 (1.0-1.7) Triglycerides Level 59 mg/dL (0-150) Cholesterol Level 115 mg/dL (0-200) LDL Cholesterol, Calculated 51 mg/dL (0-100) VLDL Cholesterol, Calculated 12 mg/dL (0-40) Non-HDL Cholesterol Calculated 63 mg/dL (0-129) HDL Cholesterol 52 mg/dL (40-60) Cholesterol/HDL Ratio 2.2 Lipase 88 U/L (73-393) SARS-CoV-2 Antigen (Rapid) Negative (NEGATIVE) Laboratory Tests Test 06/04/21 10:20 06/04/21 13:20 06/04/21 13:30 06/04/21 15:50 White Blood Count 6.4 x10^3/uL (4.0-11.0) Red Blood Count 4.30 x10^6/uL (4.30-5.70) Hemoglobin 14.2 g/dL (13.0-17.5) Hematocrit 41.8 % (39.0-53.0) Mean Corpuscular Volume 97 fL (79-100) Mean Corpuscular Hemoglobin 33 pg (25-35) Mean Corpuscular Hemoglobin Concent 34 g/dL (31-37) Red Cell Distribution Width 12.7 % (11.5-14.5) Platelet Count 242 x10^3/uL (140-400) Neutrophils (%) (Auto) 58 % (31-73) Lymphocytes (%) (Auto) 21 % (24-48) Monocytes (%) (Auto) 16 % (0-9) Eosinophils (%) (Auto) 4 % (0-3) Basophils (%) (Auto) 1 % (0-3) Neutrophils # (Auto) 3.7 x10^3/uL (1.8-7.7) Lymphocytes # (Auto) 1.4 x10^3/uL (1.0-4.8) Monocytes # (Auto) 1.0 x10^3/uL (0.0-1.1) Eosinophils # (Auto) 0.3 x10^3/uL (0.0-0.7) Basophils # (Auto) 0.1 x10^3/uL (0.0-0.2) Sodium Level 140 mmol/L (136-145) Potassium Level 4.7 mmol/L (3.5-5.1) Chloride Level 100 mmol/L (98-107) Carbon Dioxide Level 29 mmol/L (21-32) Anion Gap 11 (6-14) Blood Urea Nitrogen 12 mg/dL (8-26) Creatinine 1.0 mg/dL (0.7-1.3) Estimated GFR (Cockcroft-Gault) 89.6 BUN/Creatinine Ratio 12 (6-20) Glucose Level 93 mg/dL (70-99) Calcium Level 9.1 mg/dL (8.5-10.1) Magnesium Level 2.0 mg/dL (1.8-2.4) Total Bilirubin 0.4 mg/dL (0.2-1.0) Aspartate Amino Transf (AST/SGOT) 22 U/L (15-37) Alanine Aminotransferase (ALT/SGPT) 32 U/L (16-63) Alkaline Phosphatase 89 U/L (46-116) Troponin I Quantitative < 0.017 ng/mL (0.000-0.055) < 0.017 ng/mL (0.000-0.055) < 0.017 ng/mL (0.000-0.055) UZ-Iiu-W-Type Natriuretic Peptide 203 pg/mL (0-124) Total Protein 8.3 g/dL (6.4-8.2) Albumin 4.0 g/dL (3.4-5.0) Albumin/Globulin Ratio 0.9 (1.0-1.7) Triglycerides Level 59 mg/dL (0-150) Cholesterol Level 115 mg/dL (0-200) LDL Cholesterol, Calculated 51 mg/dL (0-100) VLDL Cholesterol, Calculated 12 mg/dL (0-40) Non-HDL Cholesterol Calculated 63 mg/dL (0-129) HDL Cholesterol 52 mg/dL (40-60) Cholesterol/HDL Ratio 2.2 Lipase 88 U/L (73-393) SARS-CoV-2 Antigen (Rapid) Negative (NEGATIVE) Medications Current Medications Lidocaine HCl (Lidocaine 1% 20ml Vial) 20 ml 1X ONCE INJ Last administered on 06/04/21at 13:45; Start 06/04/21 at 13:45; Stop 06/04/21 at 13:46; Status DC Morphine Sulfate (Morphine Sulfate) 4 mg PRN Q2HRS PRN IVP CHEST PAIN; Start 06/04/21 at 14:00 Nitroglycerin (Nitrostat) 0.4 mg PRN Q5MIN PRN SL CHEST PAIN; Start 06/04/21 at 14:00 Amiodarone HCl (Cordarone) 200 mg BID PO Last administered on 06/05/21at 08:34; Start 06/04/21 at 21:00 Aspirin (Ecotrin) 325 mg DAILYWBKFT PO Last administered on 06/05/21at 08:34; Start 06/05/21 at 08:00 Atorvastatin Calcium (Lipitor) 10 mg QHS PO Last administered on 06/04/21at 21:36; Start 06/04/21 at 21:00 Metoprolol Tartrate (Lopressor) 25 mg BID PO Last administered on 06/05/21at 08:35; Start 06/04/21 at 21:00 Trazodone HCl (Desyrel) 50 mg QHS PO Last administered on 06/04/21at 21:36; Start 06/04/21 at 21:00 Ondansetron HCl (Zofran) 4 mg PRN Q6HRS PRN IVP NAUSEA/VOMITING; Start 06/04/21 at 15:45 Al Hydroxide/Mg Hydroxide (Mylanta Plus Xs) 30 ml PRN Q3HRS PRN PO HEARTBURN / GAS; Start 06/04/21 at 15:45 Calcium Carbonate/ Glycine (Tums) 500 mg PRN Q3HRS PRN PO UPSET STOMACH; Start 06/04/21 at 15:45 Zolpidem Tartrate (Ambien) 5 mg PRN QHS PRN PO INSOMNIA, MAY REPEAT IN 1HR; Start 06/04/21 at 15:45 Acetaminophen/ Hydrocodone Bitart (Lortab 5/325) 1 tab PRN Q4HRS PRN PO MILD PAIN 1-3; Start 06/04/21 at 15:45 Acetaminophen (Tylenol) 650 mg PRN Q6HRS PRN PO Headaches, Temp > 101.5F; Start 06/04/21 at 15:45 Magnesium Hydroxide (Milk Of Magnesia) 2,400 mg PRN Q12HR PRN PO CONSTIPATION; Start 06/04/21 at 15:45 Heparin Sodium (Porcine) (Heparin Sodium) 5,000 unit Q8HRS SQ Last administered on 06/04/21at 21:37; Start 06/04/21 at 16:00 Active Scripts Active Metoprolol Tartrate 25 Mg Tablet 25 Mg PO BID Aspirin Ec (Aspirin) 325 Mg Tablet.dr 325 Mg PO DAILYWBKFT 30 Days Trazodone Hcl 50 Mg Tablet 1 Tab PO QHS Reported Atorvastatin Calcium 10 Mg Tablet 1 Tab PO QHS Amiodarone Hcl 200 Mg Tablet 1 Tab PO BID Take 200mg TWICE DAILY for 7 days, then take 200mg ONCE DAILY. [none] Vitals/I & O Vital Sign - Last 24 Hours 06/04/21 06/04/21 06/04/21 06/04/21 10:06 10:30 11:29 12:29 Temp 98.5 98.5 Pulse 62 58 56 58 Resp 18 B/P (MAP) 137/79 (98) 138/86 (103) 132/77 (95) 136/66 (89) Pulse Ox 100 99 99 99 O2 Delivery Room Air Room Air Room Air Room Air 06/04/21 06/04/21 06/04/21 06/04/21 13:29 13:59 14:29 14:59 Pulse 56 61 58 68 B/P (MAP) 143/76 (98) 145/80 (101) 143/89 (107) 149/87 (107) Pulse Ox 99 98 99 O2 Delivery Room Air Room Air Room Air Room Air 06/04/21 06/04/21 06/04/21 06/04/21 15:29 15:59 16:29 16:59 Pulse 56 60 62 60 B/P (MAP) 139/70 (93) 128/75 (92) 128/83 (98) 135/81 (99) Pulse Ox 97 97 98 O2 Delivery Room Air Room Air Room Air Room Air 06/04/21 06/04/21 06/04/21 06/04/21 17:29 18:29 20:00 20:24 Temp 98.0 98.0 Pulse 58 66 74 68 Resp 18 18 B/P (MAP) 138/82 (100) 136/79 (98) 140/79 (99) 149/89 (109) Pulse Ox 94 99 100 O2 Delivery Room Air Room Air Room Air Room Air 06/04/21 06/04/21 06/04/21 06/05/21 21:36 21:36 23:10 02:43 Temp 98.9 98.8 98.9 98.8 Pulse 68 68 61 68 Resp 16 16 B/P (MAP) 149/89 149/89 118/69 (85) 120/78 (92) Pulse Ox 96 99 O2 Delivery Room Air Room Air 06/05/21 06/05/21 06/05/21 07:00 08:34 08:35 Temp 97.8 97.8 Pulse 78 69 78 Resp 16 B/P (MAP) 116/68 (84) 116/68 116/68 Pulse Ox 95 O2 Delivery Room Air Intake and Output 06/04/21 06/04/21 06/05/21 15:00 23:00 07:00 Intake Total 100 ml 300 ml Output Total 450 ml Balance 100 ml -150 ml Justicifation of Admission Dx: Justifications for Admission: Justification of Admission Dx: No HERIBERTO SOSA MD Jun 05, 2021 08:40
[2021-06-05] MEDS ORDERED: PERFLUTREN PROTEIN-A MICROSPHR 0.22 MG/ML 3 ML VIAL. IV ONE ×2 (08:47→09:00)
--- NOTE | 2021-06-05 09:39 | NUR ---
SS following for discharge planning. SS reviewed pt chart and discussed with pt RN. Pt is from home and is currently on room air. COVID19 negative on rapid test. PCR pending at this time. Cardiology consulted. SS will continue to follow for discharge planning.
--- NOTE | 2021-06-05 10:20 | PDOC2 ---
ESA LABOY PNEUMATIC TOOL OPERATOR 06/05/21 1020: CARDIAC CONSULT DATE OF CONSULT Date of Consult DATE: 06/05/21 TIME: 09:52 REASON FOR CONSULT Reason for Consult: Chest pain REFERRING PHYSICIAN Referring Physician: Gricel SOURCE Source: Chart review, Patient HISTORY OF PRESENT ILLNESS HISTORY OF PRESENT ILLNESS This is a pleasant 71 yo male admitted for complains of chest pain. This is right side dull and nagging. No radiation. No nausea or vomiting, intractable coughing. Denies any SOA. However he has been SOA with exertion but reported that this has been ongoing for a while. Has quit smoking when he had his CABG 5 yrs ago. 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 Denies any falls or injury. He does take his cardiac meds and no recreational drug use. No S/S of covid-19 and he is unvaccinated. PAST MEDICAL HISTORY Cardiovascular: CAD, HTN, Hyperlipidemia PAST SURGICAL HISTORY Past Surgical History: CABG, Other (PCI prior to CABG) FAMILY HISTORY Family History: Coronary Artery Disease (mother) SOCIAL HISTORY Smoke: Quit ALCOHOL: occassional Drugs: None Lives: Alone CURRENT MEDICATIONS CURRENT MEDICATIONS Current Medications Medications (Trade) Dose Ordered Sig/Comfort Route PRN Reason Start Time Stop Time Status Last Admin Dose Admin Lidocaine HCl (Lidocaine 1% 20ml Vial) 20 ml 1X ONCE INJ 06/04/21 13:45 06/04/21 13:46 DC 06/04/21 13:45 Amiodarone HCl (Cordarone) 200 mg BID PO 06/04/21 21:00 06/05/21 08:34 Aspirin (Ecotrin) 325 mg DAILYWBKFT PO 06/05/21 08:00 06/05/21 08:34 Atorvastatin Calcium (Lipitor) 10 mg QHS PO 06/04/21 21:00 06/04/21 21:36 Metoprolol Tartrate (Lopressor) 25 mg BID PO 06/04/21 21:00 06/05/21 08:35 Trazodone HCl (Desyrel) 50 mg QHS PO 06/04/21 21:00 06/04/21 21:36 Heparin Sodium (Porcine) (Heparin Sodium) 5,000 unit Q8HRS SQ 06/04/21 16:00 06/04/21 21:37 ALLERGIES ALLERGIES: Coded Allergies: No Known Allergies (Verified Allergy, Unknown, 12/01/17) ROS Review of System 14 point ROS evaluated with pertinent positives noted per HPI VITALS/I&O VITALS/I&O: Vital Signs Date Time Temp Pulse Resp B/P (MAP) Pulse Ox O2 Delivery O2 Flow Rate FiO2 06/05/21 08:35 78 116/68 06/05/21 07:00 97.8 16 95 Room Air 97.8 I & O 06/04/21 06/04/21 06/05/21 15:00 23:00 07:00 Intake Total 100 ml 300 ml Output Total 450 ml Balance 100 ml -150 ml LABS Lab: Laboratory Tests Test 06/04/21 10:20 06/04/21 13:20 06/04/21 13:30 06/04/21 15:50 White Blood Count 6.4 x10^3/uL (4.0-11.0) Red Blood Count 4.30 x10^6/uL (4.30-5.70) Hemoglobin 14.2 g/dL (13.0-17.5) Hematocrit 41.8 % (39.0-53.0) Mean Corpuscular Volume 97 fL (79-100) Mean Corpuscular Hemoglobin 33 pg (25-35) Mean Corpuscular Hemoglobin Concent 34 g/dL (31-37) Red Cell Distribution Width 12.7 % (11.5-14.5) Platelet Count 242 x10^3/uL (140-400) Neutrophils (%) (Auto) 58 % (31-73) Lymphocytes (%) (Auto) 21 % (24-48) L Monocytes (%) (Auto) 16 % (0-9) H Eosinophils (%) (Auto) 4 % (0-3) H Basophils (%) (Auto) 1 % (0-3) Neutrophils # (Auto) 3.7 x10^3/uL (1.8-7.7) Lymphocytes # (Auto) 1.4 x10^3/uL (1.0-4.8) Monocytes # (Auto) 1.0 x10^3/uL (0.0-1.1) Eosinophils # (Auto) 0.3 x10^3/uL (0.0-0.7) Basophils # (Auto) 0.1 x10^3/uL (0.0-0.2) Sodium Level 140 mmol/L (136-145) Potassium Level 4.7 mmol/L (3.5-5.1) Chloride Level 100 mmol/L (98-107) Carbon Dioxide Level 29 mmol/L (21-32) Anion Gap 11 (6-14) Blood Urea Nitrogen 12 mg/dL (8-26) Creatinine 1.0 mg/dL (0.7-1.3) Estimated GFR (Cockcroft-Gault) 89.6 BUN/Creatinine Ratio 12 (6-20) Glucose Level 93 mg/dL (70-99) Calcium Level 9.1 mg/dL (8.5-10.1) Magnesium Level 2.0 mg/dL (1.8-2.4) Total Bilirubin 0.4 mg/dL (0.2-1.0) Aspartate Amino Transferase (AST) 22 U/L (15-37) Alanine Aminotransferase (ALT) 32 U/L (16-63) Alkaline Phosphatase 89 U/L (46-116) Troponin I Quantitative < 0.017 ng/mL (0.000-0.055) < 0.017 ng/mL (0.000-0.055) < 0.017 ng/mL (0.000-0.055) CX-Ixm-E-Type Natriuretic Peptide 203 pg/mL (0-124) H Total Protein 8.3 g/dL (6.4-8.2) H Albumin 4.0 g/dL (3.4-5.0) Albumin/Globulin Ratio 0.9 (1.0-1.7) L Triglycerides Level 59 mg/dL (0-150) Cholesterol Level 115 mg/dL (0-200) LDL Cholesterol, Calculated 51 mg/dL (0-100) VLDL Cholesterol, Calculated 12 mg/dL (0-40) Non-HDL Cholesterol Calculated 63 mg/dL (0-129) HDL Cholesterol 52 mg/dL (40-60) Cholesterol/HDL Ratio 2.2 Lipase 88 U/L (73-393) SARS-CoV-2 Antigen (Rapid) Negative (NEGATIVE) Laboratory Tests 06/04/21 10:20 Laboratory Tests 06/04/21 10:20 ASSESSMENT/PLAN ASSESSMENT/PLAN 1. Atypical CP: possibly MSK 2. HTN: controlled 3. HLP: on goal 4. CAD: past CABG and PCI prior, clinically stable 5. PUI Recommendations 1. Continue ASA, statin and metoprolol 2. Will schedule for outpt TTE and MPI 3. Will establish f/u with BINU Conde MD 06/05/21 4701: CARDIAC CONSULT ASSESSMENT/PLAN ASSESSMENT/PLAN Patient seen and examined. Agree with DISTRICT ASSOCIATE JUDGE's assessment and plan. Chest pain with atypical features and most probably musculoskeletal. Myocardial infarction has been ruled out. CAD status clinically stable overall. We will consider outpatient 2D echo and ischemic evaluation. Thank you for your consultation ESA LABOY APRN Jun 05, 2021 10:20 BINU HILLS MD Jun 05, 2021 17:09
[2021-06-05 10:31] VITALS: BP 124/81
--- NOTE | 2021-06-05 11:26 | PDOC3 ---
Discharge Summary Date of Admission: Jun 04, 2021 Date of Discharge: Jun 05, 2021 Follow-Up: 3-5 days Admitting Diagnosis comment: IMPRESSION Chest pain CAD History CABG HTN SKIN ABSCESS [id number] 06/04 , LIPOMA DRAINED IN ER Plan: Consultation cardiology REVIEWED full dose aspirin Initial troponin 0.017; trend troponins. NEG Morphine, nitroglycerin as needed Will obtain limited echocardiogram Echocardiogram from 06/09/2027 showed EF 60-65%, grade 1 diastolic dysfunction. Cardiac cath from 06/11/2017 showed CAD with stenosis above and below stent in OM, occluded small RCA with bridging collaterals, widemouth LV aneurysm, and decreased left ventricular EF in part due to this aneurysm Lipid panel pending Resume home medications FEN - Cardiac diet PPX - Heparin DNR Dispo - inpatient for above Patient names his brother (Juarez Wesftall) as surrogate decision-maker ASA, statin and metoprolol outpt TTE and MPI establish f/u with Dr. Henderson D/C PLANNING 27 MIN Justifications for Admission Justifications for Admission Other Justification History of Present Illness History of Present Illness Identification/Chief Complaint Chief Complaint Chest pain Source Source: Chart review, Patient History of Present Illness History of Present Illness Patient 71-year-old male with past medical history CAD, CABG, HTN, who presents to the ED with complaints of right-sided chest pain. He reports intermittent, aching chest pain over the past 3 days. Associated shortness of breath. Labs on admission were largely unremarkable; troponin <0.017, BNP 203. Chest x-ray showed no acute abnormality. He has history of cardiac cath performed in this hospital 06/11/2017 that showed CAD with stenosis above and below stent in OM, occluded small RCA with bridging collaterals, widemouth LV aneurysm, and decreased left ventricular EF in part due to this aneurysm; he was recommended aneurysmectomy and CABG. He is not followed by gaming host. He does note a history of "abscess "right back for years has recently started become painful. Dr. Pérez in ER is aware and will perform I&D. Will admit patient for further me dical management. Past Medical History Cardiovascular: CAD, HTN Past Surgical History Past Surgical History Cardiac stent Past Surgical History: CABG Family History Family History: Hypertension Social History Smoke: Quit ALCOHOL: heavy Drugs: None Current Medications Current Medications Active Scripts Active Cephalexin 500 Mg Tablet 1 Tab PO TID Mupirocin Ointment (Mupirocin) 22 Gm Oint...g. 1 Hitesh TP TID Bactrim Ds Tablet (Sulfamethoxazole/Trimethoprim) 1 Each Tablet 1 Tab PO BID Oxycodone-Acetaminophen 5-325 (Oxycodone Hcl/Acetaminophen) 1 Each Tablet 1-2 Tab PO PRN Q4-6HRS PRN Metoprolol Tartrate 25 Mg Tablet 25 Mg PO BID Aspirin Ec (Aspirin) 325 Mg Tablet.dr 325 Mg PO DAILYWBKFT 30 Days Trazodone Hcl 50 Mg Tablet 1 Tab PO QHS Folbic Tablet (Cyanocobalamin/Fa/Pyridoxine) 1 Each Tablet 1 Tab PO DAILY Reported Atorvastatin Calcium 10 Mg Tablet 1 Tab PO QHS Amiodarone Hcl 200 Mg Tablet 1 Tab PO BID Take 200mg TWICE DAILY for 7 days, then take 200mg ONCE DAILY. [none] Allergies Allergies: Coded Allergies: No Known Allergies (Verified Allergy, Unknown, 12/01/17) ROS Review of System GENERAL: No history of weight change, weakness or fevers. SKIN: No bruising, hair changes or rashes. EYES: No blurred, double or loss of vision. NOSE AND THROAT: No history of nosebleeds, hoarseness or sore throat. HEART: Chest pain. Denies palpitations. LUNGS: Shortness of breath. Denies cough, hemoptysis, or wheezing. GASTROINTESTINAL: Denies nausea, vomiting, abdominal pain. GENITOURINARY: Denies dysuria, frequency, urgency, hematuria. NEUROLOGIC: Denies history of numbness, tingling, tremor or weakness. PSYCHIATRIC: Denies anxiety, denies depression. ENDOCRINE: No history of heat or cold intolerance, polyuria or polydipsia. EXTREMITIES: Denies muscle weakness, joint pain, pain on walking or stiffness. Vitals Vitals Vital Signs Date Time Temp Pulse Resp B/P (MAP) Pulse Ox O2 Delivery O2 Flow Rate FiO2 06/05/21 08:35 78 116/68 06/05/21 07:00 97.8 16 95 Room Air 97.8 Physical Exam Physical Exam Physical Exam General: Alert, Oriented X3, Cooperative, No acute distress HEENT: PERRLA, EOMI Lungs: Clear to auscultation, Normal air movement Heart: RRR, no murmurs. Midline sternotomy scar. Cardiovascular: S1, S2 Abdomen: Normal bowel sounds, Soft, No tenderness Extremities: No clubbing, No cyanosis Skin: Lipoma to right upper back. Neuro: Normal speech, Normal tone, Sensation intact Psych/Mental Status: Mental status NL, Mood NL General: Alert, Oriented X3, Cooperative Heart: Normal S1, Normal S2 Lungs: Clear Abdomen: Soft, No tenderness Extremities: No cyanosis, Other (COVERED SKIN INCISED LIPOMA NO DRAINAGE) FINAL DIAGNOSIS Problems Medical Problems: (1) Chest pain Status: Acute (2) Skin abscess Status: Acute Brief Hospital Course Mr. Sullivan is a 71 old [sex] who presented with [ CHEST PAIN] CONDITION AT DISCHARGE: Improved Discharge Medications Current Medications Lidocaine HCl (Lidocaine 1% 20ml Vial) 20 ml 1X ONCE INJ Last administered on 06/04/21at 13:45; Start 06/04/21 at 13:45; Stop 06/04/21 at 13:46; Status DC Morphine Sulfate (Morphine Sulfate) 4 mg PRN Q2HRS PRN IVP CHEST PAIN; Start 06/04/21 at 14:00 Nitroglycerin (Nitrostat) 0.4 mg PRN Q5MIN PRN SL CHEST PAIN; Start 06/04/21 at 14:00 Amiodarone HCl (Cordarone) 200 mg BID PO Last administered on 06/05/21at 08:34; Start 06/04/21 at 21:00 Aspirin (Ecotrin) 325 mg DAILYWBKFT PO Last administered on 06/05/21at 08:34; Start 06/05/21 at 08:00 Atorvastatin Calcium (Lipitor) 10 mg QHS PO Last administered on 06/04/21at 21:36; Start 06/04/21 at 21:00 Metoprolol Tartrate (Lopressor) 25 mg BID PO Last administered on 06/05/21at 08:35; Start 06/04/21 at 21:00 Trazodone HCl (Desyrel) 50 mg QHS PO Last administered on 06/04/21at 21:36; Start 06/04/21 at 21:00 Ondansetron HCl (Zofran) 4 mg PRN Q6HRS PRN IVP NAUSEA/VOMITING; Start 06/04/21 at 15:45 Al Hydroxide/Mg Hydroxide (Mylanta Plus Xs) 30 ml PRN Q3HRS PRN PO HEARTBURN / GAS; Start 06/04/21 at 15:45 Calcium Carbonate/ Glycine (Tums) 500 mg PRN Q3HRS PRN PO UPSET STOMACH; Start 06/04/21 at 15:45 Zolpidem Tartrate (Ambien) 5 mg PRN QHS PRN PO INSOMNIA, MAY REPEAT IN 1HR; Start 06/04/21 at 15:45 Acetaminophen/ Hydrocodone Bitart (Lortab 5/325) 1 tab PRN Q4HRS PRN PO MILD PAIN 1-3; Start 06/04/21 at 15:45 Acetaminophen (Tylenol) 650 mg PRN Q6HRS PRN PO Headaches, Temp > 101.5F; Start 06/04/21 at 15:45 Magnesium Hydroxide (Milk Of Magnesia) 2,400 mg PRN Q12HR PRN PO CONSTIPATION; Start 06/04/21 at 15:45 Heparin Sodium (Porcine) (Heparin Sodium) 5,000 unit Q8HRS SQ Last administered on 06/04/21at 21:37; Start 06/04/21 at 16:00 Perflutren Protein Type A Microsphe (Optison) 0.66 mg STK-MED ONCE IV ; Start 06/05/21 at 08:47; Stop 06/05/21 at 08:47; Status DC Active Scripts Active Metoprolol Tartrate 25 Mg Tablet 25 Mg PO BID Aspirin Ec (Aspirin) 325 Mg Tablet. 325 Mg PO DAILYWBKFT 30 Days Trazodone Hcl 50 Mg Tablet 1 Tab PO QHS Reported Atorvastatin Calcium 10 Mg Tablet 1 Tab PO QHS Amiodarone Hcl 200 Mg Tablet 1 Tab PO BID Take 200mg TWICE DAILY for 7 days, then take 200mg ONCE DAILY. [none] Vital Signs Vital Signs Date Time Temp Pulse Resp B/P (MAP) Pulse Ox O2 Delivery O2 Flow Rate FiO2 06/05/21 10:31 97.7 59 16 124/81 (95) 99 Room Air 97.7 Labs Laboratory Tests Test 06/04/21 10:20 06/04/21 13:20 06/04/21 13:30 06/04/21 15:50 White Blood Count 6.4 x10^3/uL (4.0-11.0) Red Blood Count 4.30 x10^6/uL (4.30-5.70) Hemoglobin 14.2 g/dL (13.0-17.5) Hematocrit 41.8 % (39.0-53.0) Mean Corpuscular Volume 97 fL (79-100) Mean Corpuscular Hemoglobin 33 pg (25-35) Mean Corpuscular Hemoglobin Concent 34 g/dL (31-37) Red Cell Distribution Width 12.7 % (11.5-14.5) Platelet Count 242 x10^3/uL (140-400) Neutrophils (%) (Auto) 58 % (31-73) Lymphocytes (%) (Auto) 21 % (24-48) Monocytes (%) (Auto) 16 % (0-9) Eosinophils (%) (Auto) 4 % (0-3) Basophils (%) (Auto) 1 % (0-3) Neutrophils # (Auto) 3.7 x10^3/uL (1.8-7.7) Lymphocytes # (Auto) 1.4 x10^3/uL (1.0-4.8) Monocytes # (Auto) 1.0 x10^3/uL (0.0-1.1) Eosinophils # (Auto) 0.3 x10^3/uL (0.0-0.7) Basophils # (Auto) 0.1 x10^3/uL (0.0-0.2) Sodium Level 140 mmol/L (136-145) Potassium Level 4.7 mmol/L (3.5-5.1) Chloride Level 100 mmol/L (98-107) Carbon Dioxide Level 29 mmol/L (21-32) Anion Gap 11 (6-14) Blood Urea Nitrogen 12 mg/dL (8-26) Creatinine 1.0 mg/dL (0.7-1.3) Estimated GFR (Cockcroft-Gault) 89.6 BUN/Creatinine Ratio 12 (6-20) Glucose Level 93 mg/dL (70-99) Calcium Level 9.1 mg/dL (8.5-10.1) Magnesium Level 2.0 mg/dL (1.8-2.4) Total Bilirubin 0.4 mg/dL (0.2-1.0) Aspartate Amino Transf (AST/SGOT) 22 U/L (15-37) Alanine Aminotransferase (ALT/SGPT) 32 U/L (16-63) Alkaline Phosphatase 89 U/L (46-116) Troponin I Quantitative < 0.017 ng/mL (0.000-0.055) < 0.017 ng/mL (0.000-0.055) < 0.017 ng/mL (0.000-0.055) XJ-Uav-F-Type Natriuretic Peptide 203 pg/mL (0-124) Total Protein 8.3 g/dL (6.4-8.2) Albumin 4.0 g/dL (3.4-5.0) Albumin/Globulin Ratio 0.9 (1.0-1.7) Triglycerides Level 59 mg/dL (0-150) Cholesterol Level 115 mg/dL (0-200) LDL Cholesterol, Calculated 51 mg/dL (0-100) VLDL Cholesterol, Calculated 12 mg/dL (0-40) Non-HDL Cholesterol Calculated 63 mg/dL (0-129) HDL Cholesterol 52 mg/dL (40-60) Cholesterol/HDL Ratio 2.2 Lipase 88 U/L (73-393) SARS-CoV-2 Antigen (Rapid) Negative (NEGATIVE) Laboratory Tests Test 06/04/21 13:20 06/04/21 13:30 06/04/21 15:50 SARS-CoV-2 Antigen (Rapid) Negative (NEGATIVE) Troponin I Quantitative < 0.017 ng/mL (0.000-0.055) < 0.017 ng/mL (0.000-0.055) Allergies Allergies Coded Allergies Type Severity Reaction Last Updated Verified No Known Allergies Allergy Unknown 12/01/17 Yes Disposition/Orders: D/C to Home Justicifation of Admission Dx: Justifications for Admission: Justification of Admission Dx: No HERIBERTO SOSA MD Jun 05, 2021 11:26
[2021-06-05] MEDS ORDERED: NITR0.4T24 SL (11:28)
[2021-06-05] MEDS ORDERED: ACET325T21 PO (11:28)
[2021-06-05] MEDS ORDERED: CEPH250C PO (11:28)
--- NOTE | 2021-06-05 11:29 | DISCH ---
DISCHARGE INSTRUCTIONS Condition on Discharge Condition on Discharge: Stable Activity After Discharge Activity Instructions for Disc: Resume previous activity Driving Instructions after Dis: Do not drive today Diet after Discharge Diet after Discharge: Cardiac Liquid Texture: Thin Liquid Wound Incision Care Wound Care Equipment: Dressings Checks after Discharge Checks after discharge: Check blood press - daily Contacting the DR. after DC Call your doctor for: If your condition worsens Follow-Up Follow up with: PCP IN 3-7 DAYS, CARDIOLOGY ONE WEEK Treatment/Equipment after DC Adaptive Equipment Issued: None HERIBERTO SOSA MD Jun 05, 2021 11:29
--- NOTE | 2021-06-05 12:40 | CARD ---
MR#: [id number] Date of Study: 06/05/2021 Ordering Physician: LUTHER FREEMAN, Referring Physician: Samaria STEVEN: Gabriel Mckee [facility] APPROVED REPORT EXAM: LIMITED Two-dimensional and M-mode echocardiogram with Doppler and color Doppler. Other Information Quality : AverageHR: 60bpm Rhythm : NSR INDICATION Chest Pain Surgery/Intervention CABG: RISK FACTORS Hypertension Hyperlipidemia Smoking Etoh 2D DIMENSIONS Left Atrium(2D)3.9 (1.6-4.0cm)IVSd1.3 (0.7-1.1cm) Aortic Root(2D)3.5 (2.0-3.7cm)LVDd4.3 (3.9-5.9cm) PWd1.3 (0.7-1.1cm)LVDs2.6 (2.5-4.0cm) FS (%) 39.7 %SV59.3 ml LVEF(%)70.6 (>50%) Tricuspid Valve TR P. [id number] Peak Gr.17mmHg LEFT VENTRICLE The left ventricle is normal size. There is mild concentric left ventricular hypertrophy. The left ve ntricular systolic function is normal and the ejection fraction is within normal range. EF 55% Septal motion suggestive of prior CABG and conduction defect. The mid to distal anterior wall is not well v isualized. Not assessed. No left ventricle thrombus noted on this study. There is no ventricular sept al defect visualized. There is no left ventricular aneurysm. There is no mass noted in the left ventr icle. RIGHT VENTRICLE The right ventricle is normal size. There is normal right ventricular wall thickness. The right ventr icular systolic function is normal. ATRIA The left atrium is borderline dilated. The right atrium size is normal. The interatrial septum is int act with no evidence for an atrial septal defect or patent foramen ovale as noted on 2-D or Doppler i maging. AORTIC VALVE The aortic valve is trileaflet. The aortic valve is mildly sclerotic. Doppler and Color Flow revealed no significant aortic regurgitation. There is no significant aortic valvular stenosis. There is no a ortic valvular vegetation. MITRAL VALVE The mitral valve is normal in structure and function. There is no evidence of mitral valve prolapse. There is no mitral valve stenosis. Doppler and Color-flow revealed trace to mild mitral regurgitation . TRICUSPID VALVE The tricuspid valve is normal in structure and function. Doppler and Color Flow revealed mild tricusp id regurgitation. There is no tricuspid valve prolapse or vegetation. There is no tricuspid valve brett nosis. PULMONIC VALVE Doppler and Color Flow revealed no pulmonic valvular regurgitation. There is no pulmonic valvular brett nosis. GREAT VESSELS The aortic root is normal in size. The IVC is normal in size and collapses >50% with inspiration. PERICARDIAL EFFUSION There is no pleural effusion. There is no evidence of significant pericardial effusion. Critical Notification Critical Value: No <Conclusion> The left ventricular systolic function is normal and the ejection fraction is within normal range. EF 55% Septal motion suggestive of prior CABG and conduction defect. The mid to distal anterior wall is not well visualized. Signed by : Jeff Kessler, Electronically Approved : 06/05/2021 12:40:06
[2021-06-05] MEDS ORDERED: CEPHALEXIN 250 MG CAPSULE. PO SCH (13:00)
== END 2021-06-05 13:00 | disposition home or self-care (01) ==
LOC: ER 09:51 → ED HOLD 13:33 → 6 SOUTH 20:01
PROVIDERS: ADMIT Family Medicine; ATTEND Family Medicine
DX: R07.2 Precordial pain (principal); D17.9 Benign lipomatous neoplasm, unspecified; I25.10 Atherosclerotic heart disease of native coronary artery without angina pectoris; Z20.822 Contact with and (suspected) exposure to COVID-19; E78.5 Hyperlipidemia, unspecified; I10 Essential (primary) hypertension; Z79.82 Long term (current) use of aspirin; Z95.1 Presence of aortocoronary bypass graft; Z87.891 Personal history of nicotine dependence; Z95.5 Presence of coronary angioplasty implant and graft; Z79.899 Other long term (current) drug therapy
CPT/HCPCS: 10060; 36415; 71045; 80053; 80061; 83690; 83735; 83880; 84484; 85025; 87426; 93005; 93308; 96372; 99285; G0378; J1644; J3490; Q9956; U0003; U0005; G0379

== ENCOUNTER → 2021-07-14 | Outpatient (CLI) | payer OTHER ==
[~2021-07-14] MED LIST changes: +ACET325T21 PO; +CEPH250C PO; +NITR0.4T24 SL; +REGADENOSON 0.4 MG/5 ML DISP.SYRIN. IV ONE
--- NOTE | 2021-07-14 16:53 | RAD ---
MR#: [id number] Date of Study: 07/14/2021 Ordering Physician: BINU HILLS, Referring Physician: IMANI DAMON Tech: RT Phill (R) (N) APPROVED REPORT Test Type: Pharmacological Stress Nurse/Tech: Noris Lopez RN Test Indications: Chest Pain Cardiac History: CABG 6yrs ago, HTN, See EMR. Medications: See EMR. Medical History: See EMR. Resting ECG: SR Resting Heart Rate: 62 bpm Resting Blood Pressure: 124/65mmHg Pretest Chest Pain: No chest pain Nurse/Tech Notes Lungs CTA, Heart tones regular. Consent: The procedure was explained to the patient in lay terms. Informed consent was witnessed. Yoni eout was entered into [facility]. History and Stress Test performed by BELGICA Coon Pharm. Details Pharmacologic stress testing was performed using 0.4mg per 5ml of regadenoson given intravenously ove r 7-10 seconds. Stress Symptoms No chest pain or symptoms. POST EXERCISE Reason for Termination: Infusion complete Max HR: 95 bpm Max Blood Pressure: 135/64mmHg Blood Pressure response to exercise: Normal blood pressure response during stress. Heart Rate response to exercise: WNL Chest Pain: No. Arrhythmia: No. ST Change: No. INTERPRETATION Stress EKG Conclusion: No evidence of stress induced EKG changes. Imaging Protocol IMAGE PROTOCOL: Rest Tc-99m/stress Tc-99m 1 day Rest: Stress: Viability: Radiopharm.Tc99m HenemsymiSc96s Sestamibi Ituy5cUs 33mCi Duration 13min. 13min. Img Date 07/14/2021 07/14/2021 Inj-Img [id number]. 60min. Rest Admin Site:IV - Left HandAdministrator:RT Case (Shyam)(N) Stress Admin Site: IV - Left HandAdministrator: BELGICA Coon STRESS DATA End Diast. Vol.119.0mlLVEDV index BSA55.0ml End Syst. Vol.48.0mlLVESV index BSA22.0ml Myocardial Bwgl467.0gEject. Pqcerpiz36.0% Stress Scores Regional WT0.00Summed WT5.00 Regional WM0.00Summed WM11.00 LV Perfusion There is a moderate to large size mid to distal anterior and anteroseptal fixed perfusion defect cons istent with prior infarct in the LAD territory without any active ischemia. Wall Motion Grossly normal ejection fraction with a EF of 55% LV Perf. Quant 17 Seg. SSS18.00 17 Seg. SRS17.00 17 Seg. SDS1.00 Stress Defect Extent (% LAD)48.80Rest Defect Extent (% LAD)45.60Rev. Defect Extent (% LAD)3.80 Stress Defect Extent (% LCX) 41.30Rest Defect Extent (% LCX)35.00Rev. Defect Extent (% LCX)5.00 Stress Defect Extent (% RCA)0.00Rest Defect Extent (% RCA)0.00Rev. Defect Extent (% RCA)0.00 Stress Defect Extent (% JORDYN)33.50Rest Defect Extent (% JORDYN)29.60Rev. Defect Extent (% JORDYN)2.80 Other Information Quality:Good Risk Assessment: Low Risk Conclusion 1. No evidence of stress-induced EKG changes 2. Moderate to large fixed defect involving the mid to distal LAD territory without active ischemia 3. Normal EF with ejection fraction of 55% 4. Moderate risk for future cardiovascular events Signed by : Jeff Kessler, Electronically Approved : 07/14/2021 16:52:48
== END ==
LOC: NM 08:13
PROVIDERS: ATTEND Internal Medicine Cardiovascular Disease
DX: R07.9 Chest pain, unspecified (principal)
CPT/HCPCS: 78452; 93017; A9500; J2785